=== PATIENT | female | born 1965 | race Caucasian/White ===

== ENCOUNTER 2018-07-12 16:09 | Emergency (ER) | payer SELFPAY ==
[2018-07-12] MEDS ORDERED: CEFTRIAXONE/SWI 1gm 2 GM/20 ML SYR ONE (17:55)
--- NOTE | 2018-07-12 18:04 | RAD REPORT ---
EXAM DESCRIPTION: RAD - Chest Single View - 07/12/2018 5:58 pm CLINICAL HISTORY: Cough;Congestion Chest pain. COMPARISON: No comparisons FINDINGS: Portable technique limits examination quality. Poorly defined lung opacity in the medial right lung base noted. The heart is normal in size. No disp laced fractures. IMPRESSION: Small early pneumonia likely present medial right lung base.
[2018-07-12 18:12] LABS: Absolute Monocytes 0.9 K/uL (0.1-1.3); Basophils % 0.3 % (0-1.3); Eosinophils % 1.4 % (0-4.4); Lymphocytes % 12.2 % (15.3-44.8); MPV 9.2 fL (7.6-11.3); Monocytes % 5.3 % (3.3-12.3)
[2018-07-12 18:28] LABS: Potassium 3.9 mmol/L (3.5-5.1)
--- NOTE | 2018-07-12 18:47 | ER ---
Nurse's Notes [facility] Name: Sena uW Age: 53 yrs Sex: Female : 1965 Arrival Date: 07/12/2018 Time: 16:13 Bed 7 Private MD: None, None Diagnosis: Pneumonia, unspecified organism Presentation: 07/12 16:19 Presenting complaint: Patient states: i have a cough fever and chills for 5 days ago, hj went to my doctor, said i had a virus and i got worse; reports N/V;reports SOB. Transition of care: patient was not received from another setting of care. Onset of symptoms was July 12, 2018. Risk Assessment: Do you want to hurt yourself or someone else? Patient reports no desire to harm self or others. Initial Sepsis Screen: Does the patient meet any 2 criteria? RR > 20 per min. Temp <36.0*C (96.8*F)) or > 38.3*C (100.9*F). Systolic BP < 90 mmHg. Does the patient have a suspected source of infection? Yes: Productive cough/pneumonia. Care prior to arrival: None. 16:19 Method Of Arrival: Ambulatory 16:19 Acuity: DREW 3 hj Triage Assessment: 16:22 General: Appears in no apparent distress. uncomfortable, obese, Behavior is calm, hj cooperative, appropriate for age. Respiratory: Reports shortness of breath cough that is Onset: The symptoms/episode began/occurred the patient has moderate shortness of breath. 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 - Social history:: Smoking status: Patient/guardian denies using tobacco, Patient/guardian denies using alcohol. - Ebola Screening: : Patient negative for fever greater than or equal to 101.5 degrees Fahrenheit, and additional compatible Ebola Virus Disease symptoms Patient denies exposure to infectious person Patient denies travel to an Ebola-affected area in the 21 days before illness onset. Screenin:22 Abuse screen: Denies threats or abuse. Denies injuries from another. Nutritional hj screening: No deficits noted. Tuberculosis screening: No symptoms or risk factors identified. Fall Risk None identified. Assessment: 16:23 Pain: Complains of pain in chest from coughing. Cardiovascular: Rhythm is. Respiratory: hj Airway is patent Respiratory effort is even, unlabored, 17:28 General: Appears in no apparent distress. comfortable, Behavior is calm, cooperative, aj1 appropriate for age. Pain: Complains of pain in face Pain does not radiate. Pain Quality of pain is described as aching, pressure. Neuro: Level of Consciousness is awake, alert, obeys commands. Cardiovascular: Reports shortness of breath. Cardiovascular: Patient's skin is warm and dry. Cardiovascular: Rhythm is regular. Cardiovascular: Heart tones S1 S2 present. Respiratory: Airway is patent Respiratory effort is even, unlabored. Respiratory: Reports shortness of breath cough that is persistent Breath sounds are clear bilaterally. GI: Abdomen is non-distended, obese. : No signs and/or symptoms were reported regarding the genitourinary system. EENT: Reports nasal congestion nasal discharge. Derm: No signs and/or symptoms reported regarding the dermatologic system. Skin is pink, warm \T\ dry. normal. Musculoskeletal: No signs and/or symptoms reported regarding the musculoskeletal system. Circulation, motion, and sensation intact. 18:24 Reassessment: Patient appears in no apparent distress at this time. No changes from aj1 previously documented assessment. Patient and/or family updated on plan of care and expected duration. Pain level reassessed. Patient is alert, oriented x 3, equal unlabored respirations, skin warm/dry/pink. 19:11 Reassessment: Patient appears in no apparent distress at this time. No changes from aj1 previously documented assessment. Patient and/or family updated on plan of care and expected duration. Pain level reassessed. Patient is alert, oriented x 3, equal unlabored respirations, skin warm/dry/pink. Vital Signs: 16:18 BP 110 / 63; Pulse 106; Resp 20; Temp 100.1(O); Pulse Ox 96% on R/A; Weight 154.67 kg; hj Height 5 ft. 1 in. (154.94 cm); 17:28 BP 142 / 80; Pulse 98; Resp 18; Pulse Ox 99% on R/A; aj1 18:24 BP 139 / 79; Pulse 91; Resp 20; Pulse Ox 95% on R/A; aj1 19:11 BP 141 / 81; Pulse 90; Resp 20; Pulse Ox 97% on R/A; aj1 16:18 Body Mass Index 64.43 (154.67 kg, 154.94 cm) ED Course: 16:13 Patient arrived in ED. mr 16:13 None, None is Private Physician. mr 16:20 Triage completed. hj 16:23 Arm band placed on right wrist. hj 16:23 Patient has correct armband on for positive identification. Placed in gown. Bed in low hj position. Call light in reach. 16:52 Jatin Higuera MD is Attending Physician. kdr 17:28 Ayana Jacob RN is Primary Nurse. aj1 17:28 No provider procedures requiring assistance completed. aj1 17:58 Chest Single View In Process Unspecified. EDAZ 18:00 Initial lab(s) drawn, by ne, sent to lab. First set of blood cultures drawn by me. 3 Inserted saline lock: 22 gauge in left antecubital area, using aseptic technique. Blood collected. 18:20 Second set of blood cultures drawn by me. dh3 19:11 IV discontinued, intact, bleeding controlled, No redness/swelling at site. Pressure aj1 dressing applied. Administered Medications: 18:23 Drug: Rocephin - (cefTRIAXone) 2 grams Route: IVPB; Infused Over: 30 mins; Site: left aj1 antecubital; 18:33 Follow up: IV Status: Completed infusion aj1 Outcome: 18:46 Discharge ordered by . kdr 19:12 Discharged to home via wheelchair, with family. aj1 19:12 Condition: good 19:12 Discharge instructions given to patient, Instructed on discharge instructions, follow up and referral plans. medication usage, Demonstrated understanding of instructions, follow-up care, medications, Prescriptions given X 2. 19:23 Patient left the ED. aj1 Signatures: Dispatcher [employer] [facility] Ayana Jacob RN RN aj1 RitJatin tran MD MD kdr Rivera, Mary mr Jarrell Short RN RN Gwen Gutierrez [facility] Corrections: (The following items were deleted from the chart) 16:19 16:18 154.67 kg; Height 5 ft. 1 in.; BMI: 64.4; hj hj 16:23 16:18 Pulse 106bpm; Resp 20bpm; Pulse Ox 96% RA; Temp 100.1F Oral; 154.67 kg; Height 5 hj ft. 1 in.; BMI: 64.4; hj
--- NOTE | 2018-07-12 18:47 | EDPHYS ---
Physician Documentation [facility] Name: Sena Wu Age: 53 yrs Sex: Female : 1965 Arrival Date: 07/12/2018 Time: 16:13 Bed 7 Private MD: None, None ED Physician Jatin Higuera HPI: 07/12 18:10 This 53 yrs old Female presents to ER via Ambulatory with complaints of kdr Shortness Of Breath, Fever, Cough. 18:10 The patient has shortness of breath at rest, with light activity. Onset: The kdr symptoms/episode began/occurred gradually, 5 day(s) ago. Duration: The symptoms are intermittent, with no pattern. The patient's shortness of breath is aggravated by coughing, eating, exertion, light activity, talking, walking. Associated signs and symptoms: Pertinent positives:. Severity of symptoms: At their worst the symptoms were mild moderate in the emergency department the symptoms are unchanged. The patient has not experienced similar symptoms in the past. The patient has been recently seen by a physician: The patient has been recently seen at an urgent care, this week, last week, for similar complaints. 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 - Social history:: Smoking status: Patient/guardian denies using tobacco, Patient/guardian denies using alcohol. - Ebola Screening: : Patient negative for fever greater than or equal to 101.5 degrees Fahrenheit, and additional compatible Ebola Virus Disease symptoms Patient denies exposure to infectious person Patient denies travel to an Ebola-affected area in the 21 days before illness onset. ROS: 18:10 Constitutional: Negative for fever, chills, and weight loss, Eyes: Negative for injury, kdr pain, redness, and discharge, ENT: Negative for injury, pain, and discharge, Neck: Negative for injury, pain, and swelling, Cardiovascular: Negative for chest pain, palpitations, and edema, Respiratory: Negative for shortness of breath, cough, wheezing, and pleuritic chest pain, Abdomen/GI: Negative for abdominal pain, nausea, vomiting, diarrhea, and constipation, Back: Negative for injury and pain, : Negative for injury, bleeding, discharge, and swelling, MS/Extremity: Negative for injury and deformity, Skin: Negative for injury, rash, and discoloration, Neuro: Negative for headache, weakness, numbness, tingling, and seizure activity. Psych: Negative for depression, anxiety, suicide ideation, homicidal ideation, and hallucinations, Allergy/Immunology: Negative for hives, rash, and allergies, Endocrine: Negative for neck swelling, polydipsia, polyuria, polyphagia, and marked weight changes, Hematologic/Lymphatic: Negative for swollen nodes, abnormal bleeding, and unusual bruising. Exam: 18:10 Constitutional: This is a well developed, well nourished obese patient who is awake, kdr alert, and in mildacute distress. Head/Face: Normocephalic, atraumatic. Eyes: Pupils equal round and reactive to light, extra-ocular motions intact. Lids and lashes normal. Conjunctiva and sclera are non-icteric and not injected. Cornea within normal limits. Periorbital areas with no swelling, redness, or edema. Neck: Trachea midline, no thyromegaly or masses palpated, and no cervical lymphadenopathy. Supple, full range of motion without nuchal rigidity, or vertebral point tenderness. No Meningismus. Chest/axilla: Normal chest wall appearance and motion. Nontender with no deformity. No lesions are appreciated. Cardiovascular: Regular rate and rhythm with a normal S1 and S2. No gallops, murmurs, or rubs. Normal PMI, no JVD. No pulse deficits. Abdomen/GI: Soft, non-tender, with normal bowel sounds. No distension or tympany. No guarding or rebound. No evidence of tenderness throughout. Back: No spinal tenderness. No costovertebral tenderness. Full range of motion. Skin: Warm, dry with normal turgor. Normal color with no rashes, no lesions, and no evidence of cellulitis. MS/ Extremity: Pulses equal, no cyanosis. Neurovascular intact. Full, normal range of motion. Neuro: Awake and alert, GCS 15, oriented to person, place, time, and situation. Cranial nerves II-XII grossly intact. Motor strength 5/5 in all extremities. Sensory grossly intact. Cerebellar exam normal. Normal gait. Psych: Awake, alert, with orientation to person, place and time. Behavior, mood, and affect are within normal limits. 18:10 Respiratory: the patient does not display signs of respiratory distress, Respirations: Breath sounds: rales, are scattered, are located in both bases, are heard diffusely, rhonchi. Vital Signs: 16:18 BP 110 / 63; Pulse 106; Resp 20; Temp 100.1(O); Pulse Ox 96% on R/A; Weight 154.67 kg; hj Height 5 ft. 1 in. (154.94 cm); 17:28 BP 142 / 80; Pulse 98; Resp 18; Pulse Ox 99% on R/A; aj1 18:24 BP 139 / 79; Pulse 91; Resp 20; Pulse Ox 95% on R/A; aj1 19:11 BP 141 / 81; Pulse 90; Resp 20; Pulse Ox 97% on R/A; aj1 16:18 Body Mass Index 64.43 (154.67 kg, 154.94 cm) hj MDM: 18:10 Data reviewed: vital signs, nurses notes, lab test result(s), radiologic studies. kdr Counseling: I had a detailed discussion with the patient and/or guardian regarding: the historical points, exam findings, and any diagnostic results supporting the discharge/admit diagnosis, lab results, radiology results, the need for outpatient follow up. 18:46 Patient medically screened. kdr 07/12 16:29 Order name: Flu; Complete Time: 17:31 kb 07/12 17:31 Order name: CBC with Diff; Complete Time: 18:44 kdr 07/12 17:31 Order name: Chem 7; Complete Time: 18:44 kdr 07/12 17:31 Order name: Blood Culture Adult (2) kdr 07/12 17:31 Order name: Lactate; Complete Time: 18:44 kdr 07/12 17:31 Order name: Procalcitonin; Complete Time: 18:44 kdr 07/12 17:31 Order name: Chest Single View; Complete Time: 18:44 EDMS Administered Medications: 18:23 Drug: Rocephin - (cefTRIAXone) 2 grams Route: IVPB; Infused Over: 30 mins; Site: left aj1 antecubital; 18:33 Follow up: IV Status: Completed infusion aj1 Disposition: 07/12/18 18:46 Discharged to Home. Impression: Pneumonia, unspecified organism. - Condition is Stable. - Discharge Instructions: Community-Acquired Pneumonia, Adult. - Prescriptions for Promethazine VC 6.25- 5 mg/5 mL Oral syrup - take 5 milliliter by ORAL route every 4 hours As needed Take 5 - 10 ml every 6 hoursd as needed for cough; 200 milliliter. Augmentin 875- 125 mg Oral Tablet - take 1 tablet by ORAL route every 12 hours for 10 days; 20 tablet. - Medication Reconciliation Form, Thank You Letter, Antibiotic Education, Prescription Opioid Use form. - Follow up: Private Physician; When: 2 - 3 days; Reason: If symptoms return, Further diagnostic work-up, Recheck today's complaints, Continuance of care, Re-evaluation by your physician. - Problem is new. - Symptoms have improved. Signatures: Dispatcher [employer] [facility] Ayana Jacob RN RN aj1 Jatin Higuera MD MD [facility] Jarrell Short RN RN hj Corrections: (The following items were deleted from the chart) 17:31 16:30 Chest Pa And Lat (2 Views)+[id number].[email or web address] ordered. [facility] 19:23 18:46 07/12/2018 18:46 Discharged to Home. Impression: Pneumonia, unspecified organism. aj1 Condition is Stable. Forms are Medication Reconciliation Form, Thank You Letter, Antibiotic Education, Prescription Opioid Use. Follow up: Private Physician; When: 2 - 3 days; Reason: If symptoms return, Further diagnostic work-up, Recheck today's complaints, Continuance of care, Re-evaluation by your physician. Problem is new. Symptoms have improved. kdr
== END 2018-07-12 19:23 | disposition home or self-care (01) ==
LOC: ER 16:09
DX: J18.9 Pneumonia, unspecified organism (principal); I10 Essential (primary) hypertension; F32.9 Major depressive disorder, single episode, unspecified; Z79.1 Long term (current) use of non-steroidal anti-inflammatories (NSAID); Z79.899 Other long term (current) drug therapy
CPT/HCPCS: 36415; 71045; 80048; 83605; 84145; 85025; 87040; 87804; 96374; 99284; J0696

== ENCOUNTER 2018-07-26 18:04 | Emergency (ER) | payer SELFPAY ==
--- NOTE | 2018-07-26 19:43 | EDPHYS ---
Physician Documentation [facility] Name: Sena Wu Age: 53 yrs Sex: Female : 1965 Arrival Date: 07/26/2018 Time: 18:07 Bed 19 Private MD: ED Physician Michael Pacheco HPI: 07/26 19:00 This 53 yrs old Female presents to ER via Ambulatory with complaints of Sore pm1 throat. 19:00 The patient presents with sore throat. The patient describes throat pain as constant, pm1 scratchy. Onset: The symptoms/episode began/occurred yesterday. Modifying factors: The symptoms are alleviated by nothing, the symptoms are aggravated by nothing, Patient's oral intake status: good Denies contact with similarly ill indivduals. Associated signs and symptoms: Pertinent positives: cough, nasal congestion, Pertinent negatives fever, flu-like symptoms. The patient has been recently seen at the [facility] Emergency Department, a couple of weeks ago, diagnosed with pneumonia. Has completed antibiotics and feels better. Was given a prescription for cough suppressant but did not fill it due to the cost. Has some occasional coughing. No chest pain or shortness of breath. 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 - Social history:: Smoking status: Patient/guardian denies using tobacco. - Ebola Screening: : No symptoms or risks identified at this time. ROS: 19:00 Constitutional: Negative for fever, chills, and weight loss, Eyes: Negative for injury, pm1 pain, redness, and discharge. 19:00 Neck: Negative for injury, pain, and swelling, Cardiovascular: Negative for chest pain, palpitations, and edema. 19:00 Abdomen/GI: Negative for abdominal pain, nausea, vomiting, diarrhea, and constipation, Back: Negative for injury and pain, : Negative for injury, bleeding, discharge, and swelling, MS/Extremity: Negative for injury and deformity, Skin: Negative for injury, rash, and discoloration, Neuro: Negative for headache, weakness, numbness, tingling, and seizure. 19:00 ENT: Positive for sinus congestion, sore throat, Negative for drainage from ear(s), ear pain. 19:00 Respiratory: Positive for cough, Negative for shortness of breath, sputum production, wheezing. Exam: 19:00 Constitutional: This is a well developed, well nourished patient who is awake, alert, pm1 and in no acute distress. Head/Face: Normocephalic, atraumatic. Eyes: Pupils equal round and reactive to light, extra-ocular motions intact. Lids and lashes normal. Conjunctiva and sclera are non-icteric and not injected. Cornea within normal limits. Periorbital areas with no swelling, redness, or edema. ENT: Nares patent. No nasal discharge, no septal abnormalities noted. Tympanic membranes are normal and external auditory canals are clear. Oropharynx with no redness, swelling, or masses, exudates, or evidence of obstruction, uvula midline. Mucous membranes moist. Neck: Trachea midline, no thyromegaly or masses palpated, and no cervical lymphadenopathy. Supple, full range of motion without nuchal rigidity, or vertebral point tenderness. No Meningismus. Chest/axilla: Normal chest wall appearance and motion. Nontender with no deformity. No lesions are appreciated. Cardiovascular: Regular rate and rhythm with a normal S1 and S2. No gallops, murmurs, or rubs. Normal PMI, no JVD. No pulse deficits. Respiratory: Lungs have equal breath sounds bilaterally, clear to auscultation and percussion. No rales, rhonchi or wheezes noted. No increased work of breathing, no retractions or nasal flaring. 19:00 Back: No spinal tenderness. No costovertebral tenderness. Full range of motion. Skin: Warm, dry with normal turgor. Normal color with no rashes, no lesions, and no evidence of cellulitis. MS/ Extremity: Pulses equal, no cyanosis. Neurovascular intact. Full, normal range of motion. 19:00 Abdomen/GI: Inspection: obese Bowel sounds: normal, Palpation: abdomen is soft and non-tender. 19:00 Neuro: Orientation: is normal, Motor: is normal, moves all fours. Vital Signs: 18:19 BP 143 / 83; Pulse 86; Resp 16 S; Temp 97.9(O); Pulse Ox 97% on R/A; Weight 156.49 kg jl7 (R); Height 5 ft. 1 in. (154.94 cm) (R); Pain 0/10; 19:05 BP 126 / 80; Pulse 80; Resp 17; Temp 97.9; Pulse Ox 98% ; rr5 20:00 BP 125 / 70; Pulse 75; Resp 16; Pulse Ox 99% ; rr5 18:19 Body Mass Index 65.19 (156.49 kg, 154.94 cm) jl7 MDM: 18:34 Patient medically screened. pm1 19:27 Data reviewed: vital signs. Data interpreted: Pulse oximetry: on room air is 98 %. pm1 Interpretation: normal. 19:38 Counseling: I had a detailed discussion with the patient and/or guardian regarding: the pm1 historical points, exam findings, and any diagnostic results supporting the discharge/admit diagnosis, lab results, the need for outpatient follow up, to return to the emergency department if symptoms worsen or persist or if there are any questions or concerns that arise at home. 07/26 18:53 Order name: Strep; Complete Time: 19:27 pm1 07/26 19:27 Order name: Throat Culture EDMS Administered Medications: No medications were administered Disposition: 07/26/18 19:42 Discharged to Home. Impression: Acute pharyngitis. - Condition is Stable. - Discharge Instructions: Pharyngitis. - Medication Reconciliation Form, Thank You Letter, Antibiotic Education, Prescription Opioid Use form. - Follow up: Emergency Department; When: As needed; Reason: Worsening of condition. Follow up: Private Physician; When: 2 - 3 days; Reason: Recheck today's complaints, Continuance of care, Re-evaluation by your physician. - Problem is new. - Symptoms have improved. Addendum: 07/29/2018 20:26 Co-signature as Attending Physician, Michael Pacheco MD. r n Signatures: Dispatcher [employer] EDMichael Addison MD MD rn Marinas, Patrick, PLASTIC BLOCK BOILER RELINER PLASTIC BLOCK BOILER RELINER pm1 Juani Toro RN RN jl7 Dylon Finnegan RN RN rr5 Corrections: (The following items were deleted from the chart) 07/26 20:10 19:42 07/26/2018 19:42 Discharged to Home. Impression: Acute pharyngitis. Condition is rr5 Stable. Forms are Medication Reconciliation Form, Thank You Letter, Antibiotic Education, Prescription Opioid Use. Follow up: Emergency Department; When: As needed; Reason: Worsening of condition. Follow up: Private Physician; When: 2 - 3 days; Reason: Recheck today's complaints, Continuance of care, Re-evaluation by your physician. Problem is new. Symptoms have improved. pm1
--- NOTE | 2018-07-26 19:43 | ER ---
Nurse's Notes [facility] Name: Sena Wu Age: 53 yrs Sex: Female : 1965 Arrival Date: 07/26/2018 Time: 18:07 Bed 19 Private MD: Diagnosis: Acute pharyngitis Presentation: 07/26 18:16 Presenting complaint: Patient states: It feels like I can't swallow sometimes, started jl7 yesterday. Transition of care: patient was not received from another setting of care. Onset of symptoms was July 25, 2018. Risk Assessment: Do you want to hurt yourself or someone else? Patient reports no desire to harm self or others. Initial Sepsis Screen: Does the patient meet any 2 criteria? No. Patient's initial sepsis screen is negative. Does the patient have a suspected source of infection? No. Patient's initial sepsis screen is negative. Care prior to arrival: None. 18:16 Method Of Arrival: Ambulatory jl7 18:16 Acuity: DREW 3 jl7 Triage Assessment: 18:19 General: Appears in no apparent distress. uncomfortable, Behavior is calm, cooperative, jl7 appropriate for age. Pain: Denies pain. EENT: Throat is clear. 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 - Social history:: Smoking status: Patient/guardian denies using tobacco. - Ebola Screening: : No symptoms or risks identified at this time. Screenin:00 Abuse screen: Denies threats or abuse. Denies injuries from another. Nutritional rr5 screening: No deficits noted. Tuberculosis screening: No symptoms or risk factors identified. Fall Risk None identified. Assessment: 19:05 General: Appears in no apparent distress. comfortable, Behavior is calm, cooperative, rr5 appropriate for age. Pain: Denies pain. Neuro: Level of Consciousness is awake, alert, obeys commands, Oriented to person, place, time, situation, Appropriate for age. Cardiovascular: Capillary refill < 3 seconds Patient's skin is warm and dry. Respiratory: Airway is patent Respiratory effort is even, unlabored, Respiratory pattern is regular, symmetrical. GI: Abdomen is obese. : No signs and/or symptoms were reported regarding the genitourinary system. EENT: Throat is clear is pink Reports difficulty swallowing. Derm: Skin is intact, Skin temperature is warm. Musculoskeletal: Capillary refill < 3 seconds, Range of motion: intact in all extremities. 20:00 Reassessment: Patient appears in no apparent distress at this time. Patient and/or rr5 family updated on plan of care and expected duration. Pain level reassessed. discharge instruction given and explained without complaints made. Patient states feeling better. Patient states symptoms have improved. Vital Signs: 18:19 BP 143 / 83; Pulse 86; Resp 16 S; Temp 97.9(O); Pulse Ox 97% on R/A; Weight 156.49 kg jl7 (R); Height 5 ft. 1 in. (154.94 cm) (R); Pain 0/10; 19:05 BP 126 / 80; Pulse 80; Resp 17; Temp 97.9; Pulse Ox 98% ; rr5 20:00 BP 125 / 70; Pulse 75; Resp 16; Pulse Ox 99% ; rr5 18:19 Body Mass Index 65.19 (156.49 kg, 154.94 cm) jl7 ED Course: 18:07 Patient arrived in ED. rg4 18:17 Triage completed. jl7 18:19 Arm band placed on right wrist. jl7 18:22 Cristian Rueda NP is PHCP. pm1 18:22 Michael Pacheco MD is Attending Physician. pm1 18:30 Charlotte Rosario, JADA is Primary Nurse. aj 19:00 Patient has correct armband on for positive identification. Bed in low position. Call rr5 light in reach. Side rails up X 1. Pulse ox on. NIBP on. 20:08 No provider procedures requiring assistance completed. Patient did not have IV access rr5 during this emergency room visit. Administered Medications: No medications were administered Outcome: 19:42 Discharge ordered by MD. pm1 20:00 Discharged to home ambulatory. rr5 20:00 Condition: stable 20:00 Discharge instructions given to patient, Instructed on discharge instructions, follow up and referral plans. Demonstrated understanding of instructions, follow-up care, Prescriptions given X 20:10 Patient left the ED. rr5 Signatures: Charlotte Rosario RN RN Cristian Rucker, ALLI INTERVENTIONAL RADIOLOGY TECHNOLOGIST pm1 Naomi Jackson rg4 Juani Toro RN RN jl7 Dylon Finnegan RN RN rr5
== END 2018-07-26 20:10 | disposition home or self-care (01) ==
LOC: ER 18:04
DX: J02.9 Acute pharyngitis, unspecified (principal); I10 Essential (primary) hypertension; F32.9 Major depressive disorder, single episode, unspecified; Z88.5 Allergy status to narcotic agent; Z88.6 Allergy status to analgesic agent; Z88.8 Allergy status to other drugs, medicaments and biological substances
CPT/HCPCS: 87070; 87081; 99283

== ENCOUNTER 2018-12-27 10:58 | Emergency (ER) | payer SELFPAY ==
[2018-12-27 12:36] LABS: Absolute Lymphocytes (CBC) 2.1 K/uL (0.7-4.9); Absolute Monocytes 0.5 K/uL (0.1-1.3); Absolute Neutrophil 6.5 K/uL (1.8-8.0); Basophils % 0.7 % (0-1.3); Eosinophils % 4.1 % (0-4.4); Hematocrit 43.7 % (36.0-45.0); Lymphocytes % 21.6 % (15.3-44.8); MPV 9.1 fL (7.6-11.3); Monocytes % 5.2 % (3.3-12.3); RBC Red Blood Cell Count 5.22 M/uL (3.86-4.86)
[2018-12-27] MEDS ORDERED: ALBUTEROL 2.5 MG/3 ML NEB SOL ONE ×2 (12:37→12:57)
[2018-12-27] MEDS ORDERED: IPRATROPIUM BROM 0.5MG/2.5ML ONE (12:37)
[2018-12-27] MEDS ORDERED: predniSONE 20 MG TAB ONE (12:38)
--- NOTE | 2018-12-27 13:34 | RAD REPORT ---
EXAM DESCRIPTION: Sarah Miller (2 Views)12/27/2018 1:28 pm CLINICAL HISTORY: Cough COMPARISON: June 2018 FINDINGS: The lungs appear clear of acute infiltrate. The heart is normal size IMPRESSION: No acute abnormalities displayed
--- NOTE | 2018-12-27 14:17 | EDPHYS ---
Physician Documentation [facility] Name: Sena Wu Age: 53 yrs Sex: Female : 1965 Arrival Date: 12/27/2018 Time: 11:02 Bed 14 Private MD: ED Physician Johnnie Rajan HPI: 12/27 14:16 This 53 yrs old Female presents to ER via Ambulatory with complaints of kb Breathing Difficulty. 14:16 The patient has shortness of breath at rest. kb 14:20 Onset: The symptoms/episode began/occurred 1 week(s) ago. Duration: The symptoms are kb continuous. The patient's shortness of breath is aggravated by nothing, is alleviated by nothing. Associated signs and symptoms: Pertinent positives: chest pain, non-productive cough. Severity of symptoms: At their worst the symptoms were moderate in the emergency department the symptoms are unchanged. The patient has experienced similar episodes in the past, chronically. The patient has been recently seen by a physician:. Pt reports cough, congestion, chest tightness and shortness of breath for a week. Went to the clinic today and they told her they "heard something in her lung" so she needed to come to the ER. . 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 - Social history:: Smoking status: Patient/guardian denies using tobacco. - Ebola Screening: : Patient negative for fever greater than or equal to 101.5 degrees Fahrenheit, and additional compatible Ebola Virus Disease symptoms Patient denies exposure to infectious person Patient denies travel to an Ebola-affected area in the 21 days before illness onset. ROS: 14:13 Neck: Negative for injury, pain, and swelling, Cardiovascular: Negative for chest pain, kb palpitations, and edema, Abdomen/GI: Negative for abdominal pain, nausea, vomiting, diarrhea, and constipation, Back: Negative for injury and pain, MS/Extremity: Negative for injury and deformity, Skin: Negative for injury, rash, and discoloration, Neuro: Negative for headache, weakness, numbness, tingling, and seizure. 14:13 Constitutional: Positive for chills. 14:13 ENT: Positive for sinus congestion. 14:13 Respiratory: Positive for cough, shortness of breath, Negative for dyspnea on exertion, hemoptysis, orthopnea, pleurisy, sputum production, wheezing. Exam: 14:13 Constitutional: This is a well developed, well nourished patient who is awake, alert, kb and in no acute distress. Head/Face: Normocephalic, atraumatic. ENT: Nares patent. No nasal discharge, no septal abnormalities noted. Tympanic membranes are normal and external auditory canals are clear. Oropharynx with no redness, swelling, or masses, exudates, or evidence of obstruction, uvula midline. Mucous membranes moist. Neck: Trachea midline, no thyromegaly or masses palpated, and no cervical lymphadenopathy. Supple, full range of motion without nuchal rigidity, or vertebral point tenderness. No Meningismus. Chest/axilla: Normal chest wall appearance and motion. Nontender with no deformity. No lesions are appreciated. Cardiovascular: Regular rate and rhythm with a normal S1 and S2. No gallops, murmurs, or rubs. Normal PMI, no JVD. No pulse deficits. Respiratory: Lungs have equal breath sounds bilaterally, clear to auscultation and percussion. No rales, rhonchi or wheezes noted. No increased work of breathing, no retractions or nasal flaring. Abdomen/GI: Soft, non-tender, with normal bowel sounds. No distension or tympany. No guarding or rebound. No evidence of tenderness throughout. Back: No spinal tenderness. No costovertebral tenderness. Full range of motion. Skin: Warm, dry with normal turgor. Normal color with no rashes, no lesions, and no evidence of cellulitis. MS/ Extremity: Pulses equal, no cyanosis. Neurovascular intact. Full, normal range of motion. Neuro: Awake and alert, GCS 15, oriented to person, place, time, and situation. Cranial nerves II-XII grossly intact. Motor strength 5/5 in all extremities. Sensory grossly intact. Cerebellar exam normal. Normal gait. Vital Signs: 11:08 BP 142 / 74; Pulse 96; Resp 20; Temp 97.2(TE); Pulse Ox 96% on R/A; Weight 172.37 kg; hj Height 5 ft. 1 in. (154.94 cm); Pain 5/10; 13:01 BP 132 / 82; Pulse 98; Resp 21; Pulse Ox 97% on R/A; ae4 13:44 BP 127 / 74; Pulse 80; Resp 19; Pulse Ox 95% on R/A; ae4 14:27 BP 122 / 87; Pulse 87; Resp 19; Pulse Ox 94% on R/A; ae4 11:08 Body Mass Index 71.80 (172.37 kg, 154.94 cm) MDM: 11:59 Patient medically screened. kb 14:13 Data reviewed: vital signs, nurses notes. Data interpreted: Pulse oximetry: on room air kb is 95 %. Interpretation: normal. 14:15 Counseling: I had a detailed discussion with the patient and/or guardian regarding: the kb historical points, exam findings, and any diagnostic results supporting the discharge/admit diagnosis, lab results, radiology results, the need for outpatient follow up, a family practitioner, to return to the emergency department if symptoms worsen or persist or if there are any questions or concerns that arise at home. ED course: Pt has work emergency and wants to leave. Pt reports she is feeling better. Does not want to wait on rest of blood work. 12/27 12:17 Order name: CBC with Diff; Complete Time: 12:45 kb 12/27 12:17 Order name: Basic Metabolic Panel; Complete Time: 14:24 kb 12/27 11:10 Order name: EKG - Nurse/Tech; Complete Time: 11:10 hj 12/27 12:17 Order name: Chest Pa And Lat (2 Views) XRAY; Complete Time: 13:40 kb 12/27 12:17 Order name: IV Start; Complete Time: 12:27 kb Administered Medications: 12:28 Drug: predniSONE 60 mg Route: PO; ae4 13:42 Follow up: Response: No adverse reaction ae4 12:28 Drug: DuoNeb (3:1) (2.5 mg - 0.5 mg) 3 ml Route: Nebulizer; ae4 13:41 Follow up: Response: Wheezing diminished ae4 Disposition: 18:58 Co-signature as Attending Physician, Johnnie Rajan MD Available for consultation at ps1 all times. . Disposition: 12/27/18 14:15 Discharged to Home. Impression: Chronic obstructive pulmonary disease, unspecified, Bronchitis, not specified as acute or chronic. - Condition is Stable. - Discharge Instructions: Chronic Obstructive Pulmonary Disease, Acute Bronchitis, [id number], Viral Respiratory Infection, [id number]. - Prescriptions for Prednisone 20 mg Oral Tablet - take 1 tablet by ORAL route once daily for 5 days; 5 tablet. - Medication Reconciliation Form, Thank You Letter, Antibiotic Education, Prescription Opioid Use form. - Follow up: Emergency Department; When: As needed; Reason: Worsening of condition. Follow up: Private Physician; When: 2 - 3 days; Reason: Recheck today's complaints, Continuance of care, Re-evaluation by your physician. Signatures: Dispatcher [employer] [facility]VA Maribel Borges, ANALYSIS LEAD-C ANALYSIS LEAD-Ckb Jarrell Short RN RN hj Johnnie Rajan MD MD ps1 Leif Mijares RN RN ae4 Corrections: (The following items were deleted from the chart) 14:29 14:15 12/27/2018 14:15 Discharged to Home. Impression: Chronic obstructive pulmonary ae4 disease, unspecified; Bronchitis, not specified as acute or chronic. Condition is Stable. Forms are Medication Reconciliation Form, Thank You Letter, Antibiotic Education, Prescription Opioid Use. Follow up: Emergency Department; When: As needed; Reason: Worsening of condition. Follow up: Private Physician; When: 2 - 3 days; Reason: Recheck today's complaints, Continuance of care, Re-evaluation by your physician. kb
--- NOTE | 2018-12-27 14:17 | ER ---
Nurse's Notes [facility] Name: Sena Wu Age: 53 yrs Sex: Female : 1965 Arrival Date: 12/27/2018 Time: 11:02 Bed 14 Private MD: Diagnosis: Chronic obstructive pulmonary disease, unspecified;Bronchitis, not specified as acute or chronic Presentation: 12/27 11:06 Presenting complaint: Patient states: my chest is hurting and i have a cough and hj congestion since last , been Sudafed and Mucinex and not been helping; reports night sweats;. Transition of care: patient was not received from another setting of care. Onset of symptoms was December 27, 2018. Risk Assessment: Do you want to hurt yourself or someone else? Patient reports no desire to harm self or others. Initial Sepsis Screen: Does the patient meet any 2 criteria? No. Patient's initial sepsis screen is negative. Does the patient have a suspected source of infection? No. Patient's initial sepsis screen is negative. Care prior to arrival: None. 11:06 Method Of Arrival: Ambulatory 11:06 Acuity: DREW 3 Triage Assessment: 13:04 General: Appears in no apparent distress. uncomfortable. Respiratory: the patient has ae4 moderate shortness of breath. 13:04 Respiratory: Onset: The symptoms/episode began/occurred gradually. 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 - Social history:: Smoking status: Patient/guardian denies using tobacco. - Ebola Screening: : Patient negative for fever greater than or equal to 101.5 degrees Fahrenheit, and additional compatible Ebola Virus Disease symptoms Patient denies exposure to infectious person Patient denies travel to an Ebola-affected area in the 21 days before illness onset. Screenin:02 Abuse screen: Denies threats or abuse. Nutritional screening: No deficits noted. ae4 Tuberculosis screening: No symptoms or risk factors identified. Fall Risk None identified. Assessment: 11:20 General: Appears in no apparent distress. uncomfortable, obese, Behavior is ae4 cooperative, appropriate for age, anxious. Neuro: Level of Consciousness is awake, alert, obeys commands, Oriented to person, place, time, situation, Appropriate for age. Cardiovascular: Heart tones S1 S2 present Rhythm is regular. Respiratory: Reports shortness of breath cough that is Airway is patent Respiratory effort is even, shallow, Breath sounds with wheezes bilaterally. Respiratory: Reports. GI: Abdomen is round obese, Bowel sounds present X 4 quads. : No signs and/or symptoms were reported regarding the genitourinary system. EENT: wears glasses.. Reports nasal congestion nasal discharge. Derm: Skin is pink, warm \\T\\ dry. Musculoskeletal: Reports Feeling "run down". 13:01 Reassessment: Patient appears in no apparent distress at this time. Patient states ae4 feeling better. Patient states symptoms have improved. Pain: Denies pain. 13:44 Reassessment: Patient appears in no apparent distress at this time. Patient states ae4 feeling better. Patient states symptoms have improved. Vital Signs: 11:08 BP 142 / 74; Pulse 96; Resp 20; Temp 97.2(TE); Pulse Ox 96% on R/A; Weight 172.37 kg; Height 5 ft. 1 in. (154.94 cm); Pain 5/10; 13:01 BP 132 / 82; Pulse 98; Resp 21; Pulse Ox 97% on R/A; ae4 13:44 BP 127 / 74; Pulse 80; Resp 19; Pulse Ox 95% on R/A; ae4 14:27 BP 122 / 87; Pulse 87; Resp 19; Pulse Ox 94% on R/A; ae4 11:08 Body Mass Index 71.80 (172.37 kg, 154.94 cm) ED Course: 11:02 Patient arrived in ED. mr 11:07 Triage completed. hj 11:08 Arm band placed on right wrist. hj 11:15 Bed in low position. Call light in reach. Side rails up X 1. Pulse ox on. NIBP on. ae4 11:18 EKG done, by senior quality technician. dt2 11:56 Leif Mijares, RN is Primary Nurse. ae4 11:59 Maribel Borges FNP-C is [facility]. kb 11:59 Johnnie Rajan MD is Attending Physician. kb 12:26 Initial lab(s) drawn, by me, sent to lab. Inserted saline lock: 20 gauge in right 3 forearm, using aseptic technique. Blood collected. 12:32 Radiology exam delayed due to patient receiving breathing treatment at this time. ls3 13:24 Patient moved to radiology via wheelchair. ls3 13:28 Chest Pa And Lat (2 Views) XRAY In Process Unspecified. EDMS 13:28 X-ray completed. Patient tolerated procedure well. Patient moved back from radiology. ls3 13:42 Lab(s) recollected, by me, sent to lab. dh3 14:28 No provider procedures requiring assistance completed. IV discontinued, intact, ae4 bleeding controlled, No redness/swelling at site. Pressure dressing applied. Administered Medications: 12:28 Drug: predniSONE 60 mg Route: PO; ae4 13:42 Follow up: Response: No adverse reaction ae4 12:28 Drug: DuoNeb (3:1) (2.5 mg - 0.5 mg) 3 ml Route: Nebulizer; ae4 13:41 Follow up: Response: Wheezing diminished ae4 Outcome: 14:15 Discharge ordered by MD. kb 14:29 Discharged to home via wheelchair. ae4 14:29 Condition: stable 14:29 Discharge instructions given to patient, Instructed on discharge instructions, follow up and referral plans. medication usage, Demonstrated understanding of instructions, Prescriptions given X 1. 14:29 Patient left the ED. ae4 Signatures: Dispatcher [employer] EDNE Maribel Borges FNP-C FNP-Ckb Pedro Pablo Diana mr LandryJarrell mi, RN RN Gwen Carreon 3 Emeli Machuca dt2 Alvin Hernandez ls3 Leif Mijares, RN RN ae4
[2018-12-27 14:19] LABS: Potassium 3.5 mmol/L (3.5-5.1)
--- NOTE | 2018-12-27 21:19 | EKG ---
Test Date: 2018-12-27 Test Time: 11:14:50 Cabinet Mounter: DEONTE MEASUREMENT RESULTS: Intervals: Rate: 92 NH: 146 QRSD: 88 QT: 362 QTc: 447 [place]: P: 26 NH: 146 QRS: -9 T: 29 INTERPRETIVE STATEMENTS: Normal sinus rhythm Minimal voltage criteria for LVH, may be normal variant Cannot rule out Anterior infarct, age undetermined Abnormal ECG No previous ECG available for comparison Electronically Signed On 12-27-18 21:18:17 CDT by Clemente Lindsey
== END 2018-12-27 14:29 | disposition home or self-care (01) ==
LOC: ER 10:58
DX: J40 Bronchitis, not specified as acute or chronic (principal); J44.9 Chronic obstructive pulmonary disease, unspecified; I10 Essential (primary) hypertension; F32.9 Major depressive disorder, single episode, unspecified; Z88.5 Allergy status to narcotic agent; Z88.6 Allergy status to analgesic agent; Z88.8 Allergy status to other drugs, medicaments and biological substances
CPT/HCPCS: 36415; 71046; 80048; 85025; 93005; 94640; 99285; J7512

== ENCOUNTER 2019-01-24 01:16 | Emergency (ER) | payer SELFPAY ==
--- NOTE | 2019-01-24 04:37 | EDPHYS ---
Physician Documentation [facility] Name: Sena Wu Age: 53 yrs Sex: Female : 1965 Arrival Date: 01/24/2019 Time: 01:17 Bed 13 Private MD: ED Physician Michael Pacheco HPI: 01/24 01:36 This 53 yrs old Female presents to ER via Wheelchair with complaints of jr8 Foreign Body In Ear. 01:36 Onset: The symptoms/episode began/occurred acutely, 30 minute(s) ago. The patient has jr8 not experienced similar symptoms in the past. The patient has not recently seen a physician. reports cleaning her ears with Q-tips and the cotton came off the Q-tip and is lodged in her left ear. Tried to remove with peroxide, unsuccessful. Historical: - Allergies: 01:35 Codeine; fc 01:35 ACETAMINOPHEN; fc 01:35 tramadol; fc 01:35 diphenhydramine HCl; fc - Home Meds: 01:35 lisinopril 5 mg oral tab 1 tab once daily [Active]; Mobic 7.5 mg oral tab 1 tab once fc daily [Active]; Flexeril 5 mg Oral tab 1 tab twice a day [Active]; tumeric [Active]; - PMHx: 01:35 Hypertension; COPD; Arthritis; Obesity; Depression; fc - PSHx: 01:35 Tonsillectomy; fc - Immunization history:: Last tetanus immunization: up to date. - Social history:: Smoking status: Patient/guardian denies using tobacco, Patient/guardian denies using alcohol, street drugs. - Ebola Screening: : Patient negative for fever greater than or equal to 101.5 degrees Fahrenheit, and additional compatible Ebola Virus Disease symptoms Patient denies exposure to infectious person Patient denies travel to an Ebola-affected area in the 21 days before illness onset. ROS: 01:36 Constitutional: Negative for fever, chills, and weight loss, Eyes: Negative for injury, jr8 pain, redness, and discharge, Neck: Negative for injury, pain, and swelling, Cardiovascular: Negative for chest pain, palpitations, and edema, Respiratory: Negative for shortness of breath, cough, wheezing, and pleuritic chest pain, Abdomen/GI: Negative for abdominal pain, nausea, vomiting, diarrhea, and constipation, MS/Extremity: Negative for injury and deformity, Skin: Negative for injury, rash, and discoloration, Neuro: Negative for headache, weakness, numbness, tingling, and seizure. 01:36 ENT: Positive for foreign body sensation, hearing loss, of the left ear, Negative for drainage from ear(s), nasal discharge, sinus congestion, dental pain. Exam: 01:36 Constitutional: This is a well developed, well nourished patient who is awake, alert, jr8 and in no acute distress. Head/Face: Normocephalic, atraumatic. Neck: Trachea midline, no thyromegaly or masses palpated, and no cervical lymphadenopathy. Supple, full range of motion without nuchal rigidity, or vertebral point tenderness. No Meningismus. Cardiovascular: Regular rate and rhythm with a normal S1 and S2. No gallops, murmurs, or rubs. Normal PMI, no JVD. No pulse deficits. Respiratory: Lungs have equal breath sounds bilaterally, clear to auscultation and percussion. No rales, rhonchi or wheezes noted. No increased work of breathing, no retractions or nasal flaring. Abdomen/GI: Soft, non-tender, with normal bowel sounds. No distension or tympany. No guarding or rebound. No evidence of tenderness throughout. Skin: Warm, dry with normal turgor. Normal color with no rashes, no lesions, and no evidence of cellulitis. Neuro: Awake and alert, GCS 15, oriented to person, place, time, and situation. Cranial nerves II-XII grossly intact. Motor strength 5/5 in all extremities. Sensory grossly intact. Cerebellar exam normal. Normal gait. 01:36 ENT: External ear(s): are unremarkable, Ear canal(s): foreign body, a piece of a Q-tip, in the left external ear canal, Examination of the other ear shows no obvious abnormality, Nose: is normal, Mouth: is normal, Posterior pharynx: is normal, airway is patent. Vital Signs: 01:20 BP 142 / 56; Pulse 103; Resp 18; Temp 97.8(O); Pulse Ox 94% on R/A; Weight 172.37 kg fc (R); Height 5 ft. 1 in. (154.94 cm) (R); Pain 2/10; 01:20 Body Mass Index 71.80 (172.37 kg, 154.94 cm) Procedures: 01:36 Foreign Body Removal: cotton piece of Q-tip, from the left ear canal, by using jr8 alligator clamps, The patient tolerated the removal well. MDM: 01:24 Patient medically screened. jr8 01:36 Differential diagnosis: laceration, ear FB, canal trauma, OM, OE. Data reviewed: vital jr8 signs, nurses notes, and as a result, I will discharge patient. Data interpreted: Pulse oximetry: on room air is 96 %. Interpretation: normal. Counseling: I had a detailed discussion with the patient and/or guardian regarding: to return to the emergency department if symptoms worsen or persist or if there are any questions or concerns that arise at home. Response to treatment: the patient's symptoms have resolved after treatment, FB removed, hearing now normal, and as a result, I will discharge patient. 01:44 ED course: Following removal of FB - hearing normal, denies pain. TM intact with no jr8 evidence of perforation, auditory canal unremarkable with no lacerations or trauma.. Administered Medications: No medications were administered Disposition: 02:55 Co-signature as Attending Physician, Michael Pacheco MD. rn Disposition: 01/24/19 01:41 Discharged to Home. Impression: Foreign body in left ear. - Condition is Stable. - Discharge Instructions: Ear Foreign Body. - Medication Reconciliation Form, Thank You Letter, Antibiotic Education, Prescription Opioid Use form. - Follow up: Private Physician; When: 2 - 3 days; Reason: If symptoms return, Re-evaluation by your physician. - Problem is new. - Symptoms are resolved. Signatures: Batool Julian RN JADA Michael Pacheco MD MD rn Roszak, Josh, PA PA jr8 Mariya Snyder RN RN ea Corrections: (The following items were deleted from the chart) :44 01:41 01/24/2019 01:41 Discharged to Home. Impression: Foreign body in left ear. jr8 Condition is Stable. Forms are Medication Reconciliation Form, Thank You Letter, Antibiotic Education, Prescription Opioid Use. Follow up: Private Physician; When: 2 - 3 days; Reason: If symptoms return, Re-evaluation by your physician. jr8 01:55 01:44 01/24/2019 01:41 Discharged to Home. Impression: Foreign body in left ear. ea Condition is Stable. Discharge Instructions: Ear Foreign Body. Forms are Medication Reconciliation Form, Thank You Letter, Antibiotic Education, Prescription Opioid Use. Follow up: Private Physician; When: 2 - 3 days; Reason: If symptoms return, Re-evaluation by your physician. Problem is new. Symptoms are resolved. jr8
--- NOTE | 2019-01-24 04:38 | ER ---
Nurse's Notes [facility] Name: Sena Wu Age: 53 yrs Sex: Female : 1965 Arrival Date: 01/24/2019 Time: 01:17 Bed 13 Private MD: Diagnosis: Foreign body in left ear Presentation: 01/24 01:20 Presenting complaint: Patient states: that she was cleaning her left ear with a Q-Tip fc and the cotton part got stuck. Having decreased hearing. Transition of care: patient was not received from another setting of care. Onset of symptoms was January 24, 2019 at 01:00. Risk Assessment: Do you want to hurt yourself or someone else? Patient reports no desire to harm self or others. Initial Sepsis Screen: Does the patient meet any 2 criteria? HR > 90 bpm. Yes Does the patient have a suspected source of infection? No. Patient's initial sepsis screen is negative. Care prior to arrival: Attempted to put peroxide in it to get cotton out. 01:20 Method Of Arrival: Wheelchair fc 01:20 Acuity: DREW 4 fc Historical: - Allergies: 01:35 Codeine; fc 01:35 ACETAMINOPHEN; fc 01:35 tramadol; fc 01:35 diphenhydramine HCl; fc - Home Meds: 01:35 lisinopril 5 mg oral tab 1 tab once daily [Active]; Mobic 7.5 mg oral tab 1 tab once fc daily [Active]; Flexeril 5 mg Oral tab 1 tab twice a day [Active]; tumeric [Active]; - PMHx: 01:35 Hypertension; COPD; Arthritis; Obesity; Depression; fc - PSHx: 01:35 Tonsillectomy; fc - Immunization history:: Last tetanus immunization: up to date. - Social history:: Smoking status: Patient/guardian denies using tobacco, Patient/guardian denies using alcohol, street drugs. - Ebola Screening: : Patient negative for fever greater than or equal to 101.5 degrees Fahrenheit, and additional compatible Ebola Virus Disease symptoms Patient denies exposure to infectious person Patient denies travel to an Ebola-affected area in the 21 days before illness onset. Screenin:20 Abuse screen: Denies threats or abuse. Nutritional screening: No deficits noted. fc Tuberculosis screening: No symptoms or risk factors identified. Fall Risk Fall in past 12 months (25 points). No secondary diagnosis (0 pts). No IV (0 pts). Ambulatory Aid- Crutches/Cane/Walker (15 pts). Gait- Impaired (20 pts.). Mental Status- Overestimates/Forgets Limitations (15 pts.). Total Mattson Fall Scale indicates High Risk Score (45 or more points). Fall prevention measures have been instituted. Side Rails Up X 2 Placed Close to Nursing Station Frequent Obs/Assessments Occuring As available patient and family educated on Fall Prevention Program and Strategies. Assessment: 01:41 General: Appears in no apparent distress. Behavior is calm, cooperative, appropriate ea for age. Pain: Denies pain. Neuro: Level of Consciousness is awake, alert, obeys commands, Oriented to person, place, time, situation. Cardiovascular: Patient's skin is warm and dry. Respiratory: Airway is patent Respiratory effort is even, unlabored, Respiratory pattern is regular, symmetrical. GI: No signs and/or symptoms were reported involving the gastrointestinal system. : No signs and/or symptoms were reported regarding the genitourinary system. EENT: Reports q tip cotton stuck in left ear. Derm: Skin is pink, warm \T\ dry. 01:52 Reassessment: Patient and/or family updated on plan of care and expected duration. Pain ea level reassessed. Patient is alert, oriented x 3, equal unlabored respirations, skin warm/dry/pink. 01:53 Reassessment: Patient and/or family updated on plan of care and expected duration. Pain ea level reassessed. Patient is alert, oriented x 3, equal unlabored respirations, skin warm/dry/pink. Discharge instruction given to patient, verbalized the understanding of instruction. No s/s of pain or discomfort noted at this time. Pt left via wheelchair, assisted to vehicle per staff, tolerated well. Vital Signs: 01:20 BP 142 / 56; Pulse 103; Resp 18; Temp 97.8(O); Pulse Ox 94% on R/A; Weight 172.37 kg (R); Height 5 ft. 1 in. (154.94 cm) (R); Pain 2/10; 01:20 Body Mass Index 71.80 (172.37 kg, 154.94 cm) ED Course: 01:17 Patient arrived in ED. ds1 01:20 Arm band placed on Patient placed in an exam room, on a stretcher. fc 01:20 Bed in low position. Call light in reach. Pulse ox on. NIBP on. fc 01:20 No provider procedures requiring assistance completed. fc 01:24 Jj Coleman PA is PHCP. jr8 01:24 Michael Pacheco MD is Attending Physician. jr8 01:31 Triage completed. fc 01:32 Mariya Snyder, RN is Primary Nurse. ea 01:40 Assist provider with foreign body removal of q tip cotton ball from left ear canal. ea using alligator clamps, Set up for procedure. Performed by Jj CARRANZA Patient tolerated well. 01:53 Patient did not have IV access during this emergency room visit. ea Administered Medications: No medications were administered Outcome: 01:41 Discharge ordered by . jr8 01:52 Discharged to home via wheelchair. ea 01:52 Condition: improved 01:52 Discharge instructions given to patient, Instructed on discharge instructions, follow up and referral plans. Demonstrated understanding of instructions, follow-up care. 01:55 Patient left the ED. ea Signatures: Batool Julian, RN RN Li Howell ds1 Jj Coleman PA PA jrMariya Reilly, RN RN anton
== END 2019-01-24 01:55 | disposition home or self-care (01) ==
LOC: ER 01:16
PROC: 09C4XZZ Extirpation of Matter from Left External Auditory Canal, External Approach (ICD-10-PCS; principal; 2019-01-24)
DX: T16.2XXA Foreign body in left ear, initial encounter (principal); I10 Essential (primary) hypertension; F32.9 Major depressive disorder, single episode, unspecified; J44.9 Chronic obstructive pulmonary disease, unspecified; Z88.5 Allergy status to narcotic agent; Z88.6 Allergy status to analgesic agent; Z88.8 Allergy status to other drugs, medicaments and biological substances
CPT/HCPCS: 99283

== ENCOUNTER 2020-01-03 13:39 | Emergency (ER) | payer SELFPAY ==
[2020-01-03 16:00] LABS: Absolute Lymphocytes (CBC) 1.9 K/uL (0.7-4.9); Basophils % 0.8 % (0-1.3); Hematocrit 46.7 % (36.0-45.0)
[2020-01-03 16:06] LABS: Protime INR 1.03
[2020-01-03 16:33] LABS: ALT/SGPT 23 U/L (12-78); AST/SGOT 16 U/L (15-37); Albumin 3.6 g/dL (3.4-5.0); Alkaline Phosphatase 93 U/L (45-117); BUN Blood Urea Nitrogen 12 mg/dL (7-18); Bicarbonate 27 mmol/L (21-32); Bilirubin Direct 0.2 mg/dL (0-0.2); Bilirubin Total 1.3 mg/dL (0.2-1.0); Glucose Level 85 mg/dL (74-106); Magnesium 2.1 mg/dL (1.8-2.4); NT PRO-BNP 69 pg/mL (<125); Protein, Total 7.6 g/dL (6.4-8.2); Sodium Level 139 mmol/L (136-145); Troponin (Emerg Dept Use Only) < 0.02 ng/mL (0.0-0.045)
--- NOTE | 2020-01-03 16:33 | RAD REPORT ---
EXAM DESCRIPTION: Sarah Single View01/03/2020 4:07 pm CLINICAL HISTORY: Chest pain COMPARISON: 2018 FINDINGS: The lungs appear clear of acute infiltrate. The heart is normal size IMPRESSION: No acute abnormalities displayed
--- NOTE | 2020-01-03 16:49 | EDPHYS ---
Physician Documentation [facility] Name: Sena Wu Age: 54 yrs Sex: Female : 1965 Arrival Date: 01/03/2020 Time: 13:42 Bed 20 Private MD: ED Physician Jatin Higuera HPI: 01/02 16:59 This 54 yrs old Female presents to ER via Wheelchair with complaints of Rash. jr8 16:59 Onset: The symptoms/episode began/occurred gradually, 5 day(s) ago. Associated signs jr8 and symptoms: Pertinent positives: Pain. Severity of symptoms: At their worst the symptoms were mild in the emergency department the symptoms are unchanged. The patient has not experienced similar symptoms in the past. The patient has not recently seen a physician. Patient stated that she has sore area to left gluteal cleft and vaginal region. Also having chest tightness with breathing. Vaginal pain worse for past 4-5 days. Historical: - Allergies: 13:48 ACETAMINOPHEN; ss 13:48 Codeine; ss 13:48 tramadol; ss 13:48 diphenhydramine HCl; ss - Home Meds: 13:48 Flexeril 5 mg Oral tab 1 tab twice a day [Active]; lisinopril 20 mg oral tab 1 tab once ss daily [Active]; - PMHx: 13:48 Arthritis; COPD; Depression; Hypertension; Obesity; ss - PSHx: 13:48 Tonsillectomy; ss - Immunization history:: Adult Immunizations up to date. - Social history:: Smoking status: Patient denies any tobacco usage or history of. ROS: 16:59 Eyes: Negative for injury, pain, redness, and discharge, ENT: Negative for injury, jr8 pain, and discharge, Neck: Negative for injury, pain, and swelling, Respiratory: Negative for shortness of breath, cough, wheezing, and pleuritic chest pain, Abdomen/GI: Negative for abdominal pain, nausea, vomiting, diarrhea, and constipation, Back: Negative for injury and pain, MS/Extremity: Negative for injury and deformity, Neuro: Negative for headache, weakness, numbness, tingling, and seizure. 16:59 Cardiovascular: Positive for chest pain, Negative for edema, orthopnea, palpitations, paroxysmal nocturnal dyspnea. 16:59 : Positive for vaginal itching. 16:59 Skin: Positive for rash. Exam: 16:59 Eyes: Pupils equal round and reactive to light, extra-ocular motions intact. Lids and jr8 lashes normal. Conjunctiva and sclera are non-icteric and not injected. Cornea within normal limits. Periorbital areas with no swelling, redness, or edema. ENT: Nares patent. No nasal discharge, no septal abnormalities noted. Tympanic membranes are normal and external auditory canals are clear. Oropharynx with no redness, swelling, or masses, exudates, or evidence of obstruction, uvula midline. Mucous membranes moist. Neck: Trachea midline, no thyromegaly or masses palpated, and no cervical lymphadenopathy. Supple, full range of motion without nuchal rigidity, or vertebral point tenderness. No Meningismus. Cardiovascular: Regular rate and rhythm with a normal S1 and S2. No gallops, murmurs, or rubs. Normal PMI, no JVD. No pulse deficits. Respiratory: Lungs have equal breath sounds bilaterally, clear to auscultation and percussion. No rales, rhonchi or wheezes noted. No increased work of breathing, no retractions or nasal flaring. Abdomen/GI: Soft, non-tender, with normal bowel sounds. No distension or tympany. No guarding or rebound. No evidence of tenderness throughout. Back: No spinal tenderness. No costovertebral tenderness. Full range of motion. MS/ Extremity: Pulses equal, no cyanosis. Neurovascular intact. Full, normal range of motion. Neuro: Awake and alert, GCS 15, oriented to person, place, time, and situation. Cranial nerves II-XII grossly intact. Motor strength 5/5 in all extremities. Sensory grossly intact. Cerebellar exam normal. Normal gait. 16:59 : Pelvic Exam: External exam: erythema is noted, no appreciated Bartholin's cyst, not excoriated, no evidence of foreign body, no lesions, no ulcerations, no warts seen, the nurse was present for the exam. 16:59 Skin: Patient has hypertrophic like skin growth to left gluteal fold. No redness or other signs of infection noted . Vital Signs: 13:44 BP 134 / 90; Pulse 78; Resp 18; Temp 97.4(TE); Pulse Ox 98% on R/A; Weight 176.9 kg; ss Height 5 ft. 1 in. (154.94 cm); Pain 5/10; 16:45 BP 115 / 73; Pulse 75; Resp 16; Pulse Ox 100% ; jl7 13:44 Body Mass Index 73.69 (176.90 kg, 154.94 cm) ss MDM: 15:00 Patient medically screened. jr8 16:45 Data reviewed: vital signs, nurses notes, lab test result(s), EKG, radiologic studies, jr8 plain films, and as a result, I will discharge patient. Data interpreted: Pulse oximetry: on room air is 98 %. Interpretation: normal. Counseling: I had a detailed discussion with the patient and/or guardian regarding: the historical points, exam findings, and any diagnostic results supporting the discharge/admit diagnosis, lab results, radiology results, the need for outpatient follow up, a cutter first, a family practitioner, to return to the emergency department if symptoms worsen or persist or if there are any questions or concerns that arise at home. ED course: Discussed with patient that the area of tenderness that she is feeling to left gluteal cleft is dendritic like and hypertrophic. May be inflammatory in nature or from HPV related warts. No infection noted. Needs to f/u with dermatology. As for her vaginal region. Most likely vaginitis. Will put her on nystatin powder and give her Diflucan. If worse to come back. Otherwise to f/u with PCP. Patient good with this plan. . 01/02 15:28 Order name: Basic Metabolic Panel; Complete Time: 16:44 01/02 15:28 Order name: CBC with Diff; Complete Time: 16:24 01/02 15:28 Order name: LFT's; Complete Time: 16:44 01/02 15:28 Order name: Magnesium; Complete Time: 16:44 01/02 15:28 Order name: NT PRO-BNP; Complete Time: 16:44 01/02 15:28 Order name: PT-INR; Complete Time: 16:24 01/02 15:28 Order name: Troponin (emerg Dept Use Only); Complete Time: 16:44 01/02 15:28 Order name: XRAY Chest (1 view); Complete Time: 16:44 01/02 15:28 Order name: EKG; Complete Time: 15:29 01/02 15:28 Order name: Cardiac monitoring; Complete Time: 15:53 01/02 15:28 Order name: EKG - Nurse/Tech; Complete Time: 15:53 01/02 15:28 Order name: IV Saline Lock; Complete Time: 15:53 01/02 15:28 Order name: Labs collected and sent; Complete Time: 15:53 01/02 15:28 Order name: O2 Per Protocol; Complete Time: 15:53 01/02 15:28 Order name: O2 Sat Monitoring; Complete Time: 15:53 Administered Medications: 16:59 Drug: DiFLUcan 150 mg Route: PO; jl7 17:05 Follow up: Response: Medication administered at discharge. jl7 Disposition: 01/03 14:54 Co-signature as Attending Physician, Jatin Higuera MD I agree with the assessment and kdr plan of care. Disposition: 01/03/20 16:48 Discharged to Home. Impression: Chest pain, unspecified, Hypertrophic disorder of the skin, unspecified, Vaginitis, vulvitis and vulvovaginitis in diseases classified elsewhere. - Condition is Stable. - Discharge Instructions: Nonspecific Chest Pain, Vaginitis. - Medication Reconciliation Form, Thank You Letter, Antibiotic Education, Prescription Opioid Use, Work release form form. - Follow up: Private Physician; When: 2 - 3 days; Reason: Recheck today's complaints, Continuance of care, Re-evaluation by your physician. - Problem is new. - Symptoms have improved. Signatures: Dispatcher [employer] EDNY Jatin Higeura MD MD [facility] Edie Crowell RN RN Jj Aquino PA PA jr8 Juani Toro RN RN jl7 Corrections: (The following items were deleted from the chart) 01/02 17:07 16:48 01/03/2020 16:48 Discharged to Home. Impression: Chest pain, unspecified; jl7 Hypertrophic disorder of the skin, unspecified; Vaginitis, vulvitis and vulvovaginitis in diseases classified elsewhere. Condition is Stable. Forms are Medication Reconciliation Form, Thank You Letter, Antibiotic Education, Prescription Opioid Use. Follow up: Private Physician; When: 2 - 3 days; Reason: Recheck today's complaints, Continuance of care, Re-evaluation by your physician. Problem is new. Symptoms have improved. jr8
--- NOTE | 2020-01-03 16:49 | ER ---
Nurse's Notes [facility] Name: Sena Wu Age: 54 yrs Sex: Female : 1965 Arrival Date: 01/03/2020 Time: 13:42 Bed 20 Private MD: Diagnosis: Chest pain, unspecified;Hypertrophic disorder of the skin, unspecified;Vaginitis, vulvitis and vulvovaginitis in diseases classified elsewhere Presentation: 01/02 13:44 Chief complaint: Chief complaint: Patient states: Rash to pelvic area x 2 weeks. Pt ss states, "It might be staph." "Oh, and i've also been having chest pains off and on since Tuesday.". 13:46 Coronavirus screen: Proceed with normal triage. Patient denies a cough. Patient denies ss shortness of breath or difficulty breathing. Patient denies measured and/or subjective temperature greater than 100.4F prior to today's visit. Patient denies travel on a cruise ship or to a country the [facility] currently lists as an affected area. Patient denies contact with known and/or suspected case of COVID-19. Ebola Screen: Patient denies exposure to infectious person. Patient denies travel to an Ebola-affected area in the 21 days before illness onset. Initial Sepsis Screen: Does the patient meet any 2 criteria? No. Patient's initial sepsis screen is negative. Does the patient have a suspected source of infection? Yes: Skin breakdown/wound. Risk Assessment: Do you want to hurt yourself or someone else? Patient reports no desire to harm self or others. 13:46 Method Of Arrival: Wheelchair ss 13:46 Acuity: DREW 3 ss Historical: - Allergies: 13:48 ACETAMINOPHEN; ss 13:48 Codeine; ss 13:48 tramadol; ss 13:48 diphenhydramine HCl; ss - Home Meds: 13:48 Flexeril 5 mg Oral tab 1 tab twice a day [Active]; lisinopril 20 mg oral tab 1 tab once ss daily [Active]; - PMHx: 13:48 Arthritis; COPD; Depression; Hypertension; Obesity; ss - PSHx: 13:48 Tonsillectomy; ss - Immunization history:: Adult Immunizations up to date. - Social history:: Smoking status: Patient denies any tobacco usage or history of. Screenin:00 Abuse screen: Denies threats or abuse. Denies injuries from another. Nutritional jl7 screening: No deficits noted. Tuberculosis screening: No symptoms or risk factors identified. Fall Risk IV access (20 points). Total Mattson Fall Scale indicates No Risk (0-24 pts). Assessment: 15:54 General: Appears in no apparent distress. uncomfortable, Behavior is calm, cooperative, jl7 appropriate for age. Pain: Complains of pain in anterior aspect of right upper chest Pain does not radiate. Pain currently is 5 out of 10 on a pain scale. Pain began x4 days Is continuous. Neuro: Level of Consciousness is awake, alert, obeys commands, Oriented to person, place, time, situation. Cardiovascular: Patient's skin is warm and dry. Respiratory: Airway is patent Respiratory effort is even, unlabored, Respiratory pattern is regular, symmetrical. Derm: Skin is pink, warm \\T\\ dry. Vital Signs: 13:44 BP 134 / 90; Pulse 78; Resp 18; Temp 97.4(TE); Pulse Ox 98% on R/A; Weight 176.9 kg; ss Height 5 ft. 1 in. (154.94 cm); Pain 5/10; 16:45 BP 115 / 73; Pulse 75; Resp 16; Pulse Ox 100% ; jl7 13:44 Body Mass Index 73.69 (176.90 kg, 154.94 cm) ED Course: 13:42 Patient arrived in ED. ag5 13:48 Triage completed. ss 13:48 Arm band placed on left wrist. 15:00 [facility] 15:00 Jatin Higuera MD is Attending Physician. jr8 15:00 Patient has correct armband on for positive identification. Placed in gown. Bed in low jl7 position. Call light in reach. Side rails up X2. nuclear monitoring technician on. Pulse ox on. NIBP on. Warm blanket given. 15:00 No provider procedures requiring assistance completed. jl7 15:09 Juani Toro, JADA is Primary Nurse. jl7 15:30 Initial lab(s) drawn, by al, sent to lab. EKG done, by ED staff, reviewed by Jj CARRANZA. Inserted saline lock: 22 gauge in right hand, using aseptic technique. Blood collected. Patient maintains SpO2 saturation greater than 95% on room air. 16:07 XRAY Chest (1 view) In Process Unspecified. EDMS 17:07 IV discontinued, intact, bleeding controlled, No redness/swelling at site. Pressure jl7 dressing applied. Administered Medications: 16:59 Drug: DiFLUcan 150 mg Route: PO; jl7 17:05 Follow up: Response: Medication administered at discharge. jl7 Outcome: 16:48 Discharge ordered by MD. eliel 17:07 Discharged to home ambulatory. jl7 17:07 Condition: stable 17:07 Discharge instructions given to patient, Instructed on discharge instructions, follow up and referral plans. medication usage, Demonstrated understanding of instructions, follow-up care, medications, Prescriptions given X 1. 17:07 Patient left the ED. jl7 Signatures: Dispatcher [employer] EDMS Edie Crowell RN RN ss Jj Coleman PA PA jr8 Leal, Jahala, RN RN jl7 Clau Ramirez ag5 Corrections: (The following items were deleted from the chart) 13:48 13:44 Chief complaint: Patient states: Rash to pelvic area x 2 weeks. Pt states, "It ss might be staph." Chief complaint: Patient states: Rash to pelvic area x 2 weeks. Pt states, "It might be staph." ss
[2020-01-03] MEDS ORDERED: FLUCONAZOLE 100 MG TAB ONE (16:58)
== END 2020-01-03 17:07 | disposition home or self-care (01) ==
LOC: ER 13:39
DX: L91.9 Hypertrophic disorder of the skin, unspecified (principal); N77.1 Vaginitis, vulvitis and vulvovaginitis in diseases classified elsewhere; R07.9 Chest pain, unspecified; I10 Essential (primary) hypertension; Z88.5 Allergy status to narcotic agent; Z88.6 Allergy status to analgesic agent; Z88.8 Allergy status to other drugs, medicaments and biological substances
CPT/HCPCS: 36415; 71045; 80048; 80076; 83735; 83880; 84484; 85025; 85610; 99285

== ENCOUNTER 2023-11-06 09:42 | Observation (INO) | payer OTHER ==
--- OUTSIDE RECORDS SUMMARY | 2023-11-06 09:47 | XMS REPORT | Continuity of Care Document ---
Author Name Unknown Address [address] [place] [address] [facility] thconnect Address [address] [place] [address] Care Team Providers Care Adjunct Communications Faculty Member Name Role Phone PCP, PATIENT DOES NOT HAVE A Primary Care Physic royce Unavailable Alfred Escobedo Attending Clinician Unavailable SOFÍA WEIR Attending Clinician Unavailable Nickolas Gutierrez Attending Clinician [phone] NICKOLAS SANDOVAL Attending Clinician Unavailable Alfred Escobedo Admitting Clinician Unavailable NICKOLAS SANDOVAL Admitting Clinician Unavailable Physician, No Primary or Family Admitting Clinic royec Unavailable Payers Payer Name Policy Type Policy Number Effective Date Expirati on Date Source MEDICAID SSI PENDING PENDING 2021 00:00:00 Problems Condition Name Condition Details Condition Category Status Onset Date Resolution Date Last Treatment Date Treating Clinician Comments Source Other general counseling and advice for contracept alvaro management Other general counseling and advice for contracept alvaro management Disease Active 2015-07 00:00: 00 [facility] Knee pain, bilateral Knee pain, bilateral Disease Active 2015-07 00:00: 00 [facility] BV (bacterial vaginosis) BV (bacterial vaginosis) Disease Active 2015-07 00:00: 00 [facility] Yeast infection of the skin Yeast infection of the skin Disease Active 2015-07 0-17 00:00: 00 [facility] Chest pain Chest pain Disease Active 830 00:00: 00 [facility] Essential hypertensi on Essential hypertensi on Disease Active 12-28 00:00: 00 Overview: Formattin g of this note might be different from the original. 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 Utility [facility] Irregular menstrual cycle Irregular menstrual cycle Disease Active 12-28 00:00: 00 [facility] Morbid obesity Morbid obesity Disease Active 11-16 00:00: 00 [facility] Allergies, Adverse Reactions, Alerts Allergy Name Allergy Type Status Severity Reaction(s) Onset Date Inactive Date Treating Clinician Comments Source MORPHINE DRUG INGREDI Active Hallucinates 2021-0 3-27 00:00: 00 [facility] Morphine Propensi ty to adverse reaction s Active Hallucinatio ns 2021-0 3-27 00:00: 00 [facility] diphenhy dramine DA Active U HALLUCINATIO NS 2020-0 6-14 00:00: 00 [facility] diphenhy dramine DA Active U 2020-0 6-14 00:00: 00 [facility] acetamin ophen DA Active MO 2020-0 6-12 00:00: 00 [facility] tramadol DA Active MO 2020-0 6-12 00:00: 00 [facility] morphine DA Active MO HIVES 2020-0 6-12 00:00: 00 [facility] codeine DA Active MO ITCHING 2020-0 6-12 00:00: 00 [facility] acetamin ophen DA Active MO HIVES 2020-0 6-12 00:00: 00 [facility] tramadol DA Active MO HIVES 2020-0 6-12 00:00: 00 [facility] morphine DA Active MO 12-27 00:00: 00 [facility] codeine DA Active MO 12-27 00:00: 00 [facility] Acetamin ophen Propensi ty to adverse reaction s Active Itching 12-18 00:00: 00 [facility] Tramadol Propensi ty to adverse reaction s Active Nausea and/or Vomiting 12-18 00:00: 00 [facility] ACETAMIN OPHEN DRUG INGREDI Active ITCHING 12-18 00:00: 00 [facility] TRAMADOL DRUG INGREDI Active N/V 12-18 00:00: 00 [facility] Diphenhy dramine Hcl Propensi ty to adverse reaction s Active Hallucinatio ns 11-16 00:00: 00 [facility] DIPHENHY DRAMINE HCL DRUG INGREDI Active Hallucinates 11-16 00:00: 00 [facility] Codeine Propensi ty to adverse reaction s Active Unknown - See comments 03-15 00:00: 00 [facility] CODEINE DRUG INGREDI Active Unknown-Cmnt 03-15 00:00: 00 [facility] Social History Social Habit Start Date Stop Date Quantity Comments Source Exposure to SARS-CoV-2 (event) Not sure [facility] Alcohol intake 2021-10-11 00:00:00 2021-10-11 00:00:00 0 /d [facility] Tobacco use and exposure 2012-11-16 00:00:00 2012-11-16 00:00:00 Never used [facility] Sex Assigned At 1965 00:00:00 1965 00:00:00 [facility] Smoking Status Start Date Stop Date Source Never smoker [facility] Medications Ordered Medication Name Filled Medication Name Start Date Stop Date Current Medication? Ordering Clinician Indication Dosage Frequency Signature (SIG) Comments Components Source ketorolac (TORADOL) injection 30 mg 10-12 05:45: 00 10-12 04:44 :00 No 30mg 30 mg, Slow IV Push, ONCE, 1 dose, On 10/12/21 at 0045, ALEXIS [facility] aspirin tablet 325 mg 10-12 04:30: 00 10-12 03:46 :00 No 325mg 325 mg, Oral, ONCE, 1 dose, On 10/11/21 at 2330, ALEXIS [facility] clotrimazol e (LOTRIMIN) 1 % topical cream 2015-07 00:00: 00 Yes [id number] Apply to area(s) at bedtime. [facility] metroNIDAZO LE (FLAGYL) 500 mg tablet 2015-07 00:00: 00 Yes [id number] 500mg Take 1 tablet by mouth 2 (two) times daily. [facility] aspirin 81 mg chewable tablet 03-18 00:00: 00 Yes 81mg Take 1 tablet by mouth daily. [facility] metoprolol tartrate (LOPRESSOR) 25 mg tablet 03-18 00:00: 00 Yes 12.5mg Take 0.5 tablets by mouth 2 (two) times daily. [facility] ibuprofen (ADVIL) 200 mg tablet 03-18 00:00: 00 Yes 200mg Take 1 tablet by mouth every 6 (six) hours as needed for Pain (scale 1-3). [facility] nystatin (PEDI-DRI) 100,000 unit/gram powder 03-18 00:00: 00 Yes Apply to area(s) 2 (two) times daily. [facility] Vital Signs Vital Name Observation Time Observation Value Comments S izabel Systolic blood pressure 2021-10-12 07:05:00 113 mm[Hg] [facility] Diastolic blood pressure 2021-10-12 07:05:00 70 mm[Hg] [facility] Heart rate 2021-10-12 07:05:00 80 /min [facility] Respiratory rate 2021-10-12 07:05:00 22 /min [facility] Oxygen saturation in Arterial blood by Pulse oximetry 2021-10-12 07:05:00 97 /min [facility] Body temperature 2021-10-12 03:29:00 36 Cielo [facility] Body height 2021-10-12 03:29:00 154.9 cm [facility] Body weight 2021-10-12 03:29:00 171.46 kg [facility] BMI 2021-10-12 03:29:00 71.42 kg/m2 [facility] Procedures Procedure Date / Time Performed Performing Clinician Source EKG-12 LEAD 2021-10-12 07:00:52 Nickolas Sandoval [facility] TROPONIN I 2021-10-12 06:23:00 Nickolas Sandoval [facility] URINALYSIS 2021-10-12 03:52:00 Nickolas Sandoval [facility] TROPONIN I 2021-10-12 03:45:00 Nickolas Sandoval [facility] COMP. METABOLIC PANEL ([id number]) 2021-10-12 03:45:00 Nickolas Sandoval [facility] CBC WITH DIFF 2021-10-12 03:45:00 Nickolas Sandoval [facility] PROTHROMBIN TIME / INR 2021-10-12 03:45:00 Lilian Sandoval [facility] N-TERMINAL PRO-BNP 2021-10-12 03:45:00 Mckenna Sandoval [facility] XR CHEST 1 VW 2021-10-12 03:40:55 Nickolas Sandoval [facility] NOTICE OF PRIVACY PRACTICES 2021-10-12 03:17:52 Doctor Unassigned, [place] [facility] CONSENT/REFUSAL FOR DIAGNOSIS AND TREATMENT 2021-10-12 03:17:36 Doctor Unassigned, [place] [facility] [id number] 2020-12-29 00:00:00 BOKSY.01 [facility] [id number] 2020-12-29 00:00:00 BOKSY.01 [facility] Encounters Start Date/Time End Date/Time Encounter Type Admission Type Attending Clinicians Care Facility Care Department Encounter ID Source 2020-12-27 18:02:00 Inpatient EM Alfred Escobedo HCAPM [id number] [facility] 2023-08-24 13:45:48 2023-08-24 13:45:[address] [facility] [id number] 2023-06-22 10:45:44 2023-06-22 10:45:[address] [facility] [id number] Kendrick Kobe 2023-06-20 09:42:48 2023-06-20 09:42:48 Outpatient [facility] [id number] Jord[address] Kendrick Kobe 2022-12-22 08:45:06 2022-12-22 08:45:[address] [facility] [id number] Jord[address] Kendrick Kobe 2022-01-11 10:00:00 2022-01-11 10:00:00 Outpatient Christoph CARMELLA [facility] [id number] [facility] 2021-11-17 15:00:00 2021-11-17 15:00:00 Outpatient Christoph CARMELLA [facility] [id number] [facility] 2021-11-17 15:00:00 2021-11-17 15:00:00 Outpatient Christoph CARMELLA [facility] [id number] [facility] 2021-10-11 22:31:00 2021-10-12 02:22:00 Emergency Nickolas Sandoval [facility] [id number] [facility] 2021-10-11 22:31:00 2021-10-12 02:22:00 Emergency X NICKOLAS SANDOVAL [facility] ERT [id number] [facility] 2020-12-27 21:42:00 2020-12-27 21:42:00 Outpatient Alfred Escobedo [facility] LABO [id number] [facility] Results Test Description Test Time Test Comments Results Result Co mments Source [facility] [id number] 04:23:15* Test Item Value Reference Range Interpretation Comments TROPONIN I (test code = 3849634706) 0.002 ng/mL See_Comment [Automated message] The system which generated this result transmitted reference range: <=0.034. The reference range was not used to interpret this result as normal/abnormal. JOSE (test code = JOSE) Reference (Normal) Range (defined by the 99th percentile reference limit): <= 0.034 ng/mL Note: Cardiac troponin begins to rise 3-4 hours after the onset of ischemia. Repeat in 4-6 hours if the sample was drawn within 3-4 hours of the onset of the symptom and found normal. Diagnosis of myocardial injury is made with acute changes in cTn concentrations with at least one serial sample above the 99th percentile upper reference limit (URL), taken together with the patient's clinical presentation. Biotin has been reported to cause a negative bias, interpret results relative to patient's use of biotin. Lab Interpretation (test code = 19663-7) [facility] [id number] 04:20:14* Test Item Value Reference Range Interpretation Comme nts NT-proBNP (test code = 7531857566) 123 pg/mL See_Comment [Automated message] The system which generated this result transmitted reference range: <=125. The reference range was not used to interpret this result as normal/abnormal. JOSE (test code = JOSE) Biotin has been reported to cause a negative bias, interpret results relative to patient's use of biotin. Lab Interpretation (test code = 77200-4) [facility]OL[facility] PAN[facility] (82640)2021-10-12 04:11:13* Test Item Value Reference Range Interpretation Comme nts NA (test code = 8420457475) 138 mmol/L 135-145 K (test code = 0944649153) 4.5 mmol/L 3.5-5.0 CL (test code = 1869676509) 102 mmol/L 98-108 CO2 TOTAL (test code = 3269382979) 26 mmol/L 23-31 AGAP (test code = 1841989748) 2-16 BUN (test code = 1389440287) 10 mg/dL 7-23 GLUCOSE (test code = 3663576712) 132 mg/dL 70-110 H CREATININE (test code = 1894685639) 0.67 mg/dL 0.50-1.04 TOTAL BILI (test code = 2080572657) 1.1 mg/dL 0.1-1.1 CALCIUM (test code = 3809879780) 9.1 mg/dL 8.6-10.6 T PROTEIN (test code = 8190554902) 6.8 g/dL 6.3-8.2 ALBUMIN (test code = 6724152784) 4.0 g/dL 3.5-5.0 ALK PHOS (test code = 2254641804) 82 U/L 34-122 ALTv (test code = 1742-6) 18 U/L 5-35 AST(SGOT) (test code = 2850288561) 26 U/L 13-40 eGFR (test code = 8331325290) mL/min/1.73m2 JOSE (test code = JOSE) Association of Glomerular Filtration Rate (GFR) and Staging of Kidney Disease* + --+ --+ ------+| GFR (mL/min/1.73 m2) ?| With Kidney Damage ?| ?Without Kidney Damage+ --------+ --------+ +| ?>90 ?| ?Stage one ?| ? Normal ?+ ---+ ---+ -------+| ?60-89 ?| ?Stage two ?| ? Decreased GFR ? + --+ --+ ------+| ?30-59 ?| ?Stage three ?| ? Stage three ? + --+ --+ ------+| ?15-29 ?| ?Stage four ? | ? Stage four ?+ ---+ ---+ -------+| ?<15 (or dialysis) ? ?| ?Stage five ? | ? Stage five ?+ ---+ ---+ -------+ *Each stage assumes the associated GFR level has been in effect for at least three months. ?Stages 1 to 5, with or without kidney disease, indicate chronic kidney disease. Notes: Determination of stages one and two (with eGFR >59mL/min/1.73 m2) requires estimation of kidney damage for at least three months as defined by structural or functional abnormalities of the kidney, manifested by either:Pathological abnormalities or Markers of kidney damage (including abnormalities in the composition of the blood or urine or abnormalities in imaging tests). Lab Interpretation (test code = 80346-9) [facility]normal [facility] / [id number] 04:08:33* Test Item Value Reference Range Interpretation Comme nts PROTIME PATIENT (test code = 5964-2) See_Comment [Automated messa ge] The system which generated this result transmitted reference range: 12.0 - 14.7 Seconds. The reference range was not used to interpret this result as normal/abnormal. INR (test code = 6301-6) Normal INR <1.1; Warfarin Therapeutic range 2.0 to 3.0 or 2.5 to 3.5, depending upon the indications. Lab Interpretation (test code = 65924-4) [facility] [id number] 04:00:16* Test Item Value Reference Range Interpretation Comme nts WBC (test code = 6690-2) See_Comment [Automated messa ge] The system which generated this result transmitted reference range: 4.30 - 11.10 10*3/?L. The reference range was not used to interpret this result as normal/abnormal. RBC (test code = 789-8) See_Comment [Automated messa ge] The system which generated this result transmitted reference range: 3.93 - 5.25 10*6/?L. The reference range was not used to interpret this result as normal/abnormal. HGB (test code = 718-7) 14.0 g/dL 11.6-15.0 HCT (test code = 4544-3) 42.9 % 35.7-45.2 MCV (test code = 787-2) 87.9 fL 80.6-95.5 MCH (test code = 785-6) 28.7 pg 25.9-32.8 MCHC (test code = 786-4) 32.6 g/dL 31.6-35.1 RDW-SD (test code = 33437-1) 41.4 fL 39.0-49.9 RDW-CV (test code = 788-0) 12.9 % 12.0-15.5 PLT (test code = 777-3) See_Comment [Automated messa ge] The system which generated this result transmitted reference range: 166 - 358 10*3/?L. The reference range was not used to interpret this result as normal/abnormal. MPV (test code = 77650-6) 10.0 fL 9.5-12.9 NRBC/100 WBC (test code = 3266002728) See_Comment [Automated me ssage] The system which generated this result transmitted reference range: 0.0 - 10.0 /100 WBCs. The reference range was not used to interpret this result as normal/abnormal. NRBC x10^3 (test code = 8966539994) <0.01 See_Comment [Automated me ssage] The system which generated this result transmitted reference range: 10*3/?L. The reference range was not used to interpret this result as normal/abnormal. GRAN MAT (NEUT) % (test code = 770-8) 68.8 % IMM GRAN % (test code = 9723949596) 0.60 % LYMPH % (test code = 736-9) 22.1 % MONO % (test code = 5905-5) 4.7 % EOS % (test code = 713-8) 3.4 % BASO % (test code = 706-2) 0.4 % GRAN MAT x10^3(ANC) (test code = 1218263885) 6.18 10*3/uL 1.88-7.09 IMM GRAN x10^3 (test code = 3898005814) 0.05 10*3/uL 0.00-0.06 LYMPH x10^3 (test code = 731-0) 1.99 10*3/uL 1.32-3.29 MONO x10^3 (test code = 742-7) 0.42 10*3/uL 0.33-0.92 EOS x10^3 (test code = 711-2) 0.31 10*3/uL 0.03-0.39 BASO x10^3 (test code = 704-7) 0.04 10*3/uL 0.01-0.07 [facility] [id number] 15:30:00* Test Item Value Reference Range Interpretation Comme [facility] GLUCOSE BEDSIDE TESTING (radha t code = GLUBED) 202 mg/dL 70-110 H HEPARIN IND [id number] 15:12:00* Test Item Value Reference Range Interpretation Comme nts HEPARIN IND THROMBOCYTOPENIA (test code = HIT (PF4 GEM)) 0.205 OD 0.000-0.400 Performe d At: [facility] [id number] Damon MD Ph:[phone] ANTINUCLEAR ANTIBODIES [id number] 13:12:00* Test Item Value Reference Range Interpretation Comme nts XU TITER (test code = ANATITR) Negative See_Comment Negative <1:80 B orderline 1:80 Positive >1:80Performed At: [facility] [id number] Kyle L MD Ph:[phone] [Automated message] The system which generated this result transmitted reference range: (). The reference range was not used to interpret this result as normal/abnormal. GLUCOSE BEDSIDE [id number] 11:51:00* Test Item Value Reference Range Interpretation Comme nts GLUCOSE BEDSIDE TESTING (radha t code = GLUBED) 166 mg/dL 70-110 H GLUCOSE BEDSIDE [id number] 07:39:00* Test Item Value Reference Range Interpretation Comme nts GLUCOSE BEDSIDE TESTING (radha t code = GLUBED) 134 mg/dL 70-110 H [id number] 06:11:00* Test Item Value Reference Range Interpretation Comme nts HAPTOGLOBIN (test code = HAPT) 288 mg/dL 33-346 Performed At: [facility] [id number] Damon MD Ph:[phone] GLUCOSE BEDSIDE [id number] 20:39:00* Test Item Value Reference Range Interpretation Comme nts GLUCOSE BEDSIDE TESTING (radha t code = GLUBED) 298 mg/dL 70-110 H GLUCOSE BEDSIDE [id number] 16:37:00* Test Item Value Reference Range Interpretation Comme nts GLUCOSE BEDSIDE TESTING (radha t code = GLUBED) 207 mg/dL 70-110 H CBC W/AUTO [id number] 13:26:00* Test Item Value Reference Range Interpretation Comme nts WHITE BLOOD CELL (test code = WBC) 11.6 K/mm3 3.5-11.0 H RED BLOOD CELL (test code = RBC) 5.92 M/mm3 4.70-6.10 N HEMOGLOBIN (test code = HGB) 15.8 G/DL 10.4-14.9 H HEMATOCRIT (test code = HCT) 52.3 % 31.5-44.1 H MEAN CELL VOLUME (test code = MCV) 88.3 Fl 84.5-98.6 N MEAN CELL HGB (test code = MCH) 26.7 pg 27.0-34.2 L MEAN CELL HGB CONCETRATION (test code = MCHC) 30.2 G/DL 31.5-34.0 L RED CELL DISTRIBUTION WIDTH (test code = RDW) 14.6 SD 11.5-14.5 H PLATELET COUNT (test code = PLT) TEST NOT PERFORMED K/mm3 150-450 NO BLUE TOP RECEIVED, FLOOR NOTIFIED, BLUE TOP REQUESTED,PATIENT IS A KNOWN EDTA CLUMPER MEAN PLATELET VOLUME (test code = MPV) TEST NOT PERFORMED fL 7.0-10.5 NEUTROPHIL % (test code = NT%) 81.0 % 40-76 H IMMATURE GRANULOCYTE % (test code = IG%) 6.1 % 0.0-5.0 H LYMPHOCYTE % (test code = LY%) 8.4 % 20.5-51.1 L MONOCYTE % (test code = MO%) 4.3 % 1.7-9.3 N EOSINOPHIL % (test code = EO%) 0.0 % 0.0-6.0 N BASOPHIL % (test code = BA%) 0.2 % 0.0-2.0 N NUCLEATED RBC % (test code = NRBC%) 0.0 /100WBC% 0.0-1.0 N NEUTROPHIL # (test code = NT#) 9.4 K/mm3 1.8-7.6 H IMMATURE GRANULOCYTE # (test code = IG#) 0.71 x10 3/uL 0.00-0.03 H LYMPHOCYTE # (test code = LY#) 1.0 K/mm3 0.6-3.2 N MONOCYTE # (test code = MO#) 0.5 K/mm3 0.3-1.1 N EOSINOPHIL # (test code = EO#) 0.0 K/mm3 0.0-0.4 N BASOPHIL # (test code = BA#) 0.0 K/mm3 0.0-0.1 N NUCLEATED RBC # (test code = NRBC#) 0.0 K/mm3 0.0-0.1 N MANUAL DIFF REQUIRED (test code = MDIFF) NO DIFF/SCN CRITERIA SLIDE REVIEW CONSISTANT WITH AUTO DIFFERENTIAL. GLUCOSE BEDSIDE [id number] 12:17:00* Test Item Value Reference Range Interpretation Comme nts GLUCOSE BEDSIDE TESTING (radha t code = GLUBED) 188 mg/dL 70-110 H - XR CHEST 1 [id number] 11:32:00 [facility] 1965 Sex: F Name: LORI DELUCA [facility] : 1965 Age/S: 55 / F [address] Unit #: [id number] Loc: [place] [address] Phys: Sergio Love Acct: [id number] Dis Date: Status: ADM IN PHONE #: [phone] Exam Date: 01/05/2021 1056 FAX #: Reason: COVID EXAMS: CPT: [id number] XR CHEST1 V 15827 Fluoro Time: DAP (Gy m2): Air Kerma (mGy): - XR CHEST 1 V CLINICAL INFORMATION: COVID pneumonia COMPARISONS: January 01, 2021 FINDINGS: The lungs are slightly underexpanded. Diffuse interstitial and patchy alveolar opacities in the lungs show moderate improvement from the comparison study. No pneumothorax or pleural effusion is present. The cardiac silhouette remains mildly enlarged. The bones are intact. IMPRESSION: Improved appearance of diffuse mixed pulmonary opacities. Location: R16 at 1132 Reported and signed by: Anuel Sandoval M.D. CC: Alfred Escobedo MD; Sergio Love PAGE 1 Signed Report Name: LORI DELUCA : 1965 Age/S: 55 / F [address] [address] Unit #: [id number] Loc: [place] [address] Phys: IvanAshleighlora LOVE Acct: [id number] Dis Date: Status: ADM IN PHONE #: [phone] Exam Date: 01/05/2021 1056 FAX #: Reason: COVID EXAMS: CPT: [id number] XR CHEST 1 V 49525 Fluoro Time: DAP (Gy m2): Air Kerma (mGy): (Continued) Technologist: Maribel Mariee, RT(R) Trnscb Date/Time: 01/05/2021 (113) [id number] Orig Print D/T: S: 01/05/2021 (5432) PAGE 2 Signed ReportPLATELET [id number] 10:25:00* Test Item Value Reference Range Interpretation Comme nts PLATELET COUNT (test code = PLT) 271 K/mm3 150-450 N This platelet co unt was done on citrated blood from a bluetop tube due to platelet clumping phenomena in EDTA anti-coagulant and has been corrected for the dilution factor. C REACTIVE [id number] 07:36:00* Test Item Value Reference Range Interpretation Comme nts C REACTIVE PROTEIN (test cod e = CRP) < 0.290 MG/DL 0.000-0.3 N GLUCOSE BEDSIDE [id number] 07:31:00* Test Item Value Reference Range Interpretation Comme nts GLUCOSE BEDSIDE TESTING (radha t code = GLUBED) 168 mg/dL 70-110 H CBC W/AUTO [id number] 07:20:00* Test Item Value Reference Range Interpretation Comme nts WHITE BLOOD CELL (test code = WBC) 11.6 K/mm3 3.5-11.0 H RED BLOOD CELL (test code = RBC) 5.92 M/mm3 4.70-6.10 N HEMOGLOBIN (test code = HGB) 15.8 G/DL 10.4-14.9 H HEMATOCRIT (test code = HCT) 52.3 % 31.5-44.1 H MEAN CELL VOLUME (test code = MCV) 88.3 Fl 84.5-98.6 N MEAN CELL HGB (test code = MCH) 26.7 pg 27.0-34.2 L MEAN CELL HGB CONCETRATION ( test code = MCHC) 30.2 G/DL 31.5-34.0 L RED CELL DISTRIBUTION WIDTH (test code = RDW) SD 11.5-14.5 H PLATELET COUNT (test code = PLT) K/mm3 150-450 MEAN PLATELET VOLUME (test c ode = MPV) fL 7.0-10.5 NEUTROPHIL % (test code = NT%) % 40-76 H IMMATURE GRANULOCYTE % (test code = IG%) % 0.0-5.0 H LYMPHOCYTE % (test code = LY%) % 20.5-51.1 L MONOCYTE % (test code = MO%) % 1.7-9.3 N EOSINOPHIL % (test code = EO%) % 0.0-6.0 N BASOPHIL % (test code = BA%) % 0.0-2.0 N NUCLEATED RBC % (test code = NRBC%) /100WBC% 0.0-1.0 N NEUTROPHIL # (test code = NT#) K/mm3 1.8-7.6 H IMMATURE GRANULOCYTE # (test code = IG#) x10 3/uL 0.00-0.03 H LYMPHOCYTE # (test code = LY#) K/mm3 0.6-3.2 N MONOCYTE # (test code = MO#) K/mm3 0.3-1.1 N EOSINOPHIL # (test code = EO#) K/mm3 0.0-0.4 N BASOPHIL # (test code = BA#) K/mm3 0.0-0.1 N NUCLEATED RBC # (test code = NRBC#) K/mm3 0.0-0.1 N MANUAL DIFF REQUIRED (test c ode = MDIFF) DIFF/SCN CRITERIA GLUCOSE BEDSIDE [id number] 21:11:00* Test Item Value Reference Range Interpretation Comme nts GLUCOSE BEDSIDE TESTING (radha t code = GLUBED) 287 mg/dL 70-110 H GLUCOSE BEDSIDE [id number] 17:36:00* Test Item Value Reference Range Interpretation Comme nts GLUCOSE BEDSIDE TESTING (radha t code = GLUBED) 243 mg/dL 70-110 H LACTIC DEHYDROGENASE(LDH)2021-01-04 16:54:00* Test Item Value Reference Range Interpretation Comme nts LACTIC DEHYDROGENASE(LDH) (t est code = LDH) 437 Unit/L 84-246 H VITAMIN [id number] 16:54:00* Test Item Value Reference Range Interpretation Comme nts VITAMIN B12 (test code = VITB12) 3766 PG/ML 183-986 H FOLIC [id number] 16:54:00* Test Item Value Reference Range Interpretation Comme nts FOLIC ACID (test code = FOL) 6.60 NG/ML 3.10-17.50 N THYROID STIMULATING [id number] 16:54:00* Test Item Value Reference Range Interpretation Comme nts THYROID STIMULATING HORMONE (test code = TSH) 1.460 mcIU/ML 0.340-4.820 N CBC W/AUTO [id number] 15:48:00* Test Item Value Reference Range Interpretation Comme nts WHITE BLOOD CELL (test code = WBC) 12.2 K/mm3 3.5-11.0 H RED BLOOD CELL (test code = RBC) 6.00 M/mm3 4.70-6.10 N HEMOGLOBIN (test code = HGB) 15.9 G/DL 10.4-14.9 H HEMATOCRIT (test code = HCT) 53.1 % 31.5-44.1 H MEAN CELL VOLUME (test code = MCV) 88.5 Fl 84.5-98.6 N MEAN CELL HGB (test code = MCH) 26.5 pg 27.0-34.2 L MEAN CELL HGB CONCETRATION (test code = MCHC) 29.9 G/DL 31.5-34.0 L RED CELL DISTRIBUTION WIDTH (test code = RDW) 14.5 SD 11.5-14.5 N PLATELET COUNT (test code = PLT) 173 K/mm3 150-450 N MEAN PLATELET VOLUME (test c ode = MPV) 11.10 fL 7.0-10.5 H NEUTROPHIL % (test code = NT%) 79.2 % 40-76 H IMMATURE GRANULOCYTE % (test code = IG%) 5.1 % 0.0-5.0 H LYMPHOCYTE % (test code = LY%) 11.0 % 20.5-51.1 L MONOCYTE % (test code = MO%) 4.5 % 1.7-9.3 N EOSINOPHIL % (test code = EO%) 0.0 % 0.0-6.0 N BASOPHIL % (test code = BA%) 0.2 % 0.0-2.0 N NUCLEATED RBC % (test code = NRBC%) 0.2 /100WBC% 0.0-1.0 N NEUTROPHIL # (test code = NT#) 9.6 K/mm3 1.8-7.6 H IMMATURE GRANULOCYTE # (test code = IG#) 0.62 x10 3/uL 0.00-0.03 H LYMPHOCYTE # (test code = LY#) 1.3 K/mm3 0.6-3.2 N MONOCYTE # (test code = MO#) 0.6 K/mm3 0.3-1.1 N EOSINOPHIL # (test code = EO#) 0.0 K/mm3 0.0-0.4 N BASOPHIL # (test code = BA#) 0.0 K/mm3 0.0-0.1 N NUCLEATED RBC # (test code = NRBC#) 0.0 K/mm3 0.0-0.1 N LACTIC DEHYDROGENASE(LDH)[id number] 13:29:00* Test Item Value Reference Range Interpretation Comme nts LACTIC DEHYDROGENASE(LDH) (t est code = LDH) 437 Unit/L 84-246 H VITAMIN [id number] 13:29:00* Test Item Value Reference Range Interpretation Comme nts VITAMIN B12 (test code = VITB12) PG/ML 183-986 FOLIC [id number] 13:29:00* Test Item Value Reference Range Interpretation Comme nts FOLIC ACID (test code = FOL) NG/ML 3.10-17.50 THYROID STIMULATING [id number] 13:29:00* Test Item Value Reference Range Interpretation Comme nts THYROID STIMULATING HORMONE (test code = TSH) 1.460 mcIU/ML 0.340-4.820 N GLUCOSE BEDSIDE [id number] 12:20:00* Test Item Value Reference Range Interpretation Comme nts GLUCOSE BEDSIDE TESTING (radha t code = GLUBED) 215 mg/dL 70-110 H PROTHROMBIN [id number] 10:55:00* Test Item Value Reference Range Interpretation Comme nts PT PATIENT (test code = PTP) 11.8 SECONDS 9.3-12.9 N INTERNATIONAL NORMAL RATIO (test code = INR) 1.05 INR Unit 0.8-1.2 N THROMBOPLASTIN TIME [id number] 10:55:00* Test Item Value Reference Range Interpretation Comme nts THROMBOPLASTIN TIME PARTIAL (test code = PTT) 38.4 SECONDS 26-35 H BASIC METABOLIC [id number] 10:45:00* Test Item Value Reference Range Interpretation Comme nts SODIUM (test code = NA) 138 mmol/L 134-147 N POTASSIUM (test code = K) 4.3 mmol/L 3.4-5.0 N CHLORIDE (test code = CL) 104 mmol/L 100-108 N CARBON DIOXIDE (test code = CO2) 30 mmol/L 21-32 N ANION GAP (test code = GAP) 4.0 GAP calc 4.0-15.0 N GLUCOSE (test code = GLU) 204 MG/DL 70-110 H BLOOD UREA NITROGEN (test code = BUN) 23 MG/DL 7-18 H GLOMERULAR FILTRATION RATE (test code = GFR) >=60 max estimate estGFR >60 CREATININE (test code = CREAT) 0.6 MG/DL 0.6-1.0 N CALCIUM (test code = CA) 9.0 MG/DL 8.5-10.1 N CBC W/AUTO [id number] 10:31:00* Test Item Value Reference Range Interpretation Comme nts WHITE BLOOD CELL (test code = WBC) 12.2 K/mm3 3.5-11.0 H RED BLOOD CELL (test code = RBC) 6.00 M/mm3 4.70-6.10 N HEMOGLOBIN (test code = HGB) 15.9 G/DL 10.4-14.9 H HEMATOCRIT (test code = HCT) 53.1 % 31.5-44.1 H MEAN CELL VOLUME (test code = MCV) 88.5 Fl 84.5-98.6 N MEAN CELL HGB (test code = MCH) 26.5 pg 27.0-34.2 L MEAN CELL HGB CONCETRATION ( test code = MCHC) 29.9 G/DL 31.5-34.0 L RED CELL DISTRIBUTION WIDTH (test code = RDW) SD 11.5-14.5 N PLATELET COUNT (test code = PLT) 173 K/mm3 150-450 N MEAN PLATELET VOLUME (test c ode = MPV) fL 7.0-10.5 H NEUTROPHIL % (test code = NT%) % 40-76 H IMMATURE GRANULOCYTE % (test code = IG%) % 0.0-5.0 H LYMPHOCYTE % (test code = LY%) % 20.5-51.1 L MONOCYTE % (test code = MO%) % 1.7-9.3 N EOSINOPHIL % (test code = EO%) % 0.0-6.0 N BASOPHIL % (test code = BA%) % 0.0-2.0 N NUCLEATED RBC % (test code = NRBC%) /100WBC% 0.0-1.0 N NEUTROPHIL # (test code = NT#) K/mm3 1.8-7.6 H IMMATURE GRANULOCYTE # (test code = IG#) x10 3/uL 0.00-0.03 H LYMPHOCYTE # (test code = LY#) K/mm3 0.6-3.2 N MONOCYTE # (test code = MO#) K/mm3 0.3-1.1 N EOSINOPHIL # (test code = EO#) K/mm3 0.0-0.4 N BASOPHIL # (test code = BA#) K/mm3 0.0-0.1 N NUCLEATED RBC # (test code = NRBC#) K/mm3 0.0-0.1 N MANUAL DIFF REQUIRED (test c ode = MDIFF) DIFF/SCN CRITERIA GLUCOSE BEDSIDE [id number] 07:58:00* Test Item Value Reference Range Interpretation Comme nts GLUCOSE BEDSIDE TESTING (radha t code = GLUBED) 165 mg/dL 70-110 H CBC W/AUTO [id number] 22:15:00* Test Item Value Reference Range Interpretation Comme nts WHITE BLOOD CELL (test code = WBC) 11.2 K/mm3 3.5-11.0 H RED BLOOD CELL (test code = RBC) 5.59 M/mm3 4.70-6.10 N HEMOGLOBIN (test code = HGB) 14.9 G/DL 10.4-14.9 N HEMATOCRIT (test code = HCT) 49.2 % 31.5-44.1 H MEAN CELL VOLUME (test code = MCV) 88.0 Fl 84.5-98.6 N MEAN CELL HGB (test code = MCH) 26.7 pg 27.0-34.2 L MEAN CELL HGB CONCETRATION (test code = MCHC) 30.3 G/DL 31.5-34.0 L RED CELL DISTRIBUTION WIDTH (test code = RDW) 14.4 SD 11.5-14.5 N PLATELET COUNT (test code = PLT) 37 K/mm3 150-450 L MEAN PLATELET VOLUME (test code = MPV) 9.80 fL 7.0-10.5 N NEUTROPHIL % (test code = NT%) 82.0 % 40-76 H IMMATURE GRANULOCYTE % (test code = IG%) 4.8 % 0.0-5.0 N LYMPHOCYTE % (test code = LY%) 8.4 % 20.5-51.1 L MONOCYTE % (test code = MO%) 4.5 % 1.7-9.3 N EOSINOPHIL % (test code = EO%) 0.0 % 0.0-6.0 N BASOPHIL % (test code = BA%) 0.3 % 0.0-2.0 N NUCLEATED RBC % (test code = NRBC%) 0.2 /100WBC% 0.0-1.0 N NEUTROPHIL # (test code = NT#) 9.2 K/mm3 1.8-7.6 H IMMATURE GRANULOCYTE # (test code = IG#) 0.54 x10 3/uL 0.00-0.03 H LYMPHOCYTE # (test code = LY#) 0.9 K/mm3 0.6-3.2 N MONOCYTE # (test code = MO#) 0.5 K/mm3 0.3-1.1 N EOSINOPHIL # (test code = EO#) 0.0 K/mm3 0.0-0.4 N BASOPHIL # (test code = BA#) 0.0 K/mm3 0.0-0.1 N NUCLEATED RBC # (test code = NRBC#) 0.0 K/mm3 0.0-0.1 N MANUAL DIFF REQUIRED (test code = MDIFF) NO DIFF/SCN CRITERIA SLIDE REVIEW CONSISTANT WITH AUTO DIFFERENTIAL. RBC [id number] 22:15:00* Test Item Value Reference Range Interpretation Comme nts PLATELET ESTIMATE (test code = PLTEST) MARKEDLY DECREASED THOUSAND ADEQUATE PLATELET MORPHOLOGY (test code = PLTMORPH) CLUMPS GLUCOSE BEDSIDE [id number] 20:43:00* Test Item Value Reference Range Interpretation Comme nts GLUCOSE BEDSIDE TESTING (radha t code = GLUBED) 203 mg/dL 70-110 H GLUCOSE BEDSIDE [id number] 16:25:00* Test Item Value Reference Range Interpretation Comme nts GLUCOSE BEDSIDE TESTING (radha t code = GLUBED) 224 mg/dL 70-110 H GLUCOSE BEDSIDE [id number] 12:16:00* Test Item Value Reference Range Interpretation Comme nts GLUCOSE BEDSIDE TESTING (radha t code = GLUBED) 205 mg/dL 70-110 H GLUCOSE BEDSIDE [id number] 07:55:00* Test Item Value Reference Range Interpretation Comme nts GLUCOSE BEDSIDE TESTING (radha t code = GLUBED) 172 mg/dL 70-110 H CBC W/AUTO [id number] 07:01:00* Test Item Value Reference Range Interpretation Comme nts WHITE BLOOD CELL (test code = WBC) 11.2 K/mm3 3.5-11.0 H RED BLOOD CELL (test code = RBC) 5.59 M/mm3 4.70-6.10 N HEMOGLOBIN (test code = HGB) 14.9 G/DL 10.4-14.9 N HEMATOCRIT (test code = HCT) 49.2 % 31.5-44.1 H MEAN CELL VOLUME (test code = MCV) 88.0 Fl 84.5-98.6 N MEAN CELL HGB (test code = MCH) 26.7 pg 27.0-34.2 L MEAN CELL HGB CONCETRATION (test code = MCHC) 30.3 G/DL 31.5-34.0 L RED CELL DISTRIBUTION WIDTH (test code = RDW) 14.4 SD 11.5-14.5 N PLATELET COUNT (test code = PLT) 37 K/mm3 150-450 L MEAN PLATELET VOLUME (test code = MPV) 9.80 fL 7.0-10.5 N NEUTROPHIL % (test code = NT%) 82.0 % 40-76 H IMMATURE GRANULOCYTE % (test code = IG%) 4.8 % 0.0-5.0 N LYMPHOCYTE % (test code = LY%) 8.4 % 20.5-51.1 L MONOCYTE % (test code = MO%) 4.5 % 1.7-9.3 N EOSINOPHIL % (test code = EO%) 0.0 % 0.0-6.0 N BASOPHIL % (test code = BA%) 0.3 % 0.0-2.0 N NUCLEATED RBC % (test code = NRBC%) 0.2 /100WBC% 0.0-1.0 N NEUTROPHIL # (test code = NT#) 9.2 K/mm3 1.8-7.6 H IMMATURE GRANULOCYTE # (test code = IG#) 0.54 x10 3/uL 0.00-0.03 H LYMPHOCYTE # (test code = LY#) 0.9 K/mm3 0.6-3.2 N MONOCYTE # (test code = MO#) 0.5 K/mm3 0.3-1.1 N EOSINOPHIL # (test code = EO#) 0.0 K/mm3 0.0-0.4 N BASOPHIL # (test code = BA#) 0.0 K/mm3 0.0-0.1 N NUCLEATED RBC # (test code = NRBC#) 0.0 K/mm3 0.0-0.1 N MANUAL DIFF REQUIRED (test code = MDIFF) NO DIFF/SCN CRITERIA SLIDE REVIEW CONSISTANT WITH AUTO DIFFERENTIAL. CBC W/AUTO [id number] 07:01:00* Test Item Value Reference Range Interpretation Comme nts WHITE BLOOD CELL (test code = WBC) 11.2 K/mm3 3.5-11.0 H RED BLOOD CELL (test code = RBC) 5.59 M/mm3 4.70-6.10 N HEMOGLOBIN (test code = HGB) 14.9 G/DL 10.4-14.9 N HEMATOCRIT (test code = HCT) 49.2 % 31.5-44.1 H MEAN CELL VOLUME (test code = MCV) 88.0 Fl 84.5-98.6 N MEAN CELL HGB (test code = MCH) 26.7 pg 27.0-34.2 L MEAN CELL HGB CONCETRATION (test code = MCHC) 30.3 G/DL 31.5-34.0 L RED CELL DISTRIBUTION WIDTH (test code = RDW) 14.4 SD 11.5-14.5 N PLATELET COUNT (test code = PLT) 37 K/mm3 150-450 L MEAN PLATELET VOLUME (test code = MPV) 9.80 fL 7.0-10.5 N NEUTROPHIL % (test code = NT%) 82.0 % 40-76 H IMMATURE GRANULOCYTE % (test code = IG%) 4.8 % 0.0-5.0 N LYMPHOCYTE % (test code = LY%) 8.4 % 20.5-51.1 L MONOCYTE % (test code = MO%) 4.5 % 1.7-9.3 N EOSINOPHIL % (test code = EO%) 0.0 % 0.0-6.0 N BASOPHIL % (test code = BA%) 0.3 % 0.0-2.0 N NUCLEATED RBC % (test code = NRBC%) 0.2 /100WBC% 0.0-1.0 N NEUTROPHIL # (test code = NT#) 9.2 K/mm3 1.8-7.6 H IMMATURE GRANULOCYTE # (test code = IG#) 0.54 x10 3/uL 0.00-0.03 H LYMPHOCYTE # (test code = LY#) 0.9 K/mm3 0.6-3.2 N MONOCYTE # (test code = MO#) 0.5 K/mm3 0.3-1.1 N EOSINOPHIL # (test code = EO#) 0.0 K/mm3 0.0-0.4 N BASOPHIL # (test code = BA#) 0.0 K/mm3 0.0-0.1 N NUCLEATED RBC # (test code = NRBC#) 0.0 K/mm3 0.0-0.1 N MANUAL DIFF REQUIRED (test code = MDIFF) NO DIFF/SCN CRITERIA SLIDE REVIEW CONSISTANT WITH AUTO DIFFERENTIAL. BASIC METABOLIC [id number] 05:11:00* Test Item Value Reference Range Interpretation Comme nts SODIUM (test code = NA) 134 mmol/L 134-147 N POTASSIUM (test code = K) 4.7 mmol/L 3.4-5.0 N CHLORIDE (test code = CL) 102 mmol/L 100-108 N CARBON DIOXIDE (test code = CO2) 30 mmol/L 21-32 N ANION GAP (test code = GAP) 2.0 GAP calc 4.0-15.0 L GLUCOSE (test code = GLU) 187 MG/DL 70-110 H BLOOD UREA NITROGEN (test code = BUN) 17 MG/DL 7-18 N GLOMERULAR FILTRATION RATE (test code = GFR) >=60 max estimate estGFR >60 CREATININE (test code = CREAT) 0.6 MG/DL 0.6-1.0 N CALCIUM (test code = CA) 8.8 MG/DL 8.5-10.1 N CBC W/AUTO [id number] 04:58:00* Test Item Value Reference Range Interpretation Comme nts WHITE BLOOD CELL (test code = WBC) 11.2 K/mm3 3.5-11.0 H RED BLOOD CELL (test code = RBC) 5.59 M/mm3 4.70-6.10 N HEMOGLOBIN (test code = HGB) 14.9 G/DL 10.4-14.9 N HEMATOCRIT (test code = HCT) 49.2 % 31.5-44.1 H MEAN CELL VOLUME (test code = MCV) 88.0 Fl 84.5-98.6 N MEAN CELL HGB (test code = MCH) 26.7 pg 27.0-34.2 L MEAN CELL HGB CONCETRATION ( test code = MCHC) 30.3 G/DL 31.5-34.0 L RED CELL DISTRIBUTION WIDTH (test code = RDW) SD 11.5-14.5 N PLATELET COUNT (test code = PLT) 37 K/mm3 150-450 L MEAN PLATELET VOLUME (test c ode = MPV) fL 7.0-10.5 N NEUTROPHIL % (test code = NT%) % 40-76 H IMMATURE GRANULOCYTE % (test code = IG%) % 0.0-5.0 N LYMPHOCYTE % (test code = LY%) % 20.5-51.1 L MONOCYTE % (test code = MO%) % 1.7-9.3 N EOSINOPHIL % (test code = EO%) % 0.0-6.0 N BASOPHIL % (test code = BA%) % 0.0-2.0 N NUCLEATED RBC % (test code = NRBC%) /100WBC% 0.0-1.0 N NEUTROPHIL # (test code = NT#) K/mm3 1.8-7.6 H IMMATURE GRANULOCYTE # (test code = IG#) x10 3/uL 0.00-0.03 H LYMPHOCYTE # (test code = LY#) K/mm3 0.6-3.2 N MONOCYTE # (test code = MO#) K/mm3 0.3-1.1 N EOSINOPHIL # (test code = EO#) K/mm3 0.0-0.4 N BASOPHIL # (test code = BA#) K/mm3 0.0-0.1 N NUCLEATED RBC # (test code = NRBC#) K/mm3 0.0-0.1 N MANUAL DIFF REQUIRED (test c ode = MDIFF) DIFF/SCN CRITERIA GLUCOSE BEDSIDE [id number] 20:10:00* Test Item Value Reference Range Interpretation Comme nts GLUCOSE BEDSIDE TESTING (radha t code = GLUBED) 209 mg/dL 70-110 H GLUCOSE BEDSIDE [id number] 16:26:00* Test Item Value Reference Range Interpretation Comme nts GLUCOSE BEDSIDE TESTING (radha t code = GLUBED) 208 mg/dL 70-110 H GLUCOSE BEDSIDE [id number] 12:02:00* Test Item Value Reference Range Interpretation Comme nts GLUCOSE BEDSIDE TESTING (radha t code = GLUBED) 247 mg/dL 70-110 H GLUCOSE BEDSIDE [id number] 07:40:00* Test Item Value Reference Range Interpretation Comme nts GLUCOSE BEDSIDE TESTING (radha t code = GLUBED) 143 mg/dL 70-110 H CBC W/AUTO [id number] 07:04:00* Test Item Value Reference Range Interpretation Comme nts WHITE BLOOD CELL (test code = WBC) 9.1 K/mm3 3.5-11.0 N RED BLOOD CELL (test code = RBC) 5.16 M/mm3 4.70-6.10 N HEMOGLOBIN (test code = HGB) 14.0 G/DL 10.4-14.9 N HEMATOCRIT (test code = HCT) 46.7 % 31.5-44.1 H MEAN CELL VOLUME (test code = MCV) 90.5 Fl 84.5-98.6 N MEAN CELL HGB (test code = MCH) 27.1 pg 27.0-34.2 N MEAN CELL HGB CONCETRATION (test code = MCHC) 30.0 G/DL 31.5-34.0 L RED CELL DISTRIBUTION WIDTH (test code = RDW) 14.3 SD 11.5-14.5 N PLATELET COUNT (test code = PLT) 86 K/mm3 150-450 L MEAN PLATELET VOLUME (test code = MPV) 11.10 fL 7.0-10.5 H NEUTROPHIL % (test code = NT%) 81.7 % 40-76 H IMMATURE GRANULOCYTE % (test code = IG%) 4.2 % 0.0-5.0 N LYMPHOCYTE % (test code = LY%) 8.9 % 20.5-51.1 L MONOCYTE % (test code = MO%) 4.9 % 1.7-9.3 N EOSINOPHIL % (test code = EO%) 0.0 % 0.0-6.0 N BASOPHIL % (test code = BA%) 0.3 % 0.0-2.0 N NUCLEATED RBC % (test code = NRBC%) 0.3 /100WBC% 0.0-1.0 N NEUTROPHIL # (test code = NT#) 7.5 K/mm3 1.8-7.6 N IMMATURE GRANULOCYTE # (test code = IG#) 0.38 x10 3/uL 0.00-0.03 H LYMPHOCYTE # (test code = LY#) 0.8 K/mm3 0.6-3.2 N MONOCYTE # (test code = MO#) 0.5 K/mm3 0.3-1.1 N EOSINOPHIL # (test code = EO#) 0.0 K/mm3 0.0-0.4 N BASOPHIL # (test code = BA#) 0.0 K/mm3 0.0-0.1 N NUCLEATED RBC # (test code = NRBC#) 0.0 K/mm3 0.0-0.1 N MANUAL DIFF REQUIRED (test code = MDIFF) NO DIFF/SCN CRITERIA SLIDE REVIEW CONSISTANT WITH AUTO DIFFERENTIAL. RBC [id number] 07:04:00* Test Item Value Reference Range Interpretation Comments PLATELET ESTIMATE (test code = PLTEST) DECREASED THOUSAND ADEQUATE POSSIBLE CLUMPING DU E TO EDTA REACTION. RECOMMENDSCOLLECTION OF BLUE AND LAVENDER TUBE. SEEN PLATELETAGGREGATIONS. INTERPRET WITH CAUTION. NOTIFIED ZOYA PHELAN @0704 6.18.1 MGG PLATELET MORPHOLOGY (test code = PLTMORPH) AGGREGATES CBC W/AUTO [id number] 06:59:00* Test Item Value Reference Range Interpretation Comme nts WHITE BLOOD CELL (test code = WBC) 9.1 K/mm3 3.5-11.0 N RED BLOOD CELL (test code = RBC) 5.16 M/mm3 4.70-6.10 N HEMOGLOBIN (test code = HGB) 14.0 G/DL 10.4-14.9 N HEMATOCRIT (test code = HCT) 46.7 % 31.5-44.1 H MEAN CELL VOLUME (test code = MCV) 90.5 Fl 84.5-98.6 N MEAN CELL HGB (test code = MCH) 27.1 pg 27.0-34.2 N MEAN CELL HGB CONCETRATION (test code = MCHC) 30.0 G/DL 31.5-34.0 L RED CELL DISTRIBUTION WIDTH (test code = RDW) 14.3 SD 11.5-14.5 N PLATELET COUNT (test code = PLT) 86 K/mm3 150-450 L MEAN PLATELET VOLUME (test code = MPV) 11.10 fL 7.0-10.5 H NEUTROPHIL % (test code = NT%) 81.7 % 40-76 H IMMATURE GRANULOCYTE % (test code = IG%) 4.2 % 0.0-5.0 N LYMPHOCYTE % (test code = LY%) 8.9 % 20.5-51.1 L MONOCYTE % (test code = MO%) 4.9 % 1.7-9.3 N EOSINOPHIL % (test code = EO%) 0.0 % 0.0-6.0 N BASOPHIL % (test code = BA%) 0.3 % 0.0-2.0 N NUCLEATED RBC % (test code = NRBC%) 0.3 /100WBC% 0.0-1.0 N NEUTROPHIL # (test code = NT#) 7.5 K/mm3 1.8-7.6 N IMMATURE GRANULOCYTE # (test code = IG#) 0.38 x10 3/uL 0.00-0.03 H LYMPHOCYTE # (test code = LY#) 0.8 K/mm3 0.6-3.2 N MONOCYTE # (test code = MO#) 0.5 K/mm3 0.3-1.1 N EOSINOPHIL # (test code = EO#) 0.0 K/mm3 0.0-0.4 N BASOPHIL # (test code = BA#) 0.0 K/mm3 0.0-0.1 N NUCLEATED RBC # (test code = NRBC#) 0.0 K/mm3 0.0-0.1 N MANUAL DIFF REQUIRED (test code = MDIFF) NO DIFF/SCN CRITERIA SLIDE REVIEW CONSISTANT WITH AUTO DIFFERENTIAL. CBC W/AUTO [id number] 06:59:00* Test Item Value Reference Range Interpretation Comme nts WHITE BLOOD CELL (test code = WBC) 9.1 K/mm3 3.5-11.0 N RED BLOOD CELL (test code = RBC) 5.16 M/mm3 4.70-6.10 N HEMOGLOBIN (test code = HGB) 14.0 G/DL 10.4-14.9 N HEMATOCRIT (test code = HCT) 46.7 % 31.5-44.1 H MEAN CELL VOLUME (test code = MCV) 90.5 Fl 84.5-98.6 N MEAN CELL HGB (test code = MCH) 27.1 pg 27.0-34.2 N MEAN CELL HGB CONCETRATION (test code = MCHC) 30.0 G/DL 31.5-34.0 L RED CELL DISTRIBUTION WIDTH (test code = RDW) 14.3 SD 11.5-14.5 N PLATELET COUNT (test code = PLT) 86 K/mm3 150-450 L MEAN PLATELET VOLUME (test code = MPV) 11.10 fL 7.0-10.5 H NEUTROPHIL % (test code = NT%) 81.7 % 40-76 H IMMATURE GRANULOCYTE % (test code = IG%) 4.2 % 0.0-5.0 N LYMPHOCYTE % (test code = LY%) 8.9 % 20.5-51.1 L MONOCYTE % (test code = MO%) 4.9 % 1.7-9.3 N EOSINOPHIL % (test code = EO%) 0.0 % 0.0-6.0 N BASOPHIL % (test code = BA%) 0.3 % 0.0-2.0 N NUCLEATED RBC % (test code = NRBC%) 0.3 /100WBC% 0.0-1.0 N NEUTROPHIL # (test code = NT#) 7.5 K/mm3 1.8-7.6 N IMMATURE GRANULOCYTE # (test code = IG#) 0.38 x10 3/uL 0.00-0.03 H LYMPHOCYTE # (test code = LY#) 0.8 K/mm3 0.6-3.2 N MONOCYTE # (test code = MO#) 0.5 K/mm3 0.3-1.1 N EOSINOPHIL # (test code = EO#) 0.0 K/mm3 0.0-0.4 N BASOPHIL # (test code = BA#) 0.0 K/mm3 0.0-0.1 N NUCLEATED RBC # (test code = NRBC#) 0.0 K/mm3 0.0-0.1 N MANUAL DIFF REQUIRED (test code = MDIFF) NO DIFF/SCN CRITERIA SLIDE REVIEW CONSISTANT WITH AUTO DIFFERENTIAL. BASIC METABOLIC [id number] 06:31:00* Test Item Value Reference Range Interpretation Comme nts SODIUM (test code = NA) 138 mmol/L 134-147 N POTASSIUM (test code = K) 4.5 mmol/L 3.4-5.0 N CHLORIDE (test code = CL) 101 mmol/L 100-108 N CARBON DIOXIDE (test code = CO2) 34 mmol/L 21-32 H ANION GAP (test code = GAP) 3.0 GAP calc 4.0-15.0 L GLUCOSE (test code = GLU) 176 MG/DL 70-110 H BLOOD UREA NITROGEN (test code = BUN) 20 MG/DL 7-18 H GLOMERULAR FILTRATION RATE (test code = GFR) >=60 max estimate estGFR >60 CREATININE (test code = CREAT) 0.5 MG/DL 0.6-1.0 L CALCIUM (test code = CA) 8.9 MG/DL 8.5-10.1 N BASIC METABOLIC [id number] 06:29:00* Test Item Value Reference Range Interpretation Comme nts SODIUM (test code = NA) 138 mmol/L 134-147 N POTASSIUM (test code = K) 4.5 mmol/L 3.4-5.0 N CHLORIDE (test code = CL) 101 mmol/L 100-108 N CARBON DIOXIDE (test code = CO2) 34 mmol/L 21-32 H ANION GAP (test code = GAP) 3.0 GAP calc 4.0-15.0 L GLUCOSE (test code = GLU) 176 MG/DL 70-110 H BLOOD UREA NITROGEN (test co de = BUN) 20 MG/DL 7-18 H GLOMERULAR FILTRATION RATE ( test code = GFR) estGFR >60 CREATININE (test code = CREAT) MG/DL 0.6-1.0 CALCIUM (test code = CA) 8.9 MG/DL 8.5-10.1 N CBC W/AUTO [id number] 06:10:00* Test Item Value Reference Range Interpretation Comme nts WHITE BLOOD CELL (test code = WBC) 9.1 K/mm3 3.5-11.0 N RED BLOOD CELL (test code = RBC) 5.16 M/mm3 4.70-6.10 N HEMOGLOBIN (test code = HGB) 14.0 G/DL 10.4-14.9 N HEMATOCRIT (test code = HCT) 46.7 % 31.5-44.1 H MEAN CELL VOLUME (test code = MCV) 90.5 Fl 84.5-98.6 N MEAN CELL HGB (test code = MCH) 27.1 pg 27.0-34.2 N MEAN CELL HGB CONCETRATION ( test code = MCHC) 30.0 G/DL 31.5-34.0 L RED CELL DISTRIBUTION WIDTH (test code = RDW) SD 11.5-14.5 N PLATELET COUNT (test code = PLT) 86 K/mm3 150-450 L MEAN PLATELET VOLUME (test c ode = MPV) fL 7.0-10.5 H NEUTROPHIL % (test code = NT%) % 40-76 H IMMATURE GRANULOCYTE % (test code = IG%) % 0.0-5.0 N LYMPHOCYTE % (test code = LY%) % 20.5-51.1 L MONOCYTE % (test code = MO%) % 1.7-9.3 N EOSINOPHIL % (test code = EO%) % 0.0-6.0 N BASOPHIL % (test code = BA%) % 0.0-2.0 N NUCLEATED RBC % (test code = NRBC%) /100WBC% 0.0-1.0 N NEUTROPHIL # (test code = NT#) K/mm3 1.8-7.6 N IMMATURE GRANULOCYTE # (test code = IG#) x10 3/uL 0.00-0.03 H LYMPHOCYTE # (test code = LY#) K/mm3 0.6-3.2 N MONOCYTE # (test code = MO#) K/mm3 0.3-1.1 N EOSINOPHIL # (test code = EO#) K/mm3 0.0-0.4 N BASOPHIL # (test code = BA#) K/mm3 0.0-0.1 N NUCLEATED RBC # (test code = NRBC#) K/mm3 0.0-0.1 N MANUAL DIFF REQUIRED (test c ode = MDIFF) DIFF/SCN CRITERIA GLUCOSE BEDSIDE [id number] 21:41:00* Test Item Value Reference Range Interpretation Comme [facility] GLUCOSE BEDSIDE TESTING (radha t code = GLUBED) 179 mg/dL 70-110 H GLUCOSE BEDSIDE [id number] 18:24:00* Test Item Value Reference Range Interpretation Comme [facility] GLUCOSE BEDSIDE TESTING (radha t code = GLUBED) 156 mg/dL 70-110 H ARTERIAL BLOOD [id number] 16:11:00* Test Item Value Reference Range Interpretation Comme [facility] ARTERIAL BLOOD GAS PH (test code = PHA) 7.41 pH units 7.35-7.45 N ARTERIAL BLOOD GAS PCO2 (test code = PCO2A) 56 mmHg 35-45 H ARTERIAL BLOOD GAS PO2 (test code = PO2A) 50 mmHg 80-100 L BICARBONATE TOTAL HCO3 (test code = HCO3) 34.9 mmol/L 22.0-26.0 H BASE EXCESS (test code = ADDISON) 8.3 mmol/L -3.0-3.0 H ABG O2 SATURATION (test code = SATA) 85 % 90-100 L FIO2 (test code = FIO2A) 90 % (calc) 21-100 N ABG VENT MODE (test code = MODEA) Nasal Cannula Descript Vent Mode ABG SITE (test code = SITEA) Left Radial ARTKIT DESCRIPTION MODIFIED TOSHA'S (test code = MODALL) Yes Circ.CHK POSITIVE PaO2/[id number] 16:11:00* Test Item Value Reference Range Interpretation Comme [facility] PaO2/FiO2 (test code = [id number]) 55.6 mm/Hg See_Comment L [Automated mess age] The system which generated this result transmitted reference range: 200. The reference range was not used to interpret this result as normal/abnormal. ARTERIAL BLOOD [id number] 16:10:00* Test Item Value Reference Range Interpretation Comme [facility] ARTERIAL BLOOD GAS PH (test code = PHA) 7.41 pH units 7.35-7.45 N ARTERIAL BLOOD GAS PCO2 (test code = PCO2A) 56 mmHg 35-45 H ARTERIAL BLOOD GAS PO2 (test code = PO2A) 50 mmHg 80-100 L BICARBONATE TOTAL HCO3 (test code = HCO3) 34.9 mmol/L 22.0-26.0 H BASE EXCESS (test code = ADDISON) 8.3 mmol/L -3.0-3.0 H ABG O2 SATURATION (test code = SATA) 85 % 90-100 L FIO2 (test code = FIO2A) 90 % (calc) 21-100 N ABG VENT MODE (test code = MODEA) Nasal Cannula Descript Vent Mode ABG SITE (test code = SITEA) Left Radial ARTKIT DESCRIPTION MODIFIED TOSHA'S (test code = MODALL) Yes Circ.CHK POSITIVE PaO2/[id number] 16:10:00* Test Item Value Reference Range Interpretation Comme nts PaO2/FiO2 (test code = [id number]) mm/Hg See_Comment [Automated messa ge] The system which generated this result transmitted reference range: 200. The reference range was not used to interpret this result as normal/abnormal. GLUCOSE BEDSIDE [id number] 11:37:00* Test Item Value Reference Range Interpretation Comme nts GLUCOSE BEDSIDE TESTING (radha t code = GLUBED) 171 mg/dL 70-110 H CBC W/AUTO [id number] 11:10:00* Test Item Value Reference Range Interpretation Comme nts WHITE BLOOD CELL (test code = WBC) 9.0 K/mm3 3.5-11.0 N RED BLOOD CELL (test code = RBC) 5.22 M/mm3 4.70-6.10 N HEMOGLOBIN (test code = HGB) 14.0 G/DL 10.4-14.9 N HEMATOCRIT (test code = HCT) 47.4 % 31.5-44.1 H MEAN CELL VOLUME (test code = MCV) 90.8 Fl 84.5-98.6 N MEAN CELL HGB (test code = MCH) 26.8 pg 27.0-34.2 L MEAN CELL HGB CONCETRATION (test code = MCHC) 29.5 G/DL 31.5-34.0 L RED CELL DISTRIBUTION WIDTH (test code = RDW) 14.6 SD 11.5-14.5 H PLATELET COUNT (test code = PLT) 74 K/mm3 150-450 L POSSIBLE CLUMPIN G DUE TO EDTA REACTION, IF CLUMPING ISSUEPERSISTS LAB RECOMMENDS FUTURE HEMATOLGY TESTING BECOLLECTED IN A BLUE AND LAVENDER TOP TUBE.INTERPRET WITH CAUTION. MEAN PLATELET VOLUME (test code = MPV) 11.40 fL 7.0-10.5 H NEUTROPHIL % (test code = NT%) 84.0 % 40-76 H IMMATURE GRANULOCYTE % (test code = IG%) 2.1 % 0.0-5.0 N LYMPHOCYTE % (test code = LY%) 8.0 % 20.5-51.1 L MONOCYTE % (test code = MO%) 5.6 % 1.7-9.3 N EOSINOPHIL % (test code = EO%) 0.1 % 0.0-6.0 N BASOPHIL % (test code = BA%) 0.2 % 0.0-2.0 N NUCLEATED RBC % (test code = NRBC%) 0.4 /100WBC% 0.0-1.0 N NEUTROPHIL # (test code = NT#) 7.5 K/mm3 1.8-7.6 N IMMATURE GRANULOCYTE # (test code = IG#) 0.19 x10 3/uL 0.00-0.03 H LYMPHOCYTE # (test code = LY#) 0.7 K/mm3 0.6-3.2 N MONOCYTE # (test code = MO#) 0.5 K/mm3 0.3-1.1 N EOSINOPHIL # (test code = EO#) 0.0 K/mm3 0.0-0.4 N BASOPHIL # (test code = BA#) 0.0 K/mm3 0.0-0.1 N NUCLEATED RBC # (test code = NRBC#) 0.0 K/mm3 0.0-0.1 N MANUAL DIFF REQUIRED (test code = MDIFF) NO DIFF/SCN CRITERIA SLIDE REVIEW CONSISTANT WITH AUTO DIFFERENTIAL. RBC [id number] 11:10:00* Test Item Value Reference Range Interpretation Comme nts PLATELET ESTIMATE (test code = PLTEST) DECREASED THOUSAND ADEQUATE ESTIMATED PLATELET RANGE = 64,000 - 80,000 PLATELET MORPHOLOGY (test code = PLTMORPH) CLUMPS CBC W/AUTO [id number] 11:06:00* Test Item Value Reference Range Interpretation Comme nts WHITE BLOOD CELL (test code = WBC) 9.0 K/mm3 3.5-11.0 N RED BLOOD CELL (test code = RBC) 5.22 M/mm3 4.70-6.10 N HEMOGLOBIN (test code = HGB) 14.0 G/DL 10.4-14.9 N HEMATOCRIT (test code = HCT) 47.4 % 31.5-44.1 H MEAN CELL VOLUME (test code = MCV) 90.8 Fl 84.5-98.6 N MEAN CELL HGB (test code = MCH) 26.8 pg 27.0-34.2 L MEAN CELL HGB CONCETRATION (test code = MCHC) 29.5 G/DL 31.5-34.0 L RED CELL DISTRIBUTION WIDTH (test code = RDW) 14.6 SD 11.5-14.5 H PLATELET COUNT (test code = PLT) 74 K/mm3 150-450 L POSSIBLE CLUMPIN G DUE TO EDTA REACTION, IF CLUMPING ISSUEPERSISTS LAB RECOMMENDS FUTURE HEMATOLGY TESTING BECOLLECTED IN A BLUE AND LAVENDER TOP TUBE.INTERPRET WITH CAUTION. MEAN PLATELET VOLUME (test code = MPV) 11.40 fL 7.0-10.5 H NEUTROPHIL % (test code = NT%) 84.0 % 40-76 H IMMATURE GRANULOCYTE % (test code = IG%) 2.1 % 0.0-5.0 N LYMPHOCYTE % (test code = LY%) 8.0 % 20.5-51.1 L MONOCYTE % (test code = MO%) 5.6 % 1.7-9.3 N EOSINOPHIL % (test code = EO%) 0.1 % 0.0-6.0 N BASOPHIL % (test code = BA%) 0.2 % 0.0-2.0 N NUCLEATED RBC % (test code = NRBC%) 0.4 /100WBC% 0.0-1.0 N NEUTROPHIL # (test code = NT#) 7.5 K/mm3 1.8-7.6 N IMMATURE GRANULOCYTE # (test code = IG#) 0.19 x10 3/uL 0.00-0.03 H LYMPHOCYTE # (test code = LY#) 0.7 K/mm3 0.6-3.2 N MONOCYTE # (test code = MO#) 0.5 K/mm3 0.3-1.1 N EOSINOPHIL # (test code = EO#) 0.0 K/mm3 0.0-0.4 N BASOPHIL # (test code = BA#) 0.0 K/mm3 0.0-0.1 N NUCLEATED RBC # (test code = NRBC#) 0.0 K/mm3 0.0-0.1 N MANUAL DIFF REQUIRED (test code = MDIFF) NO DIFF/SCN CRITERIA SLIDE REVIEW CONSISTANT WITH AUTO DIFFERENTIAL. CBC W/AUTO [id number] 11:05:00* Test Item Value Reference Range Interpretation Comme nts WHITE BLOOD CELL (test code = WBC) 9.0 K/mm3 3.5-11.0 N RED BLOOD CELL (test code = RBC) 5.22 M/mm3 4.70-6.10 N HEMOGLOBIN (test code = HGB) 14.0 G/DL 10.4-14.9 N HEMATOCRIT (test code = HCT) 47.4 % 31.5-44.1 H MEAN CELL VOLUME (test code = MCV) 90.8 Fl 84.5-98.6 N MEAN CELL HGB (test code = MCH) 26.8 pg 27.0-34.2 L MEAN CELL HGB CONCETRATION (test code = MCHC) 29.5 G/DL 31.5-34.0 L RED CELL DISTRIBUTION WIDTH (test code = RDW) 14.6 SD 11.5-14.5 H PLATELET COUNT (test code = PLT) 74 K/mm3 150-450 L POSSIBLE CLUMPIN G DUE TO EDTA REACTION, IF CLUMPING ISSUEPERSISTS LAB RECOMMENDS FUTURE HEMATOLGY TESTING BECOLLECTED IN A BLUE AND LAVENDER TOP TUBE.INTERPRET WITH CAUTION. MEAN PLATELET VOLUME (test code = MPV) 11.40 fL 7.0-10.5 H NEUTROPHIL % (test code = NT%) 84.0 % 40-76 H IMMATURE GRANULOCYTE % (test code = IG%) 2.1 % 0.0-5.0 N LYMPHOCYTE % (test code = LY%) 8.0 % 20.5-51.1 L MONOCYTE % (test code = MO%) 5.6 % 1.7-9.3 N EOSINOPHIL % (test code = EO%) 0.1 % 0.0-6.0 N BASOPHIL % (test code = BA%) 0.2 % 0.0-2.0 N NUCLEATED RBC % (test code = NRBC%) 0.4 /100WBC% 0.0-1.0 N NEUTROPHIL # (test code = NT#) 7.5 K/mm3 1.8-7.6 N IMMATURE GRANULOCYTE # (test code = IG#) 0.19 x10 3/uL 0.00-0.03 H LYMPHOCYTE # (test code = LY#) 0.7 K/mm3 0.6-3.2 N MONOCYTE # (test code = MO#) 0.5 K/mm3 0.3-1.1 N EOSINOPHIL # (test code = EO#) 0.0 K/mm3 0.0-0.4 N BASOPHIL # (test code = BA#) 0.0 K/mm3 0.0-0.1 N NUCLEATED RBC # (test code = NRBC#) 0.0 K/mm3 0.0-0.1 N MANUAL DIFF REQUIRED (test code = MDIFF) NO DIFF/SCN CRITERIA SLIDE REVIEW CONSISTANT WITH AUTO DIFFERENTIAL. CBC W/AUTO [id number] 09:36:00* Test Item Value Reference Range Interpretation Comme nts WHITE BLOOD CELL (test code = WBC) 9.0 K/mm3 3.5-11.0 N RED BLOOD CELL (test code = RBC) 5.22 M/mm3 4.70-6.10 N HEMOGLOBIN (test code = HGB) 14.0 G/DL 10.4-14.9 N HEMATOCRIT (test code = HCT) 47.4 % 31.5-44.1 H MEAN CELL VOLUME (test code = MCV) 90.8 Fl 84.5-98.6 N MEAN CELL HGB (test code = MCH) 26.8 pg 27.0-34.2 L MEAN CELL HGB CONCETRATION ( test code = MCHC) 29.5 G/DL 31.5-34.0 L RED CELL DISTRIBUTION WIDTH (test code = RDW) SD 11.5-14.5 H PLATELET COUNT (test code = PLT) K/mm3 150-450 MEAN PLATELET VOLUME (test c ode = MPV) fL 7.0-10.5 NEUTROPHIL % (test code = NT%) % 40-76 H IMMATURE GRANULOCYTE % (test code = IG%) % 0.0-5.0 N LYMPHOCYTE % (test code = LY%) % 20.5-51.1 L MONOCYTE % (test code = MO%) % 1.7-9.3 N EOSINOPHIL % (test code = EO%) % 0.0-6.0 N BASOPHIL % (test code = BA%) % 0.0-2.0 N NUCLEATED RBC % (test code = NRBC%) /100WBC% 0.0-1.0 N NEUTROPHIL # (test code = NT#) K/mm3 1.8-7.6 N IMMATURE GRANULOCYTE # (test code = IG#) x10 3/uL 0.00-0.03 H LYMPHOCYTE # (test code = LY#) K/mm3 0.6-3.2 N MONOCYTE # (test code = MO#) K/mm3 0.3-1.1 N EOSINOPHIL # (test code = EO#) K/mm3 0.0-0.4 N BASOPHIL # (test code = BA#) K/mm3 0.0-0.1 N NUCLEATED RBC # (test code = NRBC#) K/mm3 0.0-0.1 N MANUAL DIFF REQUIRED (test c ode = MDIFF) DIFF/SCN CRITERIA - XR CHEST 1 [id number] 09:32:00 [facility] 1965 Sex: F Name: LORI DELUCA [facility] : 1965 Age/S: 55 / F [id number] Unit #: [id number] Loc: [place] [address] Phys: Sergio Love AGACNP Acct: [id number] Dis Date: Status: ADM IN PHONE #: [phone] Exam Date: 01/01/2021 0602 FAX #: Reason: COVID EXAMS: CPT: [id number] XR CHEST1 V 75998 Fluoro Time: DAP (Gy m2): Air Kerma (mGy): EXAMINATION: - XR CHEST 1 V. LOCATION: S17. HISTORY: COVID pneumonia. COMPARISON: Chest x-ray 12/30/2020, CTA chest 12/27/20. FINDINGS: Examination is limited due to portable technique, patient body habitus and low lung volumes. Cardiac silhouette/Mediastinal contour: Prominence of cardiac silhouette. Lungs: Essentially unchanged bilateral scattered interstitial and groundglass airspace opacities. No large pleural effusion. Osseous Structures:Mild degenerative changes affect thoracic spine. IMPRESSION: Essentially unchanged bilateral scattered interstitial and groundglass airspace opacities. at 0932 Reported and signed by: Adam Pimentel M.D. CC: Alfred Escobedo MD; Sergio Love PAGE 1 Signed Report Name: LORI DELUCA : 1965 Age/S: 55 / F [id number] Unit #: [id number] Loc: [place] [address] Phys: Sergio Love Acct: [id number] Dis Date: Status: ADM IN PHONE #: [phone] Exam Date: 01/01/2021601 FAX #: Reason: COVID EXAMS: CPT: [id number] XR CHEST 1 V 24463 Fluoro Time: DAP (Gy m2): Air Kerma (mGy): (Continued) Technologist: Adriana Forte RT(R)(CT) Trnscb Date/Time: 01/01/2021 (931) [email or web address] Orig Print D/T: S: 01/01/2021 (0935) PAGE 2 Signed ReportGLUCOSE BEDSIDE [id number] 08:22:00* Test Item Value Reference Range Interpretation Comme nts GLUCOSE BEDSIDE TESTING (radha t code = GLUBED) 143 mg/dL 70-110 H BASIC METABOLIC [id number] 06:55:00* Test Item Value Reference Range Interpretation Comme nts SODIUM (test code = NA) 141 mmol/L 134-147 N POTASSIUM (test code = K) 4.9 mmol/L 3.4-5.0 N CHLORIDE (test code = CL) 102 mmol/L 100-108 N CARBON DIOXIDE (test code = CO2) 37 mmol/L 21-32 H ANION GAP (test code = GAP) 2.0 GAP calc 4.0-15.0 L GLUCOSE (test code = GLU) 154 MG/DL 70-110 H BLOOD UREA NITROGEN (test code = BUN) 19 MG/DL 7-18 H GLOMERULAR FILTRATION RATE (test code = GFR) >=60 max estimate estGFR >60 CREATININE (test code = CREAT) 0.5 MG/DL 0.6-1.0 L CALCIUM (test code = CA) 8.7 MG/DL 8.5-10.1 N LACTIC DEHYDROGENASE(LDH)2021-01-01 06:55:00* Test Item Value Reference Range Interpretation Comme nts LACTIC DEHYDROGENASE(LDH) (t est code = LDH) 281 Unit/L 84-246 H [id number] 06:55:00* Test Item Value Reference Range Interpretation Comme nts FERRITIN (test code = WOOD) 133.9 NG/ML 3.0-105.0 H BASIC METABOLIC [id number] 06:52:00* Test Item Value Reference Range Interpretation Comme nts SODIUM (test code = NA) 141 mmol/L 134-147 N POTASSIUM (test code = K) 4.9 mmol/L 3.4-5.0 N CHLORIDE (test code = CL) 102 mmol/L 100-108 N CARBON DIOXIDE (test code = CO2) 37 mmol/L 21-32 H ANION GAP (test code = GAP) 2.0 GAP calc 4.0-15.0 L GLUCOSE (test code = GLU) 154 MG/DL 70-110 H BLOOD UREA NITROGEN (test co de = BUN) 19 MG/DL 7-18 H GLOMERULAR FILTRATION RATE ( test code = GFR) estGFR >60 CREATININE (test code = CREAT) MG/DL 0.6-1.0 CALCIUM (test code = CA) 8.7 MG/DL 8.5-10.1 N LACTIC DEHYDROGENASE(LDH)2021-01-01 06:52:00* Test Item Value Reference Range Interpretation Comme nts LACTIC DEHYDROGENASE(LDH) (t est code = LDH) Unit/L 84-246 [id number] 06:52:00* Test Item Value Reference Range Interpretation Comme nts FERRITIN (test code = WOOD) NG/ML 3.0-105.0 [id number] 06:41:00* Test Item Value Reference Range Interpretation Comme nts D-DIMER (test code = DDIMER) 430 ng/mLFEU 215-500 N C REACTIVE [id number] 06:40:00* Test Item Value Reference Range Interpretation Comme nts C REACTIVE PROTEIN (test cod e = CRP) 7.530 MG/DL 0.000-0.3 H GLUCOSE BEDSIDE [id number] 21:00:00* Test Item Value Reference Range Interpretation Comme nts GLUCOSE BEDSIDE TESTING (radha t code = GLUBED) 175 mg/dL 70-110 H GLUCOSE BEDSIDE [id number] 16:53:00* Test Item Value Reference Range Interpretation Comme nts GLUCOSE BEDSIDE TESTING (radha t code = GLUBED) 126 mg/dL 70-110 H GLUCOSE BEDSIDE [id number] 12:19:00* Test Item Value Reference Range Interpretation Comme nts GLUCOSE BEDSIDE TESTING (radha t code = GLUBED) 122 mg/dL 70-110 H GLUCOSE BEDSIDE [id number] 08:20:00* Test Item Value Reference Range Interpretation Comme nts GLUCOSE BEDSIDE TESTING (radha t code = GLUBED) 119 mg/dL 70-110 H BASIC METABOLIC [id number] 06:37:00* Test Item Value Reference Range Interpretation Comme nts SODIUM (test code = NA) 138 mmol/L 134-147 N POTASSIUM (test code = K) 4.7 mmol/L 3.4-5.0 N CHLORIDE (test code = CL) 103 mmol/L 100-108 N CARBON DIOXIDE (test code = CO2) 34 mmol/L 21-32 H ANION GAP (test code = GAP) 1.0 GAP calc 4.0-15.0 L GLUCOSE (test code = GLU) 156 MG/DL 70-110 H BLOOD UREA NITROGEN (test code = BUN) 20 MG/DL 7-18 H GLOMERULAR FILTRATION RATE (test code = GFR) >=60 max estimate estGFR >60 CREATININE (test code = CREAT) 0.5 MG/DL 0.6-1.0 L CALCIUM (test code = CA) 8.5 MG/DL 8.5-10.1 N CBC W/AUTO [id number] 06:33:00* Test Item Value Reference Range Interpretation Comme nts WHITE BLOOD CELL (test code = WBC) 10.8 K/mm3 3.5-11.0 N RED BLOOD CELL (test code = RBC) 5.05 M/mm3 4.70-6.10 N HEMOGLOBIN (test code = HGB) 13.3 G/DL 10.4-14.9 N HEMATOCRIT (test code = HCT) 45.9 % 31.5-44.1 H MEAN CELL VOLUME (test code = MCV) 90.9 Fl 84.5-98.6 N MEAN CELL HGB (test code = MCH) 26.3 pg 27.0-34.2 L MEAN CELL HGB CONCETRATION (test code = MCHC) 29.0 G/DL 31.5-34.0 L RED CELL DISTRIBUTION WIDTH (test code = RDW) 14.6 SD 11.5-14.5 H PLATELET COUNT (test code = PLT) 151 K/mm3 150-450 N MEAN PLATELET VOLUME (test c ode = MPV) 11.70 fL 7.0-10.5 H NEUTROPHIL % (test code = NT%) 88.4 % 40-76 H IMMATURE GRANULOCYTE % (test code = IG%) 1.5 % 0.0-5.0 N LYMPHOCYTE % (test code = LY%) 5.8 % 20.5-51.1 L MONOCYTE % (test code = MO%) 4.1 % 1.7-9.3 N EOSINOPHIL % (test code = EO%) 0.0 % 0.0-6.0 N BASOPHIL % (test code = BA%) 0.2 % 0.0-2.0 N NUCLEATED RBC % (test code = NRBC%) 0.6 /100WBC% 0.0-1.0 N NEUTROPHIL # (test code = NT#) 9.5 K/mm3 1.8-7.6 H IMMATURE GRANULOCYTE # (test code = IG#) 0.16 x10 3/uL 0.00-0.03 H LYMPHOCYTE # (test code = LY#) 0.6 K/mm3 0.6-3.2 N MONOCYTE # (test code = MO#) 0.4 K/mm3 0.3-1.1 N EOSINOPHIL # (test code = EO#) 0.0 K/mm3 0.0-0.4 N BASOPHIL # (test code = BA#) 0.0 K/mm3 0.0-0.1 N NUCLEATED RBC # (test code = NRBC#) 0.1 K/mm3 0.0-0.1 N MANUAL DIFF REQUIRED (test c ode = MDIFF) NO DIFF/SCN CRITERIA GLUCOSE BEDSIDE [id number] 20:10:00* Test Item Value Reference Range Interpretation Comme nts GLUCOSE BEDSIDE TESTING (radha t code = GLUBED) 153 mg/dL 70-110 H GLUCOSE BEDSIDE [id number] 17:51:00* Test Item Value Reference Range Interpretation Comme nts GLUCOSE BEDSIDE TESTING (radha t code = GLUBED) 185 mg/dL 70-110 H GLUCOSE BEDSIDE [id number] 12:35:00* Test Item Value Reference Range Interpretation Comme nts GLUCOSE BEDSIDE TESTING (radha t code = GLUBED) 181 mg/dL 70-110 H GLUCOSE BEDSIDE [id number] 12:35:00* Test Item Value Reference Range Interpretation Comme nts GLUCOSE BEDSIDE TESTING (radha t code = GLUBED) 138 mg/dL 70-110 H - XR CHEST 1 [id number] 09:06:00 [facility] 1965 Sex: F Name: LORI DELUCA [facility] : 1965 Age/S: 55 / F [id number] [address] Unit #: [id number] Loc: [place] [address] Phys: Sergio Love AGACNP Acct: [id number] Dis Date: Status: ADM IN PHONE #: [phone] Exam Date: 12/30/2020 0510 FAX #: Reason: COVID EXAMS: CPT: [id number] XR CHEST 1 V 00652 Fluoro Time: DAP (Gy m2): Air Kerma (mGy): EXAMINATION: - XR CHEST 1 V. LOCATION: S17. HISTORY: COVID. COMPARISON: Chest x-ray and CTA chest 12/27/20. FINDINGS: Examination is limited due to portable technique, patient body habitus and low lung volumes. Cardiac silhouette/Mediastinal contour: Prominence of cardiac silhouette. Lungs: Continued progression of bilateral scattered intersti tial and groundglass airspace opacities. No large pleural effusion. Osseous Structures: Mild degenerative changes affect thoracic spine. IMPRESSION: Continued progression of bilateral scattered interstitial and groundglass airspace opacities. at 0906 Reported and signed by: Adam Pimentel M.D. CC: Alfred Escobedo MD; Sergio Love PAGE 1 Signed Report Name: LORI DELUCA [place] : 1965 Age/S: 55 / F [address] [address] Unit #: [id number] Loc: [place] [address] Phys: Sergio Love Acct: [id number] Dis Date: Status: ADM IN PHONE #: [phone] Exam Date: 12/30/2020 0510 FAX #: Reason: COVID EXAMS: CPT: [id number] XR CHEST 1 V 52495 Fluoro Time: DAP (Gy m2): Air Kerma (mGy): (Continued) Technologist: Linda Mayorga, RT(R)(CT) Trnscb Date/Time: 12/30/2020 (905) [email or web address] Orig Print D/T: S: 12/30/2020 (0909) PAGE 2 Signed ReportCBC W/AUTO [id number] 06:31:00* Test Item Value Reference Range Interpretation Comme nts WHITE BLOOD CELL (test code = WBC) 8.2 K/mm3 3.5-11.0 N RED BLOOD CELL (test code = RBC) 4.82 M/mm3 4.70-6.10 N HEMOGLOBIN (test code = HGB) 13.0 G/DL 10.4-14.9 N HEMATOCRIT (test code = HCT) 43.8 % 31.5-44.1 N MEAN CELL VOLUME (test code = MCV) 90.9 Fl 84.5-98.6 N MEAN CELL HGB (test code = MCH) 27.0 pg 27.0-34.2 N MEAN CELL HGB CONCETRATION (test code = MCHC) 29.7 G/DL 31.5-34.0 L RED CELL DISTRIBUTION WIDTH (test code = RDW) 14.5 SD 11.5-14.5 N PLATELET COUNT (test code = PLT) 142 K/mm3 150-450 L MEAN PLATELET VOLUME (test c ode = MPV) 11.90 fL 7.0-10.5 H NEUTROPHIL % (test code = NT%) 86.4 % 40-76 H IMMATURE GRANULOCYTE % (test code = IG%) 1.2 % 0.0-5.0 N LYMPHOCYTE % (test code = LY%) 7.8 % 20.5-51.1 L MONOCYTE % (test code = MO%) 4.5 % 1.7-9.3 N EOSINOPHIL % (test code = EO%) 0.0 % 0.0-6.0 N BASOPHIL % (test code = BA%) 0.1 % 0.0-2.0 N NUCLEATED RBC % (test code = NRBC%) 0.4 /100WBC% 0.0-1.0 N NEUTROPHIL # (test code = NT#) 7.1 K/mm3 1.8-7.6 N IMMATURE GRANULOCYTE # (test code = IG#) 0.10 x10 3/uL 0.00-0.03 H LYMPHOCYTE # (test code = LY#) 0.6 K/mm3 0.6-3.2 N MONOCYTE # (test code = MO#) 0.4 K/mm3 0.3-1.1 N EOSINOPHIL # (test code = EO#) 0.0 K/mm3 0.0-0.4 N BASOPHIL # (test code = BA#) 0.0 K/mm3 0.0-0.1 N NUCLEATED RBC # (test code = NRBC#) 0.0 K/mm3 0.0-0.1 N MANUAL DIFF REQUIRED (test c ode = MDIFF) NO DIFF/SCN CRITERIA GLUCOSE BEDSIDE [id number] 05:30:00* Test Item Value Reference Range Interpretation Comme nts GLUCOSE BEDSIDE TESTING (radha t code = GLUBED) 152 mg/dL 70-110 H BASIC METABOLIC [id number] 05:28:00* Test Item Value Reference Range Interpretation Comme nts SODIUM (test code = NA) 139 mmol/L 134-147 N POTASSIUM (test code = K) 4.5 mmol/L 3.4-5.0 N CHLORIDE (test code = CL) 102 mmol/L 100-108 N CARBON DIOXIDE (test code = CO2) 34 mmol/L 21-32 H ANION GAP (test code = GAP) 3.0 GAP calc 4.0-15.0 L GLUCOSE (test code = GLU) 155 MG/DL 70-110 H BLOOD UREA NITROGEN (test code = BUN) 22 MG/DL 7-18 H GLOMERULAR FILTRATION RATE (test code = GFR) >=60 max estimate estGFR >60 CREATININE (test code = CREAT) 0.6 MG/DL 0.6-1.0 N CALCIUM (test code = CA) 8.3 MG/DL 8.5-10.1 L LACTIC DEHYDROGENASE(LDH)2020-12-30 05:28:00* Test Item Value Reference Range Interpretation Comme nts LACTIC DEHYDROGENASE(LDH) (t est code = LDH) 310 Unit/L 84-246 H [id number] 05:28:00* Test Item Value Reference Range Interpretation Comme nts FERRITIN (test code = WOOD) 227.4 NG/ML 3.0-105.0 H [id number] 05:07:00* Test Item Value Reference Range Interpretation Comme nts D-DIMER (test code = DDIMER) 552 ng/mLFEU 215-500 HH C REACTIVE [id number] 04:59:00* Test Item Value Reference Range Interpretation Comme nts C REACTIVE PROTEIN (test cod e = CRP) 18.800 MG/DL 0.000-0.3 H BASIC METABOLIC [id number] 04:58:00* Test Item Value Reference Range Interpretation Comme nts SODIUM (test code = NA) 139 mmol/L 134-147 N POTASSIUM (test code = K) 4.5 mmol/L 3.4-5.0 N CHLORIDE (test code = CL) 102 mmol/L 100-108 N CARBON DIOXIDE (test code = CO2) 34 mmol/L 21-32 H ANION GAP (test code = GAP) 3.0 GAP calc 4.0-15.0 L GLUCOSE (test code = GLU) 155 MG/DL 70-110 H BLOOD UREA NITROGEN (test co de = BUN) 22 MG/DL 7-18 H GLOMERULAR FILTRATION RATE ( test code = GFR) estGFR >60 CREATININE (test code = CREAT) MG/DL 0.6-1.0 CALCIUM (test code = CA) 8.3 MG/DL 8.5-10.1 L LACTIC DEHYDROGENASE(LDH)2020-12-30 04:58:00* Test Item Value Reference Range Interpretation Comme [facility] LACTIC DEHYDROGENASE(LDH) (t est code = LDH) Unit/L 84-246 [id number] 04:58:00* Test Item Value Reference Range Interpretation Comme [facility] FERRITIN (test code = WOOD) NG/ML 3.0-105.0 ARTERIAL BLOOD [id number] 23:44:00* Test Item Value Reference Range Interpretation Comme [facility] ARTERIAL BLOOD GAS PH (test code = PHA) 7.34 pH units 7.35-7.45 L ARTERIAL BLOOD GAS PCO2 (test code = PCO2A) 66 mmHg 35-45 H ARTERIAL BLOOD GAS PO2 (test code = PO2A) 74 mmHg 80-100 L BICARBONATE TOTAL HCO3 (test code = HCO3) 34.6 mmol/L 22.0-26.0 H BASE EXCESS (test code = ADDISON) 6.3 mmol/L -3.0-3.0 H ABG O2 SATURATION (test code = SATA) 94 % 90-100 N FIO2 (test code = FIO2A) 70 % (calc) 21-100 N ABG VENT MODE (test code = MODEA) BiPAP Descript Vent Mode ABG PEEP (test code = PEEPA) 8.0 cm H20 0.0-99.9 ABG SITE (test code = SITEA) Right Radial ARTKIT DESCRIPTION MODIFIED TOSHA'S (test code = MODALL) Yes Circ.CHK POSITIVE PaO2/[id number] 23:44:00* Test Item Value Reference Range Interpretation Comme [facility] PaO2/FiO2 (test code = [id number]) mm/Hg See_Comment [Automated [employer] ge] The system which generated this result transmitted reference range: 200. The reference range was not used to interpret this result as normal/abnormal. ARTERIAL BLOOD [id number] 23:44:00* Test Item Value Reference Range Interpretation Comme [facility] ARTERIAL BLOOD GAS PH (test code = PHA) 7.34 pH units 7.35-7.45 L ARTERIAL BLOOD GAS PCO2 (test code = PCO2A) 66 mmHg 35-45 H ARTERIAL BLOOD GAS PO2 (test code = PO2A) 74 mmHg 80-100 L BICARBONATE TOTAL HCO3 (test code = HCO3) 34.6 mmol/L 22.0-26.0 H BASE EXCESS (test code = ADDISON) 6.3 mmol/L -3.0-3.0 H ABG O2 SATURATION (test code = SATA) 94 % 90-100 N FIO2 (test code = FIO2A) 70 % (calc) 21-100 N ABG VENT MODE (test code = MODEA) BiPAP Descript Vent Mode ABG PEEP (test code = PEEPA) 8.0 cm H20 0.0-99.9 ABG SITE (test code = SITEA) Right Radial ARTKIT DESCRIPTION MODIFIED TOSHA'S (test code = MODALL) Yes Circ.CHK POSITIVE PaO2/[id number] 23:44:00* Test Item Value Reference Range Interpretation Comme [facility] PaO2/FiO2 (test code = [id number]) 105.7 mm/Hg See_Comment L [Automated mess age] The system which generated this result transmitted reference range: 200. The reference range was not used to interpret this result as normal/abnormal. GLUCOSE BEDSIDE [id number] 23:13:00* Test Item Value Reference Range Interpretation Comme [facility] GLUCOSE BEDSIDE TESTING (radha t code = GLUBED) 133 mg/dL 70-110 H ARTERIAL BLOOD [id number] 20:44:00* Test Item Value Reference Range Interpretation Comme [facility] ARTERIAL BLOOD GAS PH (test code = PHA) 7.28 pH units 7.35-7.45 L ARTERIAL BLOOD GAS PCO2 (test code = PCO2A) 75 mmHg 35-45 HH ARTERIAL BLOOD GAS PO2 (test code = PO2A) 71 mmHg 80-100 L BICARBONATE TOTAL HCO3 (test code = HCO3) 34.9 mmol/L 22.0-26.0 H BASE EXCESS (test code = ADDISON) 5.3 mmol/L -3.0-3.0 H ABG O2 SATURATION (test code = SATA) 92 % 90-100 N FIO2 (test code = FIO2A) 70 % (calc) 21-100 N ABG VENT MODE (test code = MODEA) BiPAP Descript Vent Mode ABG SITE (test code = SITEA) Right Radial ARTKIT DESCRIPTION MODIFIED TOSHA'S (test code = MODALL) Yes Circ.CHK POSITIVE PaO2/[id number] 20:44:00* Test Item Value Reference Range Interpretation Comme [facility] PaO2/FiO2 (test code = [id number]) 101.4 mm/Hg See_Comment L [Automated mess age] The system which generated this result transmitted reference range: 200. The reference range was not used to interpret this result as normal/abnormal. ARTERIAL BLOOD [id number] 20:44:00* Test Item Value Reference Range Interpretation Comme [facility] ARTERIAL BLOOD GAS PH (test code = PHA) 7.28 pH units 7.35-7.45 L ARTERIAL BLOOD GAS PCO2 (test code = PCO2A) 75 mmHg 35-45 HH ARTERIAL BLOOD GAS PO2 (test code = PO2A) 71 mmHg 80-100 L BICARBONATE TOTAL HCO3 (test code = HCO3) 34.9 mmol/L 22.0-26.0 H BASE EXCESS (test code = ADDISON) 5.3 mmol/L -3.0-3.0 H ABG O2 SATURATION (test code = SATA) 92 % 90-100 N FIO2 (test code = FIO2A) 70 % (calc) 21-100 N ABG VENT MODE (test code = MODEA) BiPAP Descript Vent Mode ABG SITE (test code = SITEA) Right Radial ARTKIT DESCRIPTION MODIFIED TOSHA'S (test code = MODALL) Yes Circ.CHK POSITIVE PaO2/[id number] 20:44:00* Test Item Value Reference Range Interpretation Comme [facility] PaO2/FiO2 (test code = [id number]) mm/Hg See_Comment [Automated messa ge] The system which generated this result transmitted reference range: 200. The reference range was not used to interpret this result as normal/abnormal. GLUCOSE BEDSIDE [id number] 18:59:00* Test Item Value Reference Range Interpretation Comme [facility] GLUCOSE BEDSIDE TESTING (radha t code = GLUBED) 122 mg/dL 70-110 H [id number] 13:48:00* Test Item Value Reference Range Interpretation Comme [facility] GLYCOSYLATED HEMOGLOBIN (HA1 C) (test code = GLYHGB) 5.9 % A1C 0.0-5.7 H ESTIMATED AVERAGE GLUCOSE (t est code = EAG) 123 MG/DLest CBC W/AUTO [id number] 12:38:00* Test Item Value Reference Range Interpretation Comme nts WHITE BLOOD CELL (test code = WBC) 10.8 K/mm3 3.5-11.0 N RED BLOOD CELL (test code = RBC) 4.77 M/mm3 4.70-6.10 N HEMOGLOBIN (test code = HGB) 13.0 G/DL 10.4-14.9 N HEMATOCRIT (test code = HCT) 42.9 % 31.5-44.1 N MEAN CELL VOLUME (test code = MCV) 89.9 Fl 84.5-98.6 N MEAN CELL HGB (test code = MCH) 27.3 pg 27.0-34.2 N MEAN CELL HGB CONCETRATION ( test code = MCHC) 30.3 G/DL 31.5-34.0 L RED CELL DISTRIBUTION WIDTH (test code = RDW) 14.6 SD 11.5-14.5 H PLATELET COUNT (test code = PLT) 185 K/mm3 150-450 N MEAN PLATELET VOLUME (test c ode = MPV) 10.20 fL 7.0-10.5 N MANUAL DIFF REQUIRED (test c ode = MDIFF) YES DIFF/SCN CRITERIA WBC [id number] 12:38:00* Test Item Value Reference Range Interpretation Comme nts SEGMENTED NEUTROPHILS (test code = SEG) 68 % 40-75 N BAND NEUTROPHIL (test code = BAND) 22 % 0-8 H LYMPHOCYTE (test code = LYMPH) 6 % 18.7-40.6 L ATYPICAL LYMPH (test code = ALYMPH) 2 % 0-0 H MONOCYTE (test code = MON) 2 % 3.8-11.4 L NUCLEATED RED BLOOD CELL (test code = NRBC) 1 #/100WBC 0-0 H ANISOCYTOSIS (test code = ANISO) NORMAL NONE PLATELET ESTIMATE (test code = PLTEST) ADEQUATE THOUSAND ADEQUATE PLATELET MORPHOLOGY (test code = PLTMORPH) NORMAL CBC W/AUTO [id number] 12:37:00* Test Item Value Reference Range Interpretation Comme nts WHITE BLOOD CELL (test code = WBC) 10.8 K/mm3 3.5-11.0 N RED BLOOD CELL (test code = RBC) 4.77 M/mm3 4.70-6.10 N HEMOGLOBIN (test code = HGB) 13.0 G/DL 10.4-14.9 N HEMATOCRIT (test code = HCT) 42.9 % 31.5-44.1 N MEAN CELL VOLUME (test code = MCV) 89.9 Fl 84.5-98.6 N MEAN CELL HGB (test code = MCH) 27.3 pg 27.0-34.2 N MEAN CELL HGB CONCETRATION ( test code = MCHC) 30.3 G/DL 31.5-34.0 L RED CELL DISTRIBUTION WIDTH (test code = RDW) 14.6 SD 11.5-14.5 H PLATELET COUNT (test code = PLT) 185 K/mm3 150-450 N MEAN PLATELET VOLUME (test c ode = MPV) 10.20 fL 7.0-10.5 N MANUAL DIFF REQUIRED (test c ode = MDIFF) YES DIFF/SCN CRITERIA WBC [id number] 12:37:00* Test Item Value Reference Range Interpretation Comme nts SEGMENTED NEUTROPHILS (test code = SEG) % 40-75 LYMPHOCYTE (test code = LYMPH) % 18.7-40.6 CBC W/AUTO [id number] 12:37:00* Test Item Value Reference Range Interpretation Comme nts WHITE BLOOD CELL (test code = WBC) 10.8 K/mm3 3.5-11.0 N RED BLOOD CELL (test code = RBC) 4.77 M/mm3 4.70-6.10 N HEMOGLOBIN (test code = HGB) 13.0 G/DL 10.4-14.9 N HEMATOCRIT (test code = HCT) 42.9 % 31.5-44.1 N MEAN CELL VOLUME (test code = MCV) 89.9 Fl 84.5-98.6 N MEAN CELL HGB (test code = MCH) 27.3 pg 27.0-34.2 N MEAN CELL HGB CONCETRATION ( test code = MCHC) 30.3 G/DL 31.5-34.0 L RED CELL DISTRIBUTION WIDTH (test code = RDW) 14.6 SD 11.5-14.5 H PLATELET COUNT (test code = PLT) 185 K/mm3 150-450 N MEAN PLATELET VOLUME (test c ode = MPV) 10.20 fL 7.0-10.5 N MANUAL DIFF REQUIRED (test c ode = MDIFF) YES DIFF/SCN CRITERIA WBC [id number] 12:37:00* Test Item Value Reference Range Interpretation Comme nts SEGMENTED NEUTROPHILS (test code = SEG) % 40-75 LYMPHOCYTE (test code = LYMPH) % 18.7-40.6 COMPREHENSIVE METABOLIC [id number] 12:27:00* Test Item Value Reference Range Interpretation Comme nts SODIUM (test code = NA) 136 mmol/L 134-147 N POTASSIUM (test code = K) 4.2 mmol/L 3.4-5.0 N CHLORIDE (test code = CL) 99 mmol/L 100-108 L CARBON DIOXIDE (test code = CO2) 33 mmol/L 21-32 H ANION GAP (test code = GAP) 4.0 GAP calc 4.0-15.0 N GLUCOSE (test code = GLU) 156 MG/DL 70-110 H BLOOD UREA NITROGEN (test code = BUN) 19 MG/DL 7-18 H GLOMERULAR FILTRATION RATE (test code = GFR) >=60 max estimate estGFR >60 CREATININE (test code = CREAT) 0.9 MG/DL 0.6-1.0 N TOTAL PROTEIN (test code = PROT) 7.2 G/DL 6.4-8.2 N ALBUMIN (test code = ALB) 2.5 G/DL 3.4-5.0 L GLOBULIN (test code = GLOB) 4.7 GM/dL ALBUMIN/GLOBULIN RATIO (test code = A/G) 0.5 RATIO 1.2-2.2 L CALCIUM (test code = CA) 8.1 MG/DL 8.5-10.1 L BILIRUBIN TOTAL (test code = BILT) 0.90 MG/DL 0.2-1.2 N SGOT/AST (test code = AST) 36 Unit/L 15-37 N SGPT/ALT (test code = ALT) 30 Unit/L 12-78 N ALKALINE PHOSPHATASE TOTAL (test code = ALKP) 51 Unit/L 45-117 N GLUCOSE BEDSIDE [id number] 12:13:00* Test Item Value Reference Range Interpretation Comme nts GLUCOSE BEDSIDE TESTING (radha t code = GLUBED) 149 mg/dL 70-110 H CBC W/AUTO [id number] 12:12:00* Test Item Value Reference Range Interpretation Comme nts WHITE BLOOD CELL (test code = WBC) 10.8 K/mm3 3.5-11.0 N RED BLOOD CELL (test code = RBC) 4.77 M/mm3 4.70-6.10 N HEMOGLOBIN (test code = HGB) 13.0 G/DL 10.4-14.9 N HEMATOCRIT (test code = HCT) 42.9 % 31.5-44.1 N MEAN CELL VOLUME (test code = MCV) 89.9 Fl 84.5-98.6 N MEAN CELL HGB (test code = MCH) 27.3 pg 27.0-34.2 N MEAN CELL HGB CONCETRATION ( test code = MCHC) 30.3 G/DL 31.5-34.0 L RED CELL DISTRIBUTION WIDTH (test code = RDW) SD 11.5-14.5 H PLATELET COUNT (test code = PLT) 185 K/mm3 150-450 N MEAN PLATELET VOLUME (test c ode = MPV) fL 7.0-10.5 N NEUTROPHIL % (test code = NT%) % 40-76 H IMMATURE GRANULOCYTE % (test code = IG%) % 0.0-5.0 N LYMPHOCYTE % (test code = LY%) % 20.5-51.1 L MONOCYTE % (test code = MO%) % 1.7-9.3 N EOSINOPHIL % (test code = EO%) % 0.0-6.0 N BASOPHIL % (test code = BA%) % 0.0-2.0 N NUCLEATED RBC % (test code = NRBC%) /100WBC% 0.0-1.0 N NEUTROPHIL # (test code = NT#) K/mm3 1.8-7.6 H IMMATURE GRANULOCYTE # (test code = IG#) x10 3/uL 0.00-0.03 H LYMPHOCYTE # (test code = LY#) K/mm3 0.6-3.2 L MONOCYTE # (test code = MO#) K/mm3 0.3-1.1 N EOSINOPHIL # (test code = EO#) K/mm3 0.0-0.4 N BASOPHIL # (test code = BA#) K/mm3 0.0-0.1 N NUCLEATED RBC # (test code = NRBC#) K/mm3 0.0-0.1 N MANUAL DIFF REQUIRED (test c ode = MDIFF) DIFF/SCN CRITERIA GLUCOSE BEDSIDE [id number] 08:22:00* Test Item Value Reference Range Interpretation Comme nts GLUCOSE BEDSIDE TESTING (radha t code = GLUBED) 103 mg/dL 70-110 N GLUCOSE BEDSIDE [id number] 20:27:00* Test Item Value Reference Range Interpretation Comme nts GLUCOSE BEDSIDE TESTING (radha t code = GLUBED) 169 mg/dL 70-110 H GLUCOSE BEDSIDE [id number] 16:42:00* Test Item Value Reference Range Interpretation Comme nts GLUCOSE BEDSIDE TESTING (radha t code = GLUBED) 188 mg/dL 70-110 H GLUCOSE BEDSIDE [id number] 11:46:00* Test Item Value Reference Range Interpretation Comme nts GLUCOSE BEDSIDE TESTING (radha t code = GLUBED) 147 mg/dL 70-110 H THROMBOPLASTIN TIME [id number] 10:50:00* Test Item Value Reference Range Interpretation Comme nts THROMBOPLASTIN TIME PARTIAL (test code = PTT) 38.1 SECONDS 26-35 H GLUCOSE BEDSIDE [id number] 07:56:00* Test Item Value Reference Range Interpretation Comme nts GLUCOSE BEDSIDE TESTING (radha t code = GLUBED) 184 mg/dL 70-110 H GLUCOSE BEDSIDE [id number] 23:43:00* Test Item Value Reference Range Interpretation Comme nts GLUCOSE BEDSIDE TESTING (radha t code = GLUBED) 172 mg/dL 70-110 H PROTHROMBIN [id number] 20:34:00* Test Item Value Reference Range Interpretation Comme nts PT PATIENT (test code = PTP) 14.6 SECONDS 9.3-12.9 H INTERNATIONAL NORMAL RATIO (test code = INR) 1.30 INR Unit 0.8-1.2 H THROMBOPLASTIN TIME [id number] 20:34:00* Test Item Value Reference Range Interpretation Comme nts THROMBOPLASTIN TIME PARTIAL (test code = PTT) >400 SECONDS 26-35 HH Previously repor layla result: RESULT CLARITZA SECONDSEdited by: GERTRUDISNMT on 12/27/20~~~~~~~ ~~~~~~~~~~~~~~~~~~~~ ~~~~~~~~~~~~~ This is a CORRECTED REPORT - CTA CHEST FOR [id number] 20:23:00 [facility] 1965 Sex: F Name: LORI DELUCA [facility] : 1965 Age/S: 55 / F [id number] Unit #: [id number] Loc: [place] [address] Phys: Nancie Brandon MD Acct: [id number] Dis Date: Status: ADM INPHONE #: [phone] Exam Date: 12/27/20202004 FAX #: Reason: SOB; elevated D-dimer with COVID PNA EXAMS: CPT: [id number] [id number] EXAM: CTA CHEST WITH CONTRAST. INDICATION: Covid pne umonia, shortness of breath COMPARISON: None available TECHNIQUE: Axial CTA imaging of the chest was obtained with administration of intravenous contrast. Coronal and sagittal MIP images were submitted for review. IV contrast: 100 mL of Isovue-370 DLP: 748.43 mGy-cm FINDINGS: No filling defect is identified within the pulmonary vasculature. The main pulmonary artery is normal in size. The thoracic aorta and great vessels are normal. The heart size is normal. No pericardial effusion. There are patchy parenchymal opacities throughout both lungs consistent with multifocal pneumonia. No suspicious pulmonary nodules are identified. The trachea and central airways are patent. No mediastinal, hilar, supraclavicular, or axillary adenopathy is identified. The thyroid gland is normal in appearance. The upper abdomen is unremarkable. No acute osseous abnormality of the thoracic spine. IMPRESSION:No pulmonary embolus is identified. Patchy parenchymal opacities throughout both lungs consistent with multifocal pneumonia. LOCATION: B2 This CT exam was performed according to our departmental dose optimization program, which includes automated exposure control, adjustment of the mA and or kV according to patient size and/or use of iterative reconstruction technique. PAGE 1 Signed Report (CONTINUED) Name: LORI DELUCA [facility] : 1965 Age/S: 55 / F [id number] Unit #: [id number] Loc: [place] [address] Phys: Nancie Brandon MD Acct: [id number] Dis Date: Status:ADM IN PHONE #: [phone] Exam Date: 12/27/20202004 FAX #: Reason: SOB; elevated D-dimer with COVID PNA EXAMS: CPT: [id number] [place] [id number] (Continued) at 2022 Reported and signed by: Janis Rendon M.D. CC: Nancie Brandon MD Technologist:Valentina Ching, RT(R); Tif CTDI: DLP: Trnscb Date/Time: 12/27/2020(2022) 16 Orig Print D/T: S: 12/27/2020 (2025) PAGE 2 Signed ReportPROTHROMBIN [id number] 20:14:00* Test Item Value Reference Range Interpretation Comme nts PT PATIENT (test code = PTP) 14.6 SECONDS 9.3-12.9 H INTERNATIONAL NORMAL RATIO (test code = INR) 1.30 INR Unit 0.8-1.2 H THROMBOPLASTIN TIME [id number] 20:14:00* Test Item Value Reference Range Interpretation Comme nts THROMBOPLASTIN TIME PARTIAL (test code = PTT) RESULT CLARITZA SECONDS 26-35 L HEPATIC FUNCTION [id number] 19:59:00* Test Item Value Reference Range Interpretation Comme nts TOTAL PROTEIN (test code = PROT) 8.5 G/DL 6.4-8.2 H ALBUMIN (test code = ALB) 3.1 G/DL 3.4-5.0 L BILIRUBIN TOTAL (test code = BILT) 1.20 MG/DL 0.2-1.2 N BILIRUBIN DIRECT (test code = BILD) 0.50 MG/DL 0.00-0.30 H BILIRUBIN INDIRECT (test cod e = BILIND) 0.70 MG/DL 0.2-1.2 N SGOT/AST (test code = AST) 56 Unit/L 15-37 H SGPT/ALT (test code = ALT) 40 Unit/L 12-78 N ALKALINE PHOSPHATASE TOTAL ( test code = ALKP) 71 Unit/L 45-117 N Comment: Prior to remdesivir [id number] 19:59:00* Test Item Value Reference Range Interpretation Comme nts TROPONIN-I (test code = TROPI) 0.039 NG/ML 0.000-0.045 N Negative: </= 0. 045 Positive: >/= 0.046 Correlation with serial results, other cardiac markers, and clinical findings is necessary to determine the clinical significance of this result. Quantitative results using different methodologies should not be compared to one another as numerical results may varyby method. Completed by Nursing: NOC REACTIVE [id number] 19:59:00* Test Item Value Reference Range Interpretation Comme nts C REACTIVE PROTEIN (test cod e = CRP) 17.000 MG/DL 0.000-0.3 H UR HCG [id number] 19:49:00* Test Item Value Reference Range Interpretation Comme nts UR HCG QUAL (test code = HCGQLU) NEGATIVE NEGATIVE ARTERIAL BLOOD [id number] 19:23:00* Test Item Value Reference Range Interpretation Comme nts ARTERIAL BLOOD GAS PH (test code = PHA) 7.39 pH units 7.35-7.45 N ARTERIAL BLOOD GAS PCO2 (test code = PCO2A) 45 mmHg 35-45 N ARTERIAL BLOOD GAS PO2 (test code = PO2A) 65 mmHg 80-100 L BICARBONATE TOTAL HCO3 (test code = HCO3) 26.8 mmol/L 22.0-26.0 H BASE EXCESS (test code = ADDISON) 1.4 mmol/L -3.0-3.0 N ABG O2 SATURATION (test code = SATA) 93 % 90-100 N FIO2 (test code = FIO2A) 30 % (calc) 21-100 N ABG VENT MODE (test code = MODEA) Nasal Cannula Descript Vent Mode ABG SITE (test code = SITEA) Left Radial ARTKIT DESCRIPTION MODIFIED TOSHA'S (test code = MODALL) Yes Circ.CHK POSITIVE PaO2/[id number] 19:23:00* Test Item Value Reference Range Interpretation Comme nts PaO2/FiO2 (test code = [id number]) mm/Hg See_Comment [Automated messa ge] The system which generated this result transmitted reference range: 200. The reference range was not used to interpret this result as normal/abnormal. ARTERIAL BLOOD [id number] 19:23:00* Test Item Value Reference Range Interpretation Comme nts ARTERIAL BLOOD GAS PH (test code = PHA) 7.39 pH units 7.35-7.45 N ARTERIAL BLOOD GAS PCO2 (test code = PCO2A) 45 mmHg 35-45 N ARTERIAL BLOOD GAS PO2 (test code = PO2A) 65 mmHg 80-100 L BICARBONATE TOTAL HCO3 (test code = HCO3) 26.8 mmol/L 22.0-26.0 H BASE EXCESS (test code = ADDISON) 1.4 mmol/L -3.0-3.0 N ABG O2 SATURATION (test code = SATA) 93 % 90-100 N FIO2 (test code = FIO2A) 30 % (calc) 21-100 N ABG VENT MODE (test code = MODEA) Nasal Cannula Descript Vent Mode ABG SITE (test code = SITEA) Left Radial ARTKIT DESCRIPTION MODIFIED TOSHA'S (test code = MODALL) Yes Circ.CHK POSITIVE PaO2/[id number] 19:23:00* Test Item Value Reference Range Interpretation Comme [facility] PaO2/FiO2 (test code = [id number]) 216.7 mm/Hg See_Comment [Automated Eleven James] The system which generated this result transmitted reference range: 200. The reference range was not used to interpret this result as normal/abnormal. LACTIC [id number] 18:18:00* Test Item Value Reference Range Interpretation Comme nts LACTIC ACID (test code = LACT) 1.6 mmol/L 0.4-2.0 N BASIC METABOLIC [id number] 18:18:00* Test Item Value Reference Range Interpretation Comme nts SODIUM (test code = NA) 134 mmol/L 134-147 N POTASSIUM (test code = K) 4.0 mmol/L 3.4-5.0 N CHLORIDE (test code = CL) 97 mmol/L 100-108 L CARBON DIOXIDE (test code = CO2) 29 mmol/L 21-32 N ANION GAP (test code = GAP) 8.0 GAP calc 4.0-15.0 N GLUCOSE (test code = GLU) 151 MG/DL 70-110 H BLOOD UREA NITROGEN (test co de = BUN) 22 MG/DL 7-18 H GLOMERULAR FILTRATION RATE ( test code = GFR) 55 estGFR >60 L CREATININE (test code = CREAT) 1.1 MG/DL 0.6-1.0 H CALCIUM (test code = CA) 8.8 MG/DL 8.5-10.1 N CBC W/AUTO [id number] 18:06:00* Test Item Value Reference Range Interpretation Comme nts WHITE BLOOD CELL (test code = WBC) 10.3 K/mm3 3.5-11.0 N RED BLOOD CELL (test code = RBC) 5.70 M/mm3 4.70-6.10 N HEMOGLOBIN (test code = HGB) 15.4 G/DL 10.4-14.9 H HEMATOCRIT (test code = HCT) 49.6 % 31.5-44.1 H MEAN CELL VOLUME (test code = MCV) 87.0 Fl 84.5-98.6 N MEAN CELL HGB (test code = MCH) 27.0 pg 27.0-34.2 N MEAN CELL HGB CONCETRATION (test code = MCHC) 31.0 G/DL 31.5-34.0 L RED CELL DISTRIBUTION WIDTH (test code = RDW) 14.8 SD 11.5-14.5 H PLATELET COUNT (test code = PLT) 191 K/mm3 150-450 N MEAN PLATELET VOLUME (test c ode = MPV) 10.50 fL 7.0-10.5 N NEUTROPHIL % (test code = NT%) 85.6 % 40-76 H IMMATURE GRANULOCYTE % (test code = IG%) 1.7 % 0.0-5.0 N LYMPHOCYTE % (test code = LY%) 9.1 % 20.5-51.1 L MONOCYTE % (test code = MO%) 3.2 % 1.7-9.3 N EOSINOPHIL % (test code = EO%) 0.1 % 0.0-6.0 N BASOPHIL % (test code = BA%) 0.3 % 0.0-2.0 N NUCLEATED RBC % (test code = NRBC%) 0.3 /100WBC% 0.0-1.0 N NEUTROPHIL # (test code = NT#) 8.8 K/mm3 1.8-7.6 H IMMATURE GRANULOCYTE # (test code = IG#) 0.17 x10 3/uL 0.00-0.03 H LYMPHOCYTE # (test code = LY#) 0.9 K/mm3 0.6-3.2 N MONOCYTE # (test code = MO#) 0.3 K/mm3 0.3-1.1 N EOSINOPHIL # (test code = EO#) 0.0 K/mm3 0.0-0.4 N BASOPHIL # (test code = BA#) 0.0 K/mm3 0.0-0.1 N NUCLEATED RBC # (test code = NRBC#) 0.0 K/mm3 0.0-0.1 N MANUAL DIFF REQUIRED (test c ode = MDIFF) NO DIFF/SCN CRITERIA Notes Date/Time Note Provider Source 2021-01-06 15:29:00 [id number] 1OsQQp/kSkTY6UnqLHdSK2WCscy1c4ZO919031-93-71X21:2 9:00 [facility] ([facility])Infectious Dis. Progress NoteREPORT#:[id number] REPORT STATUS: SignedDATE:01/06/21 TIME:152 PATIENT: LORI DELUCA UNIT #: [id number]#: [id number] [address] [birth year] AGE: 55 SEX: F ATTEND: Alfred Escobedo [facility] AUTHOR: Annalisa Hernandez * ALL edits or amendments must be made on the electronic/computer document * SubjectiveChief Complaint:PneumoniaHPI:Patient afebrile. Sitting up comfortably in chair and states she is ready to go home. WBC decreasing and CRP within normal limits. Review of SystemsConstitutional:Denies: chills, fatigue, fever, generalized weakness. Objective GeneralVS/I O:Last Documented: Result Date Time Pulse Ox 94 01/06 1523 B/P 99/64 01/06 1523 B/P Mean 75.2 01/06 1523 O2 Delivery Nasal cannula 01/06 152 Temp 36.4 01/06 1523 Pulse 68 01/06 1523 Resp 20 01/06 1523 FiO2 40 01/06 0742 O2 Flow Rate 5 01/06 0742 Vital Signs Date Temp Pulse Resp B/P B/P Mean Pulse Ox FiO2 01/05-01/06 34.7-36.6 58-81 18-20 99-129/63-78 75.2-94.7 92-97 40 24 hour I O ending at 0700: 01/06 0700 01/05 1900 Intake Total 360 Output Total Balance 360 Intake, Oral 360 Number 1 Bowel Movements PATIENT WEIGHT: Weight (lb): 400Weight (oz): 2.22Weight (kg): 181.437 Physical ExamGeneral appearance: alert, awake, orientedHead/Eyes: atraumatic, clear cornea, normocephalicNeck: full range of motion, non-tenderCardiovascular: regular rate rhythmAbdomen: non-tender, soft, no guardingExtremities: moves all, normal capillary refill, no clubbing, no cyanosis Diagnosis, Assessment PlanFree Text A P:Laboratory Tests 01/05/21 0600:[Embedded Image Not Available]Plt Count TNP Assessment:1. Pneumonia with covid-19 s/p CV plasma and remdesivir.2. Acute respiratory failure with hypoxia.3. Morbid obesity. Plan:1. Pt completed treatment with ceftriaxone.2. Weaning O2 as tolerated.3. Patient can be discharged from an ID standpoint in coordination with the primary and pulmonary team for at-home oxygen and steroids.4. ID will sign off -- thank you for this consult. at 1534 RPT #: [id number] OF REPORT PRProgress [id number]:29:00L.[id number] able for patient icmkKLPWFRFWTIHXKP7442-56-26P43:34:51 [facility] 2021-01-06 15:29:00 [id number] l28LFABHiY3KIueyt2e/VeTvhEf3l h26jvOHNhUOYJ4DXKX3C2JjPCxyDKABCm51726-11-30L87:2 9:00 [facility] ([facility])Infectious Dis. Progress NoteREPORT#:[id number] REPORT STATUS: SignedDATE:01/06/21 TIME:152 PATIENT: LORI DELUCA UNIT #: [id number]#: [id number] ROOM[facility]BED: [facility]DOB: [birth year] AGE: 55 SEX: F ATTEND: Alfred Escobedo [facility] AUTHOR: Annalisa Hernandez * ALL edits or amendments must be made on the electronic/computer document * Annalisa Hernandez 01/06/21 1529:SubjectiveChief Complaint:PneumoniaHPI:Patient afebrile. Sitting up comfortably in chair and states she is ready to go home. WBC decreasing and CRP within normal limits. Review of SystemsConstitutional:Denies: chills, fatigue, fever, generalized weakness. Objective GeneralVS/I O:Last Documented: Result Date Time Pulse Ox 94 01/06 1523 B/P 99/64 01/06 1523 B/P Mean 75.2 01/06 1523 O2 Delivery Nasal cannula 01/06 1523 Temp 36.4 01/06 1523 Pulse 68 01/06 1523 Resp 20 01/06 1523 FiO2 40 01/06 0742 O2 Flow Rate 5 01/06 0742 Vital Signs Date Temp Pulse Resp B/P B/P Mean Pulse Ox FiO2 01/05-01/06 34.7-36.6 58-81 18-20 99-129/63-78 75.2-94.7 92-97 40 24 hour I O ending at 0700: 01/06 0700 01/05 1900 Intake Total 360 Output Total Balance 360 Intake, Oral 360 Number 1 Bowel Movements PATIENT WEIGHT: Weight (lb): 400Weight (oz): 2.22Weight (kg): 181.437 Physical ExamGeneral appearance: alert, awake, orientedHead/Eyes: atraumatic, clear cornea, normocephalicNeck: full range of motion, non-tenderCardiovascular: regular rate rhythmAbdomen: non-tender, soft, no guardingExtremities: moves all, normal capillary refill, no clubbing, no cyanosis Diagnosis, Assessment PlanFree Text A P:Laboratory Tests 01/05/21 0600:[Embedded Image Not Available]Plt Count TNP Assessment:1. Pneumonia with covid-19 s/p CV plasma and remdesivir.2. Acute respiratory failure with hypoxia.3. Morbid obesity. Plan:1. Pt completed treatment with ceftriaxone.2. Weaning O2 as tolerated.3. Patient can be discharged from an ID standpoint in coordination with the primary and pulmonary team for at-home oxygen and steroids.4. ID will sign off -- thank you for this consult. Rudy Aguilar 01/06/21 1742:AttestationsAttestation needed: supervising physician Physician AttestationAgree w/findings plan:Agree with the findings and plan as documented by TERE Hernandez. Pt with morbid obesity who developed severe covid-19. She has markedly improved and her O2 requirements have significantly decreased. Continue steroids per pulmonary. Willsign off. Please call us if there are any questions. at 1534 RPT #: [id number] OF REPORT PRProgress [id number]:29:00L.OXZP46658709-4106CZAhnox able for patient dpncBQBOXYAXMFOZQG1554-59-39W62:44:14 [facility] 2021-01-06 15:29:00 [id number] UgvTlF4mgyC26SxRrAojA8i4lqIRD W5n7PH5vdG+n0xuHPbzjiq/gMiP9sRd0t54074-27-85A45:2 9:00 [facility] ([facility])Infectious Dis. Progress NoteREPORT#:[id number] REPORT STATUS: SignedDATE:01/06/21 TIME:1529 PATIENT: LORI DELUCA UNIT #: [id number]#: [id number] ROOM[facility]BED: [facility]DOB: [birth year] AGE: 55 SEX: F ATTEND: Alfred Escobedo [facility] AUTHOR: Annalisa Hernandez * ALL edits or amendments must be made on the electronic/computer document * Annalisa Hernandez 01/06/21 1529:SubjectiveChief Complaint:PneumoniaHPI:Patient afebrile. Sitting up comfortably in chair and states she is ready to go home. WBC decreasing and CRP within normal limits. Review of SystemsConstitutional:Denies: chills, fatigue, fever, generalized weakness. Objective GeneralVS/I O:Last Documented: Result Date Time Pulse Ox 94 01/06 1523 B/P 99/64 01/06 1523 B/P Mean 75.2 01/06 1523 O2 Delivery Nasal cannula 01/06 1523 Temp 36.4 01/06 1523 Pulse 68 01/06 1523 Resp 20 01/06 1523 FiO2 40 01/06 0742 O2 Flow Rate 5 01/06 0742 Vital Signs Date Temp Pulse Resp B/P B/P Mean Pulse Ox FiO2 01/05-01/06 34.7-36.6 58-81 18-20 99-129/63-78 75.2-94.7 92-97 40 24 hour I O ending at 0700: 01/06 0700 01/05 1900 Intake Total 360 Output Total Balance 360 Intake, Oral 360 Number 1 Bowel Movements PATIENT WEIGHT: Weight (lb): 400Weight (oz): 2.22Weight (kg): 181.437 Physical ExamGeneral appearance: alert, awake, orientedHead/Eyes: atraumatic, clear cornea, normocephalicNeck: full range of motion, non-tenderCardiovascular: regular rate rhythmAbdomen: non-tender, soft, no guardingExtremities: moves all, normal capillary refill, no clubbing, no cyanosis Diagnosis, Assessment PlanFree Text A P:Laboratory Tests 01/05/21 0600:[Embedded Image Not Available]Plt Count TNP Assessment:1. Pneumonia with covid-19 s/p CV plasma and remdesivir.2. Acute respiratory failure with hypoxia.3. Morbid obesity. Plan:1. Pt completed treatment with ceftriaxone.2. Weaning O2 as tolerated.3. Patient can be discharged from an ID standpoint in coordination with the primary and pulmonary team for at-home oxygen and steroids.4. ID will sign off -- thank you for this consult. Rudy Aguilar 01/06/21 0839:AttestationsAttestation needed: supervising physician Physician AttestationAgree w/findings plan:Agree with the findings and plan as documented by TERE Hernandez. Pt with morbid obesity who developed severe covid-19. She has markedly improved and her O2 requirements have significantly decreased. Continue steroids per pulmonary. Willsign off. Please call us if there are any questions. at 1534 at [phone] RPT #: [id number] OF REPORT PRProgress [id number]:29:00L.[id number] able for patient [id number]:44:14 [facility] 2021-01-06 13:17:00 [id number] 4pUfhqQXALANWxYnyfMtDH45XFEBw NFbZtV1GgljkAZnV0I3x+Y2DQ4leCCuoGp4609-73-28K00:1 7:00 [facility] ([facility])Pulmonology Progress NoteREPORT#:[id number] REPORT STATUS: SignedDATE:01/06/21 TIME:1317 PATIENT: LORI DELUCA UNIT #: [id number]#: [id number] [address] AGE: 55 SEX: F ATTEND: Alfred Escobedo [facility] AUTHOR: Sergio Love * ALL edits or amendments must be made on the electronic/computer document * SubjectiveChief Complaint:Comfortable on 4L/min NCNo distressUp to chair Review of Systems ROSRespiratory:Reports: TOURE (dyspnea on exertion). Denies: pleuritic pain. Cardiovascular:Reports: TOURE (dyspnea on exertion). Denies: chest pain. GI:Denies: abdominal pain. :Denies: frequency, pelvic pain. Objective GeneralVS/I O:Last Documented: Result Date Time Pulse Ox 97 01/06 1127 B/P 107/71 01/06 1127 B/P Mean 83.0 01/06 1127 O2 Delivery Nasal cannula 01/06 1127 Temp 36.6 01/06 1127 Pulse 59 01/06 1127 Resp 20 01/06 1127 FiO2 40 01/06 0742 O2 Flow Rate 5 01/06 0742 24 hour I O ending at 0700: 01/06 0700 01/05 1900 Intake Total 360 Output Total Balance 360 Intake, Oral 360 Number 1 Bowel Movements PATIENT WEIGHT: Weight (lb): 400Weight (oz): 2.22Weight (kg): 181.437 Medications:Active Meds + DC'd Last 24 HrsFamotidine 20 MG BID PO Dexamethasone 10 MG BID PO Lisinopril 20 MG DAILY PO Sertraline HCl 50 MG DAILY PO Dextrose/Water 50 ML ONCE PRN IV (CKD) Insulin Human Lispro S/SCALE AC HS SUBQ Physical ExamHead/eyes: atraumatic, normocephalicCardiovascular: normal heart sounds, normal S1/S2, regular rate rhythm, no rub, no gallopRespiratory/chest: aerating well, clear to auscultation, symmetric expansionAbdomen: soft, normal bowel soundsMusculoskeletal: full range of motionNeuro/GREEN PRIZE PACKER: alert, oriented X 3, CNII-XII intact ResultsFindings/Data:Laboratory Tests 01/06 01/06 01/05 01/05 1125 0718 2014 162 Chemistry POC Glucose (70 - 110 mg/dL) 166 H 134 H 298 H 207 H Diagnosis, Assessment PlanHospital course to date:Impressions Acute hypoxic respiratory failurePneumonia due to covid-19 infectionSleep apneaMorbid obesity Plan On 4 L/min NC, titrate and maintain oxygenation >92%CXR yesterday with improved bilateral opacitiesNIPPV PRN/QHS; refusing, S/p diamoxs/p convalescent plasma, remdesivir, AntibioticsID followingDexamethasone 10 mg BID PONeeds aggressive PT, ISGI prophylaxisSCDsFull codeOk for discharge from pulmonary stand point on remaining dexamethasone, home O2. at 1502 RPT #: [id number] OF REPORT PRProgress Efru6137-86-61J51:17:00L.UHQN49571771-9537CWXeiog able for patient lzkeDHQHBUOKMDFXNT9095-67-18D51:02:40 [facility] 2021-01-06 13:17:00 TSxwwpjulue77204470z +3ZfGtaN6wKm7LB/ZLW43y3xipDbr V2XcEwLay52WsoEMjzIgZ8uytVSFH9RxBM8804-99-77X54:1 7:00 [facility])Pulmonology Progress NoteREPORT#:[id number] REPORT STATUS: SignedDATE:01/06/21 TIME:131 PATIENT: LORI DELUCA UNIT #: [id number]#: [id number] [address] [birth year] AGE: 55 SEX: F ATTEND: Alfred Escobedo [facility] AUTHOR: Sergio Love AGACNP * ALL edits or amendments must be made on the electronic/computer document * Sergio Love 01/06/21 1317:SubjectiveChief Complaint:Comfortable on 4L/min NCNo distressUp to chair Review of Systems ROSRespiratory:Reports: TOURE (dyspnea on exertion). Denies: pleuritic pain. Cardiovascular:Reports: TOURE (dyspnea on exertion). Denies: chest pain. GI:Denies: abdominal pain. :Denies: frequency, pelvic pain. Objective GeneralVS/I O:Last Documented: Result Date Time Pulse Ox 97 01/06 1127 B/P 107/71 01/06 1127 B/P Mean 83.0 01/06 1127 O2 Delivery Nasal cannula 01/06 1127 Temp 36.6 01/06 1127 Pulse 59 01/06 1127 Resp 20 01/06 1127 FiO2 40 01/06 0742 O2 Flow Rate 5 01/06 0742 24 hour I O ending at 0700: 01/06 0700 01/05 1900 Intake Total 360 Output Total Balance 360 Intake, Oral 360 Number 1 Bowel Movements PATIENT WEIGHT: Weight (lb): 400Weight (oz): 2.22Weight (kg): 181.437 Medications:Active Meds + DC'd Last 24 HrsFamotidine 20 MG BID PO Dexamethasone 10 MG BID PO Lisinopril 20 MG DAILY PO Sertraline HCl 50 MG DAILY PO Dextrose/Water 50 ML ONCE PRN IV (CKD) Insulin Human Lispro S/SCALE AC HS SUBQ Physical ExamHead/eyes: atraumatic, normocephalicCardiovascular: normal heart sounds, normal S1/S2, regular rate rhythm, no rub, no gallopRespiratory/chest: aerating well, clear to auscultation, symmetric expansionAbdomen: soft, normal bowel soundsMusculoskeletal: full range of motionNeuro/GRE[employer]IZE PACKER: alert, oriented X 3, CNII-XII intact ResultsFindings/Data:Laboratory Tests 01/06 01/06 01/05 01/05 1125 0718 2014 162 Chemistry POC Glucose (70 - 110 mg/dL) 166 H 134 H 298 H 207 H Diagnosis, Assessment PlanHospital course to date:Impressions Acute hypoxic respiratory failurePneumonia due to covid-19 infectionSleep apneaMorbid obesity Plan On 4 L/min NC, titrate and maintain oxygenation >92%CXR yesterday with improved bilateral opacitiesNIPPV PRN/QHS; refusing, S/p diamoxs/p convalescent plasma, remdesivir, AntibioticsID followingDexamethasone 10 mg BID PONeeds aggressive PT, ISGI prophylaxisSCDsFull codeOk for discharge from pulmonary stand point on remaining dexamethasone, home O2. Daniel Tariq 01/06/21 2321:Diagnosis, Assessment PlanHospital course to date:evaluated, discussed with RENTAL SALESPERSON . discussed planAgree with above at 1502 RPT #: [id number] OF REPORT PRProgress Dmif7379-97-36J50:17:00L.HYET78961073-4268SNTtngz able for patient alggFNBCIZBQPTYPQL5878-26-94C25:21:39 [facility] 2021-01-06 13:17:00 NNocyuikvem21557934p +2OyIafZ1zXl2MG/MFQ59a5hmlHnw D0DhZvHyv38AnrAXxqGeJ7wlfEPES8BrXP3565-90-72X69:1 7:00 [facility])Pulmonology Progress NoteREPORT#:[id number] REPORT STATUS: SignedDATE:01/06/21 TIME:1316 PATIENT: LORI DELUCA UNIT #: [id number]#: [id number] [facility] [birth year] AGE: 55 SEX: F ATTEND: Alfred Escobedo [facility] AUTHOR: Sergio Love AGAANDRADE * ALL edits or amendments must be made on the electronic/computer document * Sergio Love 01/06/21 1317:SubjectiveChief Complaint:Comfortable on 4L/min NCNo distressUp to chair Review of Systems ROSRespiratory:Reports: TOURE (dyspnea on exertion). Denies: pleuritic pain. Cardiovascular:Reports: TOURE (dyspnea on exertion). Denies: chest pain. GI:Denies: abdominal pain. :Denies: frequency, pelvic pain. Objective GeneralVS/I O:Last Documented: Result Date Time Pulse Ox 97 01/06 1127 B/P 107/71 01/06 1127 B/P Mean 83.0 01/06 1127 O2 Delivery Nasal cannula 01/06 112 Temp 36.6 01/06 1127 Pulse 59 01/06 1127 Resp 20 01/06 1127 FiO2 40 01/06 0742 O2 Flow Rate 5 01/06 0742 24 hour I O ending at 0700: 01/06 0700 01/05 1900 Intake Total 360 Output Total Balance 360 Intake, Oral 360 Number 1 Bowel Movements PATIENT WEIGHT: Weight (lb): 400Weight (oz): 2.22Weight (kg): 181.437 Medications:Active Meds + DC'd Last 24 HrsFamotidine 20 MG BID PO Dexamethasone 10 MG BID PO Lisinopril 20 MG DAILY PO Sertraline HCl 50 MG DAILY PO Dextrose/Water 50 ML ONCE PRN IV (CKD) Insulin Human Lispro S/SCALE AC HS SUBQ Physical ExamHead/eyes: atraumatic, normocephalicCardiovascular: normal heart sounds, normal S1/S2, regular rate rhythm, no rub, no gallopRespiratory/chest: aerating well, clear to auscultation, symmetric expansionAbdomen: soft, normal bowel soundsMusculoskeletal: full range of motionNeuro/GRE[employer] PRIZE PACKER: alert, oriented X 3, CNII-XII intact ResultsFindings/Data:Laboratory Tests 01/06 01/06 01/05 01/05 1125 0718 2014 162 Chemistry POC Glucose (70 - 110 mg/dL) 166 H 134 H 298 H 207 H Diagnosis, Assessment PlanHospital course to date:Impressions Acute hypoxic respiratory failurePneumonia due to covid-19 infectionSleep apneaMorbid obesity Plan On 4 L/min NC, titrate and maintain oxygenation >92%CXR yesterday with improved bilateral opacitiesNIPPV PRN/QHS; refusing, S/p diamoxs/p convalescent plasma, remdesivir, AntibioticsID followingDexamethasone 10 mg BID PONeeds aggressive PT, ISGI prophylaxisSCDsFull codeOk for discharge from pulmonary stand point on remaining dexamethasone, home O2. Daniel Tariq 01/06/21 2321:Diagnosis, Assessment PlanHospital course to date:evaluated, discussed with RENTAL SALESPERSON . discussed planAgree with above at 1502 RPT #: [id number] OF REPORT PRProgress Urap2604-36-60Z69:17:00L.APVT75369288-4330GWYavfr able for patient gdriJWXFHAXEYGOLTW4376-68-18P52:21:49 [facility] 2021-01-06 13:17:00 MPypghajisg56662123d 3X1AbPrpAIow4ALNrEvKlpRbld51n GgqzvITsONWEcn1uDDK/9AQzDPH44AcWBf9247-74-28K89:1 7:00 [facility] ([facility])Pulmonology Progress NoteREPORT#:[id number] REPORT STATUS: SignedDATE:01/06/21 TIME:1317 PATIENT: LORI DELUCA UNIT #: [id number]#: [id number] [address] [birth year] AGE: 55 SEX: F ATTEND: Alfred Escobedo [facility] AUTHOR: Sergio LoveCNP * ALL edits or amendments must be made on the electronic/computer document * Sergio Love 01/06/21 1317:SubjectiveChief Complaint:Comfortable on 4L/min NCNo distressUp to chair Review of Systems ROSRespiratory:Reports: TOURE (dyspnea on exertion). Denies: pleuritic pain. Cardiovascular:Reports: TOURE (dyspnea on exertion). Denies: chest pain. GI:Denies: abdominal pain. :Denies: frequency, pelvic pain. Objective GeneralVS/I O:Last Documented: Result Date Time Pulse Ox 97 01/06 112 B/P 107/71 01/06 1127 B/P Mean 83.0 01/06 1127 O2 Delivery Nasal cannula 01/06 112 Temp 36.6 01/06 1127 Pulse 59 01/06 1127 Resp 20 01/06 1127 FiO2 40 01/06 0742 O2 Flow Rate 5 01/06 0742 24 hour I O ending at 0700: 01/06 0700 01/05 1900 Intake Total 360 Output Total Balance 360 Intake, Oral 360 Number 1 Bowel Movements PATIENT WEIGHT: Weight (lb): 400Weight (oz): 2.22Weight (kg): 181.437 Medications:Active Meds + DC'd Last 24 HrsFamotidine 20 MG BID PO Dexamethasone 10 MG BID PO Lisinopril 20 MG DAILY PO Sertraline HCl 50 MG DAILY PO Dextrose/Water 50 ML ONCE PRN IV (CKD) Insulin Human Lispro S/SCALE AC HS SUBQ Physical ExamHead/eyes: atraumatic, normocephalicCardiovascular: normal heart sounds, normal S1/S2, regular rate rhythm, no rub, no gallopRespiratory/chest: aerating well, clear to auscultation, symmetric expansionAbdomen: soft, normal bowel soundsMusculoskeletal: full range of motionNeuro/GRE[employer] PRIZE PACKER: alert, oriented X 3, CNII-XII intact ResultsFindings/Data:Laboratory Tests 01/06 01/06 01/05 01/05 1125 0718 2014 1624 Chemistry POC Glucose (70 - 110 mg/dL) 166 H 134 H 298 H 207 H Diagnosis, Assessment PlanHospital course to date:Impressions Acute hypoxic respiratory failurePneumonia due to covid-19 infectionSleep apneaMorbid obesity Plan On 4 L/min NC, titrate and maintain oxygenation >92%CXR yesterday with improved bilateral opacitiesNIPPV PRN/QHS; refusing, S/p diamoxs/p convalescent plasma, remdesivir, AntibioticsID followingDexamethasone 10 mg BID PONeeds aggressive PT, ISGI prophylaxisSCDsFull codeOk for discharge from pulmonary stand point on remaining dexamethasone, home O2. Daniel Tariq 01/06/21 2321:Diagnosis, Assessment PlanHospital course to date:evaluated, discussed with RENTAL SALESPERSON . discussed planAgree with above at 1502 at 2321 RPT #: [id number] OF REPORT PRProgress Rtyu5954-11-17H82:17:00L.FYBR75556215-4371LHGecho able for patient lgmnQJLXHLBYEGVIZI3453-46-18D59:21:49 [facility] 2021-01-06 10:55:00 LJbmqsuqqtp00173289/ 21WqyjB/1UEE0/59QhVsxZ5veE2vS PfB+FQlr6Aw/XaSADS3LZ+T3m2Vaj3HOPU9143-52-51T56:5 5:00 [facility] ([facility])[place]/Oncology Progress NoteREPORT#:[id number] REPORT STATUS: SignedDATE:01/06/21 TIME:105 PATIENT: LORI DELUCA UNIT #: [id number]#: [id number] [address] [birth year] AGE: 55 SEX: F ATTEND: Alfred Escobedo [facility] AUTHOR: Yanet Lim MD * ALL edits or amendments must be made on the electronic/computer document * SubjectiveChief Complaint:Events notedSOB improvingNo overt bleeding Objective Physical ExamVS:Vital Signs Date Temp Pulse Resp B/P B/P Mean Pulse Ox FiO2 01/05-01/06 94.5-97.5 58-81 18-20 93-129/58-78 69.9-94.7 91-97 40 Last Documented: Result Date Time Pulse Ox 94 01/06 742 FiO2 40 01/06 742 O2 Delivery Nasal cannula 01/06 742 O2 Flow Rate 5 01/06 0742 B/P 101/68 01/07 724 B/P Mean 78.9 01/07 724 Temp 97.3 01/07 724 Pulse 81 01/06 07 Resp 20 01/07 724 General appearance: alert, awake, orientedHEENT: anicteric, atraumatic, pupils reactive to lightCardiovascular: regular rate and rhythm, normal heart soundsRespiratory: aerating well, clear to auscultationAbdomen: non-tender, normal bowel sounds, softExtremities: moves all, no peripheral edemaNeuro/GREEN PRIZE PACKER: alert, oriented X 3skin intact Current MedicationsMedications:Active Meds + DC'd Last 24 HrsAcetazolamide 250 MG Q12HR IV (DC) Sterile Water 2.5 MLFamotidine 20 MG BID PO Dexamethasone 10 MG BID PO Lisinopril 20 MG DAILY PO Sertraline HCl 50 MG DAILY PO Dextrose/Water 50 ML ONCE PRN IV (CKD) Insulin Human Lispro S/SCALE AC HS SUBQ ResultsFindings/Data:Laboratory Tests 01/06 1625 1205 Chemistry POC Glucose (70 - 110 mg/dL) 134 H 298 H 207 H 188 H Diagnosis, Assessment PlanProblem List/A P: 1. Pneumonia due to COVID-19 virus Free Text DxA P NotesFree Text DxA P Notes:1. Thrombocytopenia, multifactorial in etiology secondary to consumption fromacute illness, other differential includes disseminated intravascularcoagulation, coagulopathy, medications, heparin-induced thrombocytopenia thoughsuspicion is low.2. COVID pneumonia. Management per primary team.3. Acute hypoxic respiratory failure.4. Sleep apnea.5. Morbid obesity. RECOMMENDATIONS:1. Check following lab for further evaluation: Peripheral smear, LDH,haptoglobin, retic count, B12, folate, TSH, XU, PT, PTT, fibrinogen.2. Hold anticoagulation.3. Mechanical anticoagulation.4 Follow up on the HIT antibody panel.5. Monitor CBC and transfuse to keep hemoglobin more than 7 and platelets morethan 20 or higher if bleeding present.6. Supportive care. 01/05Platelets [place].No coaglopathy or DICTranssient thrombocytopenia due to consumptionFollow up on pending labs 01/06/2021Thrombocytopenia resolved.CBc normalWill sign off. at 1057 RPT #: [id number] OF REPORT PRProgress Viao5339-48-13R67:55:00L.YASR65655058-7249ZEUvwlw able for patient zddvZMZNVROBDQSKFZ5317-45-11M88:57:31 [facility] 2021-01-05 16:04:00 HNnyryvjptn95273679Y kjKyALsmH8U7hqnGKV/fyjd0/i4P8 7cPI3p4pEKz5UQ1pNXC5XUHQPBbdVHqIOK4812-35-62W36:0 4:00 [facility] ([facility])Infectious Dis. Progress NoteREPORT#:[id number] REPORT STATUS: SignedDATE:01/05/21 TIME:1604 PATIENT: LORI DELUCA UNIT #: [id number]#: [id number] [address] [birth year] AGE: 55 SEX: F ATTEND: Alfred Escobedo [facility] AUTHOR: Annalisa Hernandez * ALL edits or amendments must be made on the electronic/computer document * SubjectiveChief Complaint:PneumoniaHPI:Patient on 6L nasal cannula; speaking in full sentences; sitting in chair and conversant; afebrile; decreasing leukocytosis; CRP and Cr normal. Review of SystemsConstitutional:Denies: chills, fatigue, fever. Objective GeneralVS/I O:Last Documented: Result Date Time Pulse Ox 92 01/05 1532 B/P 101/65 01/05 1532 B/P Mean 77.1 01/05 1532 O2 Delivery Nasal cannula 01/05 1532 Temp 36.4 01/05 1532 Pulse 59 01/05 1532 Resp 20 01/05 1532 O2 Flow Rate 8 01/05 0811 FiO2 48 01/04 1505 Vital Signs Date Temp Pulse Resp B/P B/P Mean Pulse Ox FiO2 01/04-01/05 36.4 52-84 17-20 93-143/58-79 69.9-94.1 84-97 PATIENT WEIGHT: Weight (lb): 400Weight (oz): 2.22Weight (kg): 181.437 Physical ExamGeneral appearance: alert, awake, oriented, no acute distress, conversationalHead/Eyes: atraumatic, EOMI, normal conjunctiva/sclera, normocephalicNeck: full range of motion, non-tenderAbdomen: non-tender, soft, no distention, no guardingExtremities: moves all, normal capillary refill, normal temperaturePsychiatry: normal affect, normal judgment/insight, normal mood Diagnosis, Assessment PlanFree Text A P:Laboratory Tests 01/05/21 0600:[Embedded Image Not Available]Plt Count TNP 01/04/21 1000:[Embedded Image Not Available] Assessment:1. Pneumonia with covid-19 s/p CV plasma and remdesivir.2. Acute respiratory failure with hypoxia.3. Morbid obesity. Plan:1. Steroids.2. Monitor inflammatory markers. CRP at normal levels.3. Pt completed treatment with ceftriaxone.4. Wean O2 as tolerated.5. Patient clinically improving from ID standpoint. Thank you for this consult. at 1745 RPT #: [id number] OF REPORT PRProgress Kxfy8468-46-71S47:04:00L.ZAGZ28237672-2893IYSpzfb able for patient hfxsLVWFQNQOCNDENA6715-63-71O49:45:59 [facility] 2021-01-05 16:04:00 KNtcomarvnz67504918e pYxB47Si+ZZMXvcMImw1l0BuR5UiX cz0Ww18CIirYlwkBnbvhkxu0bQs88a2d3h1070-44-02M37:0 4:00 [facility] ([facility])Infectious Dis. Progress NoteREPORT#:[id number] REPORT STATUS: SignedDATE:01/05/21 TIME:1604 PATIENT: LORI DELUCA UNIT #: [id number]#: [id number] [address] [birth year] AGE: 55 SEX: F ATTEND: Alfred Escobedo [facility] AUTHOR: Annalisa Hernandez * ALL edits or amendments must be made on the electronic/computer document * Annalisa Hernandez 01/05/21 1604:SubjectiveChief Complaint:PneumoniaHPI:Patient on 6L nasal cannula; speaking in full sentences; sitting in chair and conversant; afebrile; decreasing leukocytosis; CRP and Cr normal. Review of SystemsConstitutional:Denies: chills, fatigue, fever. Objective GeneralVS/I O:Last Documented: Result Date Time Pulse Ox 92 01/05 1532 B/P 101/65 01/05 1532 B/P Mean 77.1 01/05 1532 O2 Delivery Nasal cannula 01/05 1532 Temp 36.4 01/05 1532 Pulse 59 01/05 1532 Resp 20 01/05 1532 O2 Flow Rate 8 01/05 0811 FiO2 48 01/04 1505 Vital Signs Date Temp Pulse Resp B/P B/P Mean Pulse Ox FiO2 01/04-01/05 36.4 52-84 17-20 93-143/58-79 69.9-94.1 84-97 PATIENT WEIGHT: Weight (lb): 400Weight (oz): 2.22Weight (kg): 181.437 Physical ExamGeneral appearance: alert, awake, oriented, no acute distress, conversationalHead/Eyes: atraumatic, EOMI, normal conjunctiva/sclera, normocephalicNeck: full range of motion, non-tenderAbdomen: non-tender, soft, no distention, no guardingExtremities: moves all, normal capillary refill, normal temperaturePsychiatry: normal affect, normal judgment/insight, normal mood Diagnosis, Assessment PlanFree Text A P:Laboratory Tests 01/05/21 0600:[Embedded Image Not Available]Plt Count TNP 01/04/21 1000:[Embedded Image Not Available] Assessment:1. Pneumonia with covid-19 s/p CV plasma and remdesivir.2. Acute respiratory failure with hypoxia.3. Morbid obesity. Plan:1. Steroids.2. Monitor inflammatory markers. CRP at normal levels.3. Pt completed treatment with ceftriaxone.4. Wean O2 as tolerated.5. Patient clinically improving from ID standpoint. Thank you for this consult. Rudy Aguilar 01/05/21 5065:AttestationsAttestation needed: supervising physician Physician AttestationAgree w/findings plan:Agree with the findings and plan as documented by TERE Hernandez. Pt with severe covid-19 who has markedly improved, O2 requirements have been decreasing. Plan is to wean o2 as tolerated and steroids per pulmonary. at 1745 RPT #: [id number] OF REPORT PRProgress Nkte5077-35-61U06:04:00L.OEFC51555828-9180CKOyubu able for patient ajiuPJVPNSXXREOSYT6451-76-38S75:56:21 [facility] 2021-01-05 16:04:00 NBwnxnhudzg26304990F Lq+g2oPspmkg+RoZAcEw2SogTJF8d pcOTlbxN3FVZJDqmQxHO0Y9ul718DUERl/5873-30-17P42:0 4:00 [facility] ([facility])Infectious Dis. Progress NoteREPORT#:[id number] REPORT STATUS: SignedDATE:01/05/21 TIME:1604 PATIENT: LORI DELUCA UNIT #: [id number]#: [id number] [address] [birth year] AGE: 55 SEX: F ATTEND: Alfred Esocbedo [facility] AUTHOR: Annalisa Hernandez * ALL edits or amendments must be made on the electronic/computer document * Annalisa Hernandez 01/05/21 1604:SubjectiveChief Complaint:PneumoniaHPI:Patient on 6L nasal cannula; speaking in full sentences; sitting in chair and conversant; afebrile; decreasing leukocytosis; CRP and Cr normal. Review of SystemsConstitutional:Denies: chills, fatigue, fever. Objective GeneralVS/I O:Last Documented: Result Date Time Pulse Ox 92 01/05 1532 B/P 101/65 01/05 1532 B/P Mean 77.1 01/05 1532 O2 Delivery Nasal cannula 01/05 1532 Temp 36.4 01/05 1532 Pulse 59 01/05 1532 Resp 20 01/05 1532 O2 Flow Rate 8 01/05 0811 FiO2 48 01/04 1505 Vital Signs Date Temp Pulse Resp B/P B/P Mean Pulse Ox FiO2 01/04-01/05 36.4 52-84 17-20 93-143/58-79 69.9-94.1 84-97 PATIENT WEIGHT: Weight (lb): 400Weight (oz): 2.22Weight (kg): 181.437 Physical ExamGeneral appearance: alert, awake, oriented, no acute distress, conversationalHead/Eyes: atraumatic, EOMI, normal conjunctiva/sclera, normocephalicNeck: full range of motion, non-tenderAbdomen: non-tender, soft, no distention, no guardingExtremities: moves all, normal capillary refill, normal temperaturePsychiatry: normal affect, normal judgment/insight, normal mood Diagnosis, Assessment PlanFree Text A P:Laboratory Tests 01/05/21 0600:[Embedded Image Not Available]Plt Count TNP 01/04/21 1000:[Embedded Image Not Available] Assessment:1. Pneumonia with covid-19 s/p CV plasma and remdesivir.2. Acute respiratory failure with hypoxia.3. Morbid obesity. Plan:1. Steroids.2. Monitor inflammatory markers. CRP at normal levels.3. Pt completed treatment with ceftriaxone.4. Wean O2 as tolerated.5. Patient clinically improving from ID standpoint. Thank you for this consult. Rudy Aguilar 01/05/21 1855:AttestationsAttestation needed: supervising physician Physician AttestationAgree w/findings plan:Agree with the findings and plan as documented by TERE Hernandez. Pt with severe covid-19 who has markedly improved, O2 requirements have been decreasing. Plan is to wean o2 as tolerated and steroids per pulmonary. at 1745 at 1856 [facility] #: [id number] OF REPORT PRProgress Icru0401-54-24M40:04:00L.QNDW73813033-6477WIVrwro able for patient dzjkDVPLGYFUYTGIFN1049-35-03P59:56:21 [facility] 2021-01-05 12:44:00 DXtfeddpjsx24859052p 3EVC7A8IZ2U+vluKFDnA/YgT7egLt xahcF3PtHiWpcITVJvQtNrrWrYvbh2FAml9758-81-21R45:4 4:00 [facility] Progress NoteREPORT#:[id number] REPORT STATUS: SignedDATE:01/05/21 TIME:1244 PATIENT: LORI DELUCA UNIT #: [id number]#: [id number] [address] [birth year] AGE: 55 SEX: F ATTEND: Alfred Escobedo [facility] AUTHOR: Yandy Johnson MD * ALL edits or amendments must be made on the electronic/computer document * SubjectiveChief Complaint:stable. On oxygen currently 6 LDenies any chest pain or shortness of breath Review of SystemsCardiovascular:Denies: chest pain. GI:Denies: nausea, vomiting. Objective GeneralVS/I O:Vital Signs: Date Time Temp Pulse Resp B/P B/P Pulse O2 O2 Flow FiO2 Mean Ox Delivery Rate 01/05 0811 High flow 8 nasal cannula 01/05 0805 36.4 84 20 109/69 82.5 91 Nasal cannula 01/05 0757 97 High flow 8 nasal cannula 01/05 0448 36.4 57 20 118/79 91.8 92 01/05 0018 36.4 52 20 128/75 92.6 95 01/04 2211 57 92 01/04 2124 94 Nasal 8 cannula 01/05 2024 36.4 59 20 105/62 76.7 87 01/05 2000 Nasal 8 cannula 01/04 1645 60 17 143/70 94.1 84 Room air 01/04 1505 94 Nasal 7 48 cannula PATIENT WEIGHT: Weight (lb): 400Weight (oz): 2.22Weight (kg): 181.437 Physical ExamGeneral appearance: alert, awakeNeck: non-tender, no JVDCardiovascular: regular rate rhythm, no murmur, no rub, no thrillRespiratory: decreased breath sounds, hypoxiaAbdomen: non-tender, normal bowel sounds, soft, no distention, no guardingExtremities: moves all, no edemaNeuro/GREEN PRIZE PACKER: alert, oriented X 3, normal speech, no motor deficits, no sensory deficits Diagnosis, Assessment Plan Free Text DxA P NotesFree text DxA P notes: Acute hypoxic respiratory failure with COVID-19 pneumoniaWe will admit the patient Start the patient on steroidsWe will hold off on antibiotics as patient is afebrile white count is normal we will try to get CT scan of the chest to see if there are some infiltrates or not.We will get CT of the chest to assess the infiltrates As D-dimer is elevated and troponins are elevated will continue with therapeuticanticoagulationSymptomatic managementWe will ask infectious disease and pulmonary to evaluate Started the patient on remdesivirContinue supplemental oxygen to keep O2 sat above 90% and monitor respiratory status closelyProning NSTEMIPossibly type II in the setting of COVID-19 pneumonia with hypoxia. We will continue to trend troponins. Keep the patient on aspirin statin. We will get an echocardiogram. Monitor on telemetry. HypertensionResume lisinopril monitor blood pressure keep on as needed hydralazine PrediabetesNow that the patient will be on steroids we will keep on insulin sliding scale monitor blood sugars keep on diabetic diet COPDDoes not appear to be in COPD exacerbation will be on steroids supplemental oxygen. Monitor respiratory status closely. Pulmonary on board. DVT GI prophylaxisPatient is full codePatient was explained the plan in detail all medication effect side effects werediscussed all was well associated with the planNext of kin sister Madelyn ferguson [phone] 1Covid 19 PneumoniaCOPDHTNDMMorbid Obesity Plan------Continue on remdesevir-Continue COVID treatment protocol ( steroids, vit c/d/zinc)-Prone positioning as tolerated-Monitor inflammatory markers-Hiflow oxygen prn -Pulm and ID following-Accuchecks with ISS-Diabetic diet-Ensure tight glucose control-Resume home meds for BP sydpiiw-Wlmib-cikxiy completion of therapy and clinical improvement 12/30/2020- acute respiratory failure secondary to covid. 15 L high flow oxygen, wean as tolerated, cont steriod/remdesivir. PUl following- Covid 19 Pneumonia. ID following- COPD, neb tx- HTN; cont home med- DM; SSI- Morbid Obesity; lifestyle modification- Depression. zoloft- Debility. PT to mobilizeDVT/PPX- lovenoxplan. cont remdesivir/wean oxygenWas moved to ICU yesterday as was repeatedly taken off oxygen, currently more stable and on my evaluation is keeping on her oxygenIf stable can downgrade to IMCU 12/31/2020- acute respiratory failure secondary to covid. 15 L high flow oxygen, wean as tolerated, cont steriod/remdesivir. There is day 3 of remdesivir.- Covid 19 Pneumonia. ID following- COPD, neb tx- HTN; cont home med- DM; SSI- Morbid Obesity; lifestyle modification- Depression. zoloft- Debility. PT to mobilizeDVT/PPX- lovenox weight-basedplan. cont remdesivir/wean oxygenCurrently in IMCU, if can wean oxygen down to 10 L, will transfer to telemetry CODE STATUSFull code Noted patient has no official past medical power of patent prosecution attorney but and next of kinis her sister Madelyn Ferguson which she told me can make decisions for her if he everbecomes incapacitated. 01/01/2021- acute respiratory failure secondary to covid. 15 L high flow oxygen, wean as tolerated, cont steriod/remdesivir. - Covid 19 Pneumonia. ID following- COPD, neb tx- HTN; cont home med- DM; SSI- Morbid Obesity; lifestyle modification- Depression. zoloft- Debility. PT to mobilizeDVT/PPX- lovenox weight-basedplan. cont remdesivir/wean oxygenCurrently in IMCU, if can wean oxygen down to 10 L, [place] CODE STATUSFull code 01/02/2021- acute respiratory failure secondary to covid. 12 L high flow oxygen, wean as tolerated, cont steriodS/p remdesivir- Covid 19 Pneumonia. ID following- COPD, neb tx- HTN; cont home med- DM; SSI- Morbid Obesity; lifestyle modification- Depression. zoloft- Debility. PT to mobilizeDVT/PPX- lovenox weight-basedContinue to wean oxygenCurrently in IMCU, can transfer to telemetry today 01/03/2021- acute respiratory failure secondary to covid. 10 L high flow oxygen, wean as tolerated, cont steriodS/p remdesivir- Covid 19 Pneumonia. ID following-Worsening thrombocytopenia, platelet 7 today, discontinue Lovenox , get HIT panel and consult hematology- COPD, neb tx- HTN; cont home med- DM; SSI- Morbid Obesity; lifestyle modification- Depression. zoloft- Debility. PT DVT/PPX-DC Lovenox because of thrombocytopenia, do SCDContinue to wean oxygenCurrently in IMCU, can transfer to telemetry today, will also consult physical therapy for home health and once we can get her oxygen requirements down to 5 L plan discharge CODE STATUSFull code 01/04/2021- acute respiratory failure secondary to covid. 7 L high flow oxygen, wean as tolerated, cont steriodS/p remdesivir- Covid 19 Pneumonia. ID following-Worsening thrombocytopenia, platelet 137 today, discontinue Lovenoxd yesterday,his platelet was 37 yesterday, but now back to normal., Follow HIT panel, follow hematology recommendation- COPD, neb tx- HTN; cont home med- DM; SSI- Morbid Obesity; lifestyle modification- Depression. zoloft- Debility. PT DVT/PPX-DCd Lovenox because of thrombocytopenia, do SCDContinue to wean oxygenPatient has no insurance so cannot do home health,, and once we can get her oxygen requirements down to 5 L plan discharge CODE STATUSFull code 01/05/2021- acute respiratory failure secondary to covid. 6 L high flow oxygen, wean as tolerated, cont steriodS/p remdesivir- Covid 19 Pneumonia. ID following-Worsening thrombocytopenia, platelet 137 today, discontinue Lovenoxd yesterday,his platelet was 37 01/03, but now back to normal., Follow HIT panel, follow hematology recommendation- COPD, neb tx- HTN; cont home med- DM; SSI- Morbid Obesity; lifestyle modification- Depression. zoloft- Debility. PT DVT/PPX-DCd Lovenox because of thrombocytopenia, do SCDContinue to wean oxygenPatient has no insurance so cannot do home health,, and once we can get her oxygen requirements down to 5 L plan discharge CODE STATUSFull code Noted patient has no official past medical power of patent prosecution attorney but and next of kinis her sister Madelyn Ferguson which she told me can make decisions for her if he everbecomes incapacitated. at 1246 RPT #: [id number] OF REPORT PRProgress Yhtb3541-73-40B52:44:00L.[id number] able for patient ndhoEEBMOOIGBHVHXT5893-45-20U58:46:47 [facility] 2021-01-05 12:30:00 [id number] L5AYxz3seEcrkwApekcGY5xHAsBTW IakHO+RWBUgQFHi7lhqjfvXLguWuu+5sA22704-54-04W10:3 0:00 [facility] Progress NoteREPORT#:[id number] REPORT STATUS: SignedDATE:01/05/21 TIME:1230 PATIENT: LORI DELUCA UNIT #: [id number]#: [id number] [address] AGE: 55 SEX: F ATTEND: Alfred Escobedo [facility] AUTHOR: Sergio Love * ALL edits or amendments must be made on the electronic/computer document * SubjectiveChief Complaint:Comfortable on 6L/min NCDid not wear her BiPAP overnight, refusingAppears sluggish/fatigued today Review of Systems ROSRespiratory:Reports: TOURE (dyspnea on exertion). Denies: pleuritic pain. Cardiovascular:Reports: TOURE (dyspnea on exertion). Denies: chest pain. GI:Denies: abdominal pain. :Denies: frequency, pelvic pain. Objective GeneralVS/I O:Last Documented: Result Date Time O2 Delivery High flow nasal cannula 01/05 811 O2 Flow Rate 8 01/05 08 Pulse Ox 91 01/05 805 B/P 109/69 01/05 805 B/P Mean 82.5 01/05 805 Temp 36.4 01/05 08 Pulse 84 01/05 08 Resp 20 01/05 08 FiO2 48 01/04 1505 PATIENT WEIGHT: Weight (lb): 400Weight (oz): 2.22Weight (kg): 181.437 Medications:Active Meds + DC'd Last 24 HrsAcetazolamide 250 MG Q12HR IV (DC) Sterile Water 2.5 MLFamotidine 20 MG BID PO Dexamethasone 10 MG BID PO Benzonatate 100 MG TID PO (DC) Lisinopril 20 MG DAILY PO Sertraline HCl 50 MG DAILY PO Dextrose/Water 50 ML ONCE PRN IV (CKD) Insulin Human Lispro S/SCALE AC HS SUBQ Physical ExamHead/eyes: atraumatic, normocephalicCardiovascular: normal heart sounds, normal S1/S2, regular rate rhythm, no rub, no gallopRespiratory/chest: aerating well, clear to auscultation, symmetric expansionAbdomen: soft, normal bowel soundsMusculoskeletal: full range of motionNeuro/GREEN PRIZE PACKER: alert, oriented X 3, CNII-XII intact ResultsFindings/Data:Laboratory Tests 01/05/21 0943:[Embedded Image Not Available] 01/05/21 0600:[Embedded Image Not Available]Laboratory Tests 01/05 01/05 01/05 01/04 01/04 1205 0716 0600 2023 1640Chemistry POC Glucose (70 - 110 mg/dL) 188 H 168 H 287 H 243 H C-Reactive Protein (0.000 - 0.3 < 0.290MG/DL) Laboratory Tests 01/05 01/05 0943 0600 Hematology WBC (3.5 - 11.0 K/mm3) 11.6 H RBC (4.70 - 6.10 M/mm3) 5.92 Hgb (10.4 - 14.9 G/DL) 15.8 H Hct (31.5 - 44.1 %) 52.3 H MCV (84.5 - 98.6 Fl) 88.3 MCH (27.0 - 34.2 pg) 26.7 L MCHC (31.5 - 34.0 G/DL) 30.2 L Plt Count (150 - 450 K/mm3) 271 Radiology data:Recent Impressions:RADIOLOGY - XR CHEST 1 V 01/05 1052 Report Impression - Status: SIGNED Entered: 01/05/2021 1136 IMPRESSION:Improved appearance of diffuse mixed pulmonary opacities. Location: D87Impmfioxbo By: Gertrude Sandoval M.D. Diagnosis, Assessment PlanHospital course to date:Impressions Acute hypoxic respiratory failurePneumonia due to covid-19 infectionSleep apneaMorbid obesity Plan On 6 L HF NC, titrate and maintain oxygenation >92%NIPPV PRN/QHS; refusing, S/p diamox, Check AM VBGs/p convalescent plasma, remdesivir, Antibiotics, ID followingDexamethasone 10 mg BID PONeeds aggressive PT, ISGI prophylaxisSCDsFull code at 1233 RPT #: [id number] OF REPORT PRProgress Myfy5779-27-78Z08:30:00L.[id number] able for patient jboyEAIOBCFNJSRBZA5339-53-75B95:34:07 [facility] 2021-01-05 12:30:00 SBrzbrejizd40430857V KJ4ZPUf/zG6YSMc8v8QTvEDXwrhL8 WzT0YIq5WN47bQit9Xu7khNDG0hBGbFU4K7537-61-27L81:3 0:00 [facility] ([facility])Pulmonology Progress NoteREPORT#:[id number] REPORT STATUS: SignedDATE:01/05/21 TIME:1230 PATIENT: LORI DELUCA UNIT #: [id number]#: [id number] ROOM/BED: [facility]DOB: [birth year] AGE: 55 SEX: F ATTEND: Alfred Escobedo [facility] AUTHOR: Sergio Love * ALL edits or amendments must be made on the electronic/computer document * Sergio Love 01/05/21 1230:SubjectiveChief Complaint:Comfortable on 6L/min NCDid not wear her BiPAP overnight, refusingAppears sluggish/fatigued today Review of Systems ROSRespiratory:Reports: TOURE (dyspnea on exertion). Denies: pleuritic pain. Cardiovascular:Reports: TOURE (dyspnea on exertion). Denies: chest pain. GI:Denies: abdominal pain. :Denies: frequency, pelvic pain. Objective GeneralVS/I O:Last Documented: Result Date Time O2 Delivery High flow nasal cannula 01/05 0811 O2 Flow Rate 8 01/05 0811 Pulse Ox 91 01/05 0805 B/P 109/69 01/05 0805 B/P Mean 82.5 01/05 0805 Temp 36.4 01/05 0805 Pulse 84 01/05 0805 Resp 20 01/05 0805 FiO2 48 01/04 1505 PATIENT WEIGHT: Weight (lb): 400Weight (oz): 2.22Weight (kg): 181.437 Medications:Active Meds + DC'd Last 24 HrsAcetazolamide 250 MG Q12HR IV (DC) Sterile Water 2.5 MLFamotidine 20 MG BID PO Dexamethasone 10 MG BID PO Benzonatate 100 MG TID PO (DC) Lisinopril 20 MG DAILY PO Sertraline HCl 50 MG DAILY PO Dextrose/Water 50 ML ONCE PRN IV (CKD) Insulin Human Lispro S/SCALE AC HS SUBQ Physical ExamHead/eyes: atraumatic, normocephalicCardiovascular: normal heart sounds, normal S1/S2, regular rate rhythm, no rub, no gallopRespiratory/chest: aerating well, clear to auscultation, symmetric expansionAbdomen: soft, normal bowel soundsMusculoskeletal: full range of motionNeuro/GREEN PRIZE PACKER: alert, oriented X 3, CNII-XII intact ResultsFindings/Data:Laboratory Tests 01/05/21 0943:[Embedded Image Not Available] 01/05/21 0600:[Embedded Image Not Available]Laboratory Tests 01/05 01/05 01/05 01/04 01/04 1205 0716 0600 2023 1640Chemistry POC Glucose (70 - 110 mg/dL) 188 H 168 H 287 H 243 H C-Reactive Protein (0.000 - 0.3 < 0.290MG/DL) Laboratory Tests 01/05 01/05 0943 0600 Hematology WBC (3.5 - 11.0 K/mm3) 11.6 H RBC (4.70 - 6.10 M/mm3) 5.92 Hgb (10.4 - 14.9 G/DL) 15.8 H Hct (31.5 - 44.1 %) 52.3 H MCV (84.5 - 98.6 Fl) 88.3 MCH (27.0 - 34.2 pg) 26.7 L MCHC (31.5 - 34.0 G/DL) 30.2 L Plt Count (150 - 450 K/mm3) 271 Radiology data:Recent Impressions:RADIOLOGY - XR CHEST 1 V 01/05 1052 Report Impression - Status: SIGNED Entered: 01/05/2021 1136 IMPRESSION:Improved appearance of diffuse mixed pulmonary opacities. Location: W65Ixjwxkxppy By: Gertrude Sandoval M.D. Diagnosis, Assessment PlanHospital course to date:Impressions Acute hypoxic respiratory failurePneumonia due to covid-19 infectionSleep apneaMorbid obesity Plan On 6 L HF NC, titrate and maintain oxygenation >92%NIPPV PRN/QHS; refusing, S/p diamox, Check AM VBGs/p convalescent plasma, remdesivir, Antibiotics, ID followingDexamethasone 10 mg BID PONeeds aggressive PT, ISGI prophylaxisSCDsFull code Daniel Tariq 01/05/21 2258:Diagnosis, Assessment PlanHospital course to date:evaluated, discussed with RENTAL SALESPERSON . discussed planAgree with above at 1233 at 0766 RPT #: [id number] OF REPORT PRProgress Cuky5122-51-78K09:30:00L.PDIA96697986-6737RTTflsr able for patient awpkTWLXCQIFWCBJOE3163-47-50W57:59:17 HCAPM 2021-01-05 09:54:00 HHkeeqwhgsu23812731d W2uAZDKwCwO9ZWZ4qL0HtAlDOII7v rqDysrPRNiJe4mZ1paGsq8ebAmEBONKEmO8541-53-81Y49:5 4:00 [facility] Progress NoteREPORT#:[id number] REPORT STATUS: SignedDATE:01/05/21 TIME:09 PATIENT: LORI DELUCA UNIT #: [id number]#: [id number] [address] AGE: 55 SEX: F ATTEND: Alfred Escobedo [facility] AUTHOR: Yanet Lim MD * ALL edits or amendments must be made on the electronic/computer document * SubjectiveChief Complaint:Events notedSOB improvingNo overt bleeding Objective Physical ExamVS:Vital Signs Date Temp Pulse Resp B/P B/P Mean Pulse Ox FiO2 01/04-01/05 97.5 52-84 17-20 105-143/62-79 76.7-94.1 84-97 48 Last Documented: Result Date Time O2 Delivery High flow nasal cannula 01/05 0811 O2 Flow Rate 8 01/05 0811 Pulse Ox 91 01/05 0805 B/P 109/69 01/05 0805 B/P Mean 82.5 01/05 0805 Temp 97.5 01/05 0805 Pulse 84 01/05 0805 Resp 20 01/05 0805 FiO2 48 01/04 1505 General appearance: respiratory support, alert, awake, orientedHEENT: anicteric, atraumatic, pupils reactive to lightCardiovascular: regular rate and rhythm, normal heart soundsRespiratory: aerating well, clear to auscultationAbdomen: non-tender, normal bowel sounds, softExtremities: moves all, no peripheral edemaNeuro/GREEN PRIZE PACKER: alert, oriented X 3skin intact Current MedicationsMedications:Active Meds + DC'd Last 24 HrsAcetazolamide 250 MG Q12HR IV Sterile Water 2.5 MLFamotidine 20 MG BID PO Dexamethasone 10 MG BID PO Benzonatate 100 MG TID PO (DC) Lisinopril 20 MG DAILY PO Sertraline HCl 50 MG DAILY PO Dextrose/Water 50 ML ONCE PRN IV (CKD) Insulin Human Lispro S/SCALE AC HS SUBQ ResultsFindings/Data:Laboratory Tests 01/05/21 0600:[Embedded Image Not Available] 01/04/21 1000:[Embedded Image Not Available]Laboratory Tests 01/05 01/05 01/04 01/04 01/04 0716 0600 2023 1640 1103Chemistry POC Glucose (70 - 110 mg/dL) 168 H 287 H 243 H 215 H C-Reactive Protein (0.000 - 0.3 < 0.290MG/DL) 01/04 01/04 1000 1000 Chemistry Sodium (134 - 147 mmol/L) 138 Potassium (3.4 - 5.0 mmol/L) 4.3 Chloride (100 - 108 mmol/L) 104 Carbon Dioxide (21 - 32 mmol/L) 30 Anion Gap (4.0 - 15.0 GAP calc) 4.0 BUN (7 - 18 MG/DL) 23 H Creatinine (0.6 - 1.0 MG/DL) 0.6 Glomerular Filtr Rate (>60 estGFR) >=60 max estimate Glucose (70 - 110 MG/DL) 204 H Calcium (8.5 - 10.1 MG/DL) 9.0 Lactate Dehydrogenase (84 - 246 Unit/L) 437 H Vitamin B12 (183 - 986 PG/ML) 3766 H Folate (3.10 - 17.50 NG/ML) 6.60 TSH (0.340 - 4.820 mcIU/ML) 1.460 Laboratory Tests 01/04 1000 Coagulation INR (0.8 - 1.2 INR Unit) 1.05 PTT (Piatt) (26 - 35 SECONDS) 38.4 H PT Patient/Control Mix (9.3 - 12.9 SECONDS) 11.8 Laboratory Tests 01/05 01/04 0600 1000 Hematology WBC (3.5 - 11.0 K/mm3) 11.6 H 12.2 H RBC (4.70 - 6.10 M/mm3) 5.92 6.00 Hgb (10.4 - 14.9 G/DL) 15.8 H 15.9 H Hct (31.5 - 44.1 %) 52.3 H 53.1 H MCV (84.5 - 98.6 Fl) 88.3 88.5 MCH (27.0 - 34.2 pg) 26.7 L 26.5 L MCHC (31.5 - 34.0 G/DL) 30.2 L 29.9 L RDW (11.5 - 14.5 SD) 14.5 Plt Count (150 - 450 K/mm3) 173 MPV (7.0 - 10.5 fL) 11.10 H Neut % (Auto) (40 - 76 %) 79.2 H Lymph % (Auto) (20.5 - 51.1 %) 11.0 L [place] % (Auto) (1.7 - 9.3 %) 4.5 Eos % (Auto) (0.0 - 6.0 %) 0.0 Baso % (Auto) (0.0 - 2.0 %) 0.2 Neut # (Auto) (1.8 - 7.6 K/mm3) 9.6 H Lymph # (Auto) (0.6 - 3.2 K/mm3) 1.3 [place] # (Auto) (0.3 - 1.1 K/mm3) 0.6 Eos # (Auto) (0.0 - 0.4 K/mm3) 0.0 Baso # (Auto) (0.0 - 0.1 K/mm3) 0.0 Abs Immat Gran (auto) (0.00 - 0.03 x10 3/uL) 0.62 H Immature Gran % (0.0 - 5.0 %) 5.1 H Nucleated RBC % (0.0 - 1.0 /100WBC%) 0.2 Diagnosis, Assessment PlanProblem List/A P: 1. Pneumonia due to COVID-19 virus Free Text DxA P NotesFree Text DxA P Notes:1. Thrombocytopenia, multifactorial in etiology secondary to consumption fromacute illness, other differential includes disseminated intravascularcoagulation, coagulopathy, medications, heparin-induced thrombocytopenia thoughsuspicion is low.2. COVID pneumonia. Management per primary team.3. Acute hypoxic respiratory failure.4. Sleep apnea.5. Morbid obesity. RECOMMENDATIONS:1. Check following lab for further evaluation: Peripheral smear, LDH,haptoglobin, retic count, B12, folate, TSH, XU, PT, PTT, fibrinogen.2. Hold anticoagulation.3. Mechanical anticoagulation.4 Follow up on the HIT antibody panel.5. Monitor CBC and transfuse to keep hemoglobin more than 7 and platelets morethan 20 or higher if bleeding present.6. Supportive care. 01/05Platelets [place].No coaglopathy or DICTranssient thrombocytopenia due to consumptionFollow up on pending labs at 0957 [facility] #: [id number] OF REPORT PRProgress Xglu6764-05-58Q64:54:00L.WUJC68151001-7804TPWwmgl able for patient kbawSITTJPYUVCDVTR3068-33-63N85:57:53 [facility] 2021-01-04 14:25:00 OSvqmhhhrqy03637163N qEO+02hd5aEAvCbcW3FX+vuatas4+ +QihcolugVjBruVx8Y1D1uQq36Lojhqpf37380-58-30J17:2 5:00 [facility] ([facility])Pulmonology Progress NoteREPORT#:[id number] REPORT STATUS: SignedDATE:01/04/21 TIME:1425 PATIENT: LORI DELUCA UNIT #: [id number]#: [id number] [address] [birth year] AGE: 55 SEX: F ATTEND: Alfred Escobedo [facility] AUTHOR: Sonal Voss * ALL edits or amendments must be made on the electronic/computer document * SubjectiveChief Complaint:7L/min HF NC, no distressBIPAP at night and PRN Review of Systems ROSConstitutional:Denies: generalized weakness. Skin:Denies: contusion, ecchymosis. Allergy/Immun:Denies: hives, itching. Eyes:Denies: visual loss/blurred, diplopia. Respiratory:Reports: TOURE (dyspnea on exertion). Denies: pleuritic pain. Cardiovascular:Reports: TOURE (dyspnea on exertion). Denies: chest pain. GI:Denies: abdominal pain. :Denies: frequency, pelvic pain. Musculoskeletal:Denies: joint pain, myalgias. Heme:Denies: bleeding, petechiae. Endocrine:Denies: heat intolerance, polyphagia. Neuro:Denies: confusion, headache. Objective GeneralVS/I O:Last Documented: Result Date Time Pulse Ox 94 01/04 1107 B/P 105/75 01/04 1107 B/P Mean 84.8 01/04 1107 O2 Delivery Nasal cannula 01/04 1107 Temp 36.4 01/04 1107 Pulse 61 01/04 1107 Resp 18 01/04 1107 O2 Flow Rate 8 01/04 0936 FiO2 64 01/03 0858 24 hour I O ending at 0700: 01/04 0700 01/03 1900 Intake Total 1500 Output Total 800 2600 Balance -800 -1100 Intake, Oral 1500 Number 0 Bowel Movements Number Voids Output, Urine 800 2600 PATIENT WEIGHT: Weight (lb): 400Weight (oz): 2.22Weight (kg): 181.437 Medications:Active Meds + DC'd Last 24 HrsAcetazolamide 250 MG Q12HR IV Sterile Water 2.5 MLFamotidine 20 MG BID PO Dexamethasone 10 MG BID PO Benzonatate 100 MG TID PO (DC) Ceftriaxone Sodium 1,000 MG Q24H IV (DC) Sterile Water 10 MLLisinopril 20 MG DAILY PO Sertraline HCl 50 MG DAILY PO Dextrose/Water 50 ML ONCE PRN IV (CKD) Insulin Human Lispro S/SCALE AC HS SUBQ Nutrition assessment:The data set between the solid lines has been imported from the dietitian's assessment. Any exceptions have been noted under Provider comments. BMI Calculated: 75.6Nutrition related diagnosis: Nutrition diagnosis details: Nutrition problem: Nutrition etiology: Nutrition signs and symptoms: Nutrition prescription: Dietitian name: Assessment completed: Provider comments on imported dietitian assessment: Physical ExamGeneral appearance: obeseHead/eyes: atraumatic, normocephalicENT: ENT: normal nose, normal sinusCardiovascular: normal heart sounds, normal S1/S2, regular rate rhythm, no rub, no gallopRespiratory/chest: aerating well, clear to auscultation, symmetric expansionAbdomen: soft, normal bowel soundsExtremities: edema, no cyanosis, no edemaMusculoskeletal: full range of motionNeuro/GREEN PRIZE PACKER: alert, oriented X 3, CNII-XII intactPsychiatry: normal affect, normal judgment/insight ResultsFindings/Data:Laboratory Tests 01/04/21 1000:[Embedded Image Not Available]Laboratory Tests 01/04 01/04 01/04 01/04 1103 1000 1000 0744Chemistry Sodium (134 - 147 mmol/L) 138 Potassium (3.4 - 5.0 mmol/L) 4.3 Chloride (100 - 108 mmol/L) 104 Carbon Dioxide (21 - 32 mmol/L) 30 Anion Gap (4.0 - 15.0 GAP calc) 4.0 BUN (7 - 18 MG/DL) 23 H Creatinine (0.6 - 1.0 MG/DL) 0.6 Glomerular Filtr Rate (>60 estGFR) >=60 max estimate Glucose (70 - 110 MG/DL) 204 H POC Glucose (70 - 110 mg/dL) 215 H 165 H Calcium (8.5 - 10.1 MG/DL) 9.0 Lactate Dehydrogenase (84 - 246 437 HUnit/L) TSH (0.340 - 4.820 mcIU/ML) 1.460 01/03 1613 Chemistry POC Glucose (70 - 110 mg/dL) 203 H 224 H Laboratory Tests 01/04 1000 Coagulation INR (0.8 - 1.2 INR Unit) 1.05 PTT (Judi) (26 - 35 SECONDS) 38.4 H PT Patient/Control Mix (9.3 - 12.9 SECONDS) 11.8 Laboratory Tests 01/04 1000 Hematology WBC (3.5 - 11.0 K/mm3) 12.2 H RBC (4.70 - 6.10 M/mm3) 6.00 Hgb (10.4 - 14.9 G/DL) 15.9 H Hct (31.5 - 44.1 %) 53.1 H MCV (84.5 - 98.6 Fl) 88.5 MCH (27.0 - 34.2 pg) 26.5 L MCHC (31.5 - 34.0 G/DL) 29.9 L Plt Count (150 - 450 K/mm3) 173 Diagnosis, Assessment PlanHospital course to date: Impressions Acute hypoxic respiratory failurePneumonia due to covid-19 infectionSleep apneaMorbid obesity Plan on 7 L HF NC, titrate and maintain oxygenation >92%NIPPV PRN/HSs/p convalescent plasma, remdesivir, Antibiotics, ID followingDexamethasone 10 mg BID poGi prophylaxisDVT, off lovenox Diamox 250 IV every 12 hours for 4 doses to dampen bicarb, 2/4full code at 1431 RPT #: [id number] OF REPORT PRProgress Pced5403-25-83M94:25:00L.[id number] able for patient sebsLJCFGFZNBHMLQH4939-90-51E47:32:14 [facility] 2021-01-04 14:25:00 [id number] ancqGL/Qs5hOeFQ4Hpl6tBsB3vPzV YYc/j861Lv1p7pZHh+ZThQfufYMUgRk7sI1799-98-30X99:2 5:00 [facility] ([facility])Pulmonology Progress NoteREPORT#:[id number] REPORT STATUS: SignedDATE:01/04/21 TIME:1424 PATIENT: LORI DELUCA UNIT #: [id number]#: [id number] [address] AGE: 55 SEX: F ATTEND: Alfred Escobedo [facility] AUTHOR: Sonal Voss * ALL edits or amendments must be made on the electronic/computer document * Sonal Voss 01/04/21 1425:SubjectiveChief Complaint:7L/min HF NC, no distressBIPAP at night and PRN Review of Systems ROSConstitutional:Denies: generalized weakness. Skin:Denies: contusion, ecchymosis. Allergy/Immun:Denies: hives, itching. Eyes:Denies: visual loss/blurred, diplopia. Respiratory:Reports: TOURE (dyspnea on exertion). Denies: pleuritic pain. Cardiovascular:Reports: TOURE (dyspnea on exertion). Denies: chest pain. GI:Denies: abdominal pain. :Denies: frequency, pelvic pain. Musculoskeletal:Denies: joint pain, myalgias. Heme:Denies: bleeding, petechiae. Endocrine:Denies: heat intolerance, polyphagia. Neuro:Denies: confusion, headache. Objective GeneralVS/I O:Last Documented: Result Date Time Pulse Ox 94 01/04 1107 B/P 105/75 01/04 1107 B/P Mean 84.8 01/04 1107 O2 Delivery Nasal cannula 01/04 1107 Temp 36.4 01/04 1107 Pulse 61 01/04 1107 Resp 18 01/04 1107 O2 Flow Rate 8 01/04 0936 FiO2 64 01/03 0858 24 hour I O ending at 0700: 01/04 0700 01/03 1900 Intake Total 1500 Output Total 800 2600 Balance -800 -1100 Intake, Oral 1500 Number 0 Bowel Movements Number Voids Output, Urine 800 2600 PATIENT WEIGHT: Weight (lb): 400Weight (oz): 2.22Weight (kg): 181.437 Medications:Active Meds + DC'd Last 24 HrsAcetazolamide 250 MG Q12HR IV Sterile Water 2.5 MLFamotidine 20 MG BID PO Dexamethasone 10 MG BID PO Benzonatate 100 MG TID PO (DC) Ceftriaxone Sodium 1,000 MG Q24H IV (DC) Sterile Water 10 MLLisinopril 20 MG DAILY PO Sertraline HCl 50 MG DAILY PO Dextrose/Water 50 ML ONCE PRN IV (CKD) Insulin Human Lispro S/SCALE AC HS SUBQ Nutrition assessment:The data set between the solid lines has been imported from the dietitian's assessment. Any exceptions have been noted under Provider comments. BMI Calculated: 75.6Nutrition related diagnosis: Nutrition diagnosis details: Nutrition problem: Nutrition etiology: Nutrition signs and symptoms: Nutrition prescription: Dietitian name: Assessment completed: Provider comments on imported dietitian assessment: Physical ExamGeneral appearance: obeseHead/eyes: atraumatic, normocephalicENT: ENT: normal nose, normal sinusCardiovascular: normal heart sounds, normal S1/S2, regular rate rhythm, no rub, no gallopRespiratory/chest: aerating well, clear to auscultation, symmetric expansionAbdomen: soft, normal bowel soundsExtremities: edema, no cyanosis, no edemaMusculoskeletal: full range of motionNeuro/GREEN PRIZE PACKER: alert, oriented X 3, CNII-XII intactPsychiatry: normal affect, normal judgment/insight ResultsFindings/Data:Laboratory Tests 01/04/21 1000:[Embedded Image Not Available]Laboratory Tests 01/04 01/04 01/04 01/04 1103 1000 1000 0744Chemistry Sodium (134 - 147 mmol/L) 138 Potassium (3.4 - 5.0 mmol/L) 4.3 Chloride (100 - 108 mmol/L) 104 Carbon Dioxide (21 - 32 mmol/L) 30 Anion Gap (4.0 - 15.0 GAP calc) 4.0 BUN (7 - 18 MG/DL) 23 H Creatinine (0.6 - 1.0 MG/DL) 0.6 Glomerular Filtr Rate (>60 estGFR) >=60 max estimate Glucose (70 - 110 MG/DL) 204 H POC Glucose (70 - 110 mg/dL) 215 H 165 H Calcium (8.5 - 10.1 MG/DL) 9.0 Lactate Dehydrogenase (84 - 246 437 HUnit/L) TSH (0.340 - 4.820 mcIU/ML) 1.460 01/03 01/03 2032 1613 Chemistry POC Glucose (70 - 110 mg/dL) 203 H 224 H Laboratory Tests 01/04 1000 Coagulation INR (0.8 - 1.2 INR Unit) 1.05 PTT (Judi) (26 - 35 SECONDS) 38.4 H PT Patient/Control Mix (9.3 - 12.9 SECONDS) 11.8 Laboratory Tests 01/04 1000 Hematology WBC (3.5 - 11.0 K/mm3) 12.2 H RBC (4.70 - 6.10 M/mm3) 6.00 Hgb (10.4 - 14.9 G/DL) 15.9 H Hct (31.5 - 44.1 %) 53.1 H MCV (84.5 - 98.6 Fl) 88.5 MCH (27.0 - 34.2 pg) 26.5 L MCHC (31.5 - 34.0 G/DL) 29.9 L Plt Count (150 - 450 K/mm3) 173 Diagnosis, Assessment PlanHospital course to date: Impressions Acute hypoxic respiratory failurePneumonia due to covid-19 infectionSleep apneaMorbid obesity Plan on 7 L HF NC, titrate and maintain oxygenation >92%NIPPV PRN/HSs/p convalescent plasma, remdesivir, Antibiotics, ID followingDexamethasone 10 mg BID poGi prophylaxisDVT, off lovenox Diamox 250 IV every 12 hours for 4 doses to dampen bicarb, 2/4full code Maicol Louise 01/04/21 1702:Diagnosis, Assessment PlanHospital course to date:I reviewed the chart, examined the patient, I discussed the case with housestaff, I agree with above at 1431 at 1702 RPT #: [id number] OF REPORT PRProgress Gdtx9028-48-24Z52:25:00L.JUNB88292418-4146DJXzavv able for patient bhndJXAYMCQCKZQEWT2709-28-03E92:02:59 [facility] 2021-01-04 11:42:00 [id number] csF3qp6CmLAJP5fEhWbwtiAqwkLGj oaf4X4NIiaV5DeUc/57o5khkq22LxEnSus4211-77-84B48:4 2:00 [facility] ([facility])Hospitalist Progress NoteREPORT#:[id number] REPORT STATUS: SignedDATE:01/04/21 TIME:1142 PATIENT: LORI DELUCA UNIT #: [id number]#: [id number] [address] AGE: 55 SEX: F ATTEND: Alfred Escobedo [facility] AUTHOR: Yandy Johnson MD * ALL edits or amendments must be made on the electronic/computer document * SubjectiveChief Complaint:stable. On oxygen currently 7 LDenies any chest pain or shortness of breath Review of SystemsRespiratory:Reports: non productive cough. Cardiovascular:Denies: chest pain. GI:Denies: nausea, vomiting. Objective GeneralVS/I O:Vital Signs: Date Time Temp Pulse Resp B/P B/P Pulse O2 O2 Flow FiO2 Mean Ox Delivery Rate 01/04 1107 36.4 61 18 105/75 84.8 94 Nasal cannula 01/04 0936 High flow 8 nasal cannula 01/04 0747 70 16 140/75 96.9 92 Nasal cannula 01/04 0510 36.7 56 18 117/78 91.2 96 01/04 0021 High flow 7 nasal cannula 01/03 2356 36.4 66 19 111/76 87 90 High flow 7 nasal cannula 01/03 2027 36.8 66 18 119/74 88.9 90 01/03 2013 92 Nasal 7 cannula 01/03 1806 36.5 77 17 124/72 89.6 89 01/03 1746 90 01/03 1730 75 28 96 01/03 1715 74 25 97 01/03 1700 92 33 122/84 99 76 01/03 1614 37.0 01/03 1600 61 23 137/64 92 97 01/03 1500 93 27 140/81 104 97 01/03 1401 57 35 127/65 91 90 01/03 1300 70 37 110/59 78 93 01/03 1201 71 45 128/82 98 92 01/03 1159 36.5 01/03 1145 78 24 hour I O ending at 0700: 01/04 0700 01/03 1900 Intake Total 1500 Output Total 800 2600 Balance -800 -1100 Intake, Oral 1500 Number 0 Bowel Movements Number Voids Output, Urine 800 2600 PATIENT WEIGHT: Weight (lb): 400Weight (oz): 2.22Weight (kg): 181.437 Physical ExamCardiovascular: regular rate rhythm, no murmur, no rub, no thrillRespiratory: decreased breath sounds, hypoxiaAbdomen: non-tender, normal bowel sounds, soft, no distention, no guardingExtremities: moves all, no edemaNeuro/GREEN PRIZE PACKER: alert, oriented X 3, normal speech, no motor deficits, no sensory deficitsPsychiatry: normal affect Diagnosis, Assessment Plan Free Text DxA P NotesFree text DxA P notes: Acute hypoxic respiratory failure with COVID-19 pneumoniaWe will admit the patient Start the patient on steroidsWe will hold off on antibiotics as patient is afebrile white count is normal we will try to get CT scan of the chest to see if there are some infiltrates or not.We will get CT of the chest to assess the infiltrates As D-dimer is elevated and troponins are elevated will continue with therapeuticanticoagulationSymptomatic managementWe will ask infectious disease and pulmonary to evaluate Started the patient on remdesivirContinue supplemental oxygen to keep O2 sat above 90% and monitor respiratory status closelyProning NSTEMIPossibly type II in the setting of COVID-19 pneumonia with hypoxia. We will continue to trend troponins. Keep the patient on aspirin statin. We will get an echocardiogram. Monitor on telemetry. HypertensionResume lisinopril monitor blood pressure keep on as needed hydralazine PrediabetesNow that the patient will be on steroids we will keep on insulin sliding scale monitor blood sugars keep on diabetic diet COPDDoes not appear to be in COPD exacerbation will be on steroids supplemental oxygen. Monitor respiratory status closely. Pulmonary on board. DVT GI prophylaxisPatient is full codePatient was explained the plan in detail all medication effect side effects werediscussed all was well associated with the planNext of kin sister Madelyn ferguson [phone] 1Covid 19 PneumoniaCOPDHTNDMMorbid Obesity Plan------Continue on remdesevir-Continue COVID treatment protocol ( steroids, vit c/d/zinc)-Prone positioning as tolerated-Monitor inflammatory markers-Hiflow oxygen prn -Pulm and ID following-Accuchecks with ISS-Diabetic diet-Ensure tight glucose control-Resume home meds for BP jsclhmj-Jlget-xyakrn completion of therapy and clinical improvement 12/30/2020- acute respiratory failure secondary to covid. 15 L high flow oxygen, wean as tolerated, cont steriod/remdesivir. PUl following- Covid 19 Pneumonia. ID following- COPD, neb tx- HTN; cont home med- DM; SSI- Morbid Obesity; lifestyle modification- Depression. zoloft- Debility. PT to mobilizeDVT/PPX- lovenoxplan. cont remdesivir/wean oxygenWas moved to ICU yesterday as was repeatedly taken off oxygen, currently more stable and on my evaluation is keeping on her oxygenIf stable can downgrade to IMCU 12/31/2020- acute respiratory failure secondary to covid. 15 L high flow oxygen, wean as tolerated, cont steriod/remdesivir. There is day 3 of remdesivir.- Covid 19 Pneumonia. ID following- COPD, neb tx- HTN; cont home med- DM; SSI- Morbid Obesity; lifestyle modification- Depression. zoloft- Debility. PT to mobilizeDVT/PPX- lovenox weight-basedplan. cont remdesivir/wean oxygenCurrently in IMCU, if can wean oxygen down to 10 L, will transfer to telemetry CODE STATUSFull code Noted patient has no official past medical power of patent prosecution attorney but and next of kinis her sister Madelyn Ferguson which she told me can make decisions for her if he everbecomes incapacitated. 01/01/2021- acute respiratory failure secondary to covid. 15 L high flow oxygen, wean as tolerated, cont steriod/remdesivir. - Covid 19 Pneumonia. ID following- COPD, neb tx- HTN; cont home med- DM; SSI- Morbid Obesity; lifestyle modification- Depression. zoloft- Debility. PT to mobilizeDVT/PPX- lovenox weight-basedplan. cont remdesivir/wean oxygenCurrently in IMCU, if can wean oxygen down to 10 L, [place] CODE STATUSFull code 01/02/2021- acute respiratory failure secondary to covid. 12 L high flow oxygen, wean as tolerated, cont steriodS/p remdesivir- Covid 19 Pneumonia. ID following- COPD, neb tx- HTN; cont home med- DM; SSI- Morbid Obesity; lifestyle modification- Depression. zoloft- Debility. PT to mobilizeDVT/PPX- lovenox weight-basedContinue to wean oxygenCurrently in IMCU, can transfer to telemetry today 01/03/2021- acute respiratory failure secondary to covid. 10 L high flow oxygen, wean as tolerated, cont steriodS/p remdesivir- Covid 19 Pneumonia. ID following-Worsening thrombocytopenia, platelet 7 today, discontinue Lovenox , get HIT panel and consult hematology- COPD, neb tx- HTN; cont home med- DM; SSI- Morbid Obesity; lifestyle modification- Depression. zoloft- Debility. PT DVT/PPX-DC Lovenox because of thrombocytopenia, do SCDContinue to wean oxygenCurrently in IMCU, can transfer to telemetry today, will also consult physical therapy for home health and once we can get her oxygen requirements down to 5 L plan discharge CODE STATUSFull code 01/04/2021- acute respiratory failure secondary to covid. 7 L high flow oxygen, wean as tolerated, cont steriodS/p remdesivir- Covid 19 Pneumonia. ID following-Worsening thrombocytopenia, platelet 137 today, discontinue Lovenoxd yesterday,his platelet was 37 yesterday, but now back to normal., Follow HIT panel, follow hematology recommendation- COPD, neb tx- HTN; cont home med- DM; SSI- Morbid Obesity; lifestyle modification- Depression. zoloft- Debility. PT DVT/PPX-DCd Lovenox because of thrombocytopenia, do SCDContinue to wean oxygenPatient has no insurance so cannot do home health,, and once we can get her oxygen requirements down to 5 L plan discharge CODE STATUSFull code Noted patient has no official past medical power of patent prosecution attorney but and next of kinis her sister Madelyn Ferguson which she told me can make decisions for her if he everbecomes incapacitated. at 1147 RPT #: [id number] OF REPORT PRProgress Buku1694-07-83H68:42:00L.RGQT03795229-5676XQNkldo able for patient hookLYMZIAJXWWQWSF3785-08-45C93:47:44 [facility] 2021-01-04 10:50:00 [id number] gjKkKpjc6L1s4OB436ZvSSKkTlrCx RESrZET+VNlTQbZTyouIIaJVaLIUQdYtfS4693-96-77P17:5 0:00 [facility])Infectious Dis. Progress NoteREPORT#:[id number] REPORT STATUS: SignedDATE:01/04/21 TIME:1050 PATIENT: LORI DELUCA UNIT #: [id number]#: [id number] ROOM[facility]BED[facility]DOB: [birth year] AGE: 55 SEX: F ATTEND: Alfred Escobedo [facility] AUTHOR: Andrew Aguilar MD * ALL edits or amendments must be made on the electronic/computer document * SubjectiveChief Complaint:PneumoniaHPI:O2 requirements have decreased. Review of SystemsConstitutional:Denies: fever. Objective Physical ExamHead/Eyes: atraumatic, EOMI, normocephalicCardiovascular: regular rate rhythmRespiratory: on oxygenAbdomen: non-tender, softExtremities: moves all, normal capillary refill, no clubbing, no cyanosisNeuro/GREEN PRIZE PACKER: alert, oriented X 3Skin: normal color, normal turgor, no rash Diagnosis, Assessment PlanFree Text A P:Laboratory Tests 01/04/21 1000:[Embedded Image Not Available] 01/03/21 0445:[Embedded Image Not Available] Assessment:1. Pneumonia with covid-19 s/p CV plasma and remdesivir.2. Acute respiratory failure with hypoxia.3. Morbid obesity. Plan:1. Steroids.2. Monitor inflammatory markers. CRP has decreased.3. Pt completed treatment with ceftriaxone.4. Wean O2 as tolerated. at 1052 RPT #: [id number] OF REPORT PRProgress Btbb2433-75-88L13:50:00L.YVYN61551550-9112JZHqabd able for patient wkamIHFJHFECHTRYMS1374-48-28Q23:52:22 [facility] 2021-01-04 09:45:00 [id number] RTAhX2MNsjT/axSICW699PZ4J5S7v Ve6LcLs5YzHNwAKI3pUlWngYfUSs1iYGSX2686-44-46K74:4 5:[id number] [facility] [address] [place] [address] PATIENT NAME: LORI DELUCA ADMIT DATE: 12/27/20ACCOUNT NO: [id number] ROOM NO: L.PO8 AGE: 55 REPORT TYPE: CONSULTATION SEX: F ADMITTING PHYSICIAN: Alfred Escobedo MD ATTENDING PHYSICIAN: Alfred Escobedo MD CONSULTATION DATE: CONSULTING PHYSICIAN: Yanet Lim MD REASON FOR CONSULTATION: Thrombocytopenia. HISTORY OF PRESENT ILLNESS: Ms. Deluca is a 55-year-old [facility] with COVID-19 pneumonia andhypoxic respiratory failure. She also has a history of sleep apnea and morbidobesity. She was initially at ICU on CPAP and now transferred to the floor. The patient was noted to have normal platelet count on admission and has beennoted to have gradual decrease in the platelet count since admission. This isassociated with normal WBC and hemoglobin. She reports feeling significantlybetter and is currently on high-flow oxygen. PAST MEDICAL HISTORY: COPD, morbid obesity, sleep apnea, diabetes. PAST SURGICAL HISTORY: None. ALLERGIES: MORPHINE, CODEINE, ACETAMINOPHEN, TRAMADOL, BENADRYL. SOCIAL HISTORY: Denies any history of smoking, alcohol, or drug abuse. REVIEW OF SYSTEMS: As per the HPI, otherwise unremarkable. PHYSICAL EXAMINATION:GENERAL: Obese female, on oxygen.HEENT: Atraumatic and normocephalic. Pupils equal and reactive to light. Sclerae anicteric. Conjunctivae clear. Oropharynx moist.NECK: Supple. No JVD.RESPIRATORY: CTA bilaterally. No crackles, rhonchi, or wheezing.CARDIOVASCULAR: RRR. S1 and S2 normal.ABDOMEN: Soft. Bowel sounds present.EXTREMITIES: No CCE.NEUROLOGIC: Alert and oriented x3, grossly nonfocal. LABORATORY DATA: WBC 11.2, hemoglobin 14.9, platelets 37. IMPRESSION:1. Thrombocytopenia, multifactorial in etiology secondary to consumption fromacute illness, other differential includes disseminated intravascularcoagulation, coagulopathy, medications, heparin-induced thrombocytopenia though PATIENT NAME: LORI DELUCA suspicion is low.2. COVID pneumonia. Management per primary team.3. Acute hypoxic respiratory failure.4. Sleep apnea.5. Morbid obesity. RECOMMENDATIONS:1. Check following lab for further evaluation: Peripheral smear, LDH,haptoglobin, retic count, B12, folate, TSH, XU, PT, PTT, fibrinogen.2. Hold anticoagulation.3. Mechanical anticoagulation.4 Follow up on the HIT antibody panel.5. Monitor CBC and transfuse to keep hemoglobin more than 7 and platelets morethan 20 or higher if bleeding present.6. Supportive care. Thank you for allowing me to participate in Ms. Aponte's care. We willcontinue to follow. Dictated By: Yanet Lim MD WT: CON:LQING/DEBRA/NTSDD: 01/04/2021 09:45:16DT: 01/04/2021 14:55:57Conf#: [id number]/DID#: [id number] Authenticated by Yanet Lim MD On 02/11/2021 10:42:15 AM at 1042 PATIENT NAME: LORI DELUCA :55:00L.PR [id number] for patient qkfqQURISHAZQPTATP1955-56-34T69:42:46 [facility] 2021-01-03 13:19:00 [id number] 8JDHAsArnVHNHb6p5yUReSrKn8HTD pX9H9qQoDWM8Co3e1/qO+Tj+Jv4XNZzZc20884-31-84L95:1 9:00 [facility] Progress NoteREPORT#:[id number] REPORT STATUS: SignedDATE:01/03/21 TIME:1319 PATIENT: LORI DELUCA UNIT #: [id number]#: [id number] ROOM/BED: 311-1DOB: [birth year] AGE: 55 SEX: F ATTEND: Alfred Escobedo [facility] AUTHOR: Sonla Voss * ALL edits or amendments must be made on the electronic/computer document * SubjectiveChief Complaint:12L/min HF NC, no distressBIPAP Review of Systems ROSConstitutional:generalized weakness. Respiratory:Reports: TOURE (dyspnea on exertion). Denies: pleuritic pain. Cardiovascular:Reports: TOURE (dyspnea on exertion). Denies: chest pain. GI:Denies: abdominal pain. :Denies: frequency, pelvic pain. Musculoskeletal:Denies: joint pain, myalgias. Heme:Denies: bleeding, petechiae. Endocrine:Denies: heat intolerance, polyphagia. Neuro:Denies: confusion, headache. Objective GeneralVS/I O:Last Documented: Result Date Time Temp 36.5 01/03 1159 Pulse 78 01/03 1145 Pulse Ox 98 01/03 1130 Resp 31 01/03 1130 B/P 105/71 01/03 1100 B/P Mean 84 01/03 1100 FiO2 64 01/03 0858 O2 Delivery High flow nasal cannula 01/03 0858 O2 Flow Rate 12 01/03 0858 24 hour I O ending at 0700: 01/03 0700 01/02 1900 Intake Total 1100 Output Total 900 Balance 200 Intake, Oral 1100 Number 0 Bowel Movements Number 2 Incontinent Voids Output, Urine 900 PATIENT WEIGHT: Weight (lb): 400Weight (oz): 2.22Weight (kg): 181.437 Medications:Active Meds + DC'd Last 24 HrsDexamethasone 10 MG BID PO Benzonatate 100 MG TID PO Famotidine 20 MG BID PO Ceftriaxone Sodium 1,000 MG Q24H IV Sterile Water 10 MLLisinopril 20 MG DAILY PO Sertraline HCl 50 MG DAILY PO Dextrose/Water 50 ML ONCE PRN IV (CKD) Insulin Human Lispro S/SCALE AC HS SUBQ Enoxaparin Sodium 180 MG Q12HR SUBQ (DC) Nutrition assessment:The data set between the solid lines has been imported from the dietitian's assessment. Any exceptions have been noted under Provider comments. BMI Calculated: 75.6Nutrition related diagnosis: Nutrition diagnosis details: Nutrition problem: Nutrition etiology: Nutrition signs and symptoms: Nutrition prescription: Dietitian name: Assessment completed: Provider comments on imported dietitian assessment: Physical ExamGeneral appearance: obese, alert, awake, orientedHead/eyes: atraumatic, normocephalicENT: ENT: normal nose, normal sinusCardiovascular: normal heart sounds, normal S1/S2, regular rate rhythm, no rub, no gallopRespiratory/chest: aerating well, clear to auscultation, symmetric expansionAbdomen: soft, normal bowel soundsExtremities: edema, no cyanosis, no edemaMusculoskeletal: full range of motionNeuro/GREEN PRIZE PACKER: alert, oriented X 3, CNII-XII intactPsychiatry: normal affect, normal judgment/insight ResultsFindings/Data:Laboratory Tests 01/03/21 0445:[Embedded Image Not Available]Laboratory Tests 01/03 01/03 01/03 01/02 1203 0745 0445 2000Chemistry Sodium (134 - 147 mmol/L) 134 Potassium (3.4 - 5.0 mmol/L) 4.7 Chloride (100 - 108 mmol/L) 102 Carbon Dioxide (21 - 32 mmol/L) 30 Anion Gap (4.0 - 15.0 GAP calc) 2.0 L BUN (7 - 18 MG/DL) 17 Creatinine (0.6 - 1.0 MG/DL) 0.6 Glomerular Filtr Rate (>60 estGFR) >=60 max estimate Glucose (70 - 110 MG/DL) 187 H POC Glucose (70 - 110 mg/dL) 205 H 172 H 209 H Calcium (8.5 - 10.1 MG/DL) 8.8 01/02 1618 Chemistry POC Glucose (70 - 110 mg/dL) 208 H Laboratory Tests 01/03 0445 Hematology WBC (3.5 - 11.0 K/mm3) 11.2 H RBC (4.70 - 6.10 M/mm3) 5.59 Hgb (10.4 - 14.9 G/DL) 14.9 Hct (31.5 - 44.1 %) 49.2 H MCV (84.5 - 98.6 Fl) 88.0 MCH (27.0 - 34.2 pg) 26.7 L MCHC (31.5 - 34.0 G/DL) 30.3 L RDW (11.5 - 14.5 SD) 14.4 Plt Count (150 - 450 K/mm3) 37 L MPV (7.0 - 10.5 fL) 9.80 Neut % (Auto) (40 - 76 %) 82.0 H Lymph % (Auto) (20.5 - 51.1 %) 8.4 L [place] % (Auto) (1.7 - 9.3 %) 4.5 Eos % (Auto) (0.0 - 6.0 %) 0.0 Baso % (Auto) (0.0 - 2.0 %) 0.3 Neut # (Auto) (1.8 - 7.6 K/mm3) 9.2 H Lymph # (Auto) (0.6 - 3.2 K/mm3) 0.9 [place] # (Auto) (0.3 - 1.1 K/mm3) 0.5 Eos # (Auto) (0.0 - 0.4 K/mm3) 0.0 Baso # (Auto) (0.0 - 0.1 K/mm3) 0.0 Abs Immat Gran (auto) (0.00 - 0.03 x10 3/uL) 0.54 H Add Manual Diff (CRITERIA DIFF/SCN) NO Immature Gran % (0.0 - 5.0 %) 4.8 Nucleated RBC % (0.0 - 1.0 /100WBC%) 0.2 Diagnosis, Assessment PlanHospital course to date: Impressions Acute hypoxic respiratory failurePneumonia due to covid-19 infectionSleep apneaMorbid obesity Plan on 12 L HF NC, titrate and maintain oxygenation >92%NIPPV PRN/HSs/p convalescent plasma, remdesivir, Antibiotics, ID followingDexamethasoneGi prophylaxisDVT, on lovenoxon diamoxfull code at 1326 RPT #: [id number] OF REPORT PRProgress Zway0615-45-50A10:19:00L.[id number] able for patient yowtHCFNGKFFTNZPZA3976-26-27B82:26:57 [facility] 2021-01-03 13:19:00 [id number] qfY8FHG0461W1S5Z9y4v39Y4u5/yk qsI7FZZzR5SiNBFm6CDu0sd699ROg5cupj3985-08-50V42:1 9:00 [facility] ([facility])Pulmonology Progress NoteREPORT#:[id number] REPORT STATUS: SignedDATE:01/03/21 TIME:131 PATIENT: LORI DELUCA UNIT #: [id number]#: [id number] [address] [birth year] AGE: 55 SEX: F ATTEND: Alfred Escobedo [facility] AUTHOR: Sonal Voss * ALL edits or amendments must be made on the electronic/computer document * Sonal Voss 01/03/21 1319:SubjectiveChief Complaint:12L/min HF NC, no distressBIPAP Review of Systems ROSConstitutional:generalized weakness. Respiratory:Reports: TOURE (dyspnea on exertion). Denies: pleuritic pain. Cardiovascular:Reports: TOURE (dyspnea on exertion). Denies: chest pain. GI:Denies: abdominal pain. :Denies: frequency, pelvic pain. Musculoskeletal:Denies: joint pain, myalgias. Heme:Denies: bleeding, petechiae. Endocrine:Denies: heat intolerance, polyphagia. Neuro:Denies: confusion, headache. Objective GeneralVS/I O:Last Documented: Result Date Time Temp 36.5 01/03 1159 Pulse 78 01/03 1145 Pulse Ox 98 01/03 1130 Resp 31 01/03 1130 B/P 105/71 01/03 1100 B/P Mean 84 01/03 1100 FiO2 64 01/03 0858 O2 Delivery High flow nasal cannula 01/03 0858 O2 Flow Rate 12 01/03 0858 24 hour I O ending at 0700: 01/03 0700 01/02 1900 Intake Total 1100 Output Total 900 Balance 200 Intake, Oral 1100 Number 0 Bowel Movements Number 2 Incontinent Voids Output, Urine 900 PATIENT WEIGHT: Weight (lb): 400Weight (oz): 2.22Weight (kg): 181.437 Medications:Active Meds + DC'd Last 24 HrsDexamethasone 10 MG BID PO Benzonatate 100 MG TID PO Famotidine 20 MG BID PO Ceftriaxone Sodium 1,000 MG Q24H IV Sterile Water 10 MLLisinopril 20 MG DAILY PO Sertraline HCl 50 MG DAILY PO Dextrose/Water 50 ML ONCE PRN IV (CKD) Insulin Human Lispro S/SCALE AC HS SUBQ Enoxaparin Sodium 180 MG Q12HR SUBQ (DC) Nutrition assessment:The data set between the solid lines has been imported from the dietitian's assessment. Any exceptions have been noted under Provider comments. BMI Calculated: 75.6Nutrition related diagnosis: Nutrition diagnosis details: Nutrition problem: Nutrition etiology: Nutrition signs and symptoms: Nutrition prescription: Dietitian name: Assessment completed: Provider comments on imported dietitian assessment: Physical ExamGeneral appearance: obese, alert, awake, orientedHead/eyes: atraumatic, normocephalicENT: ENT: normal nose, normal sinusCardiovascular: normal heart sounds, normal S1/S2, regular rate rhythm, no rub, no gallopRespiratory/chest: aerating well, clear to auscultation, symmetric expansionAbdomen: soft, normal bowel soundsExtremities: edema, no cyanosis, no edemaMusculoskeletal: full range of motionNeuro/GREEN PRIZE PACKER: alert, oriented X 3, CNII-XII intactPsychiatry: normal affect, normal judgment/insight ResultsFindings/Data:Laboratory Tests 01/03/21444:[Embedded Image Not Available]Laboratory Tests 01/03 01/03 01/03 01/02 1203 0745 3068 2000Chemistry Sodium (134 - 147 mmol/L) 134 Potassium (3.4 - 5.0 mmol/L) 4.7 Chloride (100 - 108 mmol/L) 102 Carbon Dioxide (21 - 32 mmol/L) 30 Anion Gap (4.0 - 15.0 GAP calc) 2.0 L BUN (7 - 18 MG/DL) 17 Creatinine (0.6 - 1.0 MG/DL) 0.6 Glomerular Filtr Rate (>60 estGFR) >=60 max estimate Glucose (70 - 110 MG/DL) 187 H POC Glucose (70 - 110 mg/dL) 205 H 172 H 209 H Calcium (8.5 - 10.1 MG/DL) 8.8 01/02 1618 Chemistry POC Glucose (70 - 110 mg/dL) 208 H Laboratory Tests 01/03 445 Hematology WBC (3.5 - 11.0 K/mm3) 11.2 H RBC (4.70 - 6.10 M/mm3) 5.59 Hgb (10.4 - 14.9 G/DL) 14.9 Hct (31.5 - 44.1 %) 49.2 H MCV (84.5 - 98.6 Fl) 88.0 MCH (27.0 - 34.2 pg) 26.7 L MCHC (31.5 - 34.0 G/DL) 30.3 L RDW (11.5 - 14.5 SD) 14.4 Plt Count (150 - 450 K/mm3) 37 L MPV (7.0 - 10.5 fL) 9.80 Neut % (Auto) (40 - 76 %) 82.0 H Lymph % (Auto) (20.5 - 51.1 %) 8.4 L [place] % (Auto) (1.7 - 9.3 %) 4.5 Eos % (Auto) (0.0 - 6.0 %) 0.0 Baso % (Auto) (0.0 - 2.0 %) 0.3 Neut # (Auto) (1.8 - 7.6 K/mm3) 9.2 H Lymph # (Auto) (0.6 - 3.2 K/mm3) 0.9 [place] # (Auto) (0.3 - 1.1 K/mm3) 0.5 Eos # (Auto) (0.0 - 0.4 K/mm3) 0.0 Baso # (Auto) (0.0 - 0.1 K/mm3) 0.0 Abs Immat Gran (auto) (0.00 - 0.03 x10 3/uL) 0.54 H Add Manual Diff (CRITERIA DIFF/SCN) NO Immature Gran % (0.0 - 5.0 %) 4.8 Nucleated RBC % (0.0 - 1.0 /100WBC%) 0.2 Diagnosis, Assessment PlanHospital course to date: Impressions Acute hypoxic respiratory failurePneumonia due to covid-19 infectionSleep apneaMorbid obesity Plan on 12 L HF NC, titrate and maintain oxygenation >92%NIPPV PRN/HSs/p convalescent plasma, remdesivir, Antibiotics, ID followingDexamethasoneGi prophylaxisDVT, on lovenoxon diamoxfull code Maicol Louise 01/03/21 1638:Diagnosis, Assessment PlanHospital course to date:I reviewed the chart, I examined the patient, I discussed the case with the housestaff, I agree with aboveStart Diamox 250 IV every 12 hours for 4 doses to dampen bicarbThrombocytopenia off LovenoxOn dexamethasoneTitrate FiO2 down as tolerated currently 7 L at 1326 at 1638 RPT #: [id number] OF REPORT PRProgress [id number]:19:00L.[id number] able for patient lonmABHTUNLVTEJCVT0045-59-30W40:39:13 [facility] 2021-01-03 12:16:00 [id number] WnQ+cWcozOHUUw67ieaAXRQp5lcyr s2sdVjggTFSaXc5CFxNG95JHf/9qqET6Ou2266-40-30T89:1 6:00 [facility] ([facility])Hospitalist Progress NoteREPORT#:[id number] REPORT STATUS: SignedDATE:01/03/21 TIME:1216 PATIENT: LORI DELUCA UNIT #: [id number]#: [id number] [address] [birth year] AGE: 55 SEX: F ATTEND: Alfred Escobedo [facility] AUTHOR: Yandy Johnson MD * ALL edits or amendments must be made on the electronic/computer document * SubjectiveChief Complaint:stable. On high flow oxygen currently 10 LDenies any complaints today Review of SystemsRespiratory:Denies: SOB. Cardiovascular:Denies: chest pain. GI:Denies: nausea, vomiting. Neuro:Denies: headache. Objective GeneralVS/I O:Vital Signs: Date Time Temp Pulse Resp B/P B/P Pulse O2 O2 Flow FiO2 Mean Ox Delivery Rate 01/03 1159 36.5 01/03 1145 78 01/03 1130 55 31 98 01/03 1100 71 44 105/71 84 94 01/03 1030 55 38 98 01/03 1001 57 35 135/69 96 95 01/03 0930 65 36 93 01/03 0900 85 29 140/86 107 97 01/03 0858 97 High flow 12 64 nasal cannula 01/03 0830 High flow 12 64 nasal cannula 01/03 0830 48 22 96 01/03 0800 86 29 135/77 100 95 01/03 0745 85 32 94 01/03 0744 36.4 01/03 0730 68 29 91 01/03 0715 57 26 99 06/19 0700 58 22 142/69 96 100 / 0500 51 92 / 0445 57 95 /19 0430 77 06/ 0423 36.5 01/03 0415 93 06/19 0400 55 23 125/73 93 06/19 0300 94 06/19 0245 56 94 06/19 0230 59 18 94 06/ 0215 54 94 06/19 0200 55 136/80 94 06/19 0145 55 23 95 06/19 0130 53 94 /19 0124 57 24 146/80 96 06/19 0115 54 26 96 / 0100 65 25 97 / 0038 50 96 / 0036 36.6 01/03 0030 22 01/03 0015 64 95 01/03 0000 55 01/02 2311 High flow 12 68 nasal cannula 01/02 2100 118/72 87 01/02 2022 55 27 95 01/02 2015 58 26 98 01/02 2006 36.6 01/02 2000 121/80 93 01/03 2000 57 24 100 01/02 1945 61 23 100 01/02 1930 56 26 100 01/02 1926 100 High flow 12 68 nasal cannula 01/02 1915 60 01/02 1900 126/86 99 01/02 1900 61 100 01/02 1845 59 01/02 1830 63 36 97 01/02 1800 62 21 96 01/02 1730 65 36 97 01/02 1712 67 25 136/60 86 97 18 1617 36.5 01/02 1615 58 40 99 01/02 1600 53 38 98 01/02 1530 54 43 91 01/02 1500 58 36 93 01/02 1430 66 31 94 01/02 1400 55 37 95 01/02 1345 60 34 94 01/02 1315 75 51 90 01/02 1300 79 37 88 24 hour I O ending at 0700: 01/03 0700 01/02 1900 Intake Total 1100 Output Total 900 Balance 200 Intake, Oral 1100 Number 0 Bowel Movements Number 2 Incontinent Voids Output, Urine 900 PATIENT WEIGHT: Weight (lb): 400Weight (oz): 2.22Weight (kg): 181.437 Physical ExamGeneral appearance: alert, awakeCardiovascular: regular rate rhythm, no murmur, no rub, no thrillRespiratory: decreased breath sounds, hypoxiaAbdomen: non-tender, normal bowel sounds, soft, no distention, no guardingExtremities: moves all, no edemaNeuro/GREEN PRIZE PACKER: alert, oriented X 3, normal speech, no motor deficits, no sensory deficitsPsychiatry: normal affect Diagnosis, Assessment Plan Free Text DxA P NotesFree text DxA P notes: Acute hypoxic respiratory failure with COVID-19 pneumoniaWe will admit the patient Start the patient on steroidsWe will hold off on antibiotics as patient is afebrile white count is normal we will try to get CT scan of the chest to see if there are some infiltrates or not.We will get CT of the chest to assess the infiltrates As D-dimer is elevated and troponins are elevated will continue with therapeuticanticoagulationSymptomatic managementWe will ask infectious disease and pulmonary to evaluate Started the patient on remdesivirContinue supplemental oxygen to keep O2 sat above 90% and monitor respiratory status closelyProning NSTEMIPossibly type II in the setting of COVID-19 pneumonia with hypoxia. We will continue to trend troponins. Keep the patient on aspirin statin. We will get an echocardiogram. Monitor on telemetry. HypertensionResume lisinopril monitor blood pressure keep on as needed hydralazine PrediabetesNow that the patient will be on steroids we will keep on insulin sliding scale monitor blood sugars keep on diabetic diet COPDDoes not appear to be in COPD exacerbation will be on steroids supplemental oxygen. Monitor respiratory status closely. Pulmonary on board. DVT GI prophylaxisPatient is full codePatient was explained the plan in detail all medication effect side effects werediscussed all was well associated with the planNext of kin sister Madelyn ferguson [phone] 1Covid 19 PneumoniaCOPDHTNDMMorbid Obesity Plan------Continue on remdesevir-Continue COVID treatment protocol ( steroids, vit c/d/zinc)-Prone positioning as tolerated-Monitor inflammatory markers-Hiflow oxygen prn -Pulm and ID following-Accuchecks with ISS-Diabetic diet-Ensure tight glucose control-Resume home meds for BP uzezofd-Hnulf-oiugej completion of therapy and clinical improvement 12/30/2020- acute respiratory failure secondary to covid. 15 L high flow oxygen, wean as tolerated, cont steriod/remdesivir. PUl following- Covid 19 Pneumonia. ID following- COPD, neb tx- HTN; cont home med- DM; SSI- Morbid Obesity; lifestyle modification- Depression. zoloft- Debility. PT to mobilizeDVT/PPX- lovenoxplan. cont remdesivir/wean oxygenWas moved to ICU yesterday as was repeatedly taken off oxygen, currently more stable and on my evaluation is keeping on her oxygenIf stable can downgrade to IMCU 12/31/2020- acute respiratory failure secondary to covid. 15 L high flow oxygen, wean as tolerated, cont steriod/remdesivir. There is day 3 of remdesivir.- Covid 19 Pneumonia. ID following- COPD, neb tx- HTN; cont home med- DM; SSI- Morbid Obesity; lifestyle modification- Depression. zoloft- Debility. PT to mobilizeDVT/PPX- lovenox weight-basedplan. cont remdesivir/wean oxygenCurrently in IMCU, if can wean oxygen down to 10 L, will transfer to telemetry CODE STATUSFull code Noted patient has no official past medical power of patent prosecution attorney but and next of kinis her sister Madelyn Ferguson which she told me can make decisions for her if he everbecomes incapacitated. 01/01/2021- acute respiratory failure secondary to covid. 15 L high flow oxygen, wean as tolerated, cont steriod/remdesivir. - Covid 19 Pneumonia. ID following- COPD, neb tx- HTN; cont home med- DM; SSI- Morbid Obesity; lifestyle modification- Depression. zoloft- Debility. PT to mobilizeDVT/PPX- lovenox weight-basedplan. cont remdesivir/wean oxygenCurrently in IMCU, if can wean oxygen down to 10 L, [facility] STATUSFull code 01/02/2021- acute respiratory failure secondary to covid. 12 L high flow oxygen, wean as tolerated, cont steriodS/p remdesivir- Covid 19 Pneumonia. ID following- COPD, neb tx- HTN; cont home med- DM; SSI- Morbid Obesity; lifestyle modification- Depression. zoloft- Debility. PT to mobilizeDVT/PPX- lovenox weight-basedContinue to wean oxygenCurrently in IMCU, can transfer to telemetry today 01/03/2021- acute respiratory failure secondary to covid. 10 L high flow oxygen, wean as tolerated, cont steriodS/p remdesivir- Covid 19 Pneumonia. ID following-Worsening thrombocytopenia, platelet 7 today, discontinue Lovenox , get HIT panel and consult hematology- COPD, neb tx- HTN; cont home med- DM; SSI- Morbid Obesity; lifestyle modification- Depression. zoloft- Debility. PT DVT/PPX-DC Lovenox because of thrombocytopenia, do SCDContinue to wean oxygenCurrently in IMCU, can transfer to telemetry today, will also consult physical therapy for home health and once we can get her oxygen requirements down to 5 L plan discharge CODE STATUSFull code Noted patient has no official past medical power of patent prosecution attorney but and next of kinis her sister Madelyn Ferguson which she told me can make decisions for her if he everbecomes incapacitated. at 1223 RPT #: [id number] OF REPORT PRProgress [id number]:16:00L.[id number] able for patient lqbtAGBGKEBJWTXRJD1935-83-72A76:23:46 [facility] 2021-01-02 14:15:00 [id number]+ 7CxcnlbSKM+jtvmnr5OhGqSB5EZvg 1W08n2W9bh0hGFlMsVX3UB19P0ghkbDHF/5985-92-10U64:1 5:00 [facility] ([facility])Pulmonology Progress NoteREPORT#:[id number] REPORT STATUS: SignedDATE:01/02/21 TIME:1415 PATIENT: LORI DELUCA UNIT #: [id number]#: [id number] ROOM[facility]BED: [facility]DOB: [birth year] AGE: 55 SEX: F ATTEND: Alfred Escobedo [facility] AUTHOR: Sergio Love * ALL edits or amendments must be made on the electronic/computer document * SubjectiveChief Complaint:12L/min NC, no distressStates she wore her BiPAP x5 hours last night Review of Systems ROSConstitutional:generalized weakness. Respiratory:Denies: pleuritic pain. Cardiovascular:Denies: chest pain. GI:Denies: abdominal pain. Objective GeneralVS/I O:Last Documented: Result Date Time Temp 36.5 01/02 1142 FiO2 90 01/02 0830 O2 Delivery High flow nasal cannula 01/02 0830 O2 Flow Rate 12 01/02 0830 Pulse Ox 98 01/02 0642 B/P 129/82 01/02 0400 B/P Mean 97 01/02 0400 Pulse 58 01/02 0400 Resp 33 01/02 0400 24 hour I O ending at 0700: 01/02 0700 01/01 1900 Intake Total 240 400 Output Total 650 250 Balance -410 150 Intake, Oral 240 400 Number 1 Bowel Movements Number 2 Incontinent Voids Number Voids 2 Output, Urine 650 250 PATIENT WEIGHT: Weight (lb): 400Weight (oz): 2.22Weight (kg): 181.437 Medications:Active Meds + DC'd Last 24 HrsAcetazolamide 250 MG Q12HR IV (DC) Sterile Water 2.5 MLDexamethasone 10 MG BID PO Benzonatate 100 MG TID PO Famotidine 20 MG BID PO Ceftriaxone Sodium 1,000 MG Q24H IV Sterile Water 10 MLLisinopril 20 MG DAILY PO Sertraline HCl 50 MG DAILY PO Dextrose/Water 50 ML ONCE PRN IV (CKD) Insulin Human Lispro S/SCALE AC HS SUBQ Enoxaparin Sodium 180 MG Q12HR SUBQ Nutrition assessment:The data set between the solid lines has been imported from the dietitian's assessment. Any exceptions have been noted under Provider comments. BMI Calculated: 75.6Nutrition related diagnosis: Nutrition diagnosis details: Nutrition problem: Nutrition etiology: Nutrition signs and symptoms: Nutrition prescription: Dietitian name: Assessment completed: Provider comments on imported dietitian assessment: Physical ExamHead/eyes: atraumatic, normocephalicENT: ENT: normal nose, normal sinusCardiovascular: normal heart sounds, normal S1/S2, regular rate rhythm, no rub, no gallopAbdomen: soft, normal bowel soundsExtremities: edema, no cyanosis, no edemaNeuro/GREEN PRIZE PACKER: alert, oriented X 3, CNII-XII intact ResultsFindings/Data:Laboratory Tests 01/02/21 0520:[Embedded Image Not Available]Laboratory Tests 01/01 1606 Blood Gas Puncture Site (DESCRIPTION ARTKIT) Left Radial ABG pH (7.35 - 7.45 pH units) 7.41 ABG pCO2 (35 - 45 mmHg) 56 H ABG pO2 (80 - 100 mmHg) 50 L ABG PO2/FiO2 Ratio (200 mm/Hg) 55.6 L ABG HCO3 (22.0 - 26.0 mmol/L) 34.9 H ABG O2 Saturation (90 - 100 %) 85 L ABG Base Excess (-3.0 - 3.0 mmol/L) 8.3 H Tosha Test (POSITIVE Circ.CHK) Yes Vent Mode (Vent Mode Descript) Nasal Cannula FiO2 (21 - 100 % (calc)) 90 Laboratory Tests 01/02 01/02 01/02 01/01 01/01 1143 0733 0520 2134 1747Chemistry Sodium (134 - 147 mmol/L) 138 Potassium (3.4 - 5.0 mmol/L) 4.5 Chloride (100 - 108 mmol/L) 101 Carbon Dioxide (21 - 32 mmol/L) 34 H Anion Gap (4.0 - 15.0 GAP calc) 3.0 L BUN (7 - 18 MG/DL) 20 H Creatinine (0.6 - 1.0 MG/DL) 0.5 L Glomerular Filtr Rate (>60 >=60 max estimateestGFR) Glucose (70 - 110 MG/DL) 176 H POC Glucose (70 - 110 mg/dL) 247 H 143 H 179 H 156 H Calcium (8.5 - 10.1 MG/DL) 8.9 Laboratory Tests 01/02 0520 Hematology WBC (3.5 - 11.0 K/mm3) 9.1 RBC (4.70 - 6.10 M/mm3) 5.16 Hgb (10.4 - 14.9 G/DL) 14.0 Hct (31.5 - 44.1 %) 46.7 H MCV (84.5 - 98.6 Fl) 90.5 MCH (27.0 - 34.2 pg) 27.1 MCHC (31.5 - 34.0 G/DL) 30.0 L RDW (11.5 - 14.5 SD) 14.3 Plt Count (150 - 450 K/mm3) 86 L MPV (7.0 - 10.5 fL) 11.10 H Neut % (Auto) (40 - 76 %) 81.7 H Lymph % (Auto) (20.5 - 51.1 %) 8.9 L [place] % (Auto) (1.7 - 9.3 %) 4.9 Eos % (Auto) (0.0 - 6.0 %) 0.0 Baso % (Auto) (0.0 - 2.0 %) 0.3 Neut # (Auto) (1.8 - 7.6 K/mm3) 7.5 Lymph # (Auto) (0.6 - 3.2 K/mm3) 0.8 [place] # (Auto) (0.3 - 1.1 K/mm3) 0.5 Eos # (Auto) (0.0 - 0.4 K/mm3) 0.0 Baso # (Auto) (0.0 - 0.1 K/mm3) 0.0 Abs Immat Gran (auto) (0.00 - 0.03 x10 3/uL) 0.38 H Add Manual Diff (CRITERIA DIFF/SCN) NO Immature Gran % (0.0 - 5.0 %) 4.2 Nucleated RBC % (0.0 - 1.0 /100WBC%) 0.3 Platelet Estimate (ADEQUATE THOUSAND) DECREASED Plt Morphology Comment AGGREGATES Diagnosis, Assessment PlanHospital course to date:1. Acute hypoxic respiratory failure2. Acute viral pneumonia due to COVID-19 infection3. Sleep apnea Plan Comfortable on 12L/min NC, NRB; titrate oxygen to maintan SpO2 > 92%Needs to wear her NIPPV QHS and for naps during the dayCTA without pulmonary embolism, does show bilateral patchy infiltrates consistent with COVID-19S/p convalescent plasma, remdesivirS/p diamox x2, follow up labs in AMContinue Dexamethasone BIDContinue ceftraixoneInfectious disease on boardEnhanced anticoagulationGI prophylaxis IMCU at 1707 RPT #: [id number] OF REPORT PRProgress [id number]:15:00L.[id number] able for patient tovmYHYIWWHKQOYDUW3404-54-36M22:07:48 [facility] 2021-01-02 14:15:00 [id number] lKfHkOGiB/1UURn7eWwdyEGxzZeJL waB62enQvQPeX9s0cFh+LbREBS/fplhNGC5752-23-73K66:1 5:00 [facility] Progress NoteREPORT#:[id number] REPORT STATUS: SignedDATE:01/02/21 TIME:1414 PATIENT: LORI DELUCA UNIT #: [id number]#: [id number] [address] [birth year] AGE: 55 SEX: F ATTEND: Alfred Escobedo [facility] AUTHOR: Sergio Love * ALL edits or amendments must be made on the electronic/computer document * Sergio Love 01/02/21 1415:SubjectiveChief Complaint:12L/min NC, no distressStates she wore her BiPAP x5 hours last night Review of Systems ROSConstitutional:generalized weakness. Respiratory:Denies: pleuritic pain. Cardiovascular:Denies: chest pain. GI:Denies: abdominal pain. Objective GeneralVS/I O:Last Documented: Result Date Time Temp 36.5 01/02 1142 FiO2 90 01/02 0830 O2 Delivery High flow nasal cannula 01/02 0830 O2 Flow Rate 12 01/02 0830 Pulse Ox 98 01/02 0642 B/P 129/82 01/02 0400 B/P Mean 97 01/02 0400 Pulse 58 01/02 0400 Resp 33 01/02 0400 24 hour I O ending at 0700: 01/02 0700 01/01 1900 Intake Total 240 400 Output Total 650 250 Balance -410 150 Intake, Oral 240 400 Number 1 Bowel Movements Number 2 Incontinent Voids Number Voids 2 Output, Urine 650 250 PATIENT WEIGHT: Weight (lb): 400Weight (oz): 2.22Weight (kg): 181.437 Medications:Active Meds + DC'd Last 24 HrsAcetazolamide 250 MG Q12HR IV (DC) Sterile Water 2.5 MLDexamethasone 10 MG BID PO Benzonatate 100 MG TID PO Famotidine 20 MG BID PO Ceftriaxone Sodium 1,000 MG Q24H IV Sterile Water 10 MLLisinopril 20 MG DAILY PO Sertraline HCl 50 MG DAILY PO Dextrose/Water 50 ML ONCE PRN IV (CKD) Insulin Human Lispro S/SCALE AC HS SUBQ Enoxaparin Sodium 180 MG Q12HR SUBQ Nutrition assessment:The data set between the solid lines has been imported from the dietitian's assessment. Any exceptions have been noted under Provider comments. BMI Calculated: 75.6Nutrition related diagnosis: Nutrition diagnosis details: Nutrition problem: Nutrition etiology: Nutrition signs and symptoms: Nutrition prescription: Dietitian name: Assessment completed: Provider comments on imported dietitian assessment: Physical ExamHead/eyes: atraumatic, normocephalicENT: ENT: normal nose, normal sinusCardiovascular: normal heart sounds, normal S1/S2, regular rate rhythm, no rub, no gallopAbdomen: soft, normal bowel soundsExtremities: edema, no cyanosis, no edemaNeuro/GREEN PRIZE PACKER: alert, oriented X 3, CNII-XII intact ResultsFindings/Data:Laboratory Tests 01/02/21 0520:[Embedded Image Not Available]Laboratory Tests 01/01 1606 Blood Gas Puncture Site (DESCRIPTION ARTKIT) Left Radial ABG pH (7.35 - 7.45 pH units) 7.41 ABG pCO2 (35 - 45 mmHg) 56 H ABG pO2 (80 - 100 mmHg) 50 L ABG PO2/FiO2 Ratio (200 mm/Hg) 55.6 L ABG HCO3 (22.0 - 26.0 mmol/L) 34.9 H ABG O2 Saturation (90 - 100 %) 85 L ABG Base Excess (-3.0 - 3.0 mmol/L) 8.3 H Tosha Test (POSITIVE Circ.CHK) Yes Vent Mode (Vent Mode Descript) Nasal Cannula FiO2 (21 - 100 % (calc)) 90 Laboratory Tests 01/02 01/02 01/02 01/01 01/01 1143 0733 0520 2134 1747Chemistry Sodium (134 - 147 mmol/L) 138 Potassium (3.4 - 5.0 mmol/L) 4.5 Chloride (100 - 108 mmol/L) 101 Carbon Dioxide (21 - 32 mmol/L) 34 H Anion Gap (4.0 - 15.0 GAP calc) 3.0 L BUN (7 - 18 MG/DL) 20 H Creatinine (0.6 - 1.0 MG/DL) 0.5 L Glomerular Filtr Rate (>60 >=60 max estimateestGFR) Glucose (70 - 110 MG/DL) 176 H POC Glucose (70 - 110 mg/dL) 247 H 143 H 179 H 156 H Calcium (8.5 - 10.1 MG/DL) 8.9 Laboratory Tests 01/02 0520 Hematology WBC (3.5 - 11.0 K/mm3) 9.1 RBC (4.70 - 6.10 M/mm3) 5.16 Hgb (10.4 - 14.9 G/DL) 14.0 Hct (31.5 - 44.1 %) 46.7 H MCV (84.5 - 98.6 Fl) 90.5 MCH (27.0 - 34.2 pg) 27.1 MCHC (31.5 - 34.0 G/DL) 30.0 L RDW (11.5 - 14.5 SD) 14.3 Plt Count (150 - 450 K/mm3) 86 L MPV (7.0 - 10.5 fL) 11.10 H Neut % (Auto) (40 - 76 %) 81.7 H Lymph % (Auto) (20.5 - 51.1 %) 8.9 L [place] % (Auto) (1.7 - 9.3 %) 4.9 Eos % (Auto) (0.0 - 6.0 %) 0.0 Baso % (Auto) (0.0 - 2.0 %) 0.3 Neut # (Auto) (1.8 - 7.6 K/mm3) 7.5 Lymph # (Auto) (0.6 - 3.2 K/mm3) 0.8 [place] # (Auto) (0.3 - 1.1 K/mm3) 0.5 Eos # (Auto) (0.0 - 0.4 K/mm3) 0.0 Baso # (Auto) (0.0 - 0.1 K/mm3) 0.0 Abs Immat Gran (auto) (0.00 - 0.03 x10 3/uL) 0.38 H Add Manual Diff (CRITERIA DIFF/SCN) NO Immature Gran % (0.0 - 5.0 %) 4.2 Nucleated RBC % (0.0 - 1.0 /100WBC%) 0.3 Platelet Estimate (ADEQUATE THOUSAND) DECREASED Plt Morphology Comment AGGREGATES Diagnosis, Assessment PlanHospital course to date:1. Acute hypoxic respiratory failure2. Acute viral pneumonia due to COVID-19 infection3. Sleep apnea Plan Comfortable on 12L/min NC, NRB; titrate oxygen to maintan SpO2 > 92%Needs to wear her NIPPV QHS and for naps during the dayCTA without pulmonary embolism, does show bilateral patchy infiltrates consistent with COVID-19S/p convalescent plasma, remdesivirS/p diamox x2, follow up labs in AMContinue Dexamethasone BIDContinue ceftraixoneInfectious disease on boardEnhanced anticoagulationGI prophylaxis Daniel White 01/02/21 1831:Diagnosis, Assessment PlanHospital course to date: transaudative effusion Taper Oxygen to maintain sat 90-92%Positive pressure Vent QHS and PRN Patient is noncompliance to BIPAPOn Diamox at 1707 at 1832 RPT #: [id number] OF REPORT PRProgress [id number]:15:00L.[id number] able for patient ysfjGBRXVLOHKCMFLU0323-72-18N87:32:50 [facility] 2021-01-02 14:12:00 [id number] rl/AyFuSb6MTQgMz/bYYvsGtE2v0R +F/qL4fd6BJut6z8l33N8C3TRmuGkUjDLJ6353-57-18J84:1 2:00 [facility]Hospital[facility] Progress NoteREPORT#:[id number] REPORT STATUS: SignedDATE:01/02/21 TIME:1412 PATIENT: LORI DELUCA UNIT #: [id number]#: [id number] [address] [birth year] AGE: 55 SEX: F ATTEND: Alfred Escobedo [facility] AUTHOR: Yandy Johnson MD * ALL edits or amendments must be made on the electronic/computer document * SubjectiveChief Complaint:stable. On high flow oxygen currently 12 LDenies any complaints today Review of SystemsRespiratory:Denies: SOB. Cardiovascular:Denies: chest pain. GI:Denies: nausea, vomiting. Neuro:Denies: headache. Objective GeneralVS/I O:Vital Signs: Date Time Temp Pulse Resp B/P B/P Pulse O2 O2 Flow FiO2 Mean Ox Delivery Rate 01/02 1142 36.5 01/02 0830 High flow 12 90 nasal cannula 01/02 0734 37.1 01/02 0642 98 High flow 12 nasal cannula 01/02 0400 36.6 58 33 129/82 97 97 High flow 15 90 nasal cannula 01/02 0201 56 28 133/78 100 96 01/02 0130 68 31 154/92 115 86 01/02 0100 54 25 140/87 108 94 01/02 0030 61 23 139/81 104 94 01/02 0014 54 96 90 01/02 0012 36.4 06 0000 52 22 130/77 99 92 01/02 0000 36.4 54 31 139/81 100 94 BiPAP 15 90 01/01 2330 58 21 133/81 101 93 01/01 2300 54 21 127/72 94 94 01/01 2230 58 23 143/74 103 93 01/01 2215 68 97 90 01/01 2200 63 23 140/88 108 93 01/01 2130 55 24 150/73 105 92 01/01 2100 61 27 144/71 102 94 01/01 2044 36.4 01/01 2030 59 27 136/83 104 91 01/01 2017 91 High flow 15 nasal cannula 01/02 2000 15 90 01/02 2000 60 34 134/67 94 90 01/02 2000 36.6 58 31 136/83 100 94 High flow 15 90 nasal cannula 01/01 1930 62 37 130/74 94 91 01/01 1900 63 31 136/80 103 89 01/01 1830 71 36 132/76 97 85 01/01 1800 83 37 137/91 109 89 01/01 1748 73 34 123/85 98 91 01/01 1730 71 16 130/88 105 88 01/01 1715 68 26 133/79 101 98 01/01 1700 62 21 120/71 92 99 01/01 1645 59 21 118/62 85 97 01/01 1632 71 96 90 01/01 1630 76 154/82 109 84 01/01 1615 67 23 121/69 92 89 01/01 1545 74 32 146/87 112 86 01/01 1531 58 25 147/67 96 86 01/01 1515 61 23 136/86 104 89 01/01 1500 62 22 137/64 92 86 01/01 1446 63 23 128/67 91 86 01/01 1431 64 28 142/80 105 93 01/01 1416 66 24 142/75 100 90 24 hour I O ending at 0700: 01/02 0700 01/01 1900 Intake Total 240 400 Output Total 650 250 Balance -410 150 Intake, Oral 240 400 Number 1 Bowel Movements Number 2 Incontinent Voids Number Voids 2 Output, Urine 650 250 PATIENT WEIGHT: Weight (lb): 400Weight (oz): 2.22Weight (kg): 181.437 Physical ExamGeneral appearance: alert, awakeNeck: non-tender, no JVDCardiovascular: regular rate rhythm, no murmur, no rub, no thrillRespiratory: decreased breath sounds, hypoxiaAbdomen: non-tender, normal bowel sounds, soft, no distention, no guardingExtremities: moves all, no edemaNeuro/GREEN PRIZE PACKER: alert, oriented X 3, normal speech, no motor deficits, no sensory deficitsPsychiatry: normal affect Diagnosis, Assessment Plan Free Text DxA P NotesFree text DxA P notes: Acute hypoxic respiratory failure with COVID-19 pneumoniaWe will admit the patient Start the patient on steroidsWe will hold off on antibiotics as patient is afebrile white count is normal we will try to get CT scan of the chest to see if there are some infiltrates or not.We will get CT of the chest to assess the infiltrates As D-dimer is elevated and troponins are elevated will continue with therapeuticanticoagulationSymptomatic managementWe will ask infectious disease and pulmonary to evaluate Started the patient on remdesivirContinue supplemental oxygen to keep O2 sat above 90% and monitor respiratory status closelyProning NSTEMIPossibly type II in the setting of COVID-19 pneumonia with hypoxia. We will continue to trend troponins. Keep the patient on aspirin statin. We will get an echocardiogram. Monitor on telemetry. HypertensionResume lisinopril monitor blood pressure keep on as needed hydralazine PrediabetesNow that the patient will be on steroids we will keep on insulin sliding scale monitor blood sugars keep on diabetic diet COPDDoes not appear to be in COPD exacerbation will be on steroids supplemental oxygen. Monitor respiratory status closely. Pulmonary on board. DVT GI prophylaxisPatient is full codePatient was explained the plan in detail all medication effect side effects werediscussed all was well associated with the planNext of kin sister Madelyn ferguson [phone] 1Covid 19 PneumoniaCOPDHTNDMMorbid Obesity Plan------Continue on remdesevir-Continue COVID treatment protocol ( steroids, vit c/d/zinc)-Prone positioning as tolerated-Monitor inflammatory markers-Hiflow oxygen prn -Pulm and ID following-Accuchecks with ISS-Diabetic diet-Ensure tight glucose control-Resume home meds for BP ceuvmfe-Unapj-iuwijm completion of therapy and clinical improvement 12/30/2020- acute respiratory failure secondary to covid. 15 L high flow oxygen, wean as tolerated, cont steriod/remdesivir. PUl following- Covid 19 Pneumonia. ID following- COPD, neb tx- HTN; cont home med- DM; SSI- Morbid Obesity; lifestyle modification- Depression. zoloft- Debility. PT to mobilizeDVT/PPX- lovenoxplan. cont remdesivir/wean oxygenWas moved to ICU yesterday as was repeatedly taken off oxygen, currently more stable and on my evaluation is keeping on her oxygenIf stable can downgrade to IMCU 12/31/2020- acute respiratory failure secondary to covid. 15 L high flow oxygen, wean as tolerated, cont steriod/remdesivir. There is day 3 of remdesivir.- Covid 19 Pneumonia. ID following- COPD, neb tx- HTN; cont home med- DM; SSI- Morbid Obesity; lifestyle modification- Depression. zoloft- Debility. PT to mobilizeDVT/PPX- lovenox weight-basedplan. cont remdesivir/wean oxygenCurrently in IMCU, if can wean oxygen down to 10 L, will transfer to telemetry CODE STATUSFull code Noted patient has no official past medical power of patent prosecution attorney but and next of kinis her sister Madelyn Ferguson which she told me can make decisions for her if he everbecomes incapacitated. 01/01/2021- acute respiratory failure secondary to covid. 15 L high flow oxygen, wean as tolerated, cont steriod/remdesivir. - Covid 19 Pneumonia. ID following- COPD, neb tx- HTN; cont home med- DM; SSI- Morbid Obesity; lifestyle modification- Depression. zoloft- Debility. PT to mobilizeDVT/PPX- lovenox weight-basedplan. cont remdesivir/wean oxygenCurrently in IMCU, if can wean oxygen down to 10 L, will transfer to telemetryDC [place] CODE STATUSFull code 01/02/2021- acute respiratory failure secondary to covid. 12 L high flow oxygen, wean as tolerated, cont steriodS/p remdesivir- Covid 19 Pneumonia. ID following- COPD, neb tx- HTN; cont home med- DM; SSI- Morbid Obesity; lifestyle modification- Depression. zoloft- Debility. PT to mobilizeDVT/PPX- lovenox weight-basedContinue to wean oxygenCurrently in IMCU, can transfer to telemetry today CODE STATUSFull code Noted patient has no official past medical power of patent prosecution attorney but and next of kinis her sister Madelyn Ferguson which she told me can make decisions for her if he everbecomes incapacitated. at 1414 RPT #: [id number] OF REPORT PRProgress Fysi5363-61-55W54:12:00L.[id number] able for patient xmqqEFJYRRQUBRYOGK7014-44-66Z70:15:00 [facility] 2021-01-02 11:28:00 [id number] GM3Z/7FuFF+QEG6E+DlU4/YcMokqa iRvbhvq1CJEUJ1y7RFbX9W6OGnv1C4B3ND8733-59-33A40:2 8:00 [facility] ([facility])Infectious Dis. Progress NoteREPORT#:[id number] REPORT STATUS: SignedDATE:01/02/21 TIME:1128 PATIENT: LORI DELUCA UNIT #: [id number]#: [id number] [address] [birth year] AGE: 55 SEX: F ATTEND: Alfred Escobedo [facility] AUTHOR: Andrew Aguilar MD * ALL edits or amendments must be made on the electronic/computer document * SubjectiveChief Complaint:PneumoniaHPI:WBC remains normal. Pt has been on 12L O2. Review of SystemsConstitutional:Denies: fever. Objective Physical ExamHead/Eyes: atraumatic, EOMI, normocephalicCardiovascular: regular rate rhythmRespiratory: on oxygenAbdomen: non-tender, softMusculoskeletal: no joint swellingSkin: normal color, normal turgor, no rashPsychiatry: normal affect, normal judgment/insight, normal mood Diagnosis, Assessment PlanFree Text A P:Laboratory Tests 01/02/21 0520:[Embedded Image Not Available] Assessment:1. Pneumonia with covid-19 s/p CV plasma and remdesivir.2. Acute respiratory failure with hypoxia.3. Morbid obesity. Plan:1. Steroids.2. Monitor inflammatory markers. CRP has decreased.3. Continue ceftriaxone (day 4) empirically for possible superimposed bacterial PNA.4. Wean O2 as tolerated. at 1255 RPT #: [id number] OF REPORT PRProgress Cmnc1870-21-66N31:28:00L.[id number] able for patient tcxuKWZPIEOEAGCAZQ9053-60-62H21:55:27 [facility] 2021-01-01 12:15:00 [id number] g2xA/VyFzPSAkRenfthSVKFU3D5r3 CdNJb/Zh4yyqyAbhPJeTsMUdKr3K2dUrS51228-71-44I90:1 5:00 [facility] ([facility])Pulmonology Progress NoteREPORT#:[id number] REPORT STATUS: SignedDATE:01/01/21 TIME:1215 PATIENT: LORI DELUCA UNIT #: [id number]#: [id number] [address] [birth year] AGE: 55 SEX: F ATTEND: Alfred Escobedo [facility] AUTHOR: Sergio Love * ALL edits or amendments must be made on the electronic/computer document * SubjectiveChief Complaint:On 15L/min NC, NRBSpO2 94%Reports no dyspnea Review of Systems ROSConstitutional:generalized weakness. Respiratory:Denies: pleuritic pain. Cardiovascular:Denies: chest pain. GI:Denies: abdominal pain. Objective GeneralVS/I O:Last Documented: Result Date Time Temp 36.6 01/01 1128 Pulse Ox 93 01/01 1016 B/P 124/75 01/01 1016 B/P Mean 93 01/01 1016 Pulse 80 01/01 1016 Resp 28 01/01 1016 FiO2 100 01/01 0903 O2 Delivery Non rebreather mask 01/01 0903 O2 Flow Rate 15 01/01 0903 24 hour I O ending at 0700: 01/01 0700 12/31 1900 Intake Total 370.00 2400.00 Output Total 700 Balance 370.00 1700.00 Intake, IV 250.00 100.00 Intake, Oral 120 2300 Output, Urine 700 PATIENT WEIGHT: Weight (lb): 400Weight (oz): 2.22Weight (kg): 181.437 Medications:Active Meds + DC'd Last 24 HrsBenzonatate 100 MG TID PO Dexamethasone 6 MG BID PO Famotidine 20 MG BID PO Ceftriaxone Sodium 1,000 MG Q24H IV Sterile Water 10 MLLisinopril 20 MG DAILY PO Sertraline HCl 50 MG DAILY PO Remdesivir 100 MG Q24H IV (DC) Sodium Chloride 250 MLDextrose/Water 50 ML ONCE PRN IV (CKD) Insulin Human Lispro S/SCALE AC HS SUBQ Enoxaparin Sodium 180 MG Q12HR SUBQ Guaifenesin/Dextromethorphan 10 ML Q4H PRN PRN PO (DC) Physical ExamHead/eyes: atraumatic, normocephalicENT: ENT: normal nose, normal sinusCardiovascular: normal heart sounds, normal S1/S2, regular rate rhythm, no rub, no gallopAbdomen: soft, normal bowel soundsExtremities: edema, no cyanosis, no edemaNeuro/GREEN PRIZE PACKER: alert, oriented X 3, CNII-XII intact ResultsFindings/Data:Laboratory Tests 01/01/21 0930:[Embedded Image Not Available] 01/01/21 0530:[Embedded Image Not Available]Laboratory Tests 01/01 01/01 01/01 1126 0811 0530 Chemistry POC Glucose (70 - 110 mg/dL) 171 H 143 H C-Reactive Protein (0.000 - 0.3 MG/DL) 7.530 H 01/01 12/31 12/31 0530 2045 1639 Chemistry Sodium (134 - 147 mmol/L) 141 Potassium (3.4 - 5.0 mmol/L) 4.9 Chloride (100 - 108 mmol/L) 102 Carbon Dioxide (21 - 32 mmol/L) 37 H Anion Gap (4.0 - 15.0 GAP calc) 2.0 L BUN (7 - 18 MG/DL) 19 H Creatinine (0.6 - 1.0 MG/DL) 0.5 L Glomerular Filtr Rate (>60 estGFR) >=60 max estimate Glucose (70 - 110 MG/DL) 154 H POC Glucose (70 - 110 mg/dL) 175 H 126 H Calcium (8.5 - 10.1 MG/DL) 8.7 Ferritin (3.0 - 105.0 NG/ML) 133.9 H Lactate Dehydrogenase (84 - 246 Unit/L) 281 H Laboratory Tests 01/01 0530 Coagulation D-Dimer (215 - 500 ng/mLFEU) 430 Laboratory Tests 01/01 0930 Hematology WBC (3.5 - 11.0 K/mm3) 9.0 RBC (4.70 - 6.10 M/mm3) 5.22 Hgb (10.4 - 14.9 G/DL) 14.0 Hct (31.5 - 44.1 %) 47.4 H MCV (84.5 - 98.6 Fl) 90.8 MCH (27.0 - 34.2 pg) 26.8 L MCHC (31.5 - 34.0 G/DL) 29.5 L RDW (11.5 - 14.5 SD) 14.6 H Plt Count (150 - 450 K/mm3) 74 L MPV (7.0 - 10.5 fL) 11.40 H Neut % (Auto) (40 - 76 %) 84.0 H Lymph % (Auto) (20.5 - 51.1 %) 8.0 L [place] % (Auto) (1.7 - 9.3 %) 5.6 Eos % (Auto) (0.0 - 6.0 %) 0.1 Baso % (Auto) (0.0 - 2.0 %) 0.2 Neut # (Auto) (1.8 - 7.6 K/mm3) 7.5 Lymph # (Auto) (0.6 - 3.2 K/mm3) 0.7 [place] # (Auto) (0.3 - 1.1 K/mm3) 0.5 Eos # (Auto) (0.0 - 0.4 K/mm3) 0.0 Baso # (Auto) (0.0 - 0.1 K/mm3) 0.0 Abs Immat Gran (auto) (0.00 - 0.03 x10 3/uL) 0.19 H Add Manual Diff (CRITERIA DIFF/SCN) NO Immature Gran % (0.0 - 5.0 %) 2.1 Nucleated RBC % (0.0 - 1.0 /100WBC%) 0.4 Platelet Estimate (ADEQUATE THOUSAND) DECREASED Plt Morphology Comment CLUMPS Radiology data:Recent Impressions:RADIOLOGY - XR CHEST 1 V 01/01 0600 Report Impression - Status: SIGNED Entered: 01/01/2021 0935 IMPRESSION: Essentially unchanged bilateral scattered interstitial and groundglassairspace opacities.Impression By: DakotahANSMarley Pimentel M.D. Diagnosis, Assessment PlanHospital course to date:Assessment1. Acute hypoxic respiratory failure2. Acute viral pneumonia due to COVID-19 infection3. Sleep apnea Plan Comfortable on 15L/min NC, NRB; titrate oxygen to maintan SpO2 > 92%Needs to wear her NIPPV QHS and for naps during the dayCTA without pulmonary embolism, does show bilateral patchy infiltrates consistent with COVID-19CXR reviewed with slightly improved right lung airspace opacitiesS/p convalescent plasma, remdesivirContinue Dexamethasone BID, increase doseContinue ceftraixoneInfectious disease on boardEnhanced anticoagulationGI prophylaxis IMCU at 1541 RPT #: [id number] OF REPORT PRProgress Rkez7505-59-66F96:15:00L.UDXC89355006-9278TQYlaip able for patient unegPGCQYZPQDEENJK6422-55-04L54:42:03 [facility] 2021-01-01 12:15:00 [id number] PSdZL9iJK7EuvXtNGVPnlAn36zyWs GjWI/5CWEkQIZ5YGI1Jdks8RQO8PRu6dXf0480-28-31Q54:1 5:00 [facility] ([facility])Pulmonology Progress NoteREPORT#:[id number] REPORT STATUS: SignedDATE:01/01/21 TIME:1215 PATIENT: LORI DELUCA UNIT #: [id number]#: [id number] [facility]DOB: [birth year] AGE: 55 SEX: F ATTEND: Alfred Escobedo MDAD[facility] AUTHOR: Sergio Love * ALL edits or amendments must be made on the electronic/computer document * Sergio Love 01/01/21 1215:SubjectiveChief Complaint:On 15L/min NC, NRBSpO2 94%Reports no dyspnea Review of Systems ROSConstitutional:generalized weakness. Respiratory:Denies: pleuritic pain. Cardiovascular:Denies: chest pain. GI:Denies: abdominal pain. Objective GeneralVS/I O:Last Documented: Result Date Time Temp 36.6 01/01 1128 Pulse Ox 93 01/01 1016 B/P 124/75 01/01 1016 B/P Mean 93 01/01 1016 Pulse 80 01/01 1016 Resp 28 01/01 1016 FiO2 100 01/01 0903 O2 Delivery Non rebreather mask 01/01 0903 O2 Flow Rate 15 01/01 0903 24 hour I O ending at 0700: 01/01 0700 12/31 1900 Intake Total 370.00 2400.00 Output Total 700 Balance 370.00 1700.00 Intake, IV 250.00 100.00 Intake, Oral 120 2300 Output, Urine 700 PATIENT WEIGHT: Weight (lb): 400Weight (oz): 2.22Weight (kg): 181.437 Medications:Active Meds + DC'd Last 24 HrsBenzonatate 100 MG TID PO Dexamethasone 6 MG BID PO Famotidine 20 MG BID PO Ceftriaxone Sodium 1,000 MG Q24H IV Sterile Water 10 MLLisinopril 20 MG DAILY PO Sertraline HCl 50 MG DAILY PO Remdesivir 100 MG Q24H IV (DC) Sodium Chloride 250 MLDextrose/Water 50 ML ONCE PRN IV (CKD) Insulin Human Lispro S/SCALE AC HS SUBQ Enoxaparin Sodium 180 MG Q12HR SUBQ Guaifenesin/Dextromethorphan 10 ML Q4H PRN PRN PO (DC) Physical ExamHead/eyes: atraumatic, normocephalicENT: ENT: normal nose, normal sinusCardiovascular: normal heart sounds, normal S1/S2, regular rate rhythm, no rub, no gallopAbdomen: soft, normal bowel soundsExtremities: edema, no cyanosis, no edemaNeuro/GREEN PRIZE PACKER: alert, oriented X 3, CNII-XII intact ResultsFindings/Data:Laboratory Tests 01/01/21 0930:[Embedded Image Not Available] 01/01/21 0530:[Embedded Image Not Available]Laboratory Tests 01/01 01/01 01/01 1126 0811 0530 Chemistry POC Glucose (70 - 110 mg/dL) 171 H 143 H C-Reactive Protein (0.000 - 0.3 MG/DL) 7.530 H 01/01 12/31 12/31 0530 2045 1639 Chemistry Sodium (134 - 147 mmol/L) 141 Potassium (3.4 - 5.0 mmol/L) 4.9 Chloride (100 - 108 mmol/L) 102 Carbon Dioxide (21 - 32 mmol/L) 37 H Anion Gap (4.0 - 15.0 GAP calc) 2.0 L BUN (7 - 18 MG/DL) 19 H Creatinine (0.6 - 1.0 MG/DL) 0.5 L Glomerular Filtr Rate (>60 estGFR) >=60 max estimate Glucose (70 - 110 MG/DL) 154 H POC Glucose (70 - 110 mg/dL) 175 H 126 H Calcium (8.5 - 10.1 MG/DL) 8.7 Ferritin (3.0 - 105.0 NG/ML) 133.9 H Lactate Dehydrogenase (84 - 246 Unit/L) 281 H Laboratory Tests 01/01 0530 Coagulation D-Dimer (215 - 500 ng/mLFEU) 430 Laboratory Tests 01/01 0930 Hematology WBC (3.5 - 11.0 K/mm3) 9.0 RBC (4.70 - 6.10 M/mm3) 5.22 Hgb (10.4 - 14.9 G/DL) 14.0 Hct (31.5 - 44.1 %) 47.4 H MCV (84.5 - 98.6 Fl) 90.8 MCH (27.0 - 34.2 pg) 26.8 L MCHC (31.5 - 34.0 G/DL) 29.5 L RDW (11.5 - 14.5 SD) 14.6 H Plt Count (150 - 450 K/mm3) 74 L MPV (7.0 - 10.5 fL) 11.40 H Neut % (Auto) (40 - 76 %) 84.0 H Lymph % (Auto) (20.5 - 51.1 %) 8.0 L [place] % (Auto) (1.7 - 9.3 %) 5.6 Eos % (Auto) (0.0 - 6.0 %) 0.1 Baso % (Auto) (0.0 - 2.0 %) 0.2 Neut # (Auto) (1.8 - 7.6 K/mm3) 7.5 Lymph # (Auto) (0.6 - 3.2 K/mm3) 0.7 [place] # (Auto) (0.3 - 1.1 K/mm3) 0.5 Eos # (Auto) (0.0 - 0.4 K/mm3) 0.0 Baso # (Auto) (0.0 - 0.1 K/mm3) 0.0 Abs Immat Gran (auto) (0.00 - 0.03 x10 3/uL) 0.19 H Add Manual Diff (CRITERIA DIFF/SCN) NO Immature Gran % (0.0 - 5.0 %) 2.1 Nucleated RBC % (0.0 - 1.0 /100WBC%) 0.4 Platelet Estimate (ADEQUATE THOUSAND) DECREASED Plt Morphology Comment CLUMPS Radiology data:Recent Impressions:RADIOLOGY - XR CHEST 1 V 01/01 0600 Report Impression - Status: SIGNED Entered: 01/01/2021 7082 IMPRESSION: Essentially unchanged bilateral scattered interstitial and groundglassairspace opacities.Impression By: DakotahANS4 - Adam Pimentel M.D. Diagnosis, Assessment PlanHospital course to date:Assessment1. Acute hypoxic respiratory failure2. Acute viral pneumonia due to COVID-19 infection3. Sleep apnea Plan Comfortable on 15L/min NC, NRB; titrate oxygen to maintan SpO2 > 92%Needs to wear her NIPPV QHS and for naps during the dayCTA without pulmonary embolism, does show bilateral patchy infiltrates consistent with COVID-19CXR reviewed with slightly improved right lung airspace opacitiesS/p convalescent plasma, remdesivirContinue Dexamethasone BID, increase doseContinue ceftraixoneInfectious disease on boardEnhanced anticoagulationGI prophylaxis Daniel White 01/01/21 2207:Diagnosis, Assessment PlanHospital course to date:evaluated, discussed with RENTAL SALESPERSON . discussed planAgree with above at 1541 at 2207 RPT #: [id number] OF REPORT PRProgress Qnlc3835-80-39I25:15:00L.[id number] able for patient gvqxOTSAQOSNPJTXVB7752-79-37P21:07:36 [facility] 2021-01-01 11:58:00 [id number] mN19amZw6BVaehxeQbZo3u1WT3z1D QwZvQsAjyOkhOJJAyT8/7d5hrOrA4K0oie8749-25-31S05:5 8:00 [facility] Progress NoteREPORT#:[id number] REPORT STATUS: SignedDATE:01/01/21 TIME:1158 PATIENT: LORI DELUCA UNIT #: [id number]#: [id number] [address] [birth year] AGE: 55 SEX: F ATTEND: Alfred Escobedo [facility] AUTHOR: Yandy Johnson MD * ALL edits or amendments must be made on the electronic/computer document * SubjectiveChief Complaint:stable. On high flow oxygen currently 15 L- some dry cough Review of SystemsRespiratory:Denies: SOB. Cardiovascular:Denies: chest pain. GI:Denies: nausea, vomiting. Neuro:Denies: headache. Objective GeneralVS/I O:Vital Signs: Date Time Temp Pulse Resp B/P B/P Pulse O2 O2 Flow FiO2 Mean Ox Delivery Rate 01/01 1128 36.6 01/01 1016 80 28 124/75 93 93 01/01 0930 71 24 109/77 88 94 01/01 0915 62 23 123/75 95 96 01/01 0903 95 Non 15 100 rebreather mask 01/01 0900 81 25 123/75 95 94 01/01 0845 81 29 126/78 97 84 01/01 0816 84 27 117/68 87 85 01/01 0804 High flow 15 100 nasal cannula 01/01 0800 89 25 128/82 100 93 / 0745 69 23 132/78 96 92 01/01 0731 92 High flow 15 100 nasal cannula 01/01 0730 62 23 141/78 100 92 01/01 0715 57 23 128/76 97 93 01/01 0700 71 24 156/83 112 78 01/01 0638 36.2 01/01 0401 65 29 135/87 107 91 01/01 0021 36.2 01/01 0006 72 26 91 01/01 0000 58 12/31 2047 36.3 12/31 2000 67 20 139/79 99 93 High flow 15 nasal cannula 12/31 1924 91 High flow 15 nasal cannula 12/31 1830 80 28 126/78 98 89 12/31 1800 136/76 99 90 12/31 1715 126/72 95 92 12/31 1643 36.6 12/31 1615 131/74 97 89 12/31 1600 High flow 15 nasal cannula 12/31 1545 134/75 98 91 12/31 1445 74 30 124/63 87 89 12/31 1430 73 25 132/68 92 93 16 1415 77 25 125/63 86 91 12/31 1400 76 28 130/71 95 92 12/31 1345 75 27 121/69 90 93 12/31 1330 76 22 118/59 82 89 12/31 1230 83 14 129/69 94 92 12/31 1201 36.5 12/31 1201 92 39 136/75 94 79 12/31 1200 High flow 15 nasal cannula 24 hour I O ending at 0700: 01/01 0700 12/31 1900 Intake Total 370.00 2400.00 Output Total 700 Balance 370.00 1700.00 Intake, IV 250.00 100.00 Intake, Oral 120 2300 Output, Urine 700 PATIENT WEIGHT: Weight (lb): 400Weight (oz): 2.22Weight (kg): 181.437 Physical ExamGeneral appearance: alert, awakeNeck: non-tender, no JVDCardiovascular: regular rate rhythm, no murmur, no rub, no thrillRespiratory: decreased breath sounds, hypoxiaAbdomen: non-tender, normal bowel sounds, soft, no distention, no guardingExtremities: moves all, no edemaNeuro/GREEN PRIZE PACKER: alert, oriented X 3, normal speech, no motor deficits, no sensory deficitsPsychiatry: normal affect Diagnosis, Assessment Plan Free Text DxA P NotesFree text DxA P notes: Acute hypoxic respiratory failure with COVID-19 pneumoniaWe will admit the patient Start the patient on steroidsWe will hold off on antibiotics as patient is afebrile white count is normal we will try to get CT scan of the chest to see if there are some infiltrates or not.We will get CT of the chest to assess the infiltrates As D-dimer is elevated and troponins are elevated will continue with therapeuticanticoagulationSymptomatic managementWe will ask infectious disease and pulmonary to evaluate Started the patient on remdesivirContinue supplemental oxygen to keep O2 sat above 90% and monitor respiratory status closelyProning NSTEMIPossibly type II in the setting of COVID-19 pneumonia with hypoxia. We will continue to trend troponins. Keep the patient on aspirin statin. We will get an echocardiogram. Monitor on telemetry. HypertensionResume lisinopril monitor blood pressure keep on as needed hydralazine PrediabetesNow that the patient will be on steroids we will keep on insulin sliding scale monitor blood sugars keep on diabetic diet COPDDoes not appear to be in COPD exacerbation will be on steroids supplemental oxygen. Monitor respiratory status closely. Pulmonary on board. DVT GI prophylaxisPatient is full codePatient was explained the plan in detail all medication effect side effects werediscussed all was well associated with the planNext of kin sister Madelyn ferguson [phone] 1Covid 19 PneumoniaCOPDHTNDMMorbid Obesity Plan------Continue on remdesevir-Continue COVID treatment protocol ( steroids, vit c/d/zinc)-Prone positioning as tolerated-Monitor inflammatory markers-Hiflow oxygen prn -Pulm and ID following-Accuchecks with ISS-Diabetic diet-Ensure tight glucose control-Resume home meds for BP biupciy-Qeiar-ktbkil completion of therapy and clinical improvement 12/30/2020- acute respiratory failure secondary to covid. 15 L high flow oxygen, wean as tolerated, cont steriod/remdesivir. PUl following- Covid 19 Pneumonia. ID following- COPD, neb tx- HTN; cont home med- DM; SSI- Morbid Obesity; lifestyle modification- Depression. zoloft- Debility. PT to mobilizeDVT/PPX- lovenoxplan. cont remdesivir/wean oxygenWas moved to ICU yesterday as was repeatedly taken off oxygen, currently more stable and on my evaluation is keeping on her oxygenIf stable can downgrade to IMCU 12/31/2020- acute respiratory failure secondary to covid. 15 L high flow oxygen, wean as tolerated, cont steriod/remdesivir. There is day 3 of remdesivir.- Covid 19 Pneumonia. ID following- COPD, neb tx- HTN; cont home med- DM; SSI- Morbid Obesity; lifestyle modification- Depression. zoloft- Debility. PT to mobilizeDVT/PPX- lovenox weight-basedplan. cont remdesivir/wean oxygenCurrently in IMCU, if can wean oxygen down to 10 L, will transfer to telemetry CODE STATUSFull code Noted patient has no official past medical power of patent prosecution attorney but and next of kinis her sister Madelyn Ferguson which she told me can make decisions for her if he everbecomes incapacitated. 01/01/2021- acute respiratory failure secondary to covid. 15 L high flow oxygen, wean as tolerated, cont steriod/remdesivir. - Covid 19 Pneumonia. ID following- COPD, neb tx- HTN; cont home med- DM; SSI- Morbid Obesity; lifestyle modification- Depression. zoloft- Debility. PT to mobilizeDVT/PPX- lovenox weight-basedplan. cont remdesivir/wean oxygenCurrently in IMCU, if can wean oxygen down to 10 L, [facility] CODE STATUSFull code Noted patient has no official past medical power of patent prosecution attorney but and next of kinis her sister Madelyn Ferguson which she told me can make decisions for her if he everbecomes incapacitated. at 1201 RPT #: [id number] OF REPORT PRProgress Zmkc0030-47-48V06:58:00L.[id number] able for patient xntjJVGKQNYPIVWYBF7598-34-66M93:01:45 [facility] 2021-01-01 11:58:00 [id number] 0pY1IDZyRbFV2ydb4MG1wMNcwyyar WOEuz+MRG6ITpF5X76phBZJSCKuCdymWL68559-97-58Y13:5 8:00 [facility])Hospitalist Progress NoteREPORT#:[id number] REPORT STATUS: SignedDATE:01/01/21 TIME:1158 PATIENT: LORI DELUCA UNIT #: [id number]#: [id number] [address] [birth year] AGE: 55 SEX: F ATTEND: Alfred Escobedo [facility] AUTHOR: Yandy Johnson MD * ALL edits or amendments must be made on the electronic/computer document * See AddendumSubjectiveChief Complaint:stable. On high flow oxygen currently 15 L- some dry cough Review of SystemsRespiratory:Denies: SOB. Cardiovascular:Denies: chest pain. GI:Denies: nausea, vomiting. Neuro:Denies: headache. Objective GeneralVS/I O:Vital Signs: Date Time Temp Pulse Resp B/P B/P Pulse O2 O2 Flow FiO2 Mean Ox Delivery Rate 01/01 1128 36.6 01/01 1016 80 28 124/75 93 93 01/01 0930 71 24 109/77 88 94 01/01 0915 62 23 123/75 95 96 01/01 0903 95 Non 15 100 rebreather mask 01/01 0900 81 25 123/75 95 94 01/01 0845 81 29 126/78 97 84 01/01 0816 84 27 117/68 87 85 01/01 0804 High flow 15 100 nasal cannula 01/01 0800 89 25 128/82 100 93 01/01 0745 69 23 132/78 96 92 01/01 0731 92 High flow 15 100 nasal cannula 01/01 0730 62 23 141/78 100 92 01/01 0715 57 23 128/76 97 93 01/01 0700 71 24 156/83 112 78 01/01 0638 36.2 01/01 0401 65 29 135/87 107 91 01/01 0021 36.2 01/01 0006 72 26 91 01/01 0000 58 12/31 2047 36.3 12/31 2000 67 20 139/79 99 93 High flow 15 nasal cannula 12/31 1924 91 High flow 15 nasal cannula 12/31 1830 80 28 126/78 98 89 12/31 1800 136/76 99 90 12/31 1715 126/72 95 92 12/31 1643 36.6 12/31 1615 131/74 97 89 12/31 1600 High flow 15 nasal cannula 12/31 1545 134/75 98 91 12/31 1445 74 30 124/63 87 89 12/31 1430 73 25 132/68 92 93 12/31 1415 77 25 125/63 86 91 12/31 1400 76 28 130/71 95 92 12/31 1345 75 27 121/69 90 93 12/31 1330 76 22 118/59 82 89 12/31 1230 83 14 129/69 94 92 12/31 1201 36.5 12/31 1201 92 39 136/75 94 79 12/31 1200 High flow 15 nasal cannula 24 hour I O ending at 0700: 01/01 0700 12/31 1900 Intake Total 370.00 2400.00 Output Total 700 Balance 370.00 1700.00 Intake, IV 250.00 100.00 Intake, Oral 120 2300 Output, Urine 700 PATIENT WEIGHT: Weight (lb): 400Weight (oz): 2.22Weight (kg): 181.437 Physical ExamGeneral appearance: alert, awakeNeck: non-tender, no JVDCardiovascular: regular rate rhythm, no murmur, no rub, no thrillRespiratory: decreased breath sounds, hypoxiaAbdomen: non-tender, normal bowel sounds, soft, no distention, no guardingExtremities: moves all, no edemaNeuro/GREEN PRIZE PACKER: alert, oriented X 3, normal speech, no motor deficits, no sensory deficitsPsychiatry: normal affect Diagnosis, Assessment Plan Free Text DxA P NotesFree text DxA P notes: Acute hypoxic respiratory failure with COVID-19 pneumoniaWe will admit the patient Start the patient on steroidsWe will hold off on antibiotics as patient is afebrile white count is normal we will try to get CT scan of the chest to see if there are some infiltrates or not.We will get CT of the chest to assess the infiltrates As D-dimer is elevated and troponins are elevated will continue with therapeuticanticoagulationSymptomatic managementWe will ask infectious disease and pulmonary to evaluate Started the patient on remdesivirContinue supplemental oxygen to keep O2 sat above 90% and monitor respiratory status closelyProning NSTEMIPossibly type II in the setting of COVID-19 pneumonia with hypoxia. We will continue to trend troponins. Keep the patient on aspirin statin. We will get an echocardiogram. Monitor on telemetry. HypertensionResume lisinopril monitor blood pressure keep on as needed hydralazine PrediabetesNow that the patient will be on steroids we will keep on insulin sliding scale monitor blood sugars keep on diabetic diet COPDDoes not appear to be in COPD exacerbation will be on steroids supplemental oxygen. Monitor respiratory status closely. Pulmonary on board. DVT GI prophylaxisPatient is full codePatient was explained the plan in detail all medication effect side effects werediscussed all was well associated with the planNext of kin sister Madelyn ferguson [phone] 1Covid 19 PneumoniaCOPDHTNDMMorbid Obesity Plan------Continue on remdesevir-Continue COVID treatment protocol ( steroids, vit c/d/zinc)-Prone positioning as tolerated-Monitor inflammatory markers-Hiflow oxygen prn -Pulm and ID following-Accuchecks with ISS-Diabetic diet-Ensure tight glucose control-Resume home meds for BP zsauvsb-Yfjgu-adndqt completion of therapy and clinical improvement 12/30/2020- acute respiratory failure secondary to covid. 15 L high flow oxygen, wean as tolerated, cont steriod/remdesivir. PUl following- Covid 19 Pneumonia. ID following- COPD, neb tx- HTN; cont home med- DM; SSI- Morbid Obesity; lifestyle modification- Depression. zoloft- Debility. PT to mobilizeDVT/PPX- lovenoxplan. cont remdesivir/wean oxygenWas moved to ICU yesterday as was repeatedly taken off oxygen, currently more stable and on my evaluation is keeping on her oxygenIf stable can downgrade to IMCU 12/31/2020- acute respiratory failure secondary to covid. 15 L high flow oxygen, wean as tolerated, cont steriod/remdesivir. There is day 3 of remdesivir.- Covid 19 Pneumonia. ID following- COPD, neb tx- HTN; cont home med- DM; SSI- Morbid Obesity; lifestyle modification- Depression. zoloft- Debility. PT to mobilizeDVT/PPX- lovenox weight-basedplan. cont remdesivir/wean oxygenCurrently in IMCU, if can wean oxygen down to 10 L, will transfer to telemetry CODE STATUSFull code Noted patient has no official past medical power of patent prosecution attorney but and next of kinis her sister Madelyn Ferguson which she told me can make decisions for her if he everbecomes incapacitated. 01/01/2021- acute respiratory failure secondary to covid. 15 L high flow oxygen, wean as tolerated, cont steriod/remdesivir. - Covid 19 Pneumonia. ID following- COPD, neb tx- HTN; cont home med- DM; SSI- Morbid Obesity; lifestyle modification- Depression. zoloft- Debility. PT to mobilizeDVT/PPX- lovenox weight-basedplan. cont remdesivir/wean oxygenCurrently in IMCU, if can wean oxygen down to 10 L, [facility] CODE STATUSFull code Noted patient has no official past medical power of patent prosecution attorney but and next of kinis her sister Madelyn Ferguson which she told me can make decisions for her if he everbecomes incapacitated. at 1201 Addendum 1: 01/01/21 175 by Yandy Johnson MD critical care time 35 mins at 1758 RPT #: [id number] OF REPORT PRProgress Zwnj5325-21-26P58:58:00L.EUGP08480865-7864RCSygav able for patient nydnRWNXVPDRYQMNYM8216-68-16J19:58:26 [facility] 2021-01-01 10:13:00 [id number] Paola/hNJGLhB9JHxeiRvdOV9ziEHq aGEhIxQiXyXlip9nEt1qzRgXcXAlDKu+w39058-10-09K60:1 3:00 [facility] ([facility])Infectious Dis. Progress NoteREPORT#:[id number] REPORT STATUS: SignedDATE:01/01/21 TIME:1013 PATIENT: LORI DELUCA UNIT #: [id number]#: [id number] [address] [birth year] AGE: 55 SEX: F ATTEND: Alfred Escobedo [facility] AUTHOR: Andrew Aguilar MD * ALL edits or amendments must be made on the electronic/computer document * SubjectiveChief Complaint:PneumoniaHPI:Pt is on 15L O2. CRP decreasing. Review of SystemsConstitutional:Denies: fever. Objective Physical ExamHead/Eyes: atraumatic, EOMI, normocephalicCardiovascular: regular rate rhythmRespiratory: on oxygenAbdomen: non-tender, softMusculoskeletal: no joint swellingNeuro/GREEN PRIZE PACKER: alert, oriented X 3Skin: normal color, normal turgor, no rash Diagnosis, Assessment PlanFree Text A P:Laboratory Tests 01/01/21 0930:[Embedded Image Not Available] 01/01/21 0530:[Embedded Image Not Available] Assessment:1. Pneumonia with covid-19 s/p CV plasma and remdesivir.2. Acute respiratory failure with hypoxia.3. Morbid obesity. Plan:1. Steroids.2. Monitor inflammatory markers. CRP has decreased.3. Continue ceftriaxone (day 3) empirically due to increasing CRP and WBC.4. Wean O2 as tolerated. at 1158 RPT #: [id number] OF REPORT PRProgress Zhse7356-80-59K79:13:00L.GAMU18185374-5485QBSpxhe able for patient ekewRRRRRZXZNOCSJU4028-45-67T87:58:44 [facility] 2020-12-31 15:16:00 [id number] b1NCUHxOQni4lNIUjVv+TOqwdNl5k qc4CGVpQ9tb9wVrQcXh+H3mPA2mTAUMlfz2202-11-19J08:1 6:00 [facility] ([facility])Infectious Dis. Progress NoteREPORT#:[id number] REPORT STATUS: SignedDATE:12/31/20 TIME:1515 PATIENT: LORI DELUCA UNIT #: [id number]#: [id number] [address] [birth year] AGE: 55 SEX: F ATTEND: Alfred Escobedo [facility] AUTHOR: Annalisa Hernandez * ALL edits or amendments must be made on the electronic/computer document * Annalisa Hernandez 12/31/20 1516:SubjectiveChief Complaint:PneumoniaHPI:Patient moved to IMCU, step down from ICU; WBC trending upwards @ 10.8 and CRP trending upwards @ 18.8 today. Patient states she feels better than previous dayand afebrile today. Review of SystemsConstitutional:Denies: chills, fatigue, fever. Neuro:Denies: confusion, dizziness. Objective Physical ExamGeneral appearance: alert, awake, orientedHead/Eyes: atraumatic, EOMI, normocephalicNeck: full range of motion, non-tenderCardiovascular: regular rate rhythmRespiratory: on oxygenAbdomen: non-tender, softExtremities: moves all, normal capillary refill, no clubbing, no cyanosisNeuro/GREEN PRIZE PACKER: alert, oriented X 3 ResultsFindings/Data:Laboratory Tests 12/31 12/31 12/31 12/30 12/30 1156 0754 0435 1943 1718Chemistry Sodium (134 - 147 mmol/L) 138 Potassium (3.4 - 5.0 mmol/L) 4.7 Chloride (100 - 108 mmol/L) 103 Carbon Dioxide (21 - 32 mmol/L) 34 H Anion Gap (4.0 - 15.0 GAP calc) 1.0 L BUN (7 - 18 MG/DL) 20 H Creatinine (0.6 - 1.0 MG/DL) 0.5 L Glomerular Filtr Rate (>60 >=60 max estimateestGFR) Glucose (70 - 110 MG/DL) 156 H POC Glucose (70 - 110 mg/dL) 122 H 119 H 153 H 185 H Calcium (8.5 - 10.1 MG/DL) 8.5 Laboratory Tests 12/31 0435 Hematology WBC (3.5 - 11.0 K/mm3) 10.8 RBC (4.70 - 6.10 M/mm3) 5.05 Hgb (10.4 - 14.9 G/DL) 13.3 Hct (31.5 - 44.1 %) 45.9 H MCV (84.5 - 98.6 Fl) 90.9 MCH (27.0 - 34.2 pg) 26.3 L MCHC (31.5 - 34.0 G/DL) 29.0 L RDW (11.5 - 14.5 SD) 14.6 H Plt Count (150 - 450 K/mm3) 151 MPV (7.0 - 10.5 fL) 11.70 H Neut % (Auto) (40 - 76 %) 88.4 H Lymph % (Auto) (20.5 - 51.1 %) 5.8 L [place] % (Auto) (1.7 - 9.3 %) 4.1 Eos % (Auto) (0.0 - 6.0 %) 0.0 Baso % (Auto) (0.0 - 2.0 %) 0.2 Neut # (Auto) (1.8 - 7.6 K/mm3) 9.5 H Lymph # (Auto) (0.6 - 3.2 K/mm3) 0.6 [place] # (Auto) (0.3 - 1.1 K/mm3) 0.4 Eos # (Auto) (0.0 - 0.4 K/mm3) 0.0 Baso # (Auto) (0.0 - 0.1 K/mm3) 0.0 Abs Immat Gran (auto) (0.00 - 0.03 x10 3/uL) 0.16 H Add Manual Diff (CRITERIA DIFF/SCN) NO Immature Gran % (0.0 - 5.0 %) 1.5 Nucleated RBC % (0.0 - 1.0 /100WBC%) 0.6 Diagnosis, Assessment PlanFree Text A P: Recent Impressions:RADIOLOGY - XR CHEST 1 V 12/30 0400 Report Impression - Status: SIGNED Entered: 12/30/2020 0909 IMPRESSION: Continued progression of bilateral scattered interstitial andgroundglass airspace opacities.Impression By: Jan Pimentel M.D. Assessment:1. Pneumonia with covid-19 s/p CV plasma.2. Acute respiratory failure with hypoxia.3. Morbid obesity. Plan:1. Continue remdesivir (day 5 of 5).2. Steroids.3. Monitor inflammatory markers. CRP has increased to 18.84. Continue ceftriaxone (day 2 of 5) empirically due to increasing CRP and WBC. Rudy Aguilar 12/31/20 1556:AttestationsAttestation needed: supervising physician Physician AttestationAgree w/findings plan:Agree with the findings and plan as documented by TERE Hernandez. Pt with covid-19. She completed 5 days of remdesivir today. Will continue with empiric ceftriaxonefor now for possible bacterial PNA. Wean O2 as tolerated.[ ] at 1557 RPT #: [id number] OF REPORT PRProgress Kqgm5980-63-67J74:16:00L.LQIY10727160-5316JUQpqvk able for patient vhvmTIWXAHWSZHPYOC7371-42-31R01:58:10 [facility] 2020-12-31 15:16:00 [id number] X8/PGO/47QR+o1YIRu2WsVLAeOBNU WYGM37jfoY6vvQClfwvlworGH5K1R0JI872089-30-34Q14:1 6:00 [facility] ([facility])Infectious Dis. Progress NoteREPORT#:[id number] REPORT STATUS: SignedDATE:12/31/20 TIME:151 PATIENT: LORI DELUCA UNIT #: [id number]#: [id number] [address] [birth year] AGE: 55 SEX: F ATTEND: Alfred Escobedo [facility] AUTHOR: Annalisa Hernandez * ALL edits or amendments must be made on the electronic/computer document * MaryAnnalisa E 12/31/20 1516:SubjectiveChief Complaint:PneumoniaHPI:Patient moved to [facility], step down from ICU; WBC trending upwards @ 10.8 and CRP trending upwards @ 18.8 today. Patient states she feels better than previous dayand afebrile today. Review of SystemsConstitutional:Denies: chills, fatigue, fever. Neuro:Denies: confusion, dizziness. Objective Physical ExamGeneral appearance: alert, awake, orientedHead/Eyes: atraumatic, EOMI, normocephalicNeck: full range of motion, non-tenderCardiovascular: regular rate rhythmRespiratory: on oxygenAbdomen: non-tender, softExtremities: moves all, normal capillary refill, no clubbing, no cyanosisNeuro/GRE[employer] PRIZE PACKER: alert, oriented X 3 ResultsFindings/Data:Laboratory Tests 12/31 12/31 12/31 12/30 12/30 1156 0754 0435 1943 1718Chemistry Sodium (134 - 147 mmol/L) 138 Potassium (3.4 - 5.0 mmol/L) 4.7 Chloride (100 - 108 mmol/L) 103 Carbon Dioxide (21 - 32 mmol/L) 34 H Anion Gap (4.0 - 15.0 GAP calc) 1.0 L BUN (7 - 18 MG/DL) 20 H Creatinine (0.6 - 1.0 MG/DL) 0.5 L Glomerular Filtr Rate (>60 >=60 max estimateestGFR) Glucose (70 - 110 MG/DL) 156 H POC Glucose (70 - 110 mg/dL) 122 H 119 H 153 H 185 H Calcium (8.5 - 10.1 MG/DL) 8.5 Laboratory Tests 12/31 0435 Hematology WBC (3.5 - 11.0 K/mm3) 10.8 RBC (4.70 - 6.10 M/mm3) 5.05 Hgb (10.4 - 14.9 G/DL) 13.3 Hct (31.5 - 44.1 %) 45.9 H MCV (84.5 - 98.6 Fl) 90.9 MCH (27.0 - 34.2 pg) 26.3 L MCHC (31.5 - 34.0 G/DL) 29.0 L RDW (11.5 - 14.5 SD) 14.6 H Plt Count (150 - 450 K/mm3) 151 MPV (7.0 - 10.5 fL) 11.70 H Neut % (Auto) (40 - 76 %) 88.4 H Lymph % (Auto) (20.5 - 51.1 %) 5.8 L [place] % (Auto) (1.7 - 9.3 %) 4.1 Eos % (Auto) (0.0 - 6.0 %) 0.0 Baso % (Auto) (0.0 - 2.0 %) 0.2 Neut # (Auto) (1.8 - 7.6 K/mm3) 9.5 H Lymph # (Auto) (0.6 - 3.2 K/mm3) 0.6 [place] # (Auto) (0.3 - 1.1 K/mm3) 0.4 Eos # (Auto) (0.0 - 0.4 K/mm3) 0.0 Baso # (Auto) (0.0 - 0.1 K/mm3) 0.0 Abs Immat Gran (auto) (0.00 - 0.03 x10 3/uL) 0.16 H Add Manual Diff (CRITERIA DIFF/SCN) NO Immature Gran % (0.0 - 5.0 %) 1.5 Nucleated RBC % (0.0 - 1.0 /100WBC%) 0.6 Diagnosis, Assessment PlanFree Text A P: Recent Impressions:RADIOLOGY - XR CHEST 1 V 12/30 0400 Report Impression - Status: SIGNED Entered: 12/30/2020 0909 IMPRESSION: Continued progression of bilateral scattered interstitial andgroundglass airspace opacities.Impression By: DakotahANSMarley Pimentel M.D. Assessment:1. Pneumonia with covid-19 s/p CV plasma.2. Acute respiratory failure with hypoxia.3. Morbid obesity. Plan:1. Continue remdesivir (day 5 of 5).2. Steroids.3. Monitor inflammatory markers. CRP has increased to 18.84. Continue ceftriaxone (day 2 of 5) empirically due to increasing CRP and WBC. Rudy Aguilar 12/31/20 1556:AttestationsAttestation needed: supervising physician Physician AttestationAgree w/findings plan:Agree with the findings and plan as documented by TERE Hernandez. Pt with covid-19. She completed 5 days of remdesivir today. Will continue with empiric ceftriaxonefor now for possible bacterial PNA. Wean O2 as tolerated.[ ] at 1557 at 1604 RPT #: [id number] OF REPORT PRProgress Annp3587-99-55V20:16:00L.KNMR36740048-4554VBNdrjw able for patient tnscBWBAXHOBLRIXRR8722-47-13C85:04:41 [facility] 2020-12-31 13:02:00 BKkgrmxkbhy02348018w dciPSAfjKCtGHHDLZKkK+8uIcjaR8 jb9MD+xBzfcQ+6mQL68m0HUx2qhXOgp5Ur0722-25-72P84:0 2:00 [facility] ([facility])Pulmonology Progress NoteREPORT#:[id number] REPORT STATUS: SignedDATE:12/31/20 TIME:1302 PATIENT: LORI DELUCA UNIT #: [id number]#: [id number] [address] [birth year] AGE: 55 SEX: F ATTEND: Alfred Escobedo [facility] AUTHOR: Sergio Love * ALL edits or amendments must be made on the electronic/computer document * SubjectiveChief Complaint:On 15L/min NCSpO2 94%Reports no dyspnea Review of Systems ROSConstitutional:generalized weakness. Respiratory:Denies: pleuritic pain. Cardiovascular:Denies: chest pain. GI:Denies: abdominal pain. Objective GeneralVS/I O:Last Documented: Result Date Time Temp 36.5 12/31 1201 Pulse Ox 93 12/31 0839 O2 Delivery High flow nasal cannula 12/31 0839 O2 Flow Rate 15 12/31 0839 Pulse 77 12/31 0608 B/P 123/78 12/31 0607 Resp 23 12/31 0600 FiO2 100 12/30 1849 B/P Mean 81 12/30 1730 24 hour I O ending at 0700: 12/31 0700 12/30 1900 Intake Total 500 1350.00 Output Total 1100 200 Balance -600 1150.00 Intake, IV 250.00 Intake, Oral 500 1100 Output, Urine 1100 200 PATIENT WEIGHT: Weight (lb): 400Weight (oz): 2.22Weight (kg): 181.437 Medications:Active Meds + DC'd Last 24 HrsDexamethasone 6 MG BID PO Famotidine 20 MG BID PO Ceftriaxone Sodium 1,000 MG Q24H IV Sterile Water 10 MLLisinopril 20 MG DAILY PO Sertraline HCl 50 MG DAILY PO Dexamethasone Sodium Phosphate 6 MG BID IV (DC) Remdesivir 100 MG Q24H IV Sodium Chloride 250 MLDextrose/Water 50 ML ONCE PRN IV (CKD) Insulin Human Lispro S/SCALE AC HS SUBQ Enoxaparin Sodium 180 MG Q12HR SUBQ Guaifenesin/Dextromethorphan 10 ML Q4H PRN PRN PO Physical ExamHead/eyes: atraumatic, normocephalicENT: ENT: normal nose, normal sinusCardiovascular: normal heart sounds, normal S1/S2, regular rate rhythm, no rub, no gallopAbdomen: soft, normal bowel soundsExtremities: edema, no cyanosis, no edemaNeuro/GRE[employer]IZE PACKER: alert, oriented X 3, CNII-XII intact ResultsFindings/Data:Laboratory Tests 12/31/20 0435:[Embedded Image Not Available]Laboratory Tests 12/31 12/31 12/31 12/30 1156 0754 0435 1943Chemistry Sodium (134 - 147 mmol/L) 138 Potassium (3.4 - 5.0 mmol/L) 4.7 Chloride (100 - 108 mmol/L) 103 Carbon Dioxide (21 - 32 mmol/L) 34 H Anion Gap (4.0 - 15.0 GAP calc) 1.0 L BUN (7 - 18 MG/DL) 20 H Creatinine (0.6 - 1.0 MG/DL) 0.5 L Glomerular Filtr Rate (>60 estGFR) >=60 max estimate Glucose (70 - 110 MG/DL) 156 H POC Glucose (70 - 110 mg/dL) 122 H 119 H 153 H Calcium (8.5 - 10.1 MG/DL) 8.5 12/30 1718 Chemistry POC Glucose (70 - 110 mg/dL) 185 H Laboratory Tests 12/31 0435 Hematology WBC (3.5 - 11.0 K/mm3) 10.8 RBC (4.70 - 6.10 M/mm3) 5.05 Hgb (10.4 - 14.9 G/DL) 13.3 Hct (31.5 - 44.1 %) 45.9 H MCV (84.5 - 98.6 Fl) 90.9 MCH (27.0 - 34.2 pg) 26.3 L MCHC (31.5 - 34.0 G/DL) 29.0 L RDW (11.5 - 14.5 SD) 14.6 H Plt Count (150 - 450 K/mm3) 151 MPV (7.0 - 10.5 fL) 11.70 H Neut % (Auto) (40 - 76 %) 88.4 H Lymph % (Auto) (20.5 - 51.1 %) 5.8 L [place] % (Auto) (1.7 - 9.3 %) 4.1 Eos % (Auto) (0.0 - 6.0 %) 0.0 Baso % (Auto) (0.0 - 2.0 %) 0.2 Neut # (Auto) (1.8 - 7.6 K/mm3) 9.5 H Lymph # (Auto) (0.6 - 3.2 K/mm3) 0.6 [place] # (Auto) (0.3 - 1.1 K/mm3) 0.4 Eos # (Auto) (0.0 - 0.4 K/mm3) 0.0 Baso # (Auto) (0.0 - 0.1 K/mm3) 0.0 Abs Immat Gran (auto) (0.00 - 0.03 x10 3/uL) 0.16 H Add Manual Diff (CRITERIA DIFF/SCN) NO Immature Gran % (0.0 - 5.0 %) 1.5 Nucleated RBC % (0.0 - 1.0 /100WBC%) 0.6 Diagnosis, Assessment PlanFree Text A P:Assessment1. Acute hypoxic respiratory failure2. Acute viral pneumonia due to COVID-19 infection3. Sleep apnea Plan Comfortable on 15L/min NCNeeds to wear her NIPPV QHS and for naps during the dayCTA without pulmonary embolism, does show bilateral patchy infiltrates consistent with COVID-19Remdisivir day 5 of 5S/p convalescent plasmaContinue Dexamethasone BIDInfectious disease on boardEnhanced anticoagulationGI prophylaxis IMCU at 1618 RPT #: [id number] OF REPORT PRProgress Usdc2201-40-47R01:02:00L.AGSW30921579-1982ZHCfnvq able for patient hkjaJMOXJJRGDKGHLB4789-51-22S52:18:50 [facility] 2020-12-31 13:02:00 KPvdudxgvcp44143756u 0XRaet27CPPxqmFgHZ9jVzmuNrUbL 1XoaQzb5tn+nq9Wa0LEKyxLVoYTwj+meno2333-99-31G34:0 2:00 [facility] ([facility])Pulmonology Progress NoteREPORT#:[id number] REPORT STATUS: SignedDATE:12/31/20 TIME:1302 PATIENT: LORI DELUCA UNIT #: [id number]#: [id number] [address] [birth year] AGE: 55 SEX: F ATTEND: Alfred Escobedo [facility] AUTHOR: Sergio Love * ALL edits or amendments must be made on the electronic/computer document * Sergio Love 12/31/20 1302:SubjectiveChief Complaint:On 15L/min NCSpO2 94%Reports no dyspnea Review of Systems ROSConstitutional:generalized weakness. Respiratory:Denies: pleuritic pain. Cardiovascular:Denies: chest pain. GI:Denies: abdominal pain. Objective GeneralVS/I O:Last Documented: Result Date Time Temp 36.5 12/31 1201 Pulse Ox 93 12/31 0839 O2 Delivery High flow nasal cannula 12/31 0839 O2 Flow Rate 15 12/31 0839 Pulse 77 12/31 0608 B/P 123/78 12/31 0607 Resp 23 12/31 0600 FiO2 100 12/30 1849 B/P Mean 81 12/30 1730 24 hour I O ending at 0700: 12/31 0700 12/30 1900 Intake Total 500 1350.00 Output Total 1100 200 Balance -600 1150.00 Intake, IV 250.00 Intake, Oral 500 1100 Output, Urine 1100 200 PATIENT WEIGHT: Weight (lb): 400Weight (oz): 2.22Weight (kg): 181.437 Medications:Active Meds + DC'd Last 24 HrsDexamethasone 6 MG BID PO Famotidine 20 MG BID PO Ceftriaxone Sodium 1,000 MG Q24H IV Sterile Water 10 MLLisinopril 20 MG DAILY PO Sertraline HCl 50 MG DAILY PO Dexamethasone Sodium Phosphate 6 MG BID IV (DC) Remdesivir 100 MG Q24H IV Sodium Chloride 250 MLDextrose/Water 50 ML ONCE PRN IV (CKD) Insulin Human Lispro S/SCALE AC HS SUBQ Enoxaparin Sodium 180 MG Q12HR SUBQ Guaifenesin/Dextromethorphan 10 ML Q4H PRN PRN PO Physical ExamHead/eyes: atraumatic, normocephalicENT: ENT: normal nose, normal sinusCardiovascular: normal heart sounds, normal S1/S2, regular rate rhythm, no rub, no gallopAbdomen: soft, normal bowel soundsExtremities: edema, no cyanosis, no edemaNeuro/GRE[employer]IZE PACKER: alert, oriented X 3, CNII-XII intact ResultsFindings/Data:Laboratory Tests 12/31/20 0435:[Embedded Image Not Available]Laboratory Tests 12/31 12/31 12/31 12/30 1156 0754 0435 1943Chemistry Sodium (134 - 147 mmol/L) 138 Potassium (3.4 - 5.0 mmol/L) 4.7 Chloride (100 - 108 mmol/L) 103 Carbon Dioxide (21 - 32 mmol/L) 34 H Anion Gap (4.0 - 15.0 GAP calc) 1.0 L BUN (7 - 18 MG/DL) 20 H Creatinine (0.6 - 1.0 MG/DL) 0.5 L Glomerular Filtr Rate (>60 estGFR) >=60 max estimate Glucose (70 - 110 MG/DL) 156 H POC Glucose (70 - 110 mg/dL) 122 H 119 H 153 H Calcium (8.5 - 10.1 MG/DL) 8.5 12/30 1718 Chemistry POC Glucose (70 - 110 mg/dL) 185 H Laboratory Tests 12/31 0435 Hematology WBC (3.5 - 11.0 K/mm3) 10.8 RBC (4.70 - 6.10 M/mm3) 5.05 Hgb (10.4 - 14.9 G/DL) 13.3 Hct (31.5 - 44.1 %) 45.9 H MCV (84.5 - 98.6 Fl) 90.9 MCH (27.0 - 34.2 pg) 26.3 L MCHC (31.5 - 34.0 G/DL) 29.0 L RDW (11.5 - 14.5 SD) 14.6 H Plt Count (150 - 450 K/mm3) 151 MPV (7.0 - 10.5 fL) 11.70 H Neut % (Auto) (40 - 76 %) 88.4 H Lymph % (Auto) (20.5 - 51.1 %) 5.8 L [place] % (Auto) (1.7 - 9.3 %) 4.1 Eos % (Auto) (0.0 - 6.0 %) 0.0 Baso % (Auto) (0.0 - 2.0 %) 0.2 Neut # (Auto) (1.8 - 7.6 K/mm3) 9.5 H Lymph # (Auto) (0.6 - 3.2 K/mm3) 0.6 [place] # (Auto) (0.3 - 1.1 K/mm3) 0.4 Eos # (Auto) (0.0 - 0.4 K/mm3) 0.0 Baso # (Auto) (0.0 - 0.1 K/mm3) 0.0 Abs Immat Gran (auto) (0.00 - 0.03 x10 3/uL) 0.16 H Add Manual Diff (CRITERIA DIFF/SCN) NO Immature Gran % (0.0 - 5.0 %) 1.5 Nucleated RBC % (0.0 - 1.0 /100WBC%) 0.6 Diagnosis, Assessment PlanFree Text A P:Assessment1. Acute hypoxic respiratory failure2. Acute viral pneumonia due to COVID-19 infection3. Sleep apnea Plan Comfortable on 15L/min NCNeeds to wear her NIPPV QHS and for naps during the dayCTA without pulmonary embolism, does show bilateral patchy infiltrates consistent with COVID-19Remdisivir day 5 of 5S/p convalescent plasmaContinue Dexamethasone BIDInfectious disease on boardEnhanced anticoagulationGI prophylaxis IMCU Daniel Tariq 12/31/202021:Diagnosis, Assessment PlanFree Text A P:evaluated, discussed with RENTAL SALESPERSON . discussed planAgree with above at 1618 at 2021 RPT #: [id number] OF REPORT PRProgress Fkdc7455-97-37Q10:02:00L.XYOR55335036-4290EMOqqqe able for patient kbvgDCKSADLOGRYETX7947-46-95Q65:22:30 [facility] 2020-12-31 12:46:00 ITjwpgiaswm78077041P FV/Psxft2IIkei+Oex/phmgptUM0G YMfPRhj6koNeD/EpfLlgFJFVkAvuoxtNQw3979-51-40F68:4 6:00 [facility] Progress NoteREPORT#:[id number] REPORT STATUS: SignedDATE:12/31/20 TIME:1246 PATIENT: LORI DELUCA UNIT #: [id number]#: [id number] [address] [birth year] AGE: 55 SEX: F ATTEND: Alfred Escobedo [facility] AUTHOR: Yandy Johnson MD * ALL edits or amendments must be made on the electronic/computer document * SubjectiveChief Complaint:stable. On high flow oxygen currently 15 L- some dry cough Review of SystemsRespiratory:Denies: SOB. Cardiovascular:Denies: chest pain. GI:Denies: nausea, vomiting. Objective GeneralVS/I O:Vital Signs: Date Time Temp Pulse Resp B/P B/P Pulse O2 O2 Flow FiO2 Mean Ox Delivery Rate 12/31 1201 36.5 06/16 0839 93 High flow 15 nasal cannula /16 0800 36.8 06/16 0608 77 92 06/16 0607 78 123/78 06/16 0600 81 23 06/16 0500 77 06/16 0445 81 26 92 06/16 0430 71 95 06/16 0415 66 26 94 06/16 0400 78 06/16 0323 36.9 06/16 0100 79 114/72 93 06/16 0045 71 119/68 92 06/16 0030 76 113/63 92 /16 0015 74 124/75 93 06/16 0000 69 27 124/74 94 06/15 2300 36.8 06/15 2201 High flow 15 nasal cannula / 1945 36.7 06/15 1940 73 95 06/15 1930 74 27 110/70 95 06/15 1915 71 26 108/64 96 06/15 1900 68 25 108/60 94 06/15 1849 96 High flow 15 100 nasal cannula /15 1730 75 30 109/65 81 90 06/15 1724 36.8 06/15 1700 81 29 106/67 82 91 06/15 1630 73 31 114/76 88 95 06/15 1600 High flow 15 nasal cannula /15 1600 67 22 111/61 80 95 06/15 1516 73 25 107/62 77 88 06/15 1400 69 26 121/70 90 96 06/15 1301 74 30 113/62 82 94 24 hour I O ending at 0700: 12/31 0700 06/15 1900 Intake Total 500 1350.00 Output Total 1100 200 Balance -600 1150.00 Intake, IV 250.00 Intake, Oral 500 1100 Output, Urine 1100 200 PATIENT WEIGHT: Weight (lb): 400Weight (oz): 2.22Weight (kg): 181.437 Physical ExamGeneral appearance: alert, awakeNeck: non-tender, no JVDCardiovascular: regular rate rhythm, no murmur, no rub, no thrillRespiratory: decreased breath sounds, hypoxiaAbdomen: non-tender, normal bowel sounds, soft, no distention, no guardingExtremities: moves all, no edemaNeuro/[employer]: alert, oriented X 3, normal speech, no motor deficits, no sensory deficitsPsychiatry: normal affect Diagnosis, Assessment Plan Free Text DxA P NotesFree text DxA P notes: Acute hypoxic respiratory failure with COVID-19 pneumoniaWe will admit the patient Start the patient on steroidsWe will hold off on antibiotics as patient is afebrile white count is normal we will try to get CT scan of the chest to see if there are some infiltrates or not.We will get CT of the chest to assess the infiltrates As D-dimer is elevated and troponins are elevated will continue with therapeuticanticoagulationSymptomatic managementWe will ask infectious disease and pulmonary to evaluate Started the patient on remdesivirContinue supplemental oxygen to keep O2 sat above 90% and monitor respiratory status closelyProning NSTEMIPossibly type II in the setting of COVID-19 pneumonia with hypoxia. We will continue to trend troponins. Keep the patient on aspirin statin. We will get an echocardiogram. Monitor on telemetry. HypertensionResume lisinopril monitor blood pressure keep on as needed hydralazine PrediabetesNow that the patient will be on steroids we will keep on insulin sliding scale monitor blood sugars keep on diabetic diet COPDDoes not appear to be in COPD exacerbation will be on steroids supplemental oxygen. Monitor respiratory status closely. Pulmonary on board. DVT GI prophylaxisPatient is full codePatient was explained the plan in detail all medication effect side effects werediscussed all was well associated with the planNext of kin sister Madelyn ferguson [phone] 1Covid 19 PneumoniaCOPDHTNDMMorbid Obesity Plan------Continue on remdesevir-Continue COVID treatment protocol ( steroids, vit c/d/zinc)-Prone positioning as tolerated-Monitor inflammatory markers-Hiflow oxygen prn -Pulm and ID following-Accuchecks with ISS-Diabetic diet-Ensure tight glucose control-Resume home meds for BP dwbpyhk-Tmtsa-dsiftr completion of therapy and clinical improvement 12/30/2020- acute respiratory failure secondary to covid. 15 L high flow oxygen, wean as tolerated, cont steriod/remdesivir. PUl following- Covid 19 Pneumonia. ID following- COPD, neb tx- HTN; cont home med- DM; SSI- Morbid Obesity; lifestyle modification- Depression. zoloft- Debility. PT to mobilizeDVT/PPX- lovenoxplan. cont remdesivir/wean oxygenWas moved to ICU yesterday as was repeatedly taken off oxygen, currently more stable and on my evaluation is keeping on her oxygenIf stable can downgrade to IMCU 12/31/2020- acute respiratory failure secondary to covid. 15 L high flow oxygen, wean as tolerated, cont steriod/remdesivir. There is day 3 of remdesivir.- Covid 19 Pneumonia. ID following- COPD, neb tx- HTN; cont home med- DM; SSI- Morbid Obesity; lifestyle modification- Depression. zoloft- Debility. PT to mobilizeDVT/PPX- lovenox weight-basedplan. cont remdesivir/wean oxygenCurrently in IMCU, if can wean oxygen down to 10 L, will transfer to telemetry CODE STATUSFull code Noted patient has no official past medical power of patent prosecution attorney but and next of kinis her sister Madelyn Ferguson which she told me can make decisions for her if he everbecomes incapacitated. at 1249 RPT #: [id number] OF REPORT PRProgress Siyz3033-81-24A20:46:00L.TSEZ59992921-4292DZRpswv able for patient oqdtKDBJRXFZGFREGQ7734-56-50U20:49:32 [facility] 2020-12-30 15:04:00 QZzydqltgzd94377509Z 1Lv1aA0Qz3/mj+8gZNkO+WEnWkeWA JH5EcB4ePJ9bHa3JMKfyUTONFkJcm0fK/B2285-80-05K37:0 4:00 [facility] ([facility])Pulmonology Progress NoteREPORT#:[id number] REPORT STATUS: SignedDATE:12/30/20 TIME:1504 PATIENT: LORI DELUCA UNIT #: [id number]#: [id number] ROOM/BED: CJS06-3XZF: 69 AGE: 55 SEX: F ATTEND: Alfred Escobedo [facility] AUTHOR: Daniel Tariq MD * ALL edits or amendments must be made on the electronic/computer document * SubjectiveChief Complaint:On 13L/min NCReports no dyspnea Objective GeneralVS/I O:Last Documented: Result Date Time B/P 143/79 12/30 1101 B/P Mean 103 12/30 1101 Temp 35.6 12/30 1101 Pulse Ox 95 12/30 1100 Pulse 71 12/30 1100 Resp 20 12/30 1100 FiO2 100 12/30 1011 O2 Delivery High flow nasal cannula 12/30 1011 O2 Flow Rate 15 12/30 1011 24 hour I O ending at 0700: 12/30 0700 12/29 1900 Intake Total 250.00 700.00 Output Total 850 700 Balance -600.00 0 Intake, IV 250.00 400.00 Intake, Oral 300 Output, Urine 850 700 Patient 181.437 kg Weight PATIENT WEIGHT: Weight (lb): 400Weight (oz): 2.22Weight (kg): 181.437 Medications:Active Meds + DC'd Last 24 HrsFamotidine 20 MG BID PO Ceftriaxone Sodium 1,000 MG Q24H IV Sterile Water 10 MLLisinopril 20 MG DAILY PO Sertraline HCl 50 MG DAILY PO Dexamethasone Sodium Phosphate 6 MG BID IV Remdesivir 100 MG Q24H IV Sodium Chloride 250 MLDextrose/Water 50 ML ONCE PRN IV (CKD) Insulin Human Lispro S/SCALE AC HS SUBQ Enoxaparin Sodium 180 MG Q12HR SUBQ Dexamethasone Sodium Phosphate 6 MG DAILY IV (DC) Guaifenesin/Dextromethorphan 10 ML Q4H PRN PRN PO Physical ExamGeneral appearance: alert, awakeHead/eyes: atraumatic, normocephalicENT: ENT: normal nose, normal sinusCardiovascular: normal heart sounds, normal S1/S2, regular rate rhythm, no rub, no gallopAbdomen: soft, normal bowel soundsExtremities: edema, no cyanosis, no edemaNeuro/GREEN PRIZE PACKER: alert, oriented X 3, CNII-XII intactPsychiatry: normal affect, normal judgment/insight ResultsFindings/Data:Laboratory Tests 12/30/20 0520:[Embedded Image Not Available] 12/30/20 0425:[Embedded Image Not Available]Laboratory Tests 12/29 12/29 3733 7083 Blood Gas Puncture Site (DESCRIPTION ARTKIT) Right Radial Right Radial ABG pH (7.35 - 7.45 pH units) 7.34 L 7.28 L ABG pCO2 (35 - 45 mmHg) 66 H 75 *H ABG pO2 (80 - 100 mmHg) 74 L 71 L ABG PO2/FiO2 Ratio (200 mm/Hg) 105.7 L 101.4 L ABG HCO3 (22.0 - 26.0 mmol/L) 34.6 H 34.9 H ABG O2 Saturation (90 - 100 %) 94 92 ABG Base Excess (-3.0 - 3.0 mmol/L) 6.3 H 5.3 H Tosha Test (POSITIVE Circ.CHK) Yes Yes Vent Mode (Vent Mode Descript) BiPAP BiPAP FiO2 (21 - 100 % (calc)) 70 70 PEEP (0.0 - 99.9 cm H20) 8.0 Laboratory Tests 12/30 12/30 12/30 12/30 1121 0757 0521 0425 Chemistry POC Glucose (70 - 110 mg/dL) 181 H 138 H 152 H C-Reactive Protein (0.000 - 0.3 MG/DL) 18.800 H 12/30 12/29 12/29 0425 2037 1640 Chemistry Sodium (134 - 147 mmol/L) 139 Potassium (3.4 - 5.0 mmol/L) 4.5 Chloride (100 - 108 mmol/L) 102 Carbon Dioxide (21 - 32 mmol/L) 34 H Anion Gap (4.0 - 15.0 GAP calc) 3.0 L BUN (7 - 18 MG/DL) 22 H Creatinine (0.6 - 1.0 MG/DL) 0.6 Glomerular Filtr Rate (>60 estGFR) >=60 max estimate Glucose (70 - 110 MG/DL) 155 H POC Glucose (70 - 110 mg/dL) 133 H 122 H Calcium (8.5 - 10.1 MG/DL) 8.3 L Ferritin (3.0 - 105.0 NG/ML) 227.4 H Lactate Dehydrogenase (84 - 246 Unit/L) 310 H Laboratory Tests 12/30 0425 Coagulation D-Dimer (215 - 500 ng/mLFEU) 552 *H Laboratory Tests 12/30 0520 Hematology WBC (3.5 - 11.0 K/mm3) 8.2 RBC (4.70 - 6.10 M/mm3) 4.82 Hgb (10.4 - 14.9 G/DL) 13.0 Hct (31.5 - 44.1 %) 43.8 MCV (84.5 - 98.6 Fl) 90.9 MCH (27.0 - 34.2 pg) 27.0 MCHC (31.5 - 34.0 G/DL) 29.7 L RDW (11.5 - 14.5 SD) 14.5 Plt Count (150 - 450 K/mm3) 142 L MPV (7.0 - 10.5 fL) 11.90 H Neut % (Auto) (40 - 76 %) 86.4 H Lymph % (Auto) (20.5 - 51.1 %) 7.8 L [place] % (Auto) (1.7 - 9.3 %) 4.5 Eos % (Auto) (0.0 - 6.0 %) 0.0 Baso % (Auto) (0.0 - 2.0 %) 0.1 Neut # (Auto) (1.8 - 7.6 K/mm3) 7.1 Lymph # (Auto) (0.6 - 3.2 K/mm3) 0.6 [place] # (Auto) (0.3 - 1.1 K/mm3) 0.4 Eos # (Auto) (0.0 - 0.4 K/mm3) 0.0 Baso # (Auto) (0.0 - 0.1 K/mm3) 0.0 Abs Immat Gran (auto) (0.00 - 0.03 x10 3/uL) 0.10 H Add Manual Diff (CRITERIA DIFF/SCN) NO Immature Gran % (0.0 - 5.0 %) 1.2 Nucleated RBC % (0.0 - 1.0 /100WBC%) 0.4 Radiology data:Recent Impressions:RADIOLOGY - XR CHEST 1 V 12/30 0400 Report Impression - Status: SIGNED Entered: 12/30/2020 0909 IMPRESSION: Continued progression of bilateral scattered interstitial andgroundglass airspace opacities.Impression By: DakotahANSMarley - Adam Pimentel M.D. Diagnosis, Assessment PlanFree Text A P:Assessment1. Acute hypoxic respiratory failure2. Acute viral pneumonia due to COVID-19 infection3. Sleep apnea Planupgraded yesterday with desaturation Currently more comfortable D/G to IMUNeeds to wear her NIPPV QHS and for naps during the dayCTA without pulmonary embolism, does show bilateral patchy infiltrates consistent with COVID-19Remdisivir day 4 of 5S/p convalescent plasmaexamethasone to BIDInfectious disease on boardEnhanced anticoagulationGI prophylaxis at 1510 RPT #: [id number] OF REPORT PRProgress Juxy8053-18-08O23:04:00L.HKAL75675916-1541SORwvgo able for patient dlgjEEKJPVRBULFBNK2808-08-46J21:10:47 [facility] 2020-12-30 11:33:00 [id number] hLlbkKyAT4dayUT/MSYhgVwbpKltl oXf9NxU1FuAWfHzh1M63iGZ5PJw8HjqULV7615-20-71X11:3 3:00 [facility] Progress NoteREPORT#:[id number] REPORT STATUS: SignedDATE:12/30/20 TIME:1133 PATIENT: LORI DELUCA UNIT #: [id number]#: [id number] [address] AGE: 55 SEX: F ATTEND: Alfred Escobedo [facility] AUTHOR: Yandy Johnson MD * ALL edits or amendments must be made on the electronic/computer document * SubjectiveChief Complaint:stable. On high flow oxygen currently Review of SystemsRespiratory:Reports: non productive cough, SOB. Cardiovascular:Denies: chest pain. GI:Denies: nausea, vomiting. Neuro:Denies: dizziness. Objective GeneralVS/I O:Vital Signs: Date Time Temp Pulse Resp B/P B/P Pulse O2 O2 Flow FiO2 Mean Ox Delivery Rate 12/30 1101 35.6 143/79 103 12/30 1100 71 20 95 12/30 1046 69 27 146/72 104 88 12/30 1045 67 20 98 12/30 1031 71 24 131/83 102 97 12/30 1030 73 22 94 12/30 1016 77 27 129/69 96 06/15 1015 75 24 06/15 1011 95 High flow 15 100 nasal cannula 06/15 1000 74 35 134/84 101 95 06/15 0945 73 36 127/73 95 96 06/15 0930 81 37 118/74 91 93 06/15 0916 81 35 115/66 86 68 06/15 0915 81 43 86 06/15 0900 78 29 111/74 89 67 06/15 0849 BiPAP 50 06/15 0845 75 28 112/71 87 90 06/15 0830 76 29 113/68 85 69 06/15 0819 70 97 70 06/15 0819 100 BiPAP 70 06/15 0815 65 22 115/69 86 97 06/15 0800 71 24 121/69 90 99 06/15 0745 63 29 120/71 90 98 06/15 0730 64 21 122/71 90 97 06/15 0715 36.1 65 22 122/63 86 97 06/15 0700 65 22 123/68 90 95 06/15 0615 68 24 127/75 95 95 06/15 0600 68 23 127/77 96 95 06/15 0545 65 127/79 97 95 06/15 0530 65 128/74 96 97 06/15 0516 66 127/71 90 96 06/15 0501 65 156/74 105 95 06/15 0445 70 28 133/63 87 97 06/15 0431 69 28 127/63 90 96 06/15 0428 72 97 70 06/15 0415 74 30 154/82 105 93 06/15 0400 35.9 67 23 141/81 101 95 BiPAP 70 06/15 0400 67 23 141/81 106 95 06/15 0345 68 22 134/85 105 95 06/15 0330 66 24 133/75 99 97 06/15 0315 67 22 128/72 94 100 06/15 0300 67 22 132/78 100 97 06/15 0245 67 24 130/75 97 97 06/15 0230 64 24 133/80 100 98 06/15 0215 66 23 134/78 101 96 06/15 0200 66 24 130/79 98 96 06/15 0145 66 24 127/74 96 96 06/15 0130 68 24 131/78 99 96 06/15 0115 66 25 134/73 96 96 06/15 0100 67 23 134/76 97 97 06/15 0045 67 24 128/74 95 97 /15 0030 66 22 130/77 97 97 /15 0015 66 23 121/77 95 96 /15 0006 66 97 70 / 0000 36.1 68 22 118/78 91 97 BiPAP 70 /15 0000 68 22 118/78 93 97 /14 2345 69 21 107/70 84 96 06/14 2331 72 26 115/64 83 94 /14 2315 68 23 128/71 94 95 /14 2300 73 21 130/77 94 94 /14 2245 72 21 128/69 92 94 /14 2230 72 24 133/70 95 96 /14 2215 72 23 132/73 96 95 /14 2200 76 22 133/72 95 92 /14 2145 75 22 125/66 88 92 /14 2130 76 23 133/69 96 93 /14 2115 75 24 130/65 90 92 /14 2100 76 22 143/70 100 91 14 2045 79 22 141/68 97 92 14 2030 81 26 134/85 100 96 12/29 2014 84 23 130/71 94 92 14 1999 BiPAP 70 12/30 1999 35.9 78 25 134/75 94 95 BiPAP 70 12/30 1999 78 25 134/75 99 95 14 1945 87 25 138/78 96 93 12/29 1930 80 23 145/83 107 93 14 1924 79 96 70 12/29 1915 86 30 128/78 96 97 12/29 1901 86 28 119/79 94 97 14 1655 36.7 108 15 130/83 98.4 84 Nasal cannula 12/29 1138 38.0 103 16 128/62 84.2 90 Nasal cannula 24 hour I O ending at 0700: 12/30 0700 12/29 1900 Intake Total 250.00 700.00 Output Total 850 700 Balance -600.00 0 Intake, IV 250.00 400.00 Intake, Oral 300 Output, Urine 850 700 Patient 181.437 kg Weight PATIENT WEIGHT: Weight (lb): 400Weight (oz): 2.22Weight (kg): 181.437 Physical ExamGeneral appearance: alert, awakeCardiovascular: regular rate rhythm, no murmur, no rub, no thrillRespiratory: decreased breath sounds, hypoxiaAbdomen: non-tender, normal bowel sounds, soft, no distention, no guardingExtremities: moves all, no edemaNeuro/GREEN PRIZE PACKER: alert, oriented X 3, normal speech, no motor deficits, no sensory deficitsPsychiatry: normal affect Diagnosis, Assessment Plan Free Text DxA P NotesFree text DxA P notes: Acute hypoxic respiratory failure with COVID-19 pneumoniaWe will admit the patient Start the patient on steroidsWe will hold off on antibiotics as patient is afebrile white count is normal we will try to get CT scan of the chest to see if there are some infiltrates or not.We will get CT of the chest to assess the infiltrates As D-dimer is elevated and troponins are elevated will continue with therapeuticanticoagulationSymptomatic managementWe will ask infectious disease and pulmonary to evaluate Started the patient on remdesivirContinue supplemental oxygen to keep O2 sat above 90% and monitor respiratory status closelyProning NSTEMIPossibly type II in the setting of COVID-19 pneumonia with hypoxia. We will continue to trend troponins. Keep the patient on aspirin statin. We will get an echocardiogram. Monitor on telemetry. HypertensionResume lisinopril monitor blood pressure keep on as needed hydralazine PrediabetesNow that the patient will be on steroids we will keep on insulin sliding scale monitor blood sugars keep on diabetic diet COPDDoes not appear to be in COPD exacerbation will be on steroids supplemental oxygen. Monitor respiratory status closely. Pulmonary on board. DVT GI prophylaxisPatient is full codePatient was explained the plan in detail all medication effect side effects werediscussed all was well associated with the planNext of kin sister Madelyn ferguson [phone] 1Covid 19 PneumoniaCOPDHTNDMMorbid Obesity Plan------Continue on remdesevir-Continue COVID treatment protocol ( steroids, vit c/d/zinc)-Prone positioning as tolerated-Monitor inflammatory markers-Hiflow oxygen prn -Pulm and ID following-Accuchecks with ISS-Diabetic diet-Ensure tight glucose control-Resume home meds for BP lyknecg-Mysbg-tjzqyc completion of therapy and clinical improvement 12/30/2020- acute respiratory failure secondary to covid. 15 L high flow oxygen, wean as tolerated, cont steriod/remdesivir. PUl following- Covid 19 Pneumonia. ID following- COPD, neb tx- HTN; cont home med- DM; SSI- Morbid Obesity; lifestyle modification- Depression. zoloft- Debility. PT to mobilizeDVT/PPX- lovenoxplan. cont remdesivir/wean oxygenWas moved to ICU yesterday as was repeatedly taken off oxygen, currently more stable and on my evaluation is keeping on her oxygenIf stable can downgrade to IMCU at 1135 RPT #: [id number] OF REPORT PRProgress Rfvj8750-55-69U34:33:00L.UTMV97309474-0769OGTngxe able for patient eukkEAIYJCXVZSOEJT1445-49-25Z41:36:15 [facility] 2020-12-30 10:44:00 QKjqvtfoisc95430171i 2q+oHejBZEMoGzchubz8zlPJXaIIb LpJvnVBwuAMSB9QYyRWvMfZwQXWkuNpdjY9749-07-27I41:4 4:00 [facility] ([facility])Infectious Dis. Progress NoteREPORT#:[id number] REPORT STATUS: SignedDATE:12/30/20 TIME:1044 PATIENT: LORI DELUCA UNIT #: [id number]#: [id number] [address] [birth year] AGE: 55 SEX: F ATTEND: Alfred Escobedo [facility] AUTHOR: Andrew Aguilar MD * ALL edits or amendments must be made on the electronic/computer document * SubjectiveChief Complaint:PneumoniaHPI:Pt was transferred to the ICU. O2 requirements increased. Review of SystemsConstitutional:Denies: fever. Objective GeneralVS/I O:Last Documented: Result Date Time Pulse Ox 95 12/30 1011 FiO2 100 12/30 1011 O2 Delivery High flow nasal cannula 12/30 1011 O2 Flow Rate 15 12/30 1011 B/P 113/68 12/30 0830 B/P Mean 85 12/30 0830 Pulse 76 12/30 0830 Resp 29 12/30 0830 Temp 36.1 12/30 0715 Vital SignsDate Temp Pulse Resp B/P B/P Mean Pulse Ox HqQ557/14-12/30 35.9-38.0 63-108 15-30 107-156/62-85 83-107 69-100 50-100 24 hour I O ending at 0700: 12/30 0700 12/29 1900 Intake Total 250.00 700.00 Output Total 850 700 Balance -600.00 0 Intake, IV 250.00 400.00 Intake, Oral 300 Output, Urine 850 700 Patient 181.437 kg Weight PATIENT WEIGHT: Weight (lb): 400Weight (oz): 2.22Weight (kg): 181.437 Physical ExamGeneral appearance: awakeHead/Eyes: atraumatic, clear cornea, EOMI, normal conjunctiva/sclera, normal eyelids/periorb, normocephalicNeck: full range of motion, supple/no meningismus, no masses or swellingCardiovascular: regular rate rhythmRespiratory: on oxygen, symmetric expansionAbdomen: non-tender, normal bowel sounds, soft, no CVA tenderness, no distention, no guarding, no mass/organomegaly, no reboundExtremities: normal temperature, no contracture, no cyanosisMusculoskeletal: no joint swellingSkin: normal color, normal turgor, no rashPsychiatry: normal affect, normal judgment/insight, normal mood Diagnosis, Assessment PlanFree Text A P:Labs:WBC normal 6/12, normal 6/15Creatinine slight high 6/12, normal 6/15ALT normal 6/12 Imaging:CTA no PE, there were bilateral infiltrates 12 Assessment:1. Pneumonia with covid-19 s/p CV plasma.2. Acute respiratory failure with hypoxia.3. Morbid obesity. Plan:1. Continue remdesivir (day 4 of 5).2. Steroids.3. Monitor inflammatory markers. CRP has increased.4. Start ceftriaxone. at 1800 RPT #: [id number] OF REPORT PRProgress Hsgj5143-76-31V90:44:00L.ROZM04104444-9798VUItjoy able for patient nsruMZXUSDHHOZUELL8877-53-11L84:01:05 [facility] 2020-12-29 15:36:00 LHpavngcrhr35026447v pmDB0181QrjC+DVqADMwELthoPDrW nk0+HFJ280KEbFJt8n9TF8K+u61VuflVDM1351-42-13A43:3 6:00 [facility])Pulmonology Progress NoteREPORT#:[id number] REPORT STATUS: SignedDATE:12/29/20 TIME:153 PATIENT: LORI DELUCA UNIT #: [id number]#: [id number] [address] [birth year] AGE: 55 SEX: F ATTEND: Alfred Escobedo [facility] AUTHOR: Sergio Love * ALL edits or amendments must be made on the electronic/computer document * SubjectiveChief Complaint:On 13L/min NCReports no dyspnea Review of Systems ROSConstitutional:generalized weakness. Respiratory:Denies: pleuritic pain. Cardiovascular:Denies: chest pain. GI:Denies: abdominal pain. Objective GeneralVS/I O:Last Documented: Result Date Time Pulse Ox 90 12/29 1138 B/P 128/62 12/29 1138 B/P Mean 84.2 12/29 1138 O2 Delivery Nasal cannula 12/29 1138 Temp 38.0 12/29 1138 Pulse 103 12/29 1138 Resp 16 12/29 1138 FiO2 72 12/29 0945 O2 Flow Rate 13 12/29 0945 24 hour I O ending at 0700: 12/29 0700 12/28 1900 Intake Total 266 Output Total Balance 266 Intake, Fresh 216 Frozen Plasma Intake, IV 50 PATIENT WEIGHT: Weight (lb): 400Weight (oz): 2.22Weight (kg): 181.437 Medications:Active Meds + DC'd Last 24 HrsLisinopril 20 MG DAILY PO Sertraline HCl 50 MG DAILY PO Remdesivir 100 MG Q24H IV Sodium Chloride 250 MLDiphenhydramine HCl 25 MG Q4H PRN PRN IV (DC) Dextrose/Water 50 ML ONCE PRN IV (CKD) Remdesivir 100 MG Q24H IV (DCD) Sodium Chloride 250 MLRemdesivir 100 MG Q24H IV (DC) Sodium Chloride 250 MLInsulin Human Lispro S/SCALE AC HS SUBQ Enoxaparin Sodium 180 MG Q12HR SUBQ Sodium Chloride 50 ML Q24H IV (DC) Dexamethasone Sodium Phosphate 6 MG DAILY IV Guaifenesin/Dextromethorphan 10 ML Q4H PRN PRN PO Ceftriaxone Sodium 1,000 MG X1ED STA IV (DC) Sodium Chloride 100 ML Physical ExamHead/eyes: atraumatic, normocephalicENT: ENT: normal nose, normal sinusCardiovascular: normal heart sounds, normal S1/S2, regular rate rhythm, no rub, no gallopAbdomen: soft, normal bowel soundsExtremities: edema, no cyanosis, no edemaNeuro/GREEN PRIZE PACKER: alert, oriented X 3, CNII-XII intactPsychiatry: normal affect, normal judgment/insight ResultsFindings/Data:Laboratory Tests 12/29/20 1205:[Embedded Image Not Available]Laboratory Tests 12/29 12/29 12/29 1205 1205 1136 Chemistry Sodium (134 - 147 mmol/L) 136 Potassium (3.4 - 5.0 mmol/L) 4.2 Chloride (100 - 108 mmol/L) 99 L Carbon Dioxide (21 - 32 mmol/L) 33 H Anion Gap (4.0 - 15.0 GAP calc) 4.0 BUN (7 - 18 MG/DL) 19 H Creatinine (0.6 - 1.0 MG/DL) 0.9 Glomerular Filtr Rate (>60 estGFR) >=60 max estimate Glucose (70 - 110 MG/DL) 156 H POC Glucose (70 - 110 mg/dL) 149 H Hemoglobin A1c (0.0 - 5.7 % A1C) 5.9 H Estim Average Glucose (MG/DLest) 123 Calcium (8.5 - 10.1 MG/DL) 8.1 L Total Bilirubin (0.2 - 1.2 MG/DL) 0.90 AST (15 - 37 Unit/L) 36 ALT (12 - 78 Unit/L) 30 Total Alk Phosphatase (45 - 117 Unit/L) 51 Total Protein (6.4 - 8.2 G/DL) 7.2 Albumin (3.4 - 5.0 G/DL) 2.5 L Globulin (GM/dL) 4.7 Albumin/Globulin Ratio (1.2 - 2.2 RATIO) 0.5 L 12/29 162 Chemistry POC Glucose (70 - 110 mg/dL) 103 169 H 188 H Laboratory Tests 12/29 1205 Hematology WBC (3.5 - 11.0 K/mm3) 10.8 RBC (4.70 - 6.10 M/mm3) 4.77 Hgb (10.4 - 14.9 G/DL) 13.0 Hct (31.5 - 44.1 %) 42.9 MCV (84.5 - 98.6 Fl) 89.9 MCH (27.0 - 34.2 pg) 27.3 MCHC (31.5 - 34.0 G/DL) 30.3 L RDW (11.5 - 14.5 SD) 14.6 H Plt Count (150 - 450 K/mm3) 185 MPV (7.0 - 10.5 fL) 10.20 Add Manual Diff (CRITERIA DIFF/SCN) YES Seg Neutrophils % (40 - 75 %) 68 Band Neutrophils % (0 - 8 %) 22 H Lymphocytes % (Manual) (18.7 - 40.6 %) 6 L Atypical Lymphs % (0 - 0 %) 2 H Monocytes % (Manual) (3.8 - 11.4 %) 2 L Nucleated RBC % (0 - 0 #/100WBC) 1 H Platelet Estimate (ADEQUATE THOUSAND) ADEQUATE Plt Morphology Comment NORMAL Anisocytosis (NONE) NORMAL Diagnosis, Assessment PlanFree Text A P:Assessment 1. Acute hypoxic respiratory failure2. Acute viral pneumonia due to COVID-19 infection3. Sleep apnea Plan Comfortable on 13L/min NCPatient keeps taking her oxygen off, discussed with her to no longer remove her oxygenNeeds to wear her NIPPV QHS and for naps during the dayCTA without pulmonary embolism, does show bilateral patchy infiltrates consistent with COVID-19Remdisivir day 3 of 5S/p convalescent plasmaIncrease dexamethasone to BIDPending legionella antigen sputum cultureInfectious disease on boardEnhanced anticoagulation at 1541 RPT #: [id number] OF REPORT PRProgress Vgox6909-74-76U82:36:00L.GTXC68689042-3050YCMmhsx able for patient oegbVQNWFXESGYOCTX1949-70-00G58:41:42 [facility] 2020-12-29 15:36:00 [id number] S5CyMdv33AqHsA6tEL/pLggOE3uBo nkovEhtFTkabST5yexS4K3fTNJKfvZS85P1453-06-15T25:3 6:00 [facility] ([facility])Pulmonology Progress NoteREPORT#:[id number] REPORT STATUS: SignedDATE:12/29/20 TIME:153 PATIENT: LORI DELUCA UNIT #: [id number]#: [id number] [facility] [birth year] AGE: 55 SEX: F ATTEND: Alfred Escobedo [facility] AUTHOR: Sergio Love * ALL edits or amendments must be made on the electronic/computer document * Sergio Love 12/29/20 1536:SubjectiveChief Complaint:On 13L/min NCReports no dyspnea Review of Systems ROSConstitutional:generalized weakness. Respiratory:Denies: pleuritic pain. Cardiovascular:Denies: chest pain. GI:Denies: abdominal pain. Objective GeneralVS/I O:Last Documented: Result Date Time Pulse Ox 90 12/29 1138 B/P 128/62 12/29 1138 B/P Mean 84.2 12/29 1138 O2 Delivery Nasal cannula 12/29 1138 Temp 38.0 12/29 1138 Pulse 103 12/29 1138 Resp 16 12/29 1138 FiO2 72 12/29 0945 O2 Flow Rate 13 12/29 0945 24 hour I O ending at 0700: 12/29 0700 12/28 1900 Intake Total 266 Output Total Balance 266 Intake, Fresh 216 Frozen Plasma Intake, IV 50 PATIENT WEIGHT: Weight (lb): 400Weight (oz): 2.22Weight (kg): 181.437 Medications:Active Meds + DC'd Last 24 HrsLisinopril 20 MG DAILY PO Sertraline HCl 50 MG DAILY PO Remdesivir 100 MG Q24H IV Sodium Chloride 250 MLDiphenhydramine HCl 25 MG Q4H PRN PRN IV (DC) Dextrose/Water 50 ML ONCE PRN IV (CKD) Remdesivir 100 MG Q24H IV (DCD) Sodium Chloride 250 MLRemdesivir 100 MG Q24H IV (DC) Sodium Chloride 250 MLInsulin Human Lispro S/SCALE AC HS SUBQ Enoxaparin Sodium 180 MG Q12HR SUBQ Sodium Chloride 50 ML Q24H IV (DC) Dexamethasone Sodium Phosphate 6 MG DAILY IV Guaifenesin/Dextromethorphan 10 ML Q4H PRN PRN PO Ceftriaxone Sodium 1,000 MG X1ED STA IV (DC) Sodium Chloride 100 ML Physical ExamHead/eyes: atraumatic, normocephalicENT: ENT: normal nose, normal sinusCardiovascular: normal heart sounds, normal S1/S2, regular rate rhythm, no rub, no gallopAbdomen: soft, normal bowel soundsExtremities: edema, no cyanosis, no edemaNeuro/GRE[employer]IZE PACKER: alert, oriented X 3, CNII-XII intactPsychiatry: normal affect, normal judgment/insight ResultsFindings/Data:Laboratory Tests 12/29/20 1205:[Embedded Image Not Available]Laboratory Tests 12/29 12/29 12/29 1205 1205 1136 Chemistry Sodium (134 - 147 mmol/L) 136 Potassium (3.4 - 5.0 mmol/L) 4.2 Chloride (100 - 108 mmol/L) 99 L Carbon Dioxide (21 - 32 mmol/L) 33 H Anion Gap (4.0 - 15.0 GAP calc) 4.0 BUN (7 - 18 MG/DL) 19 H Creatinine (0.6 - 1.0 MG/DL) 0.9 Glomerular Filtr Rate (>60 estGFR) >=60 max estimate Glucose (70 - 110 MG/DL) 156 H POC Glucose (70 - 110 mg/dL) 149 H Hemoglobin A1c (0.0 - 5.7 % A1C) 5.9 H Estim Average Glucose (MG/DLest) 123 Calcium (8.5 - 10.1 MG/DL) 8.1 L Total Bilirubin (0.2 - 1.2 MG/DL) 0.90 AST (15 - 37 Unit/L) 36 ALT (12 - 78 Unit/L) 30 Total Alk Phosphatase (45 - 117 Unit/L) 51 Total Protein (6.4 - 8.2 G/DL) 7.2 Albumin (3.4 - 5.0 G/DL) 2.5 L Globulin (GM/dL) 4.7 Albumin/Globulin Ratio (1.2 - 2.2 RATIO) 0.5 L 12/29 12/28 12/28 0743 2008 162 Chemistry POC Glucose (70 - 110 mg/dL) 103 169 H 188 H Laboratory Tests 12/29 1205 Hematology WBC (3.5 - 11.0 K/mm3) 10.8 RBC (4.70 - 6.10 M/mm3) 4.77 Hgb (10.4 - 14.9 G/DL) 13.0 Hct (31.5 - 44.1 %) 42.9 MCV (84.5 - 98.6 Fl) 89.9 MCH (27.0 - 34.2 pg) 27.3 MCHC (31.5 - 34.0 G/DL) 30.3 L RDW (11.5 - 14.5 SD) 14.6 H Plt Count (150 - 450 K/mm3) 185 MPV (7.0 - 10.5 fL) 10.20 Add Manual Diff (CRITERIA DIFF/SCN) YES Seg Neutrophils % (40 - 75 %) 68 Band Neutrophils % (0 - 8 %) 22 H Lymphocytes % (Manual) (18.7 - 40.6 %) 6 L Atypical Lymphs % (0 - 0 %) 2 H Monocytes % (Manual) (3.8 - 11.4 %) 2 L Nucleated RBC % (0 - 0 #/100WBC) 1 H Platelet Estimate (ADEQUATE THOUSAND) ADEQUATE Plt Morphology Comment NORMAL Anisocytosis (NONE) NORMAL Diagnosis, Assessment PlanFree Text A P:Assessment 1. Acute hypoxic respiratory failure2. Acute viral pneumonia due to COVID-19 infection3. Sleep apnea Plan Comfortable on 13L/min NCPatient keeps taking her oxygen off, discussed with her to no longer remove her oxygenNeeds to wear her NIPPV QHS and for naps during the dayCTA without pulmonary embolism, does show bilateral patchy infiltrates consistent with COVID-19Remdisivir day 3 of 5S/p convalescent plasmaIncrease dexamethasone to BIDPending legionella antigen sputum cultureInfectious disease on boardEnhanced anticoagulation Daniel Tariq 12/29/201955:Diagnosis, Assessment PlanFree Text A P:evaluated, discussed with RENTAL SALESPERSON . discussed planAgree with above at 1541 RPT #: [id number] OF REPORT PRProgress Fsll6461-23-89T57:36:00L.XZWS88771585-9667ECQhqmd able for patient fvkuLKZIQFSUATWXEF7605-53-39Q68:56:36 [facility] 2020-12-29 15:36:00 [id number] +YCWO1YeBgpZpNYhVaVMZLIA0dGQK 5AkWddG+yIifyptD8BN1kmbWLDLHG0KfUr1577-69-39A83:3 6:00 [facility])Pulmonology Progress NoteREPORT#:[id number] REPORT STATUS: SignedDATE:12/29/20 TIME:153 PATIENT: LORI DELUCA UNIT #: [id number]#: [id number] [address] AGE: 55 SEX: F ATTEND: Alfred Escobedo [facility] AUTHOR: Sergio Love * ALL edits or amendments must be made on the electronic/computer document * Sergio Love 12/29/20 1536:SubjectiveChief Complaint:On 13L/min NCReports no dyspnea Review of Systems ROSConstitutional:generalized weakness. Respiratory:Denies: pleuritic pain. Cardiovascular:Denies: chest pain. GI:Denies: abdominal pain. Objective GeneralVS/I O:Last Documented: Result Date Time Pulse Ox 90 12/29 1138 B/P 128/62 12/29 1138 B/P Mean 84.2 12/29 1138 O2 Delivery Nasal cannula 12/29 1138 Temp 38.0 12/29 1138 Pulse 103 12/29 1138 Resp 16 12/29 1138 FiO2 72 12/29 0945 O2 Flow Rate 13 12/29 0945 24 hour I O ending at 0700: 12/29 0700 12/28 1900 Intake Total 266 Output Total Balance 266 Intake, Fresh 216 Frozen Plasma Intake, IV 50 PATIENT WEIGHT: Weight (lb): 400Weight (oz): 2.22Weight (kg): 181.437 Medications:Active Meds + DC'd Last 24 HrsLisinopril 20 MG DAILY PO Sertraline HCl 50 MG DAILY PO Remdesivir 100 MG Q24H IV Sodium Chloride 250 MLDiphenhydramine HCl 25 MG Q4H PRN PRN IV (DC) Dextrose/Water 50 ML ONCE PRN IV (CKD) Remdesivir 100 MG Q24H IV (DCD) Sodium Chloride 250 MLRemdesivir 100 MG Q24H IV (DC) Sodium Chloride 250 MLInsulin Human Lispro S/SCALE AC HS SUBQ Enoxaparin Sodium 180 MG Q12HR SUBQ Sodium Chloride 50 ML Q24H IV (DC) Dexamethasone Sodium Phosphate 6 MG DAILY IV Guaifenesin/Dextromethorphan 10 ML Q4H PRN PRN PO Ceftriaxone Sodium 1,000 MG X1ED STA IV (DC) Sodium Chloride 100 ML Physical ExamHead/eyes: atraumatic, normocephalicENT: ENT: normal nose, normal sinusCardiovascular: normal heart sounds, normal S1/S2, regular rate rhythm, no rub, no gallopAbdomen: soft, normal bowel soundsExtremities: edema, no cyanosis, no edemaNeuro/GREEN PRIZE PACKER: alert, oriented X 3, CNII-XII intactPsychiatry: normal affect, normal judgment/insight ResultsFindings/Data:Laboratory Tests 12/29/20 1205:[Embedded Image Not Available]Laboratory Tests 12/29 12/29 12/29 1205 1205 1136 Chemistry Sodium (134 - 147 mmol/L) 136 Potassium (3.4 - 5.0 mmol/L) 4.2 Chloride (100 - 108 mmol/L) 99 L Carbon Dioxide (21 - 32 mmol/L) 33 H Anion Gap (4.0 - 15.0 GAP calc) 4.0 BUN (7 - 18 MG/DL) 19 H Creatinine (0.6 - 1.0 MG/DL) 0.9 Glomerular Filtr Rate (>60 estGFR) >=60 max estimate Glucose (70 - 110 MG/DL) 156 H POC Glucose (70 - 110 mg/dL) 149 H Hemoglobin A1c (0.0 - 5.7 % A1C) 5.9 H Estim Average Glucose (MG/DLest) 123 Calcium (8.5 - 10.1 MG/DL) 8.1 L Total Bilirubin (0.2 - 1.2 MG/DL) 0.90 AST (15 - 37 Unit/L) 36 ALT (12 - 78 Unit/L) 30 Total Alk Phosphatase (45 - 117 Unit/L) 51 Total Protein (6.4 - 8.2 G/DL) 7.2 Albumin (3.4 - 5.0 G/DL) 2.5 L Globulin (GM/dL) 4.7 Albumin/Globulin Ratio (1.2 - 2.2 RATIO) 0.5 L 12/2943 2008 1627 Chemistry POC Glucose (70 - 110 mg/dL) 103 169 H 188 H Laboratory Tests 12/29 1205 Hematology WBC (3.5 - 11.0 K/mm3) 10.8 RBC (4.70 - 6.10 M/mm3) 4.77 Hgb (10.4 - 14.9 G/DL) 13.0 Hct (31.5 - 44.1 %) 42.9 MCV (84.5 - 98.6 Fl) 89.9 MCH (27.0 - 34.2 pg) 27.3 MCHC (31.5 - 34.0 G/DL) 30.3 L RDW (11.5 - 14.5 SD) 14.6 H Plt Count (150 - 450 K/mm3) 185 MPV (7.0 - 10.5 fL) 10.20 Add Manual Diff (CRITERIA DIFF/SCN) YES Seg Neutrophils % (40 - 75 %) 68 Band Neutrophils % (0 - 8 %) 22 H Lymphocytes % (Manual) (18.7 - 40.6 %) 6 L Atypical Lymphs % (0 - 0 %) 2 H Monocytes % (Manual) (3.8 - 11.4 %) 2 L Nucleated RBC % (0 - 0 #/100WBC) 1 H Platelet Estimate (ADEQUATE THOUSAND) ADEQUATE Plt Morphology Comment NORMAL Anisocytosis (NONE) NORMAL Diagnosis, Assessment PlanFree Text A P:Assessment 1. Acute hypoxic respiratory failure2. Acute viral pneumonia due to COVID-19 infection3. Sleep apnea Plan Comfortable on 13L/min NCPatient keeps taking her oxygen off, discussed with her to no longer remove her oxygenNeeds to wear her NIPPV QHS and for naps during the dayCTA without pulmonary embolism, does show bilateral patchy infiltrates consistent with COVID-19Remdisivir day 3 of 5S/p convalescent plasmaIncrease dexamethasone to BIDPending legionella antigen sputum cultureInfectious disease on boardEnhanced anticoagulation Daniel Tariq 12/29/201955:Diagnosis, Assessment PlanFree Text A P:evaluated, discussed with RENTAL SALESPERSON . discussed planAgree with above at 1541 at 1956 RPT #: [id number] OF REPORT PRProgress Esfb6586-63-69H44:36:00L.MBVK48239934-6298MOHnzrz able for patient akrpWYQVPNUTBOJSMV8427-91-69C50:56:36 [facility] 2020-12-29 11:31:00 [id number] Mhq/Xet+uzroVrsHkOD5nDgZM3J7K znv/lM1fx+OHgENXkLhinE+WiHVX9gfC3N8398-97-31R47:3 1:00 [facility] ([facility])Infectious Dis. Progress NoteREPORT#:[id number] REPORT STATUS: SignedDATE:12/29/20 TIME:1131 PATIENT: LORI DELUCA UNIT #: [id number]#: [id number] [address] [birth year] AGE: 55 SEX: F ATTEND: Alfred Escobedo MDA AUTHOR: Andrew Aguilar MD * ALL edits or amendments must be made on the electronic/computer document * SubjectiveChief Complaint:PneumoniaHPI:She has been on 13L O2. Pt sometimes removes her nasal cannula. Review of SystemsConstitutional:Reports: fever. Objective GeneralVS/I O:Last Documented: Result Date Time Pulse Ox 96 12/29 0945 FiO2 72 12/29 0945 O2 Delivery High flow nasal cannula 12/29 0945 O2 Flow Rate 13 12/29 0945 B/P 141/56 12/29 0744 B/P Mean 84.3 12/29 0744 Temp 36.6 12/29 0744 Pulse 101 12/29 0744 Resp 18 12/29 0744 Vital SignsDate Temp Pulse Resp B/P B/P Mean Pulse Ox XrL252/-12/29 36.5-38.8 76-107 14-20 108-141/56-8 84.3-100.1 91-99 50-72 5 24 hour I O ending at 0700: 12/29 0700 12/28 1900 Intake Total 266 Output Total Balance 266 Intake, Fresh 216 Frozen Plasma Intake, IV 50 PATIENT WEIGHT: Weight (lb): 400Weight (oz): 2.22Weight (kg): 181.500 Physical ExamGeneral appearance: obese, awakeHead/Eyes: atraumatic, clear cornea, EOMI, normal conjunctiva/sclera, normal eyelids/periorb, normocephalicCardiovascular: regular rate rhythmRespiratory: on oxygen, symmetric expansionAbdomen: non-tender, normal bowel sounds, soft, no CVA tenderness, no distention, no guarding, no mass/organomegaly, no reboundExtremities: normal temperature, no contracture, no cyanosisMusculoskeletal: no joint swellingSkin: normal color, normal turgor, no rashPsychiatry: normal affect, normal judgment/insight, normal mood Diagnosis, Assessment PlanFree Text A P:Labs:WBC normal /12Creatinine slight high /12ALT normal 12 Imaging:CTA no PE, there were bilateral infiltrates 12/27 Assessment:1. Pneumonia with covid-19 s/p CV plasma.2. Acute respiratory failure with hypoxia.3. Morbid obesity. Plan:1. Continue remdesivir (day 3 of 5).2. Steroids.3. Monitor inflammatory markers.4. Low threshold to start antibiotics. at 1433 [facility] #: [id number] OF REPORT PRProgress Hjdr4901-67-48D59:31:00L.ONIB25574843-8447JHNavgf able for patient rhlrTZPKKACNESGLDZ6010-61-22K58:33:50 [facility] 2020-12-29 09:24:00 ETxlckzptlf54667924w /5bsNIfPglYj6K/+WKkBb7oPgbvW9 M2EtgZkPBej9VOIHlLEmb04Z3HhMh9/M6P3916-19-94I36:2 4:00 [facility])Hospitalist Progress NoteREPORT#:[id number] REPORT STATUS: SignedDATE:12/29/20 TIME:923 PATIENT: LORI DELUCA UNIT #: [id number]#: [id number] [address] [birth year] AGE: 55 SEX: F ATTEND: Alfred Escobedo MDA AUTHOR: Ever Rey RENTAL SALESPERSON * ALL edits or amendments must be made on the electronic/computer document * Ever Rey 12/29/20 0924:SubjectiveChief Complaint:stable. keep taking her oxygen offPatient reports:No: complaints. Nursing reports:No: complaints. Objective GeneralVS/I O:Vital Signs: Date Time Temp Pulse Resp B/P B/P Pulse O2 O2 Flow FiO2 Mean Ox Delivery Rate 12/29 1138 38.0 103 16 128/62 84.2 90 Nasal cannula 12/29 0945 96 High flow 13 72 nasal cannula 12/29 0852 High flow 13 nasal cannula 12/29 0744 36.6 101 18 141/56 84.3 93 High flow nasal cannula 12/29 0510 37.5 107 20 138/75 95.8 95 Nasal 13 cannula 12/29 0502 37.5 107 20 138/75 95 12/29 0421 38.6 105 20 135/80 98.0 94 Nasal 13 cannula 12/29 0358 38.8 107 20 137/82 100.1 91 Nasal 13 cannula 12/29 0353 38.8 107 20 137/82 94 12/29 0330 37.9 88 20 141/68 93 12/29 0000 37.0 94 14 130/85 100.0 92 High flow 13 nasal cannula 12/28 2247 94 High flow 13 nasal cannula 12/28 2200 90 97 50 12/28 2010 36.8 94 14 125/72 89.9 92 High flow 13 nasal cannula 12/29 1999 High flow 13 nasal cannula 12/28 1516 36.9 94 16 108/74 85.4 99 High flow nasal cannula 24 hour I O ending at 0700: 12/29 0700 12/28 1900 Intake Total 266 Output Total Balance 266 Intake, Fresh 216 Frozen Plasma Intake, IV 50 PATIENT WEIGHT: Weight (lb): 400Weight (oz): 2.22Weight (kg): 181.500 Physical ExamGeneral appearance: awakeHead/Eyes: atraumatic, normocephalic, PERRLAENT: normal nose, normal pharynxNeck: non-tender, no JVDCardiovascular: regular rate rhythm, no murmur, no rub, no thrillRespiratory: decreased breath sounds, hypoxiaAbdomen: non-tender, normal bowel sounds, soft, no distention, no guardingExtremities: moves all, no edemaNeuro/GREEN PRIZE PACKER: alert, oriented X 3, normal speech, no motor deficits, no sensory deficitsPsychiatry: normal affect ResultsFindings/Data:Laboratory Tests 12/29 12/29 12/29 12/28 1205 1136 0728 2009Chemistry Sodium (134 - 147 mmol/L) 136 Potassium (3.4 - 5.0 mmol/L) 4.2 Chloride (100 - 108 mmol/L) 99 L Carbon Dioxide (21 - 32 mmol/L) 33 H Anion Gap (4.0 - 15.0 GAP calc) 4.0 BUN (7 - 18 MG/DL) 19 H Creatinine (0.6 - 1.0 MG/DL) 0.9 Glomerular Filtr Rate (>60 estGFR) >=60 max estimate Glucose (70 - 110 MG/DL) 156 H POC Glucose (70 - 110 mg/dL) 149 H 103 169 H Calcium (8.5 - 10.1 MG/DL) 8.1 L Total Bilirubin (0.2 - 1.2 MG/DL) 0.90 AST (15 - 37 Unit/L) 36 ALT (12 - 78 Unit/L) 30 Total Alk Phosphatase (45 - 117 51Unit/L) Total Protein (6.4 - 8.2 G/DL) 7.2 Albumin (3.4 - 5.0 G/DL) 2.5 L Globulin (GM/dL) 4.7 Albumin/Globulin Ratio (1.2 - 2.2 0.5 LRATIO) 12/28 1627 Chemistry POC Glucose (70 - 110 mg/dL) 188 H Laboratory Tests 12/29 1205 Hematology WBC (3.5 - 11.0 K/mm3) 10.8 RBC (4.70 - 6.10 M/mm3) 4.77 Hgb (10.4 - 14.9 G/DL) 13.0 Hct (31.5 - 44.1 %) 42.9 MCV (84.5 - 98.6 Fl) 89.9 MCH (27.0 - 34.2 pg) 27.3 MCHC (31.5 - 34.0 G/DL) 30.3 L RDW (11.5 - 14.5 SD) 14.6 H Plt Count (150 - 450 K/mm3) 185 MPV (7.0 - 10.5 fL) 10.20 Add Manual Diff (CRITERIA DIFF/SCN) YES Seg Neutrophils % (40 - 75 %) 68 Band Neutrophils % (0 - 8 %) 22 H Lymphocytes % (Manual) (18.7 - 40.6 %) 6 L Atypical Lymphs % (0 - 0 %) 2 H Monocytes % (Manual) (3.8 - 11.4 %) 2 L Nucleated RBC % (0 - 0 #/100WBC) 1 H Platelet Estimate (ADEQUATE THOUSAND) ADEQUATE Plt Morphology Comment NORMAL Anisocytosis (NONE) NORMAL Results: vital signs stable, current med profile rev'd Diagnosis, Assessment Plan Free Text DxA P NotesFree text DxA P notes: Acute hypoxic respiratory failure with COVID-19 pneumoniaWe will admit the patient Start the patient on steroidsWe will hold off on antibiotics as patient is afebrile white count is normal we will try to get CT scan of the chest to see if there are some infiltrates or not.We will get CT of the chest to assess the infiltrates As D-dimer is elevated and troponins are elevated will continue with therapeuticanticoagulationSymptomatic managementWe will ask infectious disease and pulmonary to evaluate Started the patient on remdesivirContinue supplemental oxygen to keep O2 sat above 90% and monitor respiratory status closelyProning NSTEMIPossibly type II in the setting of COVID-19 pneumonia with hypoxia. We will continue to trend troponins. Keep the patient on aspirin statin. We will get an echocardiogram. Monitor on telemetry. HypertensionResume lisinopril monitor blood pressure keep on as needed hydralazine PrediabetesNow that the patient will be on steroids we will keep on insulin sliding scale monitor blood sugars keep on diabetic diet COPDDoes not appear to be in COPD exacerbation will be on steroids supplemental oxygen. Monitor respiratory status closely. Pulmonary on board. DVT GI prophylaxisPatient is full codePatient was explained the plan in detail all medication effect side effects werediscussed all was well associated with the planNext of kin sister Madelyn ferguson [phone] 1Covid 19 PneumoniaCOPDHTNDMMorbid Obesity Plan------Continue on remdesevir-Continue COVID treatment protocol ( steroids, vit c/d/zinc)-Prone positioning as tolerated-Monitor inflammatory markers-Hiflow oxygen prn -Pulm and ID following-Accuchecks with ISS-Diabetic diet-Ensure tight glucose control-Resume home meds for BP zrishmm-Dvlvo-bowzti completion of therapy and clinical improvement 12/29/2020- acute respiratory failure secondary to covid. 13LNC high flow oxygen, wean as tolerated, cont steriod/remdesivir. PUl following- Covid 19 Pneumonia. ID following- COPD, neb tx- HTN; cont home med- DM; SSI- Morbid Obesity; lifestyle modification- Depression. zoloft- Debility. PT to mobilizeDVT/PPX- lovenoxplan. cont remdesivir/wean oxygen at 1250 at 1524 RPT #: [id number] OF REPORT PRProgress Joua9579-00-71R22:24:00L.[id number] able for patient lncnOWSNMCCMFSIFMX0135-01-37X00:24:58 [facility] 2020-12-29 09:24:00 [id number] IF7mmtrQb8CGo6jh+wO80xlXruvwx JhfATf9DFODi+RSx2n0hw4YLLZM+kmRLj/5653-53-35A70:2 4:00 [facility])Hospitalist Progress NoteREPORT#:[id number] REPORT STATUS: SignedDATE:12/29/20 TIME:923 PATIENT: LORI DELUCA UNIT #: [id number]#: [id number] [address] [birth year] AGE: 55 SEX: F ATTEND: Alfred Escobedo [facility] AUTHOR: Ever Rey RENTAL SALESPERSON * ALL edits or amendments must be made on the electronic/computer document * SubjectiveChief Complaint:stable. keep taking her oxygen offPatient reports:No: complaints. Nursing reports:No: complaints. Objective GeneralVS/I O:Vital Signs: Date Time Temp Pulse Resp B/P B/P Pulse O2 O2 Flow FiO2 Mean Ox Delivery Rate 12/29 1138 38.0 103 16 128/62 84.2 90 Nasal cannula 12/29 0945 96 High flow 13 72 nasal cannula 12/29 0852 High flow 13 nasal cannula 12/29 0744 36.6 101 18 141/56 84.3 93 High flow nasal cannula 12/29 0510 37.5 107 20 138/75 95.8 95 Nasal 13 cannula 12/29 0502 37.5 107 20 138/75 95 12/29 0421 38.6 105 20 135/80 98.0 94 Nasal 13 cannula 12/29 0358 38.8 107 20 137/82 100.1 91 Nasal 13 cannula 12/29 0353 38.8 107 20 137/82 94 12/29 0330 37.9 88 20 141/68 93 12/29 0000 37.0 94 14 130/85 100.0 92 High flow 13 nasal cannula 12/28 2247 94 High flow 13 nasal cannula 12/28 2200 90 97 50 12/28 2010 36.8 94 14 125/72 89.9 92 High flow 13 nasal cannula 12/29 1999 High flow 13 nasal cannula 12/28 1516 36.9 94 16 108/74 85.4 99 High flow nasal cannula 24 hour I O ending at 0700: 12/29 0700 12/28 1900 Intake Total 266 Output Total Balance 266 Intake, Fresh 216 Frozen Plasma Intake, IV 50 PATIENT WEIGHT: Weight (lb): 400Weight (oz): 2.22Weight (kg): 181.500 Physical ExamGeneral appearance: awakeHead/Eyes: atraumatic, normocephalic, PERRLAENT: normal nose, normal pharynxNeck: non-tender, no JVDCardiovascular: regular rate rhythm, no murmur, no rub, no thrillRespiratory: decreased breath sounds, hypoxiaAbdomen: non-tender, normal bowel sounds, soft, no distention, no guardingExtremities: moves all, no edemaNeuro/GREEN PRIZE PACKER: alert, oriented X 3, normal speech, no motor deficits, no sensory deficitsPsychiatry: normal affect ResultsFindings/Data:Laboratory Tests 12/29 12/29 12/29 12/28 1205 1136 0742 2009Chemistry Sodium (134 - 147 mmol/L) 136 Potassium (3.4 - 5.0 mmol/L) 4.2 Chloride (100 - 108 mmol/L) 99 L Carbon Dioxide (21 - 32 mmol/L) 33 H Anion Gap (4.0 - 15.0 GAP calc) 4.0 BUN (7 - 18 MG/DL) 19 H Creatinine (0.6 - 1.0 MG/DL) 0.9 Glomerular Filtr Rate (>60 estGFR) >=60 max estimate Glucose (70 - 110 MG/DL) 156 H POC Glucose (70 - 110 mg/dL) 149 H 103 169 H Calcium (8.5 - 10.1 MG/DL) 8.1 L Total Bilirubin (0.2 - 1.2 MG/DL) 0.90 AST (15 - 37 Unit/L) 36 ALT (12 - 78 Unit/L) 30 Total Alk Phosphatase (45 - 117 51Unit/L) Total Protein (6.4 - 8.2 G/DL) 7.2 Albumin (3.4 - 5.0 G/DL) 2.5 L Globulin (GM/dL) 4.7 Albumin/Globulin Ratio (1.2 - 2.2 0.5 LRATIO) 12/28 1627 Chemistry POC Glucose (70 - 110 mg/dL) 188 H Laboratory Tests 12/29 1205 Hematology WBC (3.5 - 11.0 K/mm3) 10.8 RBC (4.70 - 6.10 M/mm3) 4.77 Hgb (10.4 - 14.9 G/DL) 13.0 Hct (31.5 - 44.1 %) 42.9 MCV (84.5 - 98.6 Fl) 89.9 MCH (27.0 - 34.2 pg) 27.3 MCHC (31.5 - 34.0 G/DL) 30.3 L RDW (11.5 - 14.5 SD) 14.6 H Plt Count (150 - 450 K/mm3) 185 MPV (7.0 - 10.5 fL) 10.20 Add Manual Diff (CRITERIA DIFF/SCN) YES Seg Neutrophils % (40 - 75 %) 68 Band Neutrophils % (0 - 8 %) 22 H Lymphocytes % (Manual) (18.7 - 40.6 %) 6 L Atypical Lymphs % (0 - 0 %) 2 H Monocytes % (Manual) (3.8 - 11.4 %) 2 L Nucleated RBC % (0 - 0 #/100WBC) 1 H Platelet Estimate (ADEQUATE THOUSAND) ADEQUATE Plt Morphology Comment NORMAL Anisocytosis (NONE) NORMAL Results: vital signs stable, current med profile rev'd Diagnosis, Assessment Plan Free Text DxA P NotesFree text DxA P notes: Acute hypoxic respiratory failure with COVID-19 pneumoniaWe will admit the patient Start the patient on steroidsWe will hold off on antibiotics as patient is afebrile white count is normal we will try to get CT scan of the chest to see if there are some infiltrates or not.We will get CT of the chest to assess the infiltrates As D-dimer is elevated and troponins are elevated will continue with therapeuticanticoagulationSymptomatic managementWe will ask infectious disease and pulmonary to evaluate Started the patient on remdesivirContinue supplemental oxygen to keep O2 sat above 90% and monitor respiratory status closelyProning NSTEMIPossibly type II in the setting of COVID-19 pneumonia with hypoxia. We will continue to trend troponins. Keep the patient on aspirin statin. We will get an echocardiogram. Monitor on telemetry. HypertensionResume lisinopril monitor blood pressure keep on as needed hydralazine PrediabetesNow that the patient will be on steroids we will keep on insulin sliding scale monitor blood sugars keep on diabetic diet COPDDoes not appear to be in COPD exacerbation will be on steroids supplemental oxygen. Monitor respiratory status closely. Pulmonary on board. DVT GI prophylaxisPatient is full codePatient was explained the plan in detail all medication effect side effects werediscussed all was well associated with the planNext of kin sister Madelyn ferguson [phone] 1Covid 19 PneumoniaCOPDHTNDMMorbid Obesity Plan------Continue on remdesevir-Continue COVID treatment protocol ( steroids, vit c/d/zinc)-Prone positioning as tolerated-Monitor inflammatory markers-Hiflow oxygen prn -Pulm and ID following-Accuchecks with ISS-Diabetic diet-Ensure tight glucose control-Resume home meds for BP scefnky-Llgiq-yotatr completion of therapy and clinical improvement 12/29/2020- acute respiratory failure secondary to covid. 13LNC high flow oxygen, wean as tolerated, cont steriod/remdesivir. PUl following- Covid 19 Pneumonia. ID following- COPD, neb tx- HTN; cont home med- DM; SSI- Morbid Obesity; lifestyle modification- Depression. zoloft- Debility. PT to mobilizeDVT/PPX- lovenoxplan. cont remdesivir/wean oxygen at 1250 RPT #: [id number] OF REPORT PRProgress Lkss5579-43-57A23:24:00L.IKQE93653644-6091CCSsaey able for patient hiazGLQWIJKAAVQSWK2714-96-80C69:50:47 [facility] 2020-12-28 17:41:00 SEaghtbfbmc14521979J eD0xC5PLDrV3Rj5sHyfiSEa9Nj66J mV6IiohgL2zeYjOdh4IaQnO1SNoAhU2wf/0198-12-42L56:4 1:00 [facility] ([facility])Pulmonary Consultation NoteREPORT#:[id number] REPORT STATUS: SignedDATE:12/28/20 TIME:1741 PATIENT: LORI DELUCA UNIT #: [id number]#: [id number] [address] [birth year] AGE: 55 SEX: F ATTEND: Alfred Escobedo MDADM AUTHOR: Daniel Tariq MD * ALL edits or amendments must be made on the electronic/computer document * History of Present Illness Free Text HPI NotesFree Text HPI Notes:55-year-old lady who was transferred from [facility] ER for acute hypoxic respiratory failure with Covid 19. Patient is morbidly obese , sleep apneaNot on CPAP She started having fevers in the past 5 days and feeling weak. She then developed progressive SOB. In the ER she was found to be Covid positive and was hypoxic Pt did not take the Covid vaccine Pt was placed on nonrebreather. CXR showed bilateral infiltrates consistent with COVID Patient is sleepy History - Adult longitudinalAdditional medical history:Hypertension Prediabetes COPD Morbid obesity ArthritisAdditional surgical history:Asked and is negativeAdditional family history:Asked and is negativeAlcohol use: Denies EtOH useDrug use: Denies recreational drugsSmoking status: Smoking status for patients 13 years old or older: Never SmokerAllergies:Coded Allergies:acetaminophen (Intermediate, HIVES 12/27/20)codeine (Intermediate, ITCHING 12/27/20)morphine (Intermediate, HIVES 12/27/20)tramadol (Intermediate, HIVES 12/27/20) Objective Physical ExamVitals:Last Documented: Result Date Time Pulse Ox 99 12/28 1516 B/P 108/74 12/28 1516 B/P Mean 85.4 12/28 1516 O2 Delivery High flow nasal cannula 12/28 1516 Temp 36.9 12/28 1516 Pulse 94 12/28 1516 Resp 16 12/28 1516 O2 Flow Rate 13 12/28 1134 FiO2 76 12/28 0728 Head/eyes: atraumatic, normocephalicENT: ENT: normal nose, normal sinusAbdomen: soft, normal bowel soundsExtremities: edema, no cyanosis, no edemaNeuro/GREEN PRIZE PACKER: alert, oriented X 3, CNII-XII intactPsychiatry: normal affect, normal judgment/insight ResultsFindings/Data:Laboratory Tests 12/28 1907 Blood Gas Puncture Site (DESCRIPTION ARTKIT) Left Radial ABG pH (7.35 - 7.45 pH units) 7.39 ABG pCO2 (35 - 45 mmHg) 45 ABG pO2 (80 - 100 mmHg) 65 L ABG PO2/FiO2 Ratio (200 mm/Hg) 216.7 ABG HCO3 (22.0 - 26.0 mmol/L) 26.8 H ABG O2 Saturation (90 - 100 %) 93 ABG Base Excess (-3.0 - 3.0 mmol/L) 1.4 Tosha Test (POSITIVE Circ.CHK) Yes Vent Mode (Vent Mode Descript) Nasal Cannula FiO2 (21 - 100 % (calc)) 30 Laboratory Tests 12/28 12/28 12/28 12/27 1627 1121 0705 2336 Chemistry POC Glucose (70 - 110 mg/dL) 188 H 147 H 184 H 172 H Laboratory Tests 12/28 1000 Coagulation PTT (Judi) (26 - 35 SECONDS) 38.1 H Laboratory Tests 12/27 1914 Urines Urine HCG, Qual (NEGATIVE) NEGATIVE Radiology Data:Recent Impressions:CAT SCAN - CTA CHEST FOR PE 12/27 1954 Report Impression - Status: SIGNED Entered: 12/27/20202025 IMPRESSION: No pulmonary embolus is identified.Patchy parenchymal opacities throughout both lungs consistent withmultifocal pneumonia. LOCATION: B2 This CT exam was performed according to our departmental doseoptimization program, which includes automated exposure control,adjustment of the mA and or kV according to patient size and/or use ofiterative reconstruction technique.Impression By: Juarez - Janis Rendon M.D. Diagnosis, Assessment Plan Free Text DxA P NotesFree Text DxA P Notes:1. Acute hypoxic respiratory failure2. Acute viral pneumonia due to COVID-19 infection3, sleep apnea Patient was seen and examined at bedsideEvaluated lab work-up and imaging studiesStart RemdisivirFollow-up imaging studies and inflammatory panel along with oxygen requirement and symptomatic improvement or worseningdexamethasone as per recovery trial 6 mg dailyInfectious disease on boardEnhanced anticoagulation Thank you for the consult and will follow up with you at 1744 RPT #: [id number] OF REPORT NNWapgcnoltrfb8720-08-32C96:41:00L.[id number] 163AVAvailable for patient osuqONQJHTBGKUCBJC2030-61-36R55:45:24 [facility] 2020-12-28 11:51:00 [id number] jxVREugWAnE5El+TOHYrldYi9mIzk STztgQhofzsNcpTQ9dhgF+BY9pNmL3OHVl5922-24-86E53:5 1:00 [facility]Hospitalist Progress NoteREPORT#:[id number] REPORT STATUS: SignedDATE:12/28/20 TIME:1151 PATIENT: LORI DELUCA UNIT #: [id number]#: [id number] [address] [birth year] AGE: 55 SEX: F ATTEND: Alfred Escobedo [facility] AUTHOR: Madison Lange I TRACE EVIDENCE TECHNICIAN * ALL edits or amendments must be made on the electronic/computer document * Madison Lange I 12/28/20 1151:SubjectiveHPI:on non rebreather, appears unable to tolerate much. Takes on /off. Dyspneic withtalking Objective GeneralVS/I O:Vital Signs: Date Time Temp Pulse Resp B/P B/P Pulse O2 O2 Flow FiO2 Mean Ox Delivery Rate 12/28 1134 36.5 76 16 128/83 98.2 99 High flow 13 nasal cannula 12/28 0758 Non 15 rebreather mask 12/28 0728 95 Non 14 76 rebreather mask 12/28 0718 36.6 85 16 114/74 87.4 94 Non 15 rebreather mask 12/28 0412 37.0 92 16 136/89 105.0 96 12/28 0023 90 High flow 10 nasal cannula 12/28 0005 36.5 91 20 120/78 92.4 95 12/27 2331 37.0 92 18 131/81 97.6 96 12/27 2224 Nasal 6 cannula 12/27 2216 37.2 91 18 110/72 84.9 97 12/28 2007 79 16 132/68 89 99 Nasal 6 cannula 12/27 1900 96 High flow 20 30 nasal cannula 12/27 1726 36.9 85 22 127/72 90 95 Nasal 5 cannula 24 hour I O ending at 0700: 12/28 0700 12/27 1900 Intake Total 950.00 Output Total 400 Balance 550.00 Intake, IV 450.00 Intake, Oral 500 Output, Urine 400 Patient 181.5 kg 183.1 kg Weight Weight Bed scale Bed scale Measurement Method PATIENT WEIGHT: Weight (lb): 400Weight (oz): 2.22Weight (kg): 181.500 Physical ExamGeneral appearance: obese (morbidly), alert, awake, orientedHead/Eyes: atraumatic, normocephalic, PERRLAENT: normal nose, normal pharynxNeck: non-tender, no JVDCardiovascular: regular rate rhythm, no murmur, no rub, no thrillRespiratory: crackles, hypoxiaAbdomen: non-tender, normal bowel sounds, soft, no distention, no guardingExtremities: moves all, no edemaNeuro/GREEN PRIZE PACKER: alert, oriented X 3, normal speech, no motor deficits, no sensory deficitsPsychiatry: normal affect ResultsFindings/Data:Laboratory Tests 12/28 1907 Blood Gas Puncture Site (DESCRIPTION ARTKIT) Left Radial ABG pH (7.35 - 7.45 pH units) 7.39 ABG pCO2 (35 - 45 mmHg) 45 ABG pO2 (80 - 100 mmHg) 65 L ABG PO2/FiO2 Ratio (200 mm/Hg) 216.7 ABG HCO3 (22.0 - 26.0 mmol/L) 26.8 H ABG O2 Saturation (90 - 100 %) 93 ABG Base Excess (-3.0 - 3.0 mmol/L) 1.4 Tosha Test (POSITIVE Circ.CHK) Yes Vent Mode (Vent Mode Descript) Nasal Cannula FiO2 (21 - 100 % (calc)) 30 Laboratory Tests 12/28 12/28 12/27 12/27 12/27 1121 0705 2336 1742 1742 Chemistry POC Glucose (70 - 110 mg/dL) 147 H 184 H 172 H Lactic Acid (0.4 - 2.0 mmol/L) 1.6 Troponin I (0.000 - 0.045 NG/ML) 0.039 12/27 12/27 12/27 1742 1742 1742 Chemistry Sodium (134 - 147 mmol/L) 134 Potassium (3.4 - 5.0 mmol/L) 4.0 Chloride (100 - 108 mmol/L) 97 L Carbon Dioxide (21 - 32 mmol/L) 29 Anion Gap (4.0 - 15.0 GAP calc) 8.0 BUN (7 - 18 MG/DL) 22 H Creatinine (0.6 - 1.0 MG/DL) 1.1 H Glomerular Filtr Rate (>60 estGFR) 55 L Glucose (70 - 110 MG/DL) 151 H Calcium (8.5 - 10.1 MG/DL) 8.8 Total Bilirubin (0.2 - 1.2 MG/DL) 1.20 Direct Bilirubin (0.00 - 0.30 MG/DL) 0.50 H Indirect Bilirubin (0.2 - 1.2 MG/DL) 0.70 AST (15 - 37 Unit/L) 56 H ALT (12 - 78 Unit/L) 40 Total Alk Phosphatase (45 - 117 Unit/L) 71 C-Reactive Protein (0.000 - 0.3 MG/DL) 17.000 H Total Protein (6.4 - 8.2 G/DL) 8.5 H Albumin (3.4 - 5.0 G/DL) 3.1 L Laboratory Tests 12/28 12/27 1000 1742 Coagulation INR (0.8 - 1.2 INR Unit) 1.30 H PTT (Piatt) (26 - 35 SECONDS) 38.1 H >400 *H PT Patient/Control Mix (9.3 - 12.9 SECONDS) 14.6 H Laboratory Tests 12/27 1742 Hematology WBC (3.5 - 11.0 K/mm3) 10.3 RBC (4.70 - 6.10 M/mm3) 5.70 Hgb (10.4 - 14.9 G/DL) 15.4 H Hct (31.5 - 44.1 %) 49.6 H MCV (84.5 - 98.6 Fl) 87.0 MCH (27.0 - 34.2 pg) 27.0 MCHC (31.5 - 34.0 G/DL) 31.0 L RDW (11.5 - 14.5 SD) 14.8 H Plt Count (150 - 450 K/mm3) 191 MPV (7.0 - 10.5 fL) 10.50 Neut % (Auto) (40 - 76 %) 85.6 H Lymph % (Auto) (20.5 - 51.1 %) 9.1 L Han[place] % (Auto) (1.7 - 9.3 %) 3.2 Eos % (Auto) (0.0 - 6.0 %) 0.1 Baso % (Auto) (0.0 - 2.0 %) 0.3 Neut # (Auto) (1.8 - 7.6 K/mm3) 8.8 H Lymph # (Auto) (0.6 - 3.2 K/mm3) 0.9 [place] # (Auto) (0.3 - 1.1 K/mm3) 0.3 Eos # (Auto) (0.0 - 0.4 K/mm3) 0.0 Baso # (Auto) (0.0 - 0.1 K/mm3) 0.0 Abs Immat Gran (auto) (0.00 - 0.03 x10 3/uL) 0.17 H Add Manual Diff (CRITERIA DIFF/SCN) NO Immature Gran % (0.0 - 5.0 %) 1.7 Nucleated RBC % (0.0 - 1.0 /100WBC%) 0.3 Laboratory Tests 12/27 1913 Urines Urine HCG, Qual (NEGATIVE) NEGATIVE Radiology data:Recent Impressions:CAT SCAN - CTA CHEST FOR PE 12/27 1954 Report Impression - Status: SIGNED Entered: 12/27/20202025 IMPRESSION: No pulmonary embolus is identified.Patchy parenchymal opacities throughout both lungs consistent withmultifocal pneumonia. LOCATION: B2 This CT exam was performed according to our departmental doseoptimization program, which includes automated exposure control,adjustment of the mA and or kV according to patient size and/or use ofiterative reconstruction technique.Impression By: Juarez - Janis Rendon M.D. Diagnosis, Assessment Plan Free Text DxA P NotesFree text DxA P notes: Acute hypoxic respiratory failure with COVID-19 pneumoniaWe will admit the patient Start the patient on steroidsWe will hold off on antibiotics as patient is afebrile white count is normal we will try to get CT scan of the chest to see if there are some infiltrates or not.We will get CT of the chest to assess the infiltrates As D-dimer is elevated and troponins are elevated will continue with therapeuticanticoagulationSymptomatic managementWe will ask infectious disease and pulmonary to evaluate Started the patient on remdesivirContinue supplemental oxygen to keep O2 sat above 90% and monitor respiratory status closelyProning NSTEMIPossibly type II in the setting of COVID-19 pneumonia with hypoxia. We will continue to trend troponins. Keep the patient on aspirin statin. We will get an echocardiogram. Monitor on telemetry. HypertensionResume lisinopril monitor blood pressure keep on as needed hydralazine PrediabetesNow that the patient will be on steroids we will keep on insulin sliding scale monitor blood sugars keep on diabetic diet COPDDoes not appear to be in COPD exacerbation will be on steroids supplemental oxygen. Monitor respiratory status closely. Pulmonary on board. DVT GI prophylaxisPatient is full codePatient was explained the plan in detail all medication effect side effects werediscussed all was well associated with the planNext of kin sister Madelyn ferguson [phone] 1Covid 19 PneumoniaCOPDHTNDMMorbid Obesity Plan------Continue on remdesevir-Continue COVID treatment protocol ( steroids, vit c/d/zinc)-Prone positioning as tolerated-Monitor inflammatory markers-Hiflow oxygen prn -Pulm and ID following-Accuchecks with ISS-Diabetic diet-Ensure tight glucose control-Resume home meds for BP hlcdgyc-Krupd-eleuxs completion of therapy and clinical improvement at 1410 at 1524 RPT #: [id number] OF REPORT PRProgress Gmwh1635-42-05C19:51:00L.[id number] able for patient wdydZGVIDPHCROWSMY8946-34-11G73:24:38 [facility] 2020-12-28 11:51:00 IIufkrmlnsf65971798D Tg7SW7HEkNWoyxj8h1Iz4NDqZmH3j CkN+OORNCG7Zr5tDwLtDt9iZlHj+UmyCDl6004-35-19X01:5 1:00 [facility] ([facility])Hospitalist Progress NoteREPORT#:[id number] REPORT STATUS: SignedDATE:12/28/20 TIME:1151 PATIENT: LOIR DELUCA UNIT #: [id number]#: [id number] ROOM[facility]BED: [facility]DOB: [birth year] AGE: 55 SEX: F ATTEND: Alfred Escobedo [facility] AUTHOR: Madison Lange APRN * ALL edits or amendments must be made on the electronic/computer document * SubjectiveHPI:on non rebreather, appears unable to tolerate much. Takes on /off. Dyspneic withtalking Objective GeneralVS/I O:Vital Signs: Date Time Temp Pulse Resp B/P B/P Pulse O2 O2 Flow FiO2 Mean Ox Delivery Rate 12/28 1134 36.5 76 16 128/83 98.2 99 High flow 13 nasal cannula 12/28 0758 Non 15 rebreather mask 12/28 0728 95 Non 14 76 rebreather mask 12/28 0718 36.6 85 16 114/74 87.4 94 Non 15 rebreather mask 12/28 0412 37.0 92 16 136/89 105.0 96 12/28 0023 90 High flow 10 nasal cannula 12/28 0005 36.5 91 20 120/78 92.4 95 12/27 2331 37.0 92 18 131/81 97.6 96 12/27 2224 Nasal 6 cannula 12/27 2216 37.2 91 18 110/72 84.9 97 12/27 2008 79 16 132/68 89 99 Nasal 6 cannula 12/27 1900 96 High flow 20 30 nasal cannula 12/27 1726 36.9 85 22 127/72 90 95 Nasal 5 cannula 24 hour I O ending at 0700: 12/28 0700 12/27 1900 Intake Total 950.00 Output Total 400 Balance 550.00 Intake, IV 450.00 Intake, Oral 500 Output, Urine 400 Patient 181.5 kg 183.1 kg Weight Weight Bed scale Bed scale Measurement Method PATIENT WEIGHT: Weight (lb): 400Weight (oz): 2.22Weight (kg): 181.500 Physical ExamGeneral appearance: obese (morbidly), alert, awake, orientedHead/Eyes: atraumatic, normocephalic, PERRLAENT: normal nose, normal pharynxNeck: non-tender, no JVDCardiovascular: regular rate rhythm, no murmur, no rub, no thrillRespiratory: crackles, hypoxiaAbdomen: non-tender, normal bowel sounds, soft, no distention, no guardingExtremities: moves all, no edemaNeuro/GREEN PRIZE PACKER: alert, oriented X 3, normal speech, no motor deficits, no sensory deficitsPsychiatry: normal affect ResultsFindings/Data:Laboratory Tests 12/28 1907 Blood Gas Puncture Site (DESCRIPTION ARTKIT) Left Radial ABG pH (7.35 - 7.45 pH units) 7.39 ABG pCO2 (35 - 45 mmHg) 45 ABG pO2 (80 - 100 mmHg) 65 L ABG PO2/FiO2 Ratio (200 mm/Hg) 216.7 ABG HCO3 (22.0 - 26.0 mmol/L) 26.8 H ABG O2 Saturation (90 - 100 %) 93 ABG Base Excess (-3.0 - 3.0 mmol/L) 1.4 Tosha Test (POSITIVE Circ.CHK) Yes Vent Mode (Vent Mode Descript) Nasal Cannula FiO2 (21 - 100 % (calc)) 30 Laboratory Tests 12/28 12/28 12/27 12/27 12/27 1121 0705 2336 1742 1742 Chemistry POC Glucose (70 - 110 mg/dL) 147 H 184 H 172 H Lactic Acid (0.4 - 2.0 mmol/L) 1.6 Troponin I (0.000 - 0.045 NG/ML) 0.039 12/27 12/27 12/27 1742 1742 1742 Chemistry Sodium (134 - 147 mmol/L) 134 Potassium (3.4 - 5.0 mmol/L) 4.0 Chloride (100 - 108 mmol/L) 97 L Carbon Dioxide (21 - 32 mmol/L) 29 Anion Gap (4.0 - 15.0 GAP calc) 8.0 BUN (7 - 18 MG/DL) 22 H Creatinine (0.6 - 1.0 MG/DL) 1.1 H Glomerular Filtr Rate (>60 estGFR) 55 L Glucose (70 - 110 MG/DL) 151 H Calcium (8.5 - 10.1 MG/DL) 8.8 Total Bilirubin (0.2 - 1.2 MG/DL) 1.20 Direct Bilirubin (0.00 - 0.30 MG/DL) 0.50 H Indirect Bilirubin (0.2 - 1.2 MG/DL) 0.70 AST (15 - 37 Unit/L) 56 H ALT (12 - 78 Unit/L) 40 Total Alk Phosphatase (45 - 117 Unit/L) 71 C-Reactive Protein (0.000 - 0.3 MG/DL) 17.000 H Total Protein (6.4 - 8.2 G/DL) 8.5 H Albumin (3.4 - 5.0 G/DL) 3.1 L Laboratory Tests 12/28 12/27 1000 1742 Coagulation INR (0.8 - 1.2 INR Unit) 1.30 H PTT (Piatt) (26 - 35 SECONDS) 38.1 H >400 *H PT Patient/Control Mix (9.3 - 12.9 SECONDS) 14.6 H Laboratory Tests 12/27 1742 Hematology WBC (3.5 - 11.0 K/mm3) 10.3 RBC (4.70 - 6.10 M/mm3) 5.70 Hgb (10.4 - 14.9 G/DL) 15.4 H Hct (31.5 - 44.1 %) 49.6 H MCV (84.5 - 98.6 Fl) 87.0 MCH (27.0 - 34.2 pg) 27.0 MCHC (31.5 - 34.0 G/DL) 31.0 L RDW (11.5 - 14.5 SD) 14.8 H Plt Count (150 - 450 K/mm3) 191 MPV (7.0 - 10.5 fL) 10.50 Neut % (Auto) (40 - 76 %) 85.6 H Lymph % (Auto) (20.5 - 51.1 %) 9.1 L Hanover % (Auto) (1.7 - 9.3 %) 3.2 Eos % (Auto) (0.0 - 6.0 %) 0.1 Baso % (Auto) (0.0 - 2.0 %) 0.3 Neut # (Auto) (1.8 - 7.6 K/mm3) 8.8 H Lymph # (Auto) (0.6 - 3.2 K/mm3) 0.9 [place] # (Auto) (0.3 - 1.1 K/mm3) 0.3 Eos # (Auto) (0.0 - 0.4 K/mm3) 0.0 Baso # (Auto) (0.0 - 0.1 K/mm3) 0.0 Abs Immat Gran (auto) (0.00 - 0.03 x10 3/uL) 0.17 H Add Manual Diff (CRITERIA DIFF/SCN) NO Immature Gran % (0.0 - 5.0 %) 1.7 Nucleated RBC % (0.0 - 1.0 /100WBC%) 0.3 Laboratory Tests 12/27 1913 Urines Urine HCG, Qual (NEGATIVE) NEGATIVE Radiology data:Recent Impressions:CAT SCAN - CTA CHEST FOR PE 12/27 1954 Report Impression - Status: SIGNED Entered: 12/27/20202025 IMPRESSION: No pulmonary embolus is identified.Patchy parenchymal opacities throughout both lungs consistent withmultifocal pneumonia. LOCATION: B2 This CT exam was performed according to our departmental doseoptimization program, which includes automated exposure control,adjustment of the mA and or kV according to patient size and/or use ofiterative reconstruction technique.Impression By: Juarez - Janis Rendon M.D. Diagnosis, Assessment Plan Free Text DxA P NotesFree text DxA P notes: Acute hypoxic respiratory failure with COVID-19 pneumoniaWe will admit the patient Start the patient on steroidsWe will hold off on antibiotics as patient is afebrile white count is normal we will try to get CT scan of the chest to see if there are some infiltrates or not.We will get CT of the chest to assess the infiltrates As D-dimer is elevated and troponins are elevated will continue with therapeuticanticoagulationSymptomatic managementWe will ask infectious disease and pulmonary to evaluate Started the patient on remdesivirContinue supplemental oxygen to keep O2 sat above 90% and monitor respiratory status closelyProning NSTEMIPossibly type II in the setting of COVID-19 pneumonia with hypoxia. We will continue to trend troponins. Keep the patient on aspirin statin. We will get an echocardiogram. Monitor on telemetry. HypertensionResume lisinopril monitor blood pressure keep on as needed hydralazine PrediabetesNow that the patient will be on steroids we will keep on insulin sliding scale monitor blood sugars keep on diabetic diet COPDDoes not appear to be in COPD exacerbation will be on steroids supplemental oxygen. Monitor respiratory status closely. Pulmonary on board. DVT GI prophylaxisPatient is full codePatient was explained the plan in detail all medication effect side effects werediscussed all was well associated with the planNext of kin sister Madelyn ferguson [phone] 1Covid 19 PneumoniaCOPDHTNDMMorbid Obesity Plan------Continue on remdesevir-Continue COVID treatment protocol ( steroids, vit c/d/zinc)-Prone positioning as tolerated-Monitor inflammatory markers-Hiflow oxygen prn -Pulm and ID following-Accuchecks with ISS-Diabetic diet-Ensure tight glucose control-Resume home meds for BP qzdfkki-Carev-gahlfb completion of therapy and clinical improvement at 1410 RPT #: [id number] OF REPORT PRProgress Rtyd7304-95-39M64:51:00L.HGCR45914909-5281LQQbmyh able for patient uhpuGEIKXXFTEANTQP6084-84-03P01:10:46 [facility] 2020-12-28 11:12:00 OOugvuwhaex61296587w osJ2532ei7ZO1ml+Y1uGTlatwpTi2 Nur0cwOu7s7U3czTfd4FpD9OzqY1TT6zZu1780-03-37U35:1 2:00 [facility] ([facility])Infect Disease Consult NoteREPORT#:[id number] REPORT STATUS: SignedDATE:12/28/20 TIME:1112 PATIENT: LORI DELUCA UNIT #: [id number]#: [id number] [address] AGE: 55 SEX: F ATTEND: Alfred Escobedo MDADM AUTHOR: Andrew Aguilar MD * ALL edits or amendments must be made on the electronic/computer document * History of Present IllnessReason for consult:PneumoniaHPI:55-year-old lady who was transferred from [facility] for acute hypoxic respiratory failure with Covid 19. She started having intermittent fevers in thepast 5 days and feeling weak. She then developed SOB. In the ER she was found to be Covid positive and was hypoxic with elevated troponi. Pt did not take the Covid vaccine as she did not believe in it. Pt was placed on nonrebreather. CXR showed bilateral infiltrates. History - Adult longitudinalAdditional medical history:Hypertension Prediabetes COPD Morbid obesity ArthritisAdditional surgical history:Asked and is negativeAdditional family history:Asked and is negativeAlcohol use: Denies EtOH useDrug use: Denies recreational drugsSmoking status: Smoking status for patients 13 years old or older: Never SmokerAllergies:Coded Allergies:acetaminophen (Intermediate, HIVES 12/27/20)codeine (Intermediate, ITCHING 12/27/20)morphine (Intermediate, HIVES 12/27/20)tramadol (Intermediate, HIVES 12/27/20) Review of SystemsConstitutional:Reports: fatigue. Skin:Denies: rash. Allergy/Immun:Denies hivesEyes:Denies dischargeENT:Denies: sore throat. Respiratory:Reports: TOURE (dyspnea on exertion). Cardiovascular:Denies: chest pain. GI:Denies: abdominal pain. :Denies: dysuria. Musculoskeletal:Denies: joint swelling. Objective GeneralVS/I O:Last Documented: Result Date Time Pulse Ox 99 12/28 1134 B/P 128/83 12/28 1134 B/P Mean 98.2 12/28 1134 O2 Delivery High flow nasal cannula 12/28 1134 O2 Flow Rate 13 12/28 1134 Temp 36.5 12/28 1134 Pulse 76 12/28 1134 Resp 16 12/28 1134 FiO2 76 12/28 0728 Vital SignsDate Temp Pulse Resp B/P B/P Mean Pulse Ox PiF997/12-12/28 36.5-37.2 76-92 16-22 110-136/68-89 84.9-105.0 90-99 30-76 24 hour I O ending at 0700: 12/28 0700 12/27 1900 Intake Total 950.00 Output Total 400 Balance 550.00 Intake, IV 450.00 Intake, Oral 500 Output, Urine 400 Patient 181.5 kg 183.1 kg Weight Weight Bed scale Bed scale Measurement Method PATIENT WEIGHT: Weight (lb): 400Weight (oz): 2.22Weight (kg): 181.500 Physical ExamGeneral appearance: obese, alert, awake, orientedHead/Eyes: atraumatic, clear cornea, EOMI, normal conjunctiva/sclera, normal eyelids/periorb, normocephalicENT: moist mucosal membranes, normal nose, normal pharynx, normal sinusNeck: full range of motion, supple/no meningismus, no masses or swellingCardiovascular: regular rate rhythmRespiratory: on oxygen, symmetric expansionAbdomen: non-tender, normal bowel sounds, soft, no CVA tenderness, no distention, no guarding, no mass/organomegaly, no reboundGenitourinary: no flank painExtremities: normal temperature, no contracture, no cyanosisMusculoskeletal: no joint swellingNeuro/GREEN PRIZE PACKER: alert, oriented X 3, CNII-XII intact, normal speechSkin: normal color, normal turgor, no rashPsychiatry: normal affect, normal judgment/insight, normal mood Diagnosis, Assessment Plan Free Text DxA P NotesFree text DxA P notes:Labs:WBC normal 12/27Creatinine slight high 12/27ALT normal 12/27 Imaging:CTA no PE, there were bilateral infiltrates 12/27 Assessment:1. Pneumonia with covid-19.2. Acute respiratory failure with hypoxia.3. Morbid obesity. Plan:1. Continue remdesivir (day 2).2. Steroids.3. Pt initially declined CV plasma but then she changed her mind. CV plasma ordered.4. Monitor inflammatory markers.5. Low threshold to start antibiotics. Thank you for this consult. at 1511 [facility] #: [id number] OF REPORT YRHdgptijgvopn1422-48-75Z57:12:00L.[id number] 082AVAvailable for patient juwyBYTLNZZNFJEQIN2278-96-45N14:12:06 [facility] 2020-12-28 00:14:00 [id number] pQ6EZYHwwmrZrxUJTAut9U0uz6dRw BXN7WQ42SlMBLn5frt0aoVzvVWwHEJpwz50319-36-95Q82:1 4:00 [facility] HospitalClinical NoteREPORT#:[id number] REPORT STATUS: SignedDATE:12/28/20 TIME:13 PATIENT: LORI DELUCA UNIT #: [id number]#: [id number] ROOM[facility]BED: [facility]DOB: [birth year] AGE: 55 SEX: F ATTEND: Alfred Escobedo [facility] AUTHOR: Wiliam Love NP * ALL edits or amendments must be made on the electronic/computer document * Clinical NoteNote:Zoya ELIAS caring for pt comes to me requesting for the pt to be on BIPAP or CPAP.I have seen the pt with the nurse at bedside. found pt down on the bed, The nurse and I assisted the pt up, put the HOB up. Nurse has adjusted the o2 and increased it to 8 LPM by N/C. pt pulled her N/C off. will add a mcneil catheter, Placed her on Non-rebreather mask, sao2 up to 98%. Pt admits that she doesn't use any CPAP or oxygen at home. will continue to monitor. 04:50 A.M. pt is sitting up drinking a spirite drink. at 0317 RPT #: [id number] OF REPORT CLClinical dubr4723-47-68A69:14:00L.UQZG66634664-2047KTCrwmv able for patient pyuxBRMAEGUVKPRNJD4374-80-06Z68:18:03 [facility] 2020-12-28 00:14:00 GKnrgcyamxz45100287R 7Gtnr4yAE3qDyyQH11nPuHCAWPhLv ZvCok/c2sfnItLzdQT5c7qgey/uiDK46ip1620-36-08G26:1 4:00 [facility] ([facility])Clinical NoteREPORT#:[id number] REPORT STATUS: SignedDATE:12/28/20 TIME:001 PATIENT: LORI DELUCA UNIT #: [id number]#: [id number] ROOM[facility]BED: [facility]DOB: [birth year] AGE: 55 SEX: F ATTEND: Alfred Escobedo [facility] AUTHOR: Wiliam Love NP * ALL edits or amendments must be made on the electronic/computer document * Clinical NoteNote:Zoya RN caring for pt comes to me requesting for the pt to be on BIPAP or CPAP.I have seen the pt with the nurse at bedside. found pt down on the bed, The nurse and I assisted the pt up, put the HOB up. Nurse has adjusted the o2 and increased it to 8 LPM by N/C. pt pulled her N/C off. will add a mcneil catheter, Placed her on Non-rebreather mask, sao2 up to 98%. Pt admits that she doesn't use any CPAP or oxygen at home. will continue to monitor. 04:50 A.M. pt is sitting up drinking a spirite drink. at 0317 at 1423 RPT #: [id number] OF REPORT CLClinical utxn7357-63-22O57:14:00L.IBOW01453567-4161KJUdmys able for patient tqxoVIEYTBXGDFGPJE2266-78-36T17:23:40 [facility] 2020-12-27 18:30:00 [id number] LrNniNdDRRAiiare5LBrSTcowI4R5 8vxWkNLVJ/7o1SS4bPTaUttkmwkPE4xFlX9946-46-46U33:3 0:00 [facility] ([facility])Hospitalist History PhysicalREPORT#:[id number] REPORT STATUS: SignedDATE:12/27/20 TIME:183 PATIENT: LORI DELUCA UNIT #: [id number]#: [id number] [address] [birth year] AGE: 55 SEX: F ATTEND: Alfred Escobedo [facility] AUTHOR: Alfred Escobedo MD * ALL edits or amendments must be made on the electronic/computer document * History of Present Illness HPIChief complaint:Shortness of breath for 3 daysPCP:PCP: No Primary or Family Physician HPI:This is 55-year-old lady who was transferred from [facility] for acute hypoxic respiratory failure with Covid 19 infection.Patient stated that she started having some fevers in the past 5 days and feeling weak and in the past 3 days she started having shortness of breath and the symptoms kept getting worse so she decided to come to the ER. In the ER shewas found to be Covid positive and was hypoxic with elevated troponin and D-dimer.Patient denies any headache sore throat complains of occasional cough denies anychest pain palpitations abdominal pain diarrhea constipation any problem in the urine or any focal weaknessPatient is not sure how she got the Covid infection she lives by herself but is not compliant with the masks.She did not take the Covid vaccine as she did not believe in it.At the time of my evaluation patient was on 6 L of supplemental oxygen via nasalcannula O2 sats and 92 to 93% Clinical data from the ERA shows pH 7.36 PCO2 55 PO2 100, O2 sat 97% on nonrebreatherSodium 136 potassium 4 chloride 97 bicarb 30 glucose 114 BUN 22 creatinine 1.1 total bilirubin 1.2 alkaline phosphatase 65 AST is 56 ALT 33 albumin 2.8High-sensitivity troponin I 45WBC 8.5 hemoglobin 14.6 hematocrit 44.3 platelet 178D-dimer 882Covid antigen test positiveChest x-ray multifocal pneumonia History Past Medical Surgical HxAdditional medical history:HypertensionPrediabetesCOPDMorbid obesityArthritisAdditional surgical history:Asked and is negative Family HistoryAdditional family history:Asked and is negative Social HistoryAlcohol use: Denies EtOH useDrug use: Denies recreational drugsSmoking status: Smoking status for patients 13 years old or older: Never Smoker Medication/Allergy-Vaccine HxMedications:Home medication include Zoloft Zestril and Flexeril Allergies:Coded Allergies:acetaminophen (Intermediate, HIVES 12/27/20)codeine (Intermediate, ITCHING 12/27/20)morphine (Intermediate, HIVES 12/27/20)tramadol (Intermediate, HIVES 12/27/20) Review of SystemsAll systems rev neg: except as noted Physical ExamVS/I O:Vital Signs Date Temp Pulse Resp B/P B/P Mean Pulse Ox FiO2 12/27 36.9 85 22 127/72 90 95 Last Documented: Result Date Time Pulse Ox 95 12/27 1726 B/P 127/72 12/27 1726 B/P Mean 90 12/27 1726 O2 Delivery Nasal cannula 12/27 172 O2 Flow Rate 5 12/27 172 Temp 36.9 12/27 172 Pulse 85 12/27 1726 Resp 22 12/27 1726 Patient Weight and BMI Weight (kg): 183.100 BMI: 76.3 General appearance: lethargic, obese (morbidly obese), alert, awake, orientedHead/Eyes: atraumatic, normocephalic, PERRLAENT: normal nose, normal pharynxNeck: non-tender, no JVDCardiovascular: regular rate rhythm, no murmur, no rub, no thrillRespiratory: crackles, hypoxiaAbdomen: non-tender, normal bowel sounds, soft, no distention, no guardingExtremities: moves all, no edemaNeuro/[employer] PACKER: alert, oriented X 3, normal speech, no motor deficits, no sensory deficitsPsychiatry: normal affect ResultsFindings/Data:Laboratory Tests: 12/27 12/27 1742 1742 Chemistry Sodium (134 - 147 mmol/L) 134 Potassium (3.4 - 5.0 mmol/L) 4.0 Chloride (100 - 108 mmol/L) 97 L Carbon Dioxide (21 - 32 mmol/L) 29 Anion Gap (4.0 - 15.0 GAP calc) 8.0 BUN (7 - 18 MG/DL) 22 H Creatinine (0.6 - 1.0 MG/DL) 1.1 H Glomerular Filtr Rate (>60 estGFR) 55 L Glucose (70 - 110 MG/DL) 151 H Lactic Acid (0.4 - 2.0 mmol/L) 1.6 Calcium (8.5 - 10.1 MG/DL) 8.8 Hematology WBC (3.5 - 11.0 K/mm3) 10.3 RBC (4.70 - 6.10 M/mm3) 5.70 Hgb (10.4 - 14.9 G/DL) 15.4 H Hct (31.5 - 44.1 %) 49.6 H MCV (84.5 - 98.6 Fl) 87.0 MCH (27.0 - 34.2 pg) 27.0 MCHC (31.5 - 34.0 G/DL) 31.0 L RDW (11.5 - 14.5 SD) 14.8 H Plt Count (150 - 450 K/mm3) 191 MPV (7.0 - 10.5 fL) 10.50 Neut % (Auto) (40 - 76 %) 85.6 H Lymph % (Auto) (20.5 - 51.1 %) 9.1 L [place] % (Auto) (1.7 - 9.3 %) 3.2 Eos % (Auto) (0.0 - 6.0 %) 0.1 Baso % (Auto) (0.0 - 2.0 %) 0.3 Neut # (Auto) (1.8 - 7.6 K/mm3) 8.8 H Lymph # (Auto) (0.6 - 3.2 K/mm3) 0.9 [place] # (Auto) (0.3 - 1.1 K/mm3) 0.3 Eos # (Auto) (0.0 - 0.4 K/mm3) 0.0 Baso # (Auto) (0.0 - 0.1 K/mm3) 0.0 Abs Immat Gran (auto) (0.00 - 0.03 x10 3/uL) 0.17 H Add Manual Diff (CRITERIA DIFF/SCN) NO Immature Gran % (0.0 - 5.0 %) 1.7 Nucleated RBC % (0.0 - 1.0 /100WBC%) 0.3 Laboratory Tests 12/27/20 1742:[Embedded Image Not Available] Results: labs reviewed, current med profile rev'd Diagnosis, Assessment PlanFree Text A P:Acute hypoxic respiratory failure with COVID-19 pneumoniaWe will admit the patient Start the patient on steroidsWe will hold off on antibiotics as patient is afebrile white count is normal we will try to get CT scan of the chest to see if there are some infiltrates or not.We will get CT of the chest to assess the infiltrates As D-dimer is elevated and troponins are elevated will continue with therapeuticanticoagulationSymptomatic managementWe will ask infectious disease and pulmonary to evaluate Started the patient on remdesivirContinue supplemental oxygen to keep O2 sat above 90% and monitor respiratory status closelyProning NSTEMIPossibly type II in the setting of COVID-19 pneumonia with hypoxia. We will continue to trend troponins. Keep the patient on aspirin statin. We will get an echocardiogram. Monitor on telemetry. HypertensionResume lisinopril monitor blood pressure keep on as needed hydralazine PrediabetesNow that the patient will be on steroids we will keep on insulin sliding scale monitor blood sugars keep on diabetic diet COPDDoes not appear to be in COPD exacerbation will be on steroids supplemental oxygen. Monitor respiratory status closely. Pulmonary on board. DVT GI prophylaxisPatient is full codePatient was explained the plan in detail all medication effect side effects werediscussed all was well associated with the planNext of kin sister Madelyn ferguson [phone] at 1844 RPT #: [id number] OF REPORT HPHistory and physical [id number]:30:00L.[id number] AVAvailable for patient [id number]:44:56 [facility] 2020-12-27 17:28:00 [id number] qd5lCHa/lCWn/[id number] [id number]:2 8:00 [facility] ([facility])EMERGENCY PROVIDER REPORTREPORT#:[id number] REPORT STATUS: SignedDATE:12/27/20 TIME:1728 PATIENT: LORI DELUCA UNIT #: [id number]#: [id number] [address] AGE: 55 SEX: F PCP PHYS: No Primary or Family PhysicianSERVICE AUTHOR: Nancie Brandon MD * ALL edits or amendments must be made on the electronic/computer document * HPI-Dyspnea/Wheezing Free Text HPI NotesFree Text HPI [id number] WF with PMH of COPD, HTN, and morbid obesity transferred from [facility] with COVID pneumonia. Presented to OSH with progressively worsening shortness of breath and fever x 3 days. 78% on RA with EMS; 96% on 15LNRB. Of note, patient was not unable to fit in CT scan at [facility] despite positive D-dimer due to morbid obesity. Significant Labs: CBC: wnl CMP: wnl Misc:AB.36/55/100/30 0.2/3.30/97%Troponin: 145.9D-dimer: 882.7 Rapid Covid: Positive Imaging:CXRImpression:Multifocal pneumonia possibly viral in etiology EKG:Time: 1439Rate: 92Normal sinus rhythm, normal axis, no ST elevation; normal EKG Meds Given:Albuterol x 3Atrovent x 1Magnesium sulfate 2 g x 1Solu-Medrol 125 mg (given by EMS prehospital)Dexamethasone 8 mg (given in the ER)ASA 324 mgHeparin 5000 unit bolus plus titratable infusion GeneralInitial Greet Date/Time 12/27/20 1726 PresentationChief Complaint Shortness of breath)( Sudden in Onset? No Review of Systems ROS StatementsAll systems rev neg except as marked. Free Text ROS NotesFree Text ROS NotesCONSTITUTIONAL: No fever, fatigue or weight loss. SKIN: No rash. HENT: No congestion, ear pain, or sore throat. EYES: No recent vision problems or eye pain. ENDOCRINE: No thyroid problems. No polyuria or polydipsia. CARDIOVASCULAR: No chest pain or edema.RESPIRATORY: No cough, shortness of breath, congestion, or wheezing. GASTROINTESTINAL: No abdominal pain, nausea, vomiting, bloody stools or diarrhea. GENITOURINARY: No dysuria. MUSCULOSKELETAL: No joint pain or swelling. LYMPHATIC: No swollen glands. NEUROLOGIC: No seizures. No headache, focal weakness or sensory changes. HEMATOLOGIC: No unusual bruising or bleeding. PSYCHIATRIC: No depression or anxiety. Past Medical History - AdultStated Complaint SHORTNESS OF BREATH, COVID +AllergiesCoded Allergies:acetaminophen (Intermediate, HIVES 12/27/20)codeine (Intermediate, ITCHING 12/27/20)morphine (Intermediate, HIVES 12/27/20)tramadol (Intermediate, HIVES 12/27/20) Home MedicationsReported MedicationsSERTRALINE (ZOLOFT) 50 MG PO DAILY LISINOPRIL (ZESTRIL) 20 MG PO DAILY Physical Exam Vital SignsVital SignsFirst Documented: Result Date Time Pulse Ox 95 12/27 1726 B/P 127/72 12/27 1726 B/P Mean 90 12/27 1726 O2 Delivery Nasal cannula 12/27 1726 O2 Flow Rate 5 12/27 1726 Temp 98.5 12/27 1726 Pulse 85 12/27 1726 Resp 22 12/27 172 Last Documented: Result Date Time Pulse Ox 95 12/27 1726 B/P 127/72 12/27 1726 B/P Mean 90 12/27 1726 O2 Delivery Nasal cannula 12/27 1726 O2 Flow Rate 5 12/27 1726 Temp 98.5 12/27 1726 Pulse 85 12/27 1726 Resp 12/27 172 Review of Vital Signs Reviewed, Vital signs normal Focused PEGeneral/Const General/Const Awake, AlertEars/Nose/Throat Ears/Nose/Throat Airway patent, Mucous membranes moist, Pharynx NLMS Neck Neck Atraumatic, Supple, No meningismus, Full range of motion, No swelling, Non-tender, No massesResp/Chest Respiratory/Chest Breath sounds NL, Breath sounds = bilat, No respiratory distress, No rales, No rhonchi, No wheezing, No retractions, No stridorCardiovascular Cardiovascular Heart rate NL, Regular rhythm, Heart sounds NL, Peripheral circulation NLAbdomen/GI Abdomen/GI Soft, Non-tender, No guarding, No reboundMS Back Back Inspection NL, Non-tender, No CVA tendernessMS Lower Extrem Lower Ext/Pelvis/MS Inspection NL, No swelling, Non-tender, No erythema, No deformity, Neurologic intact, No edemaSkin Skin Color NL, No rash, Warm, Dry, Turgor NLNeurologic Neurologic Oriented X3, Speech NL, No motor deficits, No sensory deficits Interpretation Diagnostics Lab Results InterpretationResultsLaboratory Tests 12/27/201741:[Embedded Image Not Available]Laboratory Tests: 12/27 174 Chemistry Sodium (134 - 147 mmol/L) 134 Potassium (3.4 - 5.0 mmol/L) 4.0 Chloride (100 - 108 mmol/L) 97 L Carbon Dioxide (21 - 32 mmol/L) 29 Anion Gap (4.0 - 15.0 GAP calc) 8.0 BUN (7 - 18 MG/DL) 22 H Creatinine (0.6 - 1.0 MG/DL) 1.1 H Glomerular Filtr Rate (>60 estGFR) 55 L Glucose (70 - 110 MG/DL) 151 H Lactic Acid (0.4 - 2.0 mmol/L) 1.6 Calcium (8.5 - 10.1 MG/DL) 8.8 Hematology WBC (3.5 - 11.0 K/mm3) 10.3 RBC (4.70 - 6.10 M/mm3) 5.70 Hgb (10.4 - 14.9 G/DL) 15.4 H Hct (31.5 - 44.1 %) 49.6 H MCV (84.5 - 98.6 Fl) 87.0 MCH (27.0 - 34.2 pg) 27.0 MCHC (31.5 - 34.0 G/DL) 31.0 L RDW (11.5 - 14.5 SD) 14.8 H Plt Count (150 - 450 K/mm3) 191 MPV (7.0 - 10.5 fL) 10.50 Neut % (Auto) (40 - 76 %) 85.6 H Lymph % (Auto) (20.5 - 51.1 %) 9.1 L [place] % (Auto) (1.7 - 9.3 %) 3.2 Eos % (Auto) (0.0 - 6.0 %) 0.1 Baso % (Auto) (0.0 - 2.0 %) 0.3 Neut # (Auto) (1.8 - 7.6 K/mm3) 8.8 H Lymph # (Auto) (0.6 - 3.2 K/mm3) 0.9 [place] # (Auto) (0.3 - 1.1 K/mm3) 0.3 Eos # (Auto) (0.0 - 0.4 K/mm3) 0.0 Baso # (Auto) (0.0 - 0.1 K/mm3) 0.0 Abs Immat Gran (auto) (0.00 - 0.03 x10 3/uL) 0.17 H Add Manual Diff (CRITERIA DIFF/SCN) NO Immature Gran % (0.0 - 5.0 %) 1.7 Nucleated RBC % (0.0 - 1.0 /100WBC%) 0.3 Microbiology: Date/Time Procedure - Status Source Growth 12/27 180 MRSA Screen - ORD NASAL 12/27 1736 Blood Culture - ORD BLOOD 12/27 1736 Blood Culture - ORD BLOOD ECG #1 InterpretationText/Dict NoteTime: 174Rate: 84Normal sinus rhythm, normal axis, no ST elevation; normal EKG Re-Evaluation MDM Free Text MDM NotesFree Text MDM NotesA/P: 55yo AAF with PMH as above transferred from [facility] for COVID Pneumonia. Case d/w Dr. Escobedo (hospitalist); admission accepted. Orders to be placed by admitting team. Goals of care and advance directives were discussed in ED with patient/family and hospitalist was updated upon admission. Pt currently FULL CODE. )( Re-Evaluation/Progress #1)( Re-Eval Status ImprovedPlan Post Re-Eval Plan admit ED CourseMedication(s) OrderedMedication(s) Ordered:Anti-Infective Agents Sig/[place] Start time Last Medication Dose Route Stop Time Status Admin Azithromycin 500 MG X1ED STA 12/27 1737 DC 12/27 Sodium Chloride 250 ML IV 12/27 1836 1755 Ceftriaxone Sodium 1,000 MG X1ED STA 12/27 1737 AC 12/27 Sodium Chloride 100 ML IV 12/31 2136 1756 Blood Formation,Coagulation Sig/[place] Start time Last Medication Dose Route Stop Time Status Admin Heparin Sodium/ 250 ML ASDIR 12/27 1800 PEND Dextrose IV 01/10 1759 Patient Discharge Departure Vital Signs/ConditionVital SignsFirst Documented: Result Date Time Pulse Ox 95 12/27 1726 B/P 127/72 12/27 1726 B/P Mean 90 12/27 1726 O2 Delivery Nasal cannula 12/27 1726 O2 Flow Rate 5 12/27 1726 Temp 98.5 12/27 1726 Pulse 85 12/27 1726 Resp 22 12/27 1726 Last Documented: Result Date Time Pulse Ox 95 12 1726 B/P 127/72 12/27 1726 B/P Mean 90 12/27 1726 O2 Delivery Nasal cannula 12/27 1726 O2 Flow Rate 5 12/27 1726 Temp 98.5 12/27 1726 Pulse 85 12 1726 Resp 22 06/12 1726 All vital signs available at the time of this entry have been reviewed. Clinical ImpressionClinical ImpressionPrimary Impression: Pneumonia due to COVID-19 virus Disposition DecisionAdmit Admit Physician Name FannySteffen alonsofelton Hernandez MD Admit Physician Hospitalist Request Time 1756 Request Date 12/27/20 )( Admission Accepts Yes )( Accepted Time 1756 )( Accepted Date 12/27/20 Call Information will see patient Discharge/Care PlanCounseled Regarding Diagnosis, Lab results, Imaging studies, Need for admission Admit NoteI have spoken with the patient and/or caregivers. I have explained the patient'scondition, diagnoses and treatment plan based on the information available to meat this time. I have answered the patient's and/or caregiver's questions and addressed any concerns. The patient and/or caregivers have as good an understanding of the patient's diagnosis, condition and treatment plan as can beexpected at this point. The patient has been stabilized within the capability ofthe emergency department. The patient will be transported for further care and management or will be moved to an observation or inpatient service. I have communicated with the staff or medical practitioner taking over this patient's care. Quality [id number] ECG for CP Performed documented at [address] [facility] #: [id number] OF REPORTEDEmerchristus dubuis hospital department [id number]:28:00L.[id number] ilable for patient [id number]:22:07 HCAPM"
[2023-11-06 10:31] LABS: Absolute Basophils 0.1 K/uL (0-0.5); Absolute Eosinophils 0.2 K/uL (0-0.5); Absolute Lymphocytes (CBC) 1.8 K/uL (0.7-4.9); Absolute Monocytes 0.4 K/uL (0.1-1.3); Absolute Neutrophil 7.3 K/uL (1.8-8.0); Basophils % 1.1 % (0-1.3); Eosinophils % 2.4 % (0-4.4); Hematocrit 46.1 % (36.0-45.0); Hemoglobin 15.1 g/dL (12.0-15.0); Lymphocytes % 18.7 % (15.3-44.8); MCH 28.4 pg (27.0-35.0); MCHC 32.8 g/dL (32.0-36.0); MCV 86.7 fL (80-100); MPV 8.6 fL (7.6-11.3); Monocytes % 3.7 % (3.3-12.3); Neutrophils % 74.1 % (41.7-73.7); Nucleated Red Blood Cells % 0.1 % (0-0); Platelets 250 thou/uL (152-406); RBC Red Blood Cell Count 5.32 M/uL (3.86-4.86); Red Cell Distribution Width 14.2 % (12.1-15.2)
--- NOTE | 2023-11-06 10:58 | RAD REPORT ---
EXAM DESCRIPTION: RAD - Chest Single View - 11/06/2023 10:49 am CLINICAL HISTORY: CHEST PAIN COMPARISON: Chest Single View dated 01/03/2020; Chest Pa And Lat (2 Views) dated 12/27/2018; Chest Sin gle View dated 07/12/2018 FINDINGS: Lines: None. Lungs: No evidence of edema or pneumonia. Pleural: No significant pleural effusions or pneumothorax. Cardiac: The heart size is within normal limits. Mediastinum: Within normal limits. Bones: No acute fractures. Other: None IMPRESSION: No acute cardiopulmonary disease.
[2023-11-06] MEDS ORDERED: ASPIRIN 81 MG CHEWABLE TABLET ONE (11:09)
[2023-11-06 11:26] LABS: ALT/SGPT 20 U/L (13-56); AST/SGOT 13 U/L (15-37); Albumin 3.5 g/dL (3.4-5.0); Albumin/Globulin Ratio 0.8 (1.1-1.8); Alkaline Phosphatase 80 U/L (45-117); Anion Gap 8.4 mEq/L (5.0-15.0); BUN Blood Urea Nitrogen 17 mg/dL (7-18); Bicarbonate 29 mEq/L (21-32); Bilirubin Direct 0.2 mg/dL (0-0.2); Bilirubin Total 1.2 mg/dL (0.2-1.0); Globulin 4.2 g/dL (2.3-3.5); Glomerular Filtration Rate 61 ml/min (=/>90); Glucose Level 99 mg/dL (74-106); NT PRO-BNP 49 pg/mL (<125); Potassium 4.4 mEq/L (3.5-5.1); Protein, Total 7.7 g/dL (6.4-8.2); Sodium Level 134 mEq/L (136-145)
[2023-11-06 11:29] LABS: Troponin High Sensitivity < 3.0 pg/mL (<58.9)
--- NOTE | 2023-11-06 12:24 | EDPHYS ---
Physician Documentation [facility] Name: Sena Wu Age: 58 yrs Sex: Female : 1965 Arrival Date: 11/06/2023 Time: 09:42 Bed 17 Private MD: Amparo Cramer ED Physician Adriano Gustafson HPI: 11/05 10:49 This 58 yrs old Female presents to ER via Wheelchair with complaints of Chest rt Pain, Shortness Of Breath. 10:49 Patient presents to the ED with chest pain, shortness of breath starting this morning. rt Denies any diagnosed cardiac history denies other acute complaints at this time. States that symptoms have somewhat improved, denies any chest pain currently but states that has been intermittent. Denies other acute complaints, symptoms are moderate in severity, no other aggravating or alleviating factors.. Historical: - Allergies: 09:54 ACETAMINOPHEN; ll1 09:54 Codeine; ll1 09:54 diphenhydramine HCl; ll1 09:54 tramadol; ll1 - PMHx: 09:54 Arthritis; COPD; Depression; Hypertension; Obesity; ll1 - Immunization history:: Adult Immunizations up to date. - Infectious Disease History:: Denies. - Social history:: Smoking status: Patient denies any tobacco usage or history of. - Family history:: not pertinent. ROS: 10:49 Constitutional: Negative for fever, chills, and weight loss, Abdomen/GI: Negative for rt abdominal pain, nausea, vomiting, diarrhea, and constipation, MS/Extremity: Negative for injury and deformity, Skin: Negative for injury, rash, and discoloration, Neuro: Negative for headache, weakness, numbness, tingling, and seizure, 10:49 Cardiovascular: Positive for chest pain, Negative for edema, 10:49 Respiratory: Positive for shortness of breath, Negative for cough, Exam: 10:49 Constitutional: This is a well developed, well nourished patient who is awake, alert, rt and in no acute distress. Head/Face: Normocephalic, atraumatic. Chest/axilla: Normal chest wall appearance and motion. Nontender with no deformity. No lesions are appreciated. Cardiovascular: Regular rate and rhythm with a normal S1 and S2. No gallops, murmurs, or rubs. Normal PMI, no JVD. No pulse deficits. Respiratory: Lungs have equal breath sounds bilaterally, clear to auscultation and percussion. No rales, rhonchi or wheezes noted. No increased work of breathing, no retractions or nasal flaring. Abdomen/GI: Soft, non-tender, with normal bowel sounds. No distension or tympany. No guarding or rebound. No evidence of tenderness throughout. Skin: Warm, dry with normal turgor. Normal color with no rashes, no lesions, and no evidence of cellulitis. MS/ Extremity: Pulses equal, no cyanosis. Neurovascular intact. Full, normal range of motion. Neuro: Awake and alert, GCS 15, oriented to person, place, time, and situation. Cranial nerves II-XII grossly intact. Motor strength 5/5 in all extremities. Sensory grossly intact. Cerebellar exam normal. Normal gait. 10:59 ECG was reviewed by the Attending Physician. rt Vital Signs: 09:55 BP 124 / 56; Pulse 67; Resp 20; Temp 97.9; Pulse Ox 99% on R/A; Weight 204.12 kg; ll1 Height 5 ft. 1 in. ; 10:31 BP 119 / 77; Pulse 72; Resp 20; Pulse Ox 94% on R/A; Pain 0/10; ld2 11:13 BP 98 / 60; Pulse 72; Resp 18; Pulse Ox 100% on R/A; Pain 0/10; ld2 12:24 BP 112 / 72; Pulse 71; Resp 16; Pulse Ox 99% on R/A; Pain 0/10; ld2 14:10 BP 97 / 58; Pulse 77; Resp 18; Pulse Ox 100% on R/A; Pain 0/10; ld2 09:55 Body Mass Index 85.03 (204.12 kg, 154.94 cm) ll1 10:31 Pain Scale: Adult ld2 11:13 Pain Scale: Adult ld2 12:24 Pain Scale: Adult ld2 14:10 Pain Scale: Adult ld2 Ruston Coma Score: 10:31 Eye Response: spontaneous(4). Motor Response: obeys commands(6). Verbal Response: ld2 oriented(5). Total: 15. 11:13 Eye Response: spontaneous(4). Motor Response: obeys commands(6). Verbal Response: ld2 oriented(5). Total: 15. 12:24 Eye Response: spontaneous(4). Motor Response: obeys commands(6). Verbal Response: ld2 oriented(5). Total: 15. 14:10 Eye Response: spontaneous(4). Motor Response: obeys commands(6). Verbal Response: ld2 oriented(5). Total: 15. MDM: 09:54 Patient medically screened. rt 12:24 Differential diagnosis: ACS, nonspecific chest pain, unstable angina, pneumonia, rt pneumothorax. HEART Score: History: Moderately Suspicious (1), ECG: Normal (0), Age: > 45 and < 65 years (1), Risk Factors: > or = 3 Risk factors for atherosclerotic disease (2), Troponin: < or = 1 x Normal Limit (0), Total Score = 4. The patient was given aspirin in the Emergency Department. Data reviewed: vital signs, nurses notes, lab test result(s), EKG, radiologic studies. Consideration of Admission/Observation Patient was admitted/placed on observation. Management of patient was discussed with the following: Hospitalist: Agrees to admit. I considered the following discharge prescriptions or medication management in the emergency department Medications were administered in the Emergency Department. See MAR. Independent interpretation of the following test(s) in the Emergency Department X-Ray: My interpretation is No pneumonia symptomatic rotation of x-ray images. Test considered but Not performed: CT: Lower suspicion for PE, CT angiogram not indicated. Care significantly affected by the following chronic conditions: Diabetes, Hypertension. Counseling: I had a detailed discussion with the patient and/or guardian regarding the historical points, exam findings, and any diagnostic results supporting the discharge/admit diagnosis, lab results, radiology results, the need for further work-up and treatment in the hospital. 11/05 10:03 Order name: Basic Metabolic Panel; Complete Time: 11:36 rt 11/05 10:03 Order name: CBC with Diff; Complete Time: 10:59 rt 11/05 10:03 Order name: LFT's; Complete Time: 11:36 rt 11/05 10:03 Order name: Magnesium; Complete Time: 11:36 rt 11/05 10:03 Order name: NT PRO-BNP; Complete Time: 11:36 rt 11/05 10:03 Order name: Troponin HS; Complete Time: 11:36 rt 11/05 11:51 Order name: Troponin High Sensitivity rt 11/05 13:23 Order name: T4 Free EDMS 11/05 13:23 Order name: Thyroid Stimulating Hormone EDMS 11/05 13:23 Order name: Basic Metabolic Panel EDMS 11/05 13:23 Order name: Basic Metabolic Panel EDMS 11/05 13:23 Order name: CBC with Automated Diff EDMS 11/05 13:23 Order name: CBC with Automated Diff EDMS 11/05 13:23 Order name: Lipid Profile EDMS 11/05 13:23 Order name: Lipid Profile EDMS 11/05 13:23 Order name: Magnesium EDMS 11/05 13:23 Order name: Magnesium EDMS 11/05 13:23 Order name: Phosphorus EDMS 11/05 13:23 Order name: Phosphorus EDMS 11/05 13:23 Order name: Troponin High Sensitivity EDMS 11/05 13:23 Order name: Troponin High Sensitivity EDMS 11/05 13:23 Order name: Troponin High Sensitivity EDMS 11/05 10:03 Order name: XRAY Chest (1 view); Complete Time: 10:59 rt 11/05 13:23 Order name: Echo with Doppler EDMS 11/05 13:23 Order name: Echo with Doppler EDMS 11/05 10:03 Order name: EKG; Complete Time: 10:03 rt 11/05 10:03 Order name: Cardiac monitoring; Complete Time: 10:27 rt 11/05 10:03 Order name: EKG - Nurse/Tech; Complete Time: 10:27 rt 11/05 10:03 Order name: IV Saline Lock; Complete Time: 10:27 rt 11/05 10:03 Order name: Labs collected and sent; Complete Time: 10:27 rt 11/05 10:03 Order name: O2 Per Protocol; Complete Time: 10:03 rt 11/05 10:03 Order name: O2 Sat Monitoring; Complete Time: 10:03 rt 11/05 10:37 Order name: Labs - recollect needed: recollect chemistries hemolyzed per Rosemarie; eb Complete Time: 10:57 EC:59 Rate is 77 beats/min. Rhythm is regular, Normal Sinus Rhythm with No ectopy. QRS [place] rt is Normal. MO interval is normal. QRS interval is normal. QT interval is normal. T waves are Normal. No ST changes noted. Interpreted by me. Administered Medications: 11:10 Drug: Aspirin PO 325 mg PO once Route: PO; ld2 12:25 Follow up: Response: No adverse reaction; No change in condition ld2 Disposition Summary: 11/06/23 12:23 Hospitalization Ordered Notes: Hospitalization Status: Observation rt Provider: Shoaib Santos rt Location: Telemetry/MedSurg (observation) rt Condition: Stable rt Problem: new rt Symptoms: are unchanged rt Bed/Room Type: Standard rt Room Assignment: 405(11/06/23 13:43) eb Diagnosis - Chest pain, unspecified rt Forms: - Medication Reconciliation Form rt - SBAR form rt - Leadership Thank You Letter rt Signatures: Dispatcher [employer] EDMS Omaira Durham Lynsay RN RN ll1 Adriano Gustafson MD MD rt Nguyen Lugo RN RN ld2 Corrections: (The following items were deleted from the chart) 11:51 11:51 Troponin High Sensitivity+C.LAB.BRZ ordered. EDDC EDMS 13:43 12:23 rt eb
--- NOTE | 2023-11-06 12:24 | ER ---
Nurse's Notes [facility] Name: Sena Wu Age: 58 yrs Sex: Female : 1965 Arrival Date: 11/06/2023 Time: 09:42 Bed 17 Private MD: Amparo Cramer Diagnosis: Chest pain, unspecified Presentation: 11/05 09:55 Chief complaint: Patient states: CP and SOB began this morning. "My COPD is acting up". ll1 No fever. Coronavirus screen: Client denies travel out of the [place] in the last 14 days. cough unrelated to allergies, difficulty breathing, shortness of breath. Ebola Screen: Patient denies travel to an Ebola-affected area in the 21 days before illness onset. Initial Sepsis Screen: Does the patient meet any 2 criteria? No. Patient's initial sepsis screen is negative. Does the patient have a suspected source of infection? No. Patient's initial sepsis screen is negative. Risk Assessment: Do you want to hurt yourself or someone else? Patient reports no desire to harm self or others. Onset of symptoms was November 06, 2023. 09:55 Method Of Arrival: Wheelchair ll1 09:55 Acuity: DREW 3 ll1 Triage Assessment: 09:57 General: Appears uncomfortable, Behavior is calm, cooperative, appropriate for age. ll1 General: Denies fever. Pain: Complains of pain in chest Quality of pain is described as aching, Aggravated by deep breathing. Cardiovascular: Reports chest pain, shortness of breath. Respiratory: Reports shortness of breath cough that is labored breathing pain with respiration. Historical: - Allergies: 09:54 ACETAMINOPHEN; ll1 09:54 Codeine; ll1 09:54 diphenhydramine HCl; ll1 09:54 tramadol; ll1 - PMHx: 09:54 Arthritis; COPD; Depression; Hypertension; Obesity; ll1 - Immunization history:: Adult Immunizations up to date. - Infectious Disease History:: Denies. - Social history:: Smoking status: Patient denies any tobacco usage or history of. - Family history:: not pertinent. Screenin:30 [facility] ED Fall Risk Assessment (Adult) History of falling in the last 3 months, ld2 including since admission No falls in past 3 months (0 pts) Confusion or Disorientation No (0 pts) Intoxicated or Sedated No (0 pts) Impaired Gait Yes (1 pt) Mobility Assist Device Used Yes (1 pt) Altered Elimination No (0 pt) Score/Fall Risk Level 0 - 2 = Low Risk Oriented to surroundings, Maintained a safe environment, Educated pt \\T\\ family on fall prevention, incl call for assistance when getting out of bed, Assessed \\T\\ reinforced patient's understanding of fall precautions, Provided non-skid footwear, Hourly rounding (assess needs \\T\\ fall precautionary measures) done, Used ambulatory aids as needed (educated on \\T\\ assisted with), Used gait belt as appropriate. Abuse screen: Denies threats or abuse. Denies injuries from another. Nutritional screening: No deficits noted. Tuberculosis screening: No symptoms or risk factors identified. Sepsis Screening: . Infection: Patient has a negative screen for severe sepsis based on infection criteria. SIRS - Systemic Inflammatory Response Syndrome: 2 or more indicates positive screen: Patient has a negative screen for severe sepsis based on SIRS criteria. Assessment: 10:27 Also complains of shortness of breath. Pain: Denies pain. Neuro: No deficits noted. ld2 Level of Consciousness is awake, alert, obeys commands, Oriented to person, place, time, situation, Crude Tester are equal bilaterally Moves all extremities. Full function Gait is unsteady, baseline unsteady on feet.. Speech is normal, Facial symmetry appears normal, Facial symmetry: tongue is midline, Pupils are PERRLA, Intact. Cardiovascular: Reports fatigue, shortness of breath, Heart tones S1 S2 present Capillary refill < 3 seconds in bilateral fingers Pulses are 2+ in right radial artery and left radial artery Chest pain is denied. Respiratory: Reports shortness of breath at rest on exertion Pt states having cough and SOB this AM. Pt denies productive cough, fever, or CP. States she believes "this is a COPD flare". Pt is speaking on full sentences and 98% on room air. Airway is patent Trachea midline Respiratory effort is even, unlabored, Respiratory pattern is regular, symmetrical, Breath sounds are clear bilaterally. Onset: The symptoms/episode began/occurred this morning. GI: No deficits noted. No signs and/or symptoms were reported involving the gastrointestinal system. Derm: No deficits noted. No signs and/or symptoms reported regarding the dermatologic system. Musculoskeletal: No deficits noted. No signs and/or symptoms reported regarding the musculoskeletal system. 11:30 Reassessment: Patient appears in no apparent distress at this time. Patient and/or ph family updated on plan of care and expected duration. Pain level reassessed. Patient is alert, oriented x 3, equal unlabored respirations, skin warm/dry/pink. 12:55 Reassessment: Patient appears in no apparent distress at this time. Patient and/or ph family updated on plan of care and expected duration. Pain level reassessed. Patient is alert, oriented x 3, equal unlabored respirations, skin warm/dry/pink. Vital Signs: 09:55 BP 124 / 56; Pulse 67; Resp 20; Temp 97.9; Pulse Ox 99% on R/A; Weight 204.12 kg; ll1 Height 5 ft. 1 in. ; 10:31 BP 119 / 77; Pulse 72; Resp 20; Pulse Ox 94% on R/A; Pain 0/10; ld2 11:13 BP 98 / 60; Pulse 72; Resp 18; Pulse Ox 100% on R/A; Pain 0/10; ld2 12:24 BP 112 / 72; Pulse 71; Resp 16; Pulse Ox 99% on R/A; Pain 0/10; ld2 14:10 BP 97 / 58; Pulse 77; Resp 18; Pulse Ox 100% on R/A; Pain 0/10; ld2 09:55 Body Mass Index 85.03 (204.12 kg, 154.94 cm) ll1 10:31 Pain Scale: Adult ld2 11:13 Pain Scale: Adult ld2 12:24 Pain Scale: Adult ld2 14:10 Pain Scale: Adult ld2 [place] Coma Score: 10:31 Eye Response: spontaneous(4). Motor Response: obeys commands(6). Verbal Response: ld2 oriented(5). Total: 15. 11:13 Eye Response: spontaneous(4). Motor Response: obeys commands(6). Verbal Response: ld2 oriented(5). Total: 15. 12:24 Eye Response: spontaneous(4). Motor Response: obeys commands(6). Verbal Response: ld2 oriented(5). Total: 15. 14:10 Eye Response: spontaneous(4). Motor Response: obeys commands(6). Verbal Response: ld2 oriented(5). Total: 15. ED Course: 09:44 Patient arrived in ED. mr 09:44 Adriano Gustafson MD is Attending Physician. rt 09:44 Amparo Cramer is Private Physician. mr 09:46 Arm band placed on Patient placed in an exam room, in a wheelchair. ll1 09:57 Triage completed. ll1 10:03 Deloris Almanzar, RN is Primary Nurse. ph 10:16 EKG done, by ED staff. ld2 10:27 Inserted saline lock: 22 gauge in right hand, using aseptic technique. Blood collected. ld2 10:51 XRAY Chest (1 view) In Process Unspecified. EDMS 12:23 Shoaib Santos is Hospitalizing Provider. rt 12:24 Patient has correct armband on for positive identification. Placed in gown. Bed in low ph position. Call light in reach. Side rails up X 1. Client placed on continuous cardiac and pulse oximetry monitoring. NIBP monitoring applied. senior mechanical engineer on. Door closed. Noise minimized. Warm blanket given. PO fluids given. 12:55 No provider procedures requiring assistance completed. ph Administered Medications: 11:10 Drug: Aspirin PO 325 mg PO once Route: PO; ld2 12:25 Follow up: Response: No adverse reaction; No change in condition ld2 Medication: 12:25 VIS not applicable for this client. ph Outcome: 12:23 Decision to Hospitalize by Provider. rt 14:54 Patient left the ED. ph Signatures: Dispatcher [employer] EDNE Pedro PabloDiana, Reg Reg Deloris Almanzar, JADA ELIAS ph Daniel Tamayo RN RN ll1 Adriano Gustafson MD MD rt Nguyen Lugo RN RN ld2 Corrections: (The following items were deleted from the chart) 10:00 09:55 BP 124 / 56; Pulse 67bpm; Resp 20bpm; Temp 97.9F; 204.12 kg; Height 5 ft. 1 in.; ll1 BMI: 85.0; ll1
--- NOTE | 2023-11-06 12:38 | P.HP ---
Certification for Inpatient Patient admitted to: Observation With expected LOS: <2 Midnights Patient will require the following post-hospital care: None Practitioner: I am a practitioner with admitting privileges, knowledge of patient current condition, hospital course, and medical plan of care. Services: Services provided to patient in accordance with Admission requirements found in Title 42 Section 412.3 of the Code of Federal Regulations Patient History Date of Service: 11/06/23 Reason for admission: chest pain r/o History of Present Illness: Sena Wu is a 58 year old female with Pmhx arthritis, COPD, depression, HTN, obesity who presents to the ED with chief compliant of SOB and intermittent chest pain that started this morning. She denies any cardiac history in the past. She is unsure if she is having acid reflux discomfort. She does report anxiety while she sleeps, realize that she has sleep apnea but has not been tested. She just received insurance and will be able to visit the doctor soon. On examination she is experiencing intermittent dull chest pain, lung sounds are clear, no acute distress, and on room air. She reports coughing due to COPD. Initial vitals BP 124 / 56; Pulse 67; Resp 20; Temp 97.9; Pulse Ox 99% on R/A. Laboratory evaluation Troponin <3.0, BNP 49, otherwise unremarkable. EKG reprots "Rate is 77 beats/min. Rhythm is regular, Normal Sinus Rhythm with No ectopy. QRS Anselmo is Normal. NC interval is normal. QRS interval is normal. QT interval is normal. T waves are Normal. No ST changes noted." Chest xray reports "No acute cardiopulmonary disease." Sena will be admitted to hospitalist service for further evaluation of chest pain r/o ACS, Dr. Klein consulted. Allergies acetaminophen Allergy (Verified 11/06/23 15:32) tramadol Allergy (Verified 11/06/23 15:32) codeine [Codeine] Adverse Reaction (Intermediate, Verified 12/19/12 13:57) "GO CRAZY" diphenhydramine HCl [From Benadryl] Adverse Reaction (Intermediate, Verified 12/19/12 13:57) HALLUCINATE - Past Medical/Surgical History -: Hypertension -: Diabetes mellitus -: COPD -: Asthma -: Vitamin D deficiency -: Depression -: Obesity Past Surgical History: Reviewed- Non-Contributory - Family History Family History: Reviewed- Non-Contributory - Social History Smoking Status: Never smoker Alcohol use: No CD- Drugs: No Caffeine use: Yes Review of Systems Respiratory: Cough, Shortness of Breath Cardiovascular: Chest Pain Physical Examination - Physical Exam General: Alert, In no apparent distress, Oriented x3, Obese (morbid) HEENT: Atraumatic, Normocephalic, PERRLA Neck: Supple, 2+ carotid pulse no bruit Respiratory: Clear to auscultation bilaterally, Normal air movement Cardiovascular: Regular rate/rhythm, Normal S1 S2, Edema Capillary refill: <2 Seconds Gastrointestinal: Normal bowel sounds, Soft and benign, No tenderness, Distended (obese) Musculoskeletal: No contractures Integumentary: No rashes Neurological: Normal speech, Normal tone - Studies Laboratory Data (last 24 hrs) 11/06/23 11/06/23 10:50 10:24 WBC 9.80 Hgb 15.1 H Hct 46.1 H Plt Count 250 Sodium 134 L Potassium 4.4 BUN 17 Creatinine 1.07 H Glucose 99 Magnesium 2.0 Total Bilirubin 1.2 H AST 13 L ALT 20 Alkaline Phosphatase 80 Assessment and Plan - Plan Assessment and plan Chest pain rule out ACS -Chest xray reports "No acute cardiopulmonary disease." -EKG reprots "Rate is 77 beats/min. Rhythm is regular, Normal Sinus Rhythm with No ectopy. QRS Anselmo is Normal. NC interval is normal. QRS interval is normal. QT interval is normal. T waves are Normal. No ST changes noted." -Troponin <3.0, <3.0, serial pending -Aspirin given in the ED -aspirin and statin daily - pain control -nitroglycerin PRN -ECHO ordered -Continuous telemetry History of COPD History of hypertension History of arthritis History of depression -Continue home medication DVT PPx Lovenox Full code LOS 2 days Discharge Plan: Home Plan to discharge in: 48 Hours - Advance Directives Does patient have a Living Will: No Does patient have a Durable POA for Healthcare: No
[2023-11-06] MEDS ORDERED: NITROGLYCERIN 0.4 MG/TAB SL PRN (13:15)
[2023-11-06 16:09] VITALS: BMI 85.0
[2023-11-06] MEDS: HEPARIN 5000 UNIT/ML 1 ML VIAL SQ SCH (16:25)
[2023-11-06 18:46] LABS: Thyroid Stimulating Hormone 3.17 uIU/mL (0.358-3.740)
[2023-11-07 02:15] LABS: Absolute Basophils 0.2 K/uL (0-0.5); Absolute Eosinophils 0.3 K/uL (0-0.5); Absolute Lymphocytes (CBC) 2.9 K/uL (0.7-4.9); Absolute Monocytes 0.7 K/uL (0.1-1.3); Absolute Neutrophil 8.8 K/uL (1.8-8.0); Basophils % 1.4 % (0-1.3); Eosinophils % 2.2 % (0-4.4); Hematocrit 42.5 % (36.0-45.0); Hemoglobin 13.7 g/dL (12.0-15.0); Lymphocytes % 22.5 % (15.3-44.8); MCH 27.9 pg (27.0-35.0); MCHC 32.3 g/dL (32.0-36.0); MCV 86.4 fL (80-100); MPV 8.8 fL (7.6-11.3); Monocytes % 5.5 % (3.3-12.3); Neutrophils % 68.4 % (41.7-73.7); Platelets 251 thou/uL (152-406); RBC Red Blood Cell Count 4.92 M/uL (3.86-4.86); Red Cell Distribution Width 14.5 % (12.1-15.2)
[2023-11-07 02:27] LABS: Anion Gap 8.3 mEq/L (5.0-15.0); Potassium 4.3 mEq/L (3.5-5.1)
[2023-11-07 09:58] VITALS: BP 105/59; TEMP 97.1
[2023-11-07 09:59] VITALS: O2SAT 93
--- NOTE | 2023-11-07 09:59 | P.DS ---
Admission Date: 11/06/23 Discharge Date: 11/07/23 Disposition: ROUTINE DISCHARGE Discharge Condition: GOOD Reason for Admission: chest pain r/o Brief History of Present Illness: Diagnosis Chest pain rule out ACS Morbid Obesity History of COPD History of hypertension History of arthritis History of depression HPI 11/06/23 Sena Wu is a 58 year old female with Pmhx arthritis, COPD, depression, HTN, obesity who presents to the ED with chief compliant of SOB and intermittent chest pain that started this morning. She denies any cardiac history in the past. She is unsure if she is having acid reflux discomfort. She does report anxiety while she sleeps, realize that she has sleep apnea but has not been tested. She just received insurance and will be able to visit the doctor soon. On examination she is experiencing intermittent dull chest pain, lung sounds are clear, no acute distress, and on room air. She reports coughing due to COPD. Initial vitals BP 124 / 56; Pulse 67; Resp 20; Temp 97.9; Pulse Ox 99% on R/A. Laboratory evaluation Troponin <3.0, BNP 49, otherwise unremarkable. EKG reprots "Rate is 77 beats/min. Rhythm is regular, Normal Sinus Rhythm with No ectopy. QRS [place] is Normal. FL interval is normal. QRS interval is normal. QT interval is normal. T waves are Normal. No ST changes noted." Chest xray reports "No acute cardiopulmonary disease." Sena will be admitted to hospitalist service for further evaluation of chest pain r/o ACS, Dr. Klein consulted. Hospital Course: Sena Wu is a pleasant 58 year old female with a past medical history significant for arthritis, COPD, depression, HTN, obesity who was admitted to the [facility] on 11/06/23 for chest pain rule out. Sena Wu presented to the ED with chief complaint of intermittent dull chest pain. Troponins remained negative, EKG was negative for ST abnormalities. Dr. Klein consulted and recommended follow up for continued cardiac management. Please consider weight loss with strict calorie intake. Provide appropriate protein and vegetables with each meals to increase vitamin and mineral content. Follow up with your PCP concerning meeting with a icu nurse/java xml developer for clear direction for weight loss. Is tolerating p.o. diet, chest pain relieved, feeling better, on room air with satisfactory oxygenation, and hemodynamically stable for discharge. On 11/07/23, Sena Wu was seen on morning rounds and deemed medically stable for discharge. Sena was discharged with instructions to schedule follow-up appointments with PCP and Dr. Klein. The patient was given the opportunity to ask questions and reported no further questions. Furthermore, all questions were answered to the best of my ability. A copy of this discharge summary will be sent to the above providers to facilitate continuity of care. Physical Exam General: AAOx3, NAD, Obese (morbid) HEENT: Atraumatic, Normocephalic, PERRLA Neck: Supple, 2+ carotid pulse no bruit Respiratory: Clear to auscultation bilaterally, Normal air movement Cardiovascular: Regular rate/rhythm, Normal S1 S2, Edema, no murmur noted Capillary refill: <2 Seconds Gastrointestinal: Normal bowel sounds, Soft and benign on palpation, No tenderness, Distended (obese) Musculoskeletal: No contractures Integumentary: No rashes Neurological: Normal speech, Normal tone Vital Signs/Physical Exam: Temp Pulse Resp BP Pulse Ox 97.5 F 81 16 103/53 L 93 11/07/23 04:00 11/07/23 04:00 11/07/23 04:00 11/07/23 04:00 11/07/23 04:00 Laboratory Data at Discharge: WBC 12.90 thou/uL (4.3-10.9) H 11/07/23 01:55 Hgb 13.7 g/dL (12.0-15.0) D 11/07/23 01:55 Hct 42.5 % (36.0-45.0) 11/07/23 01:55 Plt Count 251 thou/uL (152-406) 11/07/23 01:55 Sodium 135 mEq/L (136-145) L 11/07/23 01:55 Potassium 4.3 mEq/L (3.5-5.1) 11/07/23 01:55 BUN 26 mg/dL (7-18) H 11/07/23 01:55 Creatinine 1.48 mg/dL (0.55-1.02) H 11/07/23 01:55 Glucose 128 mg/dL (74-106) H 11/07/23 01:55 Phosphorus 4.0 mg/dL (2.5-4.9) 11/07/23 01:55 Magnesium 2.0 mg/dL (1.6-2.4) 11/07/23 01:55 Total Bilirubin 1.2 mg/dL (0.2-1.0) H 11/06/23 10:50 AST 13 U/L (15-37) L 11/06/23 10:50 ALT 20 U/L (13-56) 11/06/23 10:50 Alkaline Phosphatase 80 U/L (45-117) 11/06/23 10:50 Triglycerides 173 mg/dL (<150) H 11/07/23 01:55 Cholesterol 171 mg/dL (<200) 11/07/23 01:55 HDL Cholesterol 44 mg/dL (40-60) 11/07/23 01:55 Cholesterol/HDL Ratio 3.89 11/07/23 01:55 Home Medications: Solifenacin Succinate [Vesicare] 1 tab PO DAILY 11/07/23 lisinopriL [Lisinopril] 1 tab PO DAILY 11/07/23 Physician Discharge Instructions: Sena Wu presented to the ED with chief complaint of intermittent dull chest pain. Troponins remained negative, EKG was negative for ST abnormalities. Dr. Klein consulted and recommended follow up for continued cardiac management. Please consider weight loss with strict calorie intake. Provide appropriate protein and vegetables with each meals to increase vitamin and mineral content. Follow up with your PCP concerning meeting with a icu nurse/java xml developer for clear direction for weight loww. 1. Please call and schedule a follow-up appointment with your PCP in 3-5 days - Please follow-up with your PCP for medication refills/adjustments 2. Please call and schedule a follow-up appointment with Dr. Klein in two week for continued monitoring 3. Continue heart healthy diet 4. fall precuations, use safe transfer and ambulation to prevent falls 5. Return to the ED if symptoms worsen Diet: AHA Activity: Fall precautions Followup: Lorne Klein MD [ACTIVE - CAN ADMIT] - Amparo Cramer PA [Primary Care Provider] -
[2023-11-07] MEDS ORDERED: PNEUMOCOCCAL VACCINE 0.5 ML IMVAC ONE (12:00)
--- NOTE | 2023-11-07 23:07 | CON ---
Date of Consultation: 11/07/2023 Reason For Consultation: Chest pain. History Of Present Illness: A 58-year-old female, morbid obesity, 450 pounds; COPD; hypertension; de pression, presented with shortness of breath and intermittent chest pain that is on the right side an d sometimes on the left side and not related to exertion. Patient has since admission no further kristie st pain. Her cardiac enzymes have been negative. Past Medical History: As outlined above in the HPI. Medications: Refer reconciliation sheet for detailed list. Allergies: ACETAMINOPHEN, TRAMADOL, CODEINE, DIPHENHYDRAMINE. Family History: No premature coronary artery disease or cancer. Social History: She does not smoke or drink. Does not use any drugs. Review of Systems: All systems reviewed and they were negative except as mentioned in HPI. Physical Examination: Vital Signs: Reviewed. Head and Neck: Pupils are equal, reactive to light. Intact eye movements. No JVD. No cervical lym phadenopathy. Neck: Supple. Thyroid is not enlarged. Lungs: Clear to auscultation bilaterally. No rhonchi, rales, or crackles. No accessory muscle use. Heart: Regular rate and rhythm. No extra sounds. Abdomen: Soft, nontender. Bowel sounds positive. No organomegaly. No masses or hernia. No rigidi ty or rebound. Extremities: No edema, clubbing, cyanosis. Intact pulses. Skin: No rash. Neurologic: Alert, awake, oriented x3. No acute focal deficits appreciated. Investigations: Labs were reviewed. Cardiac enzymes x3 are negative. BUN is 26, creatinine 1.48. Assessment/recommendation: 1.Chest pain. Cardiac enzymes are negative. She is very obese, will not fit stress test machine or cath table and her chest pain is atypical. At this point, from cardiac standpoint, no further dania p is needed. Recommend outpatient echo and stress test at the center where they can accommodate her weight. 2.Morbid obesity. Recommended aggressive measures for weight loss. 3.Borderline elevated creatinine. Recommend Nephrology evaluation. SR/MODL Voice ID: [id number] Report ID: [id number]
== END 2023-11-07 09:46 | disposition home or self-care (01) ==
LOC: ER 09:42 → ERHOLD 13:15 → 4TH 14:24
PROVIDERS: ADMIT Internal Medicine; ATTEND Internal Medicine
DX: R07.9 Chest pain, unspecified (principal); J44.9 Chronic obstructive pulmonary disease, unspecified; F32.A Depression, unspecified; E66.9 Obesity, unspecified; M19.90 Unspecified osteoarthritis, unspecified site; F41.9 Anxiety disorder, unspecified; I10 Essential (primary) hypertension; Z88.5 Allergy status to narcotic agent; Z88.6 Allergy status to analgesic agent; Z88.8 Allergy status to other drugs, medicaments and biological substances; Z71.3 Dietary counseling and surveillance
CPT/HCPCS: 85025 ×2; 80048 ×2; 36415 ×2; 83735 ×2; 84100; 80061; 80076; 84443; 83036; 84484 ×3; 84439; 83880; 71045; 99284; J1644 ×3; G0378

== ENCOUNTER 2024-03-05 13:36 | Emergency (ER) | payer OTHER ==
--- NOTE | 2024-03-05 13:51 | EDPHYS ---
Physician Documentation [facility] Name: Sena Wu Age: 59 yrs Sex: Female : 1965 Arrival Date: 03/05/2024 Time: 13:36 Bed 13 Private MD: ED Physician Markie Najera HPI: 03/05 14:10 This 59 yrs old Female presents to ER via EMS with complaints of Bleeding from sb4 belly button. 14:10 The patient presents with cellulitis of the umbilical area. Description: draining, sb4 erythematous, swollen, warm. Onset: The symptoms/episode began/occurred 2 day(s) ago. Possible cause(s): unknown. Associated signs and symptoms: The patient has no apparent associated signs or symptoms. The patient has experienced a previous episode. The patient has been recently seen by a physician: the patient's primary care provider, earlier today, with similar presenting complaints, was given a prescription for antibiotics, couldn't get filled. Historical: - Allergies: 13:45 ACETAMINOPHEN; rs5 13:45 Codeine; rs5 13:45 diphenhydramine HCl; rs5 13:45 tramadol; rs5 - PMHx: 13:45 Depression; COPD; Hypertension; Obesity; Arthritis; rs5 - PSHx: 13:45 None; rs5 - Immunization history:: Adult Immunizations up to date. - Infectious Disease History:: Denies. - Social history:: Smoking status: Patient denies any tobacco usage or history of. ROS: 14:10 Constitutional: Negative for fever, chills, and weight loss, sb4 14:10 Skin: Positive for cellulitis, of the umbilical area, 14:10 All other systems are negative, Exam: 14:10 Head/Face: Normocephalic, atraumatic. Eyes: Extra-ocular motions intact. Periorbital sb4 areas with no swelling, redness, or edema. ENT: Mucous membranes moist. 14:10 Constitutional: The patient appears in no acute distress, alert, awake, obese, 14:10 Skin: cellulitis, that is mild, on the umbilical area, with purulent discharge, Vital Signs: 13:43 BP 112 / 61; Pulse 108; Resp 19; Temp 97.8(O); Pulse Ox 96% on R/A; rs5 14:16 BP 112 / 53; Pulse 99; Resp 18; Pulse Ox 97% ; ll1 MDM: 13:44 Patient medically screened. sb4 14:10 Data reviewed: vital signs, nurses notes, EMS record, and as a result, I will discharge sb4 patient. Counseling: I had a detailed discussion with the patient and/or guardian regarding the historical points, exam findings, and any diagnostic results supporting the discharge/admit diagnosis, the need for outpatient follow up, for definitive care, to return to the emergency department if symptoms worsen or persist or if there are any questions or concerns that arise at home. 03/05 13:52 Order name: Wound Culture sb4 Administered Medications: 14:02 Drug: Cephalexin PO 500 mg PO once Route: PO; ll1 14:18 Follow up: Response: No adverse reaction ll1 14:02 Drug: Trimethoprim-Sulfamethoxazole PO (160 mg-800 mg (DS) 1 tablet PO once Route: PO; ll1 14:18 Follow up: Response: No adverse reaction ll1 14:02 Drug: Ondansetron Oral Disintegrating Tablet Oral Disintegrating Tablet 4 mg PO once ll1 Route: PO; 14:18 Follow up: Response: No adverse reaction; Nausea unchanged ll1 14:02 Drug: Loperamide PO 2 mg PO once Route: PO; ll1 14:18 Follow up: Response: No adverse reaction ll1 Disposition: 17:14 I was immediately available on-site in the Emergency Department for consultation in the ms3 care of the patient. Disposition Summary: 03/05/24 13:50 Discharge Ordered Notes: Location: Home sb4 Problem: new sb4 Symptoms: are unchanged sb4 Condition: Stable sb4 Diagnosis - Cellulitis of umbilicus sb4 Followup: sb4 - With: Emergency Department - When: As needed - Reason: Fever > 102 F, Worsening of condition Discharge Instructions: - Discharge Summary Sheet sb4 - Cellulitis, Adult sb4 Forms: - Antibiotic Education sb4 - Patient Portal Instructions sb4 - Leadership Thank You Letter sb4 Signatures: Dispatcher [employer] Daniel Garcia, RN RN ll1 Markie Najera DO DO ms3 Renetta Gutierrez PA-C PA-C sb4 Danny Matos RN RN rs5
--- NOTE | 2024-03-05 13:51 | ER ---
Nurse's Notes [facility] Name: Sena Wu Age: 59 yrs Sex: Female : 1965 Arrival Date: 03/05/2024 Time: 13:36 Bed 13 Private MD: Diagnosis: Cellulitis of umbilicus Presentation: 03/05 13:43 Chief complaint: EMS states: Pain, redness, and bleeding from belly button x2 days. No rs5 active bleeding noted at this moment. Coronavirus screen: At this time, the client does not indicate any symptoms associated with coronavirus-19. Ebola Screen: No symptoms or risks identified at this time. Initial Sepsis Screen: Does the patient meet any 2 criteria? HR > 90 bpm. Yes Does the patient have a suspected source of infection? No. Patient's initial sepsis screen is negative. Risk Assessment: Do you want to hurt yourself or someone else? Patient reports no desire to harm self or others. Onset of symptoms was March 05, 2024. 13:43 Method Of Arrival: EMS: [facility] rs5 13:43 Acuity: DREW 3 rs5 Historical: - Allergies: 13:45 ACETAMINOPHEN; rs5 13:45 Codeine; rs5 13:45 diphenhydramine HCl; rs5 13:45 tramadol; rs5 - PMHx: 13:45 Depression; COPD; Hypertension; Obesity; Arthritis; rs5 - PSHx: 13:45 None; rs5 - Immunization history:: Adult Immunizations up to date. - Infectious Disease History:: Denies. - Social history:: Smoking status: Patient denies any tobacco usage or history of. Screenin:16 [facility] ED Fall Risk Assessment (Adult) History of falling in the last 3 months, ll1 including since admission No falls in past 3 months (0 pts) Confusion or Disorientation No (0 pts) Intoxicated or Sedated No (0 pts) Impaired Gait Yes (1 pt) Mobility Assist Device Used Yes (1 pt) Altered Elimination No (0 pt) Score/Fall Risk Level 0 - 2 = Low Risk Maintained a safe environment, Hourly rounding (assess needs \T\ fall precautionary measures) done. Abuse screen: Denies threats or abuse. Nutritional screening: No deficits noted. Tuberculosis screening: No symptoms or risk factors identified. Assessment: 14:02 General: Appears uncomfortable, Behavior is calm, cooperative, appropriate for age. ll1 Pain: Complains of pain in belly button Quality of pain is described as aching. GI: Reports pain and drainage from belly button. Derm: Reports blood/pus coming out of belly button. 14:16 Reassessment: No changes from previously documented assessment. Patient and/or family ll1 updated on plan of care and expected duration. Pain level reassessed. Patient is alert, oriented x 3, equal unlabored respirations, skin warm/dry/pink. Vital Signs: 13:43 BP 112 / 61; Pulse 108; Resp 19; Temp 97.8(O); Pulse Ox 96% on R/A; rs5 14:16 BP 112 / 53; Pulse 99; Resp 18; Pulse Ox 97% ; ll1 ED Course: 13:43 Patient arrived in ED. rs5 13:44 Renetta Gutierrez PA-C is PHCP. sb4 13:44 Markie Najera DO is Attending Physician. sb4 13:45 Triage completed. rs5 14:00 Patient placed in an exam room, on a stretcher. ll1 14:02 Wound Culture Sent. ll1 14:10 Wound care: to cellulitis located on umbilical area was dressed with 4X4s, stretch ll1 bandage over 4x4's. 14:17 No provider procedures requiring assistance completed. Patient did not have IV access ll1 during this emergency room visit. 14:17 Patient has correct armband on for positive identification. Bed in low position. Call ll1 light in reach. Provided Education on: ER procedures and process. Cardiac monitoring not applicable on this patient. Administered Medications: 14:02 Drug: Cephalexin PO 500 mg PO once Route: PO; ll1 14:18 Follow up: Response: No adverse reaction ll1 14:02 Drug: Trimethoprim-Sulfamethoxazole PO (160 mg-800 mg (DS) 1 tablet PO once Route: PO; ll1 14:18 Follow up: Response: No adverse reaction ll1 14:02 Drug: Ondansetron Oral Disintegrating Tablet Oral Disintegrating Tablet 4 mg PO once ll1 Route: PO; 14:18 Follow up: Response: No adverse reaction; Nausea unchanged ll1 14:02 Drug: Loperamide PO 2 mg PO once Route: PO; ll1 14:18 Follow up: Response: No adverse reaction ll1 Medication: 14:17 VIS not applicable for this client. 1 Outcome: 13:50 Discharge ordered by . jerrod 14:17 Discharged to home via wheelchair, 1 14:17 Condition: stable 14:17 Discharge instructions given to patient, Instructed on discharge instructions, follow up and referral plans. wound care, Demonstrated understanding of instructions, follow-up care, wound care, 14:20 Patient left the ED. 1 Signatures: Daniel Tamayo RN RN ll1 Renetta Gutierrez PA-C PAJimena sb4 Danny Matos RN RN rs5
[2024-03-05] MEDS ORDERED: LOPERAMIDE HCL 2 MG CAPSULE ONE (13:53)
[2024-03-05] MEDS ORDERED: CEPHALEXIN 250 MG CAP ONE (13:53)
[2024-03-05] MEDS ORDERED: SMZ./TMP. 800/160 MG TABLET ONE (13:54)
[2024-03-05] MEDS ORDERED: ONDANSETRON 4 MG (ODT) TAB ONE (13:54)
[2024-03-05 14:25] VITALS: TEMP 97.8
[2024-03-05 14:27] VITALS: BP 112/53; O2SAT 97
--- OUTSIDE RECORDS SUMMARY | 2024-03-06 14:11 | XMS REPORT | Continuity of Care Document ---
Author Name Unknown Address [address] [facility] [address] [place] [address] [facility] thconnect Address [address] [facility] [address] [place] [address] Care Team Providers Care [employer] Name Role Phone PCP, PATIENT DOES NOT HAVE A Primary Care Physic royce Unavailable Alfred Escobedo Attending Clinician Unavailable MELISSA MATTHEW Attending Clinician Unavailab MELISSA Smith Attending Clinician Unavailab SOFÍA Yanez Attending Clinician Unavailable Nickolas Gutierrez Attending Clinician NICKOLAS SANDOVAL Attending Clinician Unavailable Alfred Escobedo Admitting Clinician Unavailable NICKOLAS SANDOVAL Admitting Clinician Unavailable Physician, No Primary or Family Admitting Clinic royce Unavailable Payers Payer Name Policy Type Policy Number Effective Date Expirati on Date Source [employer] [place] CLASS[place] PREMIUM HMO [id number] 2023 00:00:00 MEDICAID SSI PENDING PENDING 2021 00:00:00 Problems Condition Name Condition Details Condition Category Status Onset Date Resolution Date Last Treatment Date Treating Clinician Comments Source Other general counseling and advice for contracept alvaro management Other general counseling and advice for contracept alvaro management Disease Active 2015-07 00:00: 00 [facility] Knee pain, bilateral Knee pain, bilateral Disease Active 2015-07 00:00: 00 [facility] BV (bacterial vaginosis) BV (bacterial vaginosis) Disease Active 2015-07 017 00:00: 00 [facility] Yeast infection of the skin Yeast infection of the skin Disease Active 2015-07 017 00:00: 00 [facility] Chest pain Chest pain Disease Active 8-30 00:00: 00 [facility] Essential hypertensi on Essential hypertensi on Disease Active 12-28 00:00: 00 Overview: Formattin g of this note might be different from the original. ICD10 Diagnosis Term Throat Cutter Utility [facility] Obstructiv e sleep apnea Obstructiv e sleep apnea Disease Active 12-28 00:00: 00 Overview: Formattin g of this note might be different from the original. ICD10 Diagnosis Term Throat Cutter Utility [facility] Irregular menstrual cycle Irregular menstrual cycle Disease Active 12-28 00:00: 00 [facility] Morbid obesity Morbid obesity Disease Active 5- 00:00: 00 [facility] Allergies, Adverse Reactions, Alerts Allergy Name Allergy Type Status Severity Reaction(s) Onset Date Inactive Date Treating Clinician Comments Source codeine Propensi ty to adverse reaction to drug Active 6-04 00:00: 00 Jordi Bullock Codeine Sulfate - Oral Propensi ty to adverse reaction to drug Active 9-23 00:00: 00 Jordi Bullock [place] - Intraven ous Propensi ty to adverse reaction to drug Active 6-14 00:00: 00 Jordi Bullock n Propensi ty to adverse reaction to drug Active 6-01 00:00: 00 Jordi Bullock MORPHINE DRUG INGREDI Active Hallucinates 3-27 00:00: 00 [facility] Morphine Propensi ty to adverse reaction s Active Hallucinatio ns 3-27 00:00: 00 [facility] Benadryl - Injectio n Propensi ty to adverse reaction to drug Active 3-03 00:00: 00 Jordi Bullock diphenhy dramine DA Active U HALLUCINATIO NS 0 14 00:00: 00 [facility] diphenhy dramine DA Active U 0 14 00:00: 00 [facility] acetamin ophen DA Active MO 0 12 00:00: 00 [facility] tramadol DA Active MO 0 612 00:00: 00 [facility] morphine DA Active MO HIVES 0 12 00:00: 00 [facility] codeine DA Active MO ITCHING 0 12 00:00: 00 [facility] acetamin ophen DA Active MO HIVES 0 12-27 00:00: 00 [facility] tramadol DA Active MO HIVES 0 12-27 00:00: 00 [facility] morphine DA Active MO 0 12-27 00:00: 00 [facility] codeine DA Active MO 0 12-27 00:00: 00 [facility] Acetamin ophen Propensi ty to adverse reaction s Active Itching 12-18 00:00: 00 [facility] Tramadol Propensi ty to adverse reaction s Active Nausea and/or Vomiting 12-18 00:00: 00 [facility] ACETAMIN OPHEN DRUG INGREDI Active ITCHING 12-18 00:00: 00 [facility] TRAMADOL DRUG INGREDI Active N/V 12-18 00:00: 00 [facility] Diphenhy dramine Hcl Propensi ty to adverse reaction s Active Hallucinatio ns 11-16 00:00: 00 [facility] DIPHENHY DRAMINE HCL DRUG INGREDI Active Hallucinates 11-16 00:00: 00 [facility] Codeine Propensi ty to adverse reaction s Active Unknown - See comments 03-15 00:00: 00 [facility] CODEINE DRUG INGREDI Active Unknown-Cmnt 03-15 00:00: 00 [facility] Social History Social Habit Start Date Stop Date Quantity Comments Source Exposure to SARS-CoV-2 (event) Not sure [facility] Alcohol intake 2021-10-11 00:00:00 2021-10-11 00:00:00 0 /d [facility] Tobacco use and exposure 2012-11-16 00:00:00 2012-11-16 00:00:00 Never used [facility] Sex Assigned At 1965 00:00:00 1965 00:00:00 [facility] Smoking Status Start Date Stop Date Source Never smoker [facility] Medications Ordered Medication Name Filled Medication Name Start Date Stop Date Current Medication? Ordering Clinician Indication Dosage Frequency Signature (SIG) Comments Components Source cyclobenzap rine 10 mg tablet 12-19 00:00: 00 Yes 1mg Jordi Bullock meloxicam 15 mg tablet 0 - 00:00: 00 Yes 1mg Jordi Bullock cyclobenzap rine 10 mg tablet -08 00:00: 00 Yes 1mg Jordi Bullock meloxicam 15 mg tablet 0 -08 00:00: 00 Yes 1mg Jordi Bullock lisinopril 20 mg tablet 0 -08 00:00: 00 Yes 1mg Jordi Bullock solifenacin 10 mg tablet 0 -08 00:00: 00 Yes 1mg Jordi Bullock lisinopril 20 mg tablet 0 4-11 00:00: 00 Yes 1mg Jordi Bullock LISINOPRIL 20 MG 2-28 00:00: 00 Yes Jordi Bullock TAKE 1 TABLET BY MOUTH DAILY 2022-07 00:00: 00 Yes 10 Jordi Bullock LISINOPRIL 5 MG 2022-07- 00:00: 00 Yes Jordi Bullock TAKE 1 TABLET BY MOUTH DAILY 2022-07 00:00: 00 11-28 00:00 :00 No 20 Jordi Bullock SULFAMETHOX AZOLE-TMP DS 2022-07- 00:00: 00 Yes Jordi Aroldo Bullock APPLY SPARINGLY TO AFFECTED AREA(S) TWICE DAILY 2022-07 00:00: 00 11-28 00:00 :00 No 2 Jordi Bullock TAKE 1 TABLET TWICE DAILY WITH FOOD. 2022-07 00:00: 00 11-28 00:00 :00 No [id number] Jordi F Kobe TAKE 1 TABLET BY MOUTH DAILY 2022-07 00:00: 00 11-28 00:00 :00 No 20 Jordi F Kobe TAKE 1 TABLET BY MOUTH DAILY 2022-07 00:00: 00 11-28 00:00 :00 No 10 Jordi F Kobe TAKE 1 TABLET BY MOUTH DAILY - 00:00: 00 11-28 00:00 :00 No 20 Jordi F Kobe TAKE 1 TABLET BY MOUTH DAILY - 00:00: 00 11-28 00:00 :00 No 10 Jordi F Kobe LISINOPRIL 20 MG 8- 00:00: 00 11-28 00:00 :00 No Jordi Bullock TAKE 1 TABLET BY MOUTH DAILY - 00:00: 00 11-28 00:00 :00 No 10 Jordi F Kobe TAKE 1 TABLET BY MOUTH DAILY 01-12 00:00: 00 11-28 00:00 :00 No 10 Jordi F Kobe TAKE 1 TABLET EVERY 8 HOURS NEEDED FOR PAIN. 12-22 00:00: 00 11-28 00:00 :00 No 10 Jordijono Bullock TAKE 1 TABLET BY MOUTH DAILY - 00:00: 00 11-28 00:00 :00 No 10 Jordi F Kobe TAKE 1 TABLET BY MOUTH DAILY 5- 00:00: 00 11-28 00:00 :00 No 20 Jordi Bullock INHALE 2 PUFFS TWICE DAILY. RINSE MOUTH AFTER USE. 11-01 00:00: 00 11-28 00:00 :00 No [id number] Jordi Bullock TAKE 1 TABLET BY MOUTH DAILY 11-01 00:00: 00 11-28 00:00 :00 No 10 Jordi Bullock USE 2 SPRAYS IN EACH NOSTRIL ONCE DAILY 4-17 00:00: 00 11-28 00:00 :00 No 50 Jordi Bullock TAKE 1-2 TABLETS BY MOUTH ONCE A DAY 3-21 00:00: 00 11-28 00:00 :00 No 15 Jordi Bullock TAKE 1-2 TABLETS ONCE A DAY 2021-07 2-04 00:00: 00 11-28 00:00 :00 No 15 Jordi Bullock Dose Unknown 9-23 00:00: 00 Yes Jordi Bullock Dose Unknown 8-15 00:00: 00 Yes Jordi Bullock Dose Unknown 8-12 00:00: 00 Yes Jordi Bullock Dose Unknown 812 00:00: 00 Yes Jordi Bullock Myrbetriq 25 mg tablet,exte nded release 14 00:00: 00 Yes 1mg Jordi Bullock lisinopril 20 mg tablet 14 00:00: 00 Yes 1mg Jordi Bullock sertraline 25 mg tablet 14 00:00: 00 Yes 1mg Jordi Bullock amitriptyli ne 50 mg tablet 330 00:00: 00 Yes 1mg Jordi Bullock Dose Unknown 330 00:00: 00 Yes Jordi Bullock Dose Unknown 330 00:00: 00 Yes Jordi Bullock Dose Unknown 330 00:00: 00 Yes 50 Jordi Bullock TAKE ONE (1) CAPSULE(S) BY MOUTH THREE TIMES A DAY UNTIL ALL ARE TAKEN. TAKE WITH FOOD AND DRINK PLENTY OF WATER. 30 00:00: 00 Yes Jordi Bullock Dose Unknown 330 00:00: 00 Yes 15 Jordi Bullock TAKE ONE (1) TABLET(S) BY MOUTH EVERY EIGHT HOURS NEEDED FOR PAIN TAKE WITH FOOD AND DRINK PLENTY OF WATER. 30 00:00: 00 Yes Jordi Bullock ketorolac (TORADOL) injection 30 mg 3 05:45: 00 10-12 04:44 :00 No 30mg 30 mg, Slow IV Push, ONCE, 1 dose, On 10/12/21 at 0045, ALEXIS [facility] aspirin tablet 325 mg 10-12 04:30: 00 10-12 03:46 :00 No 325mg 325 mg, Oral, ONCE, 1 dose, On 10/11/21 at 2330, ALEXIS [facility] Lidocaine Viscous 2 % mucosal solution 09-25 00:00: 00 Yes 15% Jordi Bullock azithromyci n 250 mg tablet 09-21 00:00: 00 Yes mg Jordi Bullock benzonatate 200 mg capsule 09-21 00:00: 00 Yes 1mg Jordi Bullock Dose Unknown 09-21 00:00: 00 Yes Jordi Bullock Dose Unknown 09-21 00:00: 00 Yes Jordi Bullock Augmentin 500 mg-125 mg tablet 09-19 00:00: 00 Yes 1mg Jordi Bullock prednisone 20 mg tablet 09-19 00:00: 00 Yes mg Jordi Bullock TAKE ONE (1) TABLET(S) BY MOUTH TWICE A DAY. 09-19 00:00: 00 Yes Jordi Bullock Bromfed DM 2 mg-30 mg-10 mg/5 mL oral syrup 09-17 00:00: 00 Yes 10mg/5 mL Jordi Bullock Dose Unknown 09-17 00:00: 00 Yes Jordi F Kobe Dose Unknown 09-17 00:00: 00 Yes Jordi F Kobe Dose Unknown 09-17 00:00: 00 Yes Jordi F Kobe Dose Unknown 09-17 00:00: 00 Yes Jordi F Kobe Dose Unknown 09-17 00:00: 00 Yes Jordi F Kobe Dose Unknown 09-17 00:00: 00 Yes Jordi F Kobe Dose Unknown 09-17 00:00: 00 Yes Jordi F Kobe Dose Unknown 3 00:00: 00 Yes Jordi F Kobe Dose Unknown 08-11 00:00: 00 Yes Jordi F Kobe Dose Unknown 0 1-25 00:00: 00 Yes Jordi Bullock Dose Unknown 0 1-25 00:00: 00 Yes Jordi Bullock Dose Unknown 2020-07 0-18 00:00: 00 Yes Jordi Bullock amitriptyli ne 50 mg tablet 0 9-20 00:00: 00 Yes 1mg Jordi Bullock Dose Unknown 0 9-20 00:00: 00 Yes Jordi Bullock Dose Unknown 0 9- 00:00: 00 Yes Jordi Bullock Dose Unknown 0 - 00:00: 00 Yes Jordi Bullock Dose Unknown 0 - 00:00: 00 Yes Jordi Bullock lisinopril 20 mg tablet 0 - 00:00: 00 Yes 1mg Jordi Bullock Dose Unknown 0 - 00:00: 00 Yes Jordi Bullock Dose Unknown 0 - 00:00: 00 Yes Jordi Bullock Dose Unknown 0 4-23 00:00: 00 Yes Jordi Bullock sertraline 50 mg tablet 0 4-10 00:00: 00 Yes 1mg Jordi Bullock Dose Unknown 0 4-02 00:00: 00 Yes Jordi Bullock Dose Unknown 0 4-02 00:00: 00 Yes Jordi Bullock Dose Unknown 0 3-30 00:00: 00 Yes Jordi Bullock sertraline 50 mg tablet 0 3-27 00:00: 00 Yes 1mg Jordi Bullock sertraline 50 mg tablet 0 2-24 00:00: 00 Yes 1mg Jordi Bullock Dose Unknown 0 1- 00:00: 00 Yes Jordi Bullock sertraline 50 mg tablet 0 1- 00:00: 00 Yes 1mg Jordi Bullock Dose Unknown 2019-07 2- 00:00: 00 Yes Jordi Bullock ProAir HFA 90 mcg/actuati on aerosol inhaler 2019-07 2- 00:00: 00 Yes 12mcg/a ctuatio n Jordi Bullock Dose Unknown 2019-07- 00:00: 00 Yes Jordi Bullock Singulair 10 mg tablet 2019-07 00:00: 00 Yes 1mg Jordi Bullock lisinopril 20 mg tablet 2019-07- 00:00: 00 Yes 1mg Jordi Bullock etodolac 400 mg tablet 2019-07 00:00: 00 Yes 1mg Jordi Bullock gabapentin 100 mg capsule 2019-07 2- 00:00: 00 Yes 1mg Jordi Bullock Flagyl 500 mg tablet 8-05 00:00: 00 Yes 1mg Jordi Bullock fluconazole 150 mg tablet 01-08 00:00: 00 Yes mg Jordi Bullock clindamycin HCl 300 mg capsule -24 00:00: 00 Yes 1mg Jordi Bullock Mobic 7.5 mg tablet 14 00:00: 00 Yes 1mg Jordi Bullock cyclobenzap rine 5 mg tablet 14 00:00: 00 Yes 1mg Jordi Bullock mupirocin 2 % topical ointment -16 00:00: 00 Yes 1% Jordi Bullock lisinopril 20 mg tablet -16 00:00: 00 Yes 1mg Jordi Bullock clindamycin HCl 300 mg capsule 1-16 00:00: 00 Yes 1mg Jordi Bullock benzonatate 200 mg capsule 2017-0718 00:00: 00 Yes 1mg Jordi Bullock Mobic 7.5 mg tablet 2017-07 0 00:00: 00 Yes 1mg Jordi Bullock sertraline 50 mg tablet 2017-07 0- 00:00: 00 Yes 1mg Jordi Bullock Mobic 7.5 mg tablet 2017-07 0 00:00: 00 Yes 1mg Jordi Bullock cyclobenzap rine 5 mg tablet 2017-07 0- 00:00: 00 Yes 1mg Jordi Bullock cyclobenzap rine 5 mg tablet 2017-07 0- 00:00: 00 Yes 1mg Jordi Bullock sertraline 50 mg tablet -16 00:00: 00 Yes 1mg Jordi Bullock lisinopril 20 mg tablet - 00:00: 00 Yes 1mg Jordi Bullock amoxicillin 500 mg tablet 01-26 00:00: 00 Yes 2mg Jordi Bullock metronidazo le 500 mg tablet 01-26 00:00: 00 Yes 1mg Jordi Bullock Mobic 7.5 mg tablet 12-15 00:00: 00 Yes 1mg Jordi Bullock Mobic 7.5 mg tablet 10-20 00:00: 00 Yes 1mg Jordi Bullock fluconazole 100 mg tablet 10-20 00:00: 00 Yes 1mg Jordi Bullock cyclobenzap rine 5 mg tablet 10-20 00:00: 00 Yes 1mg Jordi Bullock meloxicam 15 mg tablet 08-09 00:00: 00 Yes 1mg Jordi Bullock Bactrim DS 800 mg-160 mg tablet 08-09 00:00: 00 Yes 1mg Jordi Bullock lisinopril 20 mg tablet 2016-07 00:00: 00 Yes 1mg Jordi Bullock naproxen 500 mg tablet 2016-07 00:00: 00 Yes 1mg Jordi Bullock meloxicam 15 mg tablet 03-10 00:00: 00 Yes 1mg Jordi Bullock lisinopril 20 mg tablet 03-10 00:00: 00 Yes 1mg Jordi Bullock cyclobenzap rine 10 mg tablet 08-24 00:00: 00 Yes 1mg Jordi Bullock meloxicam 15 mg tablet 08-11 00:00: 00 Yes 1mg Jordi Bullock naproxen 500 mg tablet 08-11 00:00: 00 Yes 1mg Jordi Bullock clotrimazol e (LOTRIMIN) 1 % topical cream 2015-07 00:00: 00 Yes [id number] Apply to area(s) at bedtime. [facility] metroNIDAZO LE (FLAGYL) 500 mg tablet 2015-07 00:00: 00 Yes [id number] 500mg Take 1 tablet by mouth 2 (two) times daily. [facility] aspirin 81 mg chewable tablet 03-18 00:00: 00 Yes 81mg Take 1 tablet by mouth daily. [facility] metoprolol tartrate (LOPRESSOR) 25 mg tablet 03-18 00:00: 00 Yes 12.5mg Take 0.5 tablets by mouth 2 (two) times daily. [facility] ibuprofen (ADVIL) 200 mg tablet 03-18 00:00: 00 Yes 200mg Take 1 tablet by mouth every 6 (six) hours as needed for Pain (scale 1-3). [facility] nystatin (PEDI-DRI) 100,000 unit/gram powder 03-18 00:00: 00 Yes Apply to area(s) 2 (two) times daily. [facility] Immunizations Ordered Immunization Name Filled Immunization Name Date Status Comments Source Influenza, seasonal, inj Influenza, seasonal, inj 2018-05-05 00:00:00 Completed Jordi Bullock Td 2009-03-15 00:00:00 Completed [facility] Vital Signs Vital Name Observation Time Observation Value Comments S ource Systolic blood pressure 2021-10-12 07:05:00 113 mm[Hg] [facility] Diastolic blood pressure 2021-10-12 07:05:00 70 mm[Hg] [facility] Heart rate 2021-10-12 07:05:00 80 /min [facility] Respiratory rate 2021-10-12 07:05:00 22 /min [facility] Oxygen saturation in Arterial blood by Pulse oximetry 2021-10-12 07:05:00 97 /min [facility] Body temperature 2021-10-12 03:29:00 36 [place] Body height 2021-10-12 03:29:00 154.9 cm [facility] Body weight 2021-10-12 03:29:00 171.46 kg [facility] BMI 2021-10-12 03:29:00 71.42 kg/m2 [facility] BP Systolic 2023-12-20 09:19:00 94 mm[Hg] Marty Bullock BP Diastolic 2023-12-20 09:19:00 79 mm[Hg] Jesus Bullock Weight Measured 2023-12-20 09:19:00 423.40 pounds Jordi Bullock Height Measured 2023-12-20 09:19:00 62.00 inches Jordi F Kobe Body Temperature 2023-12-20 09:19:00 98.20 degrees Jordi F Kobe Heart Rate 2023-12-20 09:19:00 94.00 /min Radha en F Kobe Respiratory Rate 2023-12-20 09:19:00 18.00 /min Jordi F Kobe BP Systolic 2023-11-23 10:05:00 95 mm[Hg] Step hen F Kobe BP Diastolic 2023-11-23 10:05:00 62 mm[Hg] Jesus phen F Kobe Weight Measured 2023-11-23 10:05:00 423.40 pounds Jordi F Kobe Height Measured 2023-11-23 10:05:00 62.00 inches Jordi F Kobe Body Temperature 2023-11-23 10:05:00 97.40 degrees Jordi F Kobe Heart Rate 2023-11-23 10:05:00 82.00 /min Radha en F Kobe Respiratory Rate 2023-11-23 10:05:00 18.00 /min Jordi F Kobe BP Systolic 2023-06-20 09:51:00 129 mm[Hg] Step hen F Kobe BP Diastolic 2023-06-20 09:51:00 86 mm[Hg] Jesus phen F Kobe Weight Measured 2023-06-20 09:51:00 418.20 pounds Jordi F Kobe Height Measured 2023-06-20 09:51:00 62.00 inches Jordi F Kobe Body Temperature 2023-06-20 09:51:00 98.10 degrees Jordi F Kobe Heart Rate 2023-06-20 09:51:00 94.00 /min Radha en F Kobe Respiratory Rate 2023-06-20 09:51:00 Jordi F Kobe BP Systolic 2023-05-25 21:50:00 Step hen F Kobe BP Diastolic 2023-05-25 21:50:00 Jesus phen F Kobe Weight Measured 2023-05-25 21:50:00 Jordi F Kobe Height Measured 2023-05-25 21:50:00 Jordi F Kobe Body Temperature 2023-05-25 21:50:00 Jordi F Kobe Heart Rate 2023-05-25 21:50:00 Radha en F Kobe Respiratory Rate 2023-05-25 21:50:00 Jordi F Kobe BP Systolic 2022-12-22 08:31:00 135 mm[Hg] Step hen F Kobe BP Diastolic 2022-12-22 08:31:00 83 mm[Hg] Jesus phen F Kobe Weight Measured 2022-12-22 08:31:00 410.00 pounds Jordi F Kobe Height Measured 2022-12-22 08:31:00 62.00 inches Jordi F Kobe Body Temperature 2022-12-22 08:31:00 97.40 degrees Jordi F Kobe Heart Rate 2022-12-22 08:31:00 Radha en F Kobe Respiratory Rate 2022-12-22 08:31:00 70.00 /min Jordi F Kobe BP Systolic 2022-11-01 09:36:00 142 mm[Hg] Step hen F Kobe BP Diastolic 2022-11-01 09:36:00 77 mm[Hg] Jesus phen F Kobe Weight Measured 2022-11-01 09:36:00 413.80 pounds Jordi F Kobe Height Measured 2022-11-01 09:36:00 62.00 inches Jordi F Kobe Body Temperature 2022-11-01 09:36:00 97.30 degrees Jordi F Kobe Heart Rate 2022-11-01 09:36:00 90.00 /min Radha en F Kobe Respiratory Rate 2022-11-01 09:36:00 Jordi F Kobe BP Systolic 2022-04-15 10:27:00 127 mm[Hg] Step hen F Kobe BP Diastolic 2022-04-15 10:27:00 81 mm[Hg] Jesus phen F Kobe Weight Measured 2022-04-15 10:27:00 397.80 pounds Jordi F Kobe Height Measured 2022-04-15 10:27:00 62.00 inches Jordi F Kobe Body Temperature 2022-04-15 10:27:00 97.90 degrees Jordi F Kobe Heart Rate 2022-04-15 10:27:00 93.00 /min Radha en F Kobe Respiratory Rate 2022-04-15 10:27:00 19.00 /min Jordi F Kobe BP Systolic 2021-12-29 13:53:00 137 mm[Hg] Step hen F Kobe BP Diastolic 2021-12-29 13:53:00 83 mm[Hg] Jesus phen F Kobe Weight Measured 2021-12-29 13:53:00 394.20 pounds Jordi F Kobe Height Measured 2021-12-29 13:53:00 62.00 inches Jordi F Kobe Body Temperature 2021-12-29 13:53:00 97.20 degrees Jordi F Kobe Heart Rate 2021-12-29 13:53:00 100.00 /min Step hen F Kobe Respiratory Rate 2021-12-29 13:53:00 Jordi F Kobe BP Systolic 2021-10-14 09:24:00 156 mm[Hg] Step hen F Kobe BP Diastolic 2021-10-14 09:24:00 90 mm[Hg] Jesus phen F Kobe Weight Measured 2021-10-14 09:24:00 387.40 pounds Jordi F Kobe Height Measured 2021-10-14 09:24:00 62.00 inches Jordi F Kobe Body Temperature 2021-10-14 09:24:00 97.10 degrees Jordi F Kobe Heart Rate 2021-10-14 09:24:00 104.00 /min Step hen F Kobe Respiratory Rate 2021-10-14 09:24:00 Jordi F Kobe BP Systolic 2021-09-21 11:38:00 127 mm[Hg] Step hen F Kobe BP Diastolic 2021-09-21 11:38:00 79 mm[Hg] Jesus phen F Kobe Weight Measured 2021-09-21 11:38:00 373.60 pounds Jordi F Kobe Height Measured 2021-09-21 11:38:00 62.00 inches Jordi F Kobe Body Temperature 2021-09-21 11:38:00 97.30 degrees Jordi F Kobe Heart Rate 2021-09-21 11:38:00 109.00 /min Step hen F Kobe Respiratory Rate 2021-09-21 11:38:00 Jordi F Kobe BP Systolic 2021-09-17 14:06:00 Step hen F Kobe BP Diastolic 2021-09-17 14:06:00 Jesus phen F Kobe Weight Measured 2021-09-17 14:06:00 375.00 pounds Jordi F Kobe Height Measured 2021-09-17 14:06:00 62.00 inches Jordi F Kobe Body Temperature 2021-09-17 14:06:00 Jordi F Kobe Heart Rate 2021-09-17 14:06:00 Radha Bullock Respiratory Rate 2021-09-17 14:06:00 Jordi Bullock Procedures Procedure Date / Time Performed Performing Clinician Source EKG-12 LEAD 2021-10-12 07:00:52 Nickolas Sandoval [facility] TROPONIN I 2021-10-12 06:23:00 Nickolas Sandoval [facility] URINALYSIS 2021-10-12 03[facility]52[facility]12 [facility] COMP. METABOLIC PANEL ([id number]) 2021-10-12 03:45:00 Nickolas Sandoval [facility] CBC WITH DIFF 2021-10-12 03:45:00 Nickolas Sandoval [facility] PROTHROMBIN TIME / INR 2021-10-12 03:45:00 Lilian Sandoval [facility] N-TERMINAL PRO-BNP 2021-10-12 03:45:00 Mckenna Sandoval [facility] XR CHEST 1 VW 2021-10-12 03:40:55 Nickolas Sandoval [facility] NOTICE OF PRIVACY PRACTICES 2021-10-12 03:17:52 Doctor Unassigned, [facility] CONSENT/REFUSAL FOR DIAGNOSIS AND TREATMENT 2021-10-12 03:17:36 Doctor Unassigned, [facility] [id number] 2020-12-29 00:00:00 LUMAY.01 [facility] [id number] 2020-12-29 00:00:00 BOHAMY.01 [facility] [id number] Ecg Routine Ecg W/least 12 Lds W/i r 2018-01-26 00:00:00 Jordi Bullock Encounters Start Date/Time End Date/Time Encounter Type Admission Type Attending Clinicians Care Facility Care Department Encounter ID Source 2020-12-27 18:02:00 Inpatient EM Alfred Escobedo [facility]02 [id number] [facility] 2024-03-05 15:30:00 2024-03-05 15:30:00 Outpatient MELISSA ROY [facility] [id number] [facility] 2024-03-05 08:58:16 2024-03-05 08:58:16 Outpatient SFA [id number] [id number] Jordi Bullock 2023-12-20 00:00:00 2023-12-20 00:00:00 Outpatient Visit SFA [id number] Jordi Bullock 2023-12-14 10:34:56 2023-12-14 10:34:56 Outpatient SFA SFA [id number] Jordi Bullock 2023-12-07 08:40:35 2023-12-07 08:40:35 Outpatient SFA SFA [id number] Jordi Bullock 2023-11-25 10:29:38 2023-11-25 10:29:38 Outpatient SFA SFA [id number] Jordi Bullock 2023-11-23 10:04:20 2023-11-23 10:04:20 Outpatient SFA SFA [id number] Jordi Kendrick Kobe 2023-11-23 00:00:00 2023-11-23 00:00:00 Outpatient Visit SFA [id number] Jordi Bullock 2023-11-23 00:00:00 2023-11-23 00:00:00 Outpatient Visit SFA [id number] Jordi Bullock 2023-08-24 13:45:48 2023-08-24 13:45:48 Outpatient SFA SFA [id number] Jordi Kendrick Kobe 2023-06-22 10:45:44 2023-06-22 10:45:44 Outpatient SFA [id number] [id number] Jordi Bullock 2023-06-20 09:42:48 2023-06-20 09:42:48 Outpatient SFA [id number] [id number] Jordi Bullock 2022-12-22 08:45:06 2022-12-22 08:45:06 Outpatient [facility] [id number] Jordi Bullock 2022-01-11 10:00:00 2022-01-11 10:00:00 Outpatient SOFÍA SPIVEY [facility] [id number] [facility] 2021-11-17 15:00:00 2021-11-17 15:00:00 Outpatient Christoph [facility] [id number] [facility] 2021-11-17 15:00:00 2021-11-17 15:00:00 Outpatient Christoph WEIR [facility] [id number] [facility] 2021-10-11 22:31:00 2021-10-12 02:22:00 Emergency SandovalNickolas young [facility] [id number] [facility] 2021-10-11 22:31:00 2021-10-12 02:22:00 Emergency X NICKOLAS SANDOVAL [facility] E[facility] [id number] [facility] 2020-12-27 21:42:00 2020-12-27 21:42:00 Outpatient Alfred Escobedo [facility] [id number] [address] [place] [address] Results Test Description Test Time Test Comments Results Result Co mments Source HEMOGLOBIN [id number] 05:10:56* Test Item Value Reference Range Interpretation Comme nts HEMOGLOBIN A1c (test code = 49202) 6.0 % 4.2-5.6 H CITIZEN OF [employer] GUIDELINES FOR HGB A1C: PREDIABETES/INCREASED RISK . . . . . . . 5.7-6.4% DIAGNOSIS OF DIABETES . . . . . . . . . >=6.5% WITH CONFIRMATION OR APPROPRIATE SYMPTOMS NOTE: ASSAY MAY BE AFFECTED BY HEMOGLOBINOPATHIES (SICKLE CELL ANEMIA, S-C DISEASE, OTHERS) OR ARTIFICIALLY LOWERED BY DECREASED RED CELL SURVIVAL (HEMOLYTIC ANEMIAS, BLOOD LOSS, ETC.). CONSIDER ALTERNATE TESTING OR LABORATORY CONSULTATION. UNLESS OTHERWISE INDICATED, ALL TESTING PERFORMED AT [facility] [address] [place] [id number] SALES ENGINEER ACCOUNT MANAGER: BEBA MACIEL M.D. CLIA NUMBER [id number] [facility] [place]. [id number] COMPREHENSIVE METABOLIC [id number] 05:03:28* Test Item Value Reference Range Interpretation Comme nts GLUCOSE (test code = 2217) 88 MG/DL 70-99 BUN (test code = 2208) 15 MG/DL 6-20 CREATININE (test code = 2214) 1.00 MG/DL 0.60-1.30 eGFR (2020 CKD-EPI) (test co de = 31739) 66 ML/MIN/1.73 >60 CALC BUN/CREAT (test code = 2235) 15 RATIO 6-28 SODIUM (test code = 2231) 136 MEQ/L 133-146 POTASSIUM (test code = 2228) 5.2 MEQ/L 3.5-5.4 CHLORIDE (test code = 2215) 99 MEQ/L 95-107 CARBON DIOXIDE (test code = 2206) 28 MEQ/L 19-31 CALCIUM (test code = 2209) 9.7 MG/DL 8.5-10.5 PROTEIN, TOTAL (test code = 2229) 6.5 G/DL 6.1-8.3 ALBUMIN (test code = 2201) 4.0 G/DL 3.5-5.2 CALC GLOBULIN (test code = 2240) 2.5 G/DL 1.9-3.7 CALC A/G RATIO (test code = 2234) 1.6 RATIO 1.0-2.6 BILIRUBIN, TOTAL (test code = 2207) 0.8 MG/DL <=1.2 ALKALINE PHOSPHATASE (test code = 2204) 86 U/L 40-136 AST (test code = 2218) 15 U/L 9-40 ALT (test code = 2219) 16 U/L 5-40 CBC W/AUTO DIFF WITH [id number] 03:04:15* Test Item Value Reference Range Interpretation Comme nts WBC (test code = 1001) 9.2 K/UL 3.5-11.0 RBC (test code = 1002) 5.13 M/UL 3.80-5.40 HEMOGLOBIN (test code = 1003) 14.6 G/DL 11.5-15.5 HEMATOCRIT (test code = 1004) 44.2 % 34.0-45.0 MCV (test code = 1005) 86.2 fL 80.0-99.0 MCH (test code = 1006) 28.5 PG 25.0-33.0 MCHC (test code = 1007) 33.0 G/DL 31.0-36.0 RDW (test code = 1038) 13.1 % 11.5-15.0 NEUTROPHILS (test code = 1008) 67.3 % LYMPHOCYTES (test code = 1010) 23.5 % MONOCYTES (test code = 1011) 4.9 % EOSINOPHILS (test code = 1012) 2.9 % BASOPHILS (test code = 1013) 0.7 % IMMATURE GRANULOCYTES (test code = 1036) 0.7 % NUCLEATED RBCS (test code = 1065) 0.0 /100 WBC'S See_Comment [Automated MyChecka ge] The system which generated this result transmitted reference range: 0.0. The reference range was not used to interpret this result as normal/abnormal. PLATELET COUNT (test code = 1015) 235 K/UL 130-400 ABSOLUTE NEUTROPHILS (test code = 1066) 6.18 K/UL 1.50-7.50 ABSOLUTE LYMPHOCYTES (test code = 1067) 2.16 K/UL 1.00-4.00 ABSOLUTE MONOCYTES (test code = 1068) 0.45 K/UL 0.20-1.00 ABSOLUTE EOSINOPHILS (test code = 1040) 0.27 K/UL 0.00-0.50 ABSOLUTE BASOPHILS (test code = 1069) 0.06 K/UL 0.00-0.20 ABS IMMATURE GRANULOCYTES (test code = 1020) 0.06 K/UL 0.00-0.10 ABS NUCLEATED RBCS (test code = 03155) 0.00 K/UL 0.00-0.11 COMPREHENSIVE METABOLIC [id number] 00:00:00* Test Item Value Reference Range Interpretation Comme nts GLUCOSE (test code = 2217) 88 MG/DL BUN (test code = 2208) 15 MG/DL CREATININE (test code = 2214) 1.00 MG/DL eGFR (2020 CKD-EPI) (test co de = 62591) 66 ML/MIN/1.73 CALC BUN/CREAT (test code = 2235) 15 RATIO SODIUM (test code = 2231) 136 MEQ/L POTASSIUM (test code = 2228) 5.2 MEQ/L CHLORIDE (test code = 2215) 99 MEQ/L CARBON DIOXIDE (test code = 2206) 28 MEQ/L CALCIUM (test code = 2209) 9.7 MG/DL PROTEIN, TOTAL (test code = 2229) 6.5 G/DL ALBUMIN (test code = 2201) 4.0 G/DL CALC GLOBULIN (test code = 2240) 2.5 G/DL CALC A/G RATIO (test code = 2234) 1.6 RATIO BILIRUBIN, TOTAL (test code = 2207) 0.8 MG/DL ALKALINE PHOSPHATASE (test code = 2204) 86 U/L AST (test code = 2218) 15 U/L ALT (test code = 2219) 16 U/L [facility]ordi Kend[facility] [id number] 00:00:00* Test Item Value Reference Range Interpretation Comme nts WBC (test code = 1001) 9.2 K/UL RBC (test code = 1002) 5.13 M/UL HEMOGLOBIN (test code = 1003) 14.6 G/DL HEMATOCRIT (test code = 1004) 44.2 % MCV (test code = 1005) 86.2 fL MCH (test code = 1006) 28.5 PG MCHC (test code = 1007) 33.0 G/DL RDW (test code = 1038) 13.1 % NEUTROPHILS (test code = 1008) 67.3 % LYMPHOCYTES (test code = 1010) 23.5 % MONOCYTES (test code = 1011) 4.9 % EOSINOPHILS (test code = 1012) 2.9 % BASOPHILS (test code = 1013) 0.7 % IMMATURE GRANULOCYTES (test code = 1036) 0.7 % NUCLEATED RBCS (test code = 1065) 0.0 /100WBC'S PLATELET COUNT (test code = 1015) 235 K/UL ABSOLUTE NEUTROPHILS (test c ode = 1066) 6.18 K/UL ABSOLUTE LYMPHOCYTES (test c ode = 1067) 2.16 K/UL ABSOLUTE MONOCYTES (test cod e = 1068) 0.45 K/UL ABSOLUTE EOSINOPHILS (test c ode = 1040) 0.27 K/UL ABSOLUTE BASOPHILS (test cod e = 1069) 0.06 K/UL ABS IMMATURE GRANULOCYTES (t est code = 1020) 0.06 K/UL ABS NUCLEATED RBCS (test cod e = 08506) 0.00 K/UL Jordi BullockEGFR CREATININE AND [id number] 00:00:00* Test Item Value Reference Range Interpretation Comme nts CYSTATIN-C (test code = 64258) 1.5 MG/L CREATININE (test code = 2214) 1.00 MG/DL eGFR CYS-CR.(2020 CKD-EPI) (test code = 97051) 53 ML/MIN/1.73 Jordi BullockHEMOGLOBIN [id number] 00:00:00* Test Item Value Reference Range Interpretation Comme nts HEMOGLOBIN A1c (test code = 83420) 6.0 % Jordi BullockCOMPREHENSIVE METABOLIC [id number] 00:00:00* Test Item Value Reference Range Interpretation Comme nts GLUCOSE (test code = 2217) 88 MG/DL BUN (test code = 2208) 15 MG/DL CREATININE (test code = 2214) 1.00 MG/DL eGFR (2020 CKD-EPI) (test co de = 70834) 66 ML/MIN/1.73 CALC BUN/CREAT (test code = 2235) 15 RATIO SODIUM (test code = 2231) 136 MEQ/L POTASSIUM (test code = 2228) 5.2 MEQ/L CHLORIDE (test code = 2215) 99 MEQ/L CARBON DIOXIDE (test code = 2206) 28 MEQ/L CALCIUM (test code = 2209) 9.7 MG/DL PROTEIN, TOTAL (test code = 2229) 6.5 G/DL ALBUMIN (test code = 2201) 4.0 G/DL CALC GLOBULIN (test code = 2240) 2.5 G/DL CALC A/G RATIO (test code = 2234) 1.6 RATIO BILIRUBIN, TOTAL (test code = 2207) 0.8 MG/DL ALKALINE PHOSPHATASE (test code = 2204) 86 U/L AST (test code = 2218) 15 U/L ALT (test code = 2219) 16 U/L Jordi BullockCBC W/AUTO [id number] 00:00:00* Test Item Value Reference Range Interpretation Comme nts WBC (test code = 1001) 9.2 K/UL RBC (test code = 1002) 5.13 M/UL HEMOGLOBIN (test code = 1003) 14.6 G/DL HEMATOCRIT (test code = 1004) 44.2 % MCV (test code = 1005) 86.2 fL MCH (test code = 1006) 28.5 PG MCHC (test code = 1007) 33.0 G/DL RDW (test code = 1038) 13.1 % NEUTROPHILS (test code = 1008) 67.3 % LYMPHOCYTES (test code = 1010) 23.5 % MONOCYTES (test code = 1011) 4.9 % EOSINOPHILS (test code = 1012) 2.9 % BASOPHILS (test code = 1013) 0.7 % IMMATURE GRANULOCYTES (test code = 1036) 0.7 % NUCLEATED RBCS (test code = 1065) 0.0 /100WBC'S PLATELET COUNT (test code = 1015) 235 K/UL ABSOLUTE NEUTROPHILS (test c ode = 1066) 6.18 K/UL ABSOLUTE LYMPHOCYTES (test c ode = 1067) 2.16 K/UL ABSOLUTE MONOCYTES (test cod e = 1068) 0.45 K/UL ABSOLUTE EOSINOPHILS (test c ode = 1040) 0.27 K/UL ABSOLUTE BASOPHILS (test cod e = 1069) 0.06 K/UL ABS IMMATURE GRANULOCYTES (t est code = 1020) 0.06 K/UL ABS NUCLEATED RBCS (test cod e = 52311) 0.00 K/UL Jordi BullockEGFR CREATININE AND [id number] 00:00:00* Test Item Value Reference Range Interpretation Comme nts CYSTATIN-C (test code = 51440) 1.5 MG/L CREATININE (test code = 2214) 1.00 MG/DL eGFR CYS-CR.(2020 CKD-EPI) (test code = 81546) 53 ML/MIN/1.73 Jordi BullockHEMOGLOBIN [id number] 00:00:00* Test Item Value Reference Range Interpretation Comme nts HEMOGLOBIN A1c (test code = 77967) 6.0 % Jordi BullockTROPONIN [id number] 06:53:42* Test Item Value Reference Range Interpretation Comments TROPONIN I (test code = 1467580151) 0.003 ng/mL See_Comment [Automated message] The system which [...] of biotin. Lab Interpretation (test code = 50875-6) [facility] [id number] 04:23:15* Test Item Value Reference Range Interpretation Comments TROPONIN I (test code = 7147451885) 0.002 ng/mL See_Comment [Automated message] The system [...] of biotin. Lab Interpretation (test code = 17193-0) [id number] 04:20:14* Test Item Value Reference Range Interpretation Comme nts NT-proBNP (test code = 7338577834) 123 pg/mL See_Comment [Automated message] The system which generated this result transmitted reference range: <=125. The reference range was not used to interpret this result as normal/abnormal. JOSE (test code = JOSE) Biotin has been reported to cause a negative bias, interpret results relative to patient's use of biotin. Lab Interpretation (test code = 08517-0) [facility] ([id number] 04:11:13* Test Item Value Reference Range Interpretation Comme nts NA (test code = 8805651796) 138 mmol/L 135-145 K (test code = 6630533008) 4.5 mmol/L 3.5-5.0 CL (test code = 0613032050) 102 mmol/L 98-108 CO2 TOTAL (test code = 0065128394) 26 mmol/L 23-31 AGAP (test code = 5898939224) 2-16 BUN (test code = 3752475236) 10 mg/dL 7-23 GLUCOSE (test code = 1512577669) 132 mg/dL 70-110 H CREATININE (test code = 2050518852) 0.67 mg/dL 0.50-1.04 TOTAL BILI (test code = 6205905845) 1.1 mg/dL 0.1-1.1 CALCIUM (test code = 9181017896) 9.1 mg/dL 8.6-10.6 T PROTEIN (test code = 6173174456) 6.8 g/dL 6.3-8.2 ALBUMIN (test code = 8174749064) 4.0 g/dL 3.5-5.0 ALK PHOS (test code = 6513598594) 82 U/L 34-122 ALTv (test code = 1742-6) 18 U/L 5-35 AST(SGOT) (test code = 8344629826) 26 U/L 13-40 eGFR (test code = 9330830462) mL/min/1.73m2 JOSE (test code = JOSE) Association [...] imaging tests). Lab Interpretation (test code = 44114-2) [facility] / [id number] 04:08:33* Test Item Value Reference Range Interpretation Comme nts PROTIME PATIENT (test code = 5964-2) See_Comment [Automated BabyWatch] The system which generated this result transmitted reference range: 12.0 - 14.7 Seconds. The reference range was not used to interpret this result as normal/abnormal. INR (test code = 6301-6) Normal INR <1.1; Warfarin Therapeutic range 2.0 to 3.0 or 2.5 to 3.5, depending upon the indications. Lab Interpretation (test code = 66943-6) [facility]CBC [facility] [id number] 04:00:16* Test Item Value Reference Range Interpretation Comme nts WBC (test code = 6690-2) See_Comment [Automated BabyWatch] The system which generated this result transmitted reference range: 4.30 - 11.10 10*3/?L. The reference range was not used to interpret this result as normal/abnormal. RBC (test code = 789-8) See_Comment [Automated [employer]Watch] The system which generated this result transmitted [...] 32.6 g/dL 31.6-35.1 RDW-SD (test code = 55456-8) 41.4 fL 39.0-49.9 RDW-CV (test code = 788-0) 12.9 % 12.0-15.5 PLT (test code = 777-3) See_Comment [Automated MyChecka ge] The system which generated this result transmitted reference range: 166 - 358 10*3/?L. The reference range was not used to interpret this result as normal/abnormal. MPV (test code = 36768-3) 10.0 fL 9.5-12.9 NRBC/100 WBC (test code = 1289198122) See_Comment [Automated me ssage] The system which generated this result transmitted reference range: 0.0 - 10.0 /100 WBCs. The reference range was not used to interpret this result as normal/abnormal. NRBC x10^3 (test code = 3484586221) <0.01 See_Comment [Automated me ssage] The system which generated this result transmitted reference range: 10*3/?L. The reference range was not used to interpret this result as normal/abnormal. GRAN MAT (NEUT) % (test code = 770-8) 68.8 % IMM GRAN % (test code = 0349951763) 0.60 % LYMPH % (test code = 736-9) 22.1 % MONO % (test code = 5905-5) 4.7 % EOS % (test code = 713-8) 3.4 % BASO % (test code = 706-2) 0.4 % GRAN MAT x10^3(ANC) (test code = 6023211118) 6.18 10*3/uL 1.88-7.09 IMM GRAN x10^3 (test code = 2664357634) 0.05 10*3/uL 0.00-0.06 LYMPH x10^3 (test code = 731-0) 1.99 10*3/uL 1.32-3.29 MONO x10^3 (test code = 742-7) 0.42 10*3/uL 0.33-0.92 EOS x10^3 (test code = 711-2) 0.31 10*3/uL 0.03-0.39 BASO x10^3 (test code = 704-7) 0.04 10*3/uL 0.01-0.07 [facility] [id number] 00:00:00* Test Item Value Reference Range Interpretation Comme nts WBC (test code = 1001) 9.2 K/UL RBC (test code = 1002) 5.34 M/UL HEMOGLOBIN (test code = 1003) 15.3 G/DL HEMATOCRIT (test code = 1004) 45.5 % MCV (test code = 1005) 85.2 fL MCH (test code = 1006) 28.7 PG MCHC (test code = 1007) 33.6 G/DL RDW (test code = 1038) 13.2 % NEUTROPHILS (test code = 1008) 64.9 % LYMPHOCYTES (test code = 1010) 22.5 % MONOCYTES (test code = 1011) 7.1 % EOSINOPHILS (test code = 1012) 3.0 % BASOPHILS (test code = 1013) 1.1 % IMMATURE GRANYLOCYTES (test code = 1036) 1.4 % NUCLEATED RBCS (test code = 1065) 0.0 /100WBC'S PLATELET COUNT (test code = 1015) 263 K/UL ABSOLUTE NEUTROPHILS (test c ode = 1066) 5.94 K/UL ABSOLUTE LYMPHOCYTES (test c ode = 1067) 2.06 K/UL ABSOLUTE MONOCYTES (test cod e = 1068) 0.65 K/UL ABSOLUTE EOSINOPHILS (test c ode = 1040) 0.27 K/UL ABSOLUTE BASOPHILS (test cod e = 1069) 0.10 K/UL ABS IMMATURE GRANULOCYTES (t est code = 1020) 0.13 K/UL ABS NUCLEATED RBCS (test cod e = 62010) 0.00 K/UL Jordi BullockFOLIC [id number] 00:00:00* Test Item Value Reference Range Interpretation Comme nts FOLIC ACID (test code = 2695) 10.2 UG/L Jordi BullockVITAMIN D, 25 [id number] 00:00:00* Test Item Value Reference Range Interpretation Comme nts VITAMIN D, 25 OH (test code = 4958) 31 NG/ML Jordi BullockLIPID [id number] 00:00:00* Test Item Value Reference Range Interpretation Comme nts CHOLESTEROL (test code = 2210) 205 MG/DL TRIGLYCERIDES (test code = 2232) 154 MG/DL HDL CHOLESTEROL (test code = 2220) 54 MG/DL CALC LDL CHOL (test code = 2237) 124 MG/DL RISK RATIO LDL/HDL (test cod e = 2238) 2.30 RATIO Jordi BullockHEMOGLOBIN [id number] 00:00:00* Test Item Value Reference Range Interpretation Comme patel HEMOGLOBIN A1c (test code = 44831) 6.0 % Jordi BullockCOMPREHENSIVE METABOLIC [id number] 00:00:00* Test Item Value Reference Range Interpretation Comme nts GLUCOSE (test code = 2217) 101 MG/DL BUN (test code = 2208) 11 MG/DL CREATININE (test code = 2214) 0.74 MG/DL eGFR (2020 CKD-EPI) (test co de = 18562) 96 ML/MIN/1.73 CALC BUN/CREAT (test code = 2235) 15 RATIO SODIUM (test code = 2231) 139 MEQ/L POTASSIUM (test code = 2228) 4.8 MEQ/L CHLORIDE (test code = 2215) 100 MEQ/L CARBON DIOXIDE (test code = 2206) 27 MEQ/L CALCIUM (test code = 2209) 9.8 MG/DL PROTEIN, TOTAL (test code = 2229) 7.1 G/DL ALBUMIN (test code = 2201) 4.2 G/DL CALC GLOBULIN (test code = 2240) 2.9 G/DL CALC A/G RATIO (test code = 2234) 1.4 RATIO BILIRUBIN, TOTAL (test code = 2207) 1.2 MG/DL ALKALINE PHOSPHATASE (test code = 2204) 81 U/L AST (test code = 2218) 25 U/L ALT (test code = 2219) 20 U/L Jordi BullockCBC W/AUTO [id number] 00:00:00* Test Item Value Reference Range Interpretation Comme nts WBC (test code = 1001) 9.2 K/UL RBC (test code = 1002) 5.34 M/UL HEMOGLOBIN (test code = 1003) 15.3 G/DL HEMATOCRIT (test code = 1004) 45.5 % MCV (test code = 1005) 85.2 fL MCH (test code = 1006) 28.7 PG MCHC (test code = 1007) 33.6 G/DL RDW (test code = 1038) 13.2 % NEUTROPHILS (test code = 1008) 64.9 % LYMPHOCYTES (test code = 1010) 22.5 % MONOCYTES (test code = 1011) 7.1 % EOSINOPHILS (test code = 1012) 3.0 % BASOPHILS (test code = 1013) 1.1 % IMMATURE GRANYLOCYTES (test code = 1036) 1.4 % NUCLEATED RBCS (test code = 1065) 0.0 /100WBC'S PLATELET COUNT (test code = 1015) 263 K/UL ABSOLUTE NEUTROPHILS (test c ode = 1066) 5.94 K/UL ABSOLUTE LYMPHOCYTES (test c ode = 1067) 2.06 K/UL ABSOLUTE MONOCYTES (test cod e = 1068) 0.65 K/UL ABSOLUTE EOSINOPHILS (test c ode = 1040) 0.27 K/UL ABSOLUTE BASOPHILS (test cod e = 1069) 0.10 K/UL ABS IMMATURE GRANULOCYTES (t est code = 1020) 0.13 K/UL ABS NUCLEATED RBCS (test cod e = 19187) 0.00 K/UL Jordi BullockFOLIC [id number] 00:00:00* Test Item Value Reference Range Interpretation Comme nts FOLIC ACID (test code = 2695) 10.2 UG/L Jordi BullockVITAMIN D, 25 [id number] 00:00:00* Test Item Value Reference Range Interpretation Comme nts VITAMIN D, 25 OH (test code = 4958) 31 NG/ML Jordi Kendrick KobeLIPID [id number] 00:00:00* Test Item Value Reference Range Interpretation Comme nts CHOLESTEROL (test code = 2210) 205 MG/DL TRIGLYCERIDES (test code = 2232) 154 MG/DL HDL CHOLESTEROL (test code = 2220) 54 MG/DL CALC LDL CHOL (test code = 2237) 124 MG/DL RISK RATIO LDL/HDL (test cod e = 2238) 2.30 RATIO Jordi BullockHEMOGLOBIN [id number] 00:00:00* Test Item Value Reference Range Interpretation Comme patel HEMOGLOBIN A1c (test code = 41828) 6.0 % Jordi BullockCOMPREHENSIVE METABOLIC [id number] 00:00:00* Test Item Value Reference Range Interpretation Comme nts GLUCOSE (test code = 2217) 101 MG/DL BUN (test code = 2208) 11 MG/DL CREATININE (test code = 2214) 0.74 MG/DL eGFR (2020 CKD-EPI) (test co de = 56122) 96 ML/MIN/1.73 CALC BUN/CREAT (test code = 2235) 15 RATIO SODIUM (test code = 2231) 139 MEQ/L POTASSIUM (test code = 2228) 4.8 MEQ/L CHLORIDE (test code = 2215) 100 MEQ/L CARBON DIOXIDE (test code = 2206) 27 MEQ/L CALCIUM (test code = 2209) 9.8 MG/DL PROTEIN, TOTAL (test code = 2229) 7.1 G/DL ALBUMIN (test code = 2201) 4.2 G/DL CALC GLOBULIN (test code = 2240) 2.9 G/DL CALC A/G RATIO (test code = 2234) 1.4 RATIO BILIRUBIN, TOTAL (test code = 2207) 1.2 MG/DL ALKALINE PHOSPHATASE (test code = 2204) 81 U/L AST (test code = 2218) 25 U/L ALT (test code = 2219) 20 U/L Jordi BullockCBC W/AUTO [id number] 00:00:00* Test Item Value Reference Range Interpretation Comme nts WBC (test code = 1001) 9.2 K/UL RBC (test code = 1002) 5.34 M/UL HEMOGLOBIN (test code = 1003) 15.3 G/DL HEMATOCRIT (test code = 1004) 45.5 % MCV (test code = 1005) 85.2 fL MCH (test code = 1006) 28.7 PG MCHC (test code = 1007) 33.6 G/DL RDW (test code = 1038) 13.2 % NEUTROPHILS (test code = 1008) 64.9 % LYMPHOCYTES (test code = 1010) 22.5 % MONOCYTES (test code = 1011) 7.1 % EOSINOPHILS (test code = 1012) 3.0 % BASOPHILS (test code = 1013) 1.1 % IMMATURE GRANYLOCYTES (test code = 1036) 1.4 % NUCLEATED RBCS (test code = 1065) 0.0 /100WBC'S PLATELET COUNT (test code = 1015) 263 K/UL ABSOLUTE NEUTROPHILS (test c ode = 1066) 5.94 K/UL ABSOLUTE LYMPHOCYTES (test c ode = 1067) 2.06 K/UL ABSOLUTE MONOCYTES (test cod e = 1068) 0.65 K/UL ABSOLUTE EOSINOPHILS (test c ode = 1040) 0.27 K/UL ABSOLUTE BASOPHILS (test cod e = 1069) 0.10 K/UL ABS IMMATURE GRANULOCYTES (t est code = 1020) 0.13 K/UL ABS NUCLEATED RBCS (test cod e = 58398) 0.00 K/UL Jordi BullockFOLIC [id number] 00:00:00* Test Item Value Reference Range Interpretation Comme nts FOLIC ACID (test code = 2695) 10.2 UG/L Jordi BullockVITAMIN D, 25 [id number] 00:00:00* Test Item Value Reference Range Interpretation Comme nts VITAMIN D, 25 OH (test code = 4958) 31 NG/ML Jordi BullockLIPID [id number] 00:00:00* Test Item Value Reference Range Interpretation Comme nts CHOLESTEROL (test code = 2210) 205 MG/DL TRIGLYCERIDES (test code = 2232) 154 MG/DL HDL CHOLESTEROL (test code = 2220) 54 MG/DL CALC LDL CHOL (test code = 2237) 124 MG/DL RISK RATIO LDL/HDL (test cod e = 2238) 2.30 RATIO Jordi BullockHEMOGLOBIN [id number] 00:00:00* Test Item Value Reference Range Interpretation Comme nts HEMOGLOBIN A1c (test code = 31873) 6.0 % Jordi BullockCOMPREHENSIVE METABOLIC [id number] 00:00:00* Test Item Value Reference Range Interpretation Comme nts GLUCOSE (test code = 2217) 101 MG/DL BUN (test code = 2208) 11 MG/DL CREATININE (test code = 2214) 0.74 MG/DL eGFR (2020 CKD-EPI) (test co de = 88072) 96 ML/MIN/1.73 CALC BUN/CREAT (test code = 2235) 15 RATIO SODIUM (test code = 2231) 139 MEQ/L POTASSIUM (test code = 2228) 4.8 MEQ/L CHLORIDE (test code = 2215) 100 MEQ/L CARBON DIOXIDE (test code = 2206) 27 MEQ/L CALCIUM (test code = 2209) 9.8 MG/DL PROTEIN, TOTAL (test code = 2229) 7.1 G/DL ALBUMIN (test code = 2201) 4.2 G/DL CALC GLOBULIN (test code = 2240) 2.9 G/DL CALC A/G RATIO (test code = 2234) 1.4 RATIO BILIRUBIN, TOTAL (test code = 2207) 1.2 MG/DL ALKALINE PHOSPHATASE (test code = 2204) 81 U/L AST (test code = 2218) 25 U/L ALT (test code = 2219) 20 U/L Jordi Kendrick AustinVITAMIN D, 25 [id number] 00:00:00* Test Item Value Reference Range Interpretation Comme nts VITAMIN D, 25 OH (test code = 4958) 21 NG/ML Jordi Kendrick AustinFOLIC [id number] 00:00:00* Test Item Value Reference Range Interpretation Comme nts FOLIC ACID (test code = 2695) 5.0 UG/L Jordi Kendrick AustinHEMOGLOBIN [id number] 00:00:00* Test Item Value Reference Range Interpretation Comme nts HEMOGLOBIN A1c (test code = 09369) 6.7 % Jordi Kendrick AustinVITAMIN D, 25 [id number] 00:00:00* Test Item Value Reference Range Interpretation Comme nts VITAMIN D, 25 OH (test code = 4958) 21 NG/ML Jordi Kendrick AustinFOLIC [id number] 00:00:00* Test Item Value Reference Range Interpretation Comme nts FOLIC ACID (test code = 2695) 5.0 UG/L Jordi Kendrick AustinHEMOGLOBIN [id number] 00:00:00* Test Item Value Reference Range Interpretation Comme nts HEMOGLOBIN A1c (test code = 85642) 6.7 % Jordi Kendrick AustinVITAMIN D, 25 [id number] 00:00:00* Test Item Value Reference Range Interpretation Comme nts VITAMIN D, 25 OH (test code = 4958) 21 NG/ML Jordi BullockFOLIC [id number] 00:00:00* Test Item Value Reference Range Interpretation Comme nts FOLIC ACID (test code = 2695) 5.0 UG/L Jordi BullockHEMOGLOBIN [id number] 00:00:00* Test Item Value Reference Range Interpretation Comme nts HEMOGLOBIN A1c (test code = 49293) 6.7 % Jordi Kendrick AustinGLUCOSE BEDSIDE [id number] 15:30:00* Test Item Value Reference Range Interpretation Comme nts GLUCOSE BEDSIDE TESTING (radha t code = GLUBED) 202 mg/dL 70-110 H HEPARIN IND [id number] 15:12:00* Test Item Value Reference Range Interpretation Comme nts HEPARIN IND THROMBOCYTOPENIA (test code = HIT (PF4 GEM)) 0.205 OD 0.000-0.400 Performe d At: [facility] [id number] Damon MD Ph:[phone] ANTINUCLEAR ANTIBODIES [id number] 13:12:00* Test Item Value Reference Range Interpretation Comme nts XU TITER (test code = ANATITR) Negative See_Comment Negative <1:80 B orderline 1:80 Positive >1:80Performed At: [facility] [id number] Kyle L MD Ph:[phone] [Automated message] The system which generated this result transmitted reference range: (). The reference range was not used to interpret this result as normal/abnormal. GLUCOSE BEDSIDE [id number] 11:51:00* Test Item Value Reference Range Interpretation Comme nts GLUCOSE BEDSIDE TESTING (radha t code = GLUBED) 166 mg/dL 70-110 H GLUCOSE BEDSIDE [id number] 07:39:00* Test Item Value Reference Range Interpretation Comme nts GLUCOSE BEDSIDE TESTING (radha t code = GLUBED) 134 mg/dL 70-110 H [id number] 06:11:00* Test Item Value Reference Range Interpretation Comme nts HAPTOGLOBIN (test code = HAPT) 288 mg/dL 33-346 Performed At: [facility], [place] [id number] Sanjai MD Ph:[phone] GLUCOSE BEDSIDE [id number] 20:39:00* Test Item Value Reference Range Interpretation Comme nts GLUCOSE BEDSIDE TESTING (radha t code = GLUBED) 298 mg/dL 70-110 H GLUCOSE BEDSIDE [id number] 16:37:00* Test Item Value Reference Range Interpretation Comme nts GLUCOSE BEDSIDE TESTING (radha t code = GLUBED) 207 mg/dL 70-110 H CBC W/AUTO [id number] 13:26:00* Test Item Value Reference Range Interpretation [...] REVIEW CONSISTANT WITH AUTO DIFFERENTIAL. GLUCOSE BEDSIDE [id number] 12:17:00* Test Item Value Reference Range Interpretation Comme nts GLUCOSE BEDSIDE TESTING (radha t code = GLUBED) 188 mg/dL 70-110 H - XR CHEST 1 [id number] 11:32:00 [facility] 1965 Sex: F Name: LORI DELUCA [facility] : 1965 Age/S: 55 / F [id number] Unit #: [id number] Loc: [place] [address] Phys: Sergio Love AGACNBethany Acct: [id number] Dis Date: Status: ADM IN PHONE #: [phone] Exam Date: 01/05/2021 1056 FAX #: Reason: COVID EXAMS: CPT: [id number] XR CHEST1 V 91290 Fluoro Time: DAP (Gy m2): Air Kerma [...] PAGE 1 Signed Report Name: LORI DELUCA [place] : 1965 Age/S: 55 / F [id number] Unit #: [id number] Loc: [place] [address] Phys: Sergio Love Acct: [id number] Dis Date: Status: ADM IN PHONE #: [phone] Exam Date: 01/05/2021 1051 FAX #: Reason: COVID EXAMS: CPT: [id number] XR CHEST 1 V 28443 Fluoro Time: DAP (Gy m2): Air Kerma (mGy): (Continued) Technologist: Maribel Mariee, RT(R) Trnscb Date/Time: 01/05/2021 (113) [id number] Orig Print D/T: S: 01/05/2021 (8836) PAGE 2 Signed ReportPLATELET [id number] 10:25:00* Test Item Value Reference Range Interpretation Comme nts PLATELET COUNT (test code = PLT) 271 K/mm3 150-450 N This platelet co unt was done on citrated blood from a bluetop tube due to platelet clumping phenomena in EDTA anti-coagulant and has been corrected for the dilution factor. C REACTIVE [id number] 07:36:00* Test Item Value Reference Range Interpretation Comme nts C REACTIVE PROTEIN (test cod e = CRP) < 0.290 MG/DL 0.000-0.3 N GLUCOSE BEDSIDE [id number] 07:31:00* Test Item Value Reference Range Interpretation Comme nts GLUCOSE BEDSIDE TESTING (radha t code = GLUBED) 168 mg/dL 70-110 H CBC W/AUTO [id number] 07:20:00* Test Item Value Reference Range Interpretation [...] ode = MDIFF) DIFF/SCN CRITERIA GLUCOSE BEDSIDE [id number] 21:11:00* Test Item Value Reference Range Interpretation Comme nts GLUCOSE BEDSIDE TESTING (radha t code = GLUBED) 287 mg/dL 70-110 H GLUCOSE BEDSIDE [id number] 17:36:00* Test Item Value Reference Range Interpretation Comme nts GLUCOSE BEDSIDE TESTING (radha t code = GLUBED) 243 mg/dL 70-110 H LACTIC DEHYDROGENASE(LDH)2021-01-04 16:54:00* Test Item Value Reference Range Interpretation Comme nts LACTIC DEHYDROGENASE(LDH) (t est code = LDH) 437 Unit/L 84-246 H VITAMIN [id number] 16:54:00* Test Item Value Reference Range Interpretation Comme nts VITAMIN B12 (test code = VITB12) 3766 PG/ML 183-986 H FOLIC [id number] 16:54:00* Test Item Value Reference Range Interpretation Comme nts FOLIC ACID (test code = FOL) 6.60 NG/ML 3.10-17.50 N THYROID STIMULATING [id number] 16:54:00* Test Item Value Reference Range Interpretation Comme nts THYROID STIMULATING HORMONE (test code = TSH) 1.460 mcIU/ML 0.340-4.820 N CBC W/AUTO [id number] 15:48:00* Test Item Value Reference Range Interpretation [...] = LDH) 437 Unit/L 84-246 H VITAMIN [id number] 13:29:00* Test Item Value Reference Range Interpretation Comme nts VITAMIN B12 (test code = VITB12) PG/ML 183-986 FOLIC [id number] 13:29:00* Test Item Value Reference Range Interpretation Comme nts FOLIC ACID (test code = FOL) NG/ML 3.10-17.50 THYROID STIMULATING [id number] 13:29:00* Test Item Value Reference Range Interpretation Comme nts THYROID STIMULATING HORMONE (test code = TSH) 1.460 mcIU/ML 0.340-4.820 N GLUCOSE BEDSIDE [id number] 12:20:00* Test Item Value Reference Range Interpretation Comme nts GLUCOSE BEDSIDE TESTING (radha t code = GLUBED) 215 mg/dL 70-110 H PROTHROMBIN [id number] 10:55:00* Test Item Value Reference Range Interpretation Comme nts PT PATIENT (test code = PTP) 11.8 SECONDS 9.3-12.9 N INTERNATIONAL NORMAL RATIO (test code = INR) 1.05 INR Unit 0.8-1.2 N THROMBOPLASTIN TIME [id number] 10:55:00* Test Item Value Reference Range Interpretation Comme nts THROMBOPLASTIN TIME PARTIAL (test code = PTT) 38.4 SECONDS 26-35 H BASIC METABOLIC [id number] 10:45:00* Test Item Value Reference Range Interpretation [...] CA) 9.0 MG/DL 8.5-10.1 N CBC W/AUTO [id number] 10:31:00* Test Item Value Reference Range Interpretation [...] ode = MDIFF) DIFF/SCN CRITERIA GLUCOSE BEDSIDE [id number] 07:58:00* Test Item Value Reference Range Interpretation Comme nts GLUCOSE BEDSIDE TESTING (radha t code = GLUBED) 165 mg/dL 70-110 H CBC W/AUTO [id number] 22:15:00* Test Item Value Reference Range Interpretation [...] SLIDE REVIEW CONSISTANT WITH AUTO DIFFERENTIAL. RBC [id number] 22:15:00* Test Item Value Reference Range Interpretation Comme nts PLATELET ESTIMATE (test code = PLTEST) MARKEDLY DECREASED THOUSAND ADEQUATE PLATELET MORPHOLOGY (test code = PLTMORPH) CLUMPS GLUCOSE BEDSIDE [id number] 20:43:00* Test Item Value Reference Range Interpretation Comme nts GLUCOSE BEDSIDE TESTING (radha t code = GLUBED) 203 mg/dL 70-110 H GLUCOSE BEDSIDE [id number] 16:25:00* Test Item Value Reference Range Interpretation Comme nts GLUCOSE BEDSIDE TESTING (radha t code = GLUBED) 224 mg/dL 70-110 H GLUCOSE BEDSIDE [id number] 12:16:00* Test Item Value Reference Range Interpretation Comme nts GLUCOSE BEDSIDE TESTING (radha t code = GLUBED) 205 mg/dL 70-110 H GLUCOSE BEDSIDE [id number] 07:55:00* Test Item Value Reference Range Interpretation Comme nts GLUCOSE BEDSIDE TESTING (radha t code = GLUBED) 172 mg/dL 70-110 H CBC W/AUTO [id number] 07:01:00* Test Item Value Reference Range Interpretation [...] REVIEW CONSISTANT WITH AUTO DIFFERENTIAL. CBC W/AUTO [id number] 07:01:00* Test Item Value Reference Range Interpretation [...] REVIEW CONSISTANT WITH AUTO DIFFERENTIAL. BASIC METABOLIC [id number] 05:11:00* Test Item Value Reference Range Interpretation [...] CA) 8.8 MG/DL 8.5-10.1 N CBC W/AUTO [id number] 04:58:00* Test Item Value Reference Range Interpretation [...] ode = MDIFF) DIFF/SCN CRITERIA GLUCOSE BEDSIDE [id number] 20:10:00* Test Item Value Reference Range Interpretation Comme nts GLUCOSE BEDSIDE TESTING (radha t code = GLUBED) 209 mg/dL 70-110 H GLUCOSE BEDSIDE [id number] 16:26:00* Test Item Value Reference Range Interpretation Comme nts GLUCOSE BEDSIDE TESTING (radha t code = GLUBED) 208 mg/dL 70-110 H GLUCOSE BEDSIDE [id number] 12:02:00* Test Item Value Reference Range Interpretation Comme nts GLUCOSE BEDSIDE TESTING (radha t code = GLUBED) 247 mg/dL 70-110 H GLUCOSE BEDSIDE [id number] 07:40:00* Test Item Value Reference Range Interpretation Comme nts GLUCOSE BEDSIDE TESTING (radha t code = GLUBED) 143 mg/dL 70-110 H CBC W/AUTO [id number] 07:04:00* Test Item Value Reference Range Interpretation [...] SLIDE REVIEW CONSISTANT WITH AUTO DIFFERENTIAL. RBC [id number] 07:04:00* Test Item Value Reference Range Interpretation Comments PLATELET ESTIMATE (test code = PLTEST) DECREASED THOUSAND ADEQUATE POSSIBLE CLUMPING DU E TO EDTA REACTION. RECOMMENDSCOLLECTION OF BLUE AND LAVENDER TUBE. SEEN PLATELETAGGREGATIONS. INTERPRET WITH CAUTION. NOTIFIED ZOYA PHELAN @07 6.18.1 MGG PLATELET MORPHOLOGY (test code = PLTMORPH) AGGREGATES CBC W/AUTO [id number] 06:59:00* Test Item Value Reference Range Interpretation [...] REVIEW CONSISTANT WITH AUTO DIFFERENTIAL. CBC W/AUTO [id number] 06:59:00* Test Item Value Reference Range Interpretation [...] REVIEW CONSISTANT WITH AUTO DIFFERENTIAL. BASIC METABOLIC [id number] 06:31:00* Test Item Value Reference Range Interpretation [...] CA) 8.9 MG/DL 8.5-10.1 N BASIC METABOLIC [id number] 06:29:00* Test Item Value Reference Range Interpretation [...] CA) 8.9 MG/DL 8.5-10.1 N CBC W/AUTO [id number] 06:10:00* Test Item Value Reference Range Interpretation [...] ode = MDIFF) DIFF/SCN CRITERIA GLUCOSE BEDSIDE [id number] 21:41:00* Test Item Value Reference Range Interpretation Comme [facility] GLUCOSE BEDSIDE TESTING (radha t code = GLUBED) 179 mg/dL 70-110 H GLUCOSE BEDSIDE [id number] 18:24:00* Test Item Value Reference Range Interpretation Comme [facility] GLUCOSE BEDSIDE TESTING (radha t code = GLUBED) 156 mg/dL 70-110 H ARTERIAL BLOOD [id number] 16:11:00* Test Item Value Reference Range Interpretation Comme [facility] ARTERIAL BLOOD GAS PH (test code = [...] (test code = MODALL) Yes Circ.CHK POSITIVE PaO2/[id number] 16:11:00* Test Item Value Reference Range Interpretation Comme [facility] PaO2/FiO2 (test code = [id number]) 55.6 mm/Hg See_Comment L [Automated mess age] The system which generated this result transmitted reference range: 200. The reference range was not used to interpret this result as normal/abnormal. ARTERIAL BLOOD [id number] 16:10:00* Test Item Value Reference Range Interpretation Comme [facility] ARTERIAL BLOOD GAS PH (test code = [...] (test code = MODALL) Yes Circ.CHK POSITIVE PaO2/[id number] 16:10:00* Test Item Value Reference Range Interpretation Comme [facility] PaO2/FiO2 (test code = [id number]) mm/Hg See_Comment [Automated messa ge] The system which generated this result transmitted reference range: 200. The reference range was not used to interpret this result as normal/abnormal. GLUCOSE BEDSIDE [id number] 11:37:00* Test Item Value Reference Range Interpretation Comme [facility] GLUCOSE BEDSIDE TESTING (radha t code = GLUBED) 171 mg/dL 70-110 H CBC W/AUTO [id number] 11:10:00* Test Item Value Reference Range Interpretation Comme [facility] WHITE BLOOD CELL (test code = WBC) [...] SLIDE REVIEW CONSISTANT WITH AUTO DIFFERENTIAL. RBC [id number] 11:10:00* Test Item Value Reference Range Interpretation Comme nts PLATELET ESTIMATE (test code = PLTEST) DECREASED THOUSAND ADEQUATE ESTIMATED PLATELET RANGE = 64,000 - 80,000 PLATELET MORPHOLOGY (test code = PLTMORPH) CLUMPS CBC W/AUTO [id number] 11:06:00* Test Item Value Reference Range Interpretation [...] REVIEW CONSISTANT WITH AUTO DIFFERENTIAL. CBC W/AUTO [id number] 11:05:00* Test Item Value Reference Range Interpretation [...] REVIEW CONSISTANT WITH AUTO DIFFERENTIAL. CBC W/AUTO [id number] 09:36:00* Test Item Value Reference Range Interpretation [...] MDIFF) DIFF/SCN CRITERIA - XR CHEST 1 [id number] 09:32:00 [facility] 1965 Sex: F Name: LORI DELUCA [facility] : 1965 Age/S: 55 / F [id number] [address] Unit #: [id number] Loc: [place] [address] Phys: Sergio Love KATE Acct: [id number] Dis Date: Status: ADM IN PHONE #: [phone] Exam Date: 01/01/202102 FAX #: Reason: COVID EXAMS: CPT: [id number] XR CHEST1 V 20326 Fluoro Time: DAP (Gy m2): Air Kerma [...] Mild degenerative changes affect thoracic spine. IMPRESSION: Essentially unchanged bilateral scattered interstitial and groundglass airspace opacities. at 0932 Reported and signed by: Adam Matthew M.D. CC: Alfred Escobedo MD; Segrio Love PAGE 1 Signed Report Name: LORI DELUCA [facility] Francoise : 1965 Age/S: 55 / F [id number] [address] Unit #: [id number] Loc: [place] [address] Phys: IvanSergio LOVE Acct: [id number] Dis Date: Status: ADM IN PHONE #: [phone] Exam Date: 01/01/2021 0602 FAX #: Reason: COVID EXAMS: CPT: [id number] XR CHEST 1 V 39462 Fluoro Time: DAP (Gy m2): Air Kerma (mGy): (Continued) Technologist: Adriana Forte RT(R)(CT) Trnscb Date/Time: 01/01/2021 (0932) [email or web address] Orig Print D/T: S: 01/01/2021 (0935) PAGE 2 Signed ReportGLUCOSE BEDSIDE [id number] 08:22:00* Test Item Value Reference Range Interpretation Comme nts GLUCOSE BEDSIDE TESTING (radha t code = GLUBED) 143 mg/dL 70-110 H BASIC METABOLIC [id number] 06:55:00* Test Item Value Reference Range Interpretation [...] code = LDH) 281 Unit/L 84-246 H [id number] 06:55:00* Test Item Value Reference Range Interpretation Comme nts FERRITIN (test code = WOOD) 133.9 NG/ML 3.0-105.0 H BASIC METABOLIC [id number] 06:52:00* Test Item Value Reference Range Interpretation [...] (t est code = LDH) Unit/L 84-246 [id number] 06:52:00* Test Item Value Reference Range Interpretation Comme nts FERRITIN (test code = WOOD) NG/ML 3.0-105.0 [id number] 06:41:00* Test Item Value Reference Range Interpretation Comme nts D-DIMER (test code = DDIMER) 430 ng/mLFEU 215-500 N C REACTIVE [id number] 06:40:00* Test Item Value Reference Range Interpretation Comme nts C REACTIVE PROTEIN (test cod e = CRP) 7.530 MG/DL 0.000-0.3 H GLUCOSE BEDSIDE [id number] 21:00:00* Test Item Value Reference Range Interpretation Comme nts GLUCOSE BEDSIDE TESTING (radha t code = GLUBED) 175 mg/dL 70-110 H GLUCOSE BEDSIDE [id number] 16:53:00* Test Item Value Reference Range Interpretation Comme nts GLUCOSE BEDSIDE TESTING (radha t code = GLUBED) 126 mg/dL 70-110 H GLUCOSE BEDSIDE [id number] 12:19:00* Test Item Value Reference Range Interpretation Comme nts GLUCOSE BEDSIDE TESTING (radha t code = GLUBED) 122 mg/dL 70-110 H GLUCOSE BEDSIDE [id number] 08:20:00* Test Item Value Reference Range Interpretation Comme nts GLUCOSE BEDSIDE TESTING (radha t code = GLUBED) 119 mg/dL 70-110 H BASIC METABOLIC [id number] 06:37:00* Test Item Value Reference Range Interpretation [...] CA) 8.5 MG/DL 8.5-10.1 N CBC W/AUTO [id number] 06:33:00* Test Item Value Reference Range Interpretation [...] = MDIFF) NO DIFF/SCN CRITERIA GLUCOSE BEDSIDE [id number] 20:10:00* Test Item Value Reference Range Interpretation Comme nts GLUCOSE BEDSIDE TESTING (radha t code = GLUBED) 153 mg/dL 70-110 H GLUCOSE BEDSIDE [id number] 17:51:00* Test Item Value Reference Range Interpretation Comme nts GLUCOSE BEDSIDE TESTING (radha t code = GLUBED) 185 mg/dL 70-110 H GLUCOSE BEDSIDE [id number] 12:35:00* Test Item Value Reference Range Interpretation Comme nts GLUCOSE BEDSIDE TESTING (radha t code = GLUBED) 181 mg/dL 70-110 H GLUCOSE BEDSIDE [id number] 12:35:00* Test Item Value Reference Range Interpretation Comme nts GLUCOSE BEDSIDE TESTING (radha t code = GLUBED) 138 mg/dL 70-110 H - XR CHEST 1 [id number] 09:06:00 [facility] 1965 Sex: F Name: LORI DELUCA [place] : 1965 Age/S: 55 / F [id number] [address] Unit #: [id number] Loc: [place] [address] Phys: Sergio Love KATE Acct: [id number] Dis Date: Status: ADM IN PHONE #: [phone] Exam Date: 12/30/2020 0510 FAX #: Reason: COVID EXAMS: CPT: [id number] XR CHEST 1 V 87091 Fluoro Time: DAP (Gy m2): Air Kerma (mGy): EXAMINATION: - XR CHEST 1 V. LOCATION: S17.HISTORY: COVID. COMPARISON: Chest x-ray and CTA chest 12/27/20. FINDINGS: Examination is limited dueto portable technique, patient body habitus and low lung volumes. Cardiac silhouette/Mediastinal contour: Prominence of cardiac silhouette. Lungs: Continued progression of bilateral scattered intersti tial and groundglass airspace opacities. No large pleural effusion. Osseous Structures: Mild degenerative changes affect thoracic spine. IMPRESSION: Continued progression of bilateral scattered interstitial and groundglass airspace opacities. at 0906 Reported and signed by: Adam Matthew M.D. CC: Alfred Escobedo MD; Sergio Love PAGE 1 Signed Report Name: LORI DELUCA [place] : 1965 Age/S: 55 / F [address] [address] Unit #: [id number] Loc: [place] [address] Phys: IvanAshleighlora LOVE Acct: [id number] Dis Date: Status: ADM IN PHONE #: [phone] Exam Date: 12/30/2020 0510 FAX #: Reason: COVID EXAMS: CPT: [id number] XR CHEST 1 V 45404 Fluoro Time: DAP (Gy m2): Air Kerma (mGy): (Continued) Technologist: Linda Mayorga, RT(R)(CT) Trnscb Date/Time: 12/30/2020 (0906) [email or web address] Orig Print D/T: S: 12/30/2020 (7219) PAGE 2 Signed ReportC W/AUTO [id number] 06:31:00* Test Item Value Reference Range Interpretation [...] = MDIFF) NO DIFF/SCN CRITERIA GLUCOSE BEDSIDE [id number] 05:30:00* Test Item Value Reference Range Interpretation Comme nts GLUCOSE BEDSIDE TESTING (radha t code = GLUBED) 152 mg/dL 70-110 H BASIC METABOLIC [id number] 05:28:00* Test Item Value Reference Range Interpretation [...] code = LDH) 310 Unit/L 84-246 H [id number] 05:28:00* Test Item Value Reference Range Interpretation Comme nts FERRITIN (test code = WOOD) 227.4 NG/ML 3.0-105.0 H [id number] 05:07:00* Test Item Value Reference Range Interpretation Comme nts D-DIMER (test code = DDIMER) 552 ng/mLFEU 215-500 HH C REACTIVE [id number] 04:59:00* Test Item Value Reference Range Interpretation Comme nts C REACTIVE PROTEIN (test cod e = CRP) 18.800 MG/DL 0.000-0.3 H BASIC METABOLIC [id number] 04:58:00* Test Item Value Reference Range Interpretation [...] Test Item Value Reference Range Interpretation Comme [facility] LACTIC DEHYDROGENASE(LDH) (t est code = LDH) Unit/L 84-246 [id number] 04:58:00* Test Item Value Reference Range Interpretation Comme [facility] FERRITIN (test code = WOOD) NG/ML 3.0-105.0 ARTERIAL BLOOD [id number] 23:44:00* Test Item Value Reference Range Interpretation Comme [facility] ARTERIAL BLOOD GAS PH (test code = [...] (test code = MODALL) Yes Circ.CHK POSITIVE PaO2/[id number] 23:44:00* Test Item Value Reference Range Interpretation Comme nts PaO2/FiO2 (test code = [id number]) mm/Hg See_Comment [Automated messa ge] The system which generated this result transmitted reference range: 200. The reference range was not used to interpret this result as normal/abnormal. ARTERIAL BLOOD [id number] 23:44:00* Test Item Value Reference Range Interpretation Comme [facility] ARTERIAL BLOOD GAS PH (test code = [...] (test code = MODALL) Yes Circ.CHK POSITIVE PaO2/[id number] 23:44:00* Test Item Value Reference Range Interpretation Comme [facility] PaO2/FiO2 (test code = QJJ6OPU1) 105.7 mm/Hg See_Comment L [Automated mess age] The system which generated this result transmitted reference range: 200. The reference range was not used to interpret this result as normal/abnormal. GLUCOSE BEDSIDE [id number] 23:13:00* Test Item Value Reference Range Interpretation Comme [facility] GLUCOSE BEDSIDE TESTING (radha t code = GLUBED) 133 mg/dL 70-110 H ARTERIAL BLOOD [id number] 20:44:00* Test Item Value Reference Range Interpretation Comme [facility] ARTERIAL BLOOD GAS PH (test code = [...] (test code = MODALL) Yes Circ.CHK POSITIVE PaO2/[id number] 20:44:00* Test Item Value Reference Range Interpretation Comme nts PaO2/FiO2 (test code = [id number]) 101.4 mm/Hg See_Comment L [Automated mess age] The system which generated this result transmitted reference range: 200. The reference range was not used to interpret this result as normal/abnormal. ARTERIAL BLOOD [id number] 20:44:00* Test Item Value Reference Range Interpretation [...] (test code = MODALL) Yes Circ.CHK POSITIVE PaO2/[id number] 20:44:00* Test Item Value Reference Range Interpretation Comme nts PaO2/FiO2 (test code = UZB1TUE1) mm/Hg See_Comment [Automated messa ge] The system which generated this result transmitted reference range: 200. The reference range was not used to interpret this result as normal/abnormal. GLUCOSE BEDSIDE [id number] 18:59:00* Test Item Value Reference Range Interpretation Comme nts GLUCOSE BEDSIDE TESTING (radha t code = GLUBED) 122 mg/dL 70-110 H [id number] 13:48:00* Test Item Value Reference Range Interpretation Comme nts GLYCOSYLATED HEMOGLOBIN (HA1 C) (test code = GLYHGB) 5.9 % A1C 0.0-5.7 H ESTIMATED AVERAGE GLUCOSE (t est code = EAG) 123 MG/DLest CBC W/AUTO [id number] 12:38:00* Test Item Value Reference Range Interpretation [...] ode = MDIFF) YES DIFF/SCN CRITERIA WBC [id number] 12:38:00* Test Item Value Reference Range Interpretation [...] (test code = PLTMORPH) NORMAL CBC W/AUTO [id number] 12:37:00* Test Item Value Reference Range Interpretation [...] ode = MDIFF) YES DIFF/SCN CRITERIA WBC [id number] 12:37:00* Test Item Value Reference Range Interpretation Comme nts SEGMENTED NEUTROPHILS (test code = SEG) % 40-75 LYMPHOCYTE (test code = LYMPH) % 18.7-40.6 CBC W/AUTO [id number] 12:37:00* Test Item Value Reference Range Interpretation [...] ode = MDIFF) YES DIFF/SCN CRITERIA WBC [id number] 12:37:00* Test Item Value Reference Range Interpretation Comme nts SEGMENTED NEUTROPHILS (test code = SEG) % 40-75 LYMPHOCYTE (test code = LYMPH) % 18.7-40.6 COMPREHENSIVE METABOLIC [id number] 12:27:00* Test Item Value Reference Range Interpretation [...] ALKP) 51 Unit/L 45-117 N GLUCOSE BEDSIDE [id number] 12:13:00* Test Item Value Reference Range Interpretation Comme nts GLUCOSE BEDSIDE TESTING (radha t code = GLUBED) 149 mg/dL 70-110 H CBC W/AUTO [id number] 12:12:00* Test Item Value Reference Range Interpretation [...] ode = MDIFF) DIFF/SCN CRITERIA GLUCOSE BEDSIDE [id number] 08:22:00* Test Item Value Reference Range Interpretation Comme nts GLUCOSE BEDSIDE TESTING (radha t code = GLUBED) 103 mg/dL 70-110 N GLUCOSE BEDSIDE [id number] 20:27:00* Test Item Value Reference Range Interpretation Comme nts GLUCOSE BEDSIDE TESTING (radha t code = GLUBED) 169 mg/dL 70-110 H GLUCOSE BEDSIDE [id number] 16:42:00* Test Item Value Reference Range Interpretation Comme nts GLUCOSE BEDSIDE TESTING (radha t code = GLUBED) 188 mg/dL 70-110 H GLUCOSE BEDSIDE [id number] 11:46:00* Test Item Value Reference Range Interpretation Comme nts GLUCOSE BEDSIDE TESTING (radha t code = GLUBED) 147 mg/dL 70-110 H THROMBOPLASTIN TIME [id number] 10:50:00* Test Item Value Reference Range Interpretation Comme nts THROMBOPLASTIN TIME PARTIAL (test code = PTT) 38.1 SECONDS 26-35 H GLUCOSE BEDSIDE [id number] 07:56:00* Test Item Value Reference Range Interpretation Comme nts GLUCOSE BEDSIDE TESTING (radha t code = GLUBED) 184 mg/dL 70-110 H GLUCOSE BEDSIDE [id number] 23:43:00* Test Item Value Reference Range Interpretation Comme nts GLUCOSE BEDSIDE TESTING (radha t code = GLUBED) 172 mg/dL 70-110 H PROTHROMBIN [id number] 20:34:00* Test Item Value Reference Range Interpretation Comme nts PT PATIENT (test code = PTP) 14.6 SECONDS 9.3-12.9 H INTERNATIONAL NORMAL RATIO (test code = INR) 1.30 INR Unit 0.8-1.2 H THROMBOPLASTIN TIME [id number] 20:34:00* Test Item Value Reference Range Interpretation Comme nts THROMBOPLASTIN TIME PARTIAL (test code = PTT) >400 SECONDS 26-35 HH Previously repor layla result: RESULT CLARITZA SECONDSEdited by: VIKTORIYAT on 12/27/20~~~~~~~ ~~~~~~~~~~~~~~~~~~~~ ~~~~~~~~~~~~~ This is a CORRECTED REPORT - CTA CHEST FOR [id number] 20:23:00 [facility] 1965 Sex: F Name: LORI DELUCA [facility] : 1965 Age/S: 55 / F [id number] [facility] [place] Unit #: [id number] Loc: [place] [address] Phys: Nancie Brandon MD Acct: [id number] Dis Date: Status: ADM IN PHONE #: [phone] Exam Date: 12/27/20202004 FAX #: Reason: SOB; elevated D-dimer with COVID PNAEXAMS: CPT: [id number] [place] [address] EXAM: CTA CHEST WITH CONTRAST. INDICATION: Covid pneumonia, shortness of breath COMPARISON: None available TECHNIQUE: [...] lungs consistent with multifocal pneumonia. No suspicious p ulmonary nodules are identified. The trachea and central airways are patent. No mediastinal, hilar, supraclavicular, or axillary adenopathy is identified. The thyroid gland is normal in appearance. The upper abdomen is unremarkable. No acute osseous abnormality of the thoracic spine. IMPRESSION: No pulmonary embolus is identified. Patchy parenchymal opacities throughout both lungs consistent with multifocal pneumonia. LOCATION: B2 This CT exam was performed according to our departmental dose optimization program, which includes automated exposure control, adjustment of the mA and or kV according to patient size and/or use of iterative reconstruction technique. PAGE 1 Signed Report (CONTINUED) Name: LORI DELUCA : 1965 Age/S: 55 / F [address] [address] Unit #: [id number] Loc: [place] [address] Phys: Nancie Brandon MD Acct: [id number] Dis Date: Status: ADM IN PHONE #: [phone] Exam Date: 12/27/20202004 FAX #: Reason: SOB; elevated D-dimer with COVID PNA EXAMS: CPT: [id number] [place] [id number] (Continued) at 2022 Reported and signed by: Janis Rendon M.D. CC: Nancie Brandon MD Technologist:Valentina Ching, RT(R); Tif CTDI: DLP: Trnscb Date/Time: 12/27/2020 (2022) 16 Orig Print D/T: S: 12/27/2020 (2025) PAGE 2 Signed ReportPROTHROMBIN [id number] 20:14:00* Test Item Value Reference Range Interpretation Comme nts PT PATIENT (test code = PTP) 14.6 SECONDS 9.3-12.9 H INTERNATIONAL NORMAL RATIO (test code = INR) 1.30 INR Unit 0.8-1.2 H THROMBOPLASTIN TIME [id number] 20:14:00* Test Item Value Reference Range Interpretation Comme nts THROMBOPLASTIN TIME PARTIAL (test code = PTT) RESULT CLARITZA SECONDS 26-35 L HEPATIC FUNCTION [id number] 19:59:00* Test Item Value Reference Range Interpretation [...] Unit/L 45-117 N Comment: Prior to remdesivir [id number] 19:59:00* Test Item Value Reference Range Interpretation [...] varyby method. Completed by Nursing: NOC REACTIVE [id number] 19:59:00* Test Item Value Reference Range Interpretation Comme nts C REACTIVE PROTEIN (test cod e = CRP) 17.000 MG/DL 0.000-0.3 H UR HCG [id number] 19:49:00* Test Item Value Reference Range Interpretation Comme nts UR HCG QUAL (test code = HCGQLU) NEGATIVE NEGATIVE ARTERIAL BLOOD [id number] 19:23:00* Test Item Value Reference Range Interpretation [...] (test code = MODALL) Yes Circ.CHK POSITIVE PaO2/[id number] 19:23:00* Test Item Value Reference Range Interpretation Comme nts PaO2/FiO2 (test code = [id number]) mm/Hg See_Comment [Automated messa ge] The system which generated this result transmitted reference range: 200. The reference range was not used to interpret this result as normal/abnormal. ARTERIAL BLOOD [id number] 19:23:00* Test Item Value Reference Range Interpretation Comme [facility] ARTERIAL BLOOD GAS PH (test code = [...] (test code = MODALL) Yes Circ.CHK POSITIVE PaO2/[id number] 19:23:00* Test Item Value Reference Range Interpretation Comme nts PaO2/FiO2 (test code = [id number]) 216.7 mm/Hg See_Comment [Automated mess age] The system which generated this result transmitted reference range: 200. The reference range was not used to interpret this result as normal/abnormal. LACTIC [id number] 18:18:00* Test Item Value Reference Range Interpretation Comme nts LACTIC ACID (test code = LACT) 1.6 mmol/L 0.4-2.0 N BASIC METABOLIC [id number] 18:18:00* Test Item Value Reference Range Interpretation [...] CA) 8.8 MG/DL 8.5-10.1 N CBC W/AUTO [id number] 18:06:00* Test Item Value Reference Range Interpretation [...] c ode = MDIFF) NO DIFF/SCN CRITERIA VITAMIN D, 25 [id number] 00:00:00* Test Item Value Reference Range Interpretation Comme [facility] VITAMIN D, 25 OH (test code = 4958) 9 NG/ML Jordi Kendrick KobeVITAMIN D, 25 [id number] 00:00:00* Test Item Value Reference Range Interpretation Comme [facility] VITAMIN D, 25 OH (test code = 4958) 9 NG/ML Jordi BullockVITAMIN D, 25 [id number] 00:00:00* Test Item Value Reference Range Interpretation Comme [facility] VITAMIN D, 25 OH (test code = 4958) 9 NG/ML Jordi Kendrick KobeHEMOGLOBIN [id number] 00:00:00* Test Item Value Reference Range Interpretation Comme [facility] HEMOGLOBIN A1c (test code = 92103) 6.1 % Jordi BullockCBC W/AUTO [id number] 00:00:00* Test Item Value Reference Range Interpretation Comme nts WBC (test code = 1001) 10.4 K/UL RBC (test code = 1002) 5.87 M/UL HEMOGLOBIN (test code = 1003) 16.1 G/DL HEMATOCRIT (test code = 1004) 49.2 % MCV (test code = 1005) 83.8 fL MCH (test code = 1006) 27.4 PG MCHC (test code = 1007) 32.7 G/DL RDW (test code = 1038) 13.2 % NEUTROPHILS (test code = 1008) 74.9 % LYMPHOCYTES (test code = 1010) 18.2 % MONOCYTES (test code = 1011) 3.7 % EOSINOPHILS (test code = 1012) 2.5 % BASOPHILS (test code = 1013) 0.7 % PLATELET COUNT (test code = 1015) 249 K/UL Jordi BullockCOMPREHENSIVE METABOLIC [id number] 00:00:00* Test Item Value Reference Range Interpretation Comme nts GLUCOSE (test code = 2217) 57 MG/DL BUN (test code = 2208) 14 MG/DL CREATININE (test code = 2214) 0.68 MG/DL eGFR AMER. (test cod e = 92196) 116 ML/MIN/1.73 eGFR NON- AMER. (test code = 96397) 100 ML/MIN/1.73 CALC BUN/CREAT (test code = 2235) 21 RATIO SODIUM (test code = 2231) 141 MEQ/L POTASSIUM (test code = 2228) 5.3 MEQ/L CHLORIDE (test code = 2215) 99 MEQ/L CARBON DIOXIDE (test code = 2206) 23 MEQ/L CALCIUM (test code = 2209) 9.1 MG/DL PROTEIN, TOTAL (test code = 2229) 7.3 G/DL ALBUMIN (test code = 2201) 4.2 G/DL CALC GLOBULIN (test code = 2240) 3.1 G/DL CALC A/G RATIO (test code = 2234) 1.4 RATIO BILIRUBIN, TOTAL (test code = 2207) 0.8 MG/DL ALKALINE PHOSPHATASE (test code = 2204) 102 U/L AST (test code = 2218) 17 U/L ALT (test code = 2219) 12 U/L Jordi BullockVITAMIN B 12 AND FOLIC [id number] 00:00:00* Test Item Value Reference Range Interpretation Comme patel VITAMIN B-12 (test code = 2840) 356 PG/ML FOLIC ACID (test code = 2695) 5.4 UG/L Jordi BullockHEMOGLOBIN [id number] 00:00:00* Test Item Value Reference Range Interpretation Comme pat[facility] HEMOGLOBIN A1c (test code = 97305) 6.1 % Jordi BullockCBC W/AUTO [id number] 00:00:00* Test Item Value Reference Range Interpretation Comme nts WBC (test code = 1001) 10.4 K/UL RBC (test code = 1002) 5.87 M/UL HEMOGLOBIN (test code = 1003) 16.1 G/DL HEMATOCRIT (test code = 1004) 49.2 % MCV (test code = 1005) 83.8 fL MCH (test code = 1006) 27.4 PG MCHC (test code = 1007) 32.7 G/DL RDW (test code = 1038) 13.2 % NEUTROPHILS (test code = 1008) 74.9 % LYMPHOCYTES (test code = 1010) 18.2 % MONOCYTES (test code = 1011) 3.7 % EOSINOPHILS (test code = 1012) 2.5 % BASOPHILS (test code = 1013) 0.7 % PLATELET COUNT (test code = 1015) 249 K/UL Jordi BullockCOMPREHENSIVE METABOLIC [id number] 00:00:00* Test Item Value Reference Range Interpretation Comme [facility] GLUCOSE (test code = 2217) 57 MG/DL BUN (test code = 2208) 14 MG/DL CREATININE (test code = 2214) 0.68 MG/DL eGFR AMER. (test cod e = 61083) 116 ML/MIN/1.73 eGFR NON- AMER. (test code = 60155) 100 ML/MIN/1.73 CALC BUN/CREAT (test code = 2235) 21 RATIO SODIUM (test code = 2231) 141 MEQ/L POTASSIUM (test code = 2228) 5.3 MEQ/L CHLORIDE (test code = 2215) 99 MEQ/L CARBON DIOXIDE (test code = 2206) 23 MEQ/L CALCIUM (test code = 2209) 9.1 MG/DL PROTEIN, TOTAL (test code = 2229) 7.3 G/DL ALBUMIN (test code = 2201) 4.2 G/DL CALC GLOBULIN (test code = 2240) 3.1 G/DL CALC A/G RATIO (test code = 2234) 1.4 RATIO BILIRUBIN, TOTAL (test code = 2207) 0.8 MG/DL ALKALINE PHOSPHATASE (test code = 2204) 102 U/L AST (test code = 2218) 17 U/L ALT (test code = 2219) 12 U/L Jordi BullockVITAMIN B 12 AND FOLIC [id number] 00:00:00* Test Item Value Reference Range Interpretation Comme patel VITAMIN B-12 (test code = 2840) 356 PG/ML FOLIC ACID (test code = 2695) 5.4 UG/L Jordi BullockHEMOGLOBIN [id number] 00:00:00* Test Item Value Reference Range Interpretation Comme [facility] HEMOGLOBIN A1c (test code = 12577) 6.1 % Jordi BullockCBC W/AUTO [id number] 00:00:00* Test Item Value Reference Range Interpretation Comme nts WBC (test code = 1001) 10.4 K/UL RBC (test code = 1002) 5.87 M/UL HEMOGLOBIN (test code = 1003) 16.1 G/DL HEMATOCRIT (test code = 1004) 49.2 % MCV (test code = 1005) 83.8 fL MCH (test code = 1006) 27.4 PG MCHC (test code = 1007) 32.7 G/DL RDW (test code = 1038) 13.2 % NEUTROPHILS (test code = 1008) 74.9 % LYMPHOCYTES (test code = 1010) 18.2 % MONOCYTES (test code = 1011) 3.7 % EOSINOPHILS (test code = 1012) 2.5 % BASOPHILS (test code = 1013) 0.7 % PLATELET COUNT (test code = 1015) 249 K/UL Jordi BullockCOMPREHENSIVE METABOLIC [id number] 00:00:00* Test Item Value Reference Range Interpretation Comme nts GLUCOSE (test code = 2217) 57 MG/DL BUN (test code = 2208) 14 MG/DL CREATININE (test code = 2214) 0.68 MG/DL eGFR AMER. (test cod e = 94154) 116 ML/MIN/1.73 eGFR NON- AMER. (test code = 48241) 100 ML/MIN/1.73 CALC BUN/CREAT (test code = 2235) 21 RATIO SODIUM (test code = 2231) 141 MEQ/L POTASSIUM (test code = 2228) 5.3 MEQ/L CHLORIDE (test code = 2215) 99 MEQ/L CARBON DIOXIDE (test code = 2206) 23 MEQ/L CALCIUM (test code = 2209) 9.1 MG/DL PROTEIN, TOTAL (test code = 2229) 7.3 G/DL ALBUMIN (test code = 2201) 4.2 G/DL CALC GLOBULIN (test code = 2240) 3.1 G/DL CALC A/G RATIO (test code = 2234) 1.4 RATIO BILIRUBIN, TOTAL (test code = 2207) 0.8 MG/DL ALKALINE PHOSPHATASE (test code = 2204) 102 U/L AST (test code = 2218) 17 U/L ALT (test code = 2219) 12 U/L Jordi BullockVITAMIN B 12 AND FOLIC [id number] 00:00:00* Test Item Value Reference Range Interpretation Comme [facility] VITAMIN B-12 (test code = 2840) 356 PG/ML FOLIC ACID (test code = 2695) 5.4 UG/L Jordi BullockCOMPREHENSIVE METABOLIC [id number] 00:00:00* Test Item Value Reference Range Interpretation Comme [facility] GLUCOSE (test code = 2217) 84 MG/DL BUN (test code = 2208) 13 MG/DL CREATININE (test code = 2214) 0.63 MG/DL eGFR AMER. (test cod e = 92448) 120 ML/MIN/1.73 eGFR NON- AMER. (test code = 21029) 104 ML/MIN/1.73 CALC BUN/CREAT (test code = 2235) 21 RATIO SODIUM (test code = 2231) 140 MEQ/L POTASSIUM (test code = 2228) 4.4 MEQ/L CHLORIDE (test code = 2215) 100 MEQ/L CARBON DIOXIDE (test code = 2206) 26 MEQ/L CALCIUM (test code = 2209) 10.1 MG/DL PROTEIN, TOTAL (test code = 2229) 7.8 G/DL ALBUMIN (test code = 2201) 4.7 G/DL CALC GLOBULIN (test code = 2240) 3.1 G/DL CALC A/G RATIO (test code = 2234) 1.5 RATIO BILIRUBIN, TOTAL (test code = 2207) 1.6 MG/DL ALKALINE PHOSPHATASE (test code = 2204) 82 U/L AST (test code = 2218) 27 U/L ALT (test code = 2219) 24 U/L Jordi BullockLIPID [id number] 00:00:00* Test Item Value Reference Range Interpretation Comme nts CHOLESTEROL (test code = 2210) 215 MG/DL TRIGLYCERIDES (test code = 2232) 176 MG/DL HDL CHOLESTEROL (test code = 2220) 49 MG/DL CALC LDL CHOL (test code = 2237) 131 MG/DL RISK RATIO LDL/HDL (test cod e = 223) 2.67 RATIO Jordi BullockHEMOGLOBIN [id number] 00:00:00* Test Item Value Reference Range Interpretation Comme [facility] HEMOGLOBIN A1c (test code = 38101) 5.5 % Jordi Kendrick ClydeCOMPREHENSIVE METABOLIC [id number] 00:00:00* Test Item Value Reference Range Interpretation Comme nts GLUCOSE (test code = 2217) 84 MG/DL BUN (test code = 2207) 13 MG/DL CREATININE (test code = 2214) 0.63 MG/DL eGFR AMER. (test cod e = 35559) 120 ML/MIN/1.73 eGFR NON- AMER. (test code = 04480) 104 ML/MIN/1.73 CALC BUN/CREAT (test code = 2235) 21 RATIO SODIUM (test code = 2231) 140 MEQ/L POTASSIUM (test code = 2228) 4.4 MEQ/L CHLORIDE (test code = 2215) 100 MEQ/L CARBON DIOXIDE (test code = 2206) 26 MEQ/L CALCIUM (test code = 2209) 10.1 MG/DL PROTEIN, TOTAL (test code = 2229) 7.8 G/DL ALBUMIN (test code = 2201) 4.7 G/DL CALC GLOBULIN (test code = 2240) 3.1 G/DL CALC A/G RATIO (test code = 2234) 1.5 RATIO BILIRUBIN, TOTAL (test code = 2207) 1.6 MG/DL ALKALINE PHOSPHATASE (test code = 2204) 82 U/L AST (test code = 2218) 27 U/L ALT (test code = 2219) 24 U/L Jordi BullockLIPID [id number] 00:00:00* Test Item Value Reference Range Interpretation Comme nts CHOLESTEROL (test code = 2210) 215 MG/DL TRIGLYCERIDES (test code = 2232) 176 MG/DL HDL CHOLESTEROL (test code = 2220) 49 MG/DL CALC LDL CHOL (test code = 2237) 131 MG/DL RISK RATIO LDL/HDL (test cod e = 2238) 2.67 RATIO Jordi BullockHEMOGLOBIN [id number] 00:00:00* Test Item Value Reference Range Interpretation Comme nts HEMOGLOBIN A1c (test code = 59448) 5.5 % Jordi BullockCOMPREHENSIVE METABOLIC [id number] 00:00:00* Test Item Value Reference Range Interpretation Comme nts GLUCOSE (test code = 2217) 84 MG/DL BUN (test code = 2208) 13 MG/DL CREATININE (test code = 2214) 0.63 MG/DL eGFR AMER. (test cod e = 88153) 120 ML/MIN/1.73 eGFR NON- AMER. (test code = 31444) 104 ML/MIN/1.73 CALC BUN/CREAT (test code = 2235) 21 RATIO SODIUM (test code = 2231) 140 MEQ/L POTASSIUM (test code = 2228) 4.4 MEQ/L CHLORIDE (test code = 2215) 100 MEQ/L CARBON DIOXIDE (test code = 2206) 26 MEQ/L CALCIUM (test code = 2209) 10.1 MG/DL PROTEIN, TOTAL (test code = 2229) 7.8 G/DL ALBUMIN (test code = 2201) 4.7 G/DL CALC GLOBULIN (test code = 2240) 3.1 G/DL CALC A/G RATIO (test code = 2234) 1.5 RATIO BILIRUBIN, TOTAL (test code = 2207) 1.6 MG/DL ALKALINE PHOSPHATASE (test code = 2204) 82 U/L AST (test code = 2218) 27 U/L ALT (test code = 2219) 24 U/L Jordi F AustinLIPID [id number] 00:00:00* Test Item Value Reference Range Interpretation Comme nts CHOLESTEROL (test code = 2210) 215 MG/DL TRIGLYCERIDES (test code = 2232) 176 MG/DL HDL CHOLESTEROL (test code = 2220) 49 MG/DL CALC LDL CHOL (test code = 2237) 131 MG/DL RISK RATIO LDL/HDL (test cod e = 2238) 2.67 RATIO Jordi Kendrick AustinHEMOGLOBIN [id number] 00:00:00* Test Item Value Reference Range Interpretation Comme nts HEMOGLOBIN A1c (test code = 82800) 5.5 % Jordi BullockCOMPREHENSIVE METABOLIC [id number] 00:00:00* Test Item Value Reference Range Interpretation Comme nts GLUCOSE (test code = 2217) 94 MG/DL BUN (test code = 2208) 16 MG/DL CREATININE (test code = 2214) 0.72 MG/DL eGFR AMER. (test cod e = 63490) 113 ML/MIN/1.73 eGFR NON- AMER. (test code = 17744) 98 ML/MIN/1.73 CALC BUN/CREAT (test code = 2235) 22 RATIO SODIUM (test code = 2231) 138 MEQ/L POTASSIUM (test code = 2228) 4.7 MEQ/L CHLORIDE (test code = 2215) 99 MEQ/L CARBON DIOXIDE (test code = 2206) 24 MEQ/L CALCIUM (test code = 2209) 9.8 MG/DL PROTEIN, TOTAL (test code = 2229) 7.3 G/DL ALBUMIN (test code = 2201) 4.2 G/DL CALC GLOBULIN (test code = 2240) 3.1 G/DL CALC A/G RATIO (test code = 2234) 1.4 RATIO BILIRUBIN, TOTAL (test code = 2207) 1.0 MG/DL ALKALINE PHOSPHATASE (test code = 2204) 81 U/L AST (test code = 2218) 20 U/L ALT (test code = 2219) 17 U/L Jordi Kendrick AustinHEMOGLOBIN [id number] 00:00:00* Test Item Value Reference Range Interpretation Comme nts HEMOGLOBIN A1c (test code = 88449) 5.7 % Jordi BullockCBC W/AUTO [id number] 00:00:00* Test Item Value Reference Range Interpretation Comme nts WBC (test code = 1001) 9.1 K/UL RBC (test code = 1002) 5.33 M/UL HEMOGLOBIN (test code = 1003) 15.6 G/DL HEMATOCRIT (test code = 1004) 44.8 % MCV (test code = 1005) 84.1 fL MCH (test code = 1006) 29.3 PG MCHC (test code = 1007) 34.8 G/DL RDW (test code = 1038) 13.7 % NEUTROPHILS (test code = 1008) 70.3 % LYMPHOCYTES (test code = 1010) 20.9 % MONOCYTES (test code = 1011) 5.0 % EOSINOPHILS (test code = 1012) 3.2 % BASOPHILS (test code = 1013) 0.6 % PLATELET COUNT (test code = 1015) 239 K/UL Jordi Kendrick KobeTHYROID II PROFILE (T3U, T4, T7, TSH)[id number] 00:00:00* Test Item Value Reference Range Interpretation Comme nts T-UPTAKE (test code = 2817) 30.2 % THYROX. BIND. CAPAC. (test c ode = 62857) 1.1 T4 (THYROXINE) (test code = 2819) 7.4 UG/DL CORRECTED T4 (FTI) (test cod e = 2820) 6.7 UG/DL TSH (test code = 2821) 2.750 UIU/ML Jordi Kendrick AustinLIPID [id number] 00:00:00* Test Item Value Reference Range Interpretation Comme nts CHOLESTEROL (test code = 2210) 209 MG/DL TRIGLYCERIDES (test code = 2232) 294 MG/DL HDL CHOLESTEROL (test code = 2220) 41 MG/DL CALC LDL CHOL (test code = 2237) 109 MG/DL RISK RATIO LDL/HDL (test cod e = 2238) 2.66 RATIO Jordi BullockCOMPREHENSIVE METABOLIC [id number] 00:00:00* Test Item Value Reference Range Interpretation Comme nts GLUCOSE (test code = 2217) 94 MG/DL BUN (test code = 2208) 16 MG/DL CREATININE (test code = 2214) 0.72 MG/DL eGFR AMER. (test cod e = 85718) 113 ML/MIN/1.73 eGFR NON- AMER. (test code = 43192) 98 ML/MIN/1.73 CALC BUN/CREAT (test code = 2235) 22 RATIO SODIUM (test code = 2231) 138 MEQ/L POTASSIUM (test code = 2228) 4.7 MEQ/L CHLORIDE (test code = 2215) 99 MEQ/L CARBON DIOXIDE (test code = 2206) 24 MEQ/L CALCIUM (test code = 2209) 9.8 MG/DL PROTEIN, TOTAL (test code = 2229) 7.3 G/DL ALBUMIN (test code = 2201) 4.2 G/DL CALC GLOBULIN (test code = 2240) 3.1 G/DL CALC A/G RATIO (test code = 2234) 1.4 RATIO BILIRUBIN, TOTAL (test code = 2207) 1.0 MG/DL ALKALINE PHOSPHATASE (test code = 2204) 81 U/L AST (test code = 2218) 20 U/L ALT (test code = 2219) 17 U/L Jordi BullockHEMOGLOBIN [id number] 00:00:00* Test Item Value Reference Range Interpretation Comme nts HEMOGLOBIN A1c (test code = 04855) 5.7 % Jordi BullockCBC W/AUTO [id number] 00:00:00* Test Item Value Reference Range Interpretation Comme nts WBC (test code = 1001) 9.1 K/UL RBC (test code = 1002) 5.33 M/UL HEMOGLOBIN (test code = 1003) 15.6 G/DL HEMATOCRIT (test code = 1004) 44.8 % MCV (test code = 1005) 84.1 fL MCH (test code = 1006) 29.3 PG MCHC (test code = 1007) 34.8 G/DL RDW (test code = 1038) 13.7 % NEUTROPHILS (test code = 1008) 70.3 % LYMPHOCYTES (test code = 1010) 20.9 % MONOCYTES (test code = 1011) 5.0 % EOSINOPHILS (test code = 1012) 3.2 % BASOPHILS (test code = 1013) 0.6 % PLATELET COUNT (test code = 1015) 239 K/UL Jordi BullockTHYROID II PROFILE (T3U, T4, T7, TSH)2017-10-21 00:00:00* Test Item Value Reference Range Interpretation Comme nts T-UPTAKE (test code = 2817) 30.2 % THYROX. BIND. CAPAC. (test c ode = 11203) 1.1 T4 (THYROXINE) (test code = 2819) 7.4 UG/DL CORRECTED T4 (FTI) (test cod e = 2820) 6.7 UG/DL TSH (test code = 2821) 2.750 UIU/ML Jordi Kendrick AustinLIPID [id number] 00:00:00* Test Item Value Reference Range Interpretation Comme nts CHOLESTEROL (test code = 2210) 209 MG/DL TRIGLYCERIDES (test code = 2232) 294 MG/DL HDL CHOLESTEROL (test code = 2220) 41 MG/DL CALC LDL CHOL (test code = 2237) 109 MG/DL RISK RATIO LDL/HDL (test cod e = 2238) 2.66 RATIO Jordi BullockCOMPREHENSIVE METABOLIC [id number] 00:00:00* Test Item Value Reference Range Interpretation Comme nts GLUCOSE (test code = 2217) 94 MG/DL BUN (test code = 2208) 16 MG/DL CREATININE (test code = 2214) 0.72 MG/DL eGFR AMER. (test cod e = 70989) 113 ML/MIN/1.73 eGFR NON- AMER. (test code = 36009) 98 ML/MIN/1.73 CALC BUN/CREAT (test code = 2235) 22 RATIO SODIUM (test code = 2231) 138 MEQ/L POTASSIUM (test code = 2228) 4.7 MEQ/L CHLORIDE (test code = 2215) 99 MEQ/L CARBON DIOXIDE (test code = 2206) 24 MEQ/L CALCIUM (test code = 2209) 9.8 MG/DL PROTEIN, TOTAL (test code = 2229) 7.3 G/DL ALBUMIN (test code = 2201) 4.2 G/DL CALC GLOBULIN (test code = 2240) 3.1 G/DL CALC A/G RATIO (test code = 2234) 1.4 RATIO BILIRUBIN, TOTAL (test code = 2207) 1.0 MG/DL ALKALINE PHOSPHATASE (test code = 2204) 81 U/L AST (test code = 2218) 20 U/L ALT (test code = 2219) 17 U/L Jordi BullockHEMOGLOBIN [id number] 00:00:00* Test Item Value Reference Range Interpretation Comme nts HEMOGLOBIN A1c (test code = 03357) 5.7 % Jordi BullockCBC W/AUTO [id number] 00:00:00* Test Item Value Reference Range Interpretation Comme nts WBC (test code = 1001) 9.1 K/UL RBC (test code = 1002) 5.33 M/UL HEMOGLOBIN (test code = 1003) 15.6 G/DL HEMATOCRIT (test code = 1004) 44.8 % MCV (test code = 1005) 84.1 fL MCH (test code = 1006) 29.3 PG MCHC (test code = 1007) 34.8 G/DL RDW (test code = 1038) 13.7 % NEUTROPHILS (test code = 1008) 70.3 % LYMPHOCYTES (test code = 1010) 20.9 % MONOCYTES (test code = 1011) 5.0 % EOSINOPHILS (test code = 1012) 3.2 % BASOPHILS (test code = 1013) 0.6 % PLATELET COUNT (test code = 1015) 239 K/UL Jordi BullockTHYROID II PROFILE (T3U, T4, T7, TSH)2017-10-21 00:00:00* Test Item Value Reference Range Interpretation Comme nts T-UPTAKE (test code = 2817) 30.2 % THYROX. BIND. CAPAC. (test c ode = 69939) 1.1 T4 (THYROXINE) (test code = 2819) 7.4 UG/DL CORRECTED T4 (FTI) (test cod e = 2820) 6.7 UG/DL TSH (test code = 2821) 2.750 UIU/ML Jordi BullockLIPID [id number] 00:00:00* Test Item Value Reference Range Interpretation Comme nts CHOLESTEROL (test code = 2210) 209 MG/DL TRIGLYCERIDES (test code = 2232) 294 MG/DL HDL CHOLESTEROL (test code = 2220) 41 MG/DL CALC LDL CHOL (test code = 2237) 109 MG/DL RISK RATIO LDL/HDL (test cod e = 2238) 2.66 RATIO Jordi BullockCOMPREHENSIVE METABOLIC [id number] 00:00:00* Test Item Value Reference Range Interpretation Comme nts GLUCOSE (test code = 2217) 86 MG/DL BUN (test code = 2208) 12 MG/DL CREATININE (test code = 2214) 0.70 MG/DL eGFR AMER. (test cod e = 54991) 117 ML/MIN/1.73 eGFR NON- AMER. (test code = 81435) 101 ML/MIN/1.73 CALC BUN/CREAT (test code = 2235) 17 RATIO SODIUM (test code = 2231) 143 MEQ/L POTASSIUM (test code = 2228) 4.8 MEQ/L CHLORIDE (test code = 2215) 102 MEQ/L CARBON DIOXIDE (test code = 2206) 29 MEQ/L CALCIUM (test code = 2209) 9.1 MG/DL PROTEIN, TOTAL (test code = 2229) 6.6 G/DL ALBUMIN (test code = 2201) 3.9 G/DL CALC GLOBULIN (test code = 2240) 2.7 G/DL CALC A/G RATIO (test code = 2234) 1.4 RATIO BILIRUBIN, TOTAL (test code = 2207) 0.8 MG/DL ALKALINE PHOSPHATASE (test code = 2204) 82 U/L AST (test code = 2218) 15 U/L ALT (test code = 2219) 17 U/L Jordi F KobeCOMPREHENSIVE METABOLIC [id number] 00:00:00* Test Item Value Reference Range Interpretation Comme nts GLUCOSE (test code = 2217) 86 MG/DL BUN (test code = 2208) 12 MG/DL CREATININE (test code = 2214) 0.70 MG/DL eGFR AMER. (test cod e = 89796) 117 ML/MIN/1.73 eGFR NON- AMER. (test code = 25733) 101 ML/MIN/1.73 CALC BUN/CREAT (test code = 2235) 17 RATIO SODIUM (test code = 2231) 143 MEQ/L POTASSIUM (test code = 2228) 4.8 MEQ/L CHLORIDE (test code = 2215) 102 MEQ/L CARBON DIOXIDE (test code = 2206) 29 MEQ/L CALCIUM (test code = 2209) 9.1 MG/DL PROTEIN, TOTAL (test code = 2229) 6.6 G/DL ALBUMIN (test code = 2201) 3.9 G/DL CALC GLOBULIN (test code = 2240) 2.7 G/DL CALC A/G RATIO (test code = 2234) 1.4 RATIO BILIRUBIN, TOTAL (test code = 2207) 0.8 MG/DL ALKALINE PHOSPHATASE (test code = 2204) 82 U/L AST (test code = 2218) 15 U/L ALT (test code = 2219) 17 U/L Jordi BullockCOMPREHENSIVE METABOLIC [id number] 00:00:00* Test Item Value Reference Range Interpretation Comme nts GLUCOSE (test code = 2217) 86 MG/DL BUN (test code = 2208) 12 MG/DL CREATININE (test code = 2214) 0.70 MG/DL eGFR AMER. (test cod e = 34638) 117 ML/MIN/1.73 eGFR NON- AMER. (test code = 81065) 101 ML/MIN/1.73 CALC BUN/CREAT (test code = 2235) 17 RATIO SODIUM (test code = 2231) 143 MEQ/L POTASSIUM (test code = 2228) 4.8 MEQ/L CHLORIDE (test code = 2215) 102 MEQ/L CARBON DIOXIDE (test code = 2206) 29 MEQ/L CALCIUM (test code = 2209) 9.1 MG/DL PROTEIN, TOTAL (test code = 2229) 6.6 G/DL ALBUMIN (test code = 2201) 3.9 G/DL CALC GLOBULIN (test code = 2240) 2.7 G/DL CALC A/G RATIO (test code = 2234) 1.4 RATIO BILIRUBIN, TOTAL (test code = 2207) 0.8 MG/DL ALKALINE PHOSPHATASE (test code = 2204) 82 U/L AST (test code = 2218) 15 U/L ALT (test code = 2219) 17 U/L Jordi Bullock Notes Date/Time Note Provider Source Jordi KendrickRaquel Kobe [facility]2024-05-08 00:00:00 Plan Activity Refer for Sleep study and Sleep speciali st h/o JANINA. 2016-08-11 CMP lisinopril 20mg 1 tablet by mouth DAILY check blood pressure daily at home and keep log ER precautions discussed modest weight loss recommended RTO in 6m 2016-08-11 Symbicort take as directed s/e of meds discussed If no improvement, RTC for possible CxR declined albuterol neb tx 2016-08-11 asthma care plan discussed 2016-08-11 control portions , manage we ight Increase exercise weight loss referral 2016-08-11 bactrim as prescribed Take ABT as prescribed. Med SE as per pharmacy Tylenol or Ibuprofen for pain as needed Keep the area clean and dry. Use antibacterial soap for skin care Soak the feet with warm water helps to soften the feet . RTC for increased pain , redness or for any fever 2017-08-09 REFER FOR PHYSICAL THERAPY- [facility] NOTIFIED,- requested on last visit [facility] - requested on last visit WHEELCHAIR Stretching exercises and weight bearing as tolerated. Advised weight loss which can help in decreasing knee pain. 2017-10-20 sertraline 25 mg tablet qd s/e of meds discussed with pt Mood is stable. 2017-10-20 Refer to 2018-01-05 EKG was done due to upper ab dominal pain: NSR, some abnormalities which shows a past NM. Start Omeprazole 40 mg PO daily x 7 days, sent to [facility]. Limit use of Mobic. Diet changes advised and propping head while sleeping. If abdominal pain increases or is accompanied by nausea/ vomiting/ fever, or chest pain, go to ER. If no improvement, f/u in clinic before 3 months. 2018-01-26 H pylori is positive. Start Amoxicillin 1 gm BID x 7 days, Metronidazole 500 mg PO BID x 7 days and Omeprazole 40 mg qday x 7 days. Retest in one month. Advised patient to use Omeprazole for only one week. 2018-01-26 Last TGL in October was 294. Declined use of Statin. Advised to start taking Fish oil 2 caps PO BID Follow a heart healthy lifestyle to prevent CAD. 2018-04-18 Educated pt. to go to ER 2018-07-12 Start Clindamycin - Cellulit is and Possible BV Start Fluconazole Monitor Temperature Keep areas open to air when possible Patient is scheduled to follow up with [facility] today. 2019-08-02 referral to GI for possible weight loss sx 2019-11-29 Refer to [facility]PER[facility] for further cristina luation See plan 1. 2020-01-09 Flagyl 500 mg po bid x 7 day s Medication sent Verbal prescription and side effects given 2020-02-20 Skin tags to bilateral inner thighs Reassurance and education provided 2020-02-20 amitriptyline 50 mg tablet Take 1 daily take daily 2020-05-22 vesicare take as directed s/e of meds discussed with pt including anticholinergic effects reduce water intake 3-4 hrs prior to bedtime reduce caffeinated drinks, sodas, sugary foods/drinks RTO in 6m to reassess 2020-10-14 folic acid 1 mg tablet Take 1 daily amitriptyline 50 mg tablet Take 1 daily 2020-10-14 VITAMIN D cholecalciferol (vitamin D3) OTC vit D ( does not know dosage) 2021-02-03 FOLIC ACID folic acid 1mg 1 tablet by mouth DAILY 2021-02-03 CBC( hx of elevated hemoglobin) A1C CMP elevated A1c 6.7% 01/2021 - but has not started metformin Will recheck A1c and if > 6.5 % pt will start metformin Discussed about side effects of metformin, 2021-08-11 LIPID-fasting 2021-08-11 Parking placard application and Rx provi ded 2021-08-11 COVID, FLU, RSV,FLU If you test positive for the virus that causes COVID-19, take the following steps to protect others regardless of your COVID-19 vaccination status: Isolate at home and isolate away from others for at least 10 days. If you do not have any symptoms, you should still isolate at home for at least 10 days. If you develop symptoms, continue to isolate for at least 10 days after symptoms began as long as symptoms have improved, and no fever is present for at least 24 hours without use of fever-reducing medications. Most people have mild COVID-19 illness and can recover at home without medical care. Contact your healthcare provider as soon as possible if you are more likely to get very sick because of being an older adult or having underlying medical conditions or if your symptoms get worse. procedures light icon Talk to your healthcare provider or local health department to find out how long to isolate if you: Are severely ill with COVID-19 or have a weakened immune system Had a positive test result followed by a negative result Test positive for many weeks after the initial result If you test negative for the virus that causes COVID-19, the virus was not detected. user md chpaman light icon If you have symptoms of COVID-19: You may have received a false negative test result and still might have COVID-19. You should isolate away from others. Contact your healthcare provider about your symptoms, especially if they worsen, about follow-up testing, and how long to isolate. If you do not have symptoms of COVID-19 and, you were exposed to a person with COVID-19: You are likely not infected, but you still may get sick. Self-quarantine at home for 14 days after your exposure. Persons who are fully vaccinated with COVID-19 vaccine do not need to self-quarantine at home For residents of non-healthcare congregate settings (e.g. correctional and prison facilities, group homes) and employees of residential congregate settings and high-density workplaces (e.g. meat and poultry processing and manufacturing plants), refer to CDC s recommendations for fully | | vaccinated people. Contact your local health department regarding options to reduce the length of quarantine. If symptoms develop during home quarantine: Contact your healthcare provider about follow-up testing Isolate at home away from others If you do not have symptoms of COVID-19 and do not have a known exposure to a person with COVID-19: 2021-09-17 COVID, STREP , FLU , RSV If you test positive for the virus that causes COVID-19, take the following steps to protect others regardless of your COVID-19 vaccination status: Isolate at home and isolate away from others for at least 10 days. If you do not have any symptoms, you should still isolate at home for at least 10 days. If you develop symptoms, continue to isolate for at least 10 days after symptoms began as long as symptoms have improved, and no fever is present for at least 24 hours without use of fever-reducing medications. Most people have mild COVID-19 illness and can recover at home without medical care. Contact your healthcare provider as soon as possible if you are more likely to get very sick because of being an older adult or having underlying medical conditions or if your symptoms get worse. procedures light icon Talk to your healthcare provider or local health department to find out how long to isolate if you: Are severely ill with COVID-19 or have a weakened immune system Had a positive test result followed by a negative result Test positive for many weeks after the initial result If you test negative for the virus that causes COVID-19, the virus was not detected. user md adela huerta icon If you have symptoms of COVID-19: You may have received a false negative test result and still might have COVID-19. You should isolate away from others. Contact your healthcare provider about your symptoms, especially if they worsen, about follow-up testing, and how long to isolate. If you do not have symptoms of COVID-19 and, you were exposed to a person with COVID-19: You are likely not infected, but you still may get sick. Self-quarantine at home for 14 days after your exposure. Persons who are fully vaccinated with COVID-19 vaccine do not need to self-quarantine at home For residents of non-healthcare congregate settings (e.g. correctional and prison facilities, group homes) and employees of residential congregate settings and high-density workplaces (e.g. meat and poultry processing and manufacturing plants), refer to CDC s recommendations for fully vaccinated | people. Contact your local health department regarding options to reduce the length of quarantine. If symptoms develop during home quarantine: Contact your healthcare provider about follow-up testing Isolate at home away from others If you do not have symptoms of COVID-19 and do not have a known exposure to a person with COVID-19: You do not need to self-quarantine. 2021-09-17 | Encourage to eat more vegetables. Cut ou t saturated fats 2021-09-21 POST ER VISIT [facility] 10/11/20212021 COLOGUARD 2021-10-14 Moderate cardiomegaly with o ut acute pulmonary process- CXR 10/11/2021 HTN No chest pain at this time - had cp on 10/11/2021 REFER TO CARDIOLOGY 2021-10-14 Prednisone tessalon merary sent to pharmacy Continue using inhaler, portable O2 PRN as ordered ER precautions 2022-04-09 REFERRAL FOR PULMONOLOGY 2022-04-09 Azithromycin take as directe d Continue prednisone , tessalon mik s/e of meds discussed If no improvement, RTC for possible CxR 2022-04-15 FLONASE TAKE DIRECTED 2022-11-01 PT IS REQUESTING WHEELCHAIR/WALKER 11-01 [facility] Medical Need for Primary home care and community Attendent SErvices. Provides non technical attendent services to eligible individuals with medical condition. Will sign due to obesity, incontinence, COPD, osteoarthritis b/l knees, 2022-11-01 Rx: Mupirocin 2 % Ointment - Sig: APPLY SPARINGLY TO AFFECTED AREA(S) TWICE DAILY QUANTITY 15 GM - Days 7 [facility] Rx: Bactrim DS 800-160 MG Tablet - Sig: TAKE 1 TABLET TWICE DAILY WITH FOOD. QUANTITY 20 Tablet - Days 10 [facility] Keep area clean and dry RTO prn for follow up 2023-05-20 HgA1c Cut down on carbs. Choose foods with low glycemic index. 2023-06-20 Shingrix #1 /TDAP side effects to administration of vaccine explained. PT informed to RTC in 2-6 months for Shingrix #2 2023-06-20 REfer to Refer to therapist Denied SI/HI cetirizine 10 mg qd po -declined pt recent SI on 11/20/2023 s/e of meds 988 crises line If symptoms worsen, pt is instructed to go to ER ER precautions Suicide hot line provided and text crises line 2023-11-23 REfer to Denied SI/HI currently 988 crises line If symptoms worsen, pt is instructed to go to ER ER precautions Suicide hot line provided and text crises line 2023-11-23 REFER TO MEDICAL BILLING ASSOCIATE 2023-11-23 CBC 2023-11-23 CMP CYSTATIN C 2023-11-23 Jordi KendrickRaquel [facility]2024-05-08 00:00:00 Plan Activity Refer for Sleep study and Sleep speciali st h/o JANINA. 2016-08-11 lisinopril 20mg 1 tablet by mouth DAILY recommend checking BP 2-3 times per week 2016-08-11 Symbicort take as directed recommend checking pulse ox 2-3 times per week and as needed 2016-08-11 as above 2016-08-11 TAMMY CLARK NOTIFIED, WALKER - wide enough to accomodate pt Stretching exercises and weight bearing as tolerated. Advised weight loss which can help in decreasing knee pain. refilled meloxicam 15 mg qd and cyclobenzaprine 10 mg qd control portions , manage weight Increase exercise 2016-08-11 bactrim as prescribed Take ABT as prescribed. Med SE as per pharmacy Tylenol or Ibuprofen for pain as needed Keep the area clean and dry. Use antibacterial soap for skin care Soak the feet with warm water helps to soften the feet . RTC for increased pain , redness or for any fever 2017-08-09 TAMMY CLARK NOTIFIED, WALKER - wide enough to accomodate pt Stretching exercises and weight bearing as tolerated. Advised weight loss which can help in decreasing knee pain. refilled meloxicam 15 mg qd and cyclobenzaprine 10 mg qd 2017-10-20 sertraline 25 mg tablet qd s/e of meds discussed with pt Mood is stable. 2017-10-20 Refer to 2018-01-05 EKG was done due to upper ab dominal pain: NSR, some abnormalities which shows a past NM. Start Omeprazole 40 mg PO daily x 7 days, sent to HEB. Limit use of Mobic. Diet changes advised and propping head while sleeping. If abdominal pain increases or is accompanied by nausea/ vomiting/ fever, or chest pain, go to ER. If no improvement, f/u in clinic before 3 months. 2018-01-26 H pylori is positive. Start Amoxicillin 1 gm BID x 7 days, Metronidazole 500 mg PO BID x 7 days and Omeprazole 40 mg qday x 7 days. Retest in one month. Advised patient to use Omeprazole for only one week. 2018-01-26 Last TGL in October was 294. Declined use of Statin. Advised to start taking Fish oil 2 caps PO BID Follow a heart healthy lifestyle to prevent CAD. 2018-04-18 Educated pt. to go to ER 2018-07-12 Start Clindamycin - Cellulit is and Possible BV Start Fluconazole Monitor Temperature Keep areas open to air when possible Patient is scheduled to follow up with [facility] today. 2019-08-02 referral to GI for possible weight loss sx 2019-11-29 Refer to [facility] OPERATOR for further cristina luation See plan 1. 2020-01-09 Flagyl 500 mg po bid x 7 day s Medication sent Verbal prescription and side effects given 2020-02-20 Skin tags to bilateral inner thighs Reassurance and education provided 2020-02-20 amitriptyline 50 mg tablet Take 1 daily take daily 2020-05-22 vesicare take as directed s/e of meds discussed with pt including anticholinergic effects reduce water intake 3-4 hrs prior to bedtime reduce caffeinated drinks, sodas, sugary foods/drinks RTO in 6m to reassess 2020-10-14 folic acid 1 mg tablet Take 1 daily amitriptyline 50 mg tablet Take 1 daily 2020-10-14 VITAMIN D cholecalciferol (vitamin D3) OTC vit D ( does not know dosage) 2021-02-03 FOLIC ACID folic acid 1mg 1 tablet by mouth DAILY 2021-02-03 CBC( hx of elevated hemoglobin) A1C CMP elevated A1c 6.7% 01/2021 - but has not started metformin Will recheck A1c and if > 6.5 % pt will start metformin Discussed about side effects of metformin, 2021-08-11 vitals as above 2021-08-11 Parking placard application and Rx provi ded 2021-08-11 COVID, FLU, RSV,FLU If you test positive for the virus that causes COVID-19, take the following steps to protect others regardless of your COVID-19 vaccination status: Isolate at home and isolate away from others for at least 10 days. If you do not have any symptoms, you should still isolate at home for at least 10 days. If you develop symptoms, continue to isolate for at least 10 days after symptoms began as long as symptoms have improved, and no fever is present for at least 24 hours without use of fever-reducing medications. Most people have mild COVID-19 illness and can recover at home without medical care. Contact your healthcare provider as soon as possible if you are more likely to get very sick because of being an older adult or having underlying medical conditions or if your symptoms get worse. procedures light icon Talk to your healthcare provider or local health department to find out how long to isolate if you: Are severely ill with COVID-19 or have a weakened immune system Had a positive test result followed by a negative result Test positive for many weeks after the initial result If you test negative for the virus that causes COVID-19, the virus was not detected. user md chapman light icon If you have symptoms of COVID-19: You may have received a false negative test result and still might have COVID-19. You should isolate away from others. Contact your healthcare provider about your symptoms, especially if they worsen, about follow-up testing, and how long to isolate. If you do not have symptoms of COVID-19 and, you were exposed to a person with COVID-19: You are likely not infected, but you still may get sick. Self-quarantine at home for 14 days after your exposure. Persons who are fully vaccinated with COVID-19 vaccine do not need to self-quarantine at home For residents of non-healthcare congregate settings (e.g. correctional and prison facilities, group homes) and employees of residential congregate settings and high-density workplaces (e.g. meat and poultry processing and manufacturing plants), refer to CDC s recommendations for fully | | vaccinated people. Contact your local health department regarding options to reduce the length of quarantine. If symptoms develop during home quarantine: Contact your healthcare provider about follow-up testing Isolate at home away from others If you do not have symptoms of COVID-19 and do not have a known exposure to a person with COVID-19: 2021-09-17 COVID, STREP , FLU , RSV If you test positive for the virus that causes COVID-19, take the following steps to protect others regardless of your COVID-19 vaccination status: Isolate at home and isolate away from others for at least 10 days. If you do not have any symptoms, you should still isolate at home for at least 10 days. If you develop symptoms, continue to isolate for at least 10 days after symptoms began as long as symptoms have improved, and no fever is present for at least 24 hours without use of fever-reducing medications. Most people have mild COVID-19 illness and can recover at home without medical care. Contact your healthcare provider as soon as possible if you are more likely to get very sick because of being an older adult or having underlying medical conditions or if your symptoms get worse. procedures light icon Talk to your healthcare provider or local health department to find out how long to isolate if you: Are severely ill with COVID-19 or have a weakened immune system Had a positive test result followed by a negative result Test positive for many weeks after the initial result If you test negative for the virus that causes COVID-19, the virus was not detected. user md chapman light icon If you have symptoms of COVID-19: You may have received a false negative test result and still might have COVID-19. You should isolate away from others. Contact your healthcare provider about your symptoms, especially if they worsen, about follow-up testing, and how long to isolate. If you do not have symptoms of COVID-19 and, you were exposed to a person with COVID-19: You are likely not infected, but you still may get sick. Self-quarantine at home for 14 days after your exposure. Persons who are fully vaccinated with COVID-19 vaccine do not need to self-quarantine at home For residents of non-healthcare congregate settings (e.g. correctional and prison facilities, group homes) and employees of residential congregate settings and high-density workplaces (e.g. meat and poultry processing and manufacturing plants), refer to CDC s recommendations for fully vaccinated | people. Contact your local health department regarding options to reduce the length of quarantine. If symptoms develop during home quarantine: Contact your healthcare provider about follow-up testing Isolate at home away from others If you do not have symptoms of COVID-19 and do not have a known exposure to a person with COVID-19: You do not need to self-quarantine. 2021-09-17 | Encourage to eat more vegetables. Cut ou t saturated fats 2021-09-21 POST ER VISIT [facility] 10/11/20212021 COLOGUARD 2021-10-14 Moderate cardiomegaly with o ut acute pulmonary process- CXR 10/11/2021 HTN No chest pain at this time - had cp on 10/11/2021 REFER TO CARDIOLOGY 2021-10-14 Prednisonejennifer sent to pharmacy Continue using inhaler, portable O2 PRN as ordered ER precautions 2022-04-09 REFERRAL FOR PULMONOLOGY 2022-04-09 Azithromycin take as directe d Continue prednisone jennifer s/e of meds discussed If no improvement, RTC for possible CxR 2022-04-15 FLONASE TAKE DIRECTED 2022-11-01 PT IS REQUESTING GARY CLARK NOTIFIED, WALKER - wide enough to accomodate pt Stretching exercises and weight bearing as tolerated. Advised weight loss which can help in decreasing knee pain. refilled meloxicam 15 mg qd and cyclobenzaprine 10 mg qd 2022-11-01 PT is wanting form from [facility] Practitioner's Statement of Medical Need for Primary home care and community Attendent SErvices. Provides non technical attendent services to eligible individuals with medical condition. Will sign due to obesity, incontinence, COPD, osteoarthritis b/l knees, 2022-11-01 Rx: Mupirocin 2 % Ointment - Sig: APPLY SPARINGLY TO AFFECTED AREA(S) TWICE DAILY QUANTITY 15 GM - Days 7 [facility] Rx: Bactrim DS 800-160 MG Tablet - Sig: TAKE 1 TABLET TWICE DAILY WITH FOOD. QUANTITY 20 Tablet - Days 10 [facility] Keep area clean and dry RTO prn for follow up 2023-05-20 HgA1c Cut down on carbs. Choose foods with low glycemic index. 2023-06-20 Shingrix #1 /TDAP side effects to administration of vaccine explained. PT informed to RTC in 2-6 months for Shingrix #2 2023-06-20 REfer to Refer to therapist Denied SI/HI cetirizine 10 mg qd po -declined pt recent SI on 11/20/2023 s/e of meds 988 crises line If symptoms worsen, pt is instructed to go to ER ER precautions Suicide hot line provided and text crises line 2023-11-23 REfer to Denied SI/HI currently 988 crises line If symptoms worsen, pt is instructed to go to ER ER precautions Suicide hot line provided and text crises line 2023-11-23 REFER TO MEDICAL BILLING ASSOCIATE 2023-11-23 CBC 2023-11-23 CMP CYSTATIN C 2023-11-23 [facility]2021-06-22 15:29:00 [facility] ([facility]) Infectious Dis. Progress Note REPORT#:[id number] REPORT STATUS: Signed DATE:01/06/21 TIME:1528 PATIENT: LORI DELUCA UNIT #: [id number] ROOM/BED: [place] [id number] : [birth year] AGE: 55 SEX: F ATTEND: Alfred Escobedo MD ADM AUTHOR: Annalisa Hernandez * ALL edits or amendments must be made on the electronic/computer document * Subjective Chief Complaint: Pneumonia HPI: Patient afebrile. Sitting up comfortably in chair and states she is ready to go home. WBC decreasing and CRP within normal limits. Review of Systems Constitutional: Denies: chills, fatigue, fever, generalized weakness. Objective General VS/I O: Last Documented: Result Date Time Pulse Ox [...] 1 Bowel Movements PATIENT WEIGHT: Weight (lb): 400 Weight (oz): 2.22 Weight (kg): 181.437 Physical Exam General appearance: alert, awake, oriented Head/Eyes: atraumatic, clear cornea, normocephalic Neck: full range of motion, non-tender Cardiovascular: regular rate rhythm Abdomen: non-tender, soft, no guarding Extremities: moves all, normal capillary refill, no clubbing, no cyanosis Diagnosis, Assessment Plan Free Text A P: Laboratory Tests 01/05/21 0600: [Embedded Image Not Available] Plt Count TNP Assessment: 1. Pneumonia with covid-19 s/p CV plasma and remdesivir. 2. Acute respiratory failure with hypoxia. 3. Morbid obesity. Plan: 1. Pt completed treatment with ceftriaxone. 2. Weaning O2 as tolerated. 3. Patient can be discharged from an ID standpoint in coordination with the primary and pulmonary team for at-home oxygen and steroids. 4. ID will sign off -- thank you for this consult. at 1534 RPT #: [id number] END OF REPORT [id number] 15:29:00 [facility] ([facility]) Infectious Dis. Progress Note REPORT#:[id number] REPORT STATUS: Signed DATE:01/06/21 TIME:1529 PATIENT: LORI DELUCA UNIT #: [id number] ROOM/BED: [place] [address] : 69 AGE: 55 SEX: F ATTEND: Alfred Escobedo MD ADM AUTHOR: Annalisa Hernandez * ALL edits or amendments must be made on the electronic/computer document * Annalisa Hernandez 01/06/21 1529: Subjective Chief Complaint: Pneumonia HPI: Patient afebrile. Sitting up comfortably in chair and states she is ready to go home. WBC decreasing and CRP within normal limits. Review of Systems Constitutional: Denies: chills, fatigue, fever, generalized weakness. Objective General VS/I O: Last Documented: Result Date Time Pulse Ox [...] 1 Bowel Movements PATIENT WEIGHT: Weight (lb): 400 Weight (oz): 2.22 Weight (kg): 181.437 Physical Exam General appearance: alert, awake, oriented Head/Eyes: atraumatic, clear cornea, normocephalic Neck: full range of motion, non-tender Cardiovascular: regular rate rhythm Abdomen: non-tender, soft, no guarding Extremities: moves all, normal capillary refill, no clubbing, no cyanosis Diagnosis, Assessment Plan Free Text A P: Laboratory Tests 01/05/21 0600: [Embedded Image Not Available] Plt Count TNP Assessment: 1. Pneumonia with covid-19 s/p CV plasma and remdesivir. 2. Acute respiratory failure with hypoxia. 3. Morbid obesity. Plan: 1. Pt completed treatment with ceftriaxone. 2. Weaning O2 as tolerated. 3. Patient can be discharged from an ID standpoint in coordination with the primary and pulmonary team for at-home oxygen and steroids. 4. ID will sign off -- thank you for this consult. Rudy Aguilar 01/06/21 1742: Attestations Attestation needed: supervising physician Physician Attestation Agree w/findings plan: Agree with the findings and plan as documented by TERE Hernandez. Pt with morbid obesity who developed severe covid-19. She has markedly improved and her O2 requirements have significantly decreased. Continue steroids per pulmonary. Will sign off. Please call us if there are any questions. at 1534 RPT #: [id number] END OF REPORT [id number] 15:29:00 [facility] ([facility]) Infectious Dis. Progress Note REPORT#:[id number] REPORT STATUS: Signed DATE:01/06/21 TIME:152 PATIENT: LORI DELUCA UNIT #: [id number] ROOM/BED: [place] [address] : 69 AGE: 55 SEX: F ATTEND: Alfred Escobedo MD ADM AUTHOR: Annalisa Hernandez * ALL edits or amendments must be made on the electronic/computer document * Annalisa Hernandez 01/06/21 1529: Subjective Chief Complaint: Pneumonia HPI: Patient afebrile. Sitting up comfortably in chair and states she is ready to go home. WBC decreasing and CRP within normal limits. Review of Systems Constitutional: Denies: chills, fatigue, fever, generalized weakness. Objective General VS/I O: Last Documented: Result Date Time Pulse Ox [...] 1 Bowel Movements PATIENT WEIGHT: Weight (lb): 400 Weight (oz): 2.22 Weight (kg): 181.437 Physical Exam General appearance: alert, awake, oriented Head/Eyes: atraumatic, clear cornea, normocephalic Neck: full range of motion, non-tender Cardiovascular: regular rate rhythm Abdomen: non-tender, soft, no guarding Extremities: moves all, normal capillary refill, no clubbing, no cyanosis Diagnosis, Assessment Plan Free Text A P: Laboratory Tests 01/05/21 0600: [Embedded Image Not Available] Plt Count TNP Assessment: 1. Pneumonia with covid-19 s/p CV plasma and remdesivir. 2. Acute respiratory failure with hypoxia. 3. Morbid obesity. Plan: 1. Pt completed treatment with ceftriaxone. 2. Weaning O2 as tolerated. 3. Patient can be discharged from an ID standpoint in coordination with the primary and pulmonary team for at-home oxygen and steroids. 4. ID will sign off -- thank you for this consult. Rudy Aguilar 01/06/21 1742: Attestations Attestation needed: supervising physician Physician Attestation Agree w/findings plan: Agree with the findings and plan as documented by TERE Hernandez. Pt with morbid obesity who developed severe covid-19. She has markedly improved and her O2 requirements have significantly decreased. Continue steroids per pulmonary. Will sign off. Please call us if there are any questions. at 1534 at 1744 RPT #: [id number] END OF REPORT [id number] 13:17:00 [facility] ([facility]) Pulmonology Progress Note REPORT#:[id number] REPORT STATUS: Signed DATE:01/06/21 TIME:1317 PATIENT: LORI DELUCA UNIT #: [id number] ROOM/BED: [place] [address] : [birth year] AGE: 55 SEX: F ATTEND: Alfred Escobedo MD ADM AUTHOR: Sergio Love * ALL edits or amendments must be made on the electronic/computer document * Subjective Chief Complaint: Comfortable on 4L/min NC No distress Up to chair Review of Systems ROS Respiratory: Reports: TOURE (dyspnea on exertion). Denies: pleuritic pain. Cardiovascular: Reports: TOURE (dyspnea on exertion). Denies: chest pain. GI: Denies: abdominal pain. : Denies: frequency, pelvic pain. Objective General VS/I O: Last Documented: Result Date Time Pulse Ox 97 [...] 1 Bowel Movements PATIENT WEIGHT: Weight (lb): 400 Weight (oz): 2.22 Weight (kg): 181.437 Medications: Active Meds + DC'd Last 24 Hrs Famotidine 20 MG BID PO Dexamethasone 10 MG BID PO Lisinopril 20 MG DAILY PO Sertraline HCl 50 MG DAILY PO Dextrose/Water 50 ML ONCE PRN IV (CKD) Insulin Human Lispro S/SCALE AC HS SUBQ Physical Exam Head/eyes: atraumatic, normocephalic Cardiovascular: normal heart sounds, normal S1/S2, regular rate rhythm, no rub , no gallop Respiratory/chest: aerating well, clear to auscultation, symmetric expansion Abdomen: soft, normal bowel sounds Musculoskeletal: full range of motion Neuro/KETTLE SKIMMER: alert, oriented X 3, CNII-XII intact Results Findings/Data: Laboratory Tests 01/06 01/06 01/05 01/05 1125 0718 2014 162 Chemistry POC Glucose (70 - 110 mg/dL) 166 H 134 H 298 H 207 H Diagnosis, Assessment Plan Hospital course to date: Impressions Acute hypoxic respiratory failure Pneumonia due to covid-19 infection Sleep apnea Morbid obesity Plan On 4 L/min NC, titrate and maintain oxygenation >92% CXR yesterday with improved bilateral opacities NIPPV PRN/QHS; refusing, S/p diamox s/p convalescent plasma, remdesivir, Antibiotics ID following Dexamethasone 10 mg BID PO Needs aggressive PT, IS GI prophylaxis SCDs Full code Ok for discharge from pulmonary stand point on remaining dexamethasone, home O2. at 1502 RPT #: [id number] END OF REPORT [id number] 13:17:00 [facility] Pulmonology Progress Note REPORT#:[id number] REPORT STATUS: Signed DATE:01/06/21 TIME:1316 PATIENT: LORI DELUCA UNIT #: [id number] ROOM/BED: [place] [address] : 67 AGE: 55 SEX: F ATTEND: Alfred Escobedo MD ADM AUTHOR: Sergio Love * ALL edits or amendments must be made on the electronic/computer document * Sergio Love 01/06/21 1317: Subjective Chief Complaint: Comfortable on 4L/min NC No distress Up to chair Review of Systems ROS Respiratory: Reports: TOURE (dyspnea on exertion). Denies: pleuritic pain. Cardiovascular: Reports: TOURE (dyspnea on exertion). Denies: chest pain. GI: Denies: abdominal pain. : Denies: frequency, pelvic pain. Objective General VS/I O: Last Documented: Result Date Time Pulse Ox 97 [...] 1 Bowel Movements PATIENT WEIGHT: Weight (lb): 400 Weight (oz): 2.22 Weight (kg): 181.437 Medications: Active Meds + DC'd Last 24 Hrs Famotidine 20 MG BID PO Dexamethasone 10 MG BID PO Lisinopril 20 MG DAILY PO Sertraline HCl 50 MG DAILY PO Dextrose/Water 50 ML ONCE PRN IV (CKD) Insulin Human Lispro S/SCALE AC HS SUBQ Physical Exam Head/eyes: atraumatic, normocephalic Cardiovascular: normal heart sounds, normal S1/S2, regular rate rhythm, no rub , no gallop Respiratory/chest: aerating well, clear to auscultation, symmetric expansion Abdomen: soft, normal bowel sounds Musculoskeletal: full range of motion Neuro/KETTLE SKIMMER: alert, oriented X 3, CNII-XII intact Results Findings/Data: Laboratory Tests 01/06 01/06 01/05 01/05 1125 0718 2014 162 Chemistry POC Glucose (70 - 110 mg/dL) 166 H 134 H 298 H 207 H Diagnosis, Assessment Plan Hospital course to date: Impressions Acute hypoxic respiratory failure Pneumonia due to covid-19 infection Sleep apnea Morbid obesity Plan On 4 L/min NC, titrate and maintain oxygenation >92% CXR yesterday with improved bilateral opacities NIPPV PRN/QHS; refusing, S/p diamox s/p convalescent plasma, remdesivir, Antibiotics ID following Dexamethasone 10 mg BID PO Needs aggressive PT, IS GI prophylaxis SCDs Full code Ok for discharge from pulmonary stand point on remaining dexamethasone, home O2. Daniel Tariq 01/06/21 2321: Diagnosis, Assessment Plan Hospital course to date: evaluated, discussed with PMO BUSINESS ANALYST . discussed plan Agree with above at 1502 RPT #: [id number] END OF REPORT [id number] 13:17:00 [facility] ([facility]) Pulmonology Progress Note REPORT#:[id number] REPORT STATUS: Signed DATE:01/06/21 TIME:1317 PATIENT: LORI DELUCA UNIT #: [id number] ROOM[facility]BED: [facility] : 67 AGE: 55 SEX: F ATTEND: Alfred Escobedo MD ADM AUTHOR: Sergio Love * ALL edits or amendments must be made on the electronic/computer document * Sergio Love 01/06/21 1317: Subjective Chief Complaint: Comfortable on 4L/min NC No distress Up to chair Review of Systems ROS Respiratory: Reports: TOURE (dyspnea on exertion). Denies: pleuritic pain. Cardiovascular: Reports: TOURE (dyspnea on exertion). Denies: chest pain. GI: Denies: abdominal pain. : Denies: frequency, pelvic pain. Objective General VS/I O: Last Documented: Result Date Time Pulse Ox 97 01/06 112 B/P 107/71 01/06 112 B/P Mean 83.0 01/06 112 O2 Delivery Nasal cannula 01/06 1127 Temp 36.6 01/06 112 Pulse 59 01/06 112 Resp 20 01/06 112 FiO2 40 01/06 0742 O2 Flow Rate 5 01/06 0742 24 hour I O ending at 0700: 01/06 0700 01/05 1900 Intake Total 360 Output Total Balance 360 Intake, Oral 360 Number 1 Bowel Movements PATIENT WEIGHT: Weight (lb): 400 Weight (oz): 2.22 Weight (kg): 181.437 Medications: Active Meds + DC'd Last 24 Hrs Famotidine 20 MG BID PO Dexamethasone 10 MG BID PO Lisinopril 20 MG DAILY PO Sertraline HCl 50 MG DAILY PO Dextrose/Water 50 ML ONCE PRN IV (CKD) Insulin Human Lispro S/SCALE AC HS SUBQ Physical Exam Head/eyes: atraumatic, normocephalic Cardiovascular: normal heart sounds, normal S1/S2, regular rate rhythm, no rub , no gallop Respiratory/chest: aerating well, clear to auscultation, symmetric expansion Abdomen: soft, normal bowel sounds Musculoskeletal: full range of motion Neuro/KETTLE SKIMMER: alert, oriented X 3, CNII-XII intact Results Findings/Data: Laboratory Tests 01/065 18 2014 162 Chemistry POC Glucose (70 - 110 mg/dL) 166 H 134 H 298 H 207 H Diagnosis, Assessment Plan Hospital course to date: Impressions Acute hypoxic respiratory failure Pneumonia due to covid-19 infection Sleep apnea Morbid obesity Plan On 4 L/min NC, titrate and maintain oxygenation >92% CXR yesterday with improved bilateral opacities NIPPV PRN/QHS; refusing, S/p diamox s/p convalescent plasma, remdesivir, Antibiotics ID following Dexamethasone 10 mg BID PO Needs aggressive PT, IS GI prophylaxis SCDs Full code Ok for discharge from pulmonary stand point on remaining dexamethasone, home O2. Daniel Tariq 01/06/21 2321: Diagnosis, Assessment Plan Hospital course to date: evaluated, discussed with PMO BUSINESS ANALYST . discussed plan Agree with above at 1502 RPT #: [id number] END OF REPORT [id number] 13:17:00 [facility] ([facility]) Pulmonology Progress Note REPORT#:[id number] REPORT STATUS: Signed DATE:01/06/21 TIME:1316 PATIENT: LORI DELUCA UNIT #: [id number] ROOM/BED: [place] [address] : 67 AGE: 55 SEX: F ATTEND: Alfred Escobedo MD ADM AUTHOR: Sergio Love * ALL edits or amendments must be made on the electronic/computer document * Sergio Love 01/06/21 1317: Subjective Chief Complaint: Comfortable on 4L/min NC No distress Up to chair Review of Systems ROS Respiratory: Reports: TOURE (dyspnea on exertion). Denies: pleuritic pain. Cardiovascular: Reports: TOURE (dyspnea on exertion). Denies: chest pain. GI: Denies: abdominal pain. : Denies: frequency, pelvic pain. Objective General VS/I O: Last Documented: Result Date Time Pulse Ox 97 01/06 1127 B/P 107/71 01/06 1127 B/P Mean 83.0 01/06 1127 O2 Delivery Nasal cannula 01/06 112 Temp 36.6 01/06 1127 Pulse 59 01/06 1127 Resp 20 01/06 112 FiO2 40 01/06 0742 O2 Flow Rate 5 01/06 0742 24 hour I O ending at 0700: 01/06 0700 01/05 1900 Intake Total 360 Output Total Balance 360 Intake, Oral 360 Number 1 Bowel Movements PATIENT WEIGHT: Weight (lb): 400 Weight (oz): 2.22 Weight (kg): 181.437 Medications: Active Meds + DC'd Last 24 Hrs Famotidine 20 MG BID PO Dexamethasone 10 MG BID PO Lisinopril 20 MG DAILY PO Sertraline HCl 50 MG DAILY PO Dextrose/Water 50 ML ONCE PRN IV (CKD) Insulin Human Lispro S/SCALE AC HS SUBQ Physical Exam Head/eyes: atraumatic, normocephalic Cardiovascular: normal heart sounds, normal S1/S2, regular rate rhythm, no rub , no gallop Respiratory/chest: aerating well, clear to auscultation, symmetric expansion Abdomen: soft, normal bowel sounds Musculoskeletal: full range of motion Neuro/KETTLE SKIMMER: alert, oriented X 3, CNII-XII intact Results Findings/Data: Laboratory Tests 01/06 01/06 01/05 01/05 1125 0718 2014 162 Chemistry POC Glucose (70 - 110 mg/dL) 166 H 134 H 298 H 207 H Diagnosis, Assessment Plan Hospital course to date: Impressions Acute hypoxic respiratory failure Pneumonia due to covid-19 infection Sleep apnea Morbid obesity Plan On 4 L/min NC, titrate and maintain oxygenation >92% CXR yesterday with improved bilateral opacities NIPPV PRN/QHS; refusing, S/p diamox s/p convalescent plasma, remdesivir, Antibiotics ID following Dexamethasone 10 mg BID PO Needs aggressive PT, IS GI prophylaxis SCDs Full code Ok for discharge from pulmonary stand point on remaining dexamethasone, home O2. Daniel Tariq 01/06/21 2321: Diagnosis, Assessment Plan Hospital course to date: evaluated, discussed with PMO BUSINESS ANALYST . discussed plan Agree with above at 1502 at 2321 RPT #: [id number] END OF REPORT [id number] 10:55:00 [facility] ([facility]) Richar/Oncology Progress Note REPORT#:[id number] REPORT STATUS: Signed DATE:01/06/21 TIME:1055 PATIENT: LORI DELUCA UNIT #: [id number] ROOM/BED: [place] [address] : 67 AGE: 55 SEX: F ATTEND: Alfred Escobedo MD ADM AUTHOR: Yanet Lim MD * ALL edits or amendments must be made on the electronic/computer document * Subjective Chief Complaint: Events noted SOB improving No overt bleeding Objective Physical Exam VS: Vital Signs Date Temp Pulse Resp B/P B/P Mean Pulse Ox FiO2 01/05-01/06 94.5-97.5 58-81 18-20 93-129/58-78 69.9-94.7 91-97 40 Last Documented: Result Date Time Pulse Ox 94 01/06 0742 FiO2 40 01/06 0742 O2 Delivery Nasal cannula 01/06 0742 O2 Flow Rate 5 01/06 0742 B/P 101/68 01/06 0724 B/P Mean 78.9 01/06 0724 Temp 97.3 01/06 0724 Pulse 81 01/06 0724 Resp 20 01/06 0724 General appearance: alert, awake, oriented HEENT: anicteric, atraumatic, pupils reactive to light Cardiovascular: regular rate and rhythm, normal heart sounds Respiratory: aerating well, clear to auscultation Abdomen: non-tender, normal bowel sounds, soft Extremities: moves all, no peripheral edema Neuro/KETTLE SKIMMER: alert, oriented X 3 skin intact Current Medications Medications: Active Meds + DC'd Last 24 Hrs Acetazolamide 250 MG Q12HR IV (DC) Sterile Water 2.5 ML Famotidine 20 MG BID PO Dexamethasone 10 MG BID PO Lisinopril 20 MG DAILY PO Sertraline HCl 50 MG DAILY PO Dextrose/Water 50 ML ONCE PRN IV (CKD) Insulin Human Lispro S/SCALE AC HS SUBQ Results Findings/Data: Laboratory Tests 01/06 1625 1205 Chemistry POC Glucose (70 - 110 mg/dL) 134 H 298 H 207 H 188 H Diagnosis, Assessment Plan Problem List/A P: 1. Pneumonia due to COVID-19 virus Free Text DxA P Notes Free Text DxA P Notes: 1. Thrombocytopenia, multifactorial in etiology secondary to consumption from acute illness, other differential includes disseminated intravascular coagulation, coagulopathy, medications, heparin-induced thrombocytopenia though suspicion is low. 2. COVID pneumonia. Management per primary team. 3. Acute hypoxic respiratory failure. 4. Sleep apnea. 5. Morbid obesity. RECOMMENDATIONS: 1. Check following lab for further evaluation: Peripheral smear, LDH, haptoglobin, retic count, B12, folate, TSH, XU, PT, PTT, fibrinogen. 2. Hold anticoagulation. 3. Mechanical anticoagulation. 4 Follow up on the HIT antibody panel. 5. Monitor CBC and transfuse to keep hemoglobin more than 7 and platelets more than 20 or higher if bleeding present. 6. Supportive care. 01/05 Platelets [place]. No coaglopathy or DIC Transsient thrombocytopenia due to consumption Follow up on pending labs 01/06/2021 Thrombocytopenia resolved. CBc normal Will sign off. at 1057 RPT #: [id number] END OF REPORT [id number] 16:04:00 [facility] Infectious Dis. Progress Note REPORT#:[id number] REPORT STATUS: Signed DATE:01/05/21 TIME:1604 PATIENT: LORI DELUCA UNIT #: [id number] ROOM/BED: [place] [address] : 67 AGE: 55 SEX: F ATTEND: Alfred Escobedo MD ADM AUTHOR: Annalisa Hernandez * ALL edits or amendments must be made on the electronic/computer document * Subjective Chief Complaint: Pneumonia HPI: Patient on 6L nasal cannula; speaking in full sentences; sitting in chair and conversant; afebrile; decreasing leukocytosis; CRP and Cr normal. Review of Systems Constitutional: Denies: chills, fatigue, fever. Objective General VS/I O: Last Documented: Result Date Time Pulse Ox 92 [...] 93-143/58-79 69.9-94.1 84-97 PATIENT WEIGHT: Weight (lb): 400 Weight (oz): 2.22 Weight (kg): 181.437 Physical Exam General appearance: alert, awake, oriented, no acute distress, conversational Head/Eyes: atraumatic, EOMI, normal conjunctiva/sclera, normocephalic Neck: full range of motion, non-tender Abdomen: non-tender, soft, no distention, no guarding Extremities: moves all, normal capillary refill, normal temperature Psychiatry: normal affect, normal judgment/insight, normal mood Diagnosis, Assessment Plan Free Text A P: Laboratory Tests 01/05/21 0600: [Embedded Image Not Available] Plt Count TNP 01/04/21 1000: [Embedded Image Not Available] Assessment: 1. Pneumonia with covid-19 s/p CV plasma and remdesivir. 2. Acute respiratory failure with hypoxia. 3. Morbid obesity. Plan: 1. Steroids. 2. Monitor inflammatory markers. CRP at normal levels. 3. Pt completed treatment with ceftriaxone. 4. Wean O2 as tolerated. 5. Patient clinically improving from ID standpoint. Thank you for this consult. at 1745 RPT #: [id number] END OF REPORT [id number] 16:04:00 [facility] ([facility]) Infectious Dis. Progress Note REPORT#:[id number] REPORT STATUS: Signed DATE:01/05/21 TIME:160 PATIENT: LORI DELUCA UNIT #: [id number] ROOM/BED: [place] [address] : 69 AGE: 55 SEX: F ATTEND: Alfred Escobedo MD ADM AUTHOR: Annalisa Hernandez * ALL edits or amendments must be made on the electronic/computer document * Annalisa Hernandez 01/05/21 1604: Subjective Chief Complaint: Pneumonia HPI: Patient on 6L nasal cannula; speaking in full sentences; sitting in chair and conversant; afebrile; decreasing leukocytosis; CRP and Cr normal. Review of Systems Constitutional: Denies: chills, fatigue, fever. Objective General VS/I O: Last Documented: Result Date Time Pulse Ox 92 [...] 93-143/58-79 69.9-94.1 84-97 PATIENT WEIGHT: Weight (lb): 400 Weight (oz): 2.22 Weight (kg): 181.437 Physical Exam General appearance: alert, awake, oriented, no acute distress, conversational Head/Eyes: atraumatic, EOMI, normal conjunctiva/sclera, normocephalic Neck: full range of motion, non-tender Abdomen: non-tender, soft, no distention, no guarding Extremities: moves all, normal capillary refill, normal temperature Psychiatry: normal affect, normal judgment/insight, normal mood Diagnosis, Assessment Plan Free Text A P: Laboratory Tests 01/05/21 0600: [Embedded Image Not Available] Plt Count TNP 01/04/21 1000: [Embedded Image Not Available] Assessment: 1. Pneumonia with covid-19 s/p CV plasma and remdesivir. 2. Acute respiratory failure with hypoxia. 3. Morbid obesity. Plan: 1. Steroids. 2. Monitor inflammatory markers. CRP at normal levels. 3. Pt completed treatment with ceftriaxone. 4. Wean O2 as tolerated. 5. Patient clinically improving from ID standpoint. Thank you for this consult. Rudy Aguilar 01/05/21 0775: Attestations Attestation needed: supervising physician Physician Attestation Agree w/findings plan: Agree with the findings and plan as documented by TERE Hernandez. Pt with severe covid-19 who has markedly improved, O2 requirements have been decreasing. Plan is to wean o2 as tolerated and steroids per pulmonary. at 1745 RPT #: [id number] END OF REPORT [id number] 16:04:00 [facility] ([facility]) Infectious Dis. Progress Note REPORT#:[id number] REPORT STATUS: Signed DATE:01/05/21 TIME:160 PATIENT: LORI DELUCA UNIT #: [id number] ROOM/BED: [place] [address] : 69 AGE: 55 SEX: F ATTEND: Alfred Escobedo MD ADM AUTHOR: Annalisa Hernandez * ALL edits or amendments must be made on the electronic/computer document * Annalisa Hernandez 01/05/21 1604: Subjective Chief Complaint: Pneumonia HPI: Patient on 6L nasal cannula; speaking in full sentences; sitting in chair and conversant; afebrile; decreasing leukocytosis; CRP and Cr normal. Review of Systems Constitutional: Denies: chills, fatigue, fever. Objective General VS/I O: Last Documented: Result Date Time Pulse Ox 92 [...] 93-143/58-79 69.9-94.1 84-97 PATIENT WEIGHT: Weight (lb): 400 Weight (oz): 2.22 Weight (kg): 181.437 Physical Exam General appearance: alert, awake, oriented, no acute distress, conversational Head/Eyes: atraumatic, EOMI, normal conjunctiva/sclera, normocephalic Neck: full range of motion, non-tender Abdomen: non-tender, soft, no distention, no guarding Extremities: moves all, normal capillary refill, normal temperature Psychiatry: normal affect, normal judgment/insight, normal mood Diagnosis, Assessment Plan Free Text A P: Laboratory Tests 01/05/21 0600: [Embedded Image Not Available] Plt Count TNP 01/04/21 1000: [Embedded Image Not Available] Assessment: 1. Pneumonia with covid-19 s/p CV plasma and remdesivir. 2. Acute respiratory failure with hypoxia. 3. Morbid obesity. Plan: 1. Steroids. 2. Monitor inflammatory markers. CRP at normal levels. 3. Pt completed treatment with ceftriaxone. 4. Wean O2 as tolerated. 5. Patient clinically improving from ID standpoint. Thank you for this consult. Rudy Aguilar 01/05/21 1855: Attestations Attestation needed: supervising physician Physician Attestation Agree w/findings plan: Agree with the findings and plan as documented by TERE Hernandez. Pt with severe covid-19 who has markedly improved, O2 requirements have been decreasing. Plan is to wean o2 as tolerated and steroids per pulmonary. at 1745 at 2496 RPT #: [id number] END OF REPORT [id number] 12:44:00 [facility] Hospitalist Progress Note REPORT#:[id number] REPORT STATUS: Signed DATE:01/05/21 TIME:1244 PATIENT: LORI DELUCA UNIT #: [id number] ROOM/BED: [place] [address] : 69 AGE: 55 SEX: F ATTEND: Alfred Escobedo MD ADM AUTHOR: Yandy Johnson MD * ALL edits or amendments must be made on the electronic/computer document * Subjective Chief Complaint: stable. On oxygen currently 6 L Denies any chest pain or shortness of breath Review of Systems Cardiovascular: Denies: chest pain. GI: Denies: nausea, vomiting. Objective General VS/I O: Vital Signs: Date Time Temp Pulse Resp B/P B/P Pulse O2 O2 Flow FiO2 Mean Ox Delivery Rate 01/05 0811 High flow 8 nasal cannula 01/05 0805 36.4 84 20 109/69 82.5 91 Nasal cannula 01/05 0757 97 High flow 8 nasal cannula 01/05 0448 36.4 57 20 118/79 91.8 92 01/05 0018 36.4 52 20 128/75 92.6 95 01/04 2211 57 92 06/20 2124 94 Nasal 8 cannula 01/05 2024 36.4 59 20 105/62 76.7 87 01/05 2000 Nasal 8 cannula 01/04 1645 60 17 143/70 94.1 84 Room air 01/04 1505 94 Nasal 7 48 cannula PATIENT WEIGHT: Weight (lb): 400 Weight (oz): 2.22 Weight (kg): 181.437 Physical Exam General appearance: alert, awake Neck: non-tender, no JVD Cardiovascular: regular rate rhythm, no murmur, no rub, no thrill Respiratory: decreased breath sounds, hypoxia Abdomen: non-tender, normal bowel sounds, soft, no distention, no guarding Extremities: moves all, no edema Neuro/KETTLE SKIMMER: alert, oriented X 3, normal speech, no motor deficits, no sensory deficits Diagnosis, Assessment Plan Free Text DxA P Notes Free text DxA P notes: Acute hypoxic respiratory failure with COVID-19 pneumonia We will admit the patient Start the patient on steroids We will hold off on antibiotics as patient is afebrile white count is normal we will try to get CT scan of the chest to see if there are some infiltrates or not. We will get CT of the chest to assess the infiltrates As D-dimer is elevated and troponins are elevated will continue with therapeutic anticoagulation Symptomatic management We will ask infectious disease and pulmonary to evaluate Started the patient on remdesivir Continue supplemental oxygen to keep O2 sat above 90% and monitor respiratory status closely Proning NSTEMI Possibly type II in the setting of COVID-19 pneumonia with hypoxia. We will continue to trend troponins. Keep the patient on aspirin statin. We will get an echocardiogram. Monitor on telemetry. Hypertension Resume lisinopril monitor blood pressure keep on as needed hydralazine Prediabetes Now that the patient will be on steroids we will keep on insulin sliding scale monitor blood sugars keep on diabetic diet COPD Does not appear to be in COPD exacerbation will be on steroids supplemental oxygen. Monitor respiratory status closely. Pulmonary on board. DVT GI prophylaxis Patient is full code Patient was explained the plan in detail all medication effect side effects were discussed all was well associated with the plan Next of kin sister Madelyn ferguson [phone] 12/28/2020 Covid 19 Pneumonia COPD HTN DM Morbid Obesity Plan ----- -Continue on remdesevir -Continue COVID treatment protocol ( steroids, vit c/d/zinc) -Prone positioning as tolerated -Monitor inflammatory markers -Hiflow oxygen prn -Pulm and ID following -Accuchecks with ISS -Diabetic diet -Ensure tight glucose control -Resume home meds for BP control -Dispo-pendng completion of therapy and clinical improvement 12/30/2020 - acute respiratory failure secondary to covid. 15 L high flow oxygen, wean as tolerated, cont steriod/remdesivir. PUl following - Covid 19 Pneumonia. ID following - COPD, neb tx - HTN; cont home med - DM; SSI - Morbid Obesity; lifestyle modification - Depression. zoloft - Debility. PT to mobilize DVT/PPX - lovenox plan. cont remdesivir/wean oxygen Was moved to ICU yesterday as was repeatedly taken off oxygen, currently more stable and on my evaluation is keeping on her oxygen If stable can downgrade to IMCU 12/31/2020 - acute respiratory failure secondary to covid. 15 L high flow oxygen, wean as tolerated, cont steriod/remdesivir. There is day 3 of remdesivir. - Covid 19 Pneumonia. ID following - COPD, neb tx - HTN; cont home med - DM; SSI - Morbid Obesity; lifestyle modification - Depression. zoloft - Debility. PT to mobilize DVT/PPX - lovenox weight-based plan. cont remdesivir/wean oxygen Currently in IMCU, if can wean oxygen down to 10 L, will transfer to telemetry CODE STATUS Full code Noted patient has no official past medical power of preventive medicine officer but and next of kin is her sister Madelyn Ferguson which she told me can make decisions for her if he ever becomes incapacitated. 01/01/2021 - acute respiratory failure secondary to covid. 15 L high flow oxygen, wean as tolerated, cont steriod/remdesivir. - Covid 19 Pneumonia. ID following - COPD, neb tx - HTN; cont home med - DM; SSI - Morbid Obesity; lifestyle modification - Depression. zoloft - Debility. PT to mobilize DVT/PPX - lovenox weight-based plan. cont remdesivir/wean oxygen Currently in IMCU, if can wean oxygen down to 10 L, will transfer to telemetry [place]LENE pa CODE STATUS Full code 01/02/2021 - acute respiratory failure secondary to covid. 12 L high flow oxygen, wean as tolerated, cont steriod S/p remdesivir - Covid 19 Pneumonia. ID following - COPD, neb tx - HTN; cont home med - DM; SSI - Morbid Obesity; lifestyle modification - Depression. zoloft - Debility. PT to mobilize DVT/PPX - lovenox weight-based Continue to wean oxygen Currently in IM, can transfer to telemetry today 01/03/2021 - acute respiratory failure secondary to covid. 10 L high flow oxygen, wean as tolerated, cont steriod S/p remdesivir - Covid 19 Pneumonia. ID following -Worsening thrombocytopenia, platelet 7 today, discontinue Lovenox , get HIT panel and consult hematology - COPD, neb tx - HTN; cont home med - DM; SSI - Morbid Obesity; lifestyle modification - Depression. zoloft - Debility. PT DVT/PPX -DC Lovenox because of thrombocytopenia, do SCD Continue to wean oxygen Currently in IM, can transfer to telemetry today, will also consult physical therapy for home health and once we can get her oxygen requirements down to 5 L plan discharge CODE STATUS Full code 01/04/2021 - acute respiratory failure secondary to covid. 7 L high flow oxygen, wean as tolerated, cont steriod S/p remdesivir - Covid 19 Pneumonia. ID following -Worsening thrombocytopenia, platelet 137 today, discontinue Lovenoxd yesterday, his platelet was 37 yesterday, but now back to normal., Follow HIT panel, follow hematology recommendation - COPD, neb tx - HTN; cont home med - DM; SSI - Morbid Obesity; lifestyle modification - Depression. zoloft - Debility. PT DVT/PPX -DCd Lovenox because of thrombocytopenia, do SCD Continue to wean oxygen Patient has no insurance so cannot do home health,, and once we can get her oxygen requirements down to 5 L plan discharge CODE STATUS Full code 01/05/2021 - acute respiratory failure secondary to covid. 6 L high flow oxygen, wean as tolerated, cont steriod S/p remdesivir - Covid 19 Pneumonia. ID following -Worsening thrombocytopenia, platelet 137 today, discontinue Lovenoxd yesterday, his platelet was 37 01/03, but now back to normal., Follow HIT panel, follow hematology recommendation - COPD, neb tx - HTN; cont home med - DM; SSI - Morbid Obesity; lifestyle modification - Depression. zoloft - Debility. PT DVT/PPX -DCd Lovenox because of thrombocytopenia, do SCD Continue to wean oxygen Patient has no insurance so cannot do home health,, and once we can get her oxygen requirements down to 5 L plan discharge CODE STATUS Full code Noted patient has no official past medical power of preventive medicine officer but and next of kin is her sister Madelyn Ferguson which she told me can make decisions for her if he ever becomes incapacitated. at 1246 RPT #: [id number] END OF REPORT [id number] 12:30:00 [facility]) Pulmonology Progress Note REPORT#:[id number] REPORT STATUS: Signed DATE:01/05/21 TIME:1230 PATIENT: LORI DELUCA UNIT #: [id number] ROOM/BED: [place] [address] : 67 AGE: 55 SEX: F ATTEND: Alfred Escobedo MD ADM AUTHOR: Sergio Love * ALL edits or amendments must be made on the electronic/computer document * Subjective Chief Complaint: Comfortable on 6L/min NC Did not wear her BiPAP overnight, refusing Appears sluggish/fatigued today Review of Systems ROS Respiratory: Reports: TOURE (dyspnea on exertion). Denies: pleuritic pain. Cardiovascular: Reports: TOURE (dyspnea on exertion). Denies: chest pain. GI: Denies: abdominal pain. : Denies: frequency, pelvic pain. Objective General VS/I O: Last Documented: Result Date Time O2 Delivery High flow nasal cannula 01/05 0811 O2 Flow Rate 8 01/05 0811 Pulse Ox 91 01/05 0805 B/P 109/69 01/05 0805 B/P Mean 82.5 01/05 0805 Temp 36.4 01/05 0805 Pulse 84 01/05 0805 Resp 20 01/05 0805 FiO2 48 01/04 1505 PATIENT WEIGHT: Weight (lb): 400 Weight (oz): 2.22 Weight (kg): 181.437 Medications: Active Meds + DC'd Last 24 Hrs Acetazolamide 250 MG Q12HR IV (DC) Sterile Water 2.5 ML Famotidine 20 MG BID PO Dexamethasone 10 MG BID PO Benzonatate 100 MG TID PO (DC) Lisinopril 20 MG DAILY PO Sertraline HCl 50 MG DAILY PO Dextrose/Water 50 ML ONCE PRN IV (CKD) Insulin Human Lispro S/SCALE AC HS SUBQ Physical Exam Head/eyes: atraumatic, normocephalic Cardiovascular: normal heart sounds, normal S1/S2, regular rate rhythm, no rub , no gallop Respiratory/chest: aerating well, clear to auscultation, symmetric expansion Abdomen: soft, normal bowel sounds Musculoskeletal: full range of motion Neuro/KETTLE SKIMMER: alert, oriented X 3, CNII-XII intact Results Findings/Data: Laboratory Tests 01/05/21 0943: [Embedded Image Not Available] 01/05/21 0600: [Embedded Image Not Available] Laboratory Tests 01/05 01/05 01/05 01/04 01/04 1205 0716 0600 2023 1640 Chemistry POC Glucose (70 - 110 mg/dL) 188 H 168 H 287 H 243 H C-Reactive Protein (0.000 - 0.3 < 0.290 MG/DL) Laboratory Tests 01/05 01/05 0943 0600 Hematology WBC (3.5 - 11.0 K/mm3) 11.6 H RBC (4.70 - 6.10 M/mm3) 5.92 Hgb (10.4 - 14.9 G/DL) 15.8 H Hct (31.5 - 44.1 %) 52.3 H MCV (84.5 - 98.6 Fl) 88.3 MCH (27.0 - 34.2 pg) 26.7 L MCHC (31.5 - 34.0 G/DL) 30.2 L Plt Count (150 - 450 K/mm3) 271 Radiology data: Recent Impressions: RADIOLOGY - XR CHEST 1 V 01/05 1052 Report Impression - Status: SIGNED Entered: 01/05/2021 1136 IMPRESSION: Improved appearance of diffuse mixed pulmonary opacities. Location: R16 Impression By: Gertrude - Anuel Sandoval M.D. Diagnosis, Assessment Plan Hospital course to date: Impressions Acute hypoxic respiratory failure Pneumonia due to covid-19 infection Sleep apnea Morbid obesity Plan On 6 L HF NC, titrate and maintain oxygenation >92% NIPPV PRN/QHS; refusing, S/p diamox, Check AM VBG s/p convalescent plasma, remdesivir, Antibiotics, ID following Dexamethasone 10 mg BID PO Needs aggressive PT, IS GI prophylaxis SCDs Full code at 1233 RPT #: [id number] END OF REPORT [id number] 12:30:00 [facility]) Pulmonology Progress Note REPORT#:[id number] REPORT STATUS: Signed DATE:01/05/21 TIME:1230 PATIENT: LORI DELUCA UNIT #: [id number] ROOM/BED: [place] [address] : 69 AGE: 55 SEX: F ATTEND: Alfred Escobedo MD ADM AUTHOR: Sergio Love * ALL edits or amendments must be made on the electronic/computer document * Sergio Love 01/05/21 1230: Subjective Chief Complaint: Comfortable on 6L/min NC Did not wear her BiPAP overnight, refusing Appears sluggish/fatigued today Review of Systems ROS Respiratory: Reports: TOURE (dyspnea on exertion). Denies: pleuritic pain. Cardiovascular: Reports: TOURE (dyspnea on exertion). Denies: chest pain. GI: Denies: abdominal pain. : Denies: frequency, pelvic pain. Objective General VS/I O: Last Documented: Result Date Time O2 Delivery High flow nasal cannula 01/05 0811 O2 Flow Rate 8 01/05 0811 Pulse Ox 91 01/05 0805 B/P 109/69 01/05 0805 B/P Mean 82.5 01/05 0805 Temp 36.4 01/05 0805 Pulse 84 01/05 0805 Resp 20 01/05 0805 FiO2 48 01/04 1505 PATIENT WEIGHT: Weight (lb): 400 Weight (oz): 2.22 Weight (kg): 181.437 Medications: Active Meds + DC'd Last 24 Hrs Acetazolamide 250 MG Q12HR IV (DC) Sterile Water 2.5 ML Famotidine 20 MG BID PO Dexamethasone 10 MG BID PO Benzonatate 100 MG TID PO (DC) Lisinopril 20 MG DAILY PO Sertraline HCl 50 MG DAILY PO Dextrose/Water 50 ML ONCE PRN IV (CKD) Insulin Human Lispro S/SCALE AC HS SUBQ Physical Exam Head/eyes: atraumatic, normocephalic Cardiovascular: normal heart sounds, normal S1/S2, regular rate rhythm, no rub , no gallop Respiratory/chest: aerating well, clear to auscultation, symmetric expansion Abdomen: soft, normal bowel sounds Musculoskeletal: full range of motion Neuro/KETTLE SKIMMER: alert, oriented X 3, CNII-XII intact Results Findings/Data: Laboratory Tests 01/05/21 0943: [Embedded Image Not Available] 01/05/21 0600: [Embedded Image Not Available] Laboratory Tests 01/05 01/05 01/05 01/04 01/04 1205 0716 0600 2023 1640 Chemistry POC Glucose (70 - 110 mg/dL) 188 H 168 H 287 H 243 H C-Reactive Protein (0.000 - 0.3 < 0.290 MG/DL) Laboratory Tests 01/05 01/05 0943 0600 Hematology WBC (3.5 - 11.0 K/mm3) 11.6 H RBC (4.70 - 6.10 M/mm3) 5.92 Hgb (10.4 - 14.9 G/DL) 15.8 H Hct (31.5 - 44.1 %) 52.3 H MCV (84.5 - 98.6 Fl) 88.3 MCH (27.0 - 34.2 pg) 26.7 L MCHC (31.5 - 34.0 G/DL) 30.2 L Plt Count (150 - 450 K/mm3) 271 Radiology data: Recent Impressions: RADIOLOGY - XR CHEST 1 V 01/05 1052 Report Impression - Status: SIGNED Entered: 01/05/2021 1136 IMPRESSION: Improved appearance of diffuse mixed pulmonary opacities. Location: R16 Impression By: Gertrude - Anuel Sandoval M.D. Diagnosis, Assessment Plan Hospital course to date: Impressions Acute hypoxic respiratory failure Pneumonia due to covid-19 infection Sleep apnea Morbid obesity Plan On 6 L HF NC, titrate and maintain oxygenation >92% NIPPV PRN/QHS; refusing, S/p diamox, Check AM VBG s/p convalescent plasma, remdesivir, Antibiotics, ID following Dexamethasone 10 mg BID PO Needs aggressive PT, IS GI prophylaxis SCDs Full code Daniel Tariq 01/05/21 2258: Diagnosis, Assessment Plan Hospital course to date: evaluated, discussed with PMO BUSINESS ANALYST . discussed plan Agree with above at 1233 at 2258 RPT #: [id number] END OF REPORT [id number] 09:54:00 [facility]/Oncology Progress Note REPORT#:[id number] REPORT STATUS: Signed DATE:01/05/21 TIME:953 PATIENT: LORI DELUCA UNIT #: [id number] ROOM/BED: [place] [address] : 69 AGE: 55 SEX: F ATTEND: Alfred Escobedo MD ADM AUTHOR: Yanet Lim MD * ALL edits or amendments must be made on the electronic/computer document * Subjective Chief Complaint: Events noted SOB improving No overt bleeding Objective Physical Exam VS: Vital Signs Date Temp Pulse Resp B/P [...] 1505 General appearance: respiratory support, alert, awake, oriented HEENT: anicteric, atraumatic, pupils reactive to light Cardiovascular: regular rate and rhythm, normal heart sounds Respiratory: aerating well, clear to auscultation Abdomen: non-tender, normal bowel sounds, soft Extremities: moves all, no peripheral edema Neuro/KETTLE SKIMMER: alert, oriented X 3 skin intact Current Medications Medications: Active Meds + DC'd Last 24 Hrs Acetazolamide 250 MG Q12HR IV Sterile Water 2.5 ML Famotidine 20 MG BID PO Dexamethasone 10 MG BID PO Benzonatate 100 MG TID PO (DC) Lisinopril 20 MG DAILY PO Sertraline HCl 50 MG DAILY PO Dextrose/Water 50 ML ONCE PRN IV (CKD) Insulin Human Lispro S/SCALE AC HS SUBQ Results Findings/Data: Laboratory Tests 01/05/21 0600: [Embedded Image Not Available] 01/04/21 1000: [Embedded Image Not Available] Laboratory Tests 01/05 01/05 01/04 01/04 01/04 0716 0600 2024 1640 1103 Chemistry POC Glucose (70 - 110 mg/dL) 168 H 287 H 243 H 215 H C-Reactive Protein (0.000 - 0.3 < 0.290 MG/DL) 01/04 01/04 1000 1000 Chemistry Sodium (134 [...] (0.8 - 1.2 INR Unit) 1.05 PTT (Lee) (26 - 35 SECONDS) 38.4 H PT [...] (Auto) (20.5 - 51.1 %) 11.0 L [place] % (Auto) (1.7 - 9.3 %) 4.5 Eos % (Auto) (0.0 - 6.0 %) 0.0 Baso % (Auto) (0.0 - 2.0 %) 0.2 Neut # (Auto) (1.8 - 7.6 K/mm3) 9.6 H Lymph # (Auto) (0.6 - 3.2 K/mm3) 1.3 [place] # (Auto) (0.3 - 1.1 K/mm3) 0.6 Eos # (Auto) (0.0 - 0.4 K/mm3) 0.0 Baso # (Auto) (0.0 - 0.1 K/mm3) 0.0 Abs Immat Gran (auto) (0.00 - 0.03 x10 3/uL) 0.62 H Immature Gran % (0.0 - 5.0 %) 5.1 H Nucleated RBC % (0.0 - 1.0 /100WBC%) 0.2 Diagnosis, Assessment Plan Problem List/A P: 1. Pneumonia due to COVID-19 virus Free Text DxA P Notes Free Text DxA P Notes: 1. Thrombocytopenia, multifactorial in etiology secondary to consumption from acute illness, other differential includes disseminated intravascular coagulation, coagulopathy, medications, heparin-induced thrombocytopenia though suspicion is low. 2. COVID pneumonia. Management per primary team. 3. Acute hypoxic respiratory failure. 4. Sleep apnea. 5. Morbid obesity. RECOMMENDATIONS: 1. Check following lab for further evaluation: Peripheral smear, LDH, haptoglobin, retic count, B12, folate, TSH, XU, PT, PTT, fibrinogen. 2. Hold anticoagulation. 3. Mechanical anticoagulation. 4 Follow up on the HIT antibody panel. 5. Monitor CBC and transfuse to keep hemoglobin more than 7 and platelets more than 20 or higher if bleeding present. 6. Supportive care. 01/05 Platelets [place]. No coaglopathy or DIC Transsient thrombocytopenia due to consumption Follow up on pending labs at 0957 [facility] #: [id number] END OF REPORT [id number] 14:25:00 [facility]) Pulmonology Progress Note REPORT#:[id number] REPORT STATUS: Signed DATE:01/04/21 TIME:142 PATIENT: LORI DELUCA UNIT #: [id number] ROOM/BED: [place] [address] : 69 AGE: 55 SEX: F ATTEND: Alfred Escobedo MD ADM AUTHOR: Sonal Voss * ALL edits or amendments must be made on the electronic/computer document * Subjective Chief Complaint: 7L/min HF NC, no distress BIPAP at night and PRN Review of Systems ROS Constitutional: Denies: generalized weakness. Skin: Denies: contusion, ecchymosis. Allergy/Immun: Denies: hives, itching. Eyes: Denies: visual loss/blurred, diplopia. Respiratory: Reports: TOURE (dyspnea on exertion). Denies: pleuritic pain. Cardiovascular: Reports: TOURE (dyspnea on exertion). Denies: chest pain. GI: Denies: abdominal pain. : Denies: frequency, pelvic pain. Musculoskeletal: Denies: joint pain, myalgias. Heme: Denies: bleeding, petechiae. Endocrine: Denies: heat intolerance, polyphagia. Neuro: Denies: confusion, headache. Objective General VS/I O: Last Documented: Result Date Time Pulse Ox [...] Urine 800 2600 PATIENT WEIGHT: Weight (lb): 400 Weight (oz): 2.22 Weight (kg): 181.437 Medications: Active Meds + DC'd Last 24 Hrs Acetazolamide 250 MG Q12HR IV Sterile Water 2.5 ML Famotidine 20 MG BID PO Dexamethasone 10 MG BID PO Benzonatate 100 MG TID PO (DC) Ceftriaxone Sodium 1,000 MG Q24H IV (DC) Sterile Water 10 ML Lisinopril 20 MG DAILY PO Sertraline HCl 50 MG DAILY PO Dextrose/Water 50 ML ONCE PRN IV (CKD) Insulin Human Lispro S/SCALE AC HS SUBQ Nutrition assessment: The data set between the solid lines has been imported from the dietitian's assessment. Any exceptions have been noted under Provider comments. BMI Calculated: 75.6 Nutrition related diagnosis: Nutrition diagnosis details: Nutrition problem: Nutrition etiology: Nutrition signs and symptoms: Nutrition prescription: Dietitian name: Assessment completed: Provider comments on imported dietitian assessment: Physical Exam General appearance: obese Head/eyes: atraumatic, normocephalic ENT: ENT: normal nose, normal sinus Cardiovascular: normal heart sounds, normal S1/S2, regular rate rhythm, no rub , no gallop Respiratory/chest: aerating well, clear to auscultation, symmetric expansion Abdomen: soft, normal bowel sounds Extremities: edema, no cyanosis, no edema Musculoskeletal: full range of motion Neuro/KETTLE SKIMMER: alert, oriented X 3, CNII-XII intact Psychiatry: normal affect, normal judgment/insight Results Findings/Data: Laboratory Tests 01/04/21 1000: [Embedded Image Not Available] Laboratory Tests 01/04 01/04 01/04 01/04 1103 1000 1000 0744 Chemistry Sodium (134 - 147 mmol/L) 138 [...] 9.0 Lactate Dehydrogenase (84 - 246 437 H Unit/L) TSH (0.340 - 4.820 mcIU/ML) 1.460 01/03 [...] (150 - 450 K/mm3) 173 Diagnosis, Assessment Plan Hospital course to date: Impressions Acute hypoxic respiratory failure Pneumonia due to covid-19 infection Sleep apnea Morbid obesity Plan on 7 L HF NC, titrate and maintain oxygenation >92% NIPPV PRN/HS s/p convalescent plasma, remdesivir, Antibiotics, ID following Dexamethasone 10 mg BID po Gi prophylaxis DVT, off lovenox Diamox 250 IV every 12 hours for 4 doses to dampen bicarb, 08/21 full code at 1431 RPT #: [id number] END OF REPORT [id number] 14:25:00 [facility]) Pulmonology Progress Note REPORT#:[id number] REPORT STATUS: Signed DATE:01/04/21 TIME:142 PATIENT: LORI DELUCA UNIT #: [id number] ROOM/BED: [place] [address] : 69 AGE: 55 SEX: F ATTEND: Alfred Escobedo MD ADM AUTHOR: Sonal Voss * ALL edits or amendments must be made on the electronic/computer document * Sonal Voss 01/04/21 1425: Subjective Chief Complaint: 7L/min HF NC, no distress BIPAP at night and PRN Review of Systems ROS Constitutional: Denies: generalized weakness. Skin: Denies: contusion, ecchymosis. Allergy/Immun: Denies: hives, itching. Eyes: Denies: visual loss/blurred, diplopia. Respiratory: Reports: TOURE (dyspnea on exertion). Denies: pleuritic pain. Cardiovascular: Reports: TOURE (dyspnea on exertion). Denies: chest pain. GI: Denies: abdominal pain. : Denies: frequency, pelvic pain. Musculoskeletal: Denies: joint pain, myalgias. Heme: Denies: bleeding, petechiae. Endocrine: Denies: heat intolerance, polyphagia. Neuro: Denies: confusion, headache. Objective General VS/I O: Last Documented: Result Date Time Pulse Ox [...] Urine 800 2600 PATIENT WEIGHT: Weight (lb): 400 Weight (oz): 2.22 Weight (kg): 181.437 Medications: Active Meds + DC'd Last 24 Hrs Acetazolamide 250 MG Q12HR IV Sterile Water 2.5 ML Famotidine 20 MG BID PO Dexamethasone 10 MG BID PO Benzonatate 100 MG TID PO (DC) Ceftriaxone Sodium 1,000 MG Q24H IV (DC) Sterile Water 10 ML Lisinopril 20 MG DAILY PO Sertraline HCl 50 MG DAILY PO Dextrose/Water 50 ML ONCE PRN IV (CKD) Insulin Human Lispro S/SCALE AC HS SUBQ Nutrition assessment: The data set between the solid lines has been imported from the dietitian's assessment. Any exceptions have been noted under Provider comments. BMI Calculated: 75.6 Nutrition related diagnosis: Nutrition diagnosis details: Nutrition problem: Nutrition etiology: Nutrition signs and symptoms: Nutrition prescription: Dietitian name: Assessment completed: Provider comments on imported dietitian assessment: Physical Exam General appearance: obese Head/eyes: atraumatic, normocephalic ENT: ENT: normal nose, normal sinus Cardiovascular: normal heart sounds, normal S1/S2, regular rate rhythm, no rub , no gallop Respiratory/chest: aerating well, clear to auscultation, symmetric expansion Abdomen: soft, normal bowel sounds Extremities: edema, no cyanosis, no edema Musculoskeletal: full range of motion Neuro/KETTLE SKIMMER: alert, oriented X 3, CNII-XII intact Psychiatry: normal affect, normal judgment/insight Results Findings/Data: Laboratory Tests 01/04/21 1000: [Embedded Image Not Available] Laboratory Tests 01/04 01/04 01/04 01/04 1103 1000 1000 0744 Chemistry Sodium (134 - 147 mmol/L) 138 [...] 9.0 Lactate Dehydrogenase (84 - 246 437 H Unit/L) TSH (0.340 - 4.820 mcIU/ML) 1.460 01/03 01/03 2032 1613 Chemistry POC Glucose (70 - 110 mg/dL) 203 H 224 H Laboratory Tests 01/04 1000 Coagulation INR (0.8 - 1.2 INR Unit) 1.05 PTT (Lee) (26 - 35 SECONDS) 38.4 H PT [...] (150 - 450 K/mm3) 173 Diagnosis, Assessment Plan Hospital course to date: Impressions Acute hypoxic respiratory failure Pneumonia due to covid-19 infection Sleep apnea Morbid obesity Plan on 7 L HF NC, titrate and maintain oxygenation >92% NIPPV PRN/HS s/p convalescent plasma, remdesivir, Antibiotics, ID following Dexamethasone 10 mg BID po Gi prophylaxis DVT, off lovenox Diamox 250 IV every 12 hours for 4 doses to dampen bicarb, 2/ full code Maicol Louise 01/04/21 1702: Diagnosis, Assessment Plan Hospital course to date: I reviewed the chart, examined the patient, I discussed the case with housestaff , I agree with above at 1431 at 1702 RPT #: [id number] END OF REPORT [id number] 11:42:00 [facility] Hospitalist Progress Note REPORT#:[id number] REPORT STATUS: Signed DATE:01/04/21 TIME:1142 PATIENT: LORI DELUCA UNIT #: [id number] ROOM/BED: [place] [address] : 69 AGE: 55 SEX: F ATTEND: Alfred Escobedo MD ADM AUTHOR: Yandy Johnson MD * ALL edits or amendments must be made on the electronic/computer document * Subjective Chief Complaint: stable. On oxygen currently 7 L Denies any chest pain or shortness of breath Review of Systems Respiratory: Reports: non productive cough. Cardiovascular: Denies: chest pain. GI: Denies: nausea, vomiting. Objective General VS/I O: Vital Signs: Date Time Temp Pulse Resp B/P B/P Pulse O2 O2 Flow FiO2 Mean Ox Delivery Rate 01/04 1107 36.4 61 18 105/75 84.8 94 Nasal cannula 01/04 0936 High flow 8 nasal cannula 01/04 0747 70 16 140/75 96.9 92 Nasal cannula 01/04 0510 36.7 56 18 117/78 91.2 96 01/04 0021 High flow 7 nasal cannula 01/036 36.4 66 19 111/76 87 90 High [...] Urine 800 2600 PATIENT WEIGHT: Weight (lb): 400 Weight (oz): 2.22 Weight (kg): 181.437 Physical Exam Cardiovascular: regular rate rhythm, no murmur, no rub, no thrill Respiratory: decreased breath sounds, hypoxia Abdomen: non-tender, normal bowel sounds, soft, no distention, no guarding Extremities: moves all, no edema Neuro/KETTLE SKIMMER: alert, oriented X 3, normal speech, no motor deficits, no sensory deficits Psychiatry: normal affect Diagnosis, Assessment Plan Free Text DxA P Notes Free text DxA P notes: Acute hypoxic respiratory failure with COVID-19 pneumonia We will admit the patient Start the patient on steroids We will hold off on antibiotics as patient is afebrile white count is normal we will try to get CT scan of the chest to see if there are some infiltrates or not. We will get CT of the chest to assess the infiltrates As D-dimer is elevated and troponins are elevated will continue with therapeutic anticoagulation Symptomatic management We will ask infectious disease and pulmonary to evaluate Started the patient on remdesivir Continue supplemental oxygen to keep O2 sat above 90% and monitor respiratory status closely Proning NSTEMI Possibly type II in the setting of COVID-19 pneumonia with hypoxia. We will continue to trend troponins. Keep the patient on aspirin statin. We will get an echocardiogram. Monitor on telemetry. Hypertension Resume lisinopril monitor blood pressure keep on as needed hydralazine Prediabetes Now that the patient will be on steroids we will keep on insulin sliding scale monitor blood sugars keep on diabetic diet COPD Does not appear to be in COPD exacerbation will be on steroids supplemental oxygen. Monitor respiratory status closely. Pulmonary on board. DVT GI prophylaxis Patient is full code Patient was explained the plan in detail all medication effect side effects were discussed all was well associated with the plan Next of kin sister Madelyn ferguson [phone] 12/28/2020 Covid 19 Pneumonia COPD HTN DM Morbid Obesity Plan ----- -Continue on remdesevir -Continue COVID treatment protocol ( steroids, vit c/d/zinc) -Prone positioning as tolerated -Monitor inflammatory markers -Hiflow oxygen prn -Pulm and ID following -Accuchecks with ISS -Diabetic diet -Ensure tight glucose control -Resume home meds for BP control -Dispo-pendng completion of therapy and clinical improvement 12/30/2020 - acute respiratory failure secondary to covid. 15 L high flow oxygen, wean as tolerated, cont steriod/remdesivir. PUl following - Covid 19 Pneumonia. ID following - COPD, neb tx - HTN; cont home med - DM; SSI - Morbid Obesity; lifestyle modification - Depression. zoloft - Debility. PT to mobilize DVT/PPX - lovenox plan. cont remdesivir/wean oxygen Was moved to ICU yesterday as was repeatedly taken off oxygen, currently more stable and on my evaluation is keeping on her oxygen If stable can downgrade to IMCU 12/31/2020 - acute respiratory failure secondary to covid. 15 L high flow oxygen, wean as tolerated, cont steriod/remdesivir. There is day 3 of remdesivir. - Covid 19 Pneumonia. ID following - COPD, neb tx - HTN; cont home med - DM; SSI - Morbid Obesity; lifestyle modification - Depression. zoloft - Debility. PT to mobilize DVT/PPX - lovenox weight-based plan. cont remdesivir/wean oxygen Currently in IMCU, if can wean oxygen down to 10 L, will transfer to telemetry CODE STATUS Full code Noted patient has no official past medical power of preventive medicine officer but and next of kin is her sister Madelyn Ferguson which she told me can make decisions for her if he ever becomes incapacitated. 01/01/2021 - acute respiratory failure secondary to covid. 15 L high flow oxygen, wean as tolerated, cont steriod/remdesivir. - Covid 19 Pneumonia. ID following - COPD, neb tx - HTN; cont home med - DM; SSI - Morbid Obesity; lifestyle modification - Depression. zoloft - Debility. PT to mobilize DVT/PPX - lovenox weight-based plan. cont remdesivir/wean oxygen Currently in IM, if can wean oxygen down to 10 L, will transfer to telemetry [place] [facility] today CODE STATUS Full code 01/02/2021 - acute respiratory failure secondary to covid. 12 L high flow oxygen, wean as tolerated, cont steriod S/p remdesivir - Covid 19 Pneumonia. ID following - COPD, neb tx - HTN; cont home med - DM; SSI - Morbid Obesity; lifestyle modification - Depression. zoloft - Debility. PT to mobilize DVT/PPX - lovenox weight-based Continue to wean oxygen Currently in IMCU, can transfer to telemetry today 01/03/2021 - acute respiratory failure secondary to covid. 10 L high flow oxygen, wean as tolerated, cont steriod S/p remdesivir - Covid 19 Pneumonia. ID following -Worsening thrombocytopenia, platelet 7 today, discontinue Lovenox , get HIT panel and consult hematology - COPD, neb tx - HTN; cont home med - DM; SSI - Morbid Obesity; lifestyle modification - Depression. zoloft - Debility. PT DVT/PPX -DC Lovenox because of thrombocytopenia, do SCD Continue to wean oxygen Currently in IMCU, can transfer to telemetry today, will also consult physical therapy for home health and once we can get her oxygen requirements down to 5 L plan discharge CODE STATUS Full code 01/04/2021 - acute respiratory failure secondary to covid. 7 L high flow oxygen, wean as tolerated, cont steriod S/p remdesivir - Covid 19 Pneumonia. ID following -Worsening thrombocytopenia, platelet 137 today, discontinue Lovenoxd yesterday, his platelet was 37 yesterday, but now back to normal., Follow HIT panel, follow hematology recommendation - COPD, neb tx - HTN; cont home med - DM; SSI - Morbid Obesity; lifestyle modification - Depression. zoloft - Debility. PT DVT/PPX -DCd Lovenox because of thrombocytopenia, do SCD Continue to wean oxygen Patient has no insurance so cannot do home health,, and once we can get her oxygen requirements down to 5 L plan discharge CODE STATUS Full code Noted patient has no official past medical power of preventive medicine officer but and next of kin is her sister Madelyn Ferguson which she told me can make decisions for her if he ever becomes incapacitated. at 1147 RPT #: [id number] END OF REPORT [id number] 10:50:00 [facility] ([facility]) Infectious Dis. Progress Note REPORT#:[id number] REPORT STATUS: Signed DATE:01/04/21 TIME:1050 PATIENT: LORI DELUCA UNIT #: [id number] ROOM/BED: [place] [id number] : [birth year] AGE: 55 SEX: F ATTEND: Alfred Escobedo MD ADM AUTHOR: Andrew Aguilar MD * ALL edits or amendments must be made on the electronic/computer document * Subjective Chief Complaint: Pneumonia HPI: O2 requirements have decreased. Review of Systems Constitutional: Denies: fever. Objective Physical Exam Head/Eyes: atraumatic, EOMI, normocephalic Cardiovascular: regular rate rhythm Respiratory: on oxygen Abdomen: non-tender, soft Extremities: moves all, normal capillary refill, no clubbing, no cyanosis Neuro/KETTLE SKIMMER: alert, oriented X 3 Skin: normal color, normal turgor, no rash Diagnosis, Assessment Plan Free Text A P: Laboratory Tests 01/04/21 1000: [Embedded Image Not Available] 01/03/21 0445: [Embedded Image Not Available] Assessment: 1. Pneumonia with covid-19 s/p CV plasma and remdesivir. 2. Acute respiratory failure with hypoxia. 3. Morbid obesity. Plan: 1. Steroids. 2. Monitor inflammatory markers. CRP has decreased. 3. Pt completed treatment with ceftriaxone. 4. Wean O2 as tolerated. at 1052 RPT #: [id number] END OF REPORT [id number] 09:45:[id number] [facility] [address] [place] [address] PATIENT NAME: LORI DELUCA ADMIT DATE: 12/27/20 ACCOUNT NO: [id number] ROOM NO: [id number] AGE: 55 REPORT TYPE: CONSULTATION SEX: F ADMITTING PHYSICIAN: Alfred Escobedo MD ATTENDING PHYSICIAN: Alfred Escobedo MD CONSULTATION DATE: CONSULTING PHYSICIAN: Yanet Lim MD REASON FOR CONSULTATION: Thrombocytopenia. HISTORY OF PRESENT ILLNESS: Ms. Deluca is a 55-year-old female who was transferred from [facility] after she was diagnosed with COVID-19 pneumonia and hypoxic respiratory failure. She also has a history of sleep apnea and morbid obesity. She was initially at ICU on CPAP and now transferred to the floor. The patient was noted to have normal platelet count on admission and has been noted to have gradual decrease in the platelet count since admission. This is associated with normal WBC and hemoglobin. She reports feeling significantly better and is currently on high-flow oxygen. PAST MEDICAL HISTORY: COPD, morbid obesity, sleep apnea, diabetes. PAST SURGICAL HISTORY: None. ALLERGIES: MORPHINE, CODEINE, ACETAMINOPHEN, TRAMADOL, BENADRYL. SOCIAL HISTORY: Denies any history of smoking, alcohol, or drug abuse. REVIEW OF SYSTEMS: As per the HPI, otherwise unremarkable. PHYSICAL EXAMINATION: GENERAL: Obese female, on oxygen. HEENT: Atraumatic and normocephalic. Pupils equal and reactive to light. Sclerae anicteric. Conjunctivae clear. Oropharynx moist. NECK: Supple. No JVD. RESPIRATORY: CTA bilaterally. No crackles, rhonchi, or wheezing. CARDIOVASCULAR: RRR. S1 and S2 normal. ABDOMEN: Soft. Bowel sounds present. EXTREMITIES: No CCE. NEUROLOGIC: Alert and oriented x3, grossly nonfocal. LABORATORY DATA: WBC 11.2, hemoglobin 14.9, platelets 37. IMPRESSION: 1. Thrombocytopenia, multifactorial in etiology secondary to consumption from acute illness, other differential includes disseminated intravascular coagulation, coagulopathy, medications, heparin-induced thrombocytopenia though PATIENT NAME: LORI DELUCA suspicion is low. 2. COVID pneumonia. Management per primary team. 3. Acute hypoxic respiratory failure. 4. Sleep apnea. 5. Morbid obesity. RECOMMENDATIONS: 1. Check following lab for further evaluation: Peripheral smear, LDH, haptoglobin, retic count, B12, folate, TSH, XU, PT, PTT, fibrinogen. 2. Hold anticoagulation. 3. Mechanical anticoagulation. 4 Follow up on the HIT antibody panel. 5. Monitor CBC and transfuse to keep hemoglobin more than 7 and platelets more than 20 or higher if bleeding present. 6. Supportive care. Thank you for allowing me to participate in Ms. Aponte's care. We will continue to follow. Dictated By: Yanet Lim MD WT: CON:L.SELINA/DEBRA/NTS Conf#: [id number]#: [id number] Authenticated by Yanet Lim MD On 02/11/2021 10:42:15 AM at 1042 PATIENT NAME: LORI DELUCA 13:19:00 [facility] Pulmonology Progress Note REPORT#:[id number] REPORT STATUS: Signed DATE:01/03/21 TIME:1319 PATIENT: LORI DELUCA UNIT #: [id number] ROOM/BED: [place] [id number] : [birth year] AGE: 55 SEX: F ATTEND: Alfred Escobedo MD ADM AUTHOR: Sonal Voss * ALL edits or amendments must be made on the electronic/computer document * Subjective Chief Complaint: 12L/min HF NC, no distress BIPAP Review of Systems ROS Constitutional: generalized weakness. Respiratory: Reports: TOURE (dyspnea on exertion). Denies: pleuritic pain. Cardiovascular: Reports: TOURE (dyspnea on exertion). Denies: chest pain. GI: Denies: abdominal pain. : Denies: frequency, pelvic pain. Musculoskeletal: Denies: joint pain, myalgias. Heme: Denies: bleeding, petechiae. Endocrine: Denies: heat intolerance, polyphagia. Neuro: Denies: confusion, headache. Objective General VS/I O: Last Documented: Result Date Time Temp 36.5 01/03 [...] Output, Urine 900 PATIENT WEIGHT: Weight (lb): 400 Weight (oz): 2.22 Weight (kg): 181.437 Medications: Active Meds + DC'd Last 24 Hrs Dexamethasone 10 MG BID PO Benzonatate 100 MG TID PO Famotidine 20 MG BID PO Ceftriaxone Sodium 1,000 MG Q24H IV Sterile Water 10 ML Lisinopril 20 MG DAILY PO Sertraline HCl 50 MG DAILY PO Dextrose/Water 50 ML ONCE PRN IV (CKD) Insulin Human Lispro S/SCALE AC HS SUBQ Enoxaparin Sodium 180 MG Q12HR SUBQ (DC) Nutrition assessment: The data set between the solid lines has been imported from the dietitian's assessment. Any exceptions have been noted under Provider comments. BMI Calculated: 75.6 Nutrition related diagnosis: Nutrition diagnosis details: Nutrition problem: Nutrition etiology: Nutrition signs and symptoms: Nutrition prescription: Dietitian name: Assessment completed: Provider comments on imported dietitian assessment: Physical Exam General appearance: obese, alert, awake, oriented Head/eyes: atraumatic, normocephalic ENT: ENT: normal nose, normal sinus Cardiovascular: normal heart sounds, normal S1/S2, regular rate rhythm, no rub , no gallop Respiratory/chest: aerating well, clear to auscultation, symmetric expansion Abdomen: soft, normal bowel sounds Extremities: edema, no cyanosis, no edema Musculoskeletal: full range of motion Neuro/KETTLE SKIMMER: alert, oriented X 3, CNII-XII intact Psychiatry: normal affect, normal judgment/insight Results Findings/Data: Laboratory Tests 01/03/21 0445: [Embedded Image Not Available] Laboratory Tests 01/03 01/03 01/03 01/02 1203 0745 0445 1999 Chemistry Sodium (134 - 147 mmol/L) 134 [...] (Auto) (20.5 - 51.1 %) 8.4 L [place] % (Auto) (1.7 - 9.3 %) 4.5 Eos % (Auto) (0.0 - 6.0 %) 0.0 Baso % (Auto) (0.0 - 2.0 %) 0.3 Neut # (Auto) (1.8 - 7.6 K/mm3) 9.2 H Lymph # (Auto) (0.6 - 3.2 K/mm3) 0.9 [place] # (Auto) (0.3 - 1.1 K/mm3) 0.5 Eos # (Auto) (0.0 - 0.4 K/mm3) 0.0 Baso # (Auto) (0.0 - 0.1 K/mm3) 0.0 Abs Immat Gran (auto) (0.00 - 0.03 x10 3/uL) 0.54 H Add Manual Diff (CRITERIA DIFF/SCN) NO Immature Gran % (0.0 - 5.0 %) 4.8 Nucleated RBC % (0.0 - 1.0 /100WBC%) 0.2 Diagnosis, Assessment Plan Hospital course to date: Impressions Acute hypoxic respiratory failure Pneumonia due to covid-19 infection Sleep apnea Morbid obesity Plan on 12 L HF NC, titrate and maintain oxygenation >92% NIPPV PRN/HS s/p convalescent plasma, remdesivir, Antibiotics, ID following Dexamethasone Gi prophylaxis DVT, on lovenox on diamox full code at 1326 RPT #: [id number] END OF REPORT [id number] 13:19:00 [facility] ([facility]) Pulmonology Progress Note REPORT#:[id number] REPORT STATUS: Signed DATE:01/03/21 TIME:131 PATIENT: LORI DELUCA UNIT #: [id number] ROOM/BED: [place] [id number] : [birth year] AGE: 55 SEX: F ATTEND: Alfred Escobedo MD ADM AUTHOR: Sonal Voss * ALL edits or amendments must be made on the electronic/computer document * Sonal Voss 01/03/21 1319: Subjective Chief Complaint: 12L/min HF NC, no distress BIPAP Review of Systems ROS Constitutional: generalized weakness. Respiratory: Reports: TOURE (dyspnea on exertion). Denies: pleuritic pain. Cardiovascular: Reports: TOURE (dyspnea on exertion). Denies: chest pain. GI: Denies: abdominal pain. : Denies: frequency, pelvic pain. Musculoskeletal: Denies: joint pain, myalgias. Heme: Denies: bleeding, petechiae. Endocrine: Denies: heat intolerance, polyphagia. Neuro: Denies: confusion, headache. Objective General VS/I O: Last Documented: Result Date Time Temp 36.5 01/03 [...] Output, Urine 900 PATIENT WEIGHT: Weight (lb): 400 Weight (oz): 2.22 Weight (kg): 181.437 Medications: Active Meds + DC'd Last 24 Hrs Dexamethasone 10 MG BID PO Benzonatate 100 MG TID PO Famotidine 20 MG BID PO Ceftriaxone Sodium 1,000 MG Q24H IV Sterile Water 10 ML Lisinopril 20 MG DAILY PO Sertraline HCl 50 MG DAILY PO Dextrose/Water 50 ML ONCE PRN IV (CKD) Insulin Human Lispro S/SCALE AC HS SUBQ Enoxaparin Sodium 180 MG Q12HR SUBQ (DC) Nutrition assessment: The data set between the solid lines has been imported from the dietitian's assessment. Any exceptions have been noted under Provider comments. BMI Calculated: 75.6 Nutrition related diagnosis: Nutrition diagnosis details: Nutrition problem: Nutrition etiology: Nutrition signs and symptoms: Nutrition prescription: Dietitian name: Assessment completed: Provider comments on imported dietitian assessment: Physical Exam General appearance: obese, alert, awake, oriented Head/eyes: atraumatic, normocephalic ENT: ENT: normal nose, normal sinus Cardiovascular: normal heart sounds, normal S1/S2, regular rate rhythm, no rub , no gallop Respiratory/chest: aerating well, clear to auscultation, symmetric expansion Abdomen: soft, normal bowel sounds Extremities: edema, no cyanosis, no edema Musculoskeletal: full range of motion Neuro/KETTLE SKIMMER: alert, oriented X 3, CNII-XII intact Psychiatry: normal affect, normal judgment/insight Results Findings/Data: Laboratory Tests 01/03/21 0445: [Embedded Image Not Available] Laboratory Tests 01/03 01/03 01/03 01/02 1203 0745 0445 2000 Chemistry Sodium (134 - 147 mmol/L) 134 [...] (Auto) (20.5 - 51.1 %) 8.4 L [place] % (Auto) (1.7 - 9.3 %) 4.5 Eos % (Auto) (0.0 - 6.0 %) 0.0 Baso % (Auto) (0.0 - 2.0 %) 0.3 Neut # (Auto) (1.8 - 7.6 K/mm3) 9.2 H Lymph # (Auto) (0.6 - 3.2 K/mm3) 0.9 [place] # (Auto) (0.3 - 1.1 K/mm3) 0.5 Eos # (Auto) (0.0 - 0.4 K/mm3) 0.0 Baso # (Auto) (0.0 - 0.1 K/mm3) 0.0 Abs Immat Gran (auto) (0.00 - 0.03 x10 3/uL) 0.54 H Add Manual Diff (CRITERIA DIFF/SCN) NO Immature Gran % (0.0 - 5.0 %) 4.8 Nucleated RBC % (0.0 - 1.0 /100WBC%) 0.2 Diagnosis, Assessment Plan Hospital course to date: Impressions Acute hypoxic respiratory failure Pneumonia due to covid-19 infection Sleep apnea Morbid obesity Plan on 12 L HF NC, titrate and maintain oxygenation >92% NIPPV PRN/HS s/p convalescent plasma, remdesivir, Antibiotics, ID following Dexamethasone Gi prophylaxis DVT, on lovenox on diamox full code Maicol Louise 01/03/21 1638: Diagnosis, Assessment Plan Hospital course to date: I reviewed the chart, I examined the patient, I discussed the case with the housestaff, I agree with above Start Diamox 250 IV every 12 hours for 4 doses to dampen bicarb Thrombocytopenia off Lovenox On dexamethasone Titrate FiO2 down as tolerated currently 7 L at 1326 at 1638 RPT #: [id number] END OF REPORT [id number] 12:16:00 [facility] ([facility]) Hospitalist Progress Note REPORT#:[id number] REPORT STATUS: Signed DATE:01/03/21 TIME:1216 PATIENT: LORI DELUCA UNIT #: [id number] ROOM/BED: [place] [id number] : [birth year] AGE: 55 SEX: F ATTEND: Alfred Escobedo MD ADM AUTHOR: Yandy Johnson MD * ALL edits or amendments must be made on the electronic/computer document * Subjective Chief Complaint: stable. On high flow oxygen currently 10 L Denies any complaints today Review of Systems Respiratory: Denies: SOB. Cardiovascular: Denies: chest pain. GI: Denies: nausea, vomiting. Neuro: Denies: headache. Objective General VS/I O: Vital Signs: Date Time Temp Pulse Resp B/P [...] 29 91 01/03 0715 57 26 99 01/03 0700 58 22 142/69 96 100 01/03 0500 51 92 01/03 0445 57 95 01/03 0430 77 01/03 0423 36.5 01/03 0415 93 01/03 0400 55 23 125/73 93 01/03 0300 94 01/03 0245 56 94 01/03 0230 59 18 94 01/03 0215 54 94 01/03 0200 55 136/80 94 06/19 0145 55 23 95 01/03 0130 53 94 01/03 0124 57 24 146/80 96 01/03 0115 54 26 96 01/03 0100 65 25 97 01/03 0038 50 96 01/03 0036 36.6 01/03 0030 22 01/03 0015 64 95 01/03 0000 55 01/02 2311 High flow 12 68 nasal cannula 01/02 2100 118/72 87 01/02 2022 55 27 95 01/02 2015 58 26 98 01/02 2006 36.6 01/03 2000 121/80 93 01/03 2000 57 24 100 01/02 1945 61 23 100 01/02 1930 56 26 100 01/02 1926 100 High flow 12 68 nasal cannula 01/02 1915 60 01/02 1900 126/86 99 01/02 1900 61 100 01/02 1845 59 01/02 1830 63 36 97 01/02 1800 62 21 96 01/02 1730 65 36 97 01/02 1712 67 25 136/60 86 97 01/02 1617 36.5 01/02 1615 58 40 99 [...] Output, Urine 900 PATIENT WEIGHT: Weight (lb): 400 Weight (oz): 2.22 Weight (kg): 181.437 Physical Exam General appearance: alert, awake Cardiovascular: regular rate rhythm, no murmur, no rub, no thrill Respiratory: decreased breath sounds, hypoxia Abdomen: non-tender, normal bowel sounds, soft, no distention, no guarding Extremities: moves all, no edema Neuro/KETTLE SKIMMER: alert, oriented X 3, normal speech, no motor deficits, no sensory deficits Psychiatry: normal affect Diagnosis, Assessment Plan Free Text DxA P Notes Free text DxA P notes: Acute hypoxic respiratory failure with COVID-19 pneumonia We will admit the patient Start the patient on steroids We will hold off on antibiotics as patient is afebrile white count is normal we will try to get CT scan of the chest to see if there are some infiltrates or not. We will get CT of the chest to assess the infiltrates As D-dimer is elevated and troponins are elevated will continue with therapeutic anticoagulation Symptomatic management We will ask infectious disease and pulmonary to evaluate Started the patient on remdesivir Continue supplemental oxygen to keep O2 sat above 90% and monitor respiratory status closely Proning NSTEMI Possibly type II in the setting of COVID-19 pneumonia with hypoxia. We will continue to trend troponins. Keep the patient on aspirin statin. We will get an echocardiogram. Monitor on telemetry. Hypertension Resume lisinopril monitor blood pressure keep on as needed hydralazine Prediabetes Now that the patient will be on steroids we will keep on insulin sliding scale monitor blood sugars keep on diabetic diet COPD Does not appear to be in COPD exacerbation will be on steroids supplemental oxygen. Monitor respiratory status closely. Pulmonary on board. DVT GI prophylaxis Patient is full code Patient was explained the plan in detail all medication effect side effects were discussed all was well associated with the plan Next of kin sister Madelyn ferguson [phone] 12/28/2020 Covid 19 Pneumonia COPD HTN DM Morbid Obesity Plan ----- -Continue on remdesevir -Continue COVID treatment protocol ( steroids, vit c/d/zinc) -Prone positioning as tolerated -Monitor inflammatory markers -Hiflow oxygen prn -Pulm and ID following -Accuchecks with ISS -Diabetic diet -Ensure tight glucose control -Resume home meds for BP control -Dispo-pendng completion of therapy and clinical improvement 12/30/2020 - acute respiratory failure secondary to covid. 15 L high flow oxygen, wean as tolerated, cont steriod/remdesivir. PUl following - Covid 19 Pneumonia. ID following - COPD, neb tx - HTN; cont home med - DM; SSI - Morbid Obesity; lifestyle modification - Depression. zoloft - Debility. PT to mobilize DVT/PPX - lovenox plan. cont remdesivir/wean oxygen Was moved to ICU yesterday as was repeatedly taken off oxygen, currently more stable and on my evaluation is keeping on her oxygen If stable can downgrade to IMCU 12/31/2020 - acute respiratory failure secondary to covid. 15 L high flow oxygen, wean as tolerated, cont steriod/remdesivir. There is day 3 of remdesivir. - Covid 19 Pneumonia. ID following - COPD, neb tx - HTN; cont home med - DM; SSI - Morbid Obesity; lifestyle modification - Depression. zoloft - Debility. PT to mobilize DVT/PPX - lovenox weight-based plan. cont remdesivir/wean oxygen Currently in IMCU, if can wean oxygen down to 10 L, will transfer to telemetry CODE STATUS Full code Noted patient has no official past medical power of preventive medicine officer but and next of kin is her sister Madelyn Ferguson which she told me can make decisions for her if he ever becomes incapacitated. 01/01/2021 - acute respiratory failure secondary to covid. 15 L high flow oxygen, wean as tolerated, cont steriod/remdesivir. - Covid 19 Pneumonia. ID following - COPD, neb tx - HTN; cont home med - DM; SSI - Morbid Obesity; lifestyle modification - Depression. zoloft - Debility. PT to mobilize DVT/PPX - lovenox weight-based plan. cont remdesivir/wean oxygen Currently in IMCU, if can wean oxygen down to 10 L, will transfer to telemetry [facility] today CODE STATUS Full code 01/02/2021 - acute respiratory failure secondary to covid. 12 L high flow oxygen, wean as tolerated, cont steriod S/p remdesivir - Covid 19 Pneumonia. ID following - COPD, neb tx - HTN; cont home med - DM; SSI - Morbid Obesity; lifestyle modification - Depression. zoloft - Debility. PT to mobilize DVT/PPX - lovenox weight-based Continue to wean oxygen Currently in IMCU, can transfer to telemetry today 01/03/2021 - acute respiratory failure secondary to covid. 10 L high flow oxygen, wean as tolerated, cont steriod S/p remdesivir - Covid 19 Pneumonia. ID following -Worsening thrombocytopenia, platelet 7 today, discontinue Lovenox , get HIT panel and consult hematology - COPD, neb tx - HTN; cont home med - DM; SSI - Morbid Obesity; lifestyle modification - Depression. zoloft - Debility. PT DVT/PPX -DC Lovenox because of thrombocytopenia, do SCD Continue to wean oxygen Currently in IMCU, can transfer to telemetry today, will also consult physical therapy for home health and once we can get her oxygen requirements down to 5 L plan discharge CODE STATUS Full code Noted patient has no official past medical power of preventive medicine officer but and next of kin is her sister Madelyn Ferguson which she told me can make decisions for her if he ever becomes incapacitated. at 1223 RPT #: [id number] END OF REPORT [id number] 14:15:00 [facility]) Pulmonology Progress Note REPORT#:[id number] REPORT STATUS: Signed DATE:01/02/21 TIME:1415 PATIENT: LORI DELUCA UNIT #: [id number] ROOM/BED: [place] [id number] : [birth year] AGE: 55 SEX: F ATTEND: Alfred Escobedo MD ADM AUTHOR: Sergio Love * ALL edits or amendments must be made on the electronic/computer document * Subjective Chief Complaint: 12L/min NC, no distress States she wore her BiPAP x5 hours last night Review of Systems ROS Constitutional: generalized weakness. Respiratory: Denies: pleuritic pain. Cardiovascular: Denies: chest pain. GI: Denies: abdominal pain. Objective General VS/I O: Last Documented: Result Date Time Temp 36.5 01/02 [...] Urine 650 250 PATIENT WEIGHT: Weight (lb): 400 Weight (oz): 2.22 Weight (kg): 181.437 Medications: Active Meds + DC'd Last 24 Hrs Acetazolamide 250 MG Q12HR IV (DC) Sterile Water 2.5 ML Dexamethasone 10 MG BID PO Benzonatate 100 MG TID PO Famotidine 20 MG BID PO Ceftriaxone Sodium 1,000 MG Q24H IV Sterile Water 10 ML Lisinopril 20 MG DAILY PO Sertraline HCl 50 MG DAILY PO Dextrose/Water 50 ML ONCE PRN IV (CKD) Insulin Human Lispro S/SCALE AC HS SUBQ Enoxaparin Sodium 180 MG Q12HR SUBQ Nutrition assessment: The data set between the solid lines has been imported from the dietitian's assessment. Any exceptions have been noted under Provider comments. BMI Calculated: 75.6 Nutrition related diagnosis: Nutrition diagnosis details: Nutrition problem: Nutrition etiology: Nutrition signs and symptoms: Nutrition prescription: Dietitian name: Assessment completed: Provider comments on imported dietitian assessment: Physical Exam Head/eyes: atraumatic, normocephalic ENT: ENT: normal nose, normal sinus Cardiovascular: normal heart sounds, normal S1/S2, regular rate rhythm, no rub , no gallop Abdomen: soft, normal bowel sounds Extremities: edema, no cyanosis, no edema Neuro/KETTLE SKIMMER: alert, oriented X 3, CNII-XII intact Results Findings/Data: Laboratory Tests 01/02/21 0520: [Embedded Image Not Available] Laboratory Tests 01/01 1606 Blood Gas Puncture Site [...] 01/02 01/01 01/01 1143 0733 0520 2134 1747 Chemistry Sodium (134 - 147 mmol/L) 138 Potassium (3.4 - 5.0 mmol/L) 4.5 Chloride (100 - 108 mmol/L) 101 Carbon Dioxide (21 - 32 mmol/L) 34 H Anion Gap (4.0 - 15.0 GAP calc) 3.0 L BUN (7 - 18 MG/DL) 20 H Creatinine (0.6 - 1.0 MG/DL) 0.5 L Glomerular Filtr Rate (>60 >=60 max estimate estGFR) Glucose (70 - 110 MG/DL) 176 H [...] (Auto) (20.5 - 51.1 %) 8.9 L [place] % (Auto) (1.7 - 9.3 %) 4.9 Eos % (Auto) (0.0 - 6.0 %) 0.0 Baso % (Auto) (0.0 - 2.0 %) 0.3 Neut # (Auto) (1.8 - 7.6 K/mm3) 7.5 Lymph # (Auto) (0.6 - 3.2 K/mm3) 0.8 [place] # (Auto) (0.3 - 1.1 K/mm3) 0.5 [...] DECREASED Plt Morphology Comment AGGREGATES Diagnosis, Assessment Plan Hospital course to date: 1. Acute hypoxic respiratory failure 2. Acute viral pneumonia due to COVID-19 infection 3. Sleep apnea Plan Comfortable on 12L/min NC, NRB; titrate oxygen to maintan SpO2 > 92% Needs to wear her NIPPV QHS and for naps during the day CTA without pulmonary embolism, does show bilateral patchy infiltrates consistent with COVID-19 S/p convalescent plasma, remdesivir S/p diamox x2, follow up labs in AM Continue Dexamethasone BID Continue ceftraixone Infectious disease on board Enhanced anticoagulation GI prophylaxis IMCU at 1707 RPT #: [id number] END OF REPORT [id number] 14:15:00 [facility] ([facility]) Pulmonology Progress Note REPORT#:[id number] REPORT STATUS: Signed DATE:01/02/21 TIME:1414 PATIENT: LORI DELUCA UNIT #: [id number] ROOM/BED: [place] [id number] : [birth year] AGE: 55 SEX: F ATTEND: Alfred Escobedo MD ADM AUTHOR: Sergio Love * ALL edits or amendments must be made on the electronic/computer document * Sergio Love 01/02/21 1415: Subjective Chief Complaint: 12L/min NC, no distress States she wore her BiPAP x5 hours last night Review of Systems ROS Constitutional: generalized weakness. Respiratory: Denies: pleuritic pain. Cardiovascular: Denies: chest pain. GI: Denies: abdominal pain. Objective General VS/I O: Last Documented: Result Date Time Temp 36.5 01/02 [...] Urine 650 250 PATIENT WEIGHT: Weight (lb): 400 Weight (oz): 2.22 Weight (kg): 181.437 Medications: Active Meds + DC'd Last 24 Hrs Acetazolamide 250 MG Q12HR IV (DC) Sterile Water 2.5 ML Dexamethasone 10 MG BID PO Benzonatate 100 MG TID PO Famotidine 20 MG BID PO Ceftriaxone Sodium 1,000 MG Q24H IV Sterile Water 10 ML Lisinopril 20 MG DAILY PO Sertraline HCl 50 MG DAILY PO Dextrose/Water 50 ML ONCE PRN IV (CKD) Insulin Human Lispro S/SCALE AC HS SUBQ Enoxaparin Sodium 180 MG Q12HR SUBQ Nutrition assessment: The data set between the solid lines has been imported from the dietitian's assessment. Any exceptions have been noted under Provider comments. BMI Calculated: 75.6 Nutrition related diagnosis: Nutrition diagnosis details: Nutrition problem: Nutrition etiology: Nutrition signs and symptoms: Nutrition prescription: Dietitian name: Assessment completed: Provider comments on imported dietitian assessment: Physical Exam Head/eyes: atraumatic, normocephalic ENT: ENT: normal nose, normal sinus Cardiovascular: normal heart sounds, normal S1/S2, regular rate rhythm, no rub , no gallop Abdomen: soft, normal bowel sounds Extremities: edema, no cyanosis, no edema Neuro/KETTLE SKIMMER: alert, oriented X 3, CNII-XII intact Results Findings/Data: Laboratory Tests 01/02/21 0520: [Embedded Image Not Available] Laboratory Tests 01/01 1606 Blood Gas Puncture Site [...] 01/02 01/01 01/01 1143 0733 0520 2134 1747 Chemistry Sodium (134 - 147 mmol/L) 138 Potassium (3.4 - 5.0 mmol/L) 4.5 Chloride (100 - 108 mmol/L) 101 Carbon Dioxide (21 - 32 mmol/L) 34 H Anion Gap (4.0 - 15.0 GAP calc) 3.0 L BUN (7 - 18 MG/DL) 20 H Creatinine (0.6 - 1.0 MG/DL) 0.5 L Glomerular Filtr Rate (>60 >=60 max estimate estGFR) Glucose (70 - 110 MG/DL) 176 H [...] (Auto) (20.5 - 51.1 %) 8.9 L [place] % (Auto) (1.7 - 9.3 %) 4.9 Eos % (Auto) (0.0 - 6.0 %) 0.0 Baso % (Auto) (0.0 - 2.0 %) 0.3 Neut # (Auto) (1.8 - 7.6 K/mm3) 7.5 Lymph # (Auto) (0.6 - 3.2 K/mm3) 0.8 [place] # (Auto) (0.3 - 1.1 K/mm3) 0.5 [...] DECREASED Plt Morphology Comment AGGREGATES Diagnosis, Assessment Plan Hospital course to date: 1. Acute hypoxic respiratory failure 2. Acute viral pneumonia due to COVID-19 infection 3. Sleep apnea Plan Comfortable on 12L/min NC, NRB; titrate oxygen to maintan SpO2 > 92% Needs to wear her NIPPV QHS and for naps during the day CTA without pulmonary embolism, does show bilateral patchy infiltrates consistent with COVID-19 S/p convalescent plasma, remdesivir S/p diamox x2, follow up labs in AM Continue Dexamethasone BID Continue ceftraixone Infectious disease on board Enhanced anticoagulation GI prophylaxis IMCU Daniel Tariq 01/02/21 1831: Diagnosis, Assessment Plan Hospital course to date: transaudative effusion Taper Oxygen to maintain sat 90-92% Positive pressure Vent QHS and PRN Patient is noncompliance to BIPAP On Diamox at 1707 at 1832 RPT #: [id number] END OF REPORT [id number] 14:12:00 [facility]) Hospitalist Progress Note REPORT#:[id number] REPORT STATUS: Signed DATE:01/02/21 TIME:1412 PATIENT: LORI DELUCA UNIT #: [id number] ROOM/BED: [place] [id number] : 69 AGE: 55 SEX: F ATTEND: Alfred Escobedo MD ADM AUTHOR: Yandy Johnson MD * ALL edits or amendments must be made on the electronic/computer document * Subjective Chief Complaint: stable. On high flow oxygen currently 12 L Denies any complaints today Review of Systems Respiratory: Denies: SOB. Cardiovascular: Denies: chest pain. GI: Denies: nausea, vomiting. Neuro: Denies: headache. Objective General VS/I O: Vital Signs: Date Time Temp Pulse Resp B/P [...] 0014 54 96 90 01/02 0012 36.4 01/02 0000 52 22 130/77 99 92 01/02 [...] 01/01 2100 61 27 144/71 102 94 01/014 36.4 01/01 2030 59 27 136/83 104 [...] Urine 650 250 PATIENT WEIGHT: Weight (lb): 400 Weight (oz): 2.22 Weight (kg): 181.437 Physical Exam General appearance: alert, awake Neck: non-tender, no JVD Cardiovascular: regular rate rhythm, no murmur, no rub, no thrill Respiratory: decreased breath sounds, hypoxia Abdomen: non-tender, normal bowel sounds, soft, no distention, no guarding Extremities: moves all, no edema Neuro/KETTLE SKIMMER: alert, oriented X 3, normal speech, no motor deficits, no sensory deficits Psychiatry: normal affect Diagnosis, Assessment Plan Free Text DxA P Notes Free text DxA P notes: Acute hypoxic respiratory failure with COVID-19 pneumonia We will admit the patient Start the patient on steroids We will hold off on antibiotics as patient is afebrile white count is normal we will try to get CT scan of the chest to see if there are some infiltrates or not. We will get CT of the chest to assess the infiltrates As D-dimer is elevated and troponins are elevated will continue with therapeutic anticoagulation Symptomatic management We will ask infectious disease and pulmonary to evaluate Started the patient on remdesivir Continue supplemental oxygen to keep O2 sat above 90% and monitor respiratory status closely Proning NSTEMI Possibly type II in the setting of COVID-19 pneumonia with hypoxia. We will continue to trend troponins. Keep the patient on aspirin statin. We will get an echocardiogram. Monitor on telemetry. Hypertension Resume lisinopril monitor blood pressure keep on as needed hydralazine Prediabetes Now that the patient will be on steroids we will keep on insulin sliding scale monitor blood sugars keep on diabetic diet COPD Does not appear to be in COPD exacerbation will be on steroids supplemental oxygen. Monitor respiratory status closely. Pulmonary on board. DVT GI prophylaxis Patient is full code Patient was explained the plan in detail all medication effect side effects were discussed all was well associated with the plan Next of kin sister Madelyn ferguson [phone] 12/28/2020 Covid 19 Pneumonia COPD HTN DM Morbid Obesity Plan ----- -Continue on remdesevir -Continue COVID treatment protocol ( steroids, vit c/d/zinc) -Prone positioning as tolerated -Monitor inflammatory markers -Hiflow oxygen prn -Pulm and ID following -Accuchecks with ISS -Diabetic diet -Ensure tight glucose control -Resume home meds for BP control -Dispo-pendng completion of therapy and clinical improvement 12/30/2020 - acute respiratory failure secondary to covid. 15 L high flow oxygen, wean as tolerated, cont steriod/remdesivir. PUl following - Covid 19 Pneumonia. ID following - COPD, neb tx - HTN; cont home med - DM; SSI - Morbid Obesity; lifestyle modification - Depression. zoloft - Debility. PT to mobilize DVT/PPX - lovenox plan. cont remdesivir/wean oxygen Was moved to ICU yesterday as was repeatedly taken off oxygen, currently more stable and on my evaluation is keeping on her oxygen If stable can downgrade to IMCU 12/31/2020 - acute respiratory failure secondary to covid. 15 L high flow oxygen, wean as tolerated, cont steriod/remdesivir. There is day 3 of remdesivir. - Covid 19 Pneumonia. ID following - COPD, neb tx - HTN; cont home med - DM; SSI - Morbid Obesity; lifestyle modification - Depression. zoloft - Debility. PT to mobilize DVT/PPX - lovenox weight-based plan. cont remdesivir/wean oxygen Currently in IMCU, if can wean oxygen down to 10 L, will transfer to telemetry CODE STATUS Full code Noted patient has no official past medical power of preventive medicine officer but and next of kin is her sister Madelyn Ferguson which she told me can make decisions for her if he ever becomes incapacitated. 01/01/2021 - acute respiratory failure secondary to covid. 15 L high flow oxygen, wean as tolerated, cont steriod/remdesivir. - Covid 19 Pneumonia. ID following - COPD, neb tx - HTN; cont home med - DM; SSI - Morbid Obesity; lifestyle modification - Depression. zoloft - Debility. PT to mobilize DVT/PPX - lovenox weight-based plan. cont remdesivir/wean oxygen Currently in IMCU, if can wean oxygen down to 10 L, will transfer to telemetry [facility] CODE STATUS Full code 01/02/2021 - acute respiratory failure secondary to covid. 12 L high flow oxygen, wean as tolerated, cont steriod S/p remdesivir - Covid 19 Pneumonia. ID following - COPD, neb tx - HTN; cont home med - DM; SSI - Morbid Obesity; lifestyle modification - Depression. zoloft - Debility. PT to mobilize DVT/PPX - lovenox weight-based Continue to wean oxygen Currently in IMCU, can transfer to telemetry today CODE STATUS Full code Noted patient has no official past medical power of preventive medicine officer but and next of kin is her sister Madelyn Ferguson which she told me can make decisions for her if he ever becomes incapacitated. at 1414 RPT #: [id number] END OF REPORT [id number] 11:28:00 [facility] ([facility]) Infectious Dis. Progress Note REPORT#:[id number] REPORT STATUS: Signed DATE:01/02/21 TIME:1128 PATIENT: LORI DELUCA UNIT #: [id number] ROOM/BED: [place] [id number] : 69 AGE: 55 SEX: F ATTEND: Alfred Escobedo MD ADM AUTHOR: Andrew Aguilar MD * ALL edits or amendments must be made on the electronic/computer document * Subjective Chief Complaint: Pneumonia HPI: WBC remains normal. Pt has been on 12L O2. Review of Systems Constitutional: Denies: fever. Objective Physical Exam Head/Eyes: atraumatic, EOMI, normocephalic Cardiovascular: regular rate rhythm Respiratory: on oxygen Abdomen: non-tender, soft Musculoskeletal: no joint swelling Skin: normal color, normal turgor, no rash Psychiatry: normal affect, normal judgment/insight, normal mood Diagnosis, Assessment Plan Free Text A P: Laboratory Tests 01/02/21 0520: [Embedded Image Not Available] Assessment: 1. Pneumonia with covid-19 s/p CV plasma and remdesivir. 2. Acute respiratory failure with hypoxia. 3. Morbid obesity. Plan: 1. Steroids. 2. Monitor inflammatory markers. CRP has decreased. 3. Continue ceftriaxone (day 4) empirically for possible superimposed bacterial PNA. 4. Wean O2 as tolerated. at 1255 RPT #: [id number] END OF REPORT [id number] 12:15:00 [facility] ([facility]) Pulmonology Progress Note REPORT#:[id number] REPORT STATUS: Signed DATE:01/01/21 TIME:1215 PATIENT: LORI DELUCA UNIT #: [id number] ROOM/BED: [facility] : 69 AGE: 55 SEX: F ATTEND: Alfred Escobedo MD ADM AUTHOR: Sergio Love * ALL edits or amendments must be made on the electronic/computer document * Subjective Chief Complaint: On 15L/min NC, NRB SpO2 94% Reports no dyspnea Review of Systems ROS Constitutional: generalized weakness. Respiratory: Denies: pleuritic pain. Cardiovascular: Denies: chest pain. GI: Denies: abdominal pain. Objective General VS/I O: Last Documented: Result Date Time Temp 36.6 01/01 [...] Output, Urine 700 PATIENT WEIGHT: Weight (lb): 400 Weight (oz): 2.22 Weight (kg): 181.437 Medications: Active Meds + DC'd Last 24 Hrs Benzonatate 100 MG TID PO Dexamethasone 6 MG BID PO Famotidine 20 MG BID PO Ceftriaxone Sodium 1,000 MG Q24H IV Sterile Water 10 ML Lisinopril 20 MG DAILY PO Sertraline HCl 50 MG DAILY PO Remdesivir 100 MG Q24H IV (DC) Sodium Chloride 250 ML Dextrose/Water 50 ML ONCE PRN IV (CKD) Insulin Human Lispro S/SCALE AC HS SUBQ Enoxaparin Sodium 180 MG Q12HR SUBQ Guaifenesin/Dextromethorphan 10 ML Q4H PRN PRN PO (DC) Physical Exam Head/eyes: atraumatic, normocephalic ENT: ENT: normal nose, normal sinus Cardiovascular: normal heart sounds, normal S1/S2, regular rate rhythm, no rub , no gallop Abdomen: soft, normal bowel sounds Extremities: edema, no cyanosis, no edema Neuro/KETTLE SKIMMER: alert, oriented X 3, CNII-XII intact Results Findings/Data: Laboratory Tests 01/01/21 0930: [Embedded Image Not Available] 01/01/21 0530: [Embedded Image Not Available] Laboratory Tests 01/01 01/01 01/01 1126 0811 0530 [...] - 500 ng/mLFEU) 430 Laboratory Tests 01/01 09 Hematology WBC (3.5 - 11.0 K/mm3) 9.0 [...] (Auto) (20.5 - 51.1 %) 8.0 L [place] % (Auto) (1.7 - 9.3 %) 5.6 Eos % (Auto) (0.0 - 6.0 %) 0.1 Baso % (Auto) (0.0 - 2.0 %) 0.2 Neut # (Auto) (1.8 - 7.6 K/mm3) 7.5 Lymph # (Auto) (0.6 - 3.2 K/mm3) 0.7 [place] # (Auto) (0.3 - 1.1 K/mm3) 0.5 [...] THOUSAND) DECREASED Plt Morphology Comment CLUMPS Radiology data: Recent Impressions: RADIOLOGY - XR CHEST 1 V 01/01 0600 Report Impression - Status: SIGNED Entered: 01/01/2021 0906 IMPRESSION: Essentially unchanged bilateral scattered interstitial and groundglass airspace opacities. Impression By: DakotahANSMarley - Adam Matthew M.D. Diagnosis, Assessment Plan Hospital course to date: Assessment 1. Acute hypoxic respiratory failure 2. Acute viral pneumonia due to COVID-19 infection 3. Sleep apnea Plan Comfortable on 15L/min NC, NRB; titrate oxygen to maintan SpO2 > 92% Needs to wear her NIPPV QHS and for naps during the day CTA without pulmonary embolism, does show bilateral patchy infiltrates consistent with COVID-19 CXR reviewed with slightly improved right lung airspace opacities S/p convalescent plasma, remdesivir Continue Dexamethasone BID, increase dose Continue ceftraixone Infectious disease on board Enhanced anticoagulation GI prophylaxis IMCU at 1541 RPT #: [id number] END OF REPORT [id number] 12:15:00 [facility] ([facility] Pulmonology Progress Note REPORT#:[id number] REPORT STATUS: Signed DATE:01/01/21 TIME:1215 PATIENT: LORI DELUCA UNIT #: [id number] ROOM/BED: [facility] : 69 AGE: 55 SEX: F ATTEND: Alfred Escobedo MD ADM AUTHOR: Sergio Love * ALL edits or amendments must be made on the electronic/computer document * Sergio Love 01/01/21 1215: Subjective Chief Complaint: On 15L/min NC, NRB SpO2 94% Reports no dyspnea Review of Systems ROS Constitutional: generalized weakness. Respiratory: Denies: pleuritic pain. Cardiovascular: Denies: chest pain. GI: Denies: abdominal pain. Objective General VS/I O: Last Documented: Result Date Time Temp 36.6 01/01 [...] Output, Urine 700 PATIENT WEIGHT: Weight (lb): 400 Weight (oz): 2.22 Weight (kg): 181.437 Medications: Active Meds + DC'd Last 24 Hrs Benzonatate 100 MG TID PO Dexamethasone 6 MG BID PO Famotidine 20 MG BID PO Ceftriaxone Sodium 1,000 MG Q24H IV Sterile Water 10 ML Lisinopril 20 MG DAILY PO Sertraline HCl 50 MG DAILY PO Remdesivir 100 MG Q24H IV (DC) Sodium Chloride 250 ML Dextrose/Water 50 ML ONCE PRN IV (CKD) Insulin Human Lispro S/SCALE AC HS SUBQ Enoxaparin Sodium 180 MG Q12HR SUBQ Guaifenesin/Dextromethorphan 10 ML Q4H PRN PRN PO (DC) Physical Exam Head/eyes: atraumatic, normocephalic ENT: ENT: normal nose, normal sinus Cardiovascular: normal heart sounds, normal S1/S2, regular rate rhythm, no rub , no gallop Abdomen: soft, normal bowel sounds Extremities: edema, no cyanosis, no edema Neuro/KETTLE SKIMMER: alert, oriented X 3, CNII-XII intact Results Findings/Data: Laboratory Tests 01/01/21 09: [Embedded Image Not Available] 01/01/21 0530: [Embedded Image Not Available] Laboratory Tests 01/01 01/01 01/01 1126 0811 0530 [...] 246 Unit/L) 281 H Laboratory Tests 01/01 530 Coagulation D-Dimer (215 - 500 ng/mLFEU) 430 Laboratory Tests 01/01 930 Hematology WBC (3.5 - 11.0 K/mm3) 9.0 [...] (Auto) (20.5 - 51.1 %) 8.0 L [place] % (Auto) (1.7 - 9.3 %) 5.6 Eos % (Auto) (0.0 - 6.0 %) 0.1 Baso % (Auto) (0.0 - 2.0 %) 0.2 Neut # (Auto) (1.8 - 7.6 K/mm3) 7.5 Lymph # (Auto) (0.6 - 3.2 K/mm3) 0.7 [place] # (Auto) (0.3 - 1.1 K/mm3) 0.5 [...] THOUSAND) DECREASED Plt Morphology Comment CLUMPS Radiology data: Recent Impressions: RADIOLOGY - XR CHEST 1 V 01/01 0600 Report Impression - Status: SIGNED Entered: 01/01/2021 5538 IMPRESSION: Essentially unchanged bilateral scattered interstitial and groundglass airspace opacities. Impression By: [email or web address] - Adam Matthew M.D. Diagnosis, Assessment Plan Hospital course to date: Assessment 1. Acute hypoxic respiratory failure 2. Acute viral pneumonia due to COVID-19 infection 3. Sleep apnea Plan Comfortable on 15L/min NC, NRB; titrate oxygen to maintan SpO2 > 92% Needs to wear her NIPPV QHS and for naps during the day CTA without pulmonary embolism, does show bilateral patchy infiltrates consistent with COVID-19 CXR reviewed with slightly improved right lung airspace opacities S/p convalescent plasma, remdesivir Continue Dexamethasone BID, increase dose Continue ceftraixone Infectious disease on board Enhanced anticoagulation GI prophylaxis IMCU Daniel Tariq 01/01/21 2207: Diagnosis, Assessment Plan Hospital course to date: evaluated, discussed with PMO BUSINESS ANALYST . discussed plan Agree with above at 1541 at 2207 RPT #: [id number] END OF REPORT [id number] 11:58:00 [facility]) Hospitalist Progress Note REPORT#:[id number] REPORT STATUS: Signed DATE:01/01/21 TIME:1158 PATIENT: LORI DELUCA UNIT #: [id number] ROOM/BED: [place] [id number] : 69 AGE: 55 SEX: F ATTEND: Alfred Escobedo MD ADM AUTHOR: Yandy Johnson MD * ALL edits or amendments must be made on the electronic/computer document * Subjective Chief Complaint: stable. On high flow oxygen currently 15 L - some dry cough Review of Systems Respiratory: Denies: SOB. Cardiovascular: Denies: chest pain. GI: Denies: nausea, vomiting. Neuro: Denies: headache. Objective General VS/I O: Vital Signs: Date Time Temp Pulse Resp B/P [...] Output, Urine 700 PATIENT WEIGHT: Weight (lb): 400 Weight (oz): 2.22 Weight (kg): 181.437 Physical Exam General appearance: alert, awake Neck: non-tender, no JVD Cardiovascular: regular rate rhythm, no murmur, no rub, no thrill Respiratory: decreased breath sounds, hypoxia Abdomen: non-tender, normal bowel sounds, soft, no distention, no guarding Extremities: moves all, no edema Neuro/KETTLE SKIMMER: alert, oriented X 3, normal speech, no motor deficits, no sensory deficits Psychiatry: normal affect Diagnosis, Assessment Plan Free Text DxA P Notes Free text DxA P notes: Acute hypoxic respiratory failure with COVID-19 pneumonia We will admit the patient Start the patient on steroids We will hold off on antibiotics as patient is afebrile white count is normal we will try to get CT scan of the chest to see if there are some infiltrates or not. We will get CT of the chest to assess the infiltrates As D-dimer is elevated and troponins are elevated will continue with therapeutic anticoagulation Symptomatic management We will ask infectious disease and pulmonary to evaluate Started the patient on remdesivir Continue supplemental oxygen to keep O2 sat above 90% and monitor respiratory status closely Proning NSTEMI Possibly type II in the setting of COVID-19 pneumonia with hypoxia. We will continue to trend troponins. Keep the patient on aspirin statin. We will get an echocardiogram. Monitor on telemetry. Hypertension Resume lisinopril monitor blood pressure keep on as needed hydralazine Prediabetes Now that the patient will be on steroids we will keep on insulin sliding scale monitor blood sugars keep on diabetic diet COPD Does not appear to be in COPD exacerbation will be on steroids supplemental oxygen. Monitor respiratory status closely. Pulmonary on board. DVT GI prophylaxis Patient is full code Patient was explained the plan in detail all medication effect side effects were discussed all was well associated with the plan Next of kin sister Madelyn ferguson [phone] 12/28/2020 Covid 19 Pneumonia COPD HTN DM Morbid Obesity Plan ----- -Continue on remdesevir -Continue COVID treatment protocol ( steroids, vit c/d/zinc) -Prone positioning as tolerated -Monitor inflammatory markers -Hiflow oxygen prn -Pulm and ID following -Accuchecks with ISS -Diabetic diet -Ensure tight glucose control -Resume home meds for BP control -Dispo-pendng completion of therapy and clinical improvement 12/30/2020 - acute respiratory failure secondary to covid. 15 L high flow oxygen, wean as tolerated, cont steriod/remdesivir. PUl following - Covid 19 Pneumonia. ID following - COPD, neb tx - HTN; cont home med - DM; SSI - Morbid Obesity; lifestyle modification - Depression. zoloft - Debility. PT to mobilize DVT/PPX - lovenox plan. cont remdesivir/wean oxygen Was moved to ICU yesterday as was repeatedly taken off oxygen, currently more stable and on my evaluation is keeping on her oxygen If stable can downgrade to IMCU 12/31/2020 - acute respiratory failure secondary to covid. 15 L high flow oxygen, wean as tolerated, cont steriod/remdesivir. There is day 3 of remdesivir. - Covid 19 Pneumonia. ID following - COPD, neb tx - HTN; cont home med - DM; SSI - Morbid Obesity; lifestyle modification - Depression. zoloft - Debility. PT to mobilize DVT/PPX - lovenox weight-based plan. cont remdesivir/wean oxygen Currently in IMCU, if can wean oxygen down to 10 L, will transfer to telemetry CODE STATUS Full code Noted patient has no official past medical power of preventive medicine officer but and next of kin is her sister Madelyn Ferguson which she told me can make decisions for her if he ever becomes incapacitated. 01/01/2021 - acute respiratory failure secondary to covid. 15 L high flow oxygen, wean as tolerated, cont steriod/remdesivir. - Covid 19 Pneumonia. ID following - COPD, neb tx - HTN; cont home med - DM; SSI - Morbid Obesity; lifestyle modification - Depression. zoloft - Debility. PT to mobilize DVT/PPX - lovenox weight-based plan. cont remdesivir/wean oxygen Currently in IMCU, if can wean oxygen down to 10 L, will transfer to telemetry [facility] CODE STATUS Full code Noted patient has no official past medical power of preventive medicine officer but and next of kin is her sister Madelyn Ferguson which she told me can make decisions for her if he ever becomes incapacitated. at 1201 RPT #: [id number] END OF REPORT [id number] 11:58:00 [facility] ([facility]) Hospitalist Progress Note REPORT#:[id number] REPORT STATUS: Signed DATE:01/01/21 TIME:1158 PATIENT: LORI DELUCA UNIT #: [id number] ROOM/BED: [place] [id number] : 69 AGE: 55 SEX: F ATTEND: Alfred Escobedo MD ADM AUTHOR: Yandy Johnson MD * ALL edits or amendments must be made on the electronic/computer document * See Addendum Subjective Chief Complaint: stable. On high flow oxygen currently 15 L - some dry cough Review of Systems Respiratory: Denies: SOB. Cardiovascular: Denies: chest pain. GI: Denies: nausea, vomiting. Neuro: Denies: headache. Objective General VS/I O: Vital Signs: Date Time Temp Pulse Resp B/P [...] 12/31 1445 74 30 124/63 87 89 16 1430 73 25 132/68 92 93 16 1415 77 25 125/63 86 91 /16 1400 76 28 130/71 95 92 12/31 1345 75 27 121/69 90 93 12/31 1330 76 22 118/59 82 89 12/31 1230 83 14 129/69 94 92 12/31 1201 36.5 12/31 1201 92 39 136/75 94 79 16 1200 High flow 15 nasal cannula 24 hour I O ending at 0700: 01/01 0700 12/31 1900 Intake Total 370.00 2400.00 Output Total 700 Balance 370.00 1700.00 Intake, IV 250.00 100.00 Intake, Oral 120 2300 Output, Urine 700 PATIENT WEIGHT: Weight (lb): 400 Weight (oz): 2.22 Weight (kg): 181.437 Physical Exam General appearance: alert, awake Neck: non-tender, no JVD Cardiovascular: regular rate rhythm, no murmur, no rub, no thrill Respiratory: decreased breath sounds, hypoxia Abdomen: non-tender, normal bowel sounds, soft, no distention, no guarding Extremities: moves all, no edema Neuro/KETTLE SKIMMER: alert, oriented X 3, normal speech, no motor deficits, no sensory deficits Psychiatry: normal affect Diagnosis, Assessment Plan Free Text DxA P Notes Free text DxA P notes: Acute hypoxic respiratory failure with COVID-19 pneumonia We will admit the patient Start the patient on steroids We will hold off on antibiotics as patient is afebrile white count is normal we will try to get CT scan of the chest to see if there are some infiltrates or not. We will get CT of the chest to assess the infiltrates As D-dimer is elevated and troponins are elevated will continue with therapeutic anticoagulation Symptomatic management We will ask infectious disease and pulmonary to evaluate Started the patient on remdesivir Continue supplemental oxygen to keep O2 sat above 90% and monitor respiratory status closely Proning NSTEMI Possibly type II in the setting of COVID-19 pneumonia with hypoxia. We will continue to trend troponins. Keep the patient on aspirin statin. We will get an echocardiogram. Monitor on telemetry. Hypertension Resume lisinopril monitor blood pressure keep on as needed hydralazine Prediabetes Now that the patient will be on steroids we will keep on insulin sliding scale monitor blood sugars keep on diabetic diet COPD Does not appear to be in COPD exacerbation will be on steroids supplemental oxygen. Monitor respiratory status closely. Pulmonary on board. DVT GI prophylaxis Patient is full code Patient was explained the plan in detail all medication effect side effects were discussed all was well associated with the plan Next of kin sister Madelyn ferguson [phone] 12/28/2020 Covid 19 Pneumonia COPD HTN DM Morbid Obesity Plan ----- -Continue on remdesevir -Continue COVID treatment protocol ( steroids, vit c/d/zinc) -Prone positioning as tolerated -Monitor inflammatory markers -Hiflow oxygen prn -Pulm and ID following -Accuchecks with ISS -Diabetic diet -Ensure tight glucose control -Resume home meds for BP control -Dispo-pendng completion of therapy and clinical improvement 12/30/2020 - acute respiratory failure secondary to covid. 15 L high flow oxygen, wean as tolerated, cont steriod/remdesivir. PUl following - Covid 19 Pneumonia. ID following - COPD, neb tx - HTN; cont home med - DM; SSI - Morbid Obesity; lifestyle modification - Depression. zoloft - Debility. PT to mobilize DVT/PPX - lovenox plan. cont remdesivir/wean oxygen Was moved to ICU yesterday as was repeatedly taken off oxygen, currently more stable and on my evaluation is keeping on her oxygen If stable can downgrade to IMCU 12/31/2020 - acute respiratory failure secondary to covid. 15 L high flow oxygen, wean as tolerated, cont steriod/remdesivir. There is day 3 of remdesivir. - Covid 19 Pneumonia. ID following - COPD, neb tx - HTN; cont home med - DM; SSI - Morbid Obesity; lifestyle modification - Depression. zoloft - Debility. PT to mobilize DVT/PPX - lovenox weight-based plan. cont remdesivir/wean oxygen Currently in IMCU, if can wean oxygen down to 10 L, will transfer to telemetry CODE STATUS Full code Noted patient has no official past medical power of preventive medicine officer but and next of kin is her sister Madelyn Ferguson which she told me can make decisions for her if he ever becomes incapacitated. 01/01/2021 - acute respiratory failure secondary to covid. 15 L high flow oxygen, wean as tolerated, cont steriod/remdesivir. - Covid 19 Pneumonia. ID following - COPD, neb tx - HTN; cont home med - DM; SSI - Morbid Obesity; lifestyle modification - Depression. zoloft - Debility. PT to mobilize DVT/PPX - lovenox weight-based plan. cont remdesivir/wean oxygen Currently in IMCU, if can wean oxygen down to 10 L, will transfer to telemetry [place] CODE STATUS Full code Noted patient has no official past medical power of preventive medicine officer but and next of kin is her sister Madelyn Ferguson which she told me can make decisions for her if he ever becomes incapacitated. at 1201 Addendum 1: 01/01/211757 by Yandy Johnson MD critical care time 35 mins at 1758 RPT #: [id number] END OF REPORT [id number] 10:13:00 [facility] ([facility]) Infectious Dis. Progress Note REPORT#:[id number] REPORT STATUS: Signed DATE:01/01/21 TIME:1013 PATIENT: LORI DELUCA UNIT #: [id number] ROOM/BED: [place] [id number] : 69 AGE: 55 SEX: F ATTEND: Alfred Escobedo MD ADM AUTHOR: Andrew Aguilar MD * ALL edits or amendments must be made on the electronic/computer document * Subjective Chief Complaint: Pneumonia HPI: Pt is on 15L O2. CRP decreasing. Review of Systems Constitutional: Denies: fever. Objective Physical Exam Head/Eyes: atraumatic, EOMI, normocephalic Cardiovascular: regular rate rhythm Respiratory: on oxygen Abdomen: non-tender, soft Musculoskeletal: no joint swelling Neuro/KETTLE SKIMMER: alert, oriented X 3 Skin: normal color, normal turgor, no rash Diagnosis, Assessment Plan Free Text A P: Laboratory Tests 01/01/21 0930: [Embedded Image Not Available] 01/01/21 0530: [Embedded Image Not Available] Assessment: 1. Pneumonia with covid-19 s/p CV plasma and remdesivir. 2. Acute respiratory failure with hypoxia. 3. Morbid obesity. Plan: 1. Steroids. 2. Monitor inflammatory markers. CRP has decreased. 3. Continue ceftriaxone (day 3) empirically due to increasing CRP and WBC. 4. Wean O2 as tolerated. at 1158 RPT #: [id number] END OF REPORT [id number] 15:16:00 [facility] ([facility]) Infectious Dis. Progress Note REPORT#:[id number] REPORT STATUS: Signed DATE:12/31/20 TIME:1515 PATIENT: LORI DELUCA UNIT #: [id number] ROOM/BED: [facility] : 69 AGE: 55 SEX: F ATTEND: Alfred Escobedo MD ADM AUTHOR: Annalisa Hernandez * ALL edits or amendments must be made on the electronic/computer document * Annailsa Hernandez 12/31/20 1516: Subjective Chief Complaint: Pneumonia HPI: Patient moved to IMCU, step down from ICU; WBC trending upwards @ 10.8 and CRP trending upwards @ 18.8 today. Patient states she feels better than previous day and afebrile today. Review of Systems Constitutional: Denies: chills, fatigue, fever. Neuro: Denies: confusion, dizziness. Objective Physical Exam General appearance: alert, awake, oriented Head/Eyes: atraumatic, EOMI, normocephalic Neck: full range of motion, non-tender Cardiovascular: regular rate rhythm Respiratory: on oxygen Abdomen: non-tender, soft Extremities: moves all, normal capillary refill, no clubbing, no cyanosis Neuro/KETTLE SKIMMER: alert, oriented X 3 Results Findings/Data: Laboratory Tests 12/31 12/31 12/31 12/30 12/30 1156 0754 0435 1943 1718 Chemistry Sodium (134 - 147 mmol/L) 138 Potassium (3.4 - 5.0 mmol/L) 4.7 Chloride (100 - 108 mmol/L) 103 Carbon Dioxide (21 - 32 mmol/L) 34 H Anion Gap (4.0 - 15.0 GAP calc) 1.0 L BUN (7 - 18 MG/DL) 20 H Creatinine (0.6 - 1.0 MG/DL) 0.5 L Glomerular Filtr Rate (>60 >=60 max estimate estGFR) Glucose (70 - 110 MG/DL) 156 H [...] (Auto) (20.5 - 51.1 %) 5.8 L [place] % (Auto) (1.7 - 9.3 %) 4.1 Eos % (Auto) (0.0 - 6.0 %) 0.0 Baso % (Auto) (0.0 - 2.0 %) 0.2 Neut # (Auto) (1.8 - 7.6 K/mm3) 9.5 H Lymph # (Auto) (0.6 - 3.2 K/mm3) 0.6 P[place]a # (Auto) (0.3 - 1.1 K/mm3) 0.4 Eos # (Auto) (0.0 - 0.4 K/mm3) 0.0 Baso # (Auto) (0.0 - 0.1 K/mm3) 0.0 Abs Immat Gran (auto) (0.00 - 0.03 x10 3/uL) 0.16 H Add Manual Diff (CRITERIA DIFF/SCN) NO Immature Gran % (0.0 - 5.0 %) 1.5 Nucleated RBC % (0.0 - 1.0 /100WBC%) 0.6 Diagnosis, Assessment Plan Free Text A P: Recent Impressions: RADIOLOGY - XR CHEST 1 V 12/30 0400 Report Impression - Status: SIGNED Entered: 12/30/2020 0909 IMPRESSION: Continued progression of bilateral scattered interstitial and groundglass airspace opacities. Impression By: DakotahANSMarley Matthew M.D. Assessment: 1. Pneumonia with covid-19 s/p CV plasma. 2. Acute respiratory failure with hypoxia. 3. Morbid obesity. Plan: 1. Continue remdesivir (day 5 of 5). 2. Steroids. 3. Monitor inflammatory markers. CRP has increased to 18.8 4. Continue ceftriaxone (day 2 of 5) empirically due to increasing CRP and WBC. Rudy Aguilar 12/31/20 1556: Attestations Attestation needed: supervising physician Physician Attestation Agree w/findings plan: Agree with the findings and plan as documented by TERE Hernandez. Pt with covid-19. She completed 5 days of remdesivir today. Will continue with empiric ceftriaxone for now for possible bacterial PNA. Wean O2 as tolerated. [ ] at 1557 RPT #: [id number] END OF REPORT [id number] 15:16:00 [facility]) Infectious Dis. Progress Note REPORT#:[id number] REPORT STATUS: Signed DATE:12/31/20 TIME:1515 PATIENT: LORI DELUCA UNIT #: [id number] ROOM/BED: [place] [id number] : 69 AGE: 55 SEX: F ATTEND: Alfred Escobedo MD ADM AUTHOR: Annalisa Hernandez * ALL edits or amendments must be made on the electronic/computer document * Annalisa Hernandez 12/31/20 1516: Subjective Chief Complaint: Pneumonia HPI: Patient moved to [facility], step down from ICU; WBC trending upwards @ 10.8 and CRP trending upwards @ 18.8 today. Patient states she feels better than previous day and afebrile today. Review of Systems Constitutional: Denies: chills, fatigue, fever. Neuro: Denies: confusion, dizziness. Objective Physical Exam General appearance: alert, awake, oriented Head/Eyes: atraumatic, EOMI, normocephalic Neck: full range of motion, non-tender Cardiovascular: regular rate rhythm Respiratory: on oxygen Abdomen: non-tender, soft Extremities: moves all, normal capillary refill, no clubbing, no cyanosis Neuro/KETTLE SKIMMER: alert, oriented X 3 Results Findings/Data: Laboratory Tests 12/31 12/31 12/31 12/30 12/30 4866 3091 6927 5379 3288 Chemistry Sodium (134 - 147 mmol/L) 138 Potassium (3.4 - 5.0 mmol/L) 4.7 Chloride (100 - 108 mmol/L) 103 Carbon Dioxide (21 - 32 mmol/L) 34 H Anion Gap (4.0 - 15.0 GAP calc) 1.0 L BUN (7 - 18 MG/DL) 20 H Creatinine (0.6 - 1.0 MG/DL) 0.5 L Glomerular Filtr Rate (>60 >=60 max estimate estGFR) Glucose (70 - 110 MG/DL) 156 H [...] (Auto) (20.5 - 51.1 %) 5.8 L [place] % (Auto) (1.7 - 9.3 %) 4.1 Eos % (Auto) (0.0 - 6.0 %) 0.0 Baso % (Auto) (0.0 - 2.0 %) 0.2 Neut # (Auto) (1.8 - 7.6 K/mm3) 9.5 H Lymph # (Auto) (0.6 - 3.2 K/mm3) 0.6 P[place]a # (Auto) (0.3 - 1.1 K/mm3) 0.4 Eos # (Auto) (0.0 - 0.4 K/mm3) 0.0 Baso # (Auto) (0.0 - 0.1 K/mm3) 0.0 Abs Immat Gran (auto) (0.00 - 0.03 x10 3/uL) 0.16 H Add Manual Diff (CRITERIA DIFF/SCN) NO Immature Gran % (0.0 - 5.0 %) 1.5 Nucleated RBC % (0.0 - 1.0 /100WBC%) 0.6 Diagnosis, Assessment Plan Free Text A P: Recent Impressions: RADIOLOGY - XR CHEST 1 V 12/30 0400 Report Impression - Status: SIGNED Entered: 12/30/2020 0909 IMPRESSION: Continued progression of bilateral scattered interstitial and groundglass airspace opacities. Impression By: DakotahANSMarley - Adam Matthew M.D. Assessment: 1. Pneumonia with covid-19 s/p CV plasma. 2. Acute respiratory failure with hypoxia. 3. Morbid obesity. Plan: 1. Continue remdesivir (day 5 of 5). 2. Steroids. 3. Monitor inflammatory markers. CRP has increased to 18.8 4. Continue ceftriaxone (day 2 of 5) empirically due to increasing CRP and WBC. Rudy Aguilar 12/31/20 1556: Attestations Attestation needed: supervising physician Physician Attestation Agree w/findings plan: Agree with the findings and plan as documented by TERE Hernandez. Pt with covid-19. She completed 5 days of remdesivir today. Will continue with empiric ceftriaxone for now for possible bacterial PNA. Wean O2 as tolerated. [ ] at 1557 at 1604 RPT #: [id number] END OF REPORT [id number] 13:02:00 [facility] ([facility]) Pulmonology Progress Note REPORT#:[id number] REPORT STATUS: Signed DATE:12/31/20 TIME:1302 PATIENT: LORI DELUCA UNIT #: [id number] ROOM/BED: [place] [id number] : 69 AGE: 55 SEX: F ATTEND: Alfred Escobedo MD ADM AUTHOR: Sergio Love * ALL edits or amendments must be made on the electronic/computer document * Subjective Chief Complaint: On 15L/min NC SpO2 94% Reports no dyspnea Review of Systems ROS Constitutional: generalized weakness. Respiratory: Denies: pleuritic pain. Cardiovascular: Denies: chest pain. GI: Denies: abdominal pain. Objective General VS/I O: Last Documented: Result Date Time Temp 36.5 12/31 [...] Urine 1100 200 PATIENT WEIGHT: Weight (lb): 400 Weight (oz): 2.22 Weight (kg): 181.437 Medications: Active Meds + DC'd Last 24 Hrs Dexamethasone 6 MG BID PO Famotidine 20 MG BID PO Ceftriaxone Sodium 1,000 MG Q24H IV Sterile Water 10 ML Lisinopril 20 MG DAILY PO Sertraline HCl 50 MG DAILY PO Dexamethasone Sodium Phosphate 6 MG BID IV (DC) Remdesivir 100 MG Q24H IV Sodium Chloride 250 ML Dextrose/Water 50 ML ONCE PRN IV (CKD) Insulin Human Lispro S/SCALE AC HS SUBQ Enoxaparin Sodium 180 MG Q12HR SUBQ Guaifenesin/Dextromethorphan 10 ML Q4H PRN PRN PO Physical Exam Head/eyes: atraumatic, normocephalic ENT: ENT: normal nose, normal sinus Cardiovascular: normal heart sounds, normal S1/S2, regular rate rhythm, no rub , no gallop Abdomen: soft, normal bowel sounds Extremities: edema, no cyanosis, no edema Neuro/KETTLE SKIMMER: alert, oriented X 3, CNII-XII intact Results Findings/Data: Laboratory Tests 12/31/20 0435: [Embedded Image Not Available] Laboratory Tests 12/31 12/31 12/31 12/30 1156 0759 3431 6513 Chemistry Sodium (134 - 147 mmol/L) 138 [...] - 110 mg/dL) 185 H Laboratory Tests 12/315 Hematology WBC (3.5 - 11.0 K/mm3) 10.8 [...] (Auto) (20.5 - 51.1 %) 5.8 L [place] % (Auto) (1.7 - 9.3 %) 4.1 Eos % (Auto) (0.0 - 6.0 %) 0.0 Baso % (Auto) (0.0 - 2.0 %) 0.2 Neut # (Auto) (1.8 - 7.6 K/mm3) 9.5 H Lymph # (Auto) (0.6 - 3.2 K/mm3) 0.6 P[place]a # (Auto) (0.3 - 1.1 K/mm3) 0.4 Eos # (Auto) (0.0 - 0.4 K/mm3) 0.0 Baso # (Auto) (0.0 - 0.1 K/mm3) 0.0 Abs Immat Gran (auto) (0.00 - 0.03 x10 3/uL) 0.16 H Add Manual Diff (CRITERIA DIFF/SCN) NO Immature Gran % (0.0 - 5.0 %) 1.5 Nucleated RBC % (0.0 - 1.0 /100WBC%) 0.6 Diagnosis, Assessment Plan Free Text A P: Assessment 1. Acute hypoxic respiratory failure 2. Acute viral pneumonia due to COVID-19 infection 3. Sleep apnea Plan Comfortable on 15L/min NC Needs to wear her NIPPV QHS and for naps during the day CTA without pulmonary embolism, does show bilateral patchy infiltrates consistent with COVID-19 Remdisivir day 5 of 5 S/p convalescent plasma Continue Dexamethasone BID Infectious disease on board Enhanced anticoagulation GI prophylaxis IMCU at 1618 RPT #: [id number] END OF REPORT [id number] 13:02:00 [facility] ([facility]) Pulmonology Progress Note REPORT#:[id number] REPORT STATUS: Signed DATE:12/31/20 TIME:130 PATIENT: LORI DELUCA UNIT #: [id number] ROOM/BED: [place] [id number] : 69 AGE: 55 SEX: F ATTEND: Alfred Escobedo MD ADM AUTHOR: Sergio Love * ALL edits or amendments must be made on the electronic/computer document * Sergio Love 12/31/20 1302: Subjective Chief Complaint: On 15L/min NC SpO2 94% Reports no dyspnea Review of Systems ROS Constitutional: generalized weakness. Respiratory: Denies: pleuritic pain. Cardiovascular: Denies: chest pain. GI: Denies: abdominal pain. Objective General VS/I O: Last Documented: Result Date Time Temp 36.5 12/31 [...] Urine 1100 200 PATIENT WEIGHT: Weight (lb): 400 Weight (oz): 2.22 Weight (kg): 181.437 Medications: Active Meds + DC'd Last 24 Hrs Dexamethasone 6 MG BID PO Famotidine 20 MG BID PO Ceftriaxone Sodium 1,000 MG Q24H IV Sterile Water 10 ML Lisinopril 20 MG DAILY PO Sertraline HCl 50 MG DAILY PO Dexamethasone Sodium Phosphate 6 MG BID IV (DC) Remdesivir 100 MG Q24H IV Sodium Chloride 250 ML Dextrose/Water 50 ML ONCE PRN IV (CKD) Insulin Human Lispro S/SCALE AC HS SUBQ Enoxaparin Sodium 180 MG Q12HR SUBQ Guaifenesin/Dextromethorphan 10 ML Q4H PRN PRN PO Physical Exam Head/eyes: atraumatic, normocephalic ENT: ENT: normal nose, normal sinus Cardiovascular: normal heart sounds, normal S1/S2, regular rate rhythm, no rub , no gallop Abdomen: soft, normal bowel sounds Extremities: edema, no cyanosis, no edema Neuro/KETTLE SKIMMER: alert, oriented X 3, CNII-XII intact Results Findings/Data: Laboratory Tests 12/31/20 0435: [Embedded Image Not Available] Laboratory Tests 12/31 12/31 12/31 12/30 1156 0754 0435 1943 Chemistry Sodium (134 - 147 mmol/L) 138 [...] (Auto) (20.5 - 51.1 %) 5.8 L [place] % (Auto) (1.7 - 9.3 %) 4.1 Eos % (Auto) (0.0 - 6.0 %) 0.0 Baso % (Auto) (0.0 - 2.0 %) 0.2 Neut # (Auto) (1.8 - 7.6 K/mm3) 9.5 H Lymph # (Auto) (0.6 - 3.2 K/mm3) 0.6 P[place]a # (Auto) (0.3 - 1.1 K/mm3) 0.4 Eos # (Auto) (0.0 - 0.4 K/mm3) 0.0 Baso # (Auto) (0.0 - 0.1 K/mm3) 0.0 Abs Immat Gran (auto) (0.00 - 0.03 x10 3/uL) 0.16 H Add Manual Diff (CRITERIA DIFF/SCN) NO Immature Gran % (0.0 - 5.0 %) 1.5 Nucleated RBC % (0.0 - 1.0 /100WBC%) 0.6 Diagnosis, Assessment Plan Free Text A P: Assessment 1. Acute hypoxic respiratory failure 2. Acute viral pneumonia due to COVID-19 infection 3. Sleep apnea Plan Comfortable on 15L/min NC Needs to wear her NIPPV QHS and for naps during the day CTA without pulmonary embolism, does show bilateral patchy infiltrates consistent with COVID-19 Remdisivir day 5 of 5 S/p convalescent plasma Continue Dexamethasone BID Infectious disease on board Enhanced anticoagulation GI prophylaxis IMCU Daniel Tariq 12/31/202021: Diagnosis, Assessment Plan Free Text A P: evaluated, discussed with PMO BUSINESS ANALYST . discussed plan Agree with above at 1618 at 2021 RPT #: [id number] END OF REPORT [id number] 12:46:00 [facility] Hospitalist Progress Note REPORT#:[id number] REPORT STATUS: Signed DATE:12/31/20 TIME:1246 PATIENT: LORI DELUCA UNIT #: [id number] ROOM/BED: [place] [id number] : 69 AGE: 55 SEX: F ATTEND: Alfred Escobedo MD ADM AUTHOR: Yandy Johnson MD * ALL edits or amendments must be made on the electronic/computer document * Subjective Chief Complaint: stable. On high flow oxygen currently 15 L - some dry cough Review of Systems Respiratory: Denies: SOB. Cardiovascular: Denies: chest pain. GI: Denies: nausea, vomiting. Objective General VS/I O: Vital Signs: Date Time Temp Pulse Resp B/P B/P Pulse O2 O2 Flow FiO2 Mean Ox Delivery Rate 12/31 1201 36.5 12/31 0839 93 High flow 15 nasal cannula 12/31 0800 36.8 12/31 0608 77 92 12/31 0607 78 123/78 12/31 0600 81 23 12/31 0500 77 12/31 0445 81 26 92 12/31 0430 71 95 12/31 0415 66 26 94 12/31 0400 78 12/31 0323 36.9 12/31 0100 79 114/72 93 12/31 0045 71 119/68 92 06/16 0030 76 113/63 92 /16 0015 74 124/75 93 06/16 0000 69 27 124/74 94 06/15 2300 36.8 06/15 2201 High flow 15 nasal cannula / 1945 36.7 06/15 1940 73 95 06/15 1930 74 27 110/70 95 /15 1915 71 26 108/64 96 06/15 1900 68 25 108/60 94 /15 1849 96 High flow 15 100 nasal cannula /15 1730 75 30 109/65 81 90 06/15 1724 36.8 06/15 1700 81 29 106/67 82 91 06/15 1630 73 31 114/76 88 95 06/15 1600 High flow 15 nasal cannula /15 1600 67 22 111/61 80 95 /15 1516 73 25 107/62 77 88 06/15 1400 69 26 121/70 90 96 /15 1301 74 30 113/62 82 94 24 hour I O ending at 0700: 12/31 0700 12/30 1900 Intake Total 500 1350.00 Output Total 1100 200 Balance -600 1150.00 Intake, IV 250.00 Intake, Oral 500 1100 Output, Urine 1100 200 PATIENT WEIGHT: Weight (lb): 400 Weight (oz): 2.22 Weight (kg): 181.437 Physical Exam General appearance: alert, awake Neck: non-tender, no JVD Cardiovascular: regular rate rhythm, no murmur, no rub, no thrill Respiratory: decreased breath sounds, hypoxia Abdomen: non-tender, normal bowel sounds, soft, no distention, no guarding Extremities: moves all, no edema Neuro/KETTLE SKIMMER: alert, oriented X 3, normal speech, no motor deficits, no sensory deficits Psychiatry: normal affect Diagnosis, Assessment Plan Free Text DxA P Notes Free text DxA P notes: Acute hypoxic respiratory failure with COVID-19 pneumonia We will admit the patient Start the patient on steroids We will hold off on antibiotics as patient is afebrile white count is normal we will try to get CT scan of the chest to see if there are some infiltrates or not. We will get CT of the chest to assess the infiltrates As D-dimer is elevated and troponins are elevated will continue with therapeutic anticoagulation Symptomatic management We will ask infectious disease and pulmonary to evaluate Started the patient on remdesivir Continue supplemental oxygen to keep O2 sat above 90% and monitor respiratory status closely Proning NSTEMI Possibly type II in the setting of COVID-19 pneumonia with hypoxia. We will continue to trend troponins. Keep the patient on aspirin statin. We will get an echocardiogram. Monitor on telemetry. Hypertension Resume lisinopril monitor blood pressure keep on as needed hydralazine Prediabetes Now that the patient will be on steroids we will keep on insulin sliding scale monitor blood sugars keep on diabetic diet COPD Does not appear to be in COPD exacerbation will be on steroids supplemental oxygen. Monitor respiratory status closely. Pulmonary on board. DVT GI prophylaxis Patient is full code Patient was explained the plan in detail all medication effect side effects were discussed all was well associated with the plan Next of kin sister Madelyn ferguson [phone] 12/28/2020 Covid 19 Pneumonia COPD HTN DM Morbid Obesity Plan ----- -Continue on remdesevir -Continue COVID treatment protocol ( steroids, vit c/d/zinc) -Prone positioning as tolerated -Monitor inflammatory markers -Hiflow oxygen prn -Pulm and ID following -Accuchecks with ISS -Diabetic diet -Ensure tight glucose control -Resume home meds for BP control -Dispo-pendng completion of therapy and clinical improvement 12/30/2020 - acute respiratory failure secondary to covid. 15 L high flow oxygen, wean as tolerated, cont steriod/remdesivir. PUl following - Covid 19 Pneumonia. ID following - COPD, neb tx - HTN; cont home med - DM; SSI - Morbid Obesity; lifestyle modification - Depression. zoloft - Debility. PT to mobilize DVT/PPX - lovenox plan. cont remdesivir/wean oxygen Was moved to ICU yesterday as was repeatedly taken off oxygen, currently more stable and on my evaluation is keeping on her oxygen If stable can downgrade to IMCU 12/31/2020 - acute respiratory failure secondary to covid. 15 L high flow oxygen, wean as tolerated, cont steriod/remdesivir. There is day 3 of remdesivir. - Covid 19 Pneumonia. ID following - COPD, neb tx - HTN; cont home med - DM; SSI - Morbid Obesity; lifestyle modification - Depression. zoloft - Debility. PT to mobilize DVT/PPX - lovenox weight-based plan. cont remdesivir/wean oxygen Currently in IMCU, if can wean oxygen down to 10 L, will transfer to telemetry CODE STATUS Full code Noted patient has no official past medical power of preventive medicine officer but and next of kin is her sister Madelyn Ferguson which she told me can make decisions for her if he ever becomes incapacitated. at 1249 RPT #: [id number] END OF REPORT [id number] 15:04:00 [facility]) Pulmonology Progress Note REPORT#:[id number] REPORT STATUS: Signed DATE:12/30/20 TIME:1504 PATIENT: LORI DELUCA UNIT #: [id number] ROOM/BED: [place] [id number] : 69 AGE: 55 SEX: F ATTEND: Alfred Escobedo MD ADM AUTHOR: Daniel Tariq MD * ALL edits or amendments must be made on the electronic/computer document * Subjective Chief Complaint: On 13L/min NC Reports no dyspnea Objective General VS/I O: Last Documented: Result Date Time B/P 143/79 12/30 [...] 181.437 kg Weight PATIENT WEIGHT: Weight (lb): 400 Weight (oz): 2.22 Weight (kg): 181.437 Medications: Active Meds + DC'd Last 24 Hrs Famotidine 20 MG BID PO Ceftriaxone Sodium 1,000 MG Q24H IV Sterile Water 10 ML Lisinopril 20 MG DAILY PO Sertraline HCl 50 MG DAILY PO Dexamethasone Sodium Phosphate 6 MG BID IV Remdesivir 100 MG Q24H IV Sodium Chloride 250 ML Dextrose/Water 50 ML ONCE PRN IV (CKD) Insulin Human Lispro S/SCALE AC HS SUBQ Enoxaparin Sodium 180 MG Q12HR SUBQ Dexamethasone Sodium Phosphate 6 MG DAILY IV (DC) Guaifenesin/Dextromethorphan 10 ML Q4H PRN PRN PO Physical Exam General appearance: alert, awake Head/eyes: atraumatic, normocephalic ENT: ENT: normal nose, normal sinus Cardiovascular: normal heart sounds, normal S1/S2, regular rate rhythm, no rub , no gallop Abdomen: soft, normal bowel sounds Extremities: edema, no cyanosis, no edema Neuro/KETTLE SKIMMER: alert, oriented X 3, CNII-XII intact Psychiatry: normal affect, normal judgment/insight Results Findings/Data: Laboratory Tests 12/30/20 0520: [Embedded Image Not Available] 12/30/20424: [Embedded Image Not Available] Laboratory Tests 12/29 12/29 8777 9446 Blood Gas Puncture Site (DESCRIPTION ARTKIT) Right [...] Protein (0.000 - 0.3 MG/DL) 18.800 H 12/307 1640 Chemistry Sodium (134 - 147 mmol/L) [...] (Auto) (20.5 - 51.1 %) 7.8 L [place] % (Auto) (1.7 - 9.3 %) 4.5 Eos % (Auto) (0.0 - 6.0 %) 0.0 Baso % (Auto) (0.0 - 2.0 %) 0.1 Neut # (Auto) (1.8 - 7.6 K/mm3) 7.1 Lymph # (Auto) (0.6 - 3.2 K/mm3) 0.6 [place] # (Auto) (0.3 - 1.1 K/mm3) 0.4 Eos # (Auto) (0.0 - 0.4 K/mm3) 0.0 Baso # (Auto) (0.0 - 0.1 K/mm3) 0.0 Abs Immat Gran (auto) (0.00 - 0.03 x10 3/uL) 0.10 H Add Manual Diff (CRITERIA DIFF/SCN) NO Immature Gran % (0.0 - 5.0 %) 1.2 Nucleated RBC % (0.0 - 1.0 /100WBC%) 0.4 Radiology data: Recent Impressions: RADIOLOGY - XR CHEST 1 V 12/30 0400 Report Impression - Status: SIGNED Entered: 12/30/2020 0909 IMPRESSION: Continued progression of bilateral scattered interstitial and groundglass airspace opacities. Impression By: DakotahANSMarley - Adam Matthew M.D. Diagnosis, Assessment Plan Free Text A P: Assessment 1. Acute hypoxic respiratory failure 2. Acute viral pneumonia due to COVID-19 infection 3. Sleep apnea Plan upgraded yesterday with desaturation Currently more comfortable D/G to IMU Needs to wear her NIPPV QHS and for naps during the day CTA without pulmonary embolism, does show bilateral patchy infiltrates consistent with COVID-19 Remdisivir day 4 of 5 S/p convalescent plasma examethasone to BID Infectious disease on board Enhanced anticoagulation GI prophylaxis at 1510 RPT #: [id number] END OF REPORT [id number] 11:33:00 [facility] ([facility]) Hospitalist Progress Note REPORT#:[id number] REPORT STATUS: Signed DATE:12/30/20 TIME:1133 PATIENT: LORI DELUCA UNIT #: [id number] [address] : [birth year] AGE: 55 SEX: F ATTEND: Alfred Escobedo MD ADM AUTHOR: Yandy Johnson MD * ALL edits or amendments must be made on the electronic/computer document * Subjective Chief Complaint: stable. On high flow oxygen currently Review of Systems Respiratory: Reports: non productive cough, SOB. Cardiovascular: Denies: chest pain. GI: Denies: nausea, vomiting. Neuro: Denies: dizziness. Objective General VS/I O: Vital Signs: Date Time Temp Pulse Resp B/P B/P Pulse O2 O2 Flow FiO2 Mean Ox Delivery Rate / 1101 35.6 143/79 103 06/15 1100 71 20 95 06/15 1046 69 27 146/72 104 88 06/15 1045 67 20 98 06/15 1031 71 24 131/83 102 97 06/15 1030 73 22 94 06/15 1016 77 27 129/69 96 06/15 1015 [...] 06/15 0045 67 24 128/74 95 97 06/15 0030 66 22 130/77 97 97 06/15 0015 66 23 121/77 95 96 06/15 0006 66 97 70 06/15 0000 36.1 68 22 118/78 91 97 BiPAP 70 06/15 0000 68 22 118/78 93 97 06/14 2345 69 21 107/70 84 96 06/14 2331 72 26 115/64 83 94 06/14 2315 68 23 128/71 94 95 06/14 2300 73 21 130/77 94 94 06/14 2245 72 21 128/69 92 94 06/14 2230 72 24 133/70 95 96 06/14 2215 72 23 132/73 96 95 06/14 2200 76 22 133/72 95 92 06/14 2145 75 22 125/66 88 92 06/14 2130 76 23 133/69 96 93 06/14 2115 75 24 130/65 90 92 06/14 2100 76 22 143/70 100 91 06/14 2045 79 22 141/68 97 92 06/14 2029 81 26 134/85 100 96 14 2014 84 23 130/71 94 92 06/14 1999 BiPAP 70 06/14 1999 35.9 78 25 134/75 94 95 BiPAP 70 06/14 1999 78 25 134/75 99 95 06/14 1945 87 25 138/78 96 93 06/14 1930 80 23 145/83 107 93 06/14 1924 79 96 70 06/14 1915 86 30 128/78 96 97 06/14 1901 86 28 119/79 94 97 /14 1655 36.7 108 15 130/83 98.4 84 Nasal cannula 12/29 1138 38.0 103 16 128/62 84.2 90 Nasal cannula 24 hour I O ending at 0700: 12/30 0700 12/29 1900 Intake Total 250.00 700.00 Output Total 850 700 Balance -600.00 0 Intake, IV 250.00 400.00 Intake, Oral 300 Output, Urine 850 700 Patient 181.437 kg Weight PATIENT WEIGHT: Weight (lb): 400 Weight (oz): 2.22 Weight (kg): 181.437 Physical Exam General appearance: alert, awake Cardiovascular: regular rate rhythm, no murmur, no rub, no thrill Respiratory: decreased breath sounds, hypoxia Abdomen: non-tender, normal bowel sounds, soft, no distention, no guarding Extremities: moves all, no edema Neuro/KETTLE SKIMMER: alert, oriented X 3, normal speech, no motor deficits, no sensory deficits Psychiatry: normal affect Diagnosis, Assessment Plan Free Text DxA P Notes Free text DxA P notes: Acute hypoxic respiratory failure with COVID-19 pneumonia We will admit the patient Start the patient on steroids We will hold off on antibiotics as patient is afebrile white count is normal we will try to get CT scan of the chest to see if there are some infiltrates or not. We will get CT of the chest to assess the infiltrates As D-dimer is elevated and troponins are elevated will continue with therapeutic anticoagulation Symptomatic management We will ask infectious disease and pulmonary to evaluate Started the patient on remdesivir Continue supplemental oxygen to keep O2 sat above 90% and monitor respiratory status closely Proning NSTEMI Possibly type II in the setting of COVID-19 pneumonia with hypoxia. We will continue to trend troponins. Keep the patient on aspirin statin. We will get an echocardiogram. Monitor on telemetry. Hypertension Resume lisinopril monitor blood pressure keep on as needed hydralazine Prediabetes Now that the patient will be on steroids we will keep on insulin sliding scale monitor blood sugars keep on diabetic diet COPD Does not appear to be in COPD exacerbation will be on steroids supplemental oxygen. Monitor respiratory status closely. Pulmonary on board. DVT GI prophylaxis Patient is full code Patient was explained the plan in detail all medication effect side effects were discussed all was well associated with the plan Next of kin sister Madelyn ferguson [phone] 12/28/2020 Covid 19 Pneumonia COPD HTN DM Morbid Obesity Plan ----- -Continue on remdesevir -Continue COVID treatment protocol ( steroids, vit c/d/zinc) -Prone positioning as tolerated -Monitor inflammatory markers -Hiflow oxygen prn -Pulm and ID following -Accuchecks with ISS -Diabetic diet -Ensure tight glucose control -Resume home meds for BP control -Dispo-pendng completion of therapy and clinical improvement 12/30/2020 - acute respiratory failure secondary to covid. 15 L high flow oxygen, wean as tolerated, cont steriod/remdesivir. PUl following - Covid 19 Pneumonia. ID following - COPD, neb tx - HTN; cont home med - DM; SSI - Morbid Obesity; lifestyle modification - Depression. zoloft - Debility. PT to mobilize DVT/PPX - lovenox plan. cont remdesivir/wean oxygen Was moved to ICU yesterday as was repeatedly taken off oxygen, currently more stable and on my evaluation is keeping on her oxygen If stable can downgrade to IMCU at 1135 RPT #: [id number] END OF REPORT [id number] 10:44:00 [facility] ([facility]) Infectious Dis. Progress Note REPORT#:[id number] REPORT STATUS: Signed DATE:12/30/20 TIME:1044 PATIENT: LORI DELUCA UNIT #: [id number] ROOM/BED: [place] [id number] : 69 AGE: 55 SEX: F ATTEND: Alfred Escobedo MD ADM AUTHOR: Andrew Aguilar MD * ALL edits or amendments must be made on the electronic/computer document * Subjective Chief Complaint: Pneumonia HPI: Pt was transferred to the ICU. O2 requirements increased. Review of Systems Constitutional: Denies: fever. Objective General VS/I O: Last Documented: Result Date Time Pulse Ox 95 12/30 1011 FiO2 100 12/30 1011 O2 Delivery High flow nasal cannula 12/30 1011 O2 Flow Rate 15 12/30 1011 B/P 113/68 12/30 0830 B/P Mean 85 12/30 0830 Pulse 76 12/30 0830 Resp 29 12/30 0830 Temp 36.1 12/30 0715 Vital Signs Date Temp Pulse Resp B/P B/P Mean Pulse Ox FiO2 12/29-12/30 35.9-38.0 63-108 15-30 107-156/62-85 83-107 69-100 50-100 24 hour I O ending at 0700: 12/30 0700 12/29 1900 Intake Total 250.00 700.00 Output Total 850 700 Balance -600.00 0 Intake, IV 250.00 400.00 Intake, Oral 300 Output, Urine 850 700 Patient 181.437 kg Weight PATIENT WEIGHT: Weight (lb): 400 Weight (oz): 2.22 Weight (kg): 181.437 Physical Exam General appearance: awake Head/Eyes: atraumatic, clear cornea, EOMI, normal conjunctiva/sclera, normal eyelids/periorb, normocephalic Neck: full range of motion, supple/no meningismus, no masses or swelling Cardiovascular: regular rate rhythm Respiratory: on oxygen, symmetric expansion Abdomen: non-tender, normal bowel sounds, soft, no CVA tenderness, no distention , no guarding, no mass/organomegaly, no rebound Extremities: normal temperature, no contracture, no cyanosis Musculoskeletal: no joint swelling Skin: normal color, normal turgor, no rash Psychiatry: normal affect, normal judgment/insight, normal mood Diagnosis, Assessment Plan Free Text A P: Labs: WBC normal 6/12, normal 6/15 Creatinine slight high 6/12, normal 6/15 ALT normal 6/12 Imaging: CTA no PE, there were bilateral infiltrates 12/27 Assessment: 1. Pneumonia with covid-19 s/p CV plasma. 2. Acute respiratory failure with hypoxia. 3. Morbid obesity. Plan: 1. Continue remdesivir (day 4 of 5). 2. Steroids. 3. Monitor inflammatory markers. CRP has increased. 4. Start ceftriaxone. at 1800 RPT #: [id number] END OF REPORT [id number] 15:36:00 [facility] ([facility]) Pulmonology Progress Note REPORT#:[id number] REPORT STATUS: Signed DATE:12/29/20 TIME:1536 PATIENT: LORI DELUCA UNIT #: [id number] ROOM/BED: [place] [address] : 69 AGE: 55 SEX: F ATTEND: Alfred Escobedo MD ADM AUTHOR: Sergio Love * ALL edits or amendments must be made on the electronic/computer document * Subjective Chief Complaint: On 13L/min NC Reports no dyspnea Review of Systems ROS Constitutional: generalized weakness. Respiratory: Denies: pleuritic pain. Cardiovascular: Denies: chest pain. GI: Denies: abdominal pain. Objective General VS/I O: Last Documented: Result Date Time Pulse Ox 90 [...] Intake, IV 50 PATIENT WEIGHT: Weight (lb): 400 Weight (oz): 2.22 Weight (kg): 181.437 Medications: Active Meds + DC'd Last 24 Hrs Lisinopril 20 MG DAILY PO Sertraline HCl 50 MG DAILY PO Remdesivir 100 MG Q24H IV Sodium Chloride 250 ML Diphenhydramine HCl 25 MG Q4H PRN PRN IV (DC) Dextrose/Water 50 ML ONCE PRN IV (CKD) Remdesivir 100 MG Q24H IV (DCD) Sodium Chloride 250 ML Remdesivir 100 MG Q24H IV (DC) Sodium Chloride 250 ML Insulin Human Lispro S/SCALE AC HS SUBQ Enoxaparin Sodium 180 MG Q12HR SUBQ Sodium Chloride 50 ML Q24H IV (DC) Dexamethasone Sodium Phosphate 6 MG DAILY IV Guaifenesin/Dextromethorphan 10 ML Q4H PRN PRN PO Ceftriaxone Sodium 1,000 MG X1ED STA IV (DC) Sodium Chloride 100 ML Physical Exam Head/eyes: atraumatic, normocephalic ENT: ENT: normal nose, normal sinus Cardiovascular: normal heart sounds, normal S1/S2, regular rate rhythm, no rub , no gallop Abdomen: soft, normal bowel sounds Extremities: edema, no cyanosis, no edema Neuro/KETTLE SKIMMER: alert, oriented X 3, CNII-XII intact Psychiatry: normal affect, normal judgment/insight Results Findings/Data: Laboratory Tests 12/29/20 1205: [Embedded Image Not Available] Laboratory Tests 12/29 12/29 12/29 1205 1205 1136 [...] (1.2 - 2.2 RATIO) 0.5 L 12/29 Chemistry POC Glucose (70 - 110 mg/dL) [...] Comment NORMAL Anisocytosis (NONE) NORMAL Diagnosis, Assessment Plan Free Text A P: Assessment 1. Acute hypoxic respiratory failure 2. Acute viral pneumonia due to COVID-19 infection 3. Sleep apnea Plan Comfortable on 13L/min NC Patient keeps taking her oxygen off, discussed with her to no longer remove her oxygen Needs to wear her NIPPV QHS and for naps during the day CTA without pulmonary embolism, does show bilateral patchy infiltrates consistent with COVID-19 Remdisivir day 3 of 5 S/p convalescent plasma Increase dexamethasone to BID Pending legionella antigen sputum culture Infectious disease on board Enhanced anticoagulation at 1541 RPT #: [id number] END OF REPORT [id number] 15:36:00 [facility] ([facility]) Pulmonology Progress Note REPORT#:[id number] REPORT STATUS: Signed DATE:12/29/20 TIME:153 PATIENT: LORI DELUCA UNIT #: [id number] ROOM/BED: ICU01-1 : 69 AGE: 55 SEX: F ATTEND: Alfred Escobedo MD ADM AUTHOR: Sergio Love * ALL edits or amendments must be made on the electronic/computer document * Sergio Love 12/29/20 1536: Subjective Chief Complaint: On 13L/min NC Reports no dyspnea Review of Systems ROS Constitutional: generalized weakness. Respiratory: Denies: pleuritic pain. Cardiovascular: Denies: chest pain. GI: Denies: abdominal pain. Objective General VS/I O: Last Documented: Result Date Time Pulse Ox 90 12/29 1138 B/P 128/62 12/29 1138 B/P Mean 84.2 12/29 1138 O2 Delivery Nasal cannula 12/29 113 Temp 38.0 12/29 1138 Pulse 103 12/29 1138 Resp 16 12/29 1138 FiO2 72 12/29 0945 O2 Flow Rate 13 12/29 0945 24 hour I O ending at 0700: 12/29 0700 12/28 1900 Intake Total 266 Output Total Balance 266 Intake, Fresh 216 Frozen Plasma Intake, IV 50 PATIENT WEIGHT: Weight (lb): 400 Weight (oz): 2.22 Weight (kg): 181.437 Medications: Active Meds + DC'd Last 24 Hrs Lisinopril 20 MG DAILY PO Sertraline HCl 50 MG DAILY PO Remdesivir 100 MG Q24H IV Sodium Chloride 250 ML Diphenhydramine HCl 25 MG Q4H PRN PRN IV (DC) Dextrose/Water 50 ML ONCE PRN IV (CKD) Remdesivir 100 MG Q24H IV (DCD) Sodium Chloride 250 ML Remdesivir 100 MG Q24H IV (DC) Sodium Chloride 250 ML Insulin Human Lispro S/SCALE AC HS SUBQ Enoxaparin Sodium 180 MG Q12HR SUBQ Sodium Chloride 50 ML Q24H IV (DC) Dexamethasone Sodium Phosphate 6 MG DAILY IV Guaifenesin/Dextromethorphan 10 ML Q4H PRN PRN PO Ceftriaxone Sodium 1,000 MG X1ED STA IV (DC) Sodium Chloride 100 ML Physical Exam Head/eyes: atraumatic, normocephalic ENT: ENT: normal nose, normal sinus Cardiovascular: normal heart sounds, normal S1/S2, regular rate rhythm, no rub , no gallop Abdomen: soft, normal bowel sounds Extremities: edema, no cyanosis, no edema Neuro/KETTLE SKIMMER: alert, oriented X 3, CNII-XII intact Psychiatry: normal affect, normal judgment/insight Results Findings/Data: Laboratory Tests 12/29/20 1205: [Embedded Image Not Available] Laboratory Tests 12/29 12/29 12/29 1205 1205 1136 [...] Comment NORMAL Anisocytosis (NONE) NORMAL Diagnosis, Assessment Plan Free Text A P: Assessment 1. Acute hypoxic respiratory failure 2. Acute viral pneumonia due to COVID-19 infection 3. Sleep apnea Plan Comfortable on 13L/min NC Patient keeps taking her oxygen off, discussed with her to no longer remove her oxygen Needs to wear her NIPPV QHS and for naps during the day CTA without pulmonary embolism, does show bilateral patchy infiltrates consistent with COVID-19 Remdisivir day 3 of 5 S/p convalescent plasma Increase dexamethasone to BID Pending legionella antigen sputum culture Infectious disease on board Enhanced anticoagulation Daniel Tariq 12/29/201955: Diagnosis, Assessment Plan Free Text A P: evaluated, discussed with PMO BUSINESS ANALYST . discussed plan Agree with above at 1541 RPT #: [id number] END OF REPORT [id number] 15:36:00 [facility] ([facility]) Pulmonology Progress Note REPORT#:[id number] REPORT STATUS: Signed DATE:12/29/20 TIME:153 PATIENT: LORI DELUCA UNIT #: [id number] ROOM/BED: ICU01-1 : 69 AGE: 55 SEX: F ATTEND: Alfred Escobedo MD ADM AUTHOR: Sergio Love * ALL edits or amendments must be made on the electronic/computer document * Sergio Love 12/29/20 1536: Subjective Chief Complaint: On 13L/min NC Reports no dyspnea Review of Systems ROS Constitutional: generalized weakness. Respiratory: Denies: pleuritic pain. Cardiovascular: Denies: chest pain. GI: Denies: abdominal pain. Objective General VS/I O: Last Documented: Result Date Time Pulse Ox 90 [...] Intake, IV 50 PATIENT WEIGHT: Weight (lb): 400 Weight (oz): 2.22 Weight (kg): 181.437 Medications: Active Meds + DC'd Last 24 Hrs Lisinopril 20 MG DAILY PO Sertraline HCl 50 MG DAILY PO Remdesivir 100 MG Q24H IV Sodium Chloride 250 ML Diphenhydramine HCl 25 MG Q4H PRN PRN IV (DC) Dextrose/Water 50 ML ONCE PRN IV (CKD) Remdesivir 100 MG Q24H IV (DCD) Sodium Chloride 250 ML Remdesivir 100 MG Q24H IV (DC) Sodium Chloride 250 ML Insulin Human Lispro S/SCALE AC HS SUBQ Enoxaparin Sodium 180 MG Q12HR SUBQ Sodium Chloride 50 ML Q24H IV (DC) Dexamethasone Sodium Phosphate 6 MG DAILY IV Guaifenesin/Dextromethorphan 10 ML Q4H PRN PRN PO Ceftriaxone Sodium 1,000 MG X1ED STA IV (DC) Sodium Chloride 100 ML Physical Exam Head/eyes: atraumatic, normocephalic ENT: ENT: normal nose, normal sinus Cardiovascular: normal heart sounds, normal S1/S2, regular rate rhythm, no rub , no gallop Abdomen: soft, normal bowel sounds Extremities: edema, no cyanosis, no edema Neuro/KETTLE SKIMMER: alert, oriented X 3, CNII-XII intact Psychiatry: normal affect, normal judgment/insight Results Findings/Data: Laboratory Tests 12/29/20 1205: [Embedded Image Not Available] Laboratory Tests 12/29 12/29 12/29 1205 1205 1136 [...] Comment NORMAL Anisocytosis (NONE) NORMAL Diagnosis, Assessment Plan Free Text A P: Assessment 1. Acute hypoxic respiratory failure 2. Acute viral pneumonia due to COVID-19 infection 3. Sleep apnea Plan Comfortable on 13L/min NC Patient keeps taking her oxygen off, discussed with her to no longer remove her oxygen Needs to wear her NIPPV QHS and for naps during the day CTA without pulmonary embolism, does show bilateral patchy infiltrates consistent with COVID-19 Remdisivir day 3 of 5 S/p convalescent plasma Increase dexamethasone to BID Pending legionella antigen sputum culture Infectious disease on board Enhanced anticoagulation Daniel Tariq 12/29/201955: Diagnosis, Assessment Plan Free Text A P: evaluated, discussed with PMO BUSINESS ANALYST . discussed plan Agree with above at 1541 at 1956 RPT #: [id number] END OF REPORT [id number] 11:31:00 [facility]) Infectious Dis. Progress Note REPORT#:[id number] REPORT STATUS: Signed DATE:12/29/20 TIME:113 PATIENT: LORI DELUCA UNIT #: [id number] ROOM/BED: [place] [address] : 69 AGE: 55 SEX: F ATTEND: Alfred Escobedo MD ADM AUTHOR: Andrew Aguilar MD * ALL edits or amendments must be made on the electronic/computer document * Subjective Chief Complaint: Pneumonia HPI: She has been on 13L O2. Pt sometimes removes her nasal cannula. Review of Systems Constitutional: Reports: fever. Objective General VS/I O: Last Documented: Result Date Time Pulse Ox 96 12/29 0945 FiO2 72 12/29 0945 O2 Delivery High flow nasal cannula 12/29 0945 O2 Flow Rate 13 12/29 0945 B/P 141/56 12/29 0744 B/P Mean 84.3 12/29 0744 Temp 36.6 12/29 0744 Pulse 101 12/29 0744 Resp 18 12/29 0744 Vital Signs Date Temp Pulse Resp B/P B/P Mean Pulse Ox FiO2 12/28-12/29 36.5-38.8 76-107 14-20 108-141/56-8 84.3-100.1 91-99 50-72 5 24 hour I O ending at 0700: 12/29 0700 12/28 1900 Intake Total 266 Output Total Balance 266 Intake, Fresh 216 Frozen Plasma Intake, IV 50 PATIENT WEIGHT: Weight (lb): 400 Weight (oz): 2.22 Weight (kg): 181.500 Physical Exam General appearance: obese, awake Head/Eyes: atraumatic, clear cornea, EOMI, normal conjunctiva/sclera, normal eyelids/periorb, normocephalic Cardiovascular: regular rate rhythm Respiratory: on oxygen, symmetric expansion Abdomen: non-tender, normal bowel sounds, soft, no CVA tenderness, no distention , no guarding, no mass/organomegaly, no rebound Extremities: normal temperature, no contracture, no cyanosis Musculoskeletal: no joint swelling Skin: normal color, normal turgor, no rash Psychiatry: normal affect, normal judgment/insight, normal mood Diagnosis, Assessment Plan Free Text A P: Labs: WBC normal 12/27 Creatinine slight high 12/27 ALT normal 12/27 Imaging: CTA no PE, there were bilateral infiltrates 12/27 Assessment: 1. Pneumonia with covid-19 s/p CV plasma. 2. Acute respiratory failure with hypoxia. 3. Morbid obesity. Plan: 1. Continue remdesivir (day 3 of 5). 2. Steroids. 3. Monitor inflammatory markers. 4. Low threshold to start antibiotics. at 1433 RPT #: [id number] END OF REPORT [id number] 09:24:00 [facility] ([facility]) Hospitalist Progress Note REPORT#:[id number] REPORT STATUS: Signed DATE:12/29/20 TIME:923 PATIENT: LORI DELUCA UNIT #: [id number] ROOM[facility]BED: [facility] : 69 AGE: 55 SEX: F ATTEND: Alfred Escobedo MD ADM AUTHOR: Ever Rey PMO BUSINESS ANALYST * ALL edits or amendments must be made on the electronic/computer document * Ever Rey 06/14/21 0924: Subjective Chief Complaint: stable. keep taking her oxygen off Patient reports: No: complaints. Nursing reports: No: complaints. Objective General VS/I O: Vital Signs: Date Time Temp Pulse Resp B/P [...] Intake, IV 50 PATIENT WEIGHT: Weight (lb): 400 Weight (oz): 2.22 Weight (kg): 181.500 Physical Exam General appearance: awake Head/Eyes: atraumatic, normocephalic, PERRLA ENT: normal nose, normal pharynx Neck: non-tender, no JVD Cardiovascular: regular rate rhythm, no murmur, no rub, no thrill Respiratory: decreased breath sounds, hypoxia Abdomen: non-tender, normal bowel sounds, soft, no distention, no guarding Extremities: moves all, no edema Neuro/KETTLE SKIMMER: alert, oriented X 3, normal speech, no motor deficits, no sensory deficits Psychiatry: normal affect Results Findings/Data: Laboratory Tests 12/29 12/29 12/29 12/28 1205 1136 0743 2008 Chemistry Sodium (134 - 147 mmol/L) 136 [...] 30 Total Alk Phosphatase (45 - 117 51 Unit/L) Total Protein (6.4 - 8.2 G/DL) 7.2 Albumin (3.4 - 5.0 G/DL) 2.5 L Globulin (GM/dL) 4.7 Albumin/Globulin Ratio (1.2 - 2.2 0.5 L RATIO) 12/28 1627 Chemistry POC Glucose (70 - [...] Diagnosis, Assessment Plan Free Text DxA P Notes Free text DxA P notes: Acute hypoxic respiratory failure with COVID-19 pneumonia We will admit the patient Start the patient on steroids We will hold off on antibiotics as patient is afebrile white count is normal we will try to get CT scan of the chest to see if there are some infiltrates or not. We will get CT of the chest to assess the infiltrates As D-dimer is elevated and troponins are elevated will continue with therapeutic anticoagulation Symptomatic management We will ask infectious disease and pulmonary to evaluate Started the patient on remdesivir Continue supplemental oxygen to keep O2 sat above 90% and monitor respiratory status closely Proning NSTEMI Possibly type II in the setting of COVID-19 pneumonia with hypoxia. We will continue to trend troponins. Keep the patient on aspirin statin. We will get an echocardiogram. Monitor on telemetry. Hypertension Resume lisinopril monitor blood pressure keep on as needed hydralazine Prediabetes Now that the patient will be on steroids we will keep on insulin sliding scale monitor blood sugars keep on diabetic diet COPD Does not appear to be in COPD exacerbation will be on steroids supplemental oxygen. Monitor respiratory status closely. Pulmonary on board. DVT GI prophylaxis Patient is full code Patient was explained the plan in detail all medication effect side effects were discussed all was well associated with the plan Next of kin sister Madelyn ferguson [phone] 12/28/2020 Covid 19 Pneumonia COPD HTN DM Morbid Obesity Plan ----- -Continue on remdesevir -Continue COVID treatment protocol ( steroids, vit c/d/zinc) -Prone positioning as tolerated -Monitor inflammatory markers -Hiflow oxygen prn -Pulm and ID following -Accuchecks with ISS -Diabetic diet -Ensure tight glucose control -Resume home meds for BP control -Dispo-pendng completion of therapy and clinical improvement 12/29/2020 - acute respiratory failure secondary to covid. 13LNC high flow oxygen, wean as tolerated, cont steriod/remdesivir. PUl following - Covid 19 Pneumonia. ID following - COPD, neb tx - HTN; cont home med - DM; SSI - Morbid Obesity; lifestyle modification - Depression. zoloft - Debility. PT to mobilize DVT/PPX - lovenox plan. cont remdesivir/wean oxygen at 1250 at 1524 RPT #: [id number] END OF REPORT [id number] 09:24:00 [facility] Hospitalist Progress Note REPORT#:[id number] REPORT STATUS: Signed DATE:12/29/20 TIME:923 PATIENT: LORI DELUCA UNIT #: [id number] ROOM/BED: [place] [address] : 69 AGE: 55 SEX: F ATTEND: Alfred Escobedo MD ADM AUTHOR: Ever Rey NP * ALL edits or amendments must be made on the electronic/computer document * Subjective Chief Complaint: stable. keep taking her oxygen off Patient reports: No: complaints. Nursing reports: No: complaints. Objective General VS/I O: Vital Signs: Date Time Temp Pulse Resp B/P [...] Intake, IV 50 PATIENT WEIGHT: Weight (lb): 400 Weight (oz): 2.22 Weight (kg): 181.500 Physical Exam General appearance: awake Head/Eyes: atraumatic, normocephalic, PERRLA ENT: normal nose, normal pharynx Neck: non-tender, no JVD Cardiovascular: regular rate rhythm, no murmur, no rub, no thrill Respiratory: decreased breath sounds, hypoxia Abdomen: non-tender, normal bowel sounds, soft, no distention, no guarding Extremities: moves all, no edema Neuro/KETTLE SKIMMER: alert, oriented X 3, normal speech, no motor deficits, no sensory deficits Psychiatry: normal affect Results Findings/Data: Laboratory Tests 12/29 12/29 12/29 12/28 1205 1136 0743 2008 Chemistry Sodium (134 - 147 mmol/L) 136 [...] 30 Total Alk Phosphatase (45 - 117 51 Unit/L) Total Protein (6.4 - 8.2 G/DL) 7.2 Albumin (3.4 - 5.0 G/DL) 2.5 L Globulin (GM/dL) 4.7 Albumin/Globulin Ratio (1.2 - 2.2 0.5 L RATIO) 12/28 1627 Chemistry POC Glucose (70 - [...] Diagnosis, Assessment Plan Free Text DxA P Notes Free text DxA P notes: Acute hypoxic respiratory failure with COVID-19 pneumonia We will admit the patient Start the patient on steroids We will hold off on antibiotics as patient is afebrile white count is normal we will try to get CT scan of the chest to see if there are some infiltrates or not. We will get CT of the chest to assess the infiltrates As D-dimer is elevated and troponins are elevated will continue with therapeutic anticoagulation Symptomatic management We will ask infectious disease and pulmonary to evaluate Started the patient on remdesivir Continue supplemental oxygen to keep O2 sat above 90% and monitor respiratory status closely Proning NSTEMI Possibly type II in the setting of COVID-19 pneumonia with hypoxia. We will continue to trend troponins. Keep the patient on aspirin statin. We will get an echocardiogram. Monitor on telemetry. Hypertension Resume lisinopril monitor blood pressure keep on as needed hydralazine Prediabetes Now that the patient will be on steroids we will keep on insulin sliding scale monitor blood sugars keep on diabetic diet COPD Does not appear to be in COPD exacerbation will be on steroids supplemental oxygen. Monitor respiratory status closely. Pulmonary on board. DVT GI prophylaxis Patient is full code Patient was explained the plan in detail all medication effect side effects were discussed all was well associated with the plan Next of kin sister Madelyn ferguson [phone] 12/28/2020 Covid 19 Pneumonia COPD HTN DM Morbid Obesity Plan ----- -Continue on remdesevir -Continue COVID treatment protocol ( steroids, vit c/d/zinc) -Prone positioning as tolerated -Monitor inflammatory markers -Hiflow oxygen prn -Pulm and ID following -Accuchecks with ISS -Diabetic diet -Ensure tight glucose control -Resume home meds for BP control -Dispo-pendng completion of therapy and clinical improvement 12/29/2020 - acute respiratory failure secondary to covid. 13LNC high flow oxygen, wean as tolerated, cont steriod/remdesivir. PUl following - Covid 19 Pneumonia. ID following - COPD, neb tx - HTN; cont home med - DM; SSI - Morbid Obesity; lifestyle modification - Depression. zoloft - Debility. PT to mobilize DVT/PPX - lovenox plan. cont remdesivir/wean oxygen at 1250 RPT #: [id number] END OF REPORT [id number] 17:41:00 [facility] ([facility]) Pulmonary Consultation Note REPORT#:[id number] REPORT STATUS: Signed DATE:12/28/20 TIME:1741 PATIENT: LORI DELUCA UNIT #: [id number] ROOM/BED: [place] [address] : [birth year] AGE: 55 SEX: F ATTEND: Alfred Escobedo MD ADM AUTHOR: Daniel Tariq MD * ALL edits or amendments must be made on the electronic/computer document * History of Present Illness Free Text HPI Notes Free Text HPI Notes: 55-year-old lady who was transferred from [facility] ER for acute hypoxic respiratory failure with Covid 19. Patient is morbidly obese , sleep apnea Not on CPAP She started having fevers in the past 5 days and feeling weak. She then developed progressive SOB. In the ER she was found to be Covid positive and was hypoxic Pt did not take the Covid vaccine Pt was placed on nonrebreather. CXR showed bilateral infiltrates consistent with COVID Patient is sleepy History - Adult longitudinal Additional medical history: Hypertension Prediabetes COPD Morbid obesity Arthritis Additional surgical history: Asked and is negative Additional family history: Asked and is negative Alcohol use: Denies EtOH use Drug use: Denies recreational drugs Smoking status: Smoking status for patients 13 years old or older: Never Smoker Allergies: Coded Allergies: acetaminophen (Intermediate, HIVES 12/27/20) codeine (Intermediate, ITCHING 12/27/20) morphine (Intermediate, HIVES 12/27/20) tramadol (Intermediate, HIVES 12/27/20) Objective Physical Exam Vitals: Last Documented: Result Date Time Pulse Ox 99 12/28 1516 B/P 108/74 12/28 1516 B/P Mean 85.4 12/28 1516 O2 Delivery High flow nasal cannula 12/28 1516 Temp 36.9 12/28 1516 Pulse 94 12/28 1516 Resp 16 12/28 1516 O2 Flow Rate 13 12/28 1134 FiO2 76 12/28 0728 Head/eyes: atraumatic, normocephalic ENT: ENT: normal nose, normal sinus Abdomen: soft, normal bowel sounds Extremities: edema, no cyanosis, no edema Neuro/KETTLE SKIMMER: alert, oriented X 3, CNII-XII intact Psychiatry: normal affect, normal judgment/insight Results Findings/Data: Laboratory Tests 12/28 1907 Blood Gas Puncture Site [...] Urines Urine HCG, Qual (NEGATIVE) NEGATIVE Radiology Data: Recent Impressions: CAT SCAN - CTA CHEST FOR PE 12/27 1954 Report Impression - Status: SIGNED Entered: 12/27/20202025 IMPRESSION: No pulmonary embolus is identified. Patchy parenchymal opacities throughout both lungs consistent with multifocal pneumonia. LOCATION: B2 This CT exam was performed according to our departmental dose optimization program, which includes automated exposure control, adjustment of the mA and or kV according to patient size and/or use of iterative reconstruction technique. Impression By: Juarez - Janis Rendon M.D. Diagnosis, Assessment Plan Free Text DxA P Notes Free Text DxA P Notes: 1. Acute hypoxic respiratory failure 2. Acute viral pneumonia due to COVID-19 infection 3, sleep apnea Patient was seen and examined at bedside Evaluated lab work-up and imaging studies Start Remdisivir Follow-up imaging studies and inflammatory panel along with oxygen requirement and symptomatic improvement or worsening dexamethasone as per recovery trial 6 mg daily Infectious disease on board Enhanced anticoagulation Thank you for the consult and will follow up with you at 1744 RPT #: [id number] END OF REPORT [id number] 11:51:00 [facility] ([facility]) Hospitalist Progress Note REPORT#:[id number] REPORT STATUS: Signed DATE:12/28/20 TIME:1151 PATIENT: LORI DEULCA UNIT #: [id number] ROOM/BED: [facility] : 67 AGE: 55 SEX: F ATTEND: Alfred Escobedo MD ADM AUTHOR: Pogoson,Madison I BARREL MAKER * ALL edits or amendments must be made on the electronic/computer document * Madison Lange I 12/28/20 1151: Subjective HPI: on non rebreather, appears unable to tolerate much. Takes on /off. Dyspneic with talking Objective General VS/I O: Vital Signs: Date Time Temp Pulse Resp B/P [...] scale Measurement Method PATIENT WEIGHT: Weight (lb): 400 Weight (oz): 2.22 Weight (kg): 181.500 Physical Exam General appearance: obese (morbidly), alert, awake, oriented Head/Eyes: atraumatic, normocephalic, PERRLA ENT: normal nose, normal pharynx Neck: non-tender, no JVD Cardiovascular: regular rate rhythm, no murmur, no rub, no thrill Respiratory: crackles, hypoxia Abdomen: non-tender, normal bowel sounds, soft, no distention, no guarding Extremities: moves all, no edema Neuro/KETTLE SKIMMER: alert, oriented X 3, normal speech, no motor deficits, no sensory deficits Psychiatry: normal affect Results Findings/Data: Laboratory Tests 12/28 1907 Blood Gas Puncture Site [...] - 1.2 INR Unit) 1.30 H PTT (Judi) (26 - 35 SECONDS) 38.1 H >400 [...] (Auto) (20.5 - 51.1 %) 9.1 L [place] % (Auto) (1.7 - 9.3 %) 3.2 Eos % (Auto) (0.0 - 6.0 %) 0.1 Baso % (Auto) (0.0 - 2.0 %) 0.3 Neut # (Auto) (1.8 - 7.6 K/mm3) 8.8 H Lymph # (Auto) (0.6 - 3.2 K/mm3) 0.9 [place] # (Auto) (0.3 - 1.1 K/mm3) 0.3 [...] Urines Urine HCG, Qual (NEGATIVE) NEGATIVE Radiology data: Recent Impressions: CAT SCAN - CTA CHEST FOR PE 12/27 1954 Report Impression - Status: SIGNED Entered: 12/27/20202025 IMPRESSION: No pulmonary embolus is identified. Patchy parenchymal opacities throughout both lungs consistent with multifocal pneumonia. LOCATION: B2 This CT exam was performed according to our departmental dose optimization program, which includes automated exposure control, adjustment of the mA and or kV according to patient size and/or use of iterative reconstruction technique. Impression By: Juarez Rendon M.D. Diagnosis, Assessment Plan Free Text DxA P Notes Free text DxA P notes: Acute hypoxic respiratory failure with COVID-19 pneumonia We will admit the patient Start the patient on steroids We will hold off on antibiotics as patient is afebrile white count is normal we will try to get CT scan of the chest to see if there are some infiltrates or not. We will get CT of the chest to assess the infiltrates As D-dimer is elevated and troponins are elevated will continue with therapeutic anticoagulation Symptomatic management We will ask infectious disease and pulmonary to evaluate Started the patient on remdesivir Continue supplemental oxygen to keep O2 sat above 90% and monitor respiratory status closely Proning NSTEMI Possibly type II in the setting of COVID-19 pneumonia with hypoxia. We will continue to trend troponins. Keep the patient on aspirin statin. We will get an echocardiogram. Monitor on telemetry. Hypertension Resume lisinopril monitor blood pressure keep on as needed hydralazine Prediabetes Now that the patient will be on steroids we will keep on insulin sliding scale monitor blood sugars keep on diabetic diet COPD Does not appear to be in COPD exacerbation will be on steroids supplemental oxygen. Monitor respiratory status closely. Pulmonary on board. DVT GI prophylaxis Patient is full code Patient was explained the plan in detail all medication effect side effects were discussed all was well associated with the plan Next of kin sister Madelyn ferguson [phone] 12/28/2020 Covid 19 Pneumonia COPD HTN DM Morbid Obesity Plan ----- -Continue on remdesevir -Continue COVID treatment protocol ( steroids, vit c/d/zinc) -Prone positioning as tolerated -Monitor inflammatory markers -Hiflow oxygen prn -Pulm and ID following -Accuchecks with ISS -Diabetic diet -Ensure tight glucose control -Resume home meds for BP control -Dispo-pendng completion of therapy and clinical improvement at 1410 at 1524 RPT #: [id number] END OF REPORT [id number] 11:51:00 [facility] Hospitalist Progress Note REPORT#:[id number] REPORT STATUS: Signed DATE:12/28/20 TIME:1151 PATIENT: LORI DELUCA UNIT #: [id number] ROOM/BED: [place] [address] : 67 AGE: 55 SEX: F ATTEND: Alfred Escobedo MD ADM AUTHOR: Madison Lange APRN * ALL edits or amendments must be made on the electronic/computer document * Subjective HPI: on non rebreather, appears unable to tolerate much. Takes on /off. Dyspneic with talking Objective General VS/I O: Vital Signs: Date Time Temp Pulse Resp B/P [...] scale Measurement Method PATIENT WEIGHT: Weight (lb): 400 Weight (oz): 2.22 Weight (kg): 181.500 Physical Exam General appearance: obese (morbidly), alert, awake, oriented Head/Eyes: atraumatic, normocephalic, PERRLA ENT: normal nose, normal pharynx Neck: non-tender, no JVD Cardiovascular: regular rate rhythm, no murmur, no rub, no thrill Respiratory: crackles, hypoxia Abdomen: non-tender, normal bowel sounds, soft, no distention, no guarding Extremities: moves all, no edema Neuro/KETTLE SKIMMER: alert, oriented X 3, normal speech, no motor deficits, no sensory deficits Psychiatry: normal affect Results Findings/Data: Laboratory Tests 12/28 1907 Blood Gas Puncture Site [...] - 1.2 INR Unit) 1.30 H PTT (Lee) (26 - 35 SECONDS) 38.1 H >400 [...] (Auto) (20.5 - 51.1 %) 9.1 L [place] % (Auto) (1.7 - 9.3 %) 3.2 Eos % (Auto) (0.0 - 6.0 %) 0.1 Baso % (Auto) (0.0 - 2.0 %) 0.3 Neut # (Auto) (1.8 - 7.6 K/mm3) 8.8 H Lymph # (Auto) (0.6 - 3.2 K/mm3) 0.9 Pondera # (Auto) (0.3 - 1.1 K/mm3) 0.3 [...] Urines Urine HCG, Qual (NEGATIVE) NEGATIVE Radiology data: Recent Impressions: CAT SCAN - CTA CHEST FOR PE 12/27 1954 Report Impression - Status: SIGNED Entered: 12/27/20202025 IMPRESSION: No pulmonary embolus is identified. Patchy parenchymal opacities throughout both lungs consistent with multifocal pneumonia. LOCATION: B2 This CT exam was performed according to our departmental dose optimization program, which includes automated exposure control, adjustment of the mA and or kV according to patient size and/or use of iterative reconstruction technique. Impression By: Juarez - Janis Rendon M.D. Diagnosis, Assessment Plan Free Text DxA P Notes Free text DxA P notes: Acute hypoxic respiratory failure with COVID-19 pneumonia We will admit the patient Start the patient on steroids We will hold off on antibiotics as patient is afebrile white count is normal we will try to get CT scan of the chest to see if there are some infiltrates or not. We will get CT of the chest to assess the infiltrates As D-dimer is elevated and troponins are elevated will continue with therapeutic anticoagulation Symptomatic management We will ask infectious disease and pulmonary to evaluate Started the patient on remdesivir Continue supplemental oxygen to keep O2 sat above 90% and monitor respiratory status closely Proning NSTEMI Possibly type II in the setting of COVID-19 pneumonia with hypoxia. We will continue to trend troponins. Keep the patient on aspirin statin. We will get an echocardiogram. Monitor on telemetry. Hypertension Resume lisinopril monitor blood pressure keep on as needed hydralazine Prediabetes Now that the patient will be on steroids we will keep on insulin sliding scale monitor blood sugars keep on diabetic diet COPD Does not appear to be in COPD exacerbation will be on steroids supplemental oxygen. Monitor respiratory status closely. Pulmonary on board. DVT GI prophylaxis Patient is full code Patient was explained the plan in detail all medication effect side effects were discussed all was well associated with the plan Next of kin sister Madelyn ferguson [phone] 12/28/2020 Covid 19 Pneumonia COPD HTN DM Morbid Obesity Plan ----- -Continue on remdesevir -Continue COVID treatment protocol ( steroids, vit c/d/zinc) -Prone positioning as tolerated -Monitor inflammatory markers -Hiflow oxygen prn -Pulm and ID following -Accuchecks with ISS -Diabetic diet -Ensure tight glucose control -Resume home meds for BP control -Dispo-pendng completion of therapy and clinical improvement at 1410 RPT #: [id number] END OF REPORT [id number] 11:12:00 [facility] ([facility]) Infect Disease Consult Note REPORT#:[id number] REPORT STATUS: Signed DATE:12/28/20 TIME:1112 PATIENT: LORI DELUCA UNIT #: [id number] ROOM/BED: [place] [address] : 69 AGE: 55 SEX: F ATTEND: Alfred Escobedo MD ADM AUTHOR: Andrew Aguilar MD * ALL edits or amendments must be made on the electronic/computer document * History of Present Illness Reason for consult: Pneumonia HPI: 55-year-old lady who was transferred from [facility] for acute hypoxic respiratory failure with Covid 19. She started having intermittent fevers in the past 5 days and feeling weak. She then developed SOB. In the ER she was found to be Covid positive and was hypoxic with elevated troponi. Pt did not take the Covid vaccine as she did not believe in it. Pt was placed on nonrebreather. CXR showed bilateral infiltrates. History - Adult longitudinal Additional medical history: Hypertension Prediabetes COPD Morbid obesity Arthritis Additional surgical history: Asked and is negative Additional family history: Asked and is negative Alcohol use: Denies EtOH use Drug use: Denies recreational drugs Smoking status: Smoking status for patients 13 years old or older: Never Smoker Allergies: Coded Allergies: acetaminophen (Intermediate, HIVES 12/27/20) codeine (Intermediate, ITCHING 12/27/20) morphine (Intermediate, HIVES 12/27/20) tramadol (Intermediate, HIVES 12/27/20) Review of Systems Constitutional: Reports: fatigue. Skin: Denies: rash. Allergy/Immun: Denies hives Eyes: Denies discharge ENT: Denies: sore throat. Respiratory: Reports: TOURE (dyspnea on exertion). Cardiovascular: Denies: chest pain. GI: Denies: abdominal pain. : Denies: dysuria. Musculoskeletal: Denies: joint swelling. Objective General VS/I O: Last Documented: Result Date Time Pulse Ox 99 12/28 1134 B/P 128/83 12/28 1134 B/P Mean 98.2 12/28 1134 O2 Delivery High flow nasal cannula 12/28 1134 O2 Flow Rate 13 12/28 1134 Temp 36.5 12/28 1134 Pulse 76 12/28 1134 Resp 16 12/28 1134 FiO2 76 12/28 0728 Vital Signs Date Temp Pulse Resp B/P B/P Mean Pulse Ox FiO2 12/27-12/28 36.5-37.2 76-92 16-22 110-136/68-89 84.9-105.0 90-99 30-76 24 hour I O ending at 0700: 12/28 0700 12/27 1900 Intake Total 950.00 Output Total 400 Balance 550.00 Intake, IV 450.00 Intake, Oral 500 Output, Urine 400 Patient 181.5 kg 183.1 kg Weight Weight Bed scale Bed scale Measurement Method PATIENT WEIGHT: Weight (lb): 400 Weight (oz): 2.22 Weight (kg): 181.500 Physical Exam General appearance: obese, alert, awake, oriented Head/Eyes: atraumatic, clear cornea, EOMI, normal conjunctiva/sclera, normal eyelids/periorb, normocephalic ENT: moist mucosal membranes, normal nose, normal pharynx, normal sinus Neck: full range of motion, supple/no meningismus, no masses or swelling Cardiovascular: regular rate rhythm Respiratory: on oxygen, symmetric expansion Abdomen: non-tender, normal bowel sounds, soft, no CVA tenderness, no distention , no guarding, no mass/organomegaly, no rebound Genitourinary: no flank pain Extremities: normal temperature, no contracture, no cyanosis Musculoskeletal: no joint swelling Neuro/KETTLE SKIMMER: alert, oriented X 3, CNII-XII intact, normal speech Skin: normal color, normal turgor, no rash Psychiatry: normal affect, normal judgment/insight, normal mood Diagnosis, Assessment Plan Free Text DxA P Notes Free text DxA P notes: Labs: WBC normal 12/27 Creatinine slight high 12/27 ALT normal 12/27 Imaging: CTA no PE, there were bilateral infiltrates 12/27 Assessment: 1. Pneumonia with covid-19. 2. Acute respiratory failure with hypoxia. 3. Morbid obesity. Plan: 1. Continue remdesivir (day 2). 2. Steroids. 3. Pt initially declined CV plasma but then she changed her mind. CV plasma ordered. 4. Monitor inflammatory markers. 5. Low threshold to start antibiotics. Thank you for this consult. at 1511 RPT #: [id number] END OF REPORT [id number] 00:14:00 [facility] ([facility]) Clinical Note REPORT#:[id number] REPORT STATUS: Signed DATE:12/28/20 TIME:0014 PATIENT: LORI DELUCA UNIT #: [id number] ROOM/BED: [place] [address] : 67 AGE: 55 SEX: F ATTEND: lAfred Escobedo MD ADM AUTHOR: Wiliam Love PMO BUSINESS ANALYST * ALL edits or amendments must be made on the electronic/computer document * Clinical Note Note: Zoya ELIAS caring for pt comes to me requesting for the pt to be on BIPAP or CPAP. I have seen the pt with the nurse [...] a spirite drink. at 0317 RPT #: [id number] END OF REPORT [id number] 00:14:00 [facility]) Clinical Note REPORT#:[id number] REPORT STATUS: Signed DATE:12/28/20 TIME:0014 PATIENT: LORI DELUCA UNIT #: [id number] ROOM/BED: [place] [address] : [birth year] AGE: 55 SEX: F ATTEND: Alfred Escobedo MD ADM AUTHOR: Wiliam Love NP * ALL edits or amendments must be made on the electronic/computer document * Clinical Note Note: Zoya ELIAS caring for pt comes to me requesting for the pt to be on BIPAP or CPAP. I have seen the pt with the nurse [...] drink. at 0317 at 1423 RPT #: [id number] END OF REPORT [id number] 18:30:00 [facility] ([facility]) Hospitalist History Physical REPORT#:[id number] REPORT STATUS: Signed DATE:12/27/20 TIME:1830 PATIENT: LORI DELUCA UNIT #: [id number] [place]/BED: [place] : 69 AGE: 55 SEX: F ATTEND: Alfred Escobedo MD ADM AUTHOR: Alfred Escobedo MD * ALL edits or amendments must be made on the electronic/computer document * History of Present Illness HPI Chief complaint: Shortness of breath for 3 days PCP: PCP: No Primary or Family Physician HPI: This is 55-year-old lady who was transferred from [facility] ER for acute hypoxic respiratory failure with Covid 19 infection. Patient stated that she started having some fevers in the past 5 days and feeling weak and in the past 3 days she started having shortness of breath and the symptoms kept getting worse so she decided to come to the ER. In the ER she was found to be Covid positive and was hypoxic with elevated troponin and D- dimer. Patient denies any headache sore throat complains of occasional cough denies any chest pain palpitations abdominal pain diarrhea constipation any problem in the urine or any focal weakness Patient is not sure how she got the Covid infection she lives by herself but is not compliant with the masks. She did not take the Covid vaccine as she did not believe in it. At the time of my evaluation patient was on 6 L of supplemental oxygen via nasal cannula O2 sats and 92 to 93% Clinical data from the ER ABG shows pH 7.36 PCO2 55 PO2 100, O2 sat 97% on nonrebreather Sodium 136 potassium 4 chloride 97 bicarb 30 glucose 114 BUN 22 creatinine 1.1 total bilirubin 1.2 alkaline phosphatase 65 AST is 56 ALT 33 albumin 2.8 High-sensitivity troponin I 45 WBC 8.5 hemoglobin 14.6 hematocrit 44.3 platelet 178 D-dimer 882 Covid antigen test positive Chest x-ray multifocal pneumonia History Past Medical Surgical Hx Additional medical history: Hypertension Prediabetes COPD Morbid obesity Arthritis Additional surgical history: Asked and is negative Family History Additional family history: Asked and is negative Social History Alcohol use: Denies EtOH use Drug use: Denies recreational drugs Smoking status: Smoking status for patients 13 years old or older: Never Smoker Medication/Allergy-Vaccine Hx Medications: Home medication include Zoloft Zestril and Flexeril Allergies: Coded Allergies: acetaminophen (Intermediate, HIVES 12/27/20) codeine (Intermediate, ITCHING 12/27/20) morphine (Intermediate, HIVES 12/27/20) tramadol (Intermediate, HIVES 12/27/20) Review of Systems All systems rev neg: except as noted Physical Exam VS/I O: Vital Signs Date Temp Pulse Resp B/P B/P Mean Pulse Ox FiO2 12/27 36.9 85 22 127/72 90 95 Last Documented: Result Date Time Pulse Ox 95 12/27 1726 B/P 127/72 12/27 1726 B/P Mean 90 12/27 1726 O2 Delivery Nasal cannula 12/27 172 O2 Flow Rate 5 12/27 1726 Temp 36.9 12/27 1726 Pulse 85 12/27 1726 Resp 22 12/27 1726 Patient Weight and BMI Weight (kg): 183.100 BMI: 76.3 General appearance: lethargic, obese (morbidly obese), alert, awake, oriented Head/Eyes: atraumatic, normocephalic, PERRLA ENT: normal nose, normal pharynx Neck: non-tender, no JVD Cardiovascular: regular rate rhythm, no murmur, no rub, no thrill Respiratory: crackles, hypoxia Abdomen: non-tender, normal bowel sounds, soft, no distention, no guarding Extremities: moves all, no edema Neuro/KETTLE SKIMMER: alert, oriented X 3, normal speech, no motor deficits, no sensory deficits Psychiatry: normal affect Results Findings/Data: Laboratory Tests: 12/27 12/27 1742 1742 Chemistry Sodium [...] (Auto) (20.5 - 51.1 %) 9.1 L [place] % (Auto) (1.7 - 9.3 %) 3.2 Eos % (Auto) (0.0 - 6.0 %) 0.1 Baso % (Auto) (0.0 - 2.0 %) 0.3 Neut # (Auto) (1.8 - 7.6 K/mm3) 8.8 H Lymph # (Auto) (0.6 - 3.2 K/mm3) 0.9 P[place] # (Auto) (0.3 - 1.1 K/mm3) 0.3 Eos # (Auto) (0.0 - 0.4 K/mm3) 0.0 Baso # (Auto) (0.0 - 0.1 K/mm3) 0.0 Abs Immat Gran (auto) (0.00 - 0.03 x10 3/uL) 0.17 H Add Manual Diff (CRITERIA DIFF/SCN) NO Immature Gran % (0.0 - 5.0 %) 1.7 Nucleated RBC % (0.0 - 1.0 /100WBC%) 0.3 Laboratory Tests 12/27/20 1742: [Embedded Image Not Available] Results: labs reviewed, current med profile rev'd Diagnosis, Assessment Plan Free Text A P: Acute hypoxic respiratory failure with COVID-19 pneumonia We will admit the patient Start the patient on steroids We will hold off on antibiotics as patient is afebrile white count is normal we will try to get CT scan of the chest to see if there are some infiltrates or not. We will get CT of the chest to assess the infiltrates As D-dimer is elevated and troponins are elevated will continue with therapeutic anticoagulation Symptomatic management We will ask infectious disease and pulmonary to evaluate Started the patient on remdesivir Continue supplemental oxygen to keep O2 sat above 90% and monitor respiratory status closely Proning NSTEMI Possibly type II in the setting of COVID-19 pneumonia with hypoxia. We will continue to trend troponins. Keep the patient on aspirin statin. We will get an echocardiogram. Monitor on telemetry. Hypertension Resume lisinopril monitor blood pressure keep on as needed hydralazine Prediabetes Now that the patient will be on steroids we will keep on insulin sliding scale monitor blood sugars keep on diabetic diet COPD Does not appear to be in COPD exacerbation will be on steroids supplemental oxygen. Monitor respiratory status closely. Pulmonary on board. DVT GI prophylaxis Patient is full code Patient was explained the plan in detail all medication effect side effects were discussed all was well associated with the plan Next of kin sister Madelyn ferguson [phone] at 1844 RPT #: [id number] END OF REPORT [id number] 17:28:00 [facility] ([facility]) EMERGENCY PROVIDER REPORT REPORT#:[id number] REPORT STATUS: Signed DATE:12/27/20 TIME:1728 PATIENT: LORI DELUCA UNIT #: [id number] ROOM/BED: [place] [address] : [birth year] AGE: 55 SEX: F PCP PHYS: No Primary or Family Physician SERVICE AUTHOR: Nancie Brandon MD * ALL edits or amendments must be made on the electronic/computer document * HPI-Dyspnea/Wheezing Free Text HPI Notes Free Text HPI Notes 55yo WF with PMH of COPD, HTN, and morbid obesity transferred from [facility] with COVID pneumonia. Presented to OSH with progressively worsening shortness of breath and fever x 3 days. 78% on RA with EMS; 96% on 15L NRB. Of note, patient was not unable to fit in CT scan at [facility] despite positive D-dimer due to morbid obesity. Significant Labs: CBC: wnl CMP: wnl Misc: AB.36/55/100/30 0.2/3.30/97% Troponin: 145.9 D-dimer: 882.7 Rapid Covid: Positive Imaging: CXR Impression: Multifocal pneumonia possibly viral in etiology EKG: Time: 1439 Rate: 92 Normal sinus rhythm, normal axis, no ST elevation; normal EKG Meds Given: Albuterol x 3 Atrovent x 1 Magnesium sulfate 2 g x 1 Solu-Medrol 125 mg (given by EMS prehospital) Dexamethasone 8 mg (given in the ER) ASA 324 mg Heparin 5000 unit bolus plus titratable infusion General Initial Greet Date/Time 12/27/20 172 Presentation Chief Complaint Shortness of breath )( Sudden in Onset? No Review of Systems ROS Statements All systems rev neg except as marked. Free Text ROS Notes Free Text ROS Notes CONSTITUTIONAL: No fever, fatigue or weight loss. SKIN: No rash. HENT: No congestion, ear pain, or sore throat. EYES: No recent vision problems or eye pain. ENDOCRINE: No thyroid problems. No polyuria or polydipsia. CARDIOVASCULAR: No chest pain or edema. RESPIRATORY: No cough, shortness of breath, congestion, or wheezing. GASTROINTESTINAL: No abdominal pain, nausea, vomiting, bloody stools or diarrhea. GENITOURINARY: No dysuria. MUSCULOSKELETAL: No joint pain or swelling. LYMPHATIC: No swollen glands. NEUROLOGIC: No seizures. No headache, focal weakness or sensory changes. HEMATOLOGIC: No unusual bruising or bleeding. PSYCHIATRIC: No depression or anxiety. Past Medical History - Adult Stated Complaint SHORTNESS OF BREATH, COVID + Allergies Coded Allergies: acetaminophen (Intermediate, HIVES 12/27/20) codeine (Intermediate, ITCHING 12/27/20) morphine (Intermediate, HIVES 12/27/20) tramadol (Intermediate, HIVES 12/27/20) Home Medications Reported Medications SERTRALINE (ZOLOFT) 50 MG PO DAILY LISINOPRIL (ZESTRIL) 20 MG PO DAILY Physical Exam Vital Signs Vital Signs First Documented: Result Date Time Pulse Ox 95 12/27 1726 B/P 127/72 12/27 1726 B/P Mean 90 12/27 1726 O2 Delivery Nasal cannula 12/27 1725 O2 Flow Rate 5 12/27 1725 Temp 98.5 12/27 1725 Pulse 85 12/27 172 Resp 22 12/27 1725 Last Documented: Result Date Time Pulse Ox 95 12/27 1725 B/P 127/72 12/27 1725 B/P Mean 90 12/27 1725 O2 Delivery Nasal cannula 12/27 1725 O2 Flow Rate 5 12/27 1725 Temp 98.5 12/27 1725 Pulse 85 12/27 172 Resp 12/27 Review of Vital Signs Reviewed, Vital signs normal Focused PE General/Const General/Const Awake, Alert Ears/Nose/Throat Ears/Nose/Throat Airway patent, Mucous membranes moist, Pharynx NL MS Neck Neck Atraumatic, Supple, No meningismus, Full range of motion, No swelling, Non-tender, No masses Resp/Chest Respiratory/Chest Breath sounds NL, Breath sounds = bilat, No respiratory distress, No rales, No rhonchi, No wheezing, No retractions, No stridor Cardiovascular Cardiovascular Heart rate NL, Regular rhythm, Heart sounds NL, Peripheral circulation NL Abdomen/GI Abdomen/GI Soft, Non-tender, No guarding, No rebound MS Back Back Inspection NL, Non-tender, No CVA tenderness MS Lower Extrem Lower Ext/Pelvis/MS Inspection NL, No swelling, Non-tender, No erythema, No deformity, Neurologic intact, No edema Skin Skin Color NL, No rash, Warm, Dry, Turgor NL Neurologic Neurologic Oriented X3, Speech NL, No motor deficits, No sensory deficits Interpretation Diagnostics Lab Results Interpretation Results Laboratory Tests 12/27/201741: [Embedded Image Not Available] Laboratory Tests: 12/27 174 Chemistry Sodium (134 - [...] (Auto) (20.5 - 51.1 %) 9.1 L [place] % (Auto) (1.7 - 9.3 %) 3.2 Eos % (Auto) (0.0 - 6.0 %) 0.1 Baso % (Auto) (0.0 - 2.0 %) 0.3 Neut # (Auto) (1.8 - 7.6 K/mm3) 8.8 H Lymph # (Auto) (0.6 - 3.2 K/mm3) 0.9 [place] # (Auto) (0.3 - 1.1 K/mm3) 0.3 [...] Blood Culture - ORD BLOOD ECG #1 Interpretation Text/Dict Note Time: 1744 Rate: 84 Normal sinus rhythm, normal axis, no ST elevation; normal EKG Re-Evaluation MDM Free Text MDM Notes Free Text MDM Notes A/P: 55yo AAF with PMH as above transferred from [facility] for COVID Pneumonia. Case d/w Dr. Escobedo (hospitalist); admission accepted. Orders to be placed by admitting team. Goals of care and advance directives were discussed in ED with patient/family and hospitalist was updated upon admission. Pt currently FULL CODE. )( Re-Evaluation/Progress #1 )( Re-Eval Status Improved Plan Post Re-Eval Plan admit ED Course Medication(s) Ordered Medication(s) Ordered: Anti-Infective Agents Sig/[place] Start time Last Medication Dose [...] ASDIR 12/27 1800 PEND Dextrose IV 01/10 175 Patient Discharge Departure Vital Signs/Condition Vital Signs First Documented: Result Date Time Pulse Ox 95 / 1726 B/P 127/72 /12 1726 B/P Mean 90 /12 1726 O2 Delivery Nasal cannula 12/27 1726 O2 Flow Rate 5 12/27 1726 Temp 98.5 12 1726 Pulse 85 /12 1726 Resp 22 12 1726 Last Documented: Result Date Time Pulse Ox 95 12 1726 B/P 127/72 /12 1726 B/P Mean 90 12 1726 O2 Delivery Nasal cannula 12/27 1726 O2 Flow Rate 5 12/27 1726 Temp 98.5 12 1726 Pulse 85 /12 1726 Resp 22 /12 1726 All vital signs available at the time of this entry have been reviewed. Clinical Impression Clinical Impression Primary Impression: Pneumonia due to COVID-19 virus Disposition Decision Admit Admit Physician Name Alfred Escobedo MD Admit Physician Hospitalist Request Time 1756 Request Date 12/27/20 )( Admission Accepts Yes )( Accepted Time 1756 )( Accepted Date 12/27/20 Call Information will see patient Discharge/Care Plan Counseled Regarding Diagnosis, Lab results, Imaging studies, Need for admission Admit Note I have spoken with the patient and/or caregivers. I have explained the patient's condition, diagnoses and treatment plan based on the information available to me at this time. I have answered the patient's and/or caregiver's questions and addressed any concerns. The patient and/or caregivers have as good an understanding of the patient's diagnosis, condition and treatment plan as can be expected at this point. The patient has been stabilized within the capability of the emergency department. The patient will be transported for further care and management or will be moved to an observation or inpatient service. I have communicated with the staff or medical practitioner taking over this patient's care. Quality Measures 12-Lead ECG for CP Performed documented at [address] [facility] #: [id number] [facility]
== END 2024-03-05 14:20 | disposition home or self-care (01) ==
LOC: ER 13:36
DX: L03.316 Cellulitis of umbilicus (principal)
CPT/HCPCS: 87070; 87205; 99284; Q0162

== ENCOUNTER 2024-05-16 14:13 | Emergency (ER) | payer OTHER ==
--- OUTSIDE RECORDS SUMMARY | 2024-05-16 14:20 | XMS REPORT | Continuity of Care Document ---
Author Name Unknown Address [address] [facility] [address] [place] [address] [facility] thconnect Address [address] [facility] [address] [place] [address] Care Team Providers Care Telephone Sales Agent Name Role Phone PCP, PATIENT DOES NOT [...] Number Effective Date Expirati on Date Source [employer] [place] PL[place] CLASSIC [place] PREMIUM HMO [id number] 2023 00:00:00 MEDICAID SSI PENDING PENDING 2021 00:00:00 Problems Condition Name Condition Details Condition Category Status Onset Date Resolution Date Last Treatment Date Treating Clinician Comments Source Other general counseling and advice for contracept alvaro management Other general counseling and advice for contracept alvaro management Disease Active 2015-07 00:00: 00 [facility] [place] Knee pain, bilateral Knee pain, bilateral Disease Active 2015-07 00:00: 00 [facility] BV (bacterial vaginosis) BV (bacterial vaginosis) Disease Active 2015-07 017 00:00: 00 [facility] Yeast infection of the skin Yeast infection of the skin Disease Active 2015-07 017 00:00: 00 [facility] Chest pain Chest pain Disease Active 8-30 00:00: 00 [facility] Essential hypertensi on Essential hypertensi on Disease Active 12-28 00:00: 00 Overview: Formattin g of this note might be different from the original. ICD10 Diagnosis Term [employer] Caregiver Utility [facility] Obstructiv e sleep apnea Obstructiv e sleep apnea Disease Active 12-28 00:00: 00 Overview: Formattin g of this note might be different from the original. ICD10 Diagnosis Term After [employer] Caregiver Utility [facility] Irregular menstrual cycle Irregular menstrual cycle Disease Active 12-28 00:00: 00 [facility] Morbid obesity Morbid obesity Disease Active 5- 00:00: 00 [facility] Allergies, Adverse Reactions, Alerts Allergy Name Allergy [...] DRUG INGREDI Active Hallucinates 3-27 00:00: 00 [facility] Morphine Propensi ty to adverse reaction s Active Hallucinatio ns 3-27 00:00: 00 [facility] Benadryl - Injectio n Propensi ty to adverse reaction to drug Active 3-03 00:00: 00 Jordi Bullock diphenhy dramine DA Active U HALLUCINATIO NS 0 14 00:00: 00 [facility] [place] diphenhy dramine DA Active U 0 14 00:00: 00 [facility] [place] [place] [facility] codeine DA Active MO ITCHING 0 12 00:00: 00 [facility] acetamin ophen DA Active MO HIVES 0 12-27 00:00: 00 [facility] tramadol DA Active MO HIVES 0 12-27 00:00: 00 [facility] morphine DA Active MO 0 12-27 00:00: 00 [facility] codeine DA Active MO 0 12-27 00:00: 00 [facility] acetamin ophen DA Active MO 0 12-27 00:00: 00 [facility] tramadol DA Active MO 0 12-27 00:00: 00 [facility] morphine DA Active MO HIVES 0 12-27 00:00: 00 [facility] Acetamin ophen Propensi ty to adverse reaction s Active Itching 12-18 00:00: 00 [facility] Tramadol Propensi ty to adverse reaction s Active Nausea and/or Vomiting 12-18 00:00: 00 [facility] ACETAMIN OPHEN DRUG INGREDI Active ITCHING 12-18 00:00: 00 [facility] TRAMADOL DRUG INGREDI Active N/V 12-18 00:00: 00 [facility] Diphenhy dramine Hcl Propensi ty to adverse reaction s Active Hallucinatio ns 11-16 00:00: 00 [facility] DIPHENHY DRAMINE HCL DRUG INGREDI Active Hallucinates 11-16 00:00: 00 [facility] Codeine Propensi ty to adverse reaction s Active Unknown - See comments 03-15 00:00: 00 [facility] CODEINE DRUG INGREDI Active Unknown-Cmnt 03-15 00:00: 00 [facility] Social History Social Habit Start Date Stop Date Quantity Comments Source Exposure to SARS-CoV-2 (event) Not sure [facility] Alcohol intake 2021-10-11 00:00:00 2021-10-11 00:00:00 0 /d [facility] Tobacco use and exposure 2012-11-16 00:00:00 2012-11-16 00:00:[address] [facility] Sex Assigned At 1965 00:00:00 1965 00:00:00 [facility] Smoking Status Start Date Stop Date Source Never smoker [facility] Medications Ordered Medication Name Filled Medication Name Start Date Stop Date Current Medication? Ordering Clinician Indication Dosage Frequency Signature (SIG) Comments Components Source mupirocin 2 % topical ointment 03-23 00:00: 00 Yes 1% Jordi Bullock duloxetine 30 mg capsule,del ayed release - 00:00: 00 Yes 1mg Jordi Bullock mupirocin 2 % topical ointment - 00:00: 00 Yes 1% Jordi Bullock Bactrim DS 800 mg-160 mg tablet 0 8-19 00:00: 00 Yes 1mg Jordi Bullock clindamycin HCl 300 mg capsule 0 8-19 00:00: 00 Yes 1mg Jordi Bullock ibuprofen 800 mg tablet 0 7-13 00:00: 00 Yes 1mg Jordi Bullock cyclobenzap rine 10 mg tablet 2023-0 6-04 00:00: 00 Yes 1mg Jordi Bullock meloxicam 15 mg tablet 0 6-04 00:00: 00 Yes 1mg Jordi Bullock cyclobenzap rine 10 mg tablet 2023-0 5-08 00:00: 00 Yes 1mg Jordi Bullock meloxicam 15 mg tablet 2023-0 5-08 00:00: 00 Yes 1mg Jordi Bullock lisinopril 20 mg tablet 2023-0 5-08 00:00: 00 Yes 1mg Jordi Bullock solifenacin 10 mg tablet 2023-0 5-08 00:00: 00 Yes 1mg Jordi Bullock lisinopril 20 mg tablet 4 00:00: 00 Yes 1mg Jordi Bullock LISINOPRIL 20 MG 09-14 00:00: 00 Yes Jordi Bullock TAKE 1 TABLET BY MOUTH DAILY 2022-07 2- 00:00: 00 Yes 10 Jordi Bullock LISINOPRIL 5 MG 2022-07 2 00:00: 00 Yes Jordi Bullock TAKE 1 TABLET BY MOUTH DAILY 2022-07 2 00:00: 00 11-28 00:00 :00 No 20 Jordijono Bullock SULFAMETHOX AZOLE-TMP DS 2022-07 00:00: 00 Yes Jordi Bullock APPLY SPARINGLY TO AFFECTED AREA(S) TWICE DAILY 2022-07 00:00: 00 11-28 00:00 :00 No 2 Jordi Bullock TAKE 1 TABLET TWICE DAILY WITH FOOD. 2022-07 00:00: 00 11-28 00:00 :00 No [id number] Jordi Bullock TAKE 1 TABLET BY MOUTH DAILY 2022-07 00:00: 00 11-28 00:00 :00 No 20 Jordijono Bullock TAKE 1 TABLET BY MOUTH DAILY 2022-07 00:00: 00 11-28 00:00 :00 No 10 Jordijono Bullock TAKE 1 TABLET BY MOUTH DAILY 04-15 00:00: 00 11-28 00:00 :00 No 20 Jordi Bullock TAKE 1 TABLET BY MOUTH DAILY 04-14 00:00: 00 11-28 00:00 :00 No 10 Jordijono Bullock LISINOPRIL 20 MG 03-15 00:00: 00 11-28 00:00 :00 No Jordi Aroldo Bullock TAKE 1 TABLET BY MOUTH DAILY 02-11 00:00: 00 11-28 00:00 :00 No 10 Jordi Aroldo Bullock TAKE 1 TABLET BY MOUTH DAILY 01-12 00:00: 00 11-28 00:00 :00 No 10 Jordi Bullock TAKE 1 TABLET EVERY 8 HOURS NEEDED FOR PAIN. 12-22 00:00: 00 11-28 00:00 :00 No 10 Jordi Bullock TAKE 1 TABLET BY MOUTH DAILY - 00:00: 00 11-28 00:00 :00 No 10 Jordi Bullock TAKE 1 TABLET BY MOUTH DAILY 12-09 00:00: 00 11-28 00:00 :00 No 20 Jordi Bullock INHALE 2 PUFFS TWICE DAILY. RINSE MOUTH AFTER USE. 11-01 00:00: 00 11-28 00:00 :00 No [id number] Jordi Bullock TAKE 1 TABLET BY MOUTH DAILY 11-01 00:00: 00 11-28 00:00 :00 No 10 Jordi Bullock USE 2 SPRAYS IN EACH NOSTRIL ONCE DAILY 11-01 00:00: 00 11-28 00:00 :00 No 50 [...] Unknown 8-12 00:00: 00 Yes Jordi Bullock Myrbetriq 25 mg tablet,exte nded release 6-14 00:00: 00 Yes 1mg Jordi Bullock lisinopril 20 mg tablet 6-14 00:00: 00 Yes 1mg Jordi Bullock sertraline 25 mg tablet 6-14 00:00: 00 Yes 1mg Jordi Bullock amitriptyli ne 50 mg tablet 3-30 00:00: 00 Yes 1mg Jordi Bullock Dose Unknown 3-30 00:00: 00 Yes Jordi Bullock Dose Unknown 3-30 00:00: 00 Yes Jordi Bullock Dose Unknown 10-14 00:00: 00 Yes 50 Jordi Bullock TAKE ONE (1) CAPSULE(S) BY MOUTH THREE TIMES A DAY UNTIL ALL ARE TAKEN. TAKE WITH FOOD AND DRINK PLENTY OF WATER. 10-14 00:00: 00 Yes Jordi Bullock Dose Unknown 10-14 00:00: 00 Yes 15 Jordi Bullock TAKE ONE (1) TABLET(S) BY MOUTH EVERY EIGHT HOURS NEEDED FOR PAIN TAKE WITH FOOD AND DRINK PLENTY OF WATER. 10-14 00:00: 00 Yes Jordi Bullock ketorolac (TORADOL) injection 30 mg 10-12 05:45: 00 10-12 04:44 :00 No 30mg 30 mg, Slow IV Push, ONCE, 1 dose, On Tue10/12/21 at 0045, ALEXIS [facility] aspirin tablet 325 mg 10-12 04:30: 00 10-12 03:46 :00 No 325mg 325 mg, Oral, ONCE, 1 dose, On Tue10/11/21 at 2330[facility] 2 % mucosal solution 09-25 [...] 09-17 00:00: 00 Yes 10mg/5 mL Jordi F Kobe Dose Unknown 2022-0 3-03 00:00: 00 Yes Jordi F Kobe Dose Unknown 2-0 3-03 00:00: 00 Yes Jordi F Kobe Dose Unknown 2-0 3-03 00:00: 00 Yes Jordi F Kobe Dose Unknown 2-0 3-03 00:00: 00 Yes Jordi F Kobe Dose Unknown 2-0 3-03 00:00: 00 Yes Jordi F Kobe Dose Unknown 2-0 3-03 00:00: 00 Yes Jordi F Kobe Dose Unknown 2-0 3-03 00:00: 00 Yes Jordi F Kobe Dose Unknown 2022-0 3-03 00:00: 00 Yes Jordi F Kobe Dose Unknown 2-0 1-25 00:00: 00 Yes Jordi F Kobe Dose Unknown 2-0 1-25 00:00: 00 Yes Jordi F Kobe Dose Unknown 2-0 1-25 00:00: 00 Yes Jordi F Kobe Dose Unknown 2020-1 0-18 00:00: 00 Yes Jordi Bullock amitriptyli ne 50 mg tablet 2020-0 9-20 00:00: 00 Yes 1mg Jordi Bullock Dose Unknown 2020-0 9-20 00:00: 00 Yes Jordi F Kobe Dose Unknown 2020-0 9-20 00:00: 00 Yes Jordi F Kobe Dose Unknown 2020-0 7-19 00:00: 00 Yes Jordi Bullock Dose Unknown 1-0 7-19 00:00: 00 Yes Jordi Bullock lisinopril 20 mg tablet 1-0 7-19 00:00: 00 Yes 1mg Jordi F Kobe Dose Unknown 1-0 7-19 00:00: 00 Yes Jordi F Kobe Dose Unknown 1-0 7-19 00:00: 00 Yes Jordi F Kobe Dose Unknown 1-0 4-23 00:00: 00 Yes Jordi Bullock sertraline 50 mg tablet 1-0 4-10 00:00: 00 Yes 1mg Jordi F Kobe Dose Unknown 1-0 4-02 00:00: 00 Yes Jordi F Kobe Dose Unknown 1-0 4-02 00:00: 00 Yes Jordi F Kobe Dose Unknown 1-0 3-30 00:00: 00 Yes Jordi Bullock sertraline 50 mg tablet 2021-0 3- 00:00: 00 Yes 1mg Jordi Bullock sertraline 50 mg tablet 2-24 00:00: 00 Yes 1mg Jordi Bullock Dose Unknown 1- 00:00: 00 Yes Jordi Bullock sertraline 50 mg tablet 1- 00:00: 00 Yes 1mg Jordi Bullock Dose Unknown 2019-07 2- 00:00: 00 Yes Jordi Bullock ProAir HFA 90 mcg/actuati on aerosol inhaler 2019-07- 00:00: 00 Yes 12mcg/a ctuatio n Jordi Bullock Dose Unknown 2019-07- 00:00: 00 Yes Jordi Bullock Singulair 10 mg tablet 2019-07 2- 00:00: 00 Yes 1mg Jordi Bullock lisinopril 20 mg tablet 2019-07 2- 00:00: 00 Yes 1mg Jordi Bullock etodolac 400 mg tablet 2019-07 2- 00:00: 00 Yes 1mg Jordi Bullock gabapentin 100 mg capsule 2019-07 2-08 00:00: 00 Yes 1mg Jordi Bullock Flagyl 500 mg tablet 8-05 00:00: 00 Yes 1mg Jordi Bullock fluconazole 150 mg tablet 6-24 00:00: 00 Yes mg Jordi Bullock clindamycin HCl 300 mg capsule 0 6-24 00:00: 00 Yes 1mg Jordi Bullock Mobic 7.5 mg tablet 5-14 00:00: 00 Yes 1mg Jordi Bullock cyclobenzap rine 5 mg tablet 0 5-14 00:00: 00 Yes 1mg Jordi Bullock mupirocin 2 % topical ointment 0 1-16 00:00: 00 Yes 1% Jordi Bullock lisinopril 20 mg tablet 1-16 00:00: 00 Yes 1mg Jordi Bullock clindamycin HCl 300 mg capsule 0 1-16 00:00: 00 Yes 1mg Jordi Bullock benzonatate 200 mg capsule 2017-07 2-18 00:00: 00 Yes 1mg Jordi Bullock Mobic 7.5 mg tablet 2017-07 0-02 00:00: 00 Yes 1mg Jordi Bullock sertraline 50 mg tablet 2017-07 00:00: 00 Yes 1mg Jordi Bullock Mobic 7.5 mg tablet 2017-07 00:00: 00 Yes 1mg Jordi Bullock cyclobenzap rine 5 mg tablet 2017-07 00:00: 00 Yes 1mg Jordi Bullock cyclobenzap rine 5 mg tablet 2017-07 00:00: 00 Yes 1mg Jordi Bullock sertraline 50 mg tablet 01-30 00:00: 00 Yes 1mg Jordi Bullock lisinopril 20 mg tablet 01-26 00:00: 00 Yes 1mg Jordi Bullock amoxicillin [...] % topical cream 2015-07 00:00: 00 Yes [id number] Apply to area(s) at bedtime. [facility] metroNIDAZO LE (FLAGYL) 500 mg tablet 2015-07 00:00: 00 Yes [id number] 500mg Take 1 tablet by mouth 2 (two) times daily. [facility] aspirin 81 mg chewable tablet 03-18 00:00: 00 Yes 81mg Take 1 tablet by mouth daily. [facility] metoprolol tartrate (LOPRESSOR) 25 mg tablet 03-18 00:00: 00 Yes 12.5mg Take 0.5 tablets by mouth 2 (two) times daily. [facility] ibuprofen (ADVIL) 200 mg tablet 03-18 00:00: 00 Yes 200mg Take 1 tablet by mouth every 6 (six) hours as needed for Pain (scale 1-3). [facility] nystatin (PEDI-DRI) 100,000 unit/gram powder 03-18 00:00: 00 Yes Apply to area(s) 2 (two) times daily. [facility] Immunizations Ordered Immunization Name Filled Immunization Name Date Status Comments Source Influenza, seasonal, inj Influenza, seasonal, inj 2018-05-05 00:00:00 Completed Jordi Bullock Td 2009-03-15 00:00:[address] [facility] Vital Signs Vital Name Observation Time Observation Value Comments S izabel Systolic blood pressure 2021-10-12 07:05:00 113 mm[Hg] [facility] Diastolic blood pressure 2021-10-12 07:05:00 70 mm[Hg] [facility] Heart rate 2021-10-12 07:05:00 80 /min Jeison [facility] Respiratory rate 2021-10-12 07:05:00 22 /min [facility] Oxygen saturation in Arterial blood by Pulse oximetry 2021-10-12 07:05:00 97 /min [facility] Body temperature 2021-10-12 03:29:[address] [facility] Body height 2021-10-12 03:29:00 154.9 cm [facility] Body weight 2021-10-12 03:29:00 171.46 kg [facility] BMI 2021-10-12 03:29:00 71.42 kg/m2 [facility] BP Systolic 2024-04-06 14:22:00 104 mm[Hg] Step hen F Kobe BP Diastolic 2024-04-06 14:22:00 72 mm[Hg] Jesus phen F Kobe Weight Measured 2024-04-06 14:22:00 Jordi F Kobe Height Measured 2024-04-06 14:22:00 Jordi F Kobe Body Temperature 2024-04-06 14:22:00 98.20 degrees Jordi F Kobe Heart Rate 2024-04-06 14:22:00 82.00 /min Radha en F Kobe Respiratory Rate 2024-04-06 14:22:00 18.00 /min Jordi F Kobe BP Systolic 2024-03-23 10:04:00 121 mm[Hg] Step hen F Kobe BP Diastolic 2024-03-23 10:04:00 76 mm[Hg] Jesus phen F Kobe Weight Measured 2024-03-23 10:04:00 422.40 pounds Jordi Aroldo Bullock Height Measured 2024-03-23 10:04:00 62.00 inches Jordi F Kobe Body Temperature 2024-03-23 10:04:00 97.50 degrees Jordi F Kobe Heart Rate 2024-03-23 10:04:00 106.00 /min Step hen F Kobe Respiratory Rate 2024-03-23 10:04:00 15.00 /min Jordi F Kobe BP Systolic 2024-03-05 09:00:00 108 mm[Hg] Step hen F Kobe BP Diastolic 2024-03-05 09:00:00 70 mm[Hg] Jesus phen F Kobe Weight Measured 2024-03-05 09:00:00 Jordi F Kobe Height Measured 2024-03-05 09:00:00 Jordi F Kobe Body Temperature 2024-03-05 09:00:00 97.60 degrees Jordi F Kobe Heart Rate 2024-03-05 09:00:00 84.00 /min Radha en F Kobe Respiratory Rate 2024-03-05 09:00:00 17.00 /min Jordi F Kobe BP Systolic 2023-12-20 09:19:00 94 mm[Hg] Step hen F Kobe BP Diastolic 2023-12-20 09:19:00 79 mm[Hg] Jesus phen F Kobe Weight Measured 2023-12-20 09:19:00 423.40 pounds Jodri F Kobe Height Measured 2023-12-20 09:19:00 62.00 inches Jordi [...] F Kobe Respiratory Rate 2021-09-21 11:38:00 Jordi Bullock BP Systolic 2021-09-17 14:06:00 Marty Bullock BP Diastolic 2021-09-17 14:06:00 Jesus Bullock Weight Measured 2021-09-17 14:06:00 375.00 pounds Jordi Bullock Height Measured 2021-09-17 14:06:00 62.00 inches Jordi Bullock Body Temperature 2021-09-17 14:06:00 Jordi Bullock Heart Rate 2021-09-17 14:06:00 Radha Bullock Respiratory Rate 2021-09-17 14:06:00 Jordi Bullock Procedures Procedure Date / Time Performed Performing Clinician Source EKG-12 LEAD 2021-10-12 07:00:52 Nickolas Sandoval [facility] TROPONIN I 2021-10-12 06:23:00 Nickolas Sandoval [facility] URINALYSIS 2021-10-12 03:52:00 Nickolas Sandoval [facility] TROPONIN I 2021-10-12 03:45[facility] METABOLIC PANEL (55663) 2021-10-12 03:45:[address] [facility] CBC WITH DIFF 2021-10-12 03:45:00 Nickolas Sandoval [facility] PROTHROMBIN TIME / INR 2021-10-12 03:45:[address] [facility] N-TERMINAL PRO-BNP 2021-10-12 03:45:[address] [facility] XR CHEST 1 VW 2021-10-12 03:40:55 Nickolas Sandoval [facility] NOTICE OF PRIVACY PRACTICES 2021-10-12 03:17:52 Doctor Unassigned, [place] [facility] CONSENT/REFUSAL FOR DIAGNOSIS AND TREATMENT 2021-10-12 03:17:36 Doctor Unassigned, [place] [facility] [id number] 2020-12-29 00:00:00 BOKSY.01 [facility] [id number] 2020-12-29 00:00:00 BOKSY.01 [facility] [id number] Ecg Routine Ecg W/least 12 Lds W/i r 2018-01-26 00:00:00 Jordi Bullock Encounters Start Date/Time End Date/Time Encounter Type Admission Type Attending [facility] Facility Care Department Encounter ID Source 2020-12-27 18:02:00 Inpatient Alfred Zee HCAPM [id number] [facility] [place] 2024-05-16 13:11:13 2024-05-16 13:11:13 Outpatient SFA SFA [id number] Jordi Bullock 2024-05-09 14:03:18 2024-05-09 14:03:18 Outpatient SFA SFA [id number] Jordi Bullock 2024-05-07 15:40:46 2024-05-07 15:40:46 Outpatient SFA SFA [id number] Jordi Bullock 2024-04-30 08:43:53 2024-04-30 08:43:53 Outpatient SFA SFA [id number] Jordi Bullock 2024-04-25 15:15:17 2024-04-25 15:15:17 Outpatient SFA SFA [id number] Jordi Bullock 2024-04-16 08:17:38 2024-04-16 08:17:38 Outpatient SFA SFA [id number] Jordi Bullock 2024-04-10 15:07:02 2024-04-10 15:07:02 Outpatient SFA SFA [id number] Jordi Bullock 2024-04-06 14:19:04 2024-04-06 14:19:04 Outpatient SFA SFA [id number] Jordi Bullock 2024-04-06 00:00:00 2024-04-06 00:00:00 Outpatient Visit SFA [id number] Jordi Bullock 2024-04-02 14:31:38 2024-04-02 14:31:38 Outpatient SFA SFA [id number] Jordi Bullock 2024-03-27 12:48:23 2024-03-27 12:48:23 Outpatient SFA SFA [id number] Jordi Bullock 2024-03-23 13:07:34 2024-03-23 13:07:34 Outpatient SFA SFA [id number] Jordi Bullock 2024-03-23 00:00:00 2024-03-23 00:00:00 Outpatient Visit SFA [id number] Jordi Bullock 2024-03-05 15:30:00 2024-03-05 15:30:00 Outpatient MELISSA ROY [facility] [id number] [facility] 2024-03-05 08:58:16 2024-03-05 08:58:16 Outpatient SFA SFA [id number] Jordi Bullock 2023-12-20 00:00:00 2023-12-20 00:00:00 Outpatient Visit SFA [id number] Jordi Bullock 2023-12-14 10:34:56 2023-12-14 10:34:56 Outpatient SFA SFA [id number] Jordi Bullock 2023-12-07 08:40:35 2023-12-07 08:40:35 Outpatient SFA SFA [id number] Jordi Bullock 2023-11-25 10:29:38 2023-11-25 10:29:38 Outpatient SFA SFA [id number] Jordi Bullock 2023-11-23 10:04:20 2023-11-23 10:04:20 Outpatient SFA SFA [id number] Jordi Bullock 2023-11-23 00:00:00 2023-11-23 00:00:00 Outpatient Visit SFA [id number] Jordi Bullock 2023-11-23 00:00:00 2023-11-23 00:00:00 Outpatient Visit SFA [id number] Jordi Bullock 2023-08-24 13:45:48 2023-08-24 13:45:48 Outpatient [facility] [id number] Jordi Bullock 2023-06-22 10:45:44 2023-06-22 10:45:44 Outpatient [facility] [id number] Jordi Bullock 2023-06-20 09:42:48 2023-06-20 09:42:48 Outpatient [facility] [id number] Jordi Bullock 2022-12-22 08:45:06 2022-12-22 08:45:06 Outpatient [facility] [id number] Jordi Kendrick Kobe 2022-01-11 10:00:00 2022-01-11 10:00:00 [id number] 2021-11-17 15:00:00 2021-11-17 15:00:00 Outpatient Christoph [facility] [id number] [facility] 2021-11-17 15:00:00 2021-11-17 15:00:00 Outpatient Christoph [facility] [id number] [facility] 2021-10-11 22:31:00 2021-10-12 02:22:00 Emergency Nickolas Sandoval [facility] [id number] [facility] 2021-10-11 22:31:00 2021-10-12 02:22:00 Emergency X [facility] ERT [id number] [facility] 2020-12-27 21:42:00 2020-12-27 21:42:00 Outpatient Alfred Escobedo [facility] [id number] [facility] Results Test Description Test Time Test Comments Results Result Co mments Source CULTURE, ROUTINE 2024-03-27 10:48:10 SPECIMEN NUMBER: [id number] CULTURE, ROUTINE SPECIMEN NUMBER: [id number] SPECIMEN COMMENT: SKIN SOURCE: SKIN REPORT STATUS: FINAL FINAL REPORT: 03/27/2024 MODERATE NORMAL SKIN EMANUEL PRELIMINARY REPORT: 03/26/2024 MODERATE MIXED GRAM POSITIVE EMANUEL UNLESS OTHERWISE INDICATED, ALL TESTING PERFORMED AT [facility] [employer] [address] [place] [address] COTTON FEEDER: BEBA MACILE M.D. CLIA NUMBER [id number] [place] [id number] Jordi Cerda, [id number] 14:40:11SPECIMEN NUMBER: [id number] CULTURE, ROUTINE SPECIMEN NUMBER: [id number] SPECIMEN COMMENT: BELLY BUTTON SOURCE: OTHER SOURCE REPORT STATUS: FINAL DIRECT GRAM STAIN: NO WBCs OBSERVED MODERATE GRAM VARIABLE BACILLI FEW GRAM POSITIVE COCCI FINAL REPORT: 03/09/2024 MODERATE NORMAL SKIN EMANUEL PRELIMINARY REPORT: 03/07/2024 FEW MIXED GRAM POSITIVE EMANUEL PRELIMINARY REPORT #2: 03/08/2024 MODERATE MIXED GRAM POSITIVE EMANUEL UNLESS OTHERWISE INDICATED, ALL TESTING PERFORMED AT [facility] [employer] [address] [place] [id number] COTTON FEEDER: BEBA MACIEL M.D. CLIA NUMBER [id number] [place]. [id number], [id number] 00:00:00* Test Item Value Reference Range Interpretation Comme yon CULTURE, ROUTINE (test code = 30370) SPECIMEN NUMBER: [id number] Jordi Cerda, [id number] 00:00:00* Test Item Value Reference Range Interpretation Comme nts CULTURE, ROUTINE (test code = 64771) SPECIMEN NUMBER: [id number] Jordi BullockEGFR, CREATININE AND [id number] 05:19:07* Test Item Value Reference Range Interpretation Comme [facility] CYSTATIN-C (test code = 08216) 1.5 MG/L 0.6-1.2 H CREATININE (test code = 2214) 1.00 MG/DL 0.60-1.30 eGFR CYS-CR.(2020 CKD-EPI) (test code = 48176) 53 ML/MIN/1.73 >59 L HEMOGLOBIN [id number] 05:10:56* Test Item Value Reference Range Interpretation Comme [facility] HEMOGLOBIN A1c (test code = 51741) 6.0 % 4.2-5.6 H [employer] GUIDELINES FOR HGB A1C: [...] INDICATED, ALL TESTING PERFORMED AT [facility] [employer] [address] [place] [address] COTTON FEEDER: BEBA MACIEL M.D. CLIA NUMBER [id number] [facility] [place] [id number] COMPREHENSIVE METABOLIC [id number] 05:03:28* Test Item Value Reference Range Interpretation Comme nts GLUCOSE (test code = 2217) 88 MG/DL 70-99 BUN (test code = 2207) 15 MG/DL 6-20 CREATININE (test code = 2214) 1.00 MG/DL 0.60-1.30 eGFR (2020 CKD-EPI) (test co de = 42168) 66 ML/MIN/1.73 >60 CALC BUN/CREAT (test code = 2235) 15 RATIO 6-28 SODIUM (test code = 223) 136 MEQ/L 133-146 POTASSIUM (test code = [...] 16 U/L 5-40 CBC W/AUTO DIFF WITH [id number] 03:04:15* Test Item Value Reference Range Interpretation [...] = 1065) 0.0 /100 WBC'S See_Comment [Automated messa ge] The system which [...] 0.00-0.10 ABS NUCLEATED RBCS (test code = 61565) 0.00 K/UL 0.00-0.11 COMPREHENSIVE METABOLIC [id number] 00:00:00* Test Item Value Reference Range Interpretation Comme nts GLUCOSE (test code = 2217) 88 MG/DL BUN (test code = 2208) 15 MG/DL CREATININE (test code = 2214) 1.00 MG/DL eGFR (2020 CKD-EPI) (test co de = 63019) 66 ML/MIN/1.73 CALC BUN/CREAT (test code = [...] (test code = 2219) 16 U/L [facility]O [id number] 00:00:00* Test Item Value Reference Range Interpretation [...] ABS NUCLEATED RBCS (test cod e = 35113) 0.00 K/UL Jordi BullockEGFR CREATININE AND [id number] 00:00:00* Test Item Value Reference Range Interpretation Comme nts CYSTATIN-C (test code = 26429) 1.5 MG/L CREATININE (test code = 2214) 1.00 MG/DL eGFR CYS-CR.(2020 CKD-EPI) (test code = 55357) 53 ML/MIN/1.73 Jordi BullockHEMOGLOBIN [id number] 00:00:00* Test Item Value Reference Range Interpretation Comme nts HEMOGLOBIN A1c (test code = 80495) 6.0 % Jordi BullockCOMPREHENSIVE METABOLIC [id number] 00:00:00* Test Item Value Reference Range Interpretation Comme nts GLUCOSE (test code = 2217) 88 MG/DL BUN (test code = 2208) 15 MG/DL CREATININE (test code = 2214) 1.00 MG/DL eGFR (2020 CKD-EPI) (test co de = 40046) 66 ML/MIN/1.73 CALC BUN/CREAT (test code = [...] = 2219) 16 U/L Jordi BullockCBC W/AUTO [id number] 00:00:00* Test Item Value Reference Range Interpretation [...] ABS NUCLEATED RBCS (test cod e = 12915) 0.00 K/UL Jordi BullockEGFR CREATININE AND [id number] 00:00:00* Test Item Value Reference Range Interpretation Comme nts CYSTATIN-C (test code = 28271) 1.5 MG/L CREATININE (test code = 2214) 1.00 MG/DL eGFR CYS-CR.(2020 CKD-EPI) (test code = 63003) 53 ML/MIN/1.73 Jordi BullockHEMOGLOBIN [id number] 00:00:00* Test Item Value Reference Range Interpretation Comme [facility] HEMOGLOBIN A1c (test code = 12751) 6.0 % Jordi BullockCOMPREHENSIVE METABOLIC [id number] 00:00:00* Test Item Value Reference Range Interpretation Comme [facility] GLUCOSE (test code = 2217) 88 MG/DL BUN (test code = 2208) 15 MG/DL CREATININE (test code = 2214) 1.00 MG/DL eGFR (2020 CKD-EPI) (test co de = 45898) 66 ML/MIN/1.73 CALC BUN/CREAT (test code = [...] = 2219) 16 U/L Jordi BullockCBC W/AUTO [id number] 00:00:00* Test Item Value Reference Range Interpretation Comme [facility] WBC (test code = 1001) 9.2 K/UL [...] ABS NUCLEATED RBCS (test cod e = 68149) 0.00 K/UL Jordi BullockEGFR CREATININE AND [id number] 00:00:00* Test Item Value Reference Range Interpretation Comme nts CYSTATIN-C (test code = 71250) 1.5 MG/L CREATININE (test code = 2214) 1.00 MG/DL eGFR CYS-CR.(2020 CKD-EPI) (test code = 52875) 53 ML/MIN/1.73 Jordi BullockHEMOGLOBIN [id number] 00:00:00* Test Item Value Reference Range Interpretation Comme nts HEMOGLOBIN A1c (test code = 21304) 6.0 % Jordi BullockCOMPREHENSIVE METABOLIC [id number] 00:00:00* Test Item Value Reference Range Interpretation Comme nts GLUCOSE (test code = 2217) 88 MG/DL BUN (test code = 2208) 15 MG/DL CREATININE (test code = 2214) 1.00 MG/DL eGFR (2020 CKD-EPI) (test co de = 03839) 66 ML/MIN/1.73 CALC BUN/CREAT (test code = [...] = 2219) 16 U/L Jordi BullockCBC W/AUTO [id number] 00:00:00* Test Item Value Reference Range Interpretation [...] ABS NUCLEATED RBCS (test cod e = 22727) 0.00 K/UL Jordi BullockEGFR CREATININE AND [id number] 00:00:00* Test Item Value Reference Range Interpretation Comme nts CYSTATIN-C (test code = 44506) 1.5 MG/L CREATININE (test code = 2214) 1.00 MG/DL eGFR CYS-CR.(2020 CKD-EPI) (test code = 20592) 53 ML/MIN/1.73 Jordi BullockHEMOGLOBIN [id number] 00:00:00* Test Item Value Reference Range Interpretation Comme nts HEMOGLOBIN A1c (test code = 88385) 6.0 % Jordi GuidryN [id number] 06:53:42* Test Item Value Reference Range Interpretation Comments TROPONIN I (test code = 7747024095) 0.003 ng/mL See_Comment [Automated message] The system [...] of biotin. Lab Interpretation (test code = 17911-1) Normal [facility] [id number] 04:23:15* Test Item Value Reference Range Interpretation Comments TROPONIN I (test code = 5601631779) 0.002 ng/mL See_Comment [Automated message] The system [...] of biotin. Lab Interpretation (test code = 13806-2) Normal [facility] [id number] 04:20:14* Test Item Value Reference Range Interpretation Comme nts NT-proBNP (test code = 3628568285) 123 pg/mL See_Comment [Automated message] The system which generated this result transmitted reference range: <=125. The reference range was not used to interpret this result as normal/abnormal. JOSE (test code = JOSE) Biotin has been reported to cause a negative bias, interpret results relative to patient's use of biotin. Lab Interpretation (test code = 09884-1) Normal [facility] CenterCOMP[facility] MET[facility]OLIC PANEL (10558)2021-10-12 04:11:13* Test Item Value Reference Range Interpretation Comme nts NA (test code = 5986062257) 138 mmol/L 135-145 K (test code = 8601053988) 4.5 mmol/L 3.5-5.0 CL (test code = 0713212200) 102 mmol/L 98-108 CO2 TOTAL (test code = 9687647990) 26 mmol/L 23-31 AGAP (test code = 6472491315) 2-16 BUN (test code = 0203702250) 10 mg/dL 7-23 GLUCOSE (test code = 4781110927) 132 mg/dL 70-110 H CREATININE (test code = 6723240761) 0.67 mg/dL 0.50-1.04 TOTAL BILI (test code = 6853680013) 1.1 mg/dL 0.1-1.1 CALCIUM (test code = 8478978750) 9.1 mg/dL 8.6-10.6 T PROTEIN (test code = 9449545208) 6.8 g/dL 6.3-8.2 ALBUMIN (test code = 4868381121) 4.0 g/dL 3.5-5.0 ALK PHOS (test code = 2030028710) 82 U/L 34-122 ALTv (test code = 1742-6) 18 U/L 5-35 AST(SGOT) (test code = 0282259348) 26 U/L 13-40 eGFR (test code = 8565303330) mL/min/1.73m2 JOSE (test code = JOSE) Association [...] imaging tests). Lab Interpretation (test code = 37814-8) Abnormal [facility] CenterPROTHROMBIN TIME / [id number] 04:08:33* Test Item Value Reference Range Interpretation Comme nts THOMASIME PATIENT (test code = 5964-2) See_Comment [Automated Spectropath] The system which generated this result transmitted reference range: 12.0 - 14.7 Seconds. The reference range was not used to interpret this result as normal/abnormal. INR (test code = 6301-6) Normal INR <1.1; Warfarin Therapeutic range 2.0 to 3.0 or 2.5 to 3.5, depending upon the indications. Lab Interpretation (test code = 24122-9) Normal [facility] CenterCBC WITH [id number] 04:00:16* Test Item Value Reference Range Interpretation Comme nts WBC (test code = 6690-2) See_Comment [Automated messa ge] The system which generated this result transmitted reference range: 4.30 - 11.10 10*3/?L. The reference range was not used to interpret this result as normal/abnormal. RBC (test code = 789-8) See_Comment [Automated Lot78a ge] The system which generated this result [...] 32.6 g/dL 31.6-35.1 RDW-SD (test code = 86066-8) 41.4 fL 39.0-49.9 RDW-CV (test code = 788-0) 12.9 % 12.0-15.5 PLT (test code = 777-3) See_Comment [Automated Lot78a ge] The system which generated this result transmitted reference range: 166 - 358 10*3/?L. The reference range was not used to interpret this result as normal/abnormal. MPV (test code = 21090-2) 10.0 fL 9.5-12.9 NRBC/100 WBC (test code = 0949756837) See_Comment [Automated me ssage] The system which generated this result transmitted reference range: 0.0 - 10.0 /100 WBCs. The reference range was not used to interpret this result as normal/abnormal. NRBC x10^3 (test code = 2862348091) <0.01 See_Comment [Automated me ssage] The system which generated this result transmitted reference range: 10*3/?L. The reference range was not used to interpret this result as normal/abnormal. GRAN MAT (NEUT) % (test code = 770-8) 68.8 % IMM GRAN % (test code = 5359700742) 0.60 % LYMPH % (test code = 736-9) 22.1 % MONO % (test code = 5905-5) 4.7 % EOS % (test code = 713-8) 3.4 % BASO % (test code = 706-2) 0.4 % GRAN MAT x10^3(ANC) (test code = 7415099294) 6.18 10*3/uL 1.88-7.09 IMM GRAN x10^3 (test code = 5381719324) 0.05 10*3/uL 0.00-0.06 LYMPH x10^3 (test code = 731-0) 1.99 10*3/uL 1.32-3.29 MONO x10^3 (test code = 742-7) 0.42 10*3/uL 0.33-0.92 EOS x10^3 (test code = 711-2) 0.31 10*3/uL 0.03-0.39 BASO x10^3 (test code = 704-7) 0.04 10*3/uL 0.01-0.07 [facility] W/AUTO [id number] 00:00:00* Test Item Value Reference Range Interpretation [...] ABS NUCLEATED RBCS (test cod e = 70438) 0.00 K/UL Jordi BullockFOLIC [id number] 00:00:00* Test Item Value Reference Range Interpretation Comme nts FOLIC ACID (test code = 2695) 10.2 UG/L Jordi BullockVITAMIN D, 25 [id number] 00:00:00* Test Item Value Reference Range Interpretation Comme nts VITAMIN D, 25 OH (test code = 4958) 31 NG/ML Jordi BullockLIPID [id number] 00:00:00* Test Item Value Reference Range Interpretation Comme nts CHOLESTEROL (test code = 2210) 205 MG/DL TRIGLYCERIDES (test code = 2232) 154 MG/DL HDL CHOLESTEROL (test code = 2220) 54 MG/DL CALC LDL CHOL (test code = 2237) 124 MG/DL RISK RATIO LDL/HDL (test cod e = 2238) 2.30 RATIO Jordi BullockHEMOGLOBIN [id number] 00:00:00* Test Item Value Reference Range Interpretation Comme nts HEMOGLOBIN A1c (test code = 10013) 6.0 % Jordi BullockCOMPREHENSIVE METABOLIC [id number] 00:00:00* Test Item Value Reference Range Interpretation Comme nts GLUCOSE (test code = 2217) 101 MG/DL BUN (test code = 2208) 11 MG/DL CREATININE (test code = 2214) 0.74 MG/DL eGFR (2020 CKD-EPI) (test co de = 87899) 96 ML/MIN/1.73 CALC BUN/CREAT (test code = [...] (test code = 2219) 20 U/L [facility] [id number] 00:00:00* Test Item Value Reference Range Interpretation [...] ABS NUCLEATED RBCS (test cod e = 20871) 0.00 K/UL [facility] [id number] 00:00:00* Test Item Value Reference Range Interpretation Comme nts FOLIC ACID (test code = 2695) 10.2 UG/L Jordi BullockVITAMIN D, 25 [id number] 00:00:00* Test Item Value Reference Range Interpretation Comme nts VITAMIN D, 25 OH (test code = 4958) 31 NG/ML Jordi BullockLIPID [id number] 00:00:00* Test Item Value Reference Range Interpretation Comme nts CHOLESTEROL (test code = 2210) 205 MG/DL TRIGLYCERIDES (test code = 2232) 154 MG/DL HDL CHOLESTEROL (test code = 2220) 54 MG/DL CALC LDL CHOL (test code = 2237) 124 MG/DL RISK RATIO LDL/HDL (test cod e = 2238) 2.30 RATIO Jordi BullockHEMOGLOBIN [id number] 00:00:00* Test Item Value Reference Range Interpretation Comme nts HEMOGLOBIN A1c (test code = 18367) 6.0 % Jordi BullockCOMPREHENSIVE METABOLIC [id number] 00:00:00* Test Item Value Reference Range Interpretation Comme nts GLUCOSE (test code = 2217) 101 MG/DL BUN (test code = 2208) 11 MG/DL CREATININE (test code = 2214) 0.74 MG/DL eGFR (2020 CKD-EPI) (test co de = 89722) 96 ML/MIN/1.73 CALC BUN/CREAT (test code = [...] = 2219) 20 U/L Jordi BullockCBC W/AUTO [id number] 00:00:00* Test Item Value Reference Range Interpretation [...] ABS NUCLEATED RBCS (test cod e = 05935) 0.00 K/UL Jordi BullockFOLIC [id number] 00:00:00* Test Item Value Reference Range Interpretation Comme nts FOLIC ACID (test code = 2695) 10.2 UG/L Jordi BullockVITAMIN D, 25 [id number] 00:00:00* Test Item Value Reference Range Interpretation Comme nts VITAMIN D, 25 OH (test code = 4958) 31 NG/ML Jordi BullockLIPID [id number] 00:00:00* Test Item Value Reference Range Interpretation Comme nts CHOLESTEROL (test code = 2210) 205 MG/DL TRIGLYCERIDES (test code = 2232) 154 MG/DL HDL CHOLESTEROL (test code = 2220) 54 MG/DL CALC LDL CHOL (test code = 2237) 124 MG/DL RISK RATIO LDL/HDL (test cod e = 2238) 2.30 RATIO Jordi BullockHEMOGLOBIN [id number] 00:00:00* Test Item Value Reference Range Interpretation Comme nts HEMOGLOBIN A1c (test code = 11953) 6.0 % Jordi BullockCOMPREHENSIVE METABOLIC [id number] 00:00:00* Test Item Value Reference Range Interpretation Comme nts GLUCOSE (test code = 2217) 101 MG/DL BUN (test code = 2208) 11 MG/DL CREATININE (test code = 2214) 0.74 MG/DL eGFR (2020 CKD-EPI) (test co de = 10097) 96 ML/MIN/1.73 CALC BUN/CREAT (test code = [...] = 2219) 20 U/L Jordi BullockCBC W/AUTO [id number] 00:00:00* Test Item Value Reference Range Interpretation [...] ABS NUCLEATED RBCS (test cod e = 70233) 0.00 K/UL Jordi BullockFOLIC [id number] 00:00:00* Test Item Value Reference Range Interpretation Comme nts FOLIC ACID (test code = 2695) 10.2 UG/L Jordi BullockVITAMIN D, 25 [id number] 00:00:00* Test Item Value Reference Range Interpretation Comme nts VITAMIN D, 25 OH (test code = 4958) 31 NG/ML Jordi BullockLIPID [id number] 00:00:00* Test Item Value Reference Range Interpretation Comme nts CHOLESTEROL (test code = 2210) 205 MG/DL TRIGLYCERIDES (test code = 2232) 154 MG/DL HDL CHOLESTEROL (test code = 2220) 54 MG/DL CALC LDL CHOL (test code = 2237) 124 MG/DL RISK RATIO LDL/HDL (test cod e = 2238) 2.30 RATIO Jordi BullockHEMOGLOBIN [id number] 00:00:00* Test Item Value Reference Range Interpretation Comme nts HEMOGLOBIN A1c (test code = 84878) 6.0 % Jordi BullockCOMPREHENSIVE METABOLIC [id number] 00:00:00* Test Item Value Reference Range Interpretation Comme nts GLUCOSE (test code = 2217) 101 MG/DL BUN (test code = 2208) 11 MG/DL CREATININE (test code = 2214) 0.74 MG/DL eGFR (2020 CKD-EPI) (test co de = 69368) 96 ML/MIN/1.73 CALC BUN/CREAT (test code = [...] (test code = 2219) 20 U/L [facility] [id number] 00:00:00* Test Item Value Reference Range Interpretation [...] ABS NUCLEATED RBCS (test cod e = 96713) 0.00 K/UL Jordi BullockFOLIC [id number] 00:00:00* Test Item Value Reference Range Interpretation Comme yon FOLIC ACID (test code = 2695) 10.2 UG/L Jordi BullockVITAMIN D, 25 [id number] 00:00:00* Test Item Value Reference Range Interpretation Comme yon VITAMIN D, 25 OH (test code = 4958) 31 NG/ML Jordi BullockLIPID [id number] 00:00:00* Test Item Value Reference Range Interpretation Comme nts CHOLESTEROL (test code = 2210) 205 MG/DL TRIGLYCERIDES (test code = 2232) 154 MG/DL HDL CHOLESTEROL (test code = 2220) 54 MG/DL CALC LDL CHOL (test code = 2237) 124 MG/DL RISK RATIO LDL/HDL (test cod e = 2238) 2.30 RATIO Jordi BullockHEMOGLOBIN [id number] 00:00:00* Test Item Value Reference Range Interpretation Comme yon HEMOGLOBIN A1c (test code = 44779) 6.0 % Jordi BullockCOMPREHENSIVE METABOLIC [id number] 00:00:00* Test Item Value Reference Range Interpretation Comme nts GLUCOSE (test code = 2217) 101 MG/DL BUN (test code = 2208) 11 MG/DL CREATININE (test code = 2214) 0.74 MG/DL eGFR (2020 CKD-EPI) (test co de = 21924) 96 ML/MIN/1.73 CALC BUN/CREAT (test code = [...] 20 U/L Jordi Kendrick AustinVITAMIN D, 25 [id number] 00:00:00* Test Item Value Reference Range Interpretation Comme nts VITAMIN D, 25 OH (test code = 4958) 21 NG/ML Jordi Kendrick AustinFOLIC [id number] 00:00:00* Test Item Value Reference Range Interpretation Comme nts FOLIC ACID (test code = 2695) 5.0 UG/L Jordi Kendrick AustinHEMOGLOBIN [id number] 00:00:00* Test Item Value Reference Range Interpretation Comme nts HEMOGLOBIN A1c (test code = 34195) 6.7 % Jordi Kendrick AustinVITAMIN D, 25 [id number] 00:00:00* Test Item Value Reference Range Interpretation Comme nts VITAMIN D, 25 OH (test code = 4958) 21 NG/ML Jordi Kendrick AustinFOLIC [id number] 00:00:00* Test Item Value Reference Range Interpretation Comme nts FOLIC ACID (test code = 2695) 5.0 UG/L Jordi Kendrick AustinHEMOGLOBIN [id number] 00:00:00* Test Item Value Reference Range Interpretation Comme nts HEMOGLOBIN A1c (test code = 49191) 6.7 % Jordi Kendrick AustinVITAMIN D, 25 [id number] 00:00:00* Test Item Value Reference Range Interpretation Comme nts VITAMIN D, 25 OH (test code = 4958) 21 NG/ML Jordi Kendrick AustinFOLIC [id number] 00:00:00* Test Item Value Reference Range Interpretation Comme nts FOLIC ACID (test code = 2695) 5.0 UG/L Jordi Kendrick AustinHEMOGLOBIN [id number] 00:00:00* Test Item Value Reference Range Interpretation Comme nts HEMOGLOBIN A1c (test code = 05929) 6.7 % Jordi Kendrick AustinVITAMIN D, 25 [id number] 00:00:00* Test Item Value Reference Range Interpretation Comme nts VITAMIN D, 25 OH (test code = 4958) 21 NG/ML Jordi Kendrick AustinFOLIC [id number] 00:00:00* Test Item Value Reference Range Interpretation Comme nts FOLIC ACID (test code = 2695) 5.0 UG/L Jordi Kendrick AustinHEMOGLOBIN [id number] 00:00:00* Test Item Value Reference Range Interpretation Comme nts HEMOGLOBIN A1c (test code = 41750) 6.7 % Jordi BullockVITAMIN D, 25 [id number] 00:00:00* Test Item Value Reference Range Interpretation Comme yon VITAMIN D, 25 OH (test code = 4958) 21 NG/ML Jordi Kendrick AustinFOLIC [id number] 00:00:00* Test Item Value Reference Range Interpretation Comme yon FOLIC ACID (test code = 2695) 5.0 UG/L Jordi BullockHEMOGLOBIN [id number] 00:00:00* Test Item Value Reference Range Interpretation Comme yon HEMOGLOBIN A1c (test code = 09814) 6.7 % Jordi BullockGLUCOSE BEDSIDE [id number] 15:30:00* Test Item Value Reference Range Interpretation Comme [facility] GLUCOSE BEDSIDE TESTING (radha t code = GLUBED) 202 mg/dL 70-110 H HEPARIN IND [id number] 15:12:00* Test Item Value Reference Range Interpretation Comme [facility] HEPARIN IND THROMBOCYTOPENIA (test code = HIT (PF4 GEM)) 0.205 OD 0.000-0.400 Performe d At: [facility] [id number] Damon MD Ph:[phone] ANTINUCLEAR ANTIBODIES [id number] 13:12:00* Test Item Value Reference Range Interpretation Comme nts XU TITER (test code = ANATITR) Negative See_Comment Negative <1:80 B orderline 1:80 Positive >1:80Performed At: [facility] [address] [id number] Kyle L MD Ph:[phone] [Automated message] The system which generated this result transmitted reference range: (). The reference range was not used to interpret this result as normal/abnormal. GLUCOSE BEDSIDE [id number] 11:51:00* Test Item Value Reference Range Interpretation Comme nts GLUCOSE BEDSIDE TESTING (radha t code = GLUBED) 166 mg/dL 70-110 H GLUCOSE BEDSIDE [id number] 07:39:00* Test Item Value Reference Range Interpretation Comme nts GLUCOSE BEDSIDE TESTING (radha t code = GLUBED) 134 mg/dL 70-110 H [id number] 06:11:00* Test Item Value Reference Range Interpretation Comme nts HAPTOGLOBIN (test code = HAPT) 288 mg/dL 33-346 Performed At: [address] [id number] Sanjai MD Ph:[phone] GLUCOSE BEDSIDE [id number] 20:39:00* Test Item Value Reference Range Interpretation Comme nts GLUCOSE BEDSIDE TESTING (radha t code = GLUBED) 298 mg/dL 70-110 H GLUCOSE BEDSIDE [id number] 16:37:00* Test Item Value Reference Range Interpretation Comme nts GLUCOSE BEDSIDE TESTING (radha t code = GLUBED) 207 mg/dL 70-110 H CBC W/AUTO [id number] 13:26:00* Test Item Value Reference Range Interpretation [...] REVIEW CONSISTANT WITH AUTO DIFFERENTIAL. GLUCOSE BEDSIDE [id number] 12:17:00* Test Item Value Reference Range Interpretation Comme nts GLUCOSE BEDSIDE TESTING (radha t code = GLUBED) 188 mg/dL 70-110 H - XR CHEST 1 [id number] 11:32:00 [facility] 1965 Sex: F Name: LORI DELUCA [place] : 1965 Age/S: 55 / F [id number] Unit #: [id number] Loc: [place] [address] Phys: Ashleigh Lovelora LOVE Acct: [id number] Dis Date: Status: ADM INPHONE #: [phone] Exam Date: 01/05/2021 1056 FAX #: Reason: COVID EXAMS: CPT: [id number] XR CHEST 1 V 56002 Fluoro Time: DAP (Gy m2): Air Kerma (mGy): - XR CHEST 1 V CLINICAL INFORMATION: COVID p neumonia COMPARISONS: January 01, 2021 FINDINGS: The lungs are slightly underexpanded. Diffuse interstitial and patchy alveolar opacities in the lungs show moderate improvement from the comparison study. No pneumothorax or pleural effusion is present. The cardiac silhouette remains mildly enlarged. The bones are intact. IMPRESSION: Improved appearance of diffuse mixed pulmonary opacities. Location:R16 at 1132 Reported and signed by: Anuel Sandoval M.D. CC: Alfred Escobedo MD; Sergio Love PAGE 1 Signed Report Name: LORI DELUCA [place] : 1965 Age/S: 55 / F [id number] Unit #: [id number] Loc: [place] [address] Phys: Sergio Love Acct: [id number] Dis Date: Status: ADM IN PHONE #: [phone] Exam Date: 01/05/2021 1056 FAX #: Reason: COVID EXAMS: CPT: [id number] XR CHEST 1 V 64856 Fluoro Time: DAP (Gy m2): Air Kerma (mGy): (Continued) Technologist: RT Ling(R) Tressa Date/Time: 01/05/2021 (1132) [email or web address] Orig Print D/T: S: 01/05/2021 (6988) PAGE 2 Signed ReportPLATELET [id number] 10:25:00* Test Item Value Reference Range Interpretation Comme nts PLATELET COUNT (test code = PLT) 271 K/mm3 150-450 N This platelet co unt was done on citrated blood from a bluetop tube due to platelet clumping phenomena in EDTA anti-coagulant and has been corrected for the dilution factor. C REACTIVE [id number] 07:36:00* Test Item Value Reference Range Interpretation Comme nts C REACTIVE PROTEIN (test cod e = CRP) < 0.290 MG/DL 0.000-0.3 N GLUCOSE BEDSIDE [id number] 07:31:00* Test Item Value Reference Range Interpretation Comme nts GLUCOSE BEDSIDE TESTING (radha t code = GLUBED) 168 mg/dL 70-110 H CBC W/AUTO [id number] 07:20:00* Test Item Value Reference Range Interpretation [...] ode = MDIFF) DIFF/SCN CRITERIA GLUCOSE BEDSIDE [id number] 21:11:00* Test Item Value Reference Range Interpretation Comme [facility] GLUCOSE BEDSIDE TESTING (radha t code = GLUBED) 287 mg/dL 70-110 H GLUCOSE BEDSIDE [id number] 17:36:00* Test Item Value Reference Range Interpretation Comme nts GLUCOSE BEDSIDE TESTING (radha t code = GLUBED) 243 mg/dL 70-110 H LACTIC DEHYDROGENASE(LDH)2021-01-04 16:54:00* Test Item Value Reference Range Interpretation Comme nts LACTIC DEHYDROGENASE(LDH) (t est code = LDH) 437 Unit/L 84-246 H VITAMIN [id number] 16:54:00* Test Item Value Reference Range Interpretation Comme nts VITAMIN B12 (test code = VITB12) 3766 PG/ML 183-986 H FOLIC [id number] 16:54:00* Test Item Value Reference Range Interpretation Comme nts FOLIC ACID (test code = FOL) 6.60 NG/ML 3.10-17.50 N THYROID STIMULATING [id number] 16:54:00* Test Item Value Reference Range Interpretation Comme nts THYROID STIMULATING HORMONE (test code = TSH) 1.460 mcIU/ML 0.340-4.820 N CBC W/AUTO [id number] 15:48:00* Test Item Value Reference Range Interpretation [...] Test Item Value Reference Range Interpretation Comme [facility] LACTIC DEHYDROGENASE(LDH) (t est code = LDH) 437 Unit/L 84-246 H VITAMIN [id number] 13:29:00* Test Item Value Reference Range Interpretation Comme nts VITAMIN B12 (test code = VITB12) PG/ML 183-986 FOLIC [id number] 13:29:00* Test Item Value Reference Range Interpretation Comme nts FOLIC ACID (test code = FOL) NG/ML 3.10-17.50 THYROID STIMULATING [id number] 13:29:00* Test Item Value Reference Range Interpretation Comme [facility] THYROID STIMULATING HORMONE (test code = TSH) 1.460 mcIU/ML 0.340-4.820 N GLUCOSE BEDSIDE [id number] 12:20:00* Test Item Value Reference Range Interpretation Comme [facility] GLUCOSE BEDSIDE TESTING (radha t code = GLUBED) 215 mg/dL 70-110 H PROTHROMBIN [id number] 10:55:00* Test Item Value Reference Range Interpretation Comme [facility] PT PATIENT (test code = PTP) 11.8 SECONDS 9.3-12.9 N INTERNATIONAL NORMAL RATIO (test code = INR) 1.05 INR Unit 0.8-1.2 N THROMBOPLASTIN TIME [id number] 10:55:00* Test Item Value Reference Range Interpretation Comme [facility] THROMBOPLASTIN TIME PARTIAL (test code = PTT) 38.4 SECONDS 26-35 H BASIC METABOLIC [id number] 10:45:00* Test Item Value Reference Range Interpretation [...] CA) 9.0 MG/DL 8.5-10.1 N CBC W/AUTO [id number] 10:31:00* Test Item Value Reference Range Interpretation [...] ode = MDIFF) DIFF/SCN CRITERIA GLUCOSE BEDSIDE [id number] 07:58:00* Test Item Value Reference Range Interpretation Comme nts GLUCOSE BEDSIDE TESTING (radha t code = GLUBED) 165 mg/dL 70-110 H CBC W/AUTO [id number] 22:15:00* Test Item Value Reference Range Interpretation [...] SLIDE REVIEW CONSISTANT WITH AUTO DIFFERENTIAL. RBC [id number] 22:15:00* Test Item Value Reference Range Interpretation Comme nts PLATELET ESTIMATE (test code = PLTEST) MARKEDLY DECREASED THOUSAND ADEQUATE PLATELET MORPHOLOGY (test code = PLTMORPH) CLUMPS GLUCOSE BEDSIDE [id number] 20:43:00* Test Item Value Reference Range Interpretation Comme nts GLUCOSE BEDSIDE TESTING (radha t code = GLUBED) 203 mg/dL 70-110 H GLUCOSE BEDSIDE [id number] 16:25:00* Test Item Value Reference Range Interpretation Comme nts GLUCOSE BEDSIDE TESTING (radha t code = GLUBED) 224 mg/dL 70-110 H GLUCOSE BEDSIDE [id number] 12:16:00* Test Item Value Reference Range Interpretation Comme nts GLUCOSE BEDSIDE TESTING (radha t code = GLUBED) 205 mg/dL 70-110 H GLUCOSE BEDSIDE [id number] 07:55:00* Test Item Value Reference Range Interpretation Comme nts GLUCOSE BEDSIDE TESTING (radha t code = GLUBED) 172 mg/dL 70-110 H CBC W/AUTO [id number] 07:01:00* Test Item Value Reference Range Interpretation [...] REVIEW CONSISTANT WITH AUTO DIFFERENTIAL. CBC W/AUTO [id number] 07:01:00* Test Item Value Reference Range Interpretation [...] REVIEW CONSISTANT WITH AUTO DIFFERENTIAL. BASIC METABOLIC [id number] 05:11:00* Test Item Value Reference Range Interpretation [...] CA) 8.8 MG/DL 8.5-10.1 N CBC W/AUTO [id number] 04:58:00* Test Item Value Reference Range Interpretation [...] ode = MDIFF) DIFF/SCN CRITERIA GLUCOSE BEDSIDE [id number] 20:10:00* Test Item Value Reference Range Interpretation Comme nts GLUCOSE BEDSIDE TESTING (radha t code = GLUBED) 209 mg/dL 70-110 H GLUCOSE BEDSIDE [id number] 16:26:00* Test Item Value Reference Range Interpretation Comme nts GLUCOSE BEDSIDE TESTING (radha t code = GLUBED) 208 mg/dL 70-110 H GLUCOSE BEDSIDE [id number] 12:02:00* Test Item Value Reference Range Interpretation Comme nts GLUCOSE BEDSIDE TESTING (radha t code = GLUBED) 247 mg/dL 70-110 H GLUCOSE BEDSIDE [id number] 07:40:00* Test Item Value Reference Range Interpretation Comme nts GLUCOSE BEDSIDE TESTING (radha t code = GLUBED) 143 mg/dL 70-110 H CBC W/AUTO [id number] 07:04:00* Test Item Value Reference Range Interpretation [...] SLIDE REVIEW CONSISTANT WITH AUTO DIFFERENTIAL. RBC [id number] 07:04:00* Test Item Value Reference Range Interpretation Comments PLATELET ESTIMATE (test code = PLTEST) DECREASED THOUSAND ADEQUATE POSSIBLE CLUMPING DU E TO EDTA REACTION. RECOMMENDSCOLLECTION OF BLUE AND LAVENDER TUBE. SEEN PLATELETAGGREGATIONS. INTERPRET WITH CAUTION. NOTIFIED ZOYA PHELAN @[facility] 6.18.1 MGG PLATELET MORPHOLOGY (test code = PLTMORPH) AGGREGATES CBC W/AUTO [id number] 06:59:00* Test Item Value Reference Range Interpretation [...] REVIEW CONSISTANT WITH AUTO DIFFERENTIAL. CBC W/AUTO [id number] 06:59:00* Test Item Value Reference Range Interpretation [...] REVIEW CONSISTANT WITH AUTO DIFFERENTIAL. BASIC METABOLIC [id number] 06:31:00* Test Item Value Reference Range Interpretation [...] CA) 8.9 MG/DL 8.5-10.1 N BASIC METABOLIC [id number] 06:29:00* Test Item Value Reference Range Interpretation [...] CA) 8.9 MG/DL 8.5-10.1 N CBC W/AUTO [id number] 06:10:00* Test Item Value Reference Range Interpretation [...] ode = MDIFF) DIFF/SCN CRITERIA GLUCOSE BEDSIDE [id number] 21:41:00* Test Item Value Reference Range Interpretation Comme [facility] GLUCOSE BEDSIDE TESTING (radha t code = GLUBED) 179 mg/dL 70-110 H GLUCOSE BEDSIDE [id number] 18:24:00* Test Item Value Reference Range Interpretation Comme [facility] GLUCOSE BEDSIDE TESTING (radha t code = GLUBED) 156 mg/dL 70-110 H ARTERIAL BLOOD [id number] 16:11:00* Test Item Value Reference Range Interpretation Comme [facility] ARTERIAL BLOOD GAS PH (test [...] (test code = MODALL) Yes Circ.CHK POSITIVE PaO2/[id number] 16:11:00* Test Item Value Reference Range Interpretation Comme [facility] PaO2/FiO2 (test code = [id number]) 55.6 mm/Hg See_Comment L [Automated mess age] The system which generated this result transmitted reference range: 200. The reference range was not used to interpret this result as normal/abnormal. ARTERIAL BLOOD [id number] 16:10:00* Test Item Value Reference Range Interpretation Comme [facility] ARTERIAL BLOOD GAS PH (test [...] (test code = MODALL) Yes Circ.CHK POSITIVE PaO2/[id number] 16:10:00* Test Item Value Reference Range Interpretation Comme [facility] PaO2/FiO2 (test code = NIL4LWX3) mm/Hg See_Comment [Automated messa ge] The system which generated this result transmitted reference range: 200. The reference range was not used to interpret this result as normal/abnormal. GLUCOSE BEDSIDE [id number] 11:37:00* Test Item Value Reference Range Interpretation Comme nts GLUCOSE BEDSIDE TESTING (radha t code = GLUBED) 171 mg/dL 70-110 H CBC W/AUTO [id number] 11:10:00* Test Item Value Reference Range Interpretation [...] SLIDE REVIEW CONSISTANT WITH AUTO DIFFERENTIAL. RBC [id number] 11:10:00* Test Item Value Reference Range Interpretation Comme nts PLATELET ESTIMATE (test code = PLTEST) DECREASED THOUSAND ADEQUATE ESTIMATED PLATELET RANGE = 64,000 - 80,000 PLATELET MORPHOLOGY (test code = PLTMORPH) CLUMPS CBC W/AUTO [id number] 11:06:00* Test Item Value Reference Range Interpretation [...] REVIEW CONSISTANT WITH AUTO DIFFERENTIAL. CBC W/AUTO [id number] 11:05:00* Test Item Value Reference Range Interpretation [...] REVIEW CONSISTANT WITH AUTO DIFFERENTIAL. CBC W/AUTO [id number] 09:36:00* Test Item Value Reference Range Interpretation [...] MDIFF) DIFF/SCN CRITERIA - XR CHEST 1 [id number] 09:32:00 [facility] 1965 Sex: F Name: LORI DELUCA [facility] : 1965 Age/S: 55 / F [address] Unit #: [id number] Loc: [place] [address] Phys: Sergio Love Acct: [id number] Dis Date: Status: ADM IN PHONE #: [phone] Exam Date: 01/01/2021 06 FAX #: Reason: COVID EXAMS: CPT: [id number] XR CHEST1 V 82560 Fluoro Time: DAP (Gy m2): Air Kerma (mGy): EXAMINATION: - XR CHEST 1 V. LOCATION: S17. HISTORY: COVID pneumonia. COMPARISON: Chest x-ray 12/30/2020, CTA chest 12/27/20. FINDINGS: Examinationis limited due to portable technique, patient body [...] PAGE 1 Signed Report Name: LORI DELUCA [facility] : 1965 Age/S: 55 / F [address] Unit #: [id number] Loc: [place] [address] Phys: Sergio Love AGACNP Acct: [id number] Dis Date: Status: ADM IN PHONE #: [phone] Exam Date: 601 FAX #: Reason: COVID EXAMS: CPT: [id number] XR CHEST 1 V 48532 Fluoro Time: DAP (Gy m2): Air Kerma (mGy): (Continued) Technologist: Adriana Forte RT(R)(CT) Trnscb Date/Time: 01/01/2021 (931) t.[email or web address] Orig Print D/T: S: 01/01/2021 (0928) PAGE 2 Signed ReportGLUCOSE BEDSIDE [id number] 08:22:00 * Test Item Value Reference Range Interpretation Comme nts GLUCOSE BEDSIDE TESTING (radha t code = GLUBED) 143 mg/dL 70-110 H BASIC METABOLIC [id number] 06:55:00* Test Item Value Reference Range Interpretation [...] code = LDH) 281 Unit/L 84-246 H [id number] 06:55:00* Test Item Value Reference Range Interpretation Comme nts FERRITIN (test code = WOOD) 133.9 NG/ML 3.0-105.0 H BASIC METABOLIC [id number] 06:52:00* Test Item Value Reference Range Interpretation [...] (t est code = LDH) Unit/L 84-246 [id number] 06:52:00* Test Item Value Reference Range Interpretation Comme nts FERRITIN (test code = WOOD) NG/ML 3.0-105.0 [id number] 06:41:00* Test Item Value Reference Range Interpretation Comme nts D-DIMER (test code = DDIMER) 430 ng/mLFEU 215-500 N C REACTIVE [id number] 06:40:00* Test Item Value Reference Range Interpretation Comme nts C REACTIVE PROTEIN (test cod e = CRP) 7.530 MG/DL 0.000-0.3 H GLUCOSE BEDSIDE [id number] 21:00:00* Test Item Value Reference Range Interpretation Comme nts GLUCOSE BEDSIDE TESTING (radha t code = GLUBED) 175 mg/dL 70-110 H GLUCOSE BEDSIDE [id number] 16:53:00* Test Item Value Reference Range Interpretation Comme nts GLUCOSE BEDSIDE TESTING (radha t code = GLUBED) 126 mg/dL 70-110 H GLUCOSE BEDSIDE [id number] 12:19:00* Test Item Value Reference Range Interpretation Comme nts GLUCOSE BEDSIDE TESTING (radha t code = GLUBED) 122 mg/dL 70-110 H GLUCOSE BEDSIDE [id number] 08:20:00* Test Item Value Reference Range Interpretation Comme nts GLUCOSE BEDSIDE TESTING (radha t code = GLUBED) 119 mg/dL 70-110 H BASIC METABOLIC [id number] 06:37:00* Test Item Value Reference Range Interpretation [...] CA) 8.5 MG/DL 8.5-10.1 N CBC W/AUTO [id number] 06:33:00* Test Item Value Reference Range Interpretation [...] = MDIFF) NO DIFF/SCN CRITERIA GLUCOSE BEDSIDE [id number] 20:10:00* Test Item Value Reference Range Interpretation Comme nts GLUCOSE BEDSIDE TESTING (radha t code = GLUBED) 153 mg/dL 70-110 H GLUCOSE BEDSIDE [id number] 17:51:00* Test Item Value Reference Range Interpretation Comme nts GLUCOSE BEDSIDE TESTING (radha t code = GLUBED) 185 mg/dL 70-110 H GLUCOSE BEDSIDE [id number] 12:35:00* Test Item Value Reference Range Interpretation Comme nts GLUCOSE BEDSIDE TESTING (radha t code = GLUBED) 181 mg/dL 70-110 H GLUCOSE BEDSIDE [id number] 12:35:00* Test Item Value Reference Range Interpretation Comme nts GLUCOSE BEDSIDE TESTING (radha t code = GLUBED) 138 mg/dL 70-110 H - XR CHEST 1 [id number] 09:06:00 [facility] 1965 Sex: F Name: LORI DELCUA [place] : 1965 Age/S: 55 / F [address] Unit #: [id number] Loc: [place] [address] Phys: Sergio Love Acct: [id number] Dis Date: Status: ADM IN PHONE #: [phone] Exam Date: 12/30/2020 0510 FAX #: Reason: COVID EXAMS: CPT: [id number] XR CHEST 1 V 94616 Fluoro Time: DAP (Gy m2): Air Kerma (mGy): EXAMINATION: - XR CHEST 1 V. LOCATION: S17. HISTORY: COVID. COMPARISON: Chest x-ray and CTA chest 12/27/20. FINDINGS: Examination is limited due to portable technique, patient body habitus and low lung volumes. Cardiac silhouette/Mediastinal contour: Prominence of cardiac silhouette. Lungs: Continued progression of bilateral scattered interstitial and groundglass airspace opacities. No large pleural effusion. Osseous Structures: Mild degenerative changes affect thoracic spine. IMPRESSION: Continued progression of bilateral scattered interstitial and groundglass airspace opacities. at 0906 Reported and signed by: Adam Matthew M.D. CC: Alfred Escobedo MD;Sergio Love PAGE 1 Signed Report Name: LORI DELUCA [place] : 1965 Age/S: 55 / F [id number] Unit #: [id number] Loc: [place] [address] Phys: Sergio Love AGACNP Acct: [id number] Dis Date: Status: ADM IN PHONE #: [phone] Exam Date: 12/30/2020 0510 FAX#: Reason: COVID EXAMS: CPT: [id number] XR CHEST 1 V 81348 Fluoro Time: DAP (Gy m2): Air Kerma (mGy): (Continued) Technologist: Linda Mayorga, RT(R)(CT) Trnscb Date/Time: 12/30/2020 (905) [email or web address] Orig Print D/T: S: 12/30/2020 (908) PAGE 2 Signed ReportCBC W/AUTO [id number] 06:31:00 * Test Item Value Reference Range Interpretation Comme [...] = MDIFF) NO DIFF/SCN CRITERIA GLUCOSE BEDSIDE [id number] 05:30:00* Test Item Value Reference Range Interpretation Comme nts GLUCOSE BEDSIDE TESTING (radha t code = GLUBED) 152 mg/dL 70-110 H BASIC METABOLIC [id number] 05:28:00* Test Item Value Reference Range Interpretation [...] code = LDH) 310 Unit/L 84-246 H [id number] 05:28:00* Test Item Value Reference Range Interpretation Comme nts FERRITIN (test code = WOOD) 227.4 NG/ML 3.0-105.0 H [id number] 05:07:00* Test Item Value Reference Range Interpretation Comme nts D-DIMER (test code = DDIMER) 552 ng/mLFEU 215-500 HH C REACTIVE [id number] 04:59:00* Test Item Value Reference Range Interpretation Comme nts C REACTIVE PROTEIN (test cod e = CRP) 18.800 MG/DL 0.000-0.3 H BASIC METABOLIC [id number] 04:58:00* Test Item Value Reference Range Interpretation [...] (t est code = LDH) Unit/L 84-246 [id number] 04:58:00* Test Item Value Reference Range Interpretation Comme nts FERRITIN (test code = WOOD) NG/ML 3.0-105.0 ARTERIAL BLOOD [id number] 23:44:00* Test Item Value Reference Range Interpretation [...] (test code = MODALL) Yes Circ.CHK POSITIVE PaO2/[id number] 23:44:00* Test Item Value Reference Range Interpretation Comme nts PaO2/FiO2 (test code = UUV8OCW8) mm/Hg See_Comment [Automated messa ge] The system which generated this result transmitted reference range: 200. The reference range was not used to interpret this result as normal/abnormal. ARTERIAL BLOOD [id number] 23:44:00* Test Item Value Reference Range Interpretation [...] (test code = MODALL) Yes Circ.CHK POSITIVE PaO2/[id number] 23:44:00* Test Item Value Reference Range Interpretation Comme [facility] PaO2/FiO2 (test code = BAJ6XKL5) 105.7 mm/Hg See_Comment L [Automated mess age] The system which generated this result transmitted reference range: 200. The reference range was not used to interpret this result as normal/abnormal. GLUCOSE BEDSIDE [id number] 23:13:00* Test Item Value Reference Range Interpretation Comme [facility] GLUCOSE BEDSIDE TESTING (radha t code = GLUBED) 133 mg/dL 70-110 H ARTERIAL BLOOD [id number] 20:44:00* Test Item Value Reference Range Interpretation Comme [facility] ARTERIAL BLOOD GAS PH (test [...] (test code = MODALL) Yes Circ.CHK POSITIVE PaO2/[id number] 20:44:00* Test Item Value Reference Range Interpretation Comme [facility] PaO2/FiO2 (test code = HBZ1XFX3) 101.4 mm/Hg See_Comment L [Automated mess age] The system which generated this result transmitted reference range: 200. The reference range was not used to interpret this result as normal/abnormal. ARTERIAL BLOOD [id number] 20:44:00* Test Item Value Reference Range Interpretation Comme [facility] ARTERIAL BLOOD GAS PH (test [...] (test code = MODALL) Yes Circ.CHK POSITIVE PaO2/[id number] 20:44:00* Test Item Value Reference Range Interpretation Comme nts PaO2/FiO2 (test code = QFJ4KUB1) mm/Hg See_Comment [Automated Lot78a ge] The system which generated this result transmitted reference range: 200. The reference range was not used to interpret this result as normal/abnormal. GLUCOSE BEDSIDE [id number] 18:59:00* Test Item Value Reference Range Interpretation Comme nts GLUCOSE BEDSIDE TESTING (radha t code = GLUBED) 122 mg/dL 70-110 H [id number] 13:48:00* Test Item Value Reference Range Interpretation Comme nts GLYCOSYLATED HEMOGLOBIN (HA1 C) (test code = GLYHGB) 5.9 % A1C 0.0-5.7 H ESTIMATED AVERAGE GLUCOSE (t est code = EAG) 123 MG/DLest CBC W/AUTO [id number] 12:38:00* Test Item Value Reference Range Interpretation [...] ode = MDIFF) YES DIFF/SCN CRITERIA WBC [id number] 12:38:00* Test Item Value Reference Range Interpretation [...] (test code = PLTMORPH) NORMAL CBC W/AUTO [id number] 12:37:00* Test Item Value Reference Range Interpretation [...] ode = MDIFF) YES DIFF/SCN CRITERIA WBC [id number] 12:37:00* Test Item Value Reference Range Interpretation Comme nts SEGMENTED NEUTROPHILS (test code = SEG) % 40-75 LYMPHOCYTE (test code = LYMPH) % 18.7-40.6 CBC W/AUTO [id number] 12:37:00* Test Item Value Reference Range Interpretation [...] ode = MDIFF) YES DIFF/SCN CRITERIA WBC [id number] 12:37:00* Test Item Value Reference Range Interpretation Comme nts SEGMENTED NEUTROPHILS (test code = SEG) % 40-75 LYMPHOCYTE (test code = LYMPH) % 18.7-40.6 COMPREHENSIVE METABOLIC [id number] 12:27:00* Test Item Value Reference Range Interpretation [...] ALKP) 51 Unit/L 45-117 N GLUCOSE BEDSIDE [id number] 12:13:00* Test Item Value Reference Range Interpretation Comme nts GLUCOSE BEDSIDE TESTING (radha t code = GLUBED) 149 mg/dL 70-110 H CBC W/AUTO [id number] 12:12:00* Test Item Value Reference Range Interpretation [...] ode = MDIFF) DIFF/SCN CRITERIA GLUCOSE BEDSIDE [id number] 08:22:00* Test Item Value Reference Range Interpretation Comme nts GLUCOSE BEDSIDE TESTING (radha t code = GLUBED) 103 mg/dL 70-110 N GLUCOSE BEDSIDE [id number] 20:27:00* Test Item Value Reference Range Interpretation Comme nts GLUCOSE BEDSIDE TESTING (radha t code = GLUBED) 169 mg/dL 70-110 H GLUCOSE BEDSIDE [id number] 16:42:00* Test Item Value Reference Range Interpretation Comme nts GLUCOSE BEDSIDE TESTING (radha t code = GLUBED) 188 mg/dL 70-110 H GLUCOSE BEDSIDE [id number] 11:46:00* Test Item Value Reference Range Interpretation Comme nts GLUCOSE BEDSIDE TESTING (radha t code = GLUBED) 147 mg/dL 70-110 H THROMBOPLASTIN TIME [id number] 10:50:00* Test Item Value Reference Range Interpretation Comme nts THROMBOPLASTIN TIME PARTIAL (test code = PTT) 38.1 SECONDS 26-35 H GLUCOSE BEDSIDE [id number] 07:56:00* Test Item Value Reference Range Interpretation Comme nts GLUCOSE BEDSIDE TESTING (radha t code = GLUBED) 184 mg/dL 70-110 H GLUCOSE BEDSIDE [id number] 23:43:00* Test Item Value Reference Range Interpretation Comme nts GLUCOSE BEDSIDE TESTING (radha t code = GLUBED) 172 mg/dL 70-110 H PROTHROMBIN [id number] 20:34:00* Test Item Value Reference Range Interpretation Comme nts PT PATIENT (test code = PTP) 14.6 SECONDS 9.3-12.9 H INTERNATIONAL NORMAL RATIO (test code = INR) 1.30 INR Unit 0.8-1.2 H THROMBOPLASTIN TIME [id number] 20:34:00* Test Item Value Reference Range Interpretation Comme nts THROMBOPLASTIN TIME PARTIAL (test code = PTT) >400 SECONDS 26-35 HH Previously repor layla result: RESULT CLARITZA SECONDSEdited by: VIKTORIYAT on 12/27/20~~~~~~~ ~~~~~~~~~~~~~~~~~~~~ ~~~~~~~~~~~~~ This is a CORRECTED REPORT - CTA CHEST FOR [id number] 20:23:00 [facility] 1965 Sex: F Name: LORI DELUCA [facility] : 1965 Age/S: 55 / F [address] [address] Unit #: [id number] Loc: [place] [address] Phys: Nancie Brandon MD Acct: [id number] Dis Date: Status: ADM IN PHONE #: [phone] Exam Date: 12/27/20202004 FAX #: Reason: SOB; elevated D-dimer with COVID PNAEXAMS: CPT: [id number] CTA CHEST FOR PE EXAM: CTA CHEST WITH CONTRAST. INDICATION: Covid pneumonia, shortness of breath COMPARISON: None available TECHNIQUE: Axial CTA imaging of the chest was obtained with administration of intravenous contrast. Coronal and sagittal MIP images were submittedfor review. IV contrast: 100 mL of Isovue-370 DLP: 748.43 mGy-cm FINDINGS: No filling defect is iden tified within the pulmonary vasculature. The main pulmonary [...] osseous abnormality of the thoracic spine. IMPRESSION: Nopulmonary embolus is identified. Patchy parenchymal opacities throughout both lungs consistent with multifocal pneumonia. LOCATION: B2 This CT exam was performed according to our departmental dose optimization program, which includes automated exposure control, adjustment of the mA and or kV according to patient size and/or use of iterative reconstruction technique. PAGE 1 Signed Report (CONTINUED) Name: [place] : 1965 Age/S: 55 / F [id number] [address] Unit #: [id number] Loc: [place] [address] Phys: Nancie Brandon MD Acct: [id number] Dis Date: Status: ADM IN PHONE #: [phone] Exam Date: 12/27/20202004 FAX #: Reason: SOB; elevated D-dimer with COVID PNA EXAMS: CPT: [id number] CTA CHEST FOR PE (Continued) at 2022 Reported and signed by: Janis Rendon M.D. CC: Nancie Brandon MD Technologist:Valentina Ching, RT(R); Tif CTDI: DLP: Trnscb Date/Time: 12/27/2020 (2022) 16 Orig Print D/T: S: 12/27/2020 (2025) PAGE 2 Signed ReportPROTHROMBIN [id number] 20:14:00* Test Item Value Reference Range Interpretation Comme nts PT PATIENT (test code = PTP) 14.6 SECONDS 9.3-12.9 H INTERNATIONAL NORMAL RATIO (test code = INR) 1.30 INR Unit 0.8-1.2 H THROMBOPLASTIN TIME [id number] 20:14:00* Test Item Value Reference Range Interpretation Comme nts THROMBOPLASTIN TIME PARTIAL (test code = PTT) RESULT CLARITZA SECONDS 26-35 L HEPATIC FUNCTION [id number] 19:59:00* Test Item Value Reference Range Interpretation [...] Unit/L 45-117 N Comment: Prior to remdesivir [id number] 19:59:00* Test Item Value Reference Range Interpretation [...] varyby method. Completed by Nursing: NOC REACTIVE [id number] 19:59:00* Test Item Value Reference Range Interpretation Comme [facility] C REACTIVE PROTEIN (test cod e = CRP) 17.000 MG/DL 0.000-0.3 H UR HCG [id number] 19:49:00* Test Item Value Reference Range Interpretation Comme [facility] UR HCG QUAL (test code = HCGQLU) NEGATIVE NEGATIVE ARTERIAL BLOOD [id number] 19:23:00* Test Item Value Reference Range Interpretation Comme [facility] ARTERIAL BLOOD GAS PH (test [...] (test code = MODALL) Yes Circ.CHK POSITIVE PaO2/[id number] 19:23:00* Test Item Value Reference Range Interpretation Comme [facility] PaO2/FiO2 (test code = ILM2NBO2) mm/Hg See_Comment [Automated Lot78a ge] The system which generated this result transmitted reference range: 200. The reference range was not used to interpret this result as normal/abnormal. ARTERIAL BLOOD [id number] 19:23:00* Test Item Value Reference Range Interpretation Comme [facility] ARTERIAL BLOOD GAS PH (test [...] (test code = MODALL) Yes Circ.CHK POSITIVE PaO2/[id number] 19:23:00* Test Item Value Reference Range Interpretation Comme nts PaO2/FiO2 (test code = JXM1RZT3) 216.7 mm/Hg See_Comment [Automated mess age] The system which generated this result transmitted reference range: 200. The reference range was not used to interpret this result as normal/abnormal. LACTIC [id number] 18:18:00* Test Item Value Reference Range Interpretation Comme nts LACTIC ACID (test code = LACT) 1.6 mmol/L 0.4-2.0 N BASIC METABOLIC [id number] 18:18:00* Test Item Value Reference Range Interpretation [...] CA) 8.8 MG/DL 8.5-10.1 N CBC W/AUTO [id number] 18:06:00* Test Item Value Reference Range Interpretation [...] MDIFF) NO DIFF/SCN CRITERIA VITAMIN D, 25 [id number] 00:00:00* Test Item Value Reference Range Interpretation Comme nts VITAMIN D, 25 OH (test code = 4958) 9 NG/ML Jordi BullockVITAMIN D, 25 [id number] 00:00:00* Test Item Value Reference Range Interpretation Comme nts VITAMIN D, 25 OH (test code = 4958) 9 NG/ML Jordi BullockVITAMIN D, 25 [id number] 00:00:00* Test Item Value Reference Range Interpretation Comme nts VITAMIN D, 25 OH (test code = 4958) 9 NG/ML Jordi BullockVITAMIN D, 25 [id number] 00:00:00* Test Item Value Reference Range Interpretation Comme nts VITAMIN D, 25 OH (test code = 4958) 9 NG/ML Jordi BullockVITAMIN D, 25 [id number] 00:00:00* Test Item Value Reference Range Interpretation Comme yon VITAMIN D, 25 OH (test code = 4958) 9 NG/ML Jordi BullockHEMOGLOBIN [id number] 00:00:00* Test Item Value Reference Range Interpretation Comme yon HEMOGLOBIN A1c (test code = 60596) 6.1 % Jordi BullockCBC W/AUTO [id number] 00:00:00* Test Item Value Reference Range Interpretation Comme yon WBC (test code = 1001) 10.4 K/UL [...] = 1015) 249 K/UL Jordi BullockCOMPREHENSIVE METABOLIC [id number] 00:00:00* Test Item Value Reference Range Interpretation Comme nts GLUCOSE (test code = 2217) 57 MG/DL BUN (test code = 2208) 14 MG/DL CREATININE (test code = 2214) 0.68 MG/DL eGFR AMER. (test cod e = 11657) 116 ML/MIN/1.73 eGFR NON- AMER. (test code = 64705) 100 ML/MIN/1.73 CALC BUN/CREAT (test code = [...] U/L Jordi BullockVITAMIN B 12 AND FOLIC [id number] 00:00:00* Test Item Value Reference Range Interpretation Comme [facility] VITAMIN B-12 (test code = 2840) 356 PG/ML FOLIC ACID (test code = 2695) 5.4 UG/L Jordi BullockHEMOGLOBIN [id number] 00:00:00* Test Item Value Reference Range Interpretation Comme [facility] HEMOGLOBIN A1c (test code = 95564) 6.1 % Jordi BullockCBC W/AUTO [id number] 00:00:00* Test Item Value Reference Range Interpretation Comme [facility] WBC (test code = 1001) 10.4 K/UL [...] = 1015) 249 K/UL Jordi BullockCOMPREHENSIVE METABOLIC [id number] 00:00:00* Test Item Value Reference Range Interpretation Comme nts GLUCOSE (test code = 2217) 57 MG/DL BUN (test code = 2208) 14 MG/DL CREATININE (test code = 2214) 0.68 MG/DL eGFR AMER. (test cod e = 19695) 116 ML/MIN/1.73 eGFR NON- AMER. (test code = 00305) 100 ML/MIN/1.73 CALC BUN/CREAT (test code = [...] U/L Jordi BullockVITAMIN B 12 AND FOLIC [id number] 00:00:00* Test Item Value Reference Range Interpretation Comme [facility] VITAMIN B-12 (test code = 2840) 356 PG/ML FOLIC ACID (test code = 2695) 5.4 UG/L Jordi BullockHEMOGLOBIN [id number] 00:00:00* Test Item Value Reference Range Interpretation Comme [facility] center HEMOGLOBIN A1c (test code = 33240) 6.1 % Jordi Kendrick KobeCBC W/AUTO [id number] 00:00:00* Test Item Value Reference Range Interpretation [...] = 1015) 249 K/UL Jordi BullockCOMPREHENSIVE METABOLIC [id number] 00:00:00* Test Item Value Reference Range Interpretation Comme nts GLUCOSE (test code = 2217) 57 MG/DL BUN (test code = 2208) 14 MG/DL CREATININE (test code = 2214) 0.68 MG/DL eGFR AMER. (test cod e = 32851) 116 ML/MIN/1.73 eGFR NON- AMER. (test code = 15770) 100 ML/MIN/1.73 CALC BUN/CREAT (test code = [...] U/L Jordi BullockVITAMIN B 12 AND FOLIC [id number] 00:00:00* Test Item Value Reference Range Interpretation Comme [facility] VITAMIN B-12 (test code = 2840) 356 PG/ML FOLIC ACID (test code = 2695) 5.4 UG/L Jordi BullockHEMOGLOBIN [id number] 00:00:00* Test Item Value Reference Range Interpretation Comme [facility] HEMOGLOBIN A1c (test code = 25475) 6.1 % Jordi BullockCBC W/AUTO [id number] 00:00:00* Test Item Value Reference Range Interpretation [...] = 1015) 249 K/UL Jordi BullockCOMPREHENSIVE METABOLIC [id number] 00:00:00* Test Item Value Reference Range Interpretation Comme nts GLUCOSE (test code = 2217) 57 MG/DL BUN (test code = 2208) 14 MG/DL CREATININE (test code = 2214) 0.68 MG/DL eGFR AMER. (test cod e = 46025) 116 ML/MIN/1.73 eGFR NON- AMER. (test code = 54411) 100 ML/MIN/1.73 CALC BUN/CREAT (test code = [...] U/L Jordi BullockVITAMIN B 12 AND FOLIC [id number] 00:00:00* Test Item Value Reference Range Interpretation Comme [facility] VITAMIN B-12 (test code = 2840) 356 PG/ML FOLIC ACID (test code = 2695) 5.4 UG/L Jordi BullockHEMOGLOBIN [id number] 00:00:00* Test Item Value Reference Range Interpretation Comme yon HEMOGLOBIN A1c (test code = 09651) 6.1 % Jordi BullockCBC W/AUTO [id number] 00:00:00* Test Item Value Reference Range Interpretation [...] = 1015) 249 K/UL Jordi BullockCOMPREHENSIVE METABOLIC [id number] 00:00:00* Test Item Value Reference Range Interpretation Comme nts GLUCOSE (test code = 2217) 57 MG/DL BUN (test code = 2208) 14 MG/DL CREATININE (test code = 2214) 0.68 MG/DL eGFR AMER. (test cod e = 33922) 116 ML/MIN/1.73 eGFR NON- AMER. (test code = 88030) 100 ML/MIN/1.73 CALC BUN/CREAT (test code = [...] U/L Jordi BullockVITAMIN B 12 AND FOLIC [id number] 00:00:00* Test Item Value Reference Range Interpretation Comme [facility] VITAMIN B-12 (test code = 2840) 356 PG/ML FOLIC ACID (test code = 2695) 5.4 UG/L Jordi BullockCOMPREHENSIVE METABOLIC [id number] 00:00:00* Test Item Value Reference Range Interpretation Comme nts GLUCOSE (test code = 2217) 84 MG/DL BUN (test code = 2208) 13 MG/DL CREATININE (test code = 2214) 0.63 MG/DL eGFR AMER. (test cod e = 60545) 120 ML/MIN/1.73 eGFR NON- AMER. (test code = 27778) 104 ML/MIN/1.73 CALC BUN/CREAT (test code = [...] code = 2219) 24 U/L Jordi BullockLIPID [id number] 00:00:00* Test Item Value Reference Range Interpretation Comme nts CHOLESTEROL (test code = 2210) 215 MG/DL TRIGLYCERIDES (test code = 2232) 176 MG/DL HDL CHOLESTEROL (test code = 2220) 49 MG/DL CALC LDL CHOL (test code = 2237) 131 MG/DL RISK RATIO LDL/HDL (test cod e = 223) 2.67 RATIO Jordi BullockHEMOGLOBIN [id number] 00:00:00* Test Item Value Reference Range Interpretation Comme nts HEMOGLOBIN A1c (test code = 79795) 5.5 % Jordi BullockCOMPREHENSIVE METABOLIC [id number] 00:00:00* Test Item Value Reference Range Interpretation Comme nts GLUCOSE (test code = 2217) 84 MG/DL BUN (test code = 2208) 13 MG/DL CREATININE (test code = 2214) 0.63 MG/DL eGFR AMER. (test cod e = 41419) 120 ML/MIN/1.73 eGFR NON- AMER. (test code = 53756) 104 ML/MIN/1.73 CALC BUN/CREAT (test code = [...] code = 2219) 24 U/L Jordi BullockLIPID [id number] 00:00:00* Test Item Value Reference Range Interpretation Comme nts CHOLESTEROL (test code = 2210) 215 MG/DL TRIGLYCERIDES (test code = 2232) 176 MG/DL HDL CHOLESTEROL (test code = 2220) 49 MG/DL CALC LDL CHOL (test code = 2237) 131 MG/DL RISK RATIO LDL/HDL (test cod e = 2238) 2.67 RATIO Jordi BullockHEMOGLOBIN [id number] 00:00:00* Test Item Value Reference Range Interpretation Comme nts HEMOGLOBIN A1c (test code = 65778) 5.5 % Jordi BullockCOMPREHENSIVE METABOLIC [id number] 00:00:00* Test Item Value Reference Range Interpretation Comme nts GLUCOSE (test code = 2217) 84 MG/DL BUN (test code = 2208) 13 MG/DL CREATININE (test code = 2214) 0.63 MG/DL eGFR AMER. (test cod e = 80832) 120 ML/MIN/1.73 eGFR NON- AMER. (test code = 81875) 104 ML/MIN/1.73 CALC BUN/CREAT (test code = [...] code = 2219) 24 U/L Jordi BullockLIPID [id number] 00:00:00* Test Item Value Reference Range Interpretation Comme nts CHOLESTEROL (test code = 2210) 215 MG/DL TRIGLYCERIDES (test code = 2232) 176 MG/DL HDL CHOLESTEROL (test code = 2220) 49 MG/DL CALC LDL CHOL (test code = 2237) 131 MG/DL RISK RATIO LDL/HDL (test cod e = 2238) 2.67 RATIO Jordi BullockHEMOGLOBIN [id number] 00:00:00* Test Item Value Reference Range Interpretation Comme nts HEMOGLOBIN A1c (test code = 21864) 5.5 % Jordi BullockCOMPREHENSIVE METABOLIC [id number] 00:00:00* Test Item Value Reference Range Interpretation Comme nts GLUCOSE (test code = 2217) 84 MG/DL BUN (test code = 2208) 13 MG/DL CREATININE (test code = 2214) 0.63 MG/DL eGFR AMER. (test cod e = 75025) 120 ML/MIN/1.73 eGFR NON- AMER. (test code = 98426) 104 ML/MIN/1.73 CALC BUN/CREAT (test code = [...] (test code = 2219) 24 U/L Jordi Kendrick AustinLIPID [id number] 00:00:00* Test Item Value Reference Range Interpretation Comme nts CHOLESTEROL (test code = 2210) 215 MG/DL TRIGLYCERIDES (test code = 2232) 176 MG/DL HDL CHOLESTEROL (test code = 2220) 49 MG/DL CALC LDL CHOL (test code = 2237) 131 MG/DL RISK RATIO LDL/HDL (test cod e = 2238) 2.67 RATIO Jordi Kendrick AustinHEMOGLOBIN [id number] 00:00:00* Test Item Value Reference Range Interpretation Comme nts HEMOGLOBIN A1c (test code = 57404) 5.5 % Jordi BullockCOMPREHENSIVE METABOLIC [id number] 00:00:00* Test Item Value Reference Range Interpretation Comme nts GLUCOSE (test code = 2217) 84 MG/DL BUN (test code = 2208) 13 MG/DL CREATININE (test code = 2214) 0.63 MG/DL eGFR AMER. (test cod e = 24000) 120 ML/MIN/1.73 eGFR NON- AMER. (test code = 89079) 104 ML/MIN/1.73 CALC BUN/CREAT (test code = [...] (test code = 2219) 24 U/L Jordi Kendrick AustinLIPID [id number] 00:00:00* Test Item Value Reference Range Interpretation Comme nts CHOLESTEROL (test code = 2210) 215 MG/DL TRIGLYCERIDES (test code = 2232) 176 MG/DL HDL CHOLESTEROL (test code = 2220) 49 MG/DL CALC LDL CHOL (test code = 2237) 131 MG/DL RISK RATIO LDL/HDL (test cod e = 2238) 2.67 RATIO Jordi BullockHEMOGLOBIN [id number] 00:00:00* Test Item Value Reference Range Interpretation Comme nts HEMOGLOBIN A1c (test code = 37228) 5.5 % Jordi Kendrick AustinCOMPREHENSIVE METABOLIC [id number] 00:00:00* Test Item Value Reference Range Interpretation Comme nts GLUCOSE (test code = 2217) 94 MG/DL BUN (test code = 2208) 16 MG/DL CREATININE (test code = 2214) 0.72 MG/DL eGFR AMER. (test cod e = 29544) 113 ML/MIN/1.73 eGFR NON- AMER. (test code = 43678) 98 ML/MIN/1.73 CALC BUN/CREAT (test code = [...] code = 2219) 17 U/L Jordi Kendrick KobeHEMOGLOBIN [id number] 00:00:00* Test Item Value Reference Range Interpretation Comme nts HEMOGLOBIN A1c (test code = 16831) 5.7 % Jordi Kendrick KobeCBC W/AUTO [id number] 00:00:00* Test Item Value Reference Range Interpretation [...] THYROX. BIND. CAPAC. (test c ode = 05041) 1.1 T4 (THYROXINE) (test code = 2819) 7.4 UG/DL CORRECTED T4 (FTI) (test cod e = 2820) 6.7 UG/DL TSH (test code = 2821) 2.750 UIU/ML Jordi BullockLIPID [id number] 00:00:00* Test Item Value Reference Range Interpretation Comme nts CHOLESTEROL (test code = 2210) 209 MG/DL TRIGLYCERIDES (test code = 2232) 294 MG/DL HDL CHOLESTEROL (test code = 2220) 41 MG/DL CALC LDL CHOL (test code = 2237) 109 MG/DL RISK RATIO LDL/HDL (test cod e = 2238) 2.66 RATIO Jordi BullockCOMPREHENSIVE METABOLIC [id number] 00:00:00* Test Item Value Reference Range Interpretation Comme nts GLUCOSE (test code = 2217) 94 MG/DL BUN (test code = 2208) 16 MG/DL CREATININE (test code = 2214) 0.72 MG/DL eGFR AMER. (test cod e = 63239) 113 ML/MIN/1.73 eGFR NON- AMER. (test code = 12486) 98 ML/MIN/1.73 CALC BUN/CREAT (test code = [...] code = 2219) 17 U/L Jordi BullockHEMOGLOBIN [id number] 00:00:00* Test Item Value Reference Range Interpretation Comme nts HEMOGLOBIN A1c (test code = 62549) 5.7 % Jordi BullockCBC W/AUTO [id number] 00:00:00* Test Item Value Reference Range Interpretation [...] THYROX. BIND. CAPAC. (test c ode = 20111) 1.1 T4 (THYROXINE) (test code = 2819) 7.4 UG/DL CORRECTED T4 (FTI) (test cod e = 2820) 6.7 UG/DL TSH (test code = 2821) 2.750 UIU/ML Jordi BullockLIPID [id number] 00:00:00* Test Item Value Reference Range Interpretation Comme nts CHOLESTEROL (test code = 2210) 209 MG/DL TRIGLYCERIDES (test code = 2232) 294 MG/DL HDL CHOLESTEROL (test code = 2220) 41 MG/DL CALC LDL CHOL (test code = 2237) 109 MG/DL RISK RATIO LDL/HDL (test cod e = 2238) 2.66 RATIO Jordi BullockCOMPREHENSIVE METABOLIC [id number] 00:00:00* Test Item Value Reference Range Interpretation Comme nts GLUCOSE (test code = 2217) 94 MG/DL BUN (test code = 2208) 16 MG/DL CREATININE (test code = 2214) 0.72 MG/DL eGFR AMER. (test cod e = 37950) 113 ML/MIN/1.73 eGFR NON- AMER. (test code = 08730) 98 ML/MIN/1.73 CALC BUN/CREAT (test code = [...] code = 2219) 17 U/L Jordi BullockHEMOGLOBIN [id number] 00:00:00* Test Item Value Reference Range Interpretation Comme nts HEMOGLOBIN A1c (test code = 18783) 5.7 % Jordi BullockCBC W/AUTO [id number] 00:00:00* Test Item Value Reference Range Interpretation [...] THYROX. BIND. CAPAC. (test c ode = 43577) 1.1 T4 (THYROXINE) (test code = 2819) 7.4 UG/DL CORRECTED T4 (FTI) (test cod e = 2820) 6.7 UG/DL TSH (test code = 2821) 2.750 UIU/ML Jordi BullockLIPID [id number] 00:00:00* Test Item Value Reference Range Interpretation Comme nts CHOLESTEROL (test code = 2210) 209 MG/DL TRIGLYCERIDES (test code = 2232) 294 MG/DL HDL CHOLESTEROL (test code = 2220) 41 MG/DL CALC LDL CHOL (test code = 2237) 109 MG/DL RISK RATIO LDL/HDL (test cod e = 2238) 2.66 RATIO Jordi BullockCOMPREHENSIVE METABOLIC [id number] 00:00:00* Test Item Value Reference Range Interpretation Comme nts GLUCOSE (test code = 2217) 94 MG/DL BUN (test code = 2208) 16 MG/DL CREATININE (test code = 2214) 0.72 MG/DL eGFR AMER. (test cod e = 49221) 113 ML/MIN/1.73 eGFR NON- AMER. (test code = 40598) 98 ML/MIN/1.73 CALC BUN/CREAT (test code = [...] code = 2219) 17 U/L Jordi BullockHEMOGLOBIN [id number] 00:00:00* Test Item Value Reference Range Interpretation Comme nts HEMOGLOBIN A1c (test code = 08530) 5.7 % Jordi BullockCBC W/AUTO [id number] 00:00:00* Test Item Value Reference Range Interpretation [...] THYROX. BIND. CAPAC. (test c ode = 01014) 1.1 T4 (THYROXINE) (test code = 2819) 7.4 UG/DL CORRECTED T4 (FTI) (test cod e = 2820) 6.7 UG/DL TSH (test code = 2821) 2.750 UIU/ML Jordi Kendrick KobeLIPID [id number] 00:00:00* Test Item Value Reference Range Interpretation Comme nts CHOLESTEROL (test code = 2210) 209 MG/DL TRIGLYCERIDES (test code = 2232) 294 MG/DL HDL CHOLESTEROL (test code = 2220) 41 MG/DL CALC LDL CHOL (test code = 2237) 109 MG/DL RISK RATIO LDL/HDL (test cod e = 2238) 2.66 RATIO Jordi BullockCOMPREHENSIVE METABOLIC [id number] 00:00:00* Test Item Value Reference Range Interpretation Comme nts GLUCOSE (test code = 2217) 94 MG/DL BUN (test code = 2208) 16 MG/DL CREATININE (test code = 2214) 0.72 MG/DL eGFR AMER. (test cod e = 65830) 113 ML/MIN/1.73 eGFR NON- AMER. (test code = 81730) 98 ML/MIN/1.73 CALC BUN/CREAT (test code = [...] code = 2219) 17 U/L Jordi BullockHEMOGLOBIN [id number] 00:00:00* Test Item Value Reference Range Interpretation Comme yon HEMOGLOBIN A1c (test code = 06135) 5.7 % Jordi BullockCBC W/AUTO [id number] 00:00:00* Test Item Value Reference Range Interpretation [...] THYROX. BIND. CAPAC. (test c ode = 26835) 1.1 T4 (THYROXINE) (test code = 2819) 7.4 UG/DL CORRECTED T4 (FTI) (test cod e = 2820) 6.7 UG/DL TSH (test code = 2821) 2.750 UIU/ML Jordi BullockLIPID [id number] 00:00:00* Test Item Value Reference Range Interpretation Comme nts CHOLESTEROL (test code = 2210) 209 MG/DL TRIGLYCERIDES (test code = 2232) 294 MG/DL HDL CHOLESTEROL (test code = 2220) 41 MG/DL CALC LDL CHOL (test code = 2237) 109 MG/DL RISK RATIO LDL/HDL (test cod e = 2238) 2.66 RATIO Jordi BullockCOMPREHENSIVE METABOLIC [id number] 00:00:00* Test Item Value Reference Range Interpretation Comme nts GLUCOSE (test code = 2217) 86 MG/DL BUN (test code = 2208) 12 MG/DL CREATININE (test code = 2214) 0.70 MG/DL eGFR AMER. (test cod e = 94245) 117 ML/MIN/1.73 eGFR NON- AMER. (test code = 61926) 101 ML/MIN/1.73 CALC BUN/CREAT (test code = [...] code = 2219) 17 U/L Jordi F AustinCOMPREHENSIVE METABOLIC [id number] 00:00:00* Test Item Value Reference Range Interpretation Comme nts GLUCOSE (test code = 2217) 86 MG/DL BUN (test code = 2208) 12 MG/DL CREATININE (test code = 2214) 0.70 MG/DL eGFR AMER. (test cod e = 79840) 117 ML/MIN/1.73 eGFR NON- AMER. (test code = 31948) 101 ML/MIN/1.73 CALC BUN/CREAT (test code = [...] code = 2219) 17 U/L Jordi F AustinCOMPREHENSIVE METABOLIC [id number] 00:00:00* Test Item Value Reference Range Interpretation Comme nts GLUCOSE (test code = 2217) 86 MG/DL BUN (test code = 2208) 12 MG/DL CREATININE (test code = 2214) 0.70 MG/DL eGFR AMER. (test cod e = 47786) 117 ML/MIN/1.73 eGFR NON- AMER. (test code = 66994) 101 ML/MIN/1.73 CALC BUN/CREAT (test code = [...] (test code = 2219) 17 U/L Jordi Aroldo WhittakerCOMPREHENSIVE METABOLIC [id number] 00:00:00* Test Item Value Reference Range Interpretation Comme nts GLUCOSE (test code = 2217) 86 MG/DL BUN (test code = 2208) 12 MG/DL CREATININE (test code = 2214) 0.70 MG/DL eGFR AMER. (test cod e = 97173) 117 ML/MIN/1.73 eGFR NON- AMER. (test code = 97620) 101 ML/MIN/1.73 CALC BUN/CREAT (test code = [...] = 2219) 17 U/L Jordi BullockCOMPREHENSIVE METABOLIC [id number] 00:00:00* Test Item Value Reference Range Interpretation Comme nts GLUCOSE (test code = 2217) 86 MG/DL BUN (test code = 2208) 12 MG/DL CREATININE (test code = 2214) 0.70 MG/DL eGFR AMER. (test cod e = 47799) 117 ML/MIN/1.73 eGFR NON- AMER. (test code = 90816) 101 ML/MIN/1.73 CALC BUN/CREAT (test code = [...] Bullock Notes Date/Time Note Provider Source Jordi Gomez [facility]2024-09-06 00:00:00 Jordi Gomez [facility]2024-06-04 00:00:00 Jordi Gomez [facility]2024-05-08 00:00:00 Jordi Gomez [facility]2024-05-08 00:00:00 Jordi Gomez [facility]2021-06-22 15:29:00 [facility] ([facility]) Infectious Dis. Progress Note REPORT#:[id number] REPORT STATUS: Signed DATE:01/06/21 TIME:152 PATIENT: LORI DELUCA UNIT #: [id number] ROOM/BED: [place] [address] : [birth year] AGE: 55 SEX: F ATTEND: [...] for this consult. at 1534 RPT #: [id number] END OF REPORT [id number] 15:29:00 [facility] Infectious Dis. Progress Note REPORT#:[id number] REPORT STATUS: Signed DATE:01/06/21 TIME:152 PATIENT: LORI DELUCA UNIT #: [id number] ROOM/BED: [place] [address] : [birth year] AGE: 55 SEX: F ATTEND: [...] off -- thank you for this consult. Magdi rosaRudy 01/06/21 1742: Attestations Attestation needed: supervising physician Physician Attestation Agree w/findings plan: Agree with the findings and plan as documented by TERE Hernandez. Pt with morbid obesity who developed severe covid-19. She has markedly improved and her O2 requirements have significantly decreased. Continue steroids per pulmonary. Will sign off. Please call us if there are any questions. at 1534 RPT #: [id number] END OF REPORT [id number] 15:29:00 [facility] ([facility]) Infectious Dis. Progress Note REPORT#:[id number] REPORT STATUS: Signed DATE:01/06/21 TIME:152 PATIENT: LORI DELUCA UNIT #: [id number] ROOM/BED: [place] [address] : 67 AGE: 55 SEX: F ATTEND: [...] you for this consult. Rudy Aguilar 01/06/21 4776: Attestations Attestation needed: supervising physician Physician Attestation Agree w/findings plan: Agree with the findings and plan as documented by TERE Hernandez. Pt with morbid obesity who developed severe covid-19. She has markedly improved and her O2 requirements have significantly decreased. Continue steroids per pulmonary. Will sign off. Please call us if there are any questions. at 1534 at 1744 RPT #: [id number] END OF REPORT [id number] 13:17:00 [facility]) Pulmonology Progress Note REPORT#:[id number] REPORT STATUS: Signed DATE:01/06/21 TIME:1317 PATIENT: LORI DELUCA UNIT #: [id number] ROOM/BED: [place] [address] : 67 AGE: 55 SEX: F ATTEND: [...] bowel sounds Musculoskeletal: full range of motion Neuro/MIXER LEVER OPERATOR: alert, oriented X 3, CNII-XII intact Results [...] dexamethasone, home O2. at 1502 RPT #: [id number] END OF REPORT [id number] 13:17:00 [facility] ([facility]) Pulmonology Progress Note REPORT#:[id number] REPORT STATUS: Signed DATE:01/06/21 TIME:1316 PATIENT: LORI DELUCA UNIT #: [id number] ROOM/BED: [place] [address] : 67 AGE: 55 SEX: F ATTEND: [...] bowel sounds Musculoskeletal: full range of motion Neuro/MIXER LEVER OPERATOR: alert, oriented X 3, CNII-XII intact Results [...] Hospital course to date: evaluated, discussed with CLOTHES WRINGER . discussed plan Agree with above at 1502 RPT #: [id number] END OF REPORT [id number] 13:17:00 [facility] ([facility]) Pulmonology Progress Note REPORT#:[id number] REPORT STATUS: Signed DATE:01/06/21 TIME:1317 PATIENT: LORI DELUCA UNIT #: [id number] ROOM/BED: [place] [address] : 69 AGE: 55 SEX: F ATTEND: [...] bowel sounds Musculoskeletal: full range of motion Neuro/MIXER LEVER OPERATOR: alert, oriented X 3, CNII-XII intact Results [...] Hospital course to date: evaluated, discussed with CLOTHES WRINGER . discussed plan Agree with above at 1502 RPT #: [id number] END OF REPORT [id number] 13:17:00 [facility] ([facility]) Pulmonology Progress Note REPORT#:[id number] REPORT STATUS: Signed DATE:01/06/21 TIME:1316 PATIENT: LORI DELUCA UNIT #: [id number] ROOM/BED: [place] [address] : [birth year] AGE: 55 SEX: F ATTEND: [...] bowel sounds Musculoskeletal: full range of motion Neuro/MIXER LEVER OPERATOR: alert, oriented X 3, CNII-XII intact Results Findings/Data: Laboratory Tests 01/06 01/06 01/05 01/05 1125 0718 2014 1625 Chemistry POC Glucose (70 - 110 mg/dL) [...] Hospital course to date: evaluated, discussed with CLOTHES WRINGER . discussed plan Agree with above at 1502 at 2321 [facility] #: [id number] END OF REPORT [id number] 10:55:00 [facility] Richar/Oncology Progress Note REPORT#:[id number] REPORT STATUS: Signed DATE:01/06/21 TIME:1055 PATIENT: LORI DELUCA UNIT #: [id number] ROOM/BED: [place] [address] : 69 AGE: 55 SEX: F ATTEND: [...] soft Extremities: moves all, no peripheral edema Neuro/MIXER LEVER OPERATOR: alert, oriented X 3 skin intact Current [...] Will sign off. at 1057 RPT #: [id number] END OF REPORT [id number] 16:04:00 [facility] ([facility]) Infectious Dis. Progress Note REPORT#:[id number] REPORT STATUS: Signed DATE:01/05/21 TIME:1604 PATIENT: LORI DELUCA UNIT #: [id number] ROOM/BED: [facility] : 69 AGE: 55 SEX: F ATTEND: [...] standpoint. Thank you for this consult. at 6114 RPT #: [id number] END OF REPORT [id number] 16:04:00 [facility] ([facility]) Infectious Dis. Progress Note REPORT#:[id number] REPORT STATUS: Signed DATE:01/05/21 TIME:1604 PATIENT: LORI DELUCA UNIT #: [id number] ROOM/BED: [place] [address] : [birth year] AGE: 55 SEX: F ATTEND: [...] you for this consult. Rudy Aguilar 01/05/21 6705: Attestations Attestation needed: supervising physician Physician Attestation Agree w/findings plan: Agree with the findings and plan as documented by TERE Hernandez. Pt with severe covid-19 who has markedly improved, O2 requirements have been decreasing. Plan is to wean o2 as tolerated and steroids per pulmonary. at 1745 RPT #: [id number] END OF REPORT [id number] 16:04:00 [facility] Infectious Dis. Progress Note REPORT#:[id number] REPORT STATUS: Signed DATE:01/05/21 TIME:1604 PATIENT: LORI DELUCA UNIT #: [id number] ROOM/BED: [place] [address] : [birth year] AGE: 55 SEX: F ATTEND: [...] steroids per pulmonary. at 1745 at 1856 [facility] #: [id number] END OF REPORT [id number] 12:44:00 [facility] ([facility]) Hospitalist Progress Note REPORT#:[id number] REPORT STATUS: Signed DATE:01/05/21 TIME:1244 PATIENT: LORI DELUCA UNIT #: [id number] ROOM/BED: [place] [address] : [birth year] AGE: 55 SEX: F ATTEND: [...] 2024 36.4 59 20 105/62 76.7 87 01/04 2000 Nasal 8 cannula 01/04 1645 62 [...] no guarding Extremities: moves all, no edema Neuro/MIXER LEVER OPERATOR: alert, oriented X 3, normal speech, no [...] plan Next of kin sister Madelyn ferguson [phone] 12/28/2020 Covid 19 Pneumonia COPD HTN DM [...] has no official past medical power of insurance defense attorney but and next of kin is her [...] to 10 L, will transfer to telemetry [facility] today CODE STATUS Full code 01/02/2021 - [...] has no official past medical power of insurance defense attorney but and next of kin is her sister Madelyn Ferguson which she told me can make decisions for her if he ever becomes incapacitated. at 1246 RPT #: [id number] END OF REPORT [id number] 12:30:00 [facility] ([facility]) Pulmonology Progress Note REPORT#:[id number] REPORT STATUS: Signed DATE:01/05/21 TIME:1230 PATIENT: LORI DELUCA UNIT #: [id number] ROOM/BED: [place] [address] : 69 AGE: 55 SEX: F ATTEND: [...] 8 01/05 08 Pulse Ox 91 01/05 08 B/P 109/69 01/05 08 B/P Mean 82.5 01/05 08 Temp 36.4 01/05 08 Pulse 84 01/05 0805 Resp 20 01/05 08 FiO2 48 01/04 [...] bowel sounds Musculoskeletal: full range of motion Neuro/MIXER LEVER OPERATOR: alert, oriented X 3, CNII-XII intact Results Findings/Data: Laboratory Tests 01/05/2143: [Embedded Image Not Available] 01/05/21 0600: [Embedded Image Not Available] Laboratory Tests 01/05 01/05 01/05 01/04 01/04 1205 0716 0600 2024 1640 Chemistry POC Glucose (70 - 110 [...] pulmonary opacities. Location: R16 Impression By: Gertrude Sandoval M.D. Diagnosis, Assessment Plan Hospital course [...] SCDs Full code at 1233 RPT #: [id number] END OF REPORT [id number] 12:30:00 [facility] ([facility]) Pulmonology Progress Note REPORT#:[id number] REPORT STATUS: Signed DATE:01/05/21 TIME:1230 PATIENT: LORI DELUCA UNIT #: [id number] ROOM/BED: [place] [address] : 69 AGE: 55 SEX: F ATTEND: [...] O2 Delivery High flow nasal cannula 01/05 08 O2 Flow Rate 8 01/05 0811 Pulse Ox 91 01/05 08 B/P 109/69 01/05 08 B/P Mean 82.5 01/05 08 Temp 36.4 01/05 08 Pulse 84 01/05 0805 Resp 20 01/05 08 FiO2 48 01/04 [...] bowel sounds Musculoskeletal: full range of motion Neuro/MIXER LEVER OPERATOR: alert, oriented X 3, CNII-XII intact Results Findings/Data: Laboratory Tests 01/05/2143: [Embedded Image Not Available] 01/05/21 06: [Embedded Image Not Available] Laboratory Tests 01/05 [...] pulmonary opacities. Location: R16 Impression By: Gertrude Sandoval M.D. Diagnosis, Assessment Plan Hospital course [...] Hospital course to date: evaluated, discussed with CLOTHES WRINGER . discussed plan Agree with above at 1233 at 4100 RPT #: [id number] END OF REPORT [id number] 09:54:00 [facility] ([facility]) Richar/Oncology Progress Note REPORT#:[id number] REPORT STATUS: Signed DATE:01/05/21 TIME:953 PATIENT: LORI DELUCA UNIT #: [id number] ROOM/BED: [place] [address] : [birth year] AGE: 55 SEX: F ATTEND: Alfred Escobedo MD ADM AUTHOR: Yanet Lim MD * ALL edits or amendments must be made on the electronic/computer document * Subjective Chief Complaint: Events noted SOB improving No overt bleeding Objective Physical Exam VS: Vital Signs Date Temp Pulse Resp B/P B/P Mean Pulse Ox FiO2 01/04-01/05 97.5 52-84 17- 105-143/62-79 76.7-94.1 84-97 48 Last Documented: Result Date Time O2 Delivery High flow nasal cannula 01/05 08 O2 Flow Rate 8 01/05 08 Pulse Ox 91 01/05 08 B/P 109/69 01/05 805 B/P Mean 82.5 01/05 08 Temp 97.5 01/05 08 Pulse 84 01/05 0805 Resp 20 01/05 08 FiO2 48 01/04 1505 General appearance: respiratory support, alert, awake, oriented HEENT: anicteric, atraumatic, pupils reactive to light Cardiovascular: regular rate and rhythm, normal heart sounds Respiratory: aerating well, clear to auscultation Abdomen: non-tender, normal bowel sounds, soft Extremities: moves all, no peripheral edema Neuro/MIXER LEVER OPERATOR: alert, oriented X 3 skin intact Current [...] (0.8 - 1.2 INR Unit) 1.05 PTT ([place]) (26 - 35 SECONDS) 38.4 H PT Patient/Control Mix (9.3 - 12.9 SECONDS) 11.8 Laboratory Tests 01/05 06/ 0600 1000 Hematology WBC (3.5 - 11.0 [...] (Auto) (20.5 - 51.1 %) 11.0 L [place] % (Auto) (1.7 - 9.3 %) 4.5 Eos % (Auto) (0.0 - 6.0 %) 0.0 Baso % (Auto) (0.0 - 2.0 %) 0.2 Neut # (Auto) (1.8 - 7.6 K/mm3) 9.6 H Lymph # (Auto) (0.6 - 3.2 K/mm3) 1.3 [place]t # (Auto) (0.3 - 1.1 K/mm3) 0.6 [...] Follow up on pending labs at 0957 RPT #: [id number] END OF REPORT [id number] 14:25:00 [facility] ([facility]) Pulmonology Progress Note REPORT#:[id number] REPORT STATUS: Signed DATE:01/04/21 TIME:5 PATIENT: LORI DELUCA UNIT #: [id number] ROOM/BED: [place] [address] : 67 AGE: 55 SEX: F ATTEND: [...] no edema Musculoskeletal: full range of motion Neuro/MIXER LEVER OPERATOR: alert, oriented X 3, CNII-XII intact Psychiatry: [...] 08/21 full code at 1431 RPT #: [id number] END OF REPORT [id number] 14:25:00 [facility] ([facility]) Pulmonology Progress Note REPORT#:[id number] REPORT STATUS: Signed DATE:01/04/21 TIME:1424 PATIENT: LORI DELUCA UNIT #: [id number] ROOM/BED: [place] [address] : 67 AGE: 55 SEX: F ATTEND: [...] no edema Musculoskeletal: full range of motion Neuro/MIXER LEVER OPERATOR: alert, oriented X 3, CNII-XII intact Psychiatry: [...] Unit/L) TSH (0.340 - 4.820 mcIU/ML) 1.460 01/032 1613 Chemistry POC Glucose (70 - 110 [...] above at 1431 at 1702 RPT #: [id number] END OF REPORT [id number] 11:42:00 [facility] ([facility]) Hospitalist Progress Note REPORT#:[id number] REPORT STATUS: Signed DATE:01/04/21 TIME:1142 PATIENT: LORI DELUCA UNIT #: [id number] ROOM/BED: [place] [address] : 67 AGE: 55 SEX: F ATTEND: [...] no guarding Extremities: moves all, no edema 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 at 1147 RPT #: [id number] END OF REPORT [id number] 10:50:00 [facility] ([facility]) Infectious Dis. Progress Note REPORT#:[id number] REPORT STATUS: Signed DATE:01/04/21 TIME:1050 PATIENT: LORI DELUCA UNIT #: [id number] ROOM/BED: [place] [address] : 67 AGE: 55 SEX: F ATTEND: [...] normal capillary refill, no clubbing, no cyanosis Neuro/MIXER LEVER OPERATOR: alert, oriented X 3 Skin: normal color, [...] O2 as tolerated. at 1052 RPT #: [id number] END OF REPORT [id number] 09:45:[id number] [facility] [address] [place] [address] PATIENT NAME: LORI DELUCA ADMIT DATE: 12/27/20 ACCOUNT NO: [id number] ROOM NO: [facility] AGE: 55 REPORT TYPE: CONSULTATION SEX: F ADMITTING PHYSICIAN: Alfred Escobedo MD ATTENDING PHYSICIAN: Alfred Escobedo MD CONSULTATION DATE: CONSULTING PHYSICIAN: Yanet Lim MD REASON FOR CONSULTATION: Thrombocytopenia. HISTORY OF PRESENT ILLNESS: Ms. Deluca is a 55-year-old female who was transferred from [facility] after she was diagnosed with COVID-19 pneumonia [...] follow. Dictated By: Yanet Lim MD WT: CON:LQING/DEBRA/YON Conf#: [id number]/DID#: [id number] Authenticated by Yanet Lim MD On 02/11/2021 10:42:15 AM at 1042 PATIENT NAME: LORI DELUCA 13:19:00 [facility] Pulmonology Progress Note REPORT#:[id number] REPORT STATUS: Signed DATE:01/03/21 TIME:1319 PATIENT: LORI DELUCA UNIT #: [id number] [place]BED: [place] : 67 AGE: 55 SEX: F ATTEND: [...] no edema Musculoskeletal: full range of motion Neuro/MIXER LEVER OPERATOR: alert, oriented X 3, CNII-XII intact Psychiatry: [...] 110 mg/dL) 208 H Laboratory Tests 01/03 044 Hematology WBC (3.5 - 11.0 K/mm3) 11.2 [...] (Auto) (20.5 - 51.1 %) 8.4 L [place] % (Auto) (1.7 - 9.3 %) 4.5 Eos % (Auto) (0.0 - 6.0 %) 0.0 Baso % (Auto) (0.0 - 2.0 %) 0.3 Neut # (Auto) (1.8 - 7.6 K/mm3) 9.2 H Lymph # (Auto) (0.6 - 3.2 K/mm3) 0.9 [place] # (Auto) (0.3 - 1.1 K/mm3) 0.5 [...] diamox full code at 1326 RPT #: [id number] END OF REPORT [id number] 13:19:00 [facility] ([facility]) Pulmonology Progress Note REPORT#:[id number] REPORT STATUS: Signed DATE:01/03/21 TIME:1318 PATIENT: LORI DELUCA UNIT #: [id number] ROOM/BED: [place] [address] : 67 AGE: 55 SEX: F ATTEND: [...] no edema Musculoskeletal: full range of motion Neuro/MIXER LEVER OPERATOR: alert, oriented X 3, CNII-XII intact Psychiatry: normal affect, normal judgment/insight Results Findings/Data: Laboratory Tests 01/03/21 0445: [Embedded Image Not Available] Laboratory Tests 01/03 01/03 01/03 01/02 1203 4545 [id number] 1999 Chemistry Sodium (134 - 147 mmol/L) [...] (Auto) (20.5 - 51.1 %) 8.4 L [place] % (Auto) (1.7 - 9.3 %) 4.5 Eos % (Auto) (0.0 - 6.0 %) 0.0 Baso % (Auto) (0.0 - 2.0 %) 0.3 Neut # (Auto) (1.8 - 7.6 K/mm3) 9.2 H Lymph # (Auto) (0.6 - 3.2 K/mm3) 0.9 [place] # (Auto) (0.3 - 1.1 K/mm3) 0.5 [...] L at 1326 at 1638 RPT #: [id number] END OF REPORT [id number] 12:16:00 [facility] ([facility] Hospitalist Progress Note REPORT#:[id number] REPORT STATUS: Signed DATE:01/03/21 TIME:1216 PATIENT: LORI DELUCA UNIT #: [id number] ROOM/BED: [place] [address] : 67 AGE: 55 SEX: F ATTEND: [...] 01/03 1001 57 35 135/69 96 95 06/19 0930 65 36 93 06/19 0900 85 29 140/86 107 97 06/19 0858 97 High flow 12 64 nasal cannula 06/ 0830 High flow 12 64 nasal cannula 06/19 0830 48 22 96 06/19 0800 86 29 135/77 100 95 06/19 0745 85 32 94 06/19 0744 36.4 06/19 0730 68 29 91 06/19 0715 57 26 99 06/19 0700 58 22 142/69 96 100 06/19 0500 51 92 06/19 0445 57 95 06/19 0430 77 06/19 0423 36.5 06/19 0415 93 06/19 0400 55 23 125/73 93 06/19 0300 94 06/19 0245 56 94 06/19 0230 59 18 94 06/19 0215 54 94 06/19 0200 55 136/80 94 06/19 0145 55 23 95 06/19 0130 53 94 06/19 0124 57 24 146/80 96 06/19 0115 54 26 96 06/19 0100 65 25 97 06/19 0038 50 96 06/19 0036 36.6 06/19 0030 22 06/19 0015 64 95 06/19 0000 55 06/18 2311 High flow 12 68 nasal cannula 01/02 2100 118/72 87 01/02 2022 55 27 95 01/02 2015 58 26 98 06/18 2006 36.6 06/18 2000 121/80 93 06/1999 57 24 100 06/18 1945 61 23 100 06/18 1930 56 26 100 06/18 1926 100 High flow 12 68 nasal cannula 01/02 1915 60 0618 1900 126/86 99 06/18 1900 61 100 06/18 1845 59 06/18 1830 63 36 97 06/18 1800 62 21 96 06/18 1730 65 36 97 06/18 1712 67 25 136/60 86 97 06/18 1617 36.5 0618 1615 58 40 99 06/18 1600 53 38 98 06/18 1530 54 43 91 06/18 1500 58 36 93 06/18 1430 66 31 94 06/18 1400 55 37 95 06/18 1345 60 34 94 06/18 1315 75 51 90 /18 1300 79 37 88 24 hour I [...] no guarding Extremities: moves all, no edema Neuro/MIXER LEVER OPERATOR: alert, oriented X 3, normal speech, no [...] plan Next of kin sister Madelyn ferguson [phone] 12/28/2020 Covid 19 Pneumonia COPD HTN DM [...] has no official past medical power of insurance defense attorney but and next of kin is her [...] has no official past medical power of insurance defense attorney but and next of kin is her sister Madelyn Ferguson which she told me can make decisions for her if he ever becomes incapacitated. at 1223 RPT #: [id number] END OF REPORT [id number] 14:15:00 [facility] ([facility]) Pulmonology Progress Note REPORT#:[id number] REPORT STATUS: Signed DATE:01/02/21 TIME:1415 PATIENT: LORI DELUCA UNIT #: [id number] ROOM/BED: [place] [address] : 67 AGE: 55 SEX: F ATTEND: [...] sounds Extremities: edema, no cyanosis, no edema Neuro/MIXER LEVER OPERATOR: alert, oriented X 3, CNII-XII intact Results [...] (Auto) (20.5 - 51.1 %) 8.9 L [place] % (Auto) (1.7 - 9.3 %) 4.9 Eos % (Auto) (0.0 - 6.0 %) 0.0 Baso % (Auto) (0.0 - 2.0 %) 0.3 Neut # (Auto) (1.8 - 7.6 K/mm3) 7.5 Lymph # (Auto) (0.6 - 3.2 K/mm3) 0.8 [place] # (Auto) (0.3 - 1.1 K/mm3) 0.5 [...] GI prophylaxis IMCU at 1707 RPT #: [id number] END OF REPORT [id number] 14:15:00 [facility] ([facility]) Pulmonology Progress Note REPORT#:[id number] REPORT STATUS: Signed DATE:01/02/21 TIME:1414 PATIENT: LORI DELUCA UNIT #: [id number] ROOM/BED: [place] [address] : 67 AGE: 55 SEX: F ATTEND: [...] sounds Extremities: edema, no cyanosis, no edema Neuro/MIXER LEVER OPERATOR: alert, oriented X 3, CNII-XII intact Results [...] (Auto) (20.5 - 51.1 %) 8.9 L [place] % (Auto) (1.7 - 9.3 %) 4.9 Eos % (Auto) (0.0 - 6.0 %) 0.0 Baso % (Auto) (0.0 - 2.0 %) 0.3 Neut # (Auto) (1.8 - 7.6 K/mm3) 7.5 Lymph # (Auto) (0.6 - 3.2 K/mm3) 0.8 [place] # (Auto) (0.3 - 1.1 K/mm3) 0.5 [...] Diamox at 1707 at 1832 RPT #: [id number] END OF REPORT [id number] 14:12:00 [facility] ([facility]) Hospitalist Progress Note REPORT#:[id number] REPORT STATUS: Signed DATE:01/02/21 TIME:1412 PATIENT: LORI DELUCA UNIT #: [id number] ROOM/BED: [place] [address] : 67 AGE: 55 SEX: F ATTEND: [...] no guarding Extremities: moves all, no edema Neuro/MIXER LEVER OPERATOR: alert, oriented X 3, normal speech, no [...] plan Next of kin sister Madelyn ferguson [phone] 12/28/2020 Covid 19 Pneumonia COPD HTN DM [...] has no official past medical power of insurance defense attorney but and next of kin is her sister Madelyn eFrguson which she told me can make decisions [...] to 10 L[facility] CODE STATUS Full code 01/02/2021 - [...] has no official past medical power of insurance defense attorney but and next of kin is her sister Madelyn Ferguson which she told me can make decisions for her if he ever becomes incapacitated. at 1414 RPT #: [id number] END OF REPORT [id number] 11:28:00 [facility] ([facility] Infectious Dis. Progress Note REPORT#:[id number] REPORT STATUS: Signed DATE:01/02/21 TIME:1128 PATIENT: LORI DELUCA UNIT #: [id number] ROOM/BED: [place] [address] : 67 AGE: 55 SEX: F ATTEND: [...] O2 as tolerated. at 1255 RPT #: [id number] END OF REPORT [id number] 12:15:00 [facility] Pulmonology Progress Note REPORT#:[id number] REPORT STATUS: Signed DATE:01/01/21 TIME:1215 PATIENT: LORI DELUCA UNIT #: [id number] ROOM/BED: [place] [address] : 67 AGE: 55 SEX: F ATTEND: [...] sounds Extremities: edema, no cyanosis, no edema Neuro/MIXER LEVER OPERATOR: alert, oriented X 3, CNII-XII intact Results [...] (Auto) (20.5 - 51.1 %) 8.0 L [place] % (Auto) (1.7 - 9.3 %) 5.6 Eos % (Auto) (0.0 - 6.0 %) 0.1 Baso % (Auto) (0.0 - 2.0 %) 0.2 Neut # (Auto) (1.8 - 7.6 K/mm3) 7.5 Lymph # (Auto) (0.6 - 3.2 K/mm3) 0.7 [place] # (Auto) (0.3 - 1.1 K/mm3) 0.5 [...] Report Impression - Status: SIGNED Entered: 01/01/2021 9607 IMPRESSION: Essentially unchanged bilateral scattered interstitial and groundglass airspace opacities. Impression By: DakotahANSMarley Matthew M.D. Diagnosis, Assessment Plan Hospital course [...] GI prophylaxis IMCU at 1541 RPT #: [id number] END OF REPORT [id number] 12:15:00 [facility] ([facility]) Pulmonology Progress Note REPORT#:[id number] REPORT STATUS: Signed DATE:01/01/21 TIME:1214 PATIENT: LORI DELUCA UNIT #: [id number] ROOM/BED: [place] [address] : 67 AGE: 55 SEX: F ATTEND: [...] sounds Extremities: edema, no cyanosis, no edema Neuro/MIXER LEVER OPERATOR: alert, oriented X 3, CNII-XII intact Results [...] (Auto) (20.5 - 51.1 %) 8.0 L [place] % (Auto) (1.7 - 9.3 %) 5.6 Eos % (Auto) (0.0 - 6.0 %) 0.1 Baso % (Auto) (0.0 - 2.0 %) 0.2 Neut # (Auto) (1.8 - 7.6 K/mm3) 7.5 Lymph # (Auto) (0.6 - 3.2 K/mm3) 0.7 [place] # (Auto) (0.3 - 1.1 K/mm3) 0.5 [...] airspace opacities. Impression By: DakotahANSMarley Matthew M.D. Diagnosis, Assessment Plan Hospital course [...] Hospital course to date: evaluated, discussed with CLOTHES WRINGER . discussed plan Agree with above at 1541 at 2207 RPT #: [id number] END OF REPORT [id number] 11:58:00 [facility] ([facility]) Hospitalist Progress Note REPORT#:[id number] REPORT STATUS: Signed DATE:01/01/21 TIME:1158 PATIENT: LORI DELUCA UNIT #: [id number] ROOM/BED: [place] [address] : 67 AGE: 55 SEX: F ATTEND: [...] 12/31 1201 92 39 136/75 94 79 0616 1200 High flow 15 nasal cannula 24 [...] no guarding Extremities: moves all, no edema Neuro/MIXER LEVER OPERATOR: alert, oriented X 3, normal speech, no [...] plan Next of kin sister Madelyn ferguson [phone] 12/28/2020 Covid 19 Pneumonia COPD HTN DM [...] has no official past medical power of insurance defense attorney but and next of kin is her [...] to 10 L, will transfer to telemetry [facility] [place] CODE STATUS Full code Noted patient has no official past medical power of insurance defense attorney but and next of kin is her sister Madelyn Ferguson which she told me can make decisions for her if he ever becomes incapacitated. at 1201 RPT #: [id number] END OF REPORT [id number] 11:58:00 [facility] ([facility]) Hospitalist Progress Note REPORT#:[id number] REPORT STATUS: Signed DATE:01/01/21 TIME:1158 PATIENT: LORI DELUCA UNIT #: [id number] ROOM/BED: [place] [address] : [birth year] AGE: 55 SEX: F ATTEND: [...] no guarding Extremities: moves all, no edema Neuro/MIXER LEVER OPERATOR: alert, oriented X 3, normal speech, no [...] plan Next of kin sister Madelyn ferguson [phone] 12/28/2020 Covid 19 Pneumonia COPD HTN DM [...] has no official past medical power of insurance defense attorney but and next of kin is her [...] to 10 L, will transfer to telemetry [facility] CODE STATUS Full code Noted patient has no official past medical power of insurance defense attorney but and next of kin is her sister Madelyn Ferguson which she told me can make decisions for her if he ever becomes incapacitated. at 1201 Addendum 1: 01/01/21 1758 by Yandy Johnson MD critical care time 35 mins at 1758 RPT #: [id number] END OF REPORT [id number] 10:13:00 [facility] ([facility] Infectious Dis. Progress Note REPORT#:[id number] REPORT STATUS: Signed DATE:01/01/21 TIME:1013 PATIENT: LORI DELUCA UNIT #: [id number] ROOM/BED: [place] [address] : 67 AGE: 55 SEX: F ATTEND: [...] Abdomen: non-tender, soft Musculoskeletal: no joint swelling Neuro/MIXER LEVER OPERATOR: alert, oriented X 3 Skin: normal color, [...] O2 as tolerated. at 1158 RPT #: [id number] END OF REPORT [id number] 15:16:00 [facility] ([facility] Infectious Dis. Progress Note REPORT#:[id number] REPORT STATUS: Signed DATE:12/31/20 TIME:1515 PATIENT: LORI DELUCA UNIT #: [id number] ROOM/BED: [place] [address] : 67 AGE: 55 SEX: F ATTEND: [...] normal capillary refill, no clubbing, no cyanosis Neuro/MIXER LEVER OPERATOR: alert, oriented X 3 Results Findings/Data: Laboratory Tests 12/31 12/31 12/31 12/30 12/30 1156 0754 2638 2453 1718 Chemistry Sodium (134 - 147 mmol/L) [...] (Auto) (20.5 - 51.1 %) 5.8 L [place] % (Auto) (1.7 - 9.3 %) 4.1 Eos % (Auto) (0.0 - 6.0 %) 0.0 Baso % (Auto) (0.0 - 2.0 %) 0.2 Neut # (Auto) (1.8 - 7.6 K/mm3) 9.5 H Lymph # (Auto) (0.6 - 3.2 K/mm3) 0.6 [place] # (Auto) (0.3 - 1.1 K/mm3) 0.4 [...] interstitial and groundglass airspace opacities. Impression By: Jan - Adam Matthew M.D. Assessment: 1. Pneumonia [...] tolerated. [ ] at 1557 RPT #: [id number] END OF REPORT [id number] 15:16:00 [facility] ([facility]) Infectious Dis. Progress Note REPORT#:[id number] REPORT STATUS: Signed DATE:12/31/20 TIME:1515 PATIENT: LORI DELUCA UNIT #: [id number] [place]BED: [place] : 69 AGE: 55 SEX: F ATTEND: [...] normal capillary refill, no clubbing, no cyanosis Neuro/MIXER LEVER OPERATOR: alert, oriented X 3 Results Findings/Data: Laboratory [...] (Auto) (20.5 - 51.1 %) 5.8 L [place] % (Auto) (1.7 - 9.3 %) 4.1 Eos % (Auto) (0.0 - 6.0 %) 0.0 Baso % (Auto) (0.0 - 2.0 %) 0.2 Neut # (Auto) (1.8 - 7.6 K/mm3) 9.5 H Lymph # (Auto) (0.6 - 3.2 K/mm3) 0.6 [place] # (Auto) (0.3 - 1.1 K/mm3) 0.4 [...] Impression By: [email or web address] - Adam Matthew M.D. Assessment: 1. Pneumonia [...] ] at 1557 at 1604 RPT #: [id number] END OF REPORT [id number] 13:02:00 [facility] ([facility]) Pulmonology Progress Note REPORT#:[id number] REPORT STATUS: Signed DATE:12/31/20 TIME:1302 PATIENT: LORI DELUCA UNIT #: [id number] ROOM/BED: [place] [address] : [birth year] AGE: 55 SEX: F ATTEND: [...] sounds Extremities: edema, no cyanosis, no edema Neuro/MIXER LEVER OPERATOR: alert, oriented X 3, CNII-XII intact Results Findings/Data: Laboratory Tests 12/31/20434: [Embedded Image Not Available] Laboratory Tests 12/31 12/31 12/31 12/30 1156 0754 4287 1943 Chemistry Sodium (134 - 147 mmol/L) [...] 110 mg/dL) 185 H Laboratory Tests 12/31 603 Hematology WBC (3.5 - 11.0 K/mm3) 10.8 [...] (Auto) (20.5 - 51.1 %) 5.8 L [place] % (Auto) (1.7 - 9.3 %) 4.1 Eos % (Auto) (0.0 - 6.0 %) 0.0 Baso % (Auto) (0.0 - 2.0 %) 0.2 Neut # (Auto) (1.8 - 7.6 K/mm3) 9.5 H Lymph # (Auto) (0.6 - 3.2 K/mm3) 0.6 [place] # (Auto) (0.3 - 1.1 K/mm3) 0.4 [...] GI prophylaxis IMCU at 1618 RPT #: [id number] END OF REPORT [id number] 13:02:00 [facility] ([facility]) Pulmonology Progress Note REPORT#:[id number] REPORT STATUS: Signed DATE:12/31/20 TIME:1302 PATIENT: LORI DELUCA UNIT #: [id number] ROOM/BED: [place] [address] : [birth year] AGE: 55 SEX: F ATTEND: [...] sounds Extremities: edema, no cyanosis, no edema Neuro/MIXER LEVER OPERATOR: alert, oriented X 3, CNII-XII intact Results Findings/Data: Laboratory Tests 12/31/20434: [Embedded Image Not Available] Laboratory Tests 12/31 12/31 12/31 12/30 1156 0754 4395 1943 Chemistry Sodium (134 - 147 mmol/L) [...] 110 mg/dL) 185 H Laboratory Tests 12/31 434 Hematology WBC (3.5 - 11.0 K/mm3) 10.8 [...] (Auto) (20.5 - 51.1 %) 5.8 L [place] % (Auto) (1.7 - 9.3 %) 4.1 Eos % (Auto) (0.0 - 6.0 %) 0.0 Baso % (Auto) (0.0 - 2.0 %) 0.2 Neut # (Auto) (1.8 - 7.6 K/mm3) 9.5 H Lymph # (Auto) (0.6 - 3.2 K/mm3) 0.6 [place] # (Auto) (0.3 - 1.1 K/mm3) 0.4 [...] Free Text A P: evaluated, discussed with CLOTHES WRINGER . discussed plan Agree with above at 1618 at 2022 RPT #: [id number] END OF REPORT [id number] 12:46:00 [facility] ([facility]) Hospitalist Progress Note REPORT#:[id number] REPORT STATUS: Signed DATE:12/31/20 TIME:1246 PATIENT: LORI DELUCA UNIT #: [id number] ROOM/BED: [place] [address] : [birth year] AGE: 55 SEX: F ATTEND: [...] 12/31 0800 36.8 12/31 0608 77 92 /16 0607 78 123/78 12/31 0600 81 23 06/16 0500 77 / 0445 81 26 92 / 0430 71 95 12/31 0415 66 26 94 / 0400 78 12/31 0323 36.9 12/31 0100 79 114/72 93 /16 0045 71 119/68 92 /16 0030 76 113/63 92 / 0015 74 124/75 93 /16 0000 69 27 124/74 94 / 2300 36.8 12/30 2201 High flow 15 nasal cannula 12/30 1945 36.7 / 1940 73 95 /15 1930 74 27 110/70 95 /15 1915 71 26 108/64 96 /15 1900 68 25 108/60 94 /15 1849 96 High flow 15 100 nasal cannula 12/30 1730 75 30 109/65 81 90 06/15 1724 36.8 06/ 1700 81 29 106/67 82 91 06/15 1630 73 31 114/76 88 95 /15 1600 High flow 15 nasal cannula 12/30 1600 67 22 111/61 80 95 /15 [...] no guarding Extremities: moves all, no edema Neuro/MIXER LEVER OPERATOR: alert, oriented X 3, normal speech, no [...] plan Next of kin sister Madelyn ferguson [phone] 12/28/2020 Covid 19 Pneumonia COPD HTN DM [...] has no official past medical power of insurance defense attorney but and next of kin is her sister Madelyn Ferguson which she told me can make decisions for her if he ever becomes incapacitated. at 1249 RPT #: [id number] END OF REPORT [id number] 15:04:00 [facility] ([facility]) Pulmonology Progress Note REPORT#:[id number] REPORT STATUS: Signed DATE:12/30/20 TIME:1504 PATIENT: LORI DELUCA UNIT #: [id number] ROOM/BED: [place] [id number] : 69 AGE: 55 SEX: F ATTEND: [...] sounds Extremities: edema, no cyanosis, no edema Neuro/MIXER LEVER OPERATOR: alert, oriented X 3, CNII-XII intact Psychiatry: normal affect, normal judgment/insight Results Findings/Data: Laboratory Tests 12/30/20 0520: [Embedded Image Not Available] 12/30/20 0425: [Embedded Image Not Available] Laboratory Tests 12/29 12/29 7048 6293 Blood Gas Puncture Site (DESCRIPTION ARTKIT) Right [...] (Auto) (20.5 - 51.1 %) 7.8 L [place] % (Auto) (1.7 - 9.3 %) 4.5 Eos % (Auto) (0.0 - 6.0 %) 0.0 Baso % (Auto) (0.0 - 2.0 %) 0.1 Neut # (Auto) (1.8 - 7.6 K/mm3) 7.1 Lymph # (Auto) (0.6 - 3.2 K/mm3) 0.6 [place] # (Auto) (0.3 - 1.1 K/mm3) 0.4 [...] anticoagulation GI prophylaxis at 1510 RPT #: [id number] END OF REPORT [id number] 11:33:00 [facility] ([facility]) Hospitalist Progress Note REPORT#:[id number] REPORT STATUS: Signed DATE:12/30/20 TIME:1132 PATIENT: LORI DELUCA UNIT #: [id number] ROOM/BED: [place] [address] : [birth year] AGE: 55 SEX: F ATTEND: [...] 12/30 1046 69 27 146/72 104 88 / 1045 67 20 98 / 1031 71 24 131/83 102 97 / 1030 73 22 94 / 1016 77 27 129/69 96 / 1015 75 24 12/30 1011 95 High flow 15 100 nasal cannula 12/30 1000 74 35 134/84 101 95 /15 0945 73 36 127/73 95 96 /15 0930 81 37 118/74 91 93 /15 0916 81 35 115/66 86 68 06/15 [...] 06/14 2045 79 22 141/68 97 92 12/29 2029 81 26 134/85 100 96 12/29 2014 84 23 130/71 94 92 12/30 1999 BiPAP 70 12/30 1999 35.9 78 25 134/75 94 95 BiPAP 70 12/30 1999 78 25 134/75 99 95 12/29 1945 87 25 138/78 96 93 12/29 1930 80 23 145/83 107 93 12/29 1924 79 96 70 12/29 1915 86 30 128/78 96 97 12/29 1901 86 28 119/79 94 97 12/29 1655 36.7 108 15 130/83 98.4 84 [...] no guarding Extremities: moves all, no edema Neuro/MIXER LEVER OPERATOR: alert, oriented X 3, normal speech, no [...] plan Next of kin sister Madelyn ferguson [phone] 12/28/2020 Covid 19 Pneumonia COPD HTN DM [...] downgrade to IMCU at 1135 RPT #: [id number] END OF REPORT [id number] 10:44:00 [facility] ([facility]) Infectious Dis. Progress Note REPORT#:[id number] REPORT STATUS: Signed DATE:12/30/20 TIME:1044 PATIENT: LORI DELUCA UNIT #: [id number] ROOM/BED: [place] [id number] : 67 AGE: 55 SEX: F ATTEND: [...] Free Text A P: Labs: WBC normal 12/27, normal 12/30 Creatinine slight high 12/27, normal / ALT normal 12/27 Imaging: CTA no PE, there were bilateral infiltrates 12/27 Assessment: 1. Pneumonia with covid-19 s/p CV plasma. 2. Acute respiratory failure with hypoxia. 3. Morbid obesity. Plan: 1. Continue remdesivir (day 4 of 5). 2. Steroids. 3. Monitor inflammatory markers. CRP has increased. 4. Start ceftriaxone. at 1800 RPT #: [id number] END OF REPORT [id number] 15:36:00 [facility]) Pulmonology Progress Note REPORT#:[id number] REPORT STATUS: Signed DATE:12/29/20 TIME:1536 PATIENT: LORI DELUCA UNIT #: [id number] ROOM/BED: [place] [id number] : 67 AGE: 55 SEX: F ATTEND: [...] sounds Extremities: edema, no cyanosis, no edema Neuro/MIXER LEVER OPERATOR: alert, oriented X 3, CNII-XII intact Psychiatry: [...] board Enhanced anticoagulation at 1541 RPT #: [id number] END OF REPORT [id number] 15:36:00 [facility]) Pulmonology Progress Note REPORT#:[id number] REPORT STATUS: Signed DATE:12/29/20 TIME:153 PATIENT: LORI DELUCA UNIT #: [id number] ROOM/BED: [id number] : 67 AGE: 55 SEX: [...] sounds Extremities: edema, no cyanosis, no edema Neuro/MIXER LEVER OPERATOR: alert, oriented X 3, CNII-XII intact Psychiatry: [...] Free Text A P: evaluated, discussed with CLOTHES WRINGER . discussed plan Agree with above at 1541 RPT #: [id number] END OF REPORT [id number] 15:36:00 [facility] ([facility]) Pulmonology Progress Note REPORT#:[id number] REPORT STATUS: Signed DATE:12/29/20 TIME:1536 PATIENT: LORI DELUCA UNIT #: [id number] ROOM/BED: [place] [id number] : 67 AGE: 55 SEX: F ATTEND: Alfred Escobedo MD ADM AUTHOR: Sergio Love * ALL edits or amendments must be made on the electronic/computer document * IvanAshleighJagdeep 12/29/20 1536: Subjective Chief Complaint: On 13L/min [...] sounds Extremities: edema, no cyanosis, no edema Neuro/MIXER LEVER OPERATOR: alert, oriented X 3, CNII-XII intact Psychiatry: [...] Free Text A P: evaluated, discussed with CLOTHES WRINGER . discussed plan Agree with above at 1541 at 1956 RPT #: [id number] END OF REPORT [id number] 11:31:00 [facility] ([facility]) Infectious Dis. Progress Note REPORT#:[id number] REPORT STATUS: Signed DATE:12/29/20 TIME:113 PATIENT: LORI DELUCA UNIT #: [id number] ROOM/BED: [place] [id number] : 67 AGE: 55 SEX: F ATTEND: [...] Free Text A P: Labs: WBC normal 6/12 Creatinine slight high 6/12 ALT normal /12 Imaging: CTA no PE, there were bilateral infiltrates 12/27 Assessment: 1. Pneumonia with covid-19 s/p CV plasma. 2. Acute respiratory failure with hypoxia. 3. Morbid obesity. Plan: 1. Continue remdesivir (day 3 of 5). 2. Steroids. 3. Monitor inflammatory markers. 4. Low threshold to start antibiotics. at 1433 RPT #: [id number] END OF REPORT [id number] 09:24:00 [facility]) Hospitalist Progress Note REPORT#:[id number] REPORT STATUS: Signed DATE:12/29/20 TIME:09 PATIENT: LORI DELUCA UNIT #: [id number] ROOM/BED: [place] [id number] : 67 AGE: 55 SEX: F ATTEND: Alfred Escobedo MD ADM AUTHOR: Ever Rey CLOTHES WRINGER * ALL edits or amendments must be made on the electronic/computer document * Ever Rey 12/29/20 0924: Subjective Chief Complaint: stable. keep taking [...] no guarding Extremities: moves all, no edema Neuro/MIXER LEVER OPERATOR: alert, oriented X 3, normal speech, no motor deficits, no sensory deficits Psychiatry: normal affect Results Findings/Data: Laboratory Tests 12/29 12/29 12/29 12/28 1205 1136 0743 2009 Chemistry Sodium (134 - 147 mmol/L) 136 [...] plan Next of kin sister Madelyn ferguson [phone] 12/28/2020 Covid 19 Pneumonia COPD HTN DM [...] oxygen at 1250 at 1524 RPT #: [id number] END OF REPORT [id number] 09:24:00 [facility] ([facility]) Hospitalist Progress Note REPORT#:[id number] REPORT STATUS: Signed DATE:12/29/20 TIME:923 PATIENT: LORI DELUCA UNIT #: [id number] ROOM/BED: [place] [address] : 67 AGE: 55 SEX: F ATTEND: [...] no guarding Extremities: moves all, no edema Neuro/MIXER LEVER OPERATOR: alert, oriented X 3, normal speech, no motor deficits, no sensory deficits Psychiatry: normal affect Results Findings/Data: Laboratory Tests 12/29 12/29 12/29 12/28 1205 1136 0780 2009 Chemistry Sodium (134 - 147 mmol/L) 136 [...] plan Next of kin sister Madelyn ferguson [phone] 12/28/2020 Covid 19 Pneumonia COPD HTN DM [...] lovenox plan. cont remdesivir/wean oxygen at 1250 [facility] #: [id number] END OF REPORT [id number] 17:41:00 [facility] ([facility]) Pulmonary Consultation Note REPORT#:[id number] REPORT STATUS: Signed DATE:12/28/20 TIME:1741 PATIENT: LORI DELUCA UNIT #: [id number] ROOM/BED: [place] [address] : 67 AGE: 55 SEX: F ATTEND: Alfred Escobedo MD ADM AUTHOR: Daniel Tariq MD * ALL edits or amendments must be made on the electronic/computer document * History of Present Illness Free Text HPI Notes Free Text HPI Notes: 55-year-old lady who was transferred from [facility] ER for acute hypoxic respiratory failure [...] Resp 16 12/28 1516 O2 Flow Rate 12/28 1134 FiO2 76 12/28 0728 Head/eyes: atraumatic, normocephalic ENT: ENT: normal nose, normal sinus Abdomen: soft, normal bowel sounds Extremities: edema, no cyanosis, no edema Neuro/MIXER LEVER OPERATOR: alert, oriented X 3, CNII-XII intact Psychiatry: normal affect, normal judgment/insight Results Findings/Data: Laboratory Tests 12/278 Blood Gas Puncture Site (DESCRIPTION ARTKIT) Left [...] up with you at 1744 RPT #: [id number] END OF REPORT [id number] 11:51:00 [facility] ([facility]) Hospitalist Progress Note REPORT#:[id number] REPORT STATUS: Signed DATE:12/28/20 TIME:1151 PATIENT: LORI DELUCA UNIT #: [id number] ROOM/BED: [place] [address] : 67 AGE: 55 SEX: F ATTEND: [...] no guarding Extremities: moves all, no edema Neuro/MIXER LEVER OPERATOR: alert, oriented X 3, normal speech, no [...] (Auto) (20.5 - 51.1 %) 9.1 L [place] % (Auto) (1.7 - 9.3 %) 3.2 Eos % (Auto) (0.0 - 6.0 %) 0.1 Baso % (Auto) (0.0 - 2.0 %) 0.3 Neut # (Auto) (1.8 - 7.6 K/mm3) 8.8 H Lymph # (Auto) (0.6 - 3.2 K/mm3) 0.9 [place] # (Auto) (0.3 - 1.1 K/mm3) 0.3 [...] plan Next of kin sister Madelyn ferguson [phone] 12/28/2020 Covid 19 Pneumonia COPD HTN DM [...] improvement at 1410 at 1524 RPT #: [id number] END OF REPORT [id number] 11:51:00 [facility] ([facility]) Hospitalist Progress Note REPORT#:[id number] REPORT STATUS: Signed DATE:12/28/20 TIME:1151 PATIENT: LORI DELUCA UNIT #: [id number] ROOM/BED: [place] [address] : 67 AGE: 55 SEX: F ATTEND: [...] no guarding Extremities: moves all, no edema Neuro/MIXER LEVER OPERATOR: alert, oriented X 3, normal speech, no [...] - 1.2 INR Unit) 1.30 H PTT ([place]) (26 - 35 SECONDS) 38.1 H >400 *H PT Patient/Control Mix (9.3 - 12.9 SECONDS) 14.6 H Laboratory Tests 12/27 1741 Hematology WBC (3.5 - 11.0 K/mm3) 10.3 [...] (Auto) (20.5 - 51.1 %) 9.1 L [place] % (Auto) (1.7 - 9.3 %) 3.2 Eos % (Auto) (0.0 - 6.0 %) 0.1 Baso % (Auto) (0.0 - 2.0 %) 0.3 Neut # (Auto) (1.8 - 7.6 K/mm3) 8.8 H Lymph # (Auto) (0.6 - 3.2 K/mm3) 0.9 [place] # (Auto) (0.3 - 1.1 K/mm3) 0.3 Eos # (Auto) (0.0 - 0.4 K/mm3) 0.0 Baso # (Auto) (0.0 - 0.1 K/mm3) 0.0 Abs Immat Gran (auto) (0.00 - 0.03 x10 3/uL) 0.17 H Add Manual Diff (CRITERIA DIFF/SCN) NO Immature Gran % (0.0 - 5.0 %) 1.7 Nucleated RBC % (0.0 - 1.0 /100WBC%) 0.3 Laboratory Tests 12/274 Urines Urine HCG, Qual (NEGATIVE) NEGATIVE Radiology [...] plan Next of kin sister Madelyn ferguson [phone] 12/28/2020 Covid 19 Pneumonia COPD HTN DM Morbid Obesity Plan ----- -Continue on remdesevir -Continue COVID treatment protocol ( steroids, vit c/d/zinc) -Prone positioning as tolerated -Monitor inflammatory markers -Hiflow oxygen prn -Pulm and ID following -Accuchecks with ISS -Diabetic diet -Ensure tight glucose control -Resume home meds for BP control -Dispo-pendng completion of therapy and clinical improvement at 1410 RPT #: [id number] END OF REPORT [id number] 11:12:00 [facility] ([facility]) Infect Disease Consult Note REPORT#:[id number] REPORT STATUS: Signed DATE:12/28/20 TIME:1112 PATIENT: LORI DELUCA UNIT #: [id number] ROOM/BED: [place] [address] : 67 AGE: 55 SEX: F ATTEND: Alfred Escobedo MD ADM AUTHOR: Andrew Aguilar MD * ALL edits or amendments must be made on the electronic/computer document * History of Present Illness Reason for consult: Pneumonia HPI: 55-year-old lady who was transferred from [facility] for acute hypoxic respiratory failure with Covid [...] nasal cannula 12/28 1134 O2 Flow Rate 12/28 1134 Temp 36.5 12/28 1134 Pulse [...] contracture, no cyanosis Musculoskeletal: no joint swelling Neuro/MIXER LEVER OPERATOR: alert, oriented X 3, CNII-XII intact, normal speech Skin: normal color, normal turgor, no rash Psychiatry: normal affect, normal judgment/insight, normal mood Diagnosis, Assessment Plan Free Text DxA P Notes Free text DxA P notes: Labs: WBC normal 6/12 Creatinine slight high 612 ALT normal 6/12 Imaging: CTA no PE, there were bilateral infiltrates 6/12 Assessment: 1. Pneumonia with covid-19. 2. Acute respiratory failure with hypoxia. 3. Morbid obesity. Plan: 1. Continue remdesivir (day 2). 2. Steroids. 3. Pt initially declined CV plasma but then she changed her mind. CV plasma ordered. 4. Monitor inflammatory markers. 5. Low threshold to start antibiotics. Thank you for this consult. at 1511 RPT #: [id number] END OF REPORT [id number] 00:14:00 [facility] ([facility]) Clinical Note REPORT#:[id number] REPORT STATUS: Signed DATE:12/28/20 TIME:13 PATIENT: LORI DELUCA UNIT #: [id number] ROOM/BED: [place] [address] : 67 AGE: 55 SEX: F ATTEND: [...] a spirite drink. at 0317 RPT #: [id number] END OF REPORT [id number] 00:14:00 [facility] ([facility]) Clinical Note REPORT#:[id number] REPORT STATUS: Signed DATE:12/28/20 TIME:13 PATIENT: LORI DELUCA UNIT #: [id number] ROOM/BED: [place] [address] : 67 AGE: 55 SEX: F ATTEND: [...] drink. at 0317 at 1423 RPT #: [id number] END OF REPORT [id number] 18:30:00 [facility] ([facility]) Hospitalist History Physical REPORT#:[id number] REPORT STATUS: Signed DATE:12/27/20 TIME:1830 PATIENT: LORI DELUCA UNIT #: [id number] ROOM/BED: [place] [address] : 67 AGE: 55 SEX: F ATTEND: Alfred Escobedo MD ADM AUTHOR: Alfred Escobedo MD * ALL edits or amendments must be made on the electronic/computer document * History of Present Illness HPI Chief complaint: Shortness of breath for 3 days PCP: PCP: No Primary or Family Physician HPI: This is 55-year-old lady who was transferred from [facility] for acute hypoxic respiratory failure with Covid [...] no guarding Extremities: moves all, no edema Neuro/MIXER LEVER OPERATOR: alert, oriented X 3, normal speech, no [...] (Auto) (20.5 - 51.1 %) 9.1 L [place] % (Auto) (1.7 - 9.3 %) 3.2 Eos % (Auto) (0.0 - 6.0 %) 0.1 Baso % (Auto) (0.0 - 2.0 %) 0.3 Neut # (Auto) (1.8 - 7.6 K/mm3) 8.8 H Lymph # (Auto) (0.6 - 3.2 K/mm3) 0.9 [place] # (Auto) (0.3 - 1.1 K/mm3) 0.3 [...] plan Next of kin sister Madelyn ferguson [phone] at 8094 RPT #: [id number] END OF REPORT [id number] 17:28:00 [facility] ([facility]) EMERGENCY PROVIDER REPORT REPORT#:[id number] REPORT STATUS: Signed DATE:12/27/20 TIME:1727 PATIENT: LORI DELUCA UNIT #: [id number] ROOM/BED: [place] [address] : 67 AGE: 55 SEX: F PCP PHYS: No Primary or Family Physician SERVICE AUTHOR: Nancie Brandon MD * ALL edits or amendments must be made on the electronic/computer document * HPI-Dyspnea/Wheezing Free Text HPI Notes Free Text HPI Notes 55yo WF with PMH of COPD, HTN, and morbid obesity transferred from [facility] with COVID pneumonia. Presented to OSH with progressively worsening shortness of breath and fever x 3 days. 78% on RA with EMS; 96% on 15L NRB. Of note, patient was not unable to fit in CT scan at [facility] despite positive D-dimer due to morbid [...] plus titratable infusion General Initial Greet Date/Time 12/27/201725 Presentation Chief Complaint Shortness of breath )( [...] 85 12/27 1726 Resp 22 12/27 1726 Review of Vital Signs Reviewed, Vital signs [...] (Auto) (20.5 - 51.1 %) 9.1 L [place] % (Auto) (1.7 - 9.3 %) 3.2 Eos % (Auto) (0.0 - 6.0 %) 0.1 Baso % (Auto) (0.0 - 2.0 %) 0.3 Neut # (Auto) (1.8 - 7.6 K/mm3) 8.8 H Lymph # (Auto) (0.6 - 3.2 K/mm3) 0.9 [place] # (Auto) (0.3 - 1.1 K/mm3) 0.3 [...] AAF with PMH as above transferred from [facility] for COVID Pneumonia. Case d/w Dr. [...] IV 01/10 1759 Patient Discharge Departure Vital Signs/Condition Vital Signs First Documented: Result Date Time Pulse Ox 95 12/27 1726 B/P 127/72 12/27 1726 B/P Mean 90 12/27 1726 O2 Delivery Nasal cannula 12/27 172 O2 Flow Rate 5 12/27 1726 Temp 98.5 12/27 1726 Pulse 85 12/27 1726 Resp 22 12/27 1726 Last Documented: Result Date Time Pulse Ox 95 12/27 172 B/P 127/72 12/27 172 B/P Mean 90 12/27 172 O2 Delivery Nasal cannula 12/27 172 O2 Flow Rate 5 12/27 172 Temp 98.5 12/27 1726 Pulse 85 12/27 1726 Resp 22 12/27 1726 All vital signs available at the [...] ECG for CP Performed documented at [address] [facility] #: [id number] [facility]"
[2024-05-16 15:43] LABS: Absolute Basophils 0.1 K/uL (0-0.5); Absolute Eosinophils 0.2 K/uL (0-0.5); Absolute Monocytes 0.7 K/uL (0.1-1.3); Absolute Neutrophil 7.9 K/uL (1.8-8.0); Basophils % 0.7 % (0-1.3); Eosinophils % 2.1 % (0-4.4); Hematocrit 45.6 % (36.0-45.0); Lymphocytes % 18.6 % (15.3-44.8); MCH 28.8 pg (27.0-35.0); MCHC 32.8 g/dL (32.0-36.0); MCV 87.6 fL (80-100); MPV 9.3 fL (7.6-11.3); Monocytes % 6.1 % (3.3-12.3); Neutrophils % 72.5 % (41.7-73.7); Platelets 254 thou/uL (152-406); RBC Red Blood Cell Count 5.21 M/uL (3.86-4.86); Red Cell Distribution Width 14.5 % (12.1-15.2)
[2024-05-16 15:54] LABS: Albumin 3.5 g/dL (3.4-5.0); Albumin/Globulin Ratio 0.8 (1.1-1.8); Anion Gap 9.1 mEq/L (5.0-15.0); Bilirubin Total 1.6 mg/dL (0.2-1.0); Globulin 4.4 g/dL (2.3-3.5); Potassium 4.1 mEq/L (3.5-5.1); Protein, Total 7.9 g/dL (6.4-8.2)
[2024-05-16 16:06] LABS: Specific Gravity 1.027 (1.005-1.030)
[2024-05-16 16:09] LABS: Specific Gravity 1.027 (1.005-1.030); Urine Bacteria >50 /HPF (<20); Urine Bilirubin NEGATIVE (Negative); Urine Blood Negative (Negative); Urine Clarity Extremely Turbid (Clear); Urine Color Yellow (Yellow); Urine Crystals Unidentified Few /HPF (None Seen); Urine Culture Reflex Order REFLEXED; Urine Glucose NEGATIVE (Negative); Urine Ketones NEGATIVE (Negative); Urine Microscopic Reflex YN ORDER UMIC; Urine Mucus 3+ /HPF (None Seen); Urine Nitrite NEGATIVE (Negative); Urine Protein TRACE (Negative); Urine Urobilinogen Normal (Normal); Urine WBC 20-50 /HPF (<5); Urine pH 5.5 (5.0-7.0)
--- NOTE | 2024-05-16 18:48 | EDPHYS ---
Physician Documentation [facility] Name: Sena Wu Age: 59 yrs Sex: Female : 1965 Arrival Date: 05/16/2024 Time: 14:13 Bed 23 Private MD: ED Physician Shahriar Cruz HPI: 05/16 18:42 This 59 yrs old Female presents to ER via Wheelchair with complaints of Sent ci By Doctor. 18:42 Patient is a 59-year-old female with PMH COPD, hypertension, depression, obesity who ci presents to the ED with chief complaint of intermittent bleeding from umbilicus that began 5 months ago. Had an episode that occurred yesterday with blood clots from umbilicus. Patient called her family doctor and was told to come to the ER. Denies any nausea/vomiting, no fever, diarrhea, constipation.. Historical: - Allergies: 14:26 ACETAMINOPHEN; cm10 14:26 Codeine; cm10 14:26 diphenhydramine HCl; cm10 14:26 tramadol; cm10 - PMHx: 14:26 Arthritis; COPD; Depression; Hypertension; Obesity; cm10 - Immunization history:: Adult Immunizations up to date. - Infectious Disease History:: Denies. - Social history:: Smoking status: Patient denies any tobacco usage or history of. ROS: 18:42 Constitutional: Negative for fever, chills, and weight loss, Cardiovascular: Negative ci for chest pain, palpitations, and edema, Respiratory: Negative for shortness of breath, cough, wheezing, and pleuritic chest pain, Abdomen/GI: Negative for abdominal pain, nausea, vomiting, diarrhea, and constipation. Positive bleeding from umbilicus Skin: Negative for injury, rash, and discoloration, Neuro: Negative for headache, weakness, numbness, tingling, and seizure, Exam: 18:42 Constitutional: This is a well developed, well nourished patient who is awake, alert, ci and in no acute distress. Head/Face: Normocephalic, atraumatic. Cardiovascular: Regular rate and rhythm with a normal S1 and S2. No gallops, murmurs, or rubs. Normal PMI, no JVD. No pulse deficits. Respiratory: Lungs have equal breath sounds bilaterally, clear to auscultation and percussion. No rales, rhonchi or wheezes noted. No increased work of breathing, no retractions or nasal flaring. Abdomen/GI: Soft, non-tender, with normal bowel sounds. No distension or tympany. No guarding or rebound. No evidence of tenderness throughout. Negative active bleeding from umbilicus, no erythema, purulent drainage. Skin: Warm, dry with normal turgor. Normal color with no rashes, no lesions, and no evidence of cellulitis. MS/ Extremity: Pulses equal, no cyanosis. Neurovascular intact. Full, normal range of motion. Neuro: Awake and alert, GCS 15, oriented to person, place, time, and situation. Cranial nerves II-XII grossly intact. Motor strength 5/5 in all extremities. Sensory grossly intact. Cerebellar exam normal. Normal gait. Vital Signs: 14:24 BP 106 / 71; Pulse 87; Resp 16; Temp 98.6(O); Pulse Ox 94% on R/A; Weight 189.15 kg; cm10 Height 5 ft. 1 in. ; Pain 0/10; 17:33 BP 104 / 76; Pulse 72; Resp 16; Pulse Ox 98% on R/A; jb4 18:10 BP 102 / 65; Pulse 77; Resp 16; Pulse Ox 95% on R/A; jb4 14:24 Body Mass Index 78.79 (189.15 kg, 154.94 cm) cm10 14:24 Pain Scale: Adult cm10 MDM: 14:45 Medical Screening Exam initiated ci 18:42 Differential Diagnosis Panniculitis, abdominal wall cellulitis, umbilical abscess, ci infection. Doubt SBO. Data reviewed: vital signs, nurses notes, EKG. ED course: CT abdomen/pelvis considered but patient unable to fit into a CT. She has no active bleeding at this time. Symptoms have been ongoing x 5 months, doubt SBO. Patient has no peritoneal signs on exam. Noted to have a UTI, will start on antibiotics and DC with close outpatient follow-up.. 05/16 15:07 Order name: CBC with Diff; Complete Time: 15:48 ci 05/16 15:07 Order name: CMP; Complete Time: 16:32 ci 05/16 15:07 Order name: Lipase; Complete Time: 16:32 ci 05/16 15:07 Order name: Test, Urine; Complete Time: 16:32 ci 05/16 15:07 Order name: Urinalysis w/ reflexes; Complete Time: 16:32 ci 05/16 16:12 Order name: Urine Culture EDMS 05/16 15:07 Order name: IV Saline Lock; Complete Time: 16:20 ci 05/16 15:07 Order name: Labs collected and sent; Complete Time: 16:20 ci Administered Medications: 19:00 Drug: Cephalexin PO 500 mg PO once Route: PO; jb4 Disposition Summary: 05/16/24 18:48 Discharge Ordered Notes: Location: Home ci Problem: an acute exacerbation ci Symptoms: are resolved ci Condition: Stable ci Diagnosis - UTI/ Urinary tract infection, site not specified ci - Periumbilical pain - Umbilicus excoriation ci Followup: ci - With: Private Physician - When: 2 - 3 days - Reason: Recheck today's complaints, Re-evaluation by your physician Discharge Instructions: - Discharge Summary Sheet ci - Abdominal Pain, Adult ci - Urinary Tract Infection, Adult, [id number] ci Forms: - Medication Reconciliation Form ci - Antibiotic Education ci - Prescription Opioid Use ci - Patient Portal Instructions ci - Leadership Thank You Letter ci Prescriptions: - Cephalexin 500 mg Oral Capsule - take 1 capsule ORAL route every 12 hours for 10 days; 20 capsule; Refills: 0, ci Product Selection Permitted Signatures: Dispatcher [employer] Luis Allen, RN RN jb4 Xin Donis RN RN cm10 Shahrair Cruz ci Corrections: (The following items were deleted from the chart) 16:41 15:08 Abdomen Pelvis W Con+CT.RAD.BRZ ordered. EDMS EDMS
--- NOTE | 2024-05-16 18:48 | ER ---
Nurse's Notes [facility] Name: Sena Wu Age: 59 yrs Sex: Female : 1965 Arrival Date: 05/16/2024 Time: 14:13 Bed 23 Private MD: Diagnosis: UTI/ Urinary tract infection, site not specified;Periumbilical pain-Umbilicus excoriation Presentation: 05/16 14:24 Chief complaint: Patient states: Sent by PCP for bleeding from belly button. Pt states cm10 that last night and midnight she was having some pain and then began bleeding and passing clots. Coronavirus screen: Client denies travel out of the [place] in the last 14 days. Ebola Screen: Patient denies travel to an Ebola-affected area in the 21 days before illness onset. No symptoms or risks identified at this time. Initial Sepsis Screen: Does the patient meet any 2 criteria? No. Patient's initial sepsis screen is negative. Does the patient have a suspected source of infection? No. Patient's initial sepsis screen is negative. Risk Assessment: Do you want to hurt yourself or someone else? Patient reports no desire to harm self or others. Onset of symptoms was May 16, 2024. 14:24 Method Of Arrival: Wheelchair cm10 14:24 Acuity: DREW 3 cm10 Triage Assessment: 14:26 General: Appears in no apparent distress. comfortable, Behavior is calm, cooperative. cm10 Pain: Denies pain. Neuro: No deficits noted. Level of Consciousness is awake, alert, obeys commands, Oriented to person, place, time, situation, Appropriate for age. Respiratory: No deficits noted. Airway is patent Respiratory effort is even, unlabored, Respiratory pattern is regular, symmetrical. Historical: - Allergies: 14:26 ACETAMINOPHEN; cm10 14:26 Codeine; cm10 14:26 diphenhydramine HCl; cm10 14:26 tramadol; cm10 - PMHx: 14:26 Arthritis; COPD; Depression; Hypertension; Obesity; cm10 - Immunization history:: Adult Immunizations up to date. - Infectious Disease History:: Denies. - Social history:: Smoking status: Patient denies any tobacco usage or history of. Screenin:34 [facility] ED Fall Risk Assessment (Adult) History of falling in the last 3 months, jb4 including since admission No falls in past 3 months (0 pts) Confusion or Disorientation No (0 pts) Intoxicated or Sedated No (0 pts) Impaired Gait No (0 pts) Mobility Assist Device Used No (0 pt) Altered Elimination No (0 pt) Score/Fall Risk Level 0 - 2 = Low Risk Oriented to surroundings, Maintained a safe environment. Abuse screen: Denies threats or abuse. Nutritional screening: No deficits noted. Tuberculosis screening: No symptoms or risk factors identified. Assessment: 15:10 General: Appears in no apparent distress. comfortable, Behavior is calm, cooperative, jb4 appropriate for age. Pain: Denies pain. Neuro: Level of Consciousness is awake, alert, obeys commands, Oriented to person, place, time, situation. Cardiovascular: Patient's skin is warm and dry. Respiratory: Airway is patent Respiratory effort is even, unlabored, Respiratory pattern is regular, symmetrical. GI: Abdomen is non-distended, obese. Derm: Skin is intact, Skin is pink, warm \T\ dry. Musculoskeletal: Circulation, motion, and sensation intact. Range of motion: intact in all extremities. 16:00 Reassessment: Patient appears in no apparent distress at this time. Patient and/or jb4 family updated on plan of care and expected duration. Pain level reassessed. Patient is alert, oriented x 3, equal unlabored respirations, skin warm/dry/pink. 17:33 Reassessment: Patient appears in no apparent distress at this time. Patient and/or jb4 family updated on plan of care and expected duration. Pain level reassessed. Patient is alert, oriented x 3, equal unlabored respirations, skin warm/dry/pink. Vital Signs: 14:24 BP 106 / 71; Pulse 87; Resp 16; Temp 98.6(O); Pulse Ox 94% on R/A; Weight 189.15 kg; cm10 Height 5 ft. 1 in. ; Pain 0/10; 17:33 BP 104 / 76; Pulse 72; Resp 16; Pulse Ox 98% on R/A; jb4 18:10 BP 102 / 65; Pulse 77; Resp 16; Pulse Ox 95% on R/A; jb4 14:24 Body Mass Index 78.79 (189.15 kg, 154.94 cm) cm10 14:24 Pain Scale: Adult cm10 ED Course: 14:17 Patient arrived in ED. mg5 14:26 Triage completed. cm10 14:26 Arm band placed on left wrist. Patient placed in waiting room. cm10 14:30 Michael Pacheco MD is Attending Physician. rn 14:34 Shahriar Cruz is Attending Physician. ci 15:14 Radiology exam delayed due to lab results not completed at this time. (BUN/Creatinine). nj 15:14 Radiology exam delayed due to IV insertion attempt and/or patient not having nj appropriate IV at this time. 15:33 Inserted saline lock: 20 gauge in right forearm, using aseptic technique. Blood rs6 collected. Flushed with 10 mL NS intraosseous access. 15:59 Urine collected: clean catch specimen, cloudy, joyce colored. rs6 18:10 Luis Bruno, RN is Primary Nurse. jb4 19:34 Patient has correct armband on for positive identification. Bed in low position. Call jb4 light in reach. Side rails up X 1. Provided Education on: discharge plan. 19:34 No provider procedures requiring assistance completed. IV discontinued, intact, jb4 bleeding controlled, No redness/swelling at site. Pressure dressing applied. Administered Medications: 19:00 Drug: Cephalexin PO 500 mg PO once Route: PO; jb4 Outcome: 18:48 Discharge ordered by . ci 19:34 Discharged to home via wheelchair, jb4 19:34 Condition: stable 19:34 Discharge instructions given to patient, Instructed on discharge instructions, follow up and referral plans. medication usage, Demonstrated understanding of instructions, follow-up care, medications, Prescriptions given X 1, 19:35 Patient left the ED. jb4 Signatures: Michael Pacheco MD MD rn Bryson, James, RN RN jb4 Sky Au Clarissa, RN RN cm10 Mary Vo mg5 Shahriar Cruz Ryan rs6
[2024-05-16] MEDS ORDERED: CEPHALEXIN 250 MG CAP ONE (18:57)
[2024-05-16 20:08] VITALS: TEMP 98.6
[2024-05-16 20:20] VITALS: BP 102/65; O2SAT 95
--- NOTE | 2024-05-21 12:26 | EKG ---
Test Date: 2024-05-16 Test Time: 15:44:04 [place] Worker: TORY MEASUREMENT RESULTS: Intervals: Rate: 77 ID: [id number] QRSD: 88 QT: 376 QTc: 425 [place]: P: 26 ID: [id number] QRS: 29 T: 26 INTERPRETIVE STATEMENTS: Normal sinus rhythm Normal ECG Compared to ECG 11/06/2023 10:12:55 No significant changes Electronically Signed On 05-21-24 12:18:26 [employer] SUPERVISOR by Nate Marino
== END 2024-05-16 19:35 | disposition home or self-care (01) ==
LOC: ER 14:13
DX: N39.0 Urinary tract infection, site not specified (principal); F42.4 Excoriation (skin-picking) disorder
CPT/HCPCS: 36415; 36680; 80053; 81001; 81025; 83690; 85025; 87077; 87086; 87088; 87186; 93005; 99284